=== PATIENT | female | born 1935 | race African-American/Black ===

== ENCOUNTER 2017-12-12 10:12 | Inpatient (IN) | payer OTHER ==
--- OUTSIDE RECORDS SUMMARY | 2017-12-12 10:14 | XMS REPORT | Clinical Summary ---
:1935 Author Organization [facility] Address [address] [place] [address] Care Team Providers Name Role Phone Ester Gama MD Primary Care Provider Allergies No Known Allergies Current Medications Prescription Sig. Disp. Refills Start Date End Date Status carvedilol (COREG) Take 12.5 mg by Active 12.5 MG tablet mouth 2 (two) times a day with meals. clopidogrel Take 75 mg by Active (PLAVIX) 75 mg mouth daily. tablet digOXIN (LANOXIN) Take 125 mcg by Active 125 mcg tablet mouth daily. furosemide (LASIX) Take 40 mg by Active 40 mg tablet mouth 2 (two) times a day. megestrol (MEGACE) Take 800 mg by Active 400 mg/10 mL (10 mouth daily. mL) suspension metFORMIN Take 500 mg by Active (GLUCOPHAGE) 500 mg mouth 2 (two) tablet times a day with meals. NIFEdipine CC Take 90 mg by Active (ADALAT CC) 90 MG mouth daily. 24 hr tablet collagenase Apply 1 Active (SANTYL) ointment application topically daily. valsartan (DIOVAN) Take 160 mg by Active 160 MG tablet mouth daily. aspirin (ECOTRIN) Take 81 mg by Active 81 MG enteric mouth daily. coated tablet loperamide Take 2 mg by Active (IMODIUM) 2 mg mouth as needed capsule for diarrhea. pantoprazole 4 Infuse 10 mL (40 1 each 11/13/2017 Active mg/mL in sodium mg total) into a chloride injection venous catheter daily before breakfast. lisinopril Take 5 mg by 11/03/2017 Discontinued (PRINIVIL,ZESTRIL) mouth daily. 5 mg tablet cefepime IVPB 1 Infuse 1 g into a 11/12/2017 11/26/2017 gram Mini-Bag Plus venous catheter every 12 (twelve) hours for 14 days. Active Problems Problem Noted Date Toxic metabolic encephalopathy 11/03/2017 Upper GI bleed 11/02/2017 Overview: Added automatically from request for surgery [id number] Encounters Date Type Specialty Care Team Description 11/12/2017 Anesthesia Event Gastroenterology Marija Can MD 11/12/2017 Procedure Pass Gastroenterology 11/12/2017 Surgery Gastroenterology Rosa, EGD WITH PEG Denny Khan MD INSERTION 11/07/2017 Anesthesia Event Intensive Care Junie Hodgson CRNA 11/07/2017 Procedure Pass Gastroenterology 11/07/2017 Surgery Gastroenterology Rosa EGD WITH control of Denny Khan MD bleeding 11/07/2017 Procedure Pass General Surgery 11/03/2017 [facility] Internal Ester Gama Upper GI bleed (Primary Dx ); - Encounter Medicine MD Mickey Toxic metabolic encephalopathy 11/13/2017 after 12/11/2016 Social History Tobacco Use Types Packs/Day Years Used Date Never Smoker Smokeless Tobacco: Never Used Alcohol Use Drinks/Week oz/Week Comments No Sex Assigned at Date Recorded Not on file Last Filed Vital Signs Vital Sign Reading Time Taken Blood Pressure 117/59 11/13/2017 11:30 AM CDT Pulse 84 11/13/2017 12:00 PM CDT Temperature 36.1 C (96.9 F) 11/13/2017 11:30 AM CDT Respiratory Rate 18 11/13/2017 12:00 PM CDT Oxygen Saturation 99% 11/13/2017 12:00 PM CDT Inhaled Oxygen Concentration - - Weight 56.7 kg (125 lb) 11/13/2017 3:00 AM CDT Height 170.2 cm (5' 7") 11/03/2017 2:14 AM CDT Body Mass Index 19.58 11/13/2017 3:00 AM CDT Plan of Treatment Health Maintenance Due Date Last Done Comments SHINGRIX VACCINE (#1) 1987 ZOSTER VACCINE 1997 PNEUMOCOCCAL POLYSACCHARIDE VACCINE AGE 65 AND OVER 2002 PNEUMOCOCCAL-13 2002 INFLUENZA VACCINE 03/05/2018 Procedures Procedure Name Priority Date/Time Associated Diagnosis Comments EGD WITH PEG 11/12/2017 8:45 AM Toxic metabolic INSERTION CDT encephalopathy EGD WITH control of 11/07/2017 2:00 PM Upper GI bleed bleeding CDT CONSULT TO OSTOMY Routine 11/03/2017 4:20 AM CARE NURSE CDT after 12/11/2016 Results POC glucose (11/13/2017 11:32 AM)Only the most recent of53 resultswithin the time period is included. Component Value Ref Range POC glucose 164 (H) 65 - 99 mg/dL Comment: RN Notified Meter ID: [id number] Phosphoric Acid Supervisor: Charlenevijaytwin Tyler Specimen Performing Laboratory [facility] DEPARTMENT OF PATHOLOGY AND GENOMIC MEDICINE [address] [place] [phone] Estimated GFR (11/13/2017 4:45 AM)Only the most recent of13 resultswithin the time period is included. Component Value Ref Range GFR Non Af Amer 19 (A) mL/min/1.73 m2 GFR Af Amer 24 (A) mL/min/1.73 m2 Comment: Chronic kidney disease: <60 mL/min/1.73m2 Kidney failure: <15 mL/min/1.73m2 The estimated GFR is calculated from the IDMS-traceable Modification of Diet in Renal Disease Equation. The accuracy of the calculation is poor when the creatinine is normal. Calculated values >90 mL/min/1.73m2 are not reported. This equation has not been validated in children (<18 years), women, the elderly (>70 years), or ethnic groups other than Caucasians and Americans. Specimen Performing Laboratory Plasma specimen [facility] DEPARTMENT OF PATHOLOGY AND GENOMIC MEDICINE [address] [place] [phone] CBC with platelet and differential (11/13/2017 4:45 AM)Only the most recent of12 resultswithin the time period is included. Component Value Ref Range WBC 9.3 4.5 - 11.0 k/uL RBC 3.05 (L) 4.20 - 5.50 m/uL HGB 8.8 (L) 12.0 - 16.0 g/dL HCT 25.4 (L) 37.0 - 47.0 % MCV 83.3 82.0 - 100.0 fL MCH 28.9 27.0 - 34.0 pg MCHC 34.6 31.0 - 37.0 g/dL RDW - SD 49.3 37.0 - 55.0 fL MPV 11.4 (H) 6.9 - 11.0 fL Platelet count 62 (L) 150 - 400 K/uL Nucleated RBC 0.50 /100 WBC Neutrophils 76.3 (H) 39.0 - 69.0 % Lymphocytes 13.7 (L) 25.0 - 45.0 % Monocytes 7.3 0.0 - 10.0 % Eosinophils 1.5 0.0 - 5.0 % Basophils 0.1 0.0 - 1.0 % Immature granulocytes 1.1 (H) 0.0 - 1.0 % Specimen Performing Laboratory Blood [facility] DEPARTMENT OF PATHOLOGY AND [facility] MEDICINE [address] [place] [phone] Comprehensive metabolic panel (11/13/2017 4:45 AM)Only the most recent of8 resultswithin the time period is included. Component Value Ref Range Sodium 135 135 - 148 mEq/L Potassium 3.9 3.5 - 5.0 mEq/L Chloride 105 98 - 112 mEq/L CO2 17 (L) 24 - 31 mEq/L Anion gap 13 7 - 15 mEq/L Comment: Starting from November , anion gap calculation no longer incorporates potassium. Please note the change. BUN 51 (H) 8 - 23 mg/dL Creatinine 2.4 (H) 0.5 - 0.9 mg/dL Glucose 152 (H) 65 - 99 mg/dL Calcium 8.6 (L) 8.8 - 10.2 mg/dL Protein 5.1 (L) 6.3 - 8.3 g/dL Albumin 2.1 (L) 3.5 - 5.0 g/dL A/G ratio 0.7 0.7 - 3.8 Alkaline phosphatase 83 35 - 104 U/L AST 9 (L) 10 - 35 U/L ALT 6 5 - 50 U/L Total bilirubin 0.3 0.2 - 1.2 mg/dL Specimen Performing Laboratory Plasma specimen [facility] OF PATHOLOGY AND [address] [address] Prothrombin time with INR (11/12/2017 6:20 AM)Only the most recent of5 resultswithin the time period is included. Component Value Ref Range Prothrombin time 19.0 (H) 12.0 - 15.0 sec INR 1.6 Comment: The International Normalized Ratio (INR) is a therapeutic monitoring tool for patients who are stable on oral anticoagulant therapy. An INR of 2.0-3.0 is suggested for deep vein thrombosis/pulmonary embolism. Specimen Performing Laboratory Blood [facility] PATHOLOGY [address] [address] Phosphorus level (11/11/2017 4:10 AM)Only the most recent of3 resultswithin the time period is included. Component Value Ref Range Phosphorus 3.0 2.4 - 4.5 mg/dL Specimen Performing Laboratory Plasma specimen [facility] [place] [address] Magnesium level (11/11/2017 4:10 AM)Only the most recent of9 resultswithin the time period is included. Component Value Ref Range Magnesium 1.9 1.6 - 2.4 mg/dL Specimen Performing Laboratory [place] [address] Basic metabolic panel (11/11/2017 4:10 AM)Only the most recent of5 resultswithin the time period is included. Component Value Ref Range Sodium 140 135 - 148 mEq/L Potassium 4.4 3.5 - 5.0 mEq/L Chloride 110 98 - 112 mEq/L CO2 16 (L) 24 - 31 mEq/L Anion gap 14 7 - 15 mEq/L Comment: Starting from November , anion gap calculation no longer incorporates potassium. Please note the change. BUN 53 (H) 8 - 23 mg/dL Creatinine 2.3 (H) 0.5 - 0.9 mg/dL Glucose 227 (H) 65 - 99 mg/dL Calcium 8.4 (L) 8.8 - 10.2 mg/dL Specimen Performing Laboratory Plasma specimen [facility] PATHOLOGY [place] [address] Hemoglobin & hematocrit (11/08/2017 10:05 AM)Only the most recent of4 resultswithin the time period is included. Component Value Ref Range HGB 9.8 (L) 12.0 - 16.0 g/dL HCT 27.8 (L) 37.0 - 47.0 % Specimen Performing Laboratory Blood [facility] PATHOLOGY [place] [address] Transfuse RBC (11/08/2017 5:49 AM)Only the most recent of5 resultswithin the time period is included.Transfuse fresh frozen plasma (11/08/2017 3:32 AM)Only the most recent of5 resultswithin the time period is included.Partial thromboplastin time, activated (11/08/2017 2:45 AM)Only the most recent of3 resultswithin the time period is included. Component Value Ref Range PTT 37.7 (H) 23.0 - 36.0 sec Comment: PTT therapeutic range for unfractionated heparin is 61.0-112.0 seconds which corresponds to Anti-Xa 0.3-0.7 U/ml. Specimen Performing Laboratory Blood [facility] [place] [address] Fibrinogen (11/08/2017 2:45 AM) Component Value Ref Range Fibrinogen 210 200 - 450 mg/dL Specimen Performing Laboratory Blood [facility] [place] [address] Lactic acid level (11/08/2017 2:45 AM)Only the most recent of3 resultswithin the time period is included. Component Value Ref Range Lactic acid 1.6 0.5 - 2.2 mmol/L Specimen Performing Laboratory Plasma specimen [facility] PATHOLOGY [place] [address] Ionized calcium (11/08/2017 2:45 AM) Component Value Ref Range pH 7.42 Ionized calcium 1.18 1.11 - 1.32 mmol/L Specimen Performing Laboratory [place] [address] Transfuse platelets (11/07/2017 10:07 PM)Only the most recent of2 resultswithin the time period is included.Hemoglobin A1c (11/07/2017 5:10 PM) Component Value Ref Range Hemoglobin A1C 5.9 4.0 - 6.0 % Comment: Less than 6% - Goal of therapy for Type II Diabetes Less than 7%-Goal of therapy for Type I Diabetes Less than 8%-Acceptable control for Type I or Type II Diabetes Greater than 8%-Unacceptable control; action indicated. (ADA94) Specimen Performing Laboratory Blood [facility] PATHOLOGY AND [place] [address] ECG 12 lead (11/07/2017 9:33 AM) Component Value Ref Range Ventricular rate 85 Atrial rate 85 OH interval 112 QRSD interval 72 QT interval 358 QTC interval 426 P axis 1 0 QRS axis 1 127 T wave axis -39 EKG impression Electronic ventricular pacemaker-No previous ECGs available- Specimen Performing Laboratory [facility] [address] [place] [address] Arterial blood gas (11/07/2017 8:22 AM) Component Value Ref Range pH, arterial 7.38 7.35 - 7.45 pCO2, arterial 16 (LL)Comment: Result called with read 35 - 45 mmHg back to Margy Machado RN/5E 08:39 11/07/2017 slel pO2, arterial 132 (H) 80 - 90 mmHg Bicarbonate, arterial 8.9 (L) 21.0 - 28.0 mmol/L Base excess, arterial -16 (L) -2 - 2 mEq/L O2 saturation, arterial 98 95 - 100 % Specimen Performing Laboratory Blood [facility] DEPARTMENT OF PATHOLOGY AND GENOMIC MEDICINE [address] [place] [address] Prepare RBC, 4 Units (11/07/2017 7:45 AM)Only the most recent of3 resultswithin the time period is included. Component Value Ref Range Product name Red Blood Cells -1, Leukored Unit number [id number] Product code [id number] Dispense status Transfused Blood expiration date Blood type code 8400 Blood type AB POSITIVE Product name Red Blood Cells -1, Leukored Unit number [id number] Product code [id number] Dispense status Transfused Blood expiration date [id number] Blood type code 8400 Blood type AB POSITIVE Specimen Performing Laboratory [facility] DEPARTMENT OF PATHOLOGY AND GENOMIC MEDICINE [address] [place] [address] Type and screen (11/07/2017 7:45 AM)Only the most recent of2 resultswithin the time period is included. Component Value Ref Range ABO grouping AB Rh type POS Antibody screen (gel) NEG Specimen Performing Laboratory [facility] DEPARTMENT OF PATHOLOGY AND GENOMIC MEDICINE [address] [place] [address] Occult blood, stool (11/06/2017 4:00 PM) Component Value Ref Range Occult blood, stool Positive for Occult blood (A) Comment: Specimen Information Specimen Source: Stool Specimen Site: Nonpreserved Specimen Performing Laboratory Stool - Nonpreserved [facility] DEPARTMENT OF PATHOLOGY AND GENOMIC MEDICINE [address] [place] [address] IR PICC Placement (11/06/2017 2:06 PM) Specimen Performing Laboratory [facility] [address] [place] [address] Narrative Procedure: PICC insertion. Clinical indication: Need for long-term intravenous medication. Consent: Written informed consent was obtained prior to the procedure. Technique: All elements of maximal sterile barrier technique were followed. The right upper extremity was sterilely prepared and draped in the routine manner. Lidocaine 1% was used for local anesthetic. Using real-time ultrasound guidance, a 21-gauge micropuncture needle was used to access the right basilic vein. A 0.018 inch guidewire was advanced centrally to the right atrium under fluoroscopy. The needle was removed and a 5.5-Swiss peel-away sheath was then placed. Under ultrasound guidance, documentation of vessel patency, needle access with permanent recording, and reporting are performed followed by placement of a sheath in the right basilic vein. A 38 cm long 5-Swiss dual-lumen Power PICC was then deployed over the guidewire and through the peel-away sheath. The catheter tip was placed at the right atrium/superior vena cava junction under fluoroscopic guidance. All ports were tested and demonstrate adequate flow. The catheter was secured to then skin using 2-0 silk suture. The patient tolerated the procedure well. Fluoroscopy time: 1.4 minutes. Estimated blood loss: Less than 5 cc. Complications: No immediate. Impression: Technically successful PICC insertion. Procedure Note Interface, Radiology Results Incoming - 11/06/2017 2:19 PM CDT Procedure: PICC insertion. Clinical indication: Need for long-term intravenous medication. Consent: Written informed consent was obtained prior to the procedure. Technique: All elements of maximal sterile barrier technique were followed. The right upper extremity was sterilely prepared and draped in the routine manner. Lidocaine 1% was used for local anesthetic. Using real-time ultrasound guidance, a 21-gauge micropuncture needle was used to access the right basilic vein. A 0.018 inch guidewire was advanced centrally to the right atrium under fluoroscopy. The needle was removed and a 5.5-Swiss peel-away sheath was then placed. Under ultrasound guidance, documentation of vessel patency, needle access with permanent recording, and reporting are performed followed by placement of a sheath in the right basilic vein. A 38 cm long 5-Swiss dual-lumen Power PICC was then deployed over the guidewire and through the peel-away sheath. The catheter tip was placed at the right atrium/superior vena cava junction under fluoroscopic guidance. All ports were tested and demonstrate adequate flow. The catheter was secured to then skin using 2-0 silk suture. The patient tolerated the procedure well. Fluoroscopy time: 1.4 minutes. Estimated blood loss: Less than 5 cc. Complications: No immediate. Impression: Technically successful PICC insertion. US Guided Vascular Access (11/06/2017 2:06 PM) Specimen Performing Laboratory [address] [place] [address] Narrative Procedure: PICC insertion. Clinical indication: Need for long-term intravenous medication. Consent: Written informed consent was obtained prior to the procedure. Technique: All elements of maximal sterile barrier technique were followed. The right upper extremity was sterilely prepared and draped in the routine manner. Lidocaine 1% was used for local anesthetic. Using real-time ultrasound guidance, a 21-gauge micropuncture needle was used to access the right basilic vein. A 0.018 inch guidewire was advanced centrally to the right atrium under fluoroscopy. The needle was removed and a 5.5-Swiss peel-away sheath was then placed. Under ultrasound guidance, documentation of vessel patency, needle access with permanent recording, and reporting are performed followed by placement of a sheath in the right basilic vein. A 38 cm long 5-Swiss dual-lumen Power PICC was then deployed over the guidewire and through the peel-away sheath. The catheter tip was placed at the right atrium/superior vena cava junction under fluoroscopic guidance. All ports were tested and demonstrate adequate flow. The catheter was secured to then skin using 2-0 silk suture. The patient tolerated the procedure well. Fluoroscopy time: 1.4 minutes. Estimated blood loss: Less than 5 cc. Complications: No immediate. Impression: Technically successful PICC insertion. Procedure Note Interface, Radiology Results Incoming - 11/06/2017 2:19 PM CDT Procedure: PICC insertion. Clinical indication: Need for long-term intravenous medication. Consent: Written informed consent was obtained prior to the procedure. Technique: All elements of maximal sterile barrier technique were followed. The right upper extremity was sterilely prepared and draped in the routine manner. Lidocaine 1% was used for local anesthetic. Using real-time ultrasound guidance, a 21-gauge micropuncture needle was used to access the right basilic vein. A 0.018 inch guidewire was advanced centrally to the right atrium under fluoroscopy. The needle was removed and a 5.5-Swiss peel-away sheath was then placed. Under ultrasound guidance, documentation of vessel patency, needle access with permanent recording, and reporting are performed followed by placement of a sheath in the right basilic vein. A 38 cm long 5-Swiss dual-lumen Power PICC was then deployed over the guidewire and through the peel-away sheath. The catheter tip was placed at the right atrium/superior vena cava junction under fluoroscopic guidance. All ports were tested and demonstrate adequate flow. The catheter was secured to then skin using 2-0 silk suture. The patient tolerated the procedure well. Fluoroscopy time: 1.4 minutes. Estimated blood loss: Less than 5 cc. Complications: No immediate. Impression: Technically successful PICC insertion. Pv duplex arterial lower extremity (11/05/2017 10:49 AM) Specimen Performing Laboratory [address] [address] Narrative EXAM: US DUPLEX ARTERIAL LOWER EXTREMITY BILATERAL HISTORY: peripheral arterial occlusive disease TECHNIQUE: Real-time as well as pulsed and color Doppler evaluation of bilateral common femoral, femoral, popliteal, posterior tibial, anterior tibial, and dorsalis pedis arteries are evaluated. The examination includes a full duplex Doppler scan of the blood vessels (real-time P mode grayscale, Doppler spectral analysis, and Doppler color flow imaging). Systolic pressures were obtained in the upper and lower extremities for determination of ankle-brachial indices. COMPARISON: There are no prior comparable exams at this institution. IMPRESSION: 1.No evidence of local flow-limiting stenosis within the right or left lower extremity arterial vasculature. 2.Waveform changes and diminished distal peak systolic velocities bilaterally suggests sequela of multifocal disease. 3. Right lower extremity ABIs correlate to moderate PAD. Left lower extremity ABIs could not be calculated, as the vessels were noncompressible. FINDINGS:No velocity gradients within the left or right lower extremity to suggest focal flow-limiting stenosis. NELSON in the right lower extremity compatible with moderate PAD. Left lower survey ABIs could not be obtained as the vessels are noncompressible. RIGHT LEG: PEAK SYSTOLIC VELOCITIES ARE FOLLOWS: COMMON FEMORAL:86 cm/s. FEMORAL: Proximal: -71.72 cm/s Mid:- 90.40 cm/s Distal:-56.05 cm/s POPLITEAL: Proximal:83.09 cm/s Mid:- 86.01 cm/s Distal: - 112.89 cm/s POSTERIOR TIBIAL: Proximal: 72.32 cm/s Mid: 40.04 cm/s Distal:-18.58 cm/s ANTERIOR TIBIAL: Proximal: 37.21 cm/s Mid:- 38.30 cm/s Distal:36.55 cm /s DORSALIS PEDIS: -23.10 cm/s DOPPLER WAVEFORMS: COMMON FEMORAL: Triphasic FEMORAL Proximal: Biphasic Mid: Biphasic Distal: Biphasic POPLITEAL Proximal: Biphasic Mid: Biphasic Distal: Biphasic POSTERIOR TIBIAL Proximal: Biphasic Mid: Biphasic Distal: Biphasic ANTERIOR TIBIAL Proximal: Monophasic Mid: Monophasic Distal: Monophasic DORSALIS PEDIS: Monophasic ANKLE BRACHIAL INDEX: Posterior tibial: 0.57 Dorsalis pedis: Noncompressible. LEFT LEG: PEAK SYSTOLIC VELOCITIES ARE FOLLOWS: COMMON FEMORAL:66.21 cm/s FEMORAL: Proximal: -49.64 cm/s Mid:- 64.47 cm/s Distal:-51.38 cm/s POPLITEAL: Proximal: 66.21 cm/s Mid:- 62.72 cm/s Distal: -54.87 cm/s POSTERIOR TIBIAL: Proximal: 80.13 cm/s Mid: 39.95 cm/s Distal:25.70 cm /s ANTERIOR TIBIAL: Proximal:49.64 cm/s Mid:- 19.18 cm/s Distal: 133.84 cm/s DORSALIS PEDIS:-16.69 cm/s DOPPLER WAVEFORMS: COMMON FEMORAL: Triphasic FEMORAL Proximal: Biphasic Mid: Biphasic Distal: Biphasic POPLITEAL Proximal: Biphasic Mid: Biphasic Distal: Biphasic POSTERIOR TIBIAL Proximal: Biphasic Mid: Monophasic Distal: Monophasic ANTERIOR TIBIAL Proximal: Biphasic Mid: Monophasic Distal: Monophasic DORSALIS PEDIS: Monophasic ANKLE BRACHIAL INDEX: Posterior tibial: Noncompressible. Dorsalis pedis: Noncompressible. [id number] NELSON Guidelines: >1.4: Calcified Vessel 0.9-1.4: Normal 0.7-0.89: Mild PAD 0.51-0.69: Moderate PAD <0.5: Severe PAD Procedure Note Hm Interface, Radiology Results Incoming - 11/05/2017 11:04 AM CDT EXAM: US DUPLEX ARTERIAL LOWER EXTREMITY BILATERAL HISTORY: peripheral arterial occlusive disease TECHNIQUE: Real-time as well as pulsed and color Doppler evaluation of bilateral common femoral, femoral, popliteal, posterior tibial, anterior tibial , and dorsalis pedis arteries are evaluated. The examination includes a full duplex Doppler scan of the blood vessels (real-time P mode grayscale, Doppler spectral analysis, and Doppler color flow imaging). Systolic pressures were obtained in the upper and lower extremities for determination of ankle-brachial indices. COMPARISON: There are no prior comparable exams at this institution. IMPRESSION: 1. No evidence of local flow-limiting stenosis within the right or left lower extremity arterial vasculature. 2. Waveform changes and diminished distal peak systolic velocities bilaterally suggests sequela of multifocal disease. 3. Right lower extremity ABIs correlate to moderate PAD. Left lower extremity ABIs could not be calculated, as the vessels were noncompressible. FINDINGS: No velocity gradients within the left or right lower extremity to suggest focal flow-limiting stenosis. NELSON in the right lower extremity compatible with moderate PAD. Left lower survey ABIs could not be obtained as the vessels are noncompressible. RIGHT LEG: PEAK SYSTOLIC VELOCITIES ARE FOLLOWS: COMMON FEMORAL: 86 cm/s. FEMORAL: Proximal: -71.72 cm/s Mid: -90.40 cm/s Distal: -56.05 cm/s POPLITEAL: Proximal: 83.09 cm/s Mid: -86.01 cm/s Distal: -112.89 cm/s POSTERIOR TIBIAL: Proximal: 72.32 cm/s Mid: 40.04 cm/s Distal: -18.58 cm/s ANTERIOR TIBIAL: Proximal: 37.21 cm/s Mid: -38.30 cm/s Distal: 36.55 cm/s DORSALIS PEDIS: -23.10 cm/s DOPPLER WAVEFORMS: COMMON FEMORAL: Triphasic FEMORAL Proximal: Biphasic Mid: Biphasic Distal: Biphasic POPLITEAL Proximal: Biphasic Mid: Biphasic Distal: Biphasic POSTERIOR TIBIAL Proximal: Biphasic Mid: Biphasic Distal: Biphasic ANTERIOR TIBIAL Proximal: Monophasic Mid: Monophasic Distal: Monophasic DORSALIS PEDIS: Monophasic ANKLE BRACHIAL INDEX: Posterior tibial: 0.57 Dorsalis pedis: Noncompressible. LEFT LEG: PEAK SYSTOLIC VELOCITIES ARE FOLLOWS: COMMON FEMORAL: 66.21 cm/s FEMORAL: Proximal: -49.64 cm/s Mid: -64.47 cm/s Distal: -51.38 cm/s POPLITEAL: Proximal: 66.21 cm/s Mid: -62.72 cm/s Distal: -54.87 cm/s POSTERIOR TIBIAL: Proximal: 80.13 cm/s Mid: 39.95 cm/s Distal: 25.70 cm/s ANTERIOR TIBIAL: Proximal: 49.64 cm/s Mid: -19.18 cm/s Distal: 133.84 cm/s DORSALIS PEDIS: -16.69 cm/s DOPPLER WAVEFORMS: COMMON FEMORAL: Triphasic FEMORAL Proximal: Biphasic Mid: Biphasic Distal: Biphasic POPLITEAL Proximal: Biphasic Mid: Biphasic Distal: Biphasic POSTERIOR TIBIAL Proximal: Biphasic Mid: Monophasic Distal: Monophasic ANTERIOR TIBIAL Proximal: Biphasic Mid: Monophasic Distal: Monophasic DORSALIS PEDIS: Monophasic ANKLE BRACHIAL INDEX: Posterior tibial: Noncompressible. Dorsalis pedis: Noncompressible. [facility]-[id number] NELSON Guidelines: >1.4: Calcified Vessel 0.9-1.4: Normal 0.7-0.89: Mild PAD 0.51-0.69: Moderate PAD <0.5: Severe PAD XR Chest 1 Vw Portable (11/05/2017 5:40 AM)Only the most recent of2 resultswithin the time period is included. Specimen Performing Laboratory [facility] [address] [place] [address] Narrative EXAMINATION:XR CHEST 1 VW PORTABLE CLINICAL HISTORY:Pneumonia COMPARISON:Most Recent IMPRESSION: Heart and mediastinum are stable. Left-sided AICD again noted. Perihilar interstitial and patchy opacities without new infiltrates. Bones are osteopenic. [facility]-[id number] Procedure Note Interface, Radiology Results Incoming - 11/05/2017 7:31 AM CDT EXAMINATION: XR CHEST 1 VW PORTABLE CLINICAL HISTORY: Pneumonia COMPARISON: Most Recent IMPRESSION: Heart and mediastinum are stable. Left-sided AICD again noted. Perihilar interstitial and patchy opacities without new infiltrates. Bones are osteopenic. [facility]-[id number] Total iron binding capacity (11/05/2017 4:35 AM) Component Value Ref Range Iron level 106 37 - 145 ug/dL Iron binding capacity 137 (L) 260 - 460 ug/dL % Saturation 77.4 (H) 15.0 - 38.0 % Specimen Performing Laboratory Plasma specimen [facility] DEPARTMENT OF PATHOLOGY AND [facility] [address] [place] [address] Folate level (11/05/2017 4:35 AM) Component Value Ref Range Folate 2.9 (L) 4.8 - 24.2 ng/mL Specimen Performing Laboratory Serum [facility] DEPARTMENT OF PATHOLOGY AND GENOMIC MEDICINE [address] [place] [id number] Ferritin level (11/05/2017 4:35 AM) Component Value Ref Range Ferritin level 439 (H) 13 - 150 ng/mL Specimen Performing Laboratory Plasma specimen [facility] DEPARTMENT OF PATHOLOGY AND GENOMIC MEDICINE [address] [place] [id number] Prepare platelet pheresis, 1 Units (11/04/2017 9:10 AM) Component Value Ref Range Product name Apheresis PLT, Leukored IRR #2 Unit number [id number] Product code [id number] Dispense status Transfused Blood expiration date Blood type code 6200 Blood type A POSITIVE Specimen Performing Laboratory [facility] DEPARTMENT OF PATHOLOGY AND GENOMIC MEDICINE [address] [place], [place] [address] Prepare fresh frozen plasma, 4 Units (11/04/2017 9:10 AM) Component Value Ref Range Product name Thawed Plasma Unit number [id number] Product code [id number] Dispense status Transfused Blood expiration date Blood type code 8400 Blood type AB POSITIVE Product name Thawed Plasma Unit number [id number] Product code [id number] Dispense status Transfused Blood expiration date Blood type code 8400 Blood type AB POSITIVE Product name Thawed Plasma Unit number [id number] Product code [id number] Dispense status Transfused Blood expiration date Blood type code 8400 Blood type AB POSITIVE Product name Thawed Plasma Unit number [id number] Product code [id number] Dispense status Transfused Blood expiration date Blood type code 8400 Blood type AB POSITIVE Specimen Performing Laboratory Blood [facility] DEPARTMENT OF PATHOLOGY AND GENOMIC MEDICINE [address] [place] [address] Thyroid stimulating hormone (11/04/2017 4:40 AM) Component Value Ref Range TSH 2.28 0.27 - 4.20 uIU/mL Specimen Performing Laboratory Plasma specimen [facility] DEPARTMENT OF PATHOLOGY AND GENOMIC MEDICINE [address] [place] [phone] Digoxin level (11/04/2017 4:40 AM) Component Value Ref Range Digoxin 3.2 (HH) 0.8 - 2.0 ng/mL Comment: For valid Digoxin results, at least 6 hours should elapse between time of last dose and collection of blood. Otherwise, result may be false high. Therapeutic Range: 0.8 - 2.0 ng/mL Final results called to and read back by JOAN MATTHEWS 11/04/2017 05:58 AR Specimen Performing Laboratory Plasma specimen [facility] DEPARTMENT OF PATHOLOGY AND GENOMIC MEDICINE [address] [place] [id number] Urinalysis screen and microscopy, with reflex to culture (11/03/2017 2:45 PM) Component Value Ref Range Specimen site [place] Color, UA Yellow Appearance, UA Turbid Specific gravity, UA 1.009 1.001 - 1.030 pH, UA 5.0 5.0 - 9.0 Protein, UA 1+ (A) Negative Glucose, UA Negative Negative Ketones, UA Trace (A) Negative Bilirubin, UA Negative Negative Blood, UA Moderate (A) Negative Nitrite, UA Negative Negative Urobilinogen, UA <2.0 <2.0 E.U./dL Leukocyte esterase, UA Large (A) Negative Epithelial cells, UA 7 /HPF WBC, UA >200 (H) 0 - 4 /HPF RBC, UA 84 (H) 0 - 2 /HPF Bacteria, UA Few None seen WBC clumps, UA Many (A) Yeast, UA Few (A) Yeast with pseudohyphae, UA None seen Hyaline casts, UA >20 (A) /LPF Specimen Performing Laboratory Urine [facility] DEPARTMENT OF PATHOLOGY AND GENOMIC MEDICINE [address] [place] [id number] Gram stain (11/03/2017 2:45 PM) Component Value Ref Range Gram stain result Many WBC's Many Yeast Comment: Specimen Information Specimen Source: Urine Specimen Site: [place] Specimen Performing Laboratory Urine - [place] [facility] DEPARTMENT OF PATHOLOGY AND GENOMIC MEDICINE [address] [place] [address] Urine culture (11/03/2017 2:45 PM) Component Value Ref Range Urine culture isolate Rosy glabrata >10-5 cfu/ml The performance characteristics of this assay on this isolate were validated by the Microbiology Laboratory at [facility].This source has not been approved by the U.S. Food and Drug Administration.The results are not intended to be used as the sole means for clinical diagnosis or patient management.The Microbiology Laboratory is authorized under the clinical Laboratory Improvement Amendments of 1988 (CLIA-88) to perform high complexity testing. (A) Comment: Specimen Information Specimen Source: Urine Specimen Site: [place] Specimen Performing Laboratory Urine - [place] [facility] DEPARTMENT OF PATHOLOGY AND GENOMIC MEDICINE [address] [place] [address] Organism Antibiotic Method Susceptibility Rosy glabrata Micafungin BP 0.016 mcg/mL: Susceptible Rosy glabrata Amphotericin B BP 2 mcg/mL Rosy glabrata Posiconazole BP >8 mcg/mL Rosy glabrata Itraconazole BP >16 mcg/mL Rosy glabrata Fluconazole BP >256 mcg/mL: Resistant Blood culture, aerobic & anaerobic (11/03/2017 1:12 AM)Only the most recent of2 resultswithin the time period is included. Component Value Ref Range Blood culture isolate No growth after 5 days of incubation. Comment: Specimen Information Specimen Source: Blood Specimen Site: Hand Left Specimen Performing Laboratory Blood - Antecubital, right [facility] DEPARTMENT OF PATHOLOGY AND GENOMIC MEDICINE [address] [place] [address] after 12/11/2016 Insurance Payer Benefit Plan / Group Subscriber ID Type Phone Address MEDICAID MEDICAID xxxxxxxxx Medicaid MEDICARE MEDICARE PART A AND B xxxxxxxxxx Medicare [place], [place] [phone] [place], [place] [phone]
--- OUTSIDE RECORDS SUMMARY | 2017-12-12 10:15 | XMS REPORT ---
:1935 [facility] [address] [place] [address] [address]. Flores [address] [place] [address] Care Team Providers Name Role Phone HARDIK COOK Primary Care Provider Unavailable HARDIK COOK Unavailable Unavailable DR BYRON LIZARRAGA Unavailable Unavailable Problems This patient has no known problems. Allergies, Adverse Reactions, Alerts This patient has no known allergies or adverse reactions. Medications This patient has no known medications. Encounters Start End Encounter Admission Attending Care Care Encounter Date/Time Date/Time Type Type Clinicians Facility Department ID 2017-09-10 2017-09-10 Outpatient Telma COOK [facility] [id number] 18:56:00 18:56:00 HARDIK 2017-07-01 2017-07-04 Inpatient DAWOOD CARVALHO TELE [id number] 22:15:00 15:46:00 BYRON Results Test Description Test Time Test Comments Text Results Atomic Results Result Comments Sed Rate ESR ([place]) 2017-09-10 22:33:00 Test Item Value Reference Range Comments ESR (test code=HESR) 44 mm/Hr 0-20 CBC with [id number] 20:59:00 Test Item Value Reference Range Comments WBC (test code=WBC) 7.6 K/cumm 4.4-10.5 RBC (test code=RBC) 3.37 M/cumm 3.75-5.20 Hemoglobin (test code=HGB) 9.2 gm/dL 12.2-14.8 Hematocrit (test code=HCT) 30.9 % 36.5-44.4 MCV (test code=MCV) 91.6 fL 80-100 MCH (test code=MCH) 27.2 pg 27.0-32.5 MCHC (test code=MCHC) 29.7 g/dL 32.0-37.5 RDW (test code=RDW) 13.8 % 11.5-14.5 Platelet Count (test code=PLTCT) 250 K/cumm 140-440 MPV (test code=MPV) 9.3 fL Diff Method (test code=DIFFM) Auto Neutrophil (test code=NEUT) 70.5 % 36-70 Lymphocyte (test code=LYMPH) 21.3 % 12-44 Monocyte (test code=MONO) 6.5 % 0-11 Eosinophil (test code=EOS) 1.3 % 0-7 Basophil (test code=BASO) 0.4 % 0-2 Neutro Abs (test code=ANEUT) 5.3 K/cumm 1.6-7.4 Lymph Abs (test code=ALYMPH) 1.6 K/cumm 0.5-4.6 [place] Abs (test code=AMONO) 0.5 K/cumm 0.0-1.2 Eos Abs (test code=AEOS) 0.10 K/cumm 0.00-0.74 Baso Abs (test code=ABASO) 0.0 K/cumm 0.00-0.21 Hypochromic (test code=HYPO) Slight Lipid [id number] 20:09:00 Test Item Value Reference Range Comments Cholesterol (test 208 mg/dL 0-200 code=CHOL) Triglycerides (test 178 mg/dL 9-200 code=TRIG) HDL (test code=HDL) 45 mg/dL 50-60 Chol/HDL (test 4.6 Ratio 0.0-4.4 code=CHOLPHDL) LDL, Calculated (test 127 mg/dL 0-130 (NOTE)RISK OF HEART code=LDLC) DISEASEPublished by [place] Heart AssociationAnalyte Optimal Boderline Increased RiskCHOL <200 200-239 >240TRIG <150 150-199 >200HDL Male: >60 <40HDL Female: >60 <50LDL <100 130-159 >160LDL NEAR OPTIMAL IS 100-129 VLDL (test code=VLDL) 36 mg/dL 5-40 LDL/HDL (test code=LDLPHDL) 3 [id number] 20:09:00 Test Item Value Reference Range Comments Lipase (test code=LIP) 31 U/L 13-60 [id number] 20:09:00 Test Item Value Reference Range Comments Amylase (test code=SHAKIR) 92 U/L 28-100 [id number] 20:09:00 Test Item Value Reference Range Comments NT ProBnp (test code=PBNP) 83662 pg/mL 0-449 Comprehensive Metabolic [id number] 20:09:00 Test Item Value Reference Range Comments Sodium (test code=NA) 135 mmol/L 135-145 Potassium (test code=K) 4.3 mmol/L 3.5-5.1 Chloride (test code=CL) 98 mmol/L 98-105 Carbon Dioxide (test 23 mmol/L 22-29 code=CO2) Glucose (test code=GLU) 113 mg/dL 70-115 Blood Urea Nitrogen (test 47 mg/dL 8-23 code=BUN) Creatinine (test 2.1 mg/dL 0.5-0.9 code=CREAT) Calcium (test code=CA) 9.5 mg/dL 8.3-10.5 Prot Total (test code=TP) 7.1 g/dL 6.4-8.3 Albumin (test code=ALB) 3.1 g/dL 3.5-5.2 A/G Ratio (test 0.8 Ratio code=AGRATIO) Globulin (test code=GLOB) 4.0 2.9-3.1 Bili Total (test 0.2 mg/dL 0.1-0.9 code=TBIL) Alk Phos (test 100 U/L 35-104 code=APHOS) AST (test code=AST) 14 U/L 1-32 ALT (test code=ALT) 7 U/L 1-33 BUN/Creatinine Ratio 22.4 (test code=BCRATIO) Anion Gap (test 14 mmol/L 7-16 code=AGAP) Estimated GFR (test 24 mL/min/1.73m2 eGFR (estimated Glomerular code=GFR) Filtration Rate) is an estimated value,calculated from the patient's serum creatinine using the MDRD equation.It is NOT the patient's actual GFR. The eGFR provides a more clinicallyuseful measure of kidney disease than serum creatinine alone.This calculation takes sex and race into account, if the informationis provided. If the race is not provided, and the patient isAfrican-Berm[place]ian, multiply by 1.212. If sex is not provided, and thepatient is female, multiply by 0.742. Results for patients <18 years ofage have not been validated by the MDRD study and should be interpretedwith caution.eGFR Result Interpretation:eGFR > or=60 is in the Normal RangeeGFR < 60 may mean kidney diseaseeGFR < 15 may mean kidney failureRanges recommended by the National Kidney Foundation,http://nkdep.nih .gov BLOOD [id number] 23:30:00 Test Item Value Reference Range Comments Culture Observations (test code=COB1) NO GROWTH AFTER 5 DAYS BLOOD [id number] 23:30:00 Test Item Value Reference Range Comments Culture Observations (test code=COB1) NO GROWTH AFTER 5 DAYS WOUND/SKIN/ABS.&GRAMSTAIN [id number] 08:20:00 Test Item Value Reference Range Comments Direct Exam (test code=DE1) few wbc Direct Exam (test code=DE2) Few epithelial cells Direct Exam (test code=DE3) Few gram negative rods Direct Exam (test code=DE4) rare gram positive cocci Isolate 1 (test code=ISO1) Pseudomonas aeruginosa piperacillin/tazobactam (test ug/mL code=tzp) ceftazidime (test code=santos) ug/mL cefepime (test code=fep) ug/mL meropenem (test code=mem) ug/mL gentamicin (test code=gm) ug/mL tobramycin (test code=tob) ug/mL levofloxacin (test code=lev) ug/mL GLUCOMETER GLUCOSE- LAB USE [id number] 11:39:00 Test Item Value Reference Range Comments GLUCOMETER (test code=GMG) 113 mg/dL 70-100 DAILY MAINTENANCEMeter ID: [id number]: [id number] JAYY NAVARRO URINE [id number] 11:21:00 Test Item Value Reference Range Comments Isolate 1 (test code=ISO1) Pseudomonas aeruginosa piperacillin/tazobactam (test ug/mL code=tzp) ceftazidime (test code=santos) ug/mL cefepime (test code=fep) ug/mL meropenem (test code=mem) ug/mL gentamicin (test code=gm) ug/mL tobramycin (test code=tob) ug/mL levofloxacin (test code=lev) ug/mL WOUND/SKIN/ABS.&GRAMSTAIN [id number] 10:08:00 Test Item Value Reference Range Comments Direct Exam (test code=DE1) many wbc Direct Exam (test code=DE2) Few Epithelial cells Direct Exam (test code=DE3) Few gram negative rods Direct Exam (test code=DE4) Few Gram positive cocci Isolate 1 (test code=ISO1) Pseudomonas aeruginosa piperacillin/tazobactam (test ug/mL code=tzp) ceftazidime (test code=santos) ug/mL cefepime (test code=fep) ug/mL meropenem (test code=mem) ug/mL gentamicin (test code=gm) ug/mL tobramycin (test code=tob) ug/mL levofloxacin (test code=lev) ug/mL GLUCOMETER GLUCOSE- LAB USE [id number] 05:13:00 Test Item Value Reference Range Comments GLUCOMETER (test code=GMG) 81 mg/dL 70-100 CLEANED METERMeter ID: [id number]: [id number] LETECIA GOLDMAN PRO TIME AND [id number] 04:39:00 Test Item Value Reference Range Comments PT (test code=TT) 11.2 s 9.8-13.6 INR (test code=INR) 1.0 INRH (test code=INRH) SUGGESTED THERAPEUTIC RANGE FOR INR: 2.5 - 3.5 For Patients with Prosthetic Valves or Patients with recurrent Thromboembolic Events 2.0 - 3.0 For Most Other Applications PTT (test code=PTT) 28.3 s 20.2-38.0 PTTH (test code=PTTH) To monitor the effectiveness of heparin, we offer the Anti-Xa (Heparin Assay). It can be used for either unfractionated or LMW Heparin. Order Code is ANTI-XA COMPREHENSIVE METABOLIC [id number] 04:32:00 Test Item Value Reference Range Comments GLUCOSE (test code=06D) 64 mg/dL 75-100 SODIUM (test code=01A) 141 mmol/L 136-145 POTASSIUM (test code=01B) 3.8 mmol/L 3.6-5.1 CHLORIDE (test code=04A) 110 mmol/L 98-107 CO2 (test code=02A) 22 mmol/L 22-32 ANION GAP (test code=ANG) 12.8 mmol/L BUN (test code=05D) 59 mg/dL 7-18 CREATININE (test code=03E) 2.6 mg/dL 0.4-1.1 BUN/CREA (test code=BCR) 23 12-20 CALCIUM (test code=09D) 8.8 mg/dL 8.3-9.5 BILI TOTAL (test code=11A) 0.5 mg/dL 0.2-1.0 PROTEIN (test code=07D) 6.9 g/dL 6.4-8.2 ALBUMIN (test code=08D) 2.4 g/dL 3.5-4.8 GLOBULIN (test code=GLB) 4.5 g/dL 1.5-3.8 ALB/GLOB (test code=AGRR) 0.5 1.0-2.6 ALK PHOS (test code=35A) 75 IU/L 42-121 AST (test code=30A) 19 IU/L <=42 ALT (test code=31A) 8 IU/L <=78 CBC (INCLUDES AUTOMATED DIFFERENTIAL)2017-07-04 04:19:00 Test Item Value Reference Range Comments WBC (test code=WBC) 7.4 10\S\3/uL 4.5-11.0 RBC (test code=RBC) 3.19 10\S\6/uL 3.80-5.80 HGB (test code=HBG) 9.0 g/dL 12.0-15.5 HCT (test code=HCT) 27.6 % 35.0-44.0 MCV (test code=MCV) 86.5 fL 81.0-99.0 MCH (test code=MCH) 28.2 pg 27.0-31.0 MCHC (test code=MCHC) 32.6 g/dL 32.0-36.0 RDW (test code=RDW) 12.8 % 11.5-14.5 PLT (test code=PLT) 218 10\S\3/uL 130-400 MPV (test code=MPV) 10.7 fL 9.4-12.4 NEUTROP # (test code=NE#) 4.4 10\S\3/uL 1.6-8.0 LYMPH # (test code=LY#) 2.0 10\S\3/uL 1.1-3.5 MONOCYTE # (test code=MO#) 0.7 10\S\3/uL 0.0-1.1 EOSINOPH # (test code=EO#) 0.2 10\S\3/uL 0.0-0.7 BASOPHIL # (test code=BA#) 0.0 10\S\3/uL 0.0-0.3 IG # (test code=IG#) 0.01 10\S\3/uL 0.00-0.06 NRBC # (test code=NRBC#) 0.00 10\S\3/uL 0.00-0.01 NEUTROPH % (test code=NE%) 60.2 % 35.0-73.0 LYMPH % (test code=LY%) 27.5 % 20.0-55.0 MONO % (test code=MO%) 9.5 % 2.5-10.0 EOSINOPH % (test code=EO%) 2.4 % 0.0-5.0 BASOPHIL % (test code=BA%) 0.3 % 0.0-2.0 IG % (test code=IG%) 0.1 % 0.0-0.8 NRBC% (test code=NRBC%) 0.0 % 0.0-0.2 MANDIFF (test code=MDIFF) NO NO RBC MORPH (test code=RBCMOR) NORMAL GLUCOMETER GLUCOSE- LAB USE [id number] 21:05:00 Test Item Value Reference Range Comments GLUCOMETER (test code=GMG) 116 mg/dL 70-100 Meter ID: [id number]: [id number] ROBERT GOLDMAN GLUCOMETER GLUCOSE- LAB USE [id number] 16:42:00 Test Item Value Reference Range Comments GLUCOMETER (test code=GMG) 247 mg/dL 70-100 DAILY MAINTENANCEMeter ID: [id number]: [id number] PicatchaEZ GLUCOMETER GLUCOSE- LAB USE [id number] 13:21:00 Test Item Value Reference Range Comments GLUCOMETER (test code=GMG) 206 mg/dL 70-100 DAILY MAINTENANCEMeter ID: [id number]: 9086 JAYY NAVARRO U/S KIDNEY (RENAL)2017-07-03 12:24:18RENAL ULTRASOUNDLocation Code: J6XIXANSON HISTORY: arfCOMPARISON: None.COMMENT: Real-time sonographic images of the kidneys and bladder was performed.The kidneys are slightly increased echogenicity with mild cortical thinning at1.3 cm on the right and 1.1 cm on the left.The right kidney measures 8.5 x4.6 x 5.1cm. The left kidney measures 8.9 x 4.6x 4.7cm. Cortical thickness is normal on each side.The bladder is decompressed by catheter.IMPRESSION: Mildly atrophic kidneys with increased echogenicity consistent withrenal failure. No acute abnormality.U/S ART FLW DOPPLER STELLA LOW [id number] 11:52:11BILATERAL LOWER EXTREMITY ARTERIAL DOPPLER :Location code: [id number] HISTORY: Bilateral leg pain with peripheral vascular diseaseTECHNIQUE: Douglas scale, color, and duplex spectral waveform analysis sonographyof the arteries of the bilateral lower extremities was performed. No priorstudy is available for comparison.FINDINGS: The exam is limited secondary to noncompliant patient. Unable tovisualizethe popliteal arteries as the patient would not allow. There aretriphasic waveforms in the common superficial femoral arteries except formonophasic waveform in the distal right superficial femoral artery. Dampenedmonophasic waveforms are also seen in the right posterior tibial and anteriortibial artery. Very little flow could be obtained in the left posterior andanterior tibial arteries.The dorsalis pedis arteries could not be imaged secondary to bandages.Impression:1. Extremely limited examination with findings suggestive of trifurcation andsmall vessel disease bilaterally.CBC (INCLUDES AUTOMATED DIFFERENTIAL)2017-07-03 06:40:00 Test Item Value Reference Range Comments WBC (test code=WBC) 6.6 10\S\3/uL 4.5-11.0 RBC (test code=RBC) 3.23 10\S\6/uL 3.80-5.80 HGB (test code=HBG) 9.1 g/dL 12.0-15.5 HCT (test code=HCT) 28.1 % 35.0-44.0 MCV (test code=MCV) 87.0 fL 81.0-99.0 MCH (test code=MCH) 28.2 pg 27.0-31.0 MCHC (test code=MCHC) 32.4 g/dL 32.0-36.0 RDW (test code=RDW) 12.5 % 11.5-14.5 PLT (test code=PLT) 222 10\S\3/uL 130-400 MPV (test code=MPV) 10.5 fL 9.4-12.4 NEUTROP # (test code=NE#) 3.9 10\S\3/uL 1.6-8.0 LYMPH # (test code=LY#) 2.0 10\S\3/uL 1.1-3.5 MONOCYTE # (test code=MO#) 0.5 10\S\3/uL 0.0-1.1 EOSINOPH # (test code=EO#) 0.1 10\S\3/uL 0.0-0.7 BASOPHIL # (test code=BA#) 0.0 10\S\3/uL 0.0-0.3 IG # (test code=IG#) 0.02 10\S\3/uL 0.00-0.06 NRBC # (test code=NRBC#) 0.00 10\S\3/uL 0.00-0.01 NEUTROPH % (test code=NE%) 58.5 % 35.0-73.0 LYMPH % (test code=LY%) 31.0 % 20.0-55.0 MONO % (test code=MO%) 8.0 % 2.5-10.0 EOSINOPH % (test code=EO%) 1.7 % 0.0-5.0 BASOPHIL % (test code=BA%) 0.5 % 0.0-2.0 IG % (test code=IG%) 0.3 % 0.0-0.8 NRBC% (test code=NRBC%) 0.0 % 0.0-0.2 MANDIFF (test code=MDIFF) NO NO RBC MORPH (test code=RBCMOR) NORMAL COMPREHENSIVE METABOLIC [id number] 06:16:00 Test Item Value Reference Range Comments GLUCOSE (test code=06D) 115 mg/dL 75-100 SODIUM (test code=01A) 140 mmol/L 136-145 POTASSIUM (test code=01B) 3.5 mmol/L 3.6-5.1 CHLORIDE (test code=04A) 109 mmol/L 98-107 CO2 (test code=02A) 22 mmol/L 22-32 ANION GAP (test code=ANG) 12.5 mmol/L BUN (test code=05D) 65 mg/dL 7-18 CREATININE (test code=03E) 3.0 mg/dL 0.4-1.1 BUN/CREA (test code=BCR) 21 12-20 CALCIUM (test code=09D) 8.7 mg/dL 8.3-9.5 BILI TOTAL (test code=11A) 0.5 mg/dL 0.2-1.0 PROTEIN (test code=07D) 6.9 g/dL 6.4-8.2 ALBUMIN (test code=08D) 2.6 g/dL 3.5-4.8 GLOBULIN (test code=GLB) 4.3 g/dL 1.5-3.8 ALB/GLOB (test code=AGRR) 0.6 1.0-2.6 ALK PHOS (test code=35A) 77 IU/L 42-121 AST (test code=30A) 16 IU/L <=42 ALT (test code=31A) 8 IU/L <=78 GLUCOMETER GLUCOSE- LAB USE [id number] 05:30:00 Test Item Value Reference Range Comments GLUCOMETER (test code=GMG) 118 mg/dL 70-100 CLEANED METERMeter ID: [id number]: [id number] MARGE [address]SU GLUCOMETER GLUCOSE- LAB USE [id number] 22:27:00 Test Item Value Reference Range Comments GLUCOMETER (test code=GMG) 158 mg/dL 70-100 Meter ID: [id number]: 2907 MAR[address] GLUCOMETER GLUCOSE- LAB USE [id number] 21:35:00 Test Item Value Reference Range Comments GLUCOMETER (test code=GMG) 63 mg/dL 70-100 Meter ID: [id number]: 2907 [address] EOSINOPHIL SMEAR [id number] 19:44:00 Test Item Value Reference Range Comments EO URINE (test code=EOU) MODERATE /OIF NONE SEEN CREATININE RANDOM [id number] 19:30:00 Test Item Value Reference Range Comments CREErik DOE (test code=CREAR) 47.8 mg/dL NRR (test code=NRR) * NO REFRENCE RANGE AVAILABLE FOR RANDOM SPECIMEN* PROTEIN URINE [id number] 19:18:00 Test Item Value Reference Range Comments PROT NADER (test code=SC) 76 mg/dL NRR (test code=NRR) * NO REFRENCE RANGE AVAILABLE FOR RANDOM SPECIMEN* GLUCOMETER GLUCOSE- LAB USE [id number] 15:24:00 Test Item Value Reference Range Comments GLUCOMETER (test code=GMG) 148 mg/dL 70-100 CLEANED METERMeter ID: [id number]: 4787 ISAAC YU GLUCOMETER GLUCOSE- LAB USE [id number] 12:43:00 Test Item Value Reference Range Comments GLUCOMETER (test code=GMG) 184 mg/dL 70-100 Meter ID: [id number]: [id number] NICOL HERNADEZ CARDIAC [id number] 12:26:00 Test Item Value Reference Range Comments TROPONIN I (test code=A84) 0.098 ng/mL 0.000-0.045 CKMB (test code=A49) 5.0 ng/mL <=3.6 CPK (test code=32A) 58 IU/L 26-192 [id number] 12:23:00 Test Item Value Reference Range Comments Hb A1C % (test code=HBA) 8.8 % 4.2-6.3 URINALYSIS WITH [id number] 12:15:00 Test Item Value Reference Range Comments COLOR (test code=COLU) YELLOW YELLOW CLARITY (test code=CLA) SLT HAZY CLEAR GLUCOSE UR (test code=UA GLUCOSE) NEGATIVE NEGATIVE BILI UR (test code=BILE) NEGATIVE NEGATIVE KETONES UR (test code=GURDEEP) NEGATIVE NEGATIVE SP GRAVITY (test code=SPGR) 1.014 1.005-1.030 PH UR (test code=PH) 6.0 4.5-8.0 PROTEIN UR (test code=PU) TRACE NEGATIVE UROBIL UR (test code=UROQ) 0.2 EU/dL 0.2-1.0 NITRITE UR (test code=NITRITE) NEGATIVE NEGATIVE BLOOD UR (test code=UA BLOOD) TRACE NEGATIVE LEUK ES UR (test code=LEUK) 2+ NEGATIVE WBC UR (test code=UWBC) 20 /HPF 0-5 RBC UR (test code=URBC) 4 /HPF 0-2 EPITH UR (test code=UEPC) FEW /LPF FEW BACTERIA UR (test code=UBACT) MANY /HPF NONE CAST UR (test code=CAST) /LPF NONE CRYSTAL UR (test code=CRYU) / LPF NONE MUCUS UR (test code=MUC) / HPF NONE AMORPH UR (test code=ADRYAN) / HPF NONE TRICH UR (test code=UTRICH) /HPF NONE YEAST UR (test code=UY) FEW /HPF NONE SPERM UR (test code=USPERM) /HPF NONE CBC (INCLUDES AUTOMATED DIFFERENTIAL)2017-07-02 11:58:00 Test Item Value Reference Range Comments WBC (test code=WBC) 9.3 10\S\3/uL 4.5-11.0 RBC (test code=RBC) 3.76 10\S\6/uL 3.80-5.80 HGB (test code=HBG) 10.7 g/dL 12.0-15.5 HCT (test code=HCT) 32.3 % 35.0-44.0 MCV (test code=MCV) 85.9 fL 81.0-99.0 MCH (test code=MCH) 28.5 pg 27.0-31.0 MCHC (test code=MCHC) 33.1 g/dL 32.0-36.0 RDW (test code=RDW) 12.5 % 11.5-14.5 PLT (test code=PLT) 250 10\S\3/uL 130-400 MPV (test code=MPV) 10.4 fL 9.4-12.4 NEUTROP # (test code=NE#) 6.6 10\S\3/uL 1.6-8.0 LYMPH # (test code=LY#) 1.9 10\S\3/uL 1.1-3.5 MONOCYTE # (test code=MO#) 0.6 10\S\3/uL 0.0-1.1 EOSINOPH # (test code=EO#) 0.1 10\S\3/uL 0.0-0.7 BASOPHIL # (test code=BA#) 0.0 10\S\3/uL 0.0-0.3 IG # (test code=IG#) 0.04 10\S\3/uL 0.00-0.06 NRBC # (test code=NRBC#) 0.00 10\S\3/uL 0.00-0.01 NEUTROPH % (test code=NE%) 70.5 % 35.0-73.0 LYMPH % (test code=LY%) 20.8 % 20.0-55.0 MONO % (test code=MO%) 6.7 % 2.5-10.0 EOSINOPH % (test code=EO%) 1.2 % 0.0-5.0 BASOPHIL % (test code=BA%) 0.4 % 0.0-2.0 IG % (test code=IG%) 0.4 % 0.0-0.8 NRBC% (test code=NRBC%) 0.0 % 0.0-0.2 MANDIFF (test code=MDIFF) NO NO RBC MORPH (test code=RBCMOR) NORMAL CARDIAC [id number] 05:42:00 Test Item Value Reference Range Comments TROPONIN I (test code=A84) 0.105 ng/mL 0.000-0.045 CKMB (test code=A49) 4.2 ng/mL <=3.6 CPK (test code=32A) 47 IU/L 26-192 CBC with [id number] 05:10:00 Test Item Value Reference Range Comments WBC (test code=WBC) 7.7 K/cumm 4.4-10.5 RBC (test code=RBC) 3.12 M/cumm 3.75-5.20 Hemoglobin (test code=HGB) 9.0 gm/dL 12.2-14.8 Hematocrit (test code=HCT) 31.1 % 36.5-44.4 MCV (test code=MCV) 99.6 fL 80-100 MCH (test code=MCH) 28.8 pg 27.0-32.5 MCHC (test code=MCHC) 28.9 g/dL 32.0-37.5 RDW (test code=RDW) 13.7 % 11.5-14.5 Platelet Count (test code=PLTCT) 265 K/cumm 140-440 MPV (test code=MPV) 9.5 fL Diff Method (test code=DIFFM) Manual Neutrophil (test code=NEUT) 78.0 % 36-70 Lymphocyte (test code=LYMPH) 16.0 % 12-44 Monocyte (test code=MONO) 4.6 % 0-11 Eosinophil (test code=EOS) 0.9 % 0-7 Basophil (test code=BASO) 0.4 % 0-2 Neutro Abs (test code=ANEUT) 6.0 K/cumm 1.6-7.4 Lymph Abs (test code=ALYMPH) 1.2 K/cumm 0.5-4.6 [place] Abs (test code=AMONO) 0.4 K/cumm 0.0-1.2 Eos Abs (test code=AEOS) 0.07 K/cumm 0.00-0.74 Baso Abs (test code=ABASO) 0.0 K/cumm 0.00-0.21 RBC Morphology (test Slight Hypochromia code=RBCMRPH) Platelet Est (test code=PLTEST) Adequate Platelets on Smear Glycosylated [id number] 03:33:00 Test Item Value Reference Range Comments HBA1c (test code=HBA1C) 9.5 % 4.8-5.9 Comprehensive Metabolic [id number] 00:02:00 Test Item Value Reference Range Comments Sodium (test code=NA) 128 mmol/L 135-145 Potassium (test code=K) 4.9 mmol/L 3.5-5.1 Chloride (test code=CL) 92 mmol/L 98-105 Carbon Dioxide (test 21 mmol/L 22-29 code=CO2) Glucose (test code=GLU) 413 mg/dL 70-115 READ BACK LAB VALUESVERIFIED BY REPEAT TESTINGKimberlyn @1202am 05/14/2017 kms Blood Urea Nitrogen 66 mg/dL 8-23 (test code=BUN) Creatinine (test 2.9 mg/dL 0.5-0.9 code=CREAT) Calcium (test code=CA) 9.6 mg/dL 8.3-10.5 Prot Total (test 7.5 g/dL 6.4-8.3 code=TP) Albumin (test code=ALB) 3.4 g/dL 3.5-5.2 A/G Ratio (test 0.8 Ratio code=AGRATIO) Globulin (test 4.1 2.9-3.1 code=GLOB) Bili Total (test 0.2 mg/dL 0.1-0.9 code=TBIL) Alk Phos (test 69 U/L 35-104 code=APHOS) AST (test code=AST) 9 U/L 1-32 ALT (test code=ALT) <5 U/L 1-33 BUN/Creatinine Ratio 22.8 (test code=BCRATIO) Anion Gap (test 15 mmol/L 7-16 code=AGAP) Estimated GFR (test 17 mL/min/1.73m2 eGFR (estimated Glomerular code=GFR) Filtration Rate) is an estimated value,calculated from the patient's serum creatinine using the MDRD equation.It is NOT the patient's actual GFR. The eGFR provides a more clinicallyuseful measure of kidney disease than serum creatinine alone.This calculation takes sex and race into account, if the informationis provided. If the race is not provided, and the patient isAfrican-B[place], multiply by 1.212. If sex is not provided, and thepatient is female, multiply by 0.742. Results for patients <18 years ofage have not been validated by the MDRD study and should be interpretedwith caution.eGFR Result Interpretation:eGFR > or=60 is in the Normal RangeeGFR < 60 may mean kidney diseaseeGFR < 15 may mean kidney failureRanges recommended by the National Kidney Foundation,http://nkdep.nih. gov Lipid [id number] 00:02:00 Test Item Value Reference Range Comments Cholesterol (test 251 mg/dL 0-200 code=CHOL) Triglycerides (test 201 mg/dL 9-200 code=TRIG) HDL (test code=HDL) 44 mg/dL 50-60 Chol/HDL (test 5.7 Ratio 0.0-4.4 code=CHOLPHDL) LDL, Calculated (test 167 0-130 (NOTE)RISK OF HEART code=LDLC) DISEASEPublished by [place] Heart AssociationAnalyte Optimal Boderline Increased RiskCHOL <200 200-239 >240TRIG <150 150-199 >200HDL Male: >60 <40HDL Female: >60 <50LDL <100 130-159 >160LDL NEAR OPTIMAL IS 100-129 VLDL (test code=VLDL) 40 mg/dL 5-40 LDL/HDL (test code=LDLPHDL) 4
[2017-12-12] MEDS ORDERED: FAMOTIDINE 20 MG/2 ML VIAL IV ONE (11:14)
[2017-12-12] MEDS ORDERED: NA CHLORIDE 0.9% 1,000 ML ONE (11:14)
--- NOTE | 2017-12-12 11:19 | RAD REPORT ---
EXAM DESCRIPTION: RAD - Chest Single View - 12/12/2017 11:08 am CLINICAL HISTORY: Diabetes, abdominal pain COMPARISON: 08/26/2017 FINDINGS: Portable technique limits examination quality. Bilateral pulmonary opacities are noted likely representing pulmonary edema. The heart is mildly mode rately enlarged. Multi lead pacer/defibrillator device is present. No displaced fractures.Sternotomy wires present. IMPRESSION: Mild to moderate CHF/ volume overload pattern.
--- NOTE | 2017-12-12 11:32 | RAD REPORT ---
EXAM DESCRIPTION: CT - Abdomen Pelvis Wo Contrast - 12/12/2017 11:10 am CLINICAL HISTORY: Abdominal pain. Diarrhea COMPARISON: None TECHNIQUE: CT imaging of the abdomen and pelvis was performed without contrast. Solid organ, bowel a nd vascular assessment is limited due to lack of IV and oral contrast. All CT scans are performed using dose optimization technique as appropriate and may include automated exposure control or mA/KV adjustment according to patient size. FINDINGS: Small bilateral pleural effusions are present. Mild linear atelectasis is noted in both marquis ng bases. The liver demonstrates no focal mass or biliary dilatation mild free fluid along the right liver edge is seen. A demonstrates mild free fluid along the inferior margin.The pancreas, adrenal glands and k idneys are within normal limits. The bulb of the gastrostomy tube is along the tract between the stom ach in the skin. It is not within the stomach lumen. No bowel obstruction, free air, or abscess. Mild free fluid is seen in the pelvis. Aortoiliac atheros clerosis. The appendix is normal. Prominent degenerative changes present in both hips.Generalized anasarca pattern is seen. IMPRESSION: Small bilateral pleural effusions are present with mild free fluid in the abdomen and ge neralized anasarca pattern. Bulb of the feeding tube as detailed above is not within the stomach but rather in subcutaneous tissu es. Findings were discussed with Dr. Luna in emergency room 11:30 a.m. 12/12/2017 by telephone. A limited non-contrast examination was performed as detailed.
[2017-12-12] MEDS ORDERED: FUROSEMIDE 40 MG/4 ML VIAL ONE (11:56)
[2017-12-12] MEDS ORDERED: SILVER SULFADIAZINE 1% 25 GM TOP ONE (12:00)
[2017-12-12 12:03] LABS: Absolute Lymphocytes (CBC) 1.3 K/uL (0.7-4.9); Absolute Monocytes 1.5 K/uL (0.1-1.3); Absolute Neutrophil 12.2 K/uL (1.8-8.0); Basophils % 0.4 % (0-1.3); Eosinophils % 1.8 % (0-4.4); Hematocrit 23.1 % (36.0-45.0); Lymphocytes % 8.4 % (15.3-44.8); MCH 30.1 pg (27.0-35.0); MCV 89.6 fL (80-100); Monocytes % 9.6 % (3.3-12.3); RBC Red Blood Cell Count 2.58 M/uL (3.86-4.86)
[2017-12-12 12:21] LABS: Protime INR 0.98
[2017-12-12 12:24] LABS: Glucose Level 108 mg/dL (65-120); Lipase 55 U/L (22-51)
[2017-12-12 12:26] LABS: ALT/SGPT 12 IU/L (10-60); AST/SGOT 20 IU/L (10-42); Bilirubin Total 0.5 mg/dL (0.3-1.2); CKMB Creatine Kinase MB 3.9 ng/ml (0.3-4.0); Creatine Phosphokinase 24 IU/L (22-269); Protein, Total 6.2 g/dL (6.0-8.3)
[2017-12-12 12:29] LABS: Bicarbonate 17 mEq/L (21-31); Magnesium 1.3 mg/dL (1.8-2.5); Sodium Level 146 mEq/L (135-145)
[2017-12-12 12:30] LABS: Alkaline Phosphatase 125 IU/L (42-121); Bilirubin Direct 0.1 mg/dL (0-0.2)
[2017-12-12 12:44] LABS: BUN Blood Urea Nitrogen 102 mg/dL (6-20); Digoxin Level < 0.2 ng/ml (1.0-2.0)
[2017-12-12] MEDS ORDERED: ONDANSETRON 4 MG/2 ML VIAL IV PRN (12:44)
[2017-12-12] MEDS ORDERED: ACETAMINOPHEN 650MG/RECT SUPP PR PRN (12:44)
[2017-12-12 12:45] LABS: Potassium 2.4 mEq/L (3.6-5.0)
--- NOTE | 2017-12-12 13:08 | P.HP ---
Certification for Inpatient Patient admitted to: Inpatient With expected LOS: >2 Midnights Patient will require the following post-hospital care: Other Practitioner: I am a practitioner with admitting privileges, knowledge of patient current condition, hospital course, and medical plan of care. Services: Services provided to patient in accordance with Admission requirements found in Title 42 Section 412.3 of the Code of Federal Regulations Patient History Date of Service: 12/12/17 Primary Care Provider: Jaime SONI; Nephrology-Dr. Paiz Reason for admission: Abnormal lab History of Present Illness: 82-year-old Afro-[place] female presented emergency room after she was sent from the longterm due to abnormal lab. Apparently she had lab that showed a low potassium and elevated white count. There was also some concern for malnutrition. At bedside her daughter who has medical [id number] was present. The patient denies any significant chest pain, shortness of breath, fever or chills. The daughter reports that the patient has had some mild diarrhea. She also has a right foot ulcer that is been present for some time. Some seepage is noted. The daughter further reports that the patient was originally in the [facility] ER. At that time she is found to be in acute renal failure. She was then transferred to [facility]. From [facility] she went to [facility] a long-term acute care facility thereafter she went to [facility] and eventually to the longterm. During that time the daughter reports that the patient has had malnutrition. The patient now has a feeding tube. The patient has also developed some ulcers to the sacral region and to the right foot. Her major medical problems include CAD, hypertension, atrial fibrillation, diabetes, hyperlipidemia, anemia chronic disease, chronic renal disease, congestive heart failure, and chronic diarrhea. In the ER the patient was evaluated. Initial lab work shows a low potassium. Creatinine 2.37 with a GFR 24. BNP elevated at 3136. Lipase 55. Albumin low at 2.0. White count 15.3, hemoglobin 7.8. CT chest and abdomen showed bilateral pleural effusions. Edematous changes noted to the abdomen from anasarca. The bowl bowl of the feeding tube does not appear in the stomach. During this time the tube was pushed in by the ER physician. A recheck x-ray with Gastrografin showed that he was in place. Chest x-ray showed mild pulmonary edema. Due to the multiple changes on lab and presentation the patient was admitted for evaluation and treatment. I was asked to admit the patient. When I saw the patient the ER, she did not appear in any significant distress. Patient appears cachectic and malnourished. Allergies No Known Allergies Allergy (Verified 08/27/17 00:20) Home medications list reviewed: Yes Home Medications: Carvedilol [Coreg] 12.5 mg PO BID 10/22/16 Clopidogrel Bisulfate [Plavix*] 75 mg PO DAILY 10/22/16 Digoxin [Lanoxin] 0.125 mg PO DAILY 10/22/16 Furosemide [Lasix*] 40 mg PO BID 10/22/16 Nifedipine [Procardia Xl] 90 mg PO DAILY 10/22/16 Aspirin 1 tab PO DAILY 08/27/17 Metformin HCl [Glucophage*] 500 mg PO BID 08/27/17 Azithromycin Tab [Zithromax*] 250 mg PO DAILY #4 tab 08/28/17 Cefuroxime Axetil [Cefuroxime] 500 mg PO BID #10 tab 08/28/17 Collagenase [Santyl Ointment*] 1 appl TOP DAILY #1 tube 08/28/17 Valsartan 160 mg PO DAILY #30 tablet 08/28/17 - Past Medical/Surgical History Diabetic: Yes -: Atrial fibrillation, NO chronic anticoagulation -: CAD -: HTN -: DM Type 2 -: Anemia of Chronic disease -: Chronic Renal Disease -: PVD -: DM Foot ulcer -: Malnutrition -: Feeding tube -: Hx of Pacemaker/Defibrillator -: CHF -: AICD placement Psychosocial/ Personal History: jail placement - Family History Father -: Diabetes Mother -: Diabetes - Social History Smoking Status: Never smoker Alcohol use: No CD- Drugs: No Caffeine use: Yes Place of Residence: Assisted Review of Systems General: As per HPI Eyes: Unremarkable ENT: Unremarkable Respiratory: Unremarkable Cardiovascular: Unremarkable Gastrointestinal: Diarrhea, As per HPI Genitourinary: Unremarkable Musculoskeletal: Pedal edema, As per HPI Integumentary: As per HPI Neurological: Weakness, As per HPI Lymphatics: Unremarkable Physical Examination - Physical Exam General: Alert, In no apparent distress, Oriented x2, Cooperative, Cachectic, Other (Patient appears malnourished. Muscle atrophy noted to upper extremities and face.) HEENT: Atraumatic, Normocephalic, Other (Dry mucous membranes) Neck: Supple, No Thyromegaly Respiratory: Other (Clear anteriorly. Decreased breast sounds to the bases bilateral posteriorly.) Cardiovascular: Normal pulses, Regular rate/rhythm Gastrointestinal: Normal bowel sounds, Soft and benign, Non-distended, No tenderness, No masses, No rebound, No guarding, Other (Feeding tube in place), Ascites (Mild ascites noted large pannus noted.) Musculoskeletal: No tenderness, No warmth Integumentary: Diabetic ulcer (Ulcers noted to the right lateral foot and between the 4th and 5th digit. Mild exudate noted. Black eschar noted.) Neurological: Normal speech, Normal strength at 5/5 x4 extr, Normal tone, Other (Patient appears weak. Patient able to follow commands. Lower extremity edema noted to the lower extremities bilateral) - Studies Laboratory Data (last 24 hrs) 12/12/17 11:42: PT 11.6, INR 0.98, APTT 25.9 12/12/17 11:42: WBC 15.3 H D, Hgb 7.8 L*, Hct 23.1 L, Plt Count 317 12/12/17 11:42: B-Natriuretic Peptide 3136 H 12/12/17 11:42: Sodium 146 H, Potassium 2.4 L*, BUN 102 H, Creatinine 2.37 H, Glucose 108, Magnesium 1.3 L*, Total Bilirubin 0.5, AST 20, ALT 12, Alkaline Phosphatase 125 H, Lipase 55 H Assessment and Plan - Problems (Diagnosis) (1) Diabetes mellitus Current Visit: Yes Status: Chronic Plan: Will continue with Accu-Cheks and sliding scale. Will check A1c. Qualifiers: Diabetes mellitus type: type 2 Diabetes mellitus ferry terminal supervisor insulin use: without ferry terminal supervisor use Diabetes mellitus complication status: with other specified complication Qualified Code(s): E11.69 - Type 2 diabetes mellitus with other specified complication (2) History of automatic internal cardiac defibrillator (AICD) Current Visit: Yes Status: Chronic Plan: Overall stable. Will continue monitor closely. Will monitor cardiac enzymes. Cardiology consulted to further assess. (3) CHF (congestive heart failure) Current Visit: Yes Status: Acute Plan: Suspect acute on chronic systolic CHF. Chest x-ray shows pulmonary edema. CT scan shows by a lower pole effusions. Will continue with IV Lasix. Cardiology consulted. Await further recommendations. Will check echocardiogram. Will try to obtain records from [facility]. Qualifiers: Heart failure type: systolic Heart failure chronicity: acute on chronic Qualified Code(s): I50.23 - Acute on chronic systolic (congestive) heart failure (4) Atrial fibrillation Current Visit: Yes Status: Chronic Plan: Stable at this time. Will continue with rate control medication. Patient not on chronic anti coagulation therapy. Will continue with DVT prophylaxis. Qualifiers: Atrial fibrillation type: chronic Qualified Code(s): I48.2 - Chronic atrial fibrillation (5) Hypokalemia Current Visit: Yes Status: Acute Plan: Will replace potassium. Replacement protocol in place. (6) Anemia Current Visit: Yes Status: Acute Plan: Patient with anemia likely of chronic disease. Will monitor hemoglobin. If hemoglobin is below 7 then the patient will need transfusion. Qualifiers: Anemia type: due to chronic kidney disease Chronic kidney disease stage: stage 4 (severe) Qualified Code(s): N18.4 - Chronic kidney disease, stage 4 ( severe); D63.1 - Anemia in chronic kidney disease (7) DM foot ulcer Current Visit: Yes Status: Acute Plan: Diabetic foot ulcer noted to the right foot. Black eschar noted. Suspect osteomyelitis. Will try to order MRI of foot if pacemaker defibrillator is compatible. Otherwise will check x-ray. Will have surgery evaluate patient. Will continue with wound care. Patient has been started on vancomycin and Zosyn. Qualifiers: Diabetic foot ulcer location: other Diabetes mellitus type: type 2 Laterality: right (8) Osteomyelitis Current Visit: Yes Status: Suspected Plan: Continue as above. Await surgery evaluation. Will obtain blood cultures. Qualifiers: Osteomyelitis type: unspecified type Osteomyelitis location: foot Laterality: right Qualified Code(s): M86.9 - Osteomyelitis, unspecified (9) Feeding tube dysfunction Current Visit: Yes Status: Acute Plan: Feeding tube was not in place. This was adjusted. Repeat x-ray with Gastrografin shows this is in place. Qualifiers: Encounter type: initial encounter Qualified Code(s): T85.598A - Other mechanical complication of other gastrointestinal prosthetic devices, implants and grafts, initial encounter (10) Acute kidney injury superimposed on CKD Onset Date: 08/27/17 Current Visit: No Status: Acute Plan: Patient with acute on chronic renal disease. Will consult Nephrology. (11) CAD (coronary artery disease) Onset Date: 08/27/17 Current Visit: No Status: Chronic Plan: Will monitor cardiac enzymes. Will check echocardiogram. Cardiology consulted. Qualifiers: (12) Dementia Onset Date: 08/27/17 Current Visit: No Status: Suspected Plan: Patient may have underlying dementia. Will need to investigate this. Will obtain records from [facility]. Qualifiers: (13) Hypertension Onset Date: 08/27/17 Current Visit: No Status: Chronic Plan: Will continue with blood pressure medication. Will hold blood pressure medication if less than 120 systolic. Qualifiers: Hypertension type: essential hypertension Qualified Code(s): I10 - Essential (primary) hypertension (14) Hypomagnesemia Current Visit: Yes Status: Acute Plan: Will monitor and replace appropriately. Replacement protocol in place. (15) Chronic kidney disease (CKD) Current Visit: No Status: Acute Plan: Nephrology consulted. Will monitor closely. Await further recommendation. Qualifiers: Chronic kidney disease stage: stage 4 (severe) Qualified Code(s): N18.4 - Chronic kidney disease, stage 4 (severe) (16) Malnutrition Current Visit: Yes Status: Chronic Plan: Will have dietary assess her malnutrition. Will check to see if the patient can swallow. If so will start diet. Will also check to see what the patient is getting at the longterm through the PEG tube. Qualifiers: Malnutrition type: protein-calorie malnutrition Protein-calorie malnutrition severity: severe Qualified Code(s): E43 - Unspecified severe protein-calorie malnutrition (17) Pleural effusion Current Visit: Yes Status: Acute Plan: Likely from CHF. Will continue with Lasix. (18) Anasarca Current Visit: Yes Status: Chronic Plan: Will continue with diuretics. (19) UTI (urinary tract infection) Current Visit: Yes Status: Suspected Plan: UTI also suspected. Urine and blood cultures obtained. Patient on IV antibiotic therapy. Qualifiers: Urinary tract infection type: site unspecified (20) Hypernatremia Current Visit: Yes Status: Acute Plan: Likely from malnutrition and dehydration. Will discuss with nephrology. Patient may require D5W. Discharge Plan: Assisted Plan to discharge in: Greater than 2 days - Advance Directives Does patient have a Living Will: No Does patient have a Durable POA for Healthcare: No - Code Status/Comfort Care Code Status Assessed: Yes (addressed with MPOA) Time Spent Managing Pts Care (In Minutes): 55
--- NOTE | 2017-12-12 13:10 | RAD REPORT ---
EXAM DESCRIPTION: RAD - ENTEROSTOMY TUBE CHECK W/CONTR - 12/12/2017 12:54 pm CLINICAL HISTORY: Peg tube verification. COMPARISON: None. FINDINGS: Contrast was infused into the PEG tube. The contrast is seen in the stomach and duodenum. No extravasation of contrast into the peritoneal cavity seen.
--- NOTE | 2017-12-12 13:13 | EDPHYS ---
Physician Documentation [facility] Name: Karissa Frias Age: 82 yrs Sex: Female : 1935 Arrival Date: 12/12/2017 Time: 10:11 Bed 7 Private MD: ED Physician Skinny Luna HPI: 12/12 10:47 This 82 yrs old Black Female presents to ER via EMS with complaints of Abdominal Pain, katerina Abnormal Lab Results. 10:47 The patient presents with abdominal pain abdominal distention in the upper abdomen, in katerina the lower abdomen. Onset: The symptoms/episode began/occurred 2 day(s) ago. from [place] , abnormal labs. Onset: The symptoms/episode began/occurred 2 day(s) ago. The symptoms radiate to. Associated signs and symptoms: none. Modifying factors: The symptoms are alleviated by nothing, the symptoms are aggravated by nothing. Severity of pain: At its worst the pain was mild moderate in the emergency department the pain is unchanged. Severity of symptoms: At their worst the symptoms were mild moderate in the emergency department the symptoms are unchanged. Historical: - Allergies: 10:17 No Known Allergies; hb - Home Meds: 10:17 aspirin 81 mg Oral TbEC 1 tab once daily [Active]; carvedilol 12.5 mg Oral tab 1 tab 2 hb times per day [Active]; digoxin 125 mcg Oral tab 1 tab once daily [Active]; furosemide 40 mg Oral tab 1 tab 2 times per day [Active]; lisinopril 5 mg Oral tab 1 tab once daily [Active]; metformin 500 mg Oral tab 1 tab 2 times per day [Active]; nifedipine 90 mg Oral TbER 1 tab once daily [Active]; Plavix 75 mg Oral tab 1 tab once daily [Active]; - PMHx: 10:17 Anemia; Diabetes - NIDDM; High Cholesterol; Atrial Fib; Hypertension; CAD; hb - PSHx: 10:17 pacer/defib; hb - Immunization history:: Adult Immunizations up to date. - Social history:: Smoking status: Patient/guardian denies using tobacco. - Family history:: not pertinent. ROS: 10:47 Constitutional: Negative for fever, chills, and weight loss, Eyes: Negative for injury, katerina pain, redness, and discharge, ENT: Negative for injury, pain, and discharge, Neck: Negative for injury, pain, and swelling, Cardiovascular: Negative for chest pain, palpitations, and edema, Respiratory: Negative for shortness of breath, cough, wheezing, and pleuritic chest pain, Back: Negative for injury and pain, : Negative for injury, bleeding, discharge, and swelling, Skin: Negative for injury, rash, and discoloration, Psych: Negative for depression, anxiety, suicide ideation, homicidal ideation, and hallucinations, Allergy/Immunology: Negative for hives, rash, and allergies, Endocrine: Negative for neck swelling, polydipsia, polyuria, polyphagia, and marked weight changes, Hematologic/Lymphatic: Negative for swollen nodes, abnormal bleeding, and unusual bruising. 10:47 Abdomen/GI: Positive for abdominal pain, of the right upper quadrant, left upper quadrant, right lower quadrant and left lower quadrant. 10:47 MS/extremity: Positive for pain, swelling, tenderness, of the right foot and left foot. 10:47 Neuro: Positive for weakness. Exam: 10:47 Constitutional: This is a well developed, well nourished patient who is awake, alert, katerina and in no acute distress. Head/Face: Normocephalic, atraumatic. Eyes: Pupils equal round and reactive to light, extra-ocular motions intact. Lids and lashes normal. Conjunctiva and sclera are non-icteric and not injected. Cornea within normal limits. Periorbital areas with no swelling, redness, or edema. ENT: Nares patent. No nasal discharge, no septal abnormalities noted. Tympanic membranes are normal and external auditory canals are clear. Oropharynx with no redness, swelling, or masses, exudates, or evidence of obstruction, uvula midline. Mucous membranes moist. Neck: Trachea midline, no thyromegaly or masses palpated, and no cervical lymphadenopathy. Supple, full range of motion without nuchal rigidity, or vertebral point tenderness. No Meningismus. Chest/axilla: Normal chest wall appearance and motion. Nontender with no deformity. No lesions are appreciated. Cardiovascular: Regular rate and rhythm with a normal S1 and S2. No gallops, murmurs, or rubs. Normal PMI, no JVD. No pulse deficits. Respiratory: Lungs have equal breath sounds bilaterally, clear to auscultation and percussion. No rales, rhonchi or wheezes noted. No increased work of breathing, no retractions or nasal flaring. Back: No spinal tenderness. No costovertebral tenderness. Full range of motion. Female : Normal external genitalia. Neuro: Awake and alert, GCS 15, oriented to person, place, time, and situation. Cranial nerves II-XII grossly intact. Motor strength 5/5 in all extremities. Sensory grossly intact. Cerebellar exam normal. Normal gait. Psych: Awake, alert, with orientation to person, place and time. Behavior, mood, and affect are within normal limits. 10:47 Abdomen/GI: Inspection: abdomen appears normal, Bowel sounds: hyperactive, Palpation: mild abdominal tenderness, in the right upper quadrant, left upper quadrant, right lower quadrant and left lower quadrant, Liver: no appreciated palpable abnormalities, Hernia: not appreciated. Vital Signs: 10:11 BP 141 / 64; Pulse 93; Resp 18; Temp 98; Pulse Ox 98% on R/A; Pain 7/10; hb 11:20 BP 136 / 66; Pulse 86; Resp 17; Pulse Ox 100% on R/A; hb 16:00 BP 132 / 60; Pulse 85 MON; Resp 18 S; Temp 98.0; Pulse Ox 98% on R/A; Pain 0/10; sg MDM: 10:12 Patient medically screened. [facility] 10:49 Data reviewed: vital signs, nurses notes, lab test result(s), EKG, radiologic studies, [facility] CT scan, plain films. 12/12 10:46 Order name: Basic Metabolic Panel; Complete Time: 13:03 [facility] 12/12 10:46 Order name: BNP; Complete Time: 12:27 [facility] 12/12 10:46 Order name: CBC with Diff; Complete Time: 12:26 [facility] 12/12 10:46 Order name: Ckmb; Complete Time: 13:03 [facility] 12/12 10:46 Order name: CPK; Complete Time: 13:03 [facility] 12/12 10:46 Order name: LFT's; Complete Time: 13:03 [facility] 12/12 10:46 Order name: Magnesium; Complete Time: 13:03 [facility] 12/12 10:46 Order name: PT-INR; Complete Time: 12:26 [facility] 12/12 10:46 Order name: Ptt, Activated; Complete Time: 12:26 [facility] 12/12 10:46 Order name: Troponin (emerg Dept Use Only); Complete Time: 14:11 [facility] 12/12 10:46 Order name: Lipase; Complete Time: 13:03 [facility] 12/12 10:46 Order name: Urine Culture [facility] 12/12 10:46 Order name: Digoxin; Complete Time: 13:03 [facility] 12/12 12:42 Order name: Blood Culture Adult (2) [facility] 12/12 10:46 Order name: XRAY Chest (1 view); Complete Time: 11:48 [facility] 12/12 10:46 Order name: CT Abd/Pelvis - Without Cont: no iv and no oral; Complete Time: 11:48 [facility] 12/12 12:44 Order name: LAB Add On 12/12 12:49 Order name: Procalcitonin; Complete Time: 14:11 [facility] 12/12 12:49 Order name: Iron Level [facility] 12/12 12:49 Order name: Retic Count [facility] 12/12 12:49 Order name: B12 [facility] 12/12 12:49 Order name: Folic Acid,Serum (folate) [facility] 12/12 12:49 Order name: TIBC [facility] 12/12 13:02 Order name: Hematocrit [facility] 12/12 13:02 Order name: Hemoglobin [facility] 12/12 13:02 Order name: Blood Culture [facility] 12/12 13:13 Order name: Urine Dipstick--Ancillary (enter results) 12/12 14:11 Order name: ABG [facility] 12/12 14:50 Order name: ABG Arterial Blood Gas; Complete Time: 15:07 [facility] 12/12 10:46 Order name: EKG; Complete Time: 10:47 [facility] 12/12 10:46 Order name: Cardiac monitoring; Complete Time: 10:51 [facility] 12/12 10:46 Order name: EKG - Nurse/Tech; Complete Time: 12:05 [facility] 12/12 10:46 Order name: IV Saline Lock; Complete Time: 10:51 [facility] 12/12 10:46 Order name: Labs collected and sent; Complete Time: 10:51 [facility] 12/12 10:46 Order name: O2 Per Protocol; Complete Time: 10:51 [facility] 12/12 10:46 Order name: O2 Sat Monitoring; Complete Time: 10:51 [facility] 12/12 10:46 Order name: Urine Dipstick-Ancillary (obtain specimen); Complete Time: 13:23 [facility] 12/12 10:46 Order name: Zarco; Complete Time: 12:06 katerina 12/12 12:04 Order name: ENTEROSTOMY TUBE CHECK W/CONTR; Complete Time: 14:11 [facility] 12/12 13:02 Order name: CONS Pharmacy Consult [facility] 12/12 13:02 Order name: CONS [facility] Cons [facility] 12/12 13:02 Order name: CONS Physician Consult [facility] 12/12 13:02 Order name: CONS Physician Consult [facility] 12/12 13:02 Order name: NPO [facility] 12/12 13:02 Order name: Foot Right Wo Cont [facility] 12/12 13:03 Order name: Dietitian Consult [facility] 12/12 13:03 Order name: Echo with Doppler ED[facility] Administered Medications: 11:52 Not Given (Duplicate Order): NS 0.9% 1000 ml IV at 125 ml/hr continuous katerina 12:05 Drug: Pepcid 20 mg Route: IVP; Site: right antecubital; sg 13:00 Follow up: Response: No adverse reaction sg 12:05 Drug: Lasix 40 mg Route: IVP; Site: right antecubital; sg 13:00 Follow up: Urine output 300 ml; Response: No adverse reaction 12:06 Drug: NS 0.9% 1000 ml Route: IV; Rate: 75 ml/hr; Site: right antecubital; sg 12:09 Drug: Silvadene Cream 1 % 1 application Route: Topical; Site: affected area; sg 12/13 13:00 Follow up: Response: No adverse reaction 12/12 13:20 Drug: Zosyn 3.375 grams Route: IVPB; Infused Over: 60 mins; Site: right antecubital; sg 14:00 Follow up: Response: No adverse reaction; IV Status: Completed infusion sg 14:21 Drug: vancoMYCIN 1 grams Route: IVPB; Infused Over: 2 hrs; Site: right antecubital; sg 16:00 Follow up: IV Status: Infusion continued upon admission sg 15:00 Drug: Magnesium Sulfate 1 grams Route: IVPB; Infused Over: 1 hrs; Site: right sg antecubital; 16:00 Follow up: Response: No adverse reaction; IV Status: Completed infusion sg 16:00 Drug: Potassium Chloride 20 mEq Route: IV; Rate: per protocol; Site: right upper arm; sg 16:15 Follow up: Response: No adverse reaction; IV Status: Infusion continued upon admission sg Disposition: 12/12/17 13:12 Hospitalization ordered by Christos Mccall for Inpatient Admission. Preliminary diagnosis are Type 2 diabetes mellitus, Unspecified combined systolic (congestive) and diastolic (congestive) heart failure, Hypomagnesemia, Hypokalemia, Acute kidney failure, Cystitis, Gastrostomy complications - malpositioned,adjusted, Anemia, unspecified, Elevated white blood cell count. - Bed requested for Telemetry/MedSurg (Inpatient). - Status is Inpatient Admission. sg - Condition is Guarded. - Problem is new. - Symptoms are unchanged. UTI on Admission? Yes Signatures: Dispatcher [facility] Rupinder Doran RN RN dw Gay, Steven, RN RN sg Anderson, Corey, MD MD cha Baxter, Heather RN RN Corrections: (The following items were deleted from the chart) 12:04 11:52 Abdomen 1 View (KUB)+RAD.RAD.BRZ ordered. [facility] 12:50 12:50 FERRITIN+C.LAB.BRZ ordered. [facility] 15:17 13:12 Hospitalization Ordered by Christos Mccall DO for Inpatient Admission. Preliminary dw diagnosis is Type 2 diabetes mellitus; Unspecified combined systolic (congestive) and diastolic (congestive) heart failure; Hypomagnesemia; Hypokalemia; Acute kidney failure; Cystitis; Gastrostomy complications - malpositioned,adjusted; Anemia, unspecified; Elevated white blood cell count. Bed requested for Telemetry/MedSurg (Inpatient). Status is Inpatient Admission. Condition is Guarded. Problem is new. Symptoms are unchanged. UTI on Admission? Yes. [facility] 16:24 15:17 12/12/2017 13:12 Hospitalization Ordered by Christos Mccall DO for Inpatient sg Admission. Preliminary diagnosis is Type 2 diabetes mellitus; Unspecified combined systolic (congestive) and diastolic (congestive) heart failure; Hypomagnesemia; Hypokalemia; Acute kidney failure; Cystitis; Gastrostomy complications - malpositioned,adjusted; Anemia, unspecified; Elevated white blood cell count. Bed requested for Telemetry/MedSurg (Inpatient). Status is Inpatient Admission. Condition is Guarded. Problem is new. Symptoms are unchanged. UTI on Admission? Yes. dw
--- NOTE | 2017-12-12 13:13 | ER ---
Nurse's Notes [facility] Name: Karissa Frias Age: 82 yrs Sex: Female : 1935 Arrival Date: 12/12/2017 Time: 10:11 Bed 7 Private MD: Diagnosis: Type 2 diabetes mellitus;Unspecified combined systolic (congestive) and diastolic (congestive) heart failure;Hypomagnesemia;Hypokalemia;Acute kidney failure;Cystitis;Gastrostomy complications-malpositioned,adjusted;Anemia, unspecified;Elevated white blood cell count Presentation: 12/12 10:12 Presenting complaint: EMS states: Diarrhea x 4 days, abdominal pain x 1 day. Lab hb reported K 2.5, WBC 13k, albumin 1.8. AOx1 at baseline, BGL 164, BP 120/72. Hx renal failure, anemia, CHF, DM. Transition of care: patient was not received from another setting of care. Onset of symptoms is unknown. Initial Sepsis Screen: Does the patient meet any 2 criteria? No. Patient's initial sepsis screen is negative. Does the patient have a suspected source of infection? No. Patient's initial sepsis screen is negative. 10:12 Method Of Arrival: EMS: [facility] hb 10:12 Acuity: LAURO 2 hb 10:20 Care prior to arrival: None. sg Triage Assessment: 10:20 General: Appears in no apparent distress. uncomfortable, ill, slender, well groomed, sg well developed, well nourished, Behavior is agitated, anxious, fussy. Historical: - Allergies: 10:17 No Known Allergies; hb - Home Meds: 10:17 aspirin 81 mg Oral TbEC 1 tab once daily [Active]; carvedilol 12.5 mg Oral tab 1 tab 2 hb times per day [Active]; digoxin 125 mcg Oral tab 1 tab once daily [Active]; furosemide 40 mg Oral tab 1 tab 2 times per day [Active]; lisinopril 5 mg Oral tab 1 tab once daily [Active]; metformin 500 mg Oral tab 1 tab 2 times per day [Active]; nifedipine 90 mg Oral TbER 1 tab once daily [Active]; Plavix 75 mg Oral tab 1 tab once daily [Active]; - PMHx: 10:17 Anemia; Diabetes - NIDDM; High Cholesterol; Atrial Fib; Hypertension; CAD; hb - PSHx: 10:17 pacer/defib; hb - Immunization history:: Adult Immunizations up to date. - Social history:: Smoking status: Patient/guardian denies using tobacco. - Family history:: not pertinent. Screenin:35 Abuse screen: Denies threats or abuse. Denies injuries from another. Nutritional hb screening: No deficits noted. Tuberculosis screening: No symptoms or risk factors identified. Fall Risk Total Turner Fall Scale indicates High Risk Score (45 or more points). Fall prevention measures have been instituted. Side Rails Up X 2 Frequent Obs/Assessments Occuring Family Present and informed to notify staff if the need to leave the bedside As available patient and family educated on Fall Prevention Program and Strategies. Assessment: 10:20 Reassessment: Patient appears in no apparent distress at this time. Patient and/or sg family updated on plan of care and expected duration. Pain level reassessed. Patient is alert, oriented x 3, equal unlabored respirations, skin warm/dry/pink. General: Behavior is agitated, anxious, fussy. Pain: Complains of pain in buttocks, left lower quadrant, right foot and left foot. Neuro: Level of Consciousness is awake, confused, Oriented to person, place, pt verbalized that she is " not at home." but not able to identify where she is at this time. Moves all extremities. Speech is normal, Facial symmetry appears normal. Cardiovascular: Heart tones S1 S2 present Capillary refill is brisk in bilateral fingers Patient's skin is warm and dry. Chest pain is denied. Respiratory: Airway is patent Respiratory effort is even, unlabored, Respiratory pattern is regular, symmetrical, Breath sounds are clear. GI: Abdomen is round non-distended, Bowel sounds present X 4 quads. Abd is soft X 4 quads Abdomen is tender to palpation in right lower quadrant and left lower quadrant. : Reports incontinence. EENT: No deficits noted. Derm: Skin is fragile, is thin, Skin is dry, Skin is normal, Skin temperature is warm Decubitus located on right sacrum thigh, Bilateral Heels approximately 2.6 cm to 7.5 cm is stage II has erythematous edges has macerated edges. Musculoskeletal: No deficits noted. 10:32 Reassessment: pt daughter at bedside. sg 11:58 Reassessment: at bedside for replacement of the pt G-Tube at this time. sg 12:30 Reassessment: Xray at bedside at this time. sg 13:40 Reassessment: Patient appears in no apparent distress at this time. Wound care team at bedside for dressings at this time. Reassessment: Wound care contaceted per , spoke with jeff Hairston that photographs of the wounds were taken, notified. 14:40 Reassessment: attempting to find additional IV access. sg 14:48 Reassessment: ECHO at bedside at this time. sg 14:55 Reassessment: at bedside at this time, evaluating pt. sg 15:06 Reassessment: aviation technician aircraft at bedside to take pt to MRI, informed tech pt has a pacemaker sg Defib, MRI stated understanding, pt not to MRI at this time. 15:22 Reassessment: Patient appears in no apparent distress at this time. attempt to find sg additional IV access at this time prior to admission to 2nd floor, pt stated understanding. Vital Signs: 10:11 BP 141 / 64; Pulse 93; Resp 18; Temp 98; Pulse Ox 98% on R/A; Pain 7/10; hb 11:20 BP 136 / 66; Pulse 86; Resp 17; Pulse Ox 100% on R/A; hb 16:00 BP 132 / 60; Pulse 85 MON; Resp 18 S; Temp 98.0; Pulse Ox 98% on R/A; Pain 0/10; sg ED Course: 10:11 Patient arrived in ED. hb 10:12 Skinny Luna MD is Attending Physician. katerina 10:15 Triage completed. hb 10:20 Patient has correct armband on for positive identification. Bed in low position. Call sg light in reach. Side rails up X2. monitoring and evaluation advisor on. Pulse ox on. NIBP on. Warm blanket given. Head of bed elevated. 10:30 Jaspal Interiano, RN is Primary Nurse. sg 10:30 Initial lab(s) drawn, by me, sent to lab. T\\T\\S collected, blood band applied to patient. sg Inserted saline lock: 20 gauge in right antecubital area, using aseptic technique. Blood collected. 10:32 Arm band placed on. sg 11:06 X-ray completed. Portable x-ray completed in exam room. Patient tolerated procedure sw well. 11:08 XRAY Chest (1 view) In Process Unspecified. EDMS 11:09 CT completed. Patient tolerated procedure well. Patient moved to CT via stretcher. vr Patient moved back from CT. 11:10 CT Abd/Pelvis - Without Cont: no iv and no oral In Process Unspecified. EDMS 11:18 EKG done, by technical support specialist. reviewed by Skinny Luna MD. dt2 12:50 X-ray completed. Portable x-ray completed in exam room. Patient tolerated procedure sw well. 12:50 Zarco cath inserted, using sterile technique, 16 Fr., by wa, balloon inflated, to hb gravity drainage, urine specimen collected. 12:55 ENTEROSTOMY TUBE CHECK W/CONTR In Process Unspecified. EDMS 13:10 Christos Mccall DO is Hospitalizing Provider. katerina 15:23 No provider procedures requiring assistance completed. sg 15:25 Echocardiogram with doppler, completed by Resource Specialist Teacher. dt2 16:00 Patient admitted, IV remains in place. hb Administered Medications: 11:52 Not Given (Duplicate Order): NS 0.9% 1000 ml IV at 125 ml/hr continuous katerina 12:05 Drug: Pepcid 20 mg Route: IVP; Site: right antecubital; sg 13:00 Follow up: Response: No adverse reaction sg 12:05 Drug: Lasix 40 mg Route: IVP; Site: right antecubital; sg 13:00 Follow up: Urine output 300 ml; Response: No adverse reaction sg 12:06 Drug: NS 0.9% 1000 ml Route: IV; Rate: 75 ml/hr; Site: right antecubital; sg 12:09 Drug: Silvadene Cream 1 % 1 application Route: Topical; Site: affected area; sg 12/13 13:00 Follow up: Response: No adverse reaction sg 12/12 13:20 Drug: Zosyn 3.375 grams Route: IVPB; Infused Over: 60 mins; Site: right antecubital; sg 14:00 Follow up: Response: No adverse reaction; IV Status: Completed infusion sg 14:21 Drug: vancoMYCIN 1 grams Route: IVPB; Infused Over: 2 hrs; Site: right antecubital; sg 16:00 Follow up: IV Status: Infusion continued upon admission sg 15:00 Drug: Magnesium Sulfate 1 grams Route: IVPB; Infused Over: 1 hrs; Site: right sg antecubital; 16:00 Follow up: Response: No adverse reaction; IV Status: Completed infusion sg 16:00 Drug: Potassium Chloride 20 mEq Route: IV; Rate: per protocol; Site: right upper arm; sg 16:15 Follow up: Response: No adverse reaction; IV Status: Infusion continued upon admission sg Output: 13:00 Urine: 300ml; Total: 300ml. sg Outcome: 13:12 Decision to Hospitalize by Provider. katerina 16:20 Admitted to Med/surg accompanied by tech, via stretcher, with oxygen, with chart. hb 16:20 Condition: stable 16:20 Instructed on the need for admit, Demonstrated understanding of instructions. 16:24 Patient left the ED. Signatures: Dispatcher [employer] EDJaspal Burkett, RN RN Skinny Schultz MD MD cha Davis, Victoria vr Warren, Shannon sw Baxter, Heather, RN RN Laurita Batista dt2
[2017-12-12] MEDS ORDERED: VANCOMYCIN/NS 1 gm 1 GM/250 ML BAG ONE (13:35)
[2017-12-12] MEDS ORDERED: MAGNESIUM SULFATE 1 gm IVPB 1 GM/100 ML BAG IV ONE (13:35)
[2017-12-12] MEDS ORDERED: KCL 20 MEQ/100 mL IVPB 20 MEQ/100 ML BAG IV ONE (13:35)
[2017-12-12] MEDS ORDERED: PIPER/TAZO/NS 3.375gm 3.375 GM/100 ML BAG ONE (13:35)
[2017-12-12] MEDS ORDERED: GLUCAGON 1 MG/VIAL IM PRN ×2 (13:44→17:37)
[2017-12-12] MEDS ORDERED: D50W 25 GM/50 ML SYRINGE IV PRN ×2 (13:44→17:37)
[2017-12-12 14:35] LABS: Arterial Blood Carboxyhemoglob 1.5 % (0-1.5); Blood Gas Oxyhemoglobin 93.3 % (94-97); Blood O2 Saturation 95.7 % (92-98.5)
[2017-12-12] MEDS: INSULIN -REGULAR HUMAN 50 UNIT/0.5 ML ML SQ SCH ×2 (16:30→21:00)
[2017-12-12] MEDS ORDERED: FUROSEMIDE 20 MG/ 2ML VIAL IV SCH (17:00)
[2017-12-12] MEDS ORDERED: ENOXAPARIN 40 MG/0.4 ML SQ SCH (17:00)
[2017-12-12] MEDS ORDERED: TRAMADOL HCL 50 MG TAB PO PRN (17:06)
[2017-12-12 17:14] LABS: Hematocrit 26.5 % (36.0-45.0)
[2017-12-12] MEDS: HYDROCODONE/APAP 7.5/325 MG TAB PO PRN (17:24)
--- NOTE | 2017-12-12 17:28 | P.CNS ---
Date of Consult: 12/12/17 Reason for Consult: CARMEN/ CKD Requesting Physician: Christos Mccall Primary Care Provider: Jaime SONI; Nephrology-Dr. Paiz Chief Complaint: Abnormal lab History of Present Illness: 82-year-old Afro-[place] female presented emergency room after she was [facility] the [facility] due to abnormal lab. Apparently she had lab that showed a low potassium and elevated white count. There was also some concern for malnutrition. At bedside her daughter who has medical [id number] was present. The patient denies any significant chest pain, shortness of breath, fever or chills. The daughter reports that the patient has had some mild diarrhea. She also has a right foot ulcer that is been present for some time. Some seepage is noted. The daughter further reports that the patient was originally in the [facility] ER. At that time she is found to be in acute renal failure. She was then transferred to [facility]. From [facility] she went to [facility] long-term acute care facility thereafter she went to [facility] and eventually to the [facility]. During that time the daughter reports that the patient has had malnutrition. The patient now has a feeding tube. The patient has also developed some ulcers to the sacral region and to the right foot. Her major medical problems include CAD, hypertension, atrial fibrillation, diabetes, hyperlipidemia, anemia chronic disease, chronic renal disease, congestive heart failure, and chronic diarrhea. 10:47 This 82 yrs old Black Female presents to ER via EMS with complaints of Abdominal Pain, katerina Abnormal Lab Results. 10:47 The patient presents with abdominal pain abdominal distention in the upper abdomen, in katerina the lower abdomen. Onset: The symptoms/episode began/occurred 2 day(s) ago. from in , abnormal labs. Onset: The symptoms/episode began/occurred 2 day(s) ago. The symptoms radiate to. Associated signs and symptoms: none. Modifying factors: The symptoms are alleviated by nothing, the symptoms are aggravated by nothing. Severity of pain: At its worst the pain was mild moderate in the emergency department the pain is unchanged. Severity of symptoms: At their worst the symptoms were mild moderate in the emergency department the symptoms are unchanged. Limited IH/ ROS due to dementia. Allergies No Known Allergies Allergy (Verified 08/27/17 00:20) Home medications list reviewed: Yes Home Medications: Carvedilol [Coreg] 12.5 mg PO BID 10/22/16 Clopidogrel Bisulfate [Plavix*] 75 mg PO DAILY 10/22/16 Digoxin [Lanoxin] 0.125 mg PO DAILY 10/22/16 Furosemide [Lasix*] 40 mg PO BID 10/22/16 Nifedipine [Procardia Xl] 90 mg PO DAILY 10/22/16 Aspirin 1 tab PO DAILY 08/27/17 Metformin HCl [Glucophage*] 500 mg PO BID 08/27/17 Collagenase [Santyl Ointment*] 1 appl TOP DAILY #1 tube 08/28/17 Nepro Shake [Nepro] 0 ml FT SEECOM 12/13/17 - Past Medical/Surgical History Diabetic: Yes -: Atrial fibrillation, NO chronic anticoagulation -: CAD -: HTN -: DM Type 2 -: Anemia of Chronic disease -: Chronic Renal Disease -: PVD -: DM Foot ulcer -: Malnutrition -: Feeding tube -: Hx of Pacemaker/Defibrillator -: CHF -: AICD placement Psychosocial/ Personal History: assisted placement - Family History Father Medical History: Diabetes Mother Medical History: Diabetes - Social History Smoking Status: Unknown if ever smoked Alcohol use: No CD- Drugs: No Caffeine use: Yes Place of Residence: Shelter Review of Systems 10-point ROS is otherwise unremarkable General: Weakness, Malaise Gastrointestinal: Diarrhea Neurological: Weakness Physical Examination Temp Pulse Resp BP Pulse Ox 98.0 F 85 18 132/60 12/12/17 16:00 12/12/17 16:00 12/12/17 16:00 12/12/17 16:00 General: Alert, Cooperative, Cachectic HEENT: Atraumatic Neck: Supple Respiratory: Clear to auscultation bilaterally, Normal air movement Cardiovascular: No edema, Regular rate/rhythm Gastrointestinal: Hypoactive, Soft and benign Musculoskeletal: No clubbing, No warmth Integumentary: No rashes, No cyanosis Neurological: Normal speech Laboratory Data (last 24 hrs) 12/12/17 11:42: PT 11.6, INR 0.98, APTT 25.9 12/12/17 11:42: WBC 15.3 H D, Hgb 7.8 L*, Hct 23.1 L, Plt Count 317 12/12/17 11:42: B-Natriuretic Peptide 3136 H 05/10/18 11:42: Sodium 146 H, Potassium 2.4 L*, BUN 102 H, Creatinine 2.37 H, Glucose 108, Magnesium 1.3 L*, Total Bilirubin 0.5, AST 20, ALT 12, Alkaline Phosphatase 125 H, Lipase 55 H Imagings Data: EXAM DESCRIPTION: CT - Abdomen Pelvis Wo Contrast - 12/12/2017 11:10 am CLINICAL HISTORY: Abdominal pain. Diarrhea COMPARISON: None TECHNIQUE: CT imaging of the abdomen and pelvis was performed without contrast. Solid organ, bowel and vascular assessment is limited due to lack of IV and oral contrast. All CT scans are performed using dose optimization technique as appropriate and may include automated exposure control or mA/KV adjustment according to patient size. FINDINGS: Small bilateral pleural effusions are present. Mild linear atelectasis is noted in both lung bases. The liver demonstrates no focal mass or biliary dilatation mild free fluid along the right liver edge is seen. A demonstrates mild free fluid along the inferior margin.The pancreas, adrenal glands and kidneys are within normal limits. The bulb of the gastrostomy tube is along the tract between the stomach in the skin. It is not within the stomach lumen. No bowel obstruction, free air, or abscess. Mild free fluid is seen in the pelvis. Aortoiliac atherosclerosis. The appendix is normal. Prominent degenerative changes present in both hips.Generalized anasarca pattern is seen. IMPRESSION: Small bilateral pleural effusions are present with mild free fluid in the abdomen and generalized anasarca pattern. Bulb of the feeding tube as detailed above is not within the stomach but rather in subcutaneous tissues. Conclusions/Impression: A/ CARMEN likely due to hypovolemia. CKD IV. Acidosis. Hypernatremia/ Dehydration. Hypokalemia. 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 Systolic CHF, chronic. Anemia in chronic illness. Hypomagnesemia. Moderate protein malnutrition/ Cachexia. P/ Continue current POC and Medications. Change IVF to D5W with potassium. Give potassium. IV magnesium as needed. Transfuse PRBC as needed. No NSAIDs. AM labs. Daily weight. Thank you kindly for the consultation.
[2017-12-12] MEDS: PIPER/TAZO/NS 2.25gm 2.25 GM/50 ML BAG IVPB SCH (18:11)
--- NOTE | 2017-12-12 21:04 | CON ---
Date of Consultation: 12/12/2017 Reason: Wound, right foot, rule out osteo. History Of Present Illness: The patient is an 82-year-old female, who was brought to the emergency r oom from the alf after an abnormal lab showing hypokalemia and leukocytosis, and there was s ome concern for malnutrition. No chest pain. No shortness of breath. No fever or chills, per the d aughter, some diarrhea. She has had multiple ulcers on both heels and [facility] by Dr. Arteaga. She had recently been diagnosed with acute renal failure, was transf erred to [facility]. She went to [place], and after long term care administrator acute care was done, the patie nt was transferred to the local alf. The patient has developed some ulcers on the sacral re gion and both lower extremities. She has multiple medical problems. Review of Systems: Otherwise, unremarkable. Past Medical History: Significant for atrial fibrillation, the patient is not on any chronic anticoa gulation. Coronary artery disease, hypertension, type 2 diabetes, anemia, chronic renal disease, per ipheral vascular disease, foot ulcers, malnutrition. Past Surgical History: Pacemaker, defibrillator, feeding tube, AICD placement. Allergies: NO ALLERGIES. Social History: She does not smoke. Does not drink alcohol. Family History: Significant for diabetes. Physical Examination: Vital Signs: Reviewed. They are stable. The patient is afebrile. General: She is awake, but confused. Unable to respond to answer appropriate questions. Head and Neck: No masses. Chest: Clear. Heart: S1, S2. Abdomen: Soft. Mild tenderness. No rebound, rigidity, or guarding. Feeding tube in place. Extremities: Diminished dorsalis pedis and posterior tibial pulses. Diagnostic Data: I reviewed the pictures taken by our Wound Healing staff, and patient has bilateral heel decubitus, on the left appears to be healed, on the right may be partial thickness. Then she h as some ischemic changes on the lateral left foot and right foot, some eschar, black in nature, and i n between the fourth and fifth toe there might be bone exposed, has moderate amount of fibrin, the de tails of these are in the medical records, partial thickness, sacral decubitus. There is no surround ing, erythema, warmth, edema, or no purulent discharge. Laboratory Data: White count is 15.3, H and H is 7.8 and 23.1 with a left shift. INR is 0.98. Chem istry shows a potassium of 2.4 magnesium 1.3. Her albumin is 2. Troponin 1 is 0.1. Procalcitonin 0 .62. Assessment: An 82-year-old female with multiple medical problems with chronic renal disease with acu te exacerbation with hypokalemia, hypomagnesemia, sepsis. Etiology unclear at this time. Workup is still being done. Her CT of the abdomen does not show anything acute. Her feeding tube was not in t he stomach. It was repositioned and there is contrast there within the stomach and duodenum. There is some extravasation there. There are no peritoneal signs in the abdomen. I was consulted to see i f the patient's possible osteo could account for the sepsis. She has multiple wounds, but they do no t appear to be acutely infected. We will await the MRI results of the foot to see if the bone is inv olved. Continue her on IV antibiotics. Her electrolytes need to be replaced. She needs to be medic ally stabilized. There is no need for acute surgical intervention and wound care orders will be give n by the wound care staff as soon as I have had a chance to discuss it with them, and we will follow this patient while in the hospital. She may benefit from arterial Doppler of bilateral lower extremity to evaluate her vascular status. ROBERT/JOSHUA Voice ID: [id number] Report ID: [id number]
[2017-12-12 21:08] LABS: Urine Appearance TURBID; Urine Bilirubin NEGATIVE (NEG); Urine Blood 2+ (NEG); Urine Color YELLOW; Urine Glucose NEGATIVE (NEG); Urine Protein 1+ (NEG); Urine Urobilinogen 0.2 mg/dL (0.2-1.0); Urine pH 5.5 (5.0-7.0)
[2017-12-12] MEDS: CARVEDILOL 6.25 MG TAB PO SCH (21:11)
[2017-12-12 22:14] LABS: Urine Bacteria 20-50 /HPF (<20); Urine Culture Reflex Order REFLEXED; Urine Mucus 2+ /HPF (NONE SEEN)
[2017-12-12] MEDS ORDERED: D5W 1,000 ML with POTASSIUM CL 20 MEQ IV SCH ×2 (23:00)
[2017-12-12] MEDS: D5W 1,000 ML with POTASSIUM CL 20 MEQ IV SCH ×2 (23:00)
[2017-12-13] MEDS ORDERED: D5W 1,000 ML IV ONE (00:42)
[2017-12-13] MEDS ORDERED: KCL 20 MEQ/100 mL IVPB 20 MEQ/100 ML BAG IV ONE (00:42)
[2017-12-13] MEDS: PIPER/TAZO/NS 2.25gm 2.25 GM/50 ML BAG IVPB SCH ×3 (01:34→16:46)
[2017-12-13] MEDS ORDERED: INSULIN -REGULAR HUMAN 50 UNIT/0.5 ML ML SQ SCH (06:00)
[2017-12-13] MEDS: INSULIN -REGULAR HUMAN 50 UNIT/0.5 ML ML SQ SCH ×4 (07:30→22:22)
--- NOTE | 2017-12-13 08:41 | RAD REPORT ---
EXAM DESCRIPTION: RAD - Chest Single View - 12/13/2017 6:35 am CLINICAL HISTORY: CHF COMPARISON: 12/12/2017 FINDINGS: Portable technique limits examination quality. Mild interstitial pulmonary edema suspected. The heart is mildly enlarged in size with a multilead pa cer/defibrillator device present. No displaced fractures.Sternotomy wires present. IMPRESSION: Stable mild CHF/ volume overload pattern.
--- NOTE | 2017-12-13 08:57 | P.PN ---
Subjective Date of Service: 12/13/17 Primary Care Provider: Jaime SONI; Nephrology-Dr. Paiz Chief Complaint: Abnormal lab Subjective: Other (Patient without any significant pain. Patient stable at this time.) Physical Examination - Vital Signs Temperature: 97.9 F Blood Pressure: 142/72 Pulse: 79 Respirations: 18 Pulse Ox (%): 100 - Physical Exam General: Alert, Cooperative HEENT: Atraumatic Neck: Supple Respiratory: Clear to auscultation bilaterally, Normal air movement Cardiovascular: Normal pulses, Regular rate/rhythm Gastrointestinal: Normal bowel sounds, Soft and benign, Non-distended, No masses , No rebound, No guarding, Other (Feeding tube in place) Musculoskeletal: Other (Bandages to the right lower extremity) Neurological: Normal speech, Normal strength at 5/5 x4 extr, Normal tone - Studies Laboratory Data (last 24 hrs) 12/12/17 11:42: PT 11.6, INR 0.98, APTT 25.9 12/12/17 11:42: WBC 15.3 H D, Hgb 7.8 L*, Hct 23.1 L, Plt Count 317 12/12/17 11:42: B-Natriuretic Peptide 3136 H 12/12/17 11:42: Sodium 146 H, Potassium 2.4 L*, BUN 102 H, Creatinine 2.37 H, Glucose 108, Magnesium 1.3 L*, Total Bilirubin 0.5, AST 20, ALT 12, Alkaline Phosphatase 125 H, Lipase 55 H Medications List Reviewed: Yes Assessment & Plan - Problems (Diagnosis) (1) Diabetes mellitus Current Visit: Yes Status: Chronic Plan: Will continue with Accu-Cheks and sliding scale. Will check A1c. Qualifiers: Diabetes mellitus type: type 2 Diabetes mellitus extermination supervisor insulin use: without extermination supervisor use Diabetes mellitus complication status: with other specified complication Qualified Code(s): E11.69 - Type 2 diabetes mellitus with other specified complication (2) History of automatic internal cardiac defibrillator (AICD) Current Visit: Yes Status: Chronic Plan: Overall stable. Will continue monitor closely. Will monitor cardiac enzymes. Cardiology consulted to further assess. (3) CHF (congestive heart failure) Current Visit: Yes Status: Acute Plan: Suspect acute on chronic systolic CHF. Chest x-ray shows pulmonary edema. CT scan shows bilateral pleural effusions. Will continue with IV Lasix. Cardiology consulted. Await further recommendations. Will check echocardiogram. Will try to obtain records from [facility]. Qualifiers: Heart failure type: systolic Heart failure chronicity: acute on chronic Qualified Code(s): I50.23 - Acute on chronic systolic (congestive) heart failure (4) Atrial fibrillation Current Visit: Yes Status: Chronic Plan: Stable at this time. Will continue with rate control medication. Patient not on chronic anti coagulation therapy. Will continue with DVT prophylaxis. Qualifiers: Atrial fibrillation type: chronic Qualified Code(s): I48.2 - Chronic atrial fibrillation (5) Hypokalemia Current Visit: Yes Status: Acute Plan: Will replace potassium. Replacement protocol in place. (6) Anemia Current Visit: Yes Status: Acute Plan: Patient with anemia likely of chronic disease. Will monitor hemoglobin. If hemoglobin is below 7 then the patient will need transfusion. Qualifiers: Anemia type: due to chronic kidney disease Chronic kidney disease stage: stage 4 (severe) Qualified Code(s): N18.4 - Chronic kidney disease, stage 4 ( severe); D63.1 - Anemia in chronic kidney disease (7) DM foot ulcer Current Visit: Yes Status: Acute Plan: Diabetic foot ulcer noted to the right foot. Black eschar noted. Suspect osteomyelitis. Case discussed with surgery. Likely not osteomyelitis. Will check bone scan to evaluate. Patient not able to have MRI due to pacemaker. Will continue with vancomycin and Zosyn. Qualifiers: Diabetic foot ulcer location: other Diabetes mellitus type: type 2 Laterality: right (8) Osteomyelitis Current Visit: Yes Status: Suspected Plan: Continue as above. Await bone scan. Qualifiers: Osteomyelitis type: unspecified type Osteomyelitis location: foot Laterality: right Qualified Code(s): M86.9 - Osteomyelitis, unspecified (9) Feeding tube dysfunction Current Visit: Yes Status: Acute Plan: Feeding tube was not in place. This was adjusted. Repeat x-ray with Gastrografin shows this is in place. Qualifiers: Encounter type: initial encounter Qualified Code(s): T85.598A - Other mechanical complication of other gastrointestinal prosthetic devices, implants and grafts, initial encounter (10) Acute kidney injury superimposed on CKD Onset Date: 08/27/17 Current Visit: No Status: Acute Plan: Patient with acute on chronic renal disease. Await recommendations from nephrology (11) CAD (coronary artery disease) Onset Date: 08/27/17 Current Visit: No Status: Chronic Plan: Will monitor cardiac enzymes. Will check echocardiogram. Cardiology consulted. Qualifiers: (12) Dementia Onset Date: 08/27/17 Current Visit: No Status: Suspected Plan: Patient may have underlying dementia. Will need to investigate this. Will obtain records from [facility]. Qualifiers: (13) Hypertension Onset Date: 08/27/17 Current Visit: No Status: Chronic Plan: Will continue with blood pressure medication. Will hold blood pressure medication if less than 120 systolic. Qualifiers: Hypertension type: essential hypertension Qualified Code(s): I10 - Essential (primary) hypertension (14) Hypomagnesemia Current Visit: Yes Status: Acute Plan: Will monitor and replace appropriately. Replacement protocol in place. (15) Chronic kidney disease (CKD) Current Visit: No Status: Acute Plan: Nephrology consulted. Will monitor closely. Await further recommendation. Qualifiers: Chronic kidney disease stage: stage 4 (severe) Qualified Code(s): N18.4 - Chronic kidney disease, stage 4 (severe) (16) Malnutrition Current Visit: Yes Status: Chronic Plan: Will have dietary assess her malnutrition. Will check to see if the patient can swallow. If so will start diet. Will also check to see what the patient is getting at the care home through the PEG tube. Qualifiers: Malnutrition type: protein-calorie malnutrition Protein-calorie malnutrition severity: severe Qualified Code(s): E43 - Unspecified severe protein-calorie malnutrition (17) Pleural effusion Current Visit: Yes Status: Acute Plan: Likely from CHF. Will continue with Lasix. (18) Anasarca Current Visit: Yes Status: Chronic Plan: Will continue with diuretics. (19) UTI (urinary tract infection) Current Visit: Yes Status: Suspected Plan: Patient on antibiotic therapy. Will continue to monitor closely. Blood and urine cultures obtained. Qualifiers: Urinary tract infection type: site unspecified (20) Hypernatremia Current Visit: Yes Status: Acute Plan: Likely from malnutrition and dehydration. Will discuss with nephrology. Patient may require D5W. Discharge Plan: Long Term Plan to discharge in: Greater than 2 days Time Spent Managing Pts Care (In Minutes): 55
[2017-12-13] MEDS: D5W 1,000 ML with POTASSIUM CL 20 MEQ IV SCH ×4 (09:29→19:38)
[2017-12-13] MEDS: ASPIRIN EC 81 MG TAB PO SCH (09:30)
[2017-12-13] MEDS: CARVEDILOL 6.25 MG TAB PO SCH ×2 (09:30→22:21)
[2017-12-13] MEDS: NIFEDIPINE XL 90 MG TABLET PO SCH (09:30)
[2017-12-13] MEDS: DIGOXIN 0.125 MG TABLET PO SCH (09:30)
[2017-12-13] MEDS: CLOPIDOGREL 75 MG TABLET PO SCH (09:31)
--- NOTE | 2017-12-13 09:38 | ECHO ---
HEIGHT: 5 ft 2 in WEIGHT: 149 lb 6.4 oz DATE OF STUDY: 12/12/[address]: Christos Mccall DO 2-DIMENSIONAL: YES M.MODE: YES DOPPLER: YES COLOR FLOW: YES TDS: NO PORTABLE: NO DEFINITY: NO BUBBLE STUDY: NO DIAGNOSIS: SHORTNESS OF BREATH, CONGESTIVE HEART FAILURE CARDIAC HISTORY: CATHERIZATION: NO SURGERY: YES PROSTHETIC VALVE: NO PACEMAKER: YES MEASUREMENTS (cm) DIASTOLIC (NORMALS) SYSTOLIC (NORMALS) IVSd 1.1 (0.6-1.2) LA Diam 3.9 (1.9-4.0) LVEF 20% LVIDd 4.8 (3.5-5.7) LVIDs 4.4 (2.0-3.5) %FS 9% LVPWd 1.2 (0.6-1.2) Ao Diam 2.8 (2.0-3.7) 2 DIMENSIONAL ASSESSMENT: RIGHT ATRIUM: NORMAL LEFT ATRIUM: NORMAL RIGHT VENTRICLE: NORMAL SIZE LEFT VENTRICLE: NORMAL SIZE TRICUSPID VALVE: NORMAL MITRAL VALVE: MITRAL ANNULAR CALCIFICATION PULMONIC VALVE: NORMAL AORTIC VALVE: SCLEROSIS PERICARDIAL EFFUSION: NONE AORTIC ROOT: NORMAL LEFT VENTRICULAR WALL MOTION: SEVERE GLOBAL HYPOKINESIS. DOPPLER/COLOR FLOW: MODERATE MITRAL, AORTIC, TRICUSPID AND PULMONARY REGURGITATION. SEVERE PULMONARY HYPERTENSION. COMMENTS: SEVERE PULMONARY HYPERTENSION. AORTIC SCLEROSIS. MITRAL ANNULAR CALCIFICATION. SEVERE GLOBAL HYPOKINESIS. TECHNOLOGIST: Antolin MOORE
--- NOTE | 2017-12-13 10:30 | EKG ---
Test Date: 2017-12-12 Test Time: 16:42:12 Laundry Helper: FRANCE MEASUREMENT RESULTS: Intervals: Rate: 87 HI: QRSD: 128 QT: 432 QTc: 519 [place]: P: HI: QRS: 139 T: -41 INTERPRETIVE STATEMENTS: Electronic ventricular pacemaker Compared to ECG 12/12/2017 10:58:26 No significant changes Electronically Signed On 12-13-17 10:27:20 CDT by Arik Roa
--- NOTE | 2017-12-13 10:32 | EKG ---
Test Date: 2017-12-12 Test Time: 10:58:26 Outside Upholsterer: FRANCE MEASUREMENT RESULTS: Intervals: Rate: 82 TN: QRSD: 138 QT: 466 QTc: 544 [place]: P: TN: QRS: 124 T: 250 INTERPRETIVE STATEMENTS: Electronic ventricular pacemaker Compared to ECG 08/27/2017 16:20:53 AV dual-paced complex(es) or rhythm no longer present Electronically Signed On 12-13-17 10:27:35 CDT by Arik Roa
[2017-12-13 10:38] LABS: Absolute Lymphocytes (CBC) 1.3 K/uL (0.7-4.9); Absolute Neutrophil 11.1 K/uL (1.8-8.0); Basophils % 0.7 % (0-1.3); Eosinophils % 2.5 % (0-4.4); Hematocrit 21.5 % (36.0-45.0); Lymphocytes % 9.4 % (15.3-44.8); MCH 30.4 pg (27.0-35.0); MCV 90.3 fL (80-100); MPV 10.3 fL (7.6-11.3); RBC Red Blood Cell Count 2.38 M/uL (3.86-4.86)
[2017-12-13 10:40] LABS: RBC Red Blood Cell Count 2.68 M/uL (3.86-4.86)
[2017-12-13 11:37] LABS: Ferritin 964.7 ng/ml (11.0-306.8)
[2017-12-13 11:50] LABS: Thyroid Stimulating Hormone 1.61 uIU/mL (0.34-5.60)
[2017-12-13 11:57] LABS: Magnesium 1.5 mg/dL (1.8-2.5)
[2017-12-13 12:35] LABS: Transferrin < 70 mg/dL (192-382)
[2017-12-13] MEDS ORDERED: NEPRO 1,000 ML BOT FT SCH (13:00)
[2017-12-13 13:29] LABS: A1c Component 0.34 mg/dL
--- NOTE | 2017-12-13 13:39 | PN ---
Date of Progress Note: 12/13/2017 Subjective: The patient is more awake and alert today. Feels better. Objective: Vital Signs: Stable. She is afebrile. Extremities: Her dressings are clean dry and intact Laboratory Data: Urinalysis is reviewed. She has 2+ blood, 3+ esterase. White cells are loaded, rb c's 10-20, bacteria is 20-50. Her laboratory data is Pending. Assessment: An 82-year-old female with multiple medical problems with likely urosepsis and multiple wounds. Recommendations: Discussed the case with Dr. Mccall. We will go ahead and get a bone scan of the ri t foot to rule out the osteo as I do not think this is the source of her illness and once that is d one and if it negative, I can follow her up as an outpatient in the [facility]. ROBERT/JOSHUA Voice ID: [id number] Report ID: [id number]
[2017-12-13] MEDS ORDERED: VANCOMYCIN 1 GM in NA CHLORIDE 0.9% 500 ML IVPB SCH (14:00)
[2017-12-13] MEDS: ENOXAPARIN 30 MG/0.3 ML SQ SCH (16:46)
[2017-12-13] MEDS: SODIUM BICARB 325 MG TAB PO SCH ×2 (17:45→22:20)
--- NOTE | 2017-12-13 17:52 | P.PN ---
Date of Service: 12/13/17 Vital Signs Temp Pulse Resp BP Pulse Ox 97.8 F 76 18 132/57 L 96 12/13/17 16:00 12/13/17 16:00 12/13/17 16:00 12/13/17 16:00 12/13/17 16:00 Medications Acetaminophen (Tylenol -Extra Strength) 500 mg PO Q4HP PRN PRN Reason: [id number] Stop: 01/11/18 12:45 Acetaminophen (Tylenol Suppository) 650 mg NJ Q6HP PRN PRN Reason: [id number] Stop: 01/11/18 12:45 Hydrocodone Bitart/Acetaminophen (Ipava 7.5/325 Mg) 1 tab PO TID PRN PRN Reason: PAIN MODERATE TO SEVERE Stop: 01/11/18 21:01 Last Admin: 12/12/17 17:24 Dose: 1 tab Aspirin (Aspirin Ec) 81 mg PO DAILY RASHAWN Stop: 01/12/18 09:01 Last Admin: 12/13/17 09:30 Dose: 81 mg Carvedilol (Coreg) 6.25 mg PO BID RASHAWN Stop: 01/11/18 21:01 Last Admin: 12/13/17 09:30 Dose: 6.25 mg Clopidogrel Bisulfate (Plavix) 75 mg PO DAILY RASHAWN Stop: 01/12/18 09:01 Last Admin: 12/13/17 09:31 Dose: 75 mg Dextrose (Dextrose 50% Syringe) 12.5 gm IV PRN PRN PRN Reason: HYPOGLYCEMIA PROTOCOL Stop: 01/11/18 17:38 Digoxin (Lanoxin) 0.125 mg PO DAILY RASHAWN Stop: 01/12/18 09:01 Last Admin: 12/13/17 09:30 Dose: 0.125 mg Enoxaparin Sodium (Lovenox 30 Mg Inj) 30 mg SQ DAILY 5 PM RASHAWN Stop: 01/12/18 17:01 Last Admin: 12/13/17 16:46 Dose: 30 mg Enteral Nutritional Formula (Nepro) 60 ml FT SEECOM RASHAWN Stop: 01/12/18 13:01 Glucagon (Glucagen) 1 mg IM 1X PRN PRN Reason: HYPOGLYCEMIA Stop: 01/11/18 17:38 Piperacillin/Tazobactam/Sod Chloride (Zosyn 2.25 Gm/50 Ml Ivpb) 2.25 gm in 50 mls @ 100 mls/hr IVPB Q8HR [facility] Stop: 01/11/18 17:01 Last Admin: 12/13/17 16:46 Dose: 50 mls Potassium Chloride 20 meq/ (Dextrose/Water) 1,010 mls @ 100 mls/hr IV .Q10H6M [facility] Stop: 01/11/18 23:01 Last Admin: 12/13/17 09:29 Dose: 1,010 mls Vancomycin HCl (Vancomycin 1 Gm/250 Ml Ns Ivpb) 1 gm in 250 mls @ 166.667 mls/ hr IV Q48H [facility]; Protocol Stop: 01/13/18 13:01 Insulin Human Regular (Novolin -R) 0 unit SQ ACHS [facility]; Protocol Stop: 01/12/18 07:31 Last Admin: 12/13/17 16:45 Dose: 2 unit Nifedipine (Procardia Xl) 90 mg PO DAILY [facility] Stop: 01/12/18 09:01 Last Admin: 12/13/17 09:30 Dose: 90 mg Ondansetron HCl (Zofran) 4 mg IV Q6HP PRN PRN Reason: NAUSEA / VOMITING Stop: 01/11/18 12:45 Potassium Bicarbonate (K-Lyte) 25 meq PO Q6H [facility] Stop: 12/14/17 00:01 Sodium Bicarbonate (Sodium Bicarb 325 Mg) 650 mg PO QID [facility] Stop: 01/12/18 17:46 Sodium Chloride (Normal Saline Flush) 10 ml IV BID [facility] Stop: 01/11/18 21:01 Last Admin: 12/13/17 09:31 Dose: 10 ml Tramadol HCl (Ultram) 50 mg PO TID PRN PRN Reason: PAIN MILD TO MODERATE Stop: 01/11/18 17:07 Lab Results (last 24 hrs) 12/12/17 09:50: RBC 2.68 L, Absolute Retic 0.07, Percent Retic 2.58 H 12/12/17 09:50: Iron 23.0 L, TIBC 88 L, Transferrin < 70 L, Transferrin % Sat 26.1, Ferritin 964.7 H, Vitamin B12 734, Serum Folate 10.0 Microbiology Results 12/12/17 10:20 Blood - Blood Aerobic Blood Culture - Preliminary No growth in 24 hours. 12/12/17 10:20 Blood - Blood Anaerobic Blood Culture - Preliminary No growth in 24 hours. Assessment/ Plan: Nephrology. No acute events overnight. CPS stable without CP or SOB. Limited IH/ ROS due to dementia. Vitals, medications, blood work and imaging reviewed in the chart. General: Alert, Cooperative, Cachectic HEENT: Atraumatic Neck: Supple Respiratory: Clear to auscultation bilaterally, Normal air movement Cardiovascular: No edema, Regular rate/rhythm Gastrointestinal: Hypoactive, Soft and benign Musculoskeletal: No clubbing, No warmth Integumentary: No rashes, No cyanosis Neurological: Normal speech Laboratory Data (last 24 hrs) 12/12/17 11:42: PT 11.6, INR 0.98, APTT 25.9 12/12/17 11:42: WBC 15.3 H D, Hgb 7.8 L*, Hct 23.1 L, Plt Count 317 12/12/17 11:42: B-Natriuretic Peptide 3136 H 12/12/17 11:42: Sodium 146 H, Potassium 2.4 L*, BUN 102 H, Creatinine 2.37 H, Glucose 108, Magnesium 1.3 L*, Total Bilirubin 0.5, AST 20, ALT 12, Alkaline Phosphatase 125 H, Lipase 55 H Imagings Data: EXAM DESCRIPTION: CT - Abdomen Pelvis Wo Contrast - 12/12/2017 11:10 am CLINICAL HISTORY: Abdominal pain. Diarrhea COMPARISON: None TECHNIQUE: CT imaging of the abdomen and pelvis was performed without contrast. Solid organ, bowel and vascular assessment is limited due to lack of IV and oral contrast. All CT scans are performed using dose optimization technique as appropriate and may include automated exposure control or mA/KV adjustment according to patient size. FINDINGS: Small bilateral pleural effusions are present. Mild linear atelectasis is noted in both lung bases. The liver demonstrates no focal mass or biliary dilatation mild free fluid along the right liver edge is seen. A demonstrates mild free fluid along the inferior margin.The pancreas, adrenal glands and kidneys are within normal limits. The bulb of the gastrostomy tube is along the tract between the stomach in the skin. It is not within the stomach lumen. No bowel obstruction, free air, or abscess. Mild free fluid is seen in the pelvis. Aortoiliac atherosclerosis. The appendix is normal. Prominent degenerative changes present in both hips.Generalized anasarca pattern is seen. IMPRESSION: Small bilateral pleural effusions are present with mild free fluid in the abdomen and generalized anasarca pattern. Bulb of the feeding tube as detailed above is not within the stomach but rather in subcutaneous tissues. Conclusions/Impression: A/ CARMEN likely due to hypovolemia. CKD IV. Acidosis. Hypernatremia/ Dehydration. Hypokalemia. 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 Systolic CHF, chronic. Anemia in chronic illness. Hypomagnesemia. Moderate protein malnutrition/ Cachexia. P/ Continue current POC and Medications. Continue IVF. Start bicarb through PEG. Give potassium. IV magnesium as needed. Transfuse PRBC as needed. No NSAIDs. AM labs. Daily weight.
[2017-12-13] MEDS: POTASSIUM 25 MEQ EFFERV TAB PO SCH (18:00)
[2017-12-13 22:26] LABS: Hematocrit 22.9 % (36.0-45.0)
[2017-12-13] MEDS ORDERED: Magnesium Sulfate 2gm IVPB 2 G/50 ML BAG IV ONE (23:31)
[2017-12-14] MEDS: POTASSIUM 25 MEQ EFFERV TAB PO SCH (00:18)
[2017-12-14] MEDS: PIPER/TAZO/NS 2.25gm 2.25 GM/50 ML BAG IVPB SCH ×3 (01:00→16:16)
[2017-12-14] MEDS ORDERED: PIPER/TAZO/NS 2.25gm 2.25 GM/50 ML BAG ONE (01:18)
[2017-12-14 06:32] LABS: Absolute Lymphocytes (CBC) 1.2 K/uL (0.7-4.9); Absolute Neutrophil 11.8 K/uL (1.8-8.0); Basophils % 0.4 % (0-1.3); Eosinophils % 3.5 % (0-4.4); Lymphocytes % 8.5 % (15.3-44.8); MCH 30.5 pg (27.0-35.0); MCV 91.6 fL (80-100); MPV 9.9 fL (7.6-11.3); Monocytes % 6.9 % (3.3-12.3)
[2017-12-14 06:56] LABS: Magnesium 1.7 mg/dL (1.8-2.5); Potassium 3.5 mEq/L (3.6-5.0)
[2017-12-14] MEDS: INSULIN -REGULAR HUMAN 50 UNIT/0.5 ML ML SQ SCH ×4 (07:30→21:00)
[2017-12-14] MEDS: D5W 1,000 ML with POTASSIUM CL 20 MEQ IV SCH ×4 (08:44→16:13)
[2017-12-14] MEDS: DIGOXIN 0.125 MG TABLET PO SCH (08:46)
[2017-12-14] MEDS: ASPIRIN EC 81 MG TAB PO SCH (08:46)
[2017-12-14] MEDS: NIFEDIPINE XL 90 MG TABLET PO SCH (08:46)
[2017-12-14] MEDS: CARVEDILOL 6.25 MG TAB PO SCH ×2 (08:46→22:00)
[2017-12-14] MEDS: CLOPIDOGREL 75 MG TABLET PO SCH (08:46)
[2017-12-14] MEDS: SODIUM BICARB 325 MG TAB PO SCH ×4 (08:47→21:59)
[2017-12-14] MEDS ORDERED: GLUCAGON 1 MG/VIAL IM PRN (11:03)
[2017-12-14] MEDS ORDERED: D50W 25 GM/50 ML SYRINGE IV PRN (11:03)
[2017-12-14] MEDS ORDERED: EPOETIN ALFA 4,000 UNIT/ML VIAL SQ SCH (12:00)
--- NOTE | 2017-12-14 12:03 | P.PN ---
Subjective Date of Service: 12/14/17 Primary Care Provider: Jaime SONI; Nephrology-Dr. Paiz Chief Complaint: Abnormal lab Subjective: No new changes (patient alert. comfortable. hb lower. hospitalist to review when transfusion needed. vitals stable. give a dose of 4,000 units procrit today subcutaneous. check guiac stool.) patient seen/examined. looks comfortable. alert. vs stable. lungs: decreased bs b/l cvs: regular abd: soft/nt/bs + ext: trace edema a/p: low hb/chronic renal disease/? keith/dementia: fall precautions. may need transfusion. procrit dose today. guiac stools to monitor. plan discussed with Rn and supervisor in charge Physical Examination - Vital Signs Temperature: 99.6 F Blood Pressure: 140/61 Pulse: 86 Respirations: 16 Pulse Ox (%): 98 - Studies Medications List Reviewed: Yes
[2017-12-14] MEDS ORDERED: VANCOMYCIN/NS 1 gm 1 GM/250 ML BAG IV SCH (13:00)
--- NOTE | 2017-12-14 13:04 | CON ---
Date of Consultation: 12/13/2017 The patient admitted on 12/12/[address] Mccall service. I saw the patient on 12/13/2017. Reason For Consultation: Congestive heart failure, renal failure, and atrial fibrillation. History Of Present Illness: Mrs. Frias is an 82-year-old woman, who is a do not resuscitate. Has a very complex past medical history including anemia, diabetes, dyslipidemia, atrial fibrillation, hy pertension, coronary artery disease, and congestive heart failure. She is status post defibrillator pacemaker and she has a PEG tube. She came in with shortness of breath, worsening renal function, po ssible sepsis. MRI is pending for osteomyelitis. Known ejection fraction of 20% by echocardiography . BNP of 3136, troponin 0.1, creatinine of 2.37, elevated white count of 15, potassium 3.4, magnesiu m of 1.3, anemia with hemoglobin of 8.5. . Past Medical History: As stated above. Allergies: NONE. Review of Systems: Negative. Social History: Negative. Family History: Noncontributory. Medications: At home include aspirin, Plavix, Coreg, digoxin, Lasix, metformin, and Procardia. Physical Examination: Vital Signs: Stable. She was in atrial fibrillation at a rate of 80. Afebrile. HEENT: Negative. Neck: Supple without any bruit, lymphadenopathy, JVD, or thyromegaly. Chest: Reveals some rales at both bases. Cardiac: Revealed atrial fibrillation. No gallops or rubs. Abdomen: Benign. Extremities: Revealed no clubbing or cyanosis. She had 1+ edema. Impression And Plan: 1.Acute exacerbation of chronic systolic congestive heart failure. 2.Gpyzu-ml-wklvjqy exacerbation of renal failure. 3.Possible sepsis secondary to possible osteomyelitis. 4.Elevated white count. 5.Possible peripheral arterial disease, arterial Doppler is pending. 6.Elevated BNP and troponin secondary to congestive heart failure. 7.Chronic anemia. 8.Hypomagnesemia. 9.Hypokalemia. 10.Chronic atrial fibrillation. 11.History of AICD and pacemaker. 12.History of coronary artery disease. 13.History of hypertension, well controlled. 14.History of anemia. 15.DNR status. 16.Status post PEG tube. I think Mrs. Frias needs to have her Lasix increased. She needs to have her Coreg increased. She n eeds to have Procardia completely discontinued, this is contraindicated really with ejection fraction of 20%. She needs potassium and magnesium supplementation. We will see what her arterial Doppler s hows. We will see what her MRI shows for osteomyelitis. She needs to be on antibiotics for possible sepsis. I do not have any plan to do any intervention on Mrs. Frias at this point. I will contin ue to follow her. YARELIS/JOSHUA Voice ID: [id number] Report ID: [id number]
[2017-12-14 13:27] LABS: Ferritin 1005.5 ng/ml (11.0-306.8)
[2017-12-14 13:38] LABS: Transferrin < 70 mg/dL (192-382)
--- NOTE | 2017-12-14 14:04 | PN ---
Date of Progress Note: 12/13/2017 Ms. Frias was admitted on 12/12/2017. I saw her on 12/13/2017 for congestive heart failure, renal failure, atrial fibrillation, ejection fraction of 20%. She had low potassium and low magnesium. I suggested discontinuing Procardia, increasing Coreg and Lasix. Magnesium and potassium have been sup plemented. She is improving slowly. No shortness of breath today. I will continue to follow her wi th you. YARELIS/JOSHUA Voice ID: [id number] Report ID: [id number]
[2017-12-14] MEDS: ENOXAPARIN 30 MG/0.3 ML SQ SCH (16:18)
[2017-12-14] MEDS ORDERED: INSULIN DETEMIR 100 UNIT/1 ML INSULIN SQ SCH (17:00)
[2017-12-14 21:16] LABS: Magnesium 1.7 mg/dL (1.8-2.5)
[2017-12-14 21:23] LABS: Potassium 4.1 mEq/L (3.6-5.0)
[2017-12-14] MEDS ORDERED: MAGNESIUM SULFATE 1 gm IVPB 1 GM/100 ML BAG IV ONE (23:00)
[2017-12-15] MEDS: PIPER/TAZO/NS 2.25gm 2.25 GM/50 ML BAG IVPB SCH ×3 (00:14→17:38)
[2017-12-15] MEDS: D5W 1,000 ML with POTASSIUM CL 20 MEQ IV SCH ×6 (00:30→17:40)
--- NOTE | 2017-12-15 06:02 | PN ---
Subjective: The patient is currently lying in bed. She looks comfortable. She refused to go to bon e scan this morning. No chest pain. No abdominal pain. No fever, no chills overnight. Temperature max 99.6. Objective: Vital signs: Blood pressure 140/61, respiratory rate 16, pulse 86, temperature 99.6. General: She is alert, does not look in any distress. HEENT: Atraumatic, normocephalic. PERRLA. Oral mucosa is moist. Neck: Supple. No JVD. No carotid bruits. Chest: Clear to auscultation. Good air entry. Heart: Regular rate and rhythm. S1, S2 normal. No gallop or murmur. Abdomen: Soft, nontender. No masses. No hepatosplenomegaly. Positive bowel sounds. She does have a PEG tube in place. Extremities: No clubbing, no cyanosis. She does have a large bandage on her right lower extremity. Laboratory Data: Today showed CBC with white blood cells of 14.6, hemoglobin 7.3, platelets 292. So dium 142, potassium 3.5, creatinine 2.6, glucose 210, magnesium 1.7. Assessment And Plan: 1.Diabetic foot ulcer with ?osteomyelitis. The patient has a large foot ulcer on the right side wit h black eschar. The patient was seen by General Surgery. Bone scan ordered, but patient refused to do it this morning. We will try to send her back again this afternoon. She is currently on Zosyn an d vancomycin. No positive culture. 2.Acute on chronic renal insufficiency. Creatinine around 2.5. Nephrology consult appreciated. Co ntinue IV fluid and bicarb through a PEG tube. Replace potassium and magnesium. 3.Anemia, severe; mostly anemia of chronic disease. I will check her iron profile today and will ch kurt stool occult blood. 4.Hypokalemia, resolved. 5.History of congestive heart failure with atrial fibrillation status post AICD. Chest x-ray showed pulmonary edema. CAT scan showed bilateral pleural effusion. The patient is on IV Lasix. Cardiolo gy consult pending. Echocardiogram done and showed severe pulmonary hypertension, aortic sclerosis, mitral annular calcification with severe global hypokinesis. Continue aspirin, Coreg, Plavix. 6.Deep vein thrombosis prophylaxis. She is on Lovenox lower dose due to renal insufficiency. 7.Urinary tract infection. Urine culture less than 100,000. She is on Zosyn and vanco. 8.Anasarca. She is on tube feeds. 9.Pleural effusion secondary to congestive heart failure. Continue Lasix. Repeat chest x-ray in th e morning. 10.Hypernatremia, resolved. 11.Hyperglycemia. We will check hemoglobin A1c. The patient is already on an insulin sliding scale . Metformin on hold due to renal insufficiency, but she may need baseline insulin like Lantus while inpatient to control blood sugar. 12.Wound care consult needed. DAVID/MODL Voice ID: [id number] Report ID: [id number]
[2017-12-15 06:32] LABS: Absolute Lymphocytes (CBC) 1.4 K/uL (0.7-4.9); Absolute Monocytes 0.8 K/uL (0.1-1.3); Absolute Neutrophil 10.6 K/uL (1.8-8.0); Basophils % 0.2 % (0-1.3); Eosinophils % 3.2 % (0-4.4); Hematocrit 22.6 % (36.0-45.0); Lymphocytes % 10.6 % (15.3-44.8); MCH 30.1 pg (27.0-35.0); MCV 91.1 fL (80-100); MPV 9.2 fL (7.6-11.3); Monocytes % 6.1 % (3.3-12.3); RBC Red Blood Cell Count 2.48 M/uL (3.86-4.86)
[2017-12-15 06:51] LABS: Potassium 3.7 mEq/L (3.6-5.0)
[2017-12-15 07:52] LABS: Anisocytosis 1+; Blood Morphology Comment NOTED (NOT SEEN); Platelet Estimate ADEQ; Urine White Blood Cell Casts OK
[2017-12-15] MEDS ORDERED: KCL 20 MEQ/100 mL IVPB 20 MEQ/100 ML BAG IV SCH (09:00)
[2017-12-15] MEDS: CLOPIDOGREL 75 MG TABLET PO SCH (09:49)
[2017-12-15] MEDS: CARVEDILOL 6.25 MG TAB PO SCH ×3 (09:49→21:15)
[2017-12-15] MEDS: DIGOXIN 0.125 MG TABLET PO SCH (09:50)
[2017-12-15] MEDS: SODIUM BICARB 325 MG TAB PO SCH ×5 (09:50→21:16)
[2017-12-15] MEDS: ASPIRIN EC 81 MG TAB PO SCH (09:50)
[2017-12-15] MEDS ORDERED: GLUCAGON 1 MG/VIAL IM PRN (10:04)
[2017-12-15] MEDS ORDERED: D50W 25 GM/50 ML SYRINGE IV PRN (10:04)
[2017-12-15] MEDS: INSULIN -REGULAR HUMAN 50 UNIT/0.5 ML ML SQ SCH ×4 (11:30→21:15)
--- NOTE | 2017-12-15 14:55 | PN ---
Subjective: Currently patient lying in bed. She looks comfortable. She is confused but apparently that is her baseline. No chest pain. No abdominal pain. A bone scan was not done yesterday because in the morning she refused to go downstairs to Radiology. Physical Examination: Vital Signs: Today blood pressure is at 134/67, respiratory rate 20, pulse 62, temperature 97.3. General: She is alert, but not oriented. Does not look in any distress. HEENT: Atraumatic, normocephalic. PERRLA. Oral mucosa is dry. Neck: Supple. No JVD. No bruits. Chest: Clear to auscultation. Poor effort. Heart: Regular rate and rhythm. S1, S2 normal. No gallop. Abdomen: Soft, nontender. No masses. No hepatosplenomegaly. Positive bowel sounds. Positive PEG tube. Extremities: No clubbing, no cyanosis. Large bandage on her right lower extremity where she has a f oot ulcer. Laboratory Data: Today showed CBC with white blood cells 13.2, hemoglobin 7.5, platelet 285. Chemis try showed BUN of 86, creatinine of 2.49. Glucose was down to 28. Assessment And Plan: Diabetic foot also with? Osteomyelitis. The patient with a large foot ulcer on the right side with black eschar. General surgery evaluated the patient. Bone scan ordered, the pauline wynn denied it yesterday. We will try to do it today if possible but according to the charge nurse. Bone scan is done on week days unless it is emergency, so she may not have it until Saturday morning. The patient is currently on Zosyn and vancomycin and cultures still negative. 1.Acute on chronic renal insufficiency. Creatinine again around 2.5, today. I appreciate Dr. Paiz input. 2.Hyperglycemia, resolved, check also hemoglobin A1c and that was at 6. The patient could not darnell ate low dose of insulin as her PEG tube was malfunctioning so we have to stop that tube feed and her glucose dropped today to 28, so I discontinued the low dose insulin glargine that I started last h . We will keep the patient on insulin sliding scale only. 3.PEG tube malfunctioning. Tube feeds on hold. We will consult GI in the morning. There is no GI on-call today. 4.History of congestive heart failure with atrial fibrillation status post AICD placement. Dr. Khanh goodwin evaluated the patient and advised to stop Procardia, increase Lasix and Coreg. She is currently on Coreg 6.25 twice a day. Digoxin 0.125. We will continue Lasix 40 mg once a day IV. 5.Anemia, severe with hemoglobin around 7.5. Stool occult blood was checked and it was negative. I sunil profile consistent with anemia of chronic disease. The patient on Procrit. Nephrology will cons ider transfusion if hemoglobin drops below 7. 6.Pleural effusion on the CT and x-ray secondary to congestive heart failure. We will repeat chest x-ray in the morning. Continue Lasix. 7.DVT prophylaxis. Lovenox 30 due to renal insufficiency. 8.Diabetes mellitus history. Hemoglobin A1c was 6. The patient's metformin was stopped due to her renal insufficiency. She did not tolerate a low dose of insulin overnight due to tube issues with tu be feed. We have to stop the enteral feeding due to tube feed malfunctioning. I will discontinue in sulin and keep her on insuline sliding scale low dose. 9.Discharge plan after bone scan done and decided the patient has osteomyelitis or not to decide kaylie g-term antibiotic need. DAVID/JOHNL Voice ID: [id number] Report ID: [id number]
--- NOTE | 2017-12-15 15:45 | RAD REPORT ---
EXAM DESCRIPTION: RAD - Chest Single View - 12/15/2017 2:42 pm CLINICAL HISTORY: CHF COMPARISON: 12/13/2017, 12/12/2017 FINDINGS: Portable technique limits examination quality. Mild improvement in CHF pattern is seen. Linear opacity in the right base probably represents atelect asis, aspiration not excluded. Heart is mildly moderately enlarged with multilead pacer/defibrillator device present. No displaced fractures.Sternotomy wires present. IMPRESSION: Mild improvement CHF noted.
[2017-12-15] MEDS: ENOXAPARIN 30 MG/0.3 ML SQ SCH (16:46)
[2017-12-16] MEDS: PIPER/TAZO/NS 2.25gm 2.25 GM/50 ML BAG IVPB SCH ×3 (00:28→16:54)
[2017-12-16 05:14] LABS: Absolute Lymphocytes (CBC) 1.4 K/uL (0.7-4.9); Absolute Monocytes 0.9 K/uL (0.1-1.3); Absolute Neutrophil 9.3 K/uL (1.8-8.0); Basophils % 0.3 % (0-1.3); Eosinophils % 4.7 % (0-4.4); Hematocrit 23.9 % (36.0-45.0); Lymphocytes % 11.7 % (15.3-44.8); MCV 92.3 fL (80-100); MPV 9.7 fL (7.6-11.3); RBC Red Blood Cell Count 2.59 M/uL (3.86-4.86)
[2017-12-16 05:22] LABS: Potassium 4.4 mEq/L (3.6-5.0)
[2017-12-16] MEDS: D5W 1,000 ML with POTASSIUM CL 20 MEQ IV SCH ×4 (06:27→16:53)
[2017-12-16] MEDS: INSULIN -REGULAR HUMAN 50 UNIT/0.5 ML ML SQ SCH ×4 (07:30→21:00)
[2017-12-16] MEDS: CLOPIDOGREL 75 MG TABLET PO SCH (09:00)
[2017-12-16] MEDS: CARVEDILOL 6.25 MG TAB PO SCH ×2 (09:00→21:20)
[2017-12-16] MEDS: ASPIRIN EC 81 MG TAB PO SCH (09:00)
[2017-12-16] MEDS: SODIUM BICARB 325 MG TAB PO SCH ×4 (09:00→21:21)
[2017-12-16] MEDS: DIGOXIN 0.125 MG TABLET PO SCH (09:00)
[2017-12-16] MEDS: FUROSEMIDE 40 MG/4 ML VIAL IV SCH (09:03)
[2017-12-16] MEDS: VANCOMYCIN/NS 1 gm 1 GM/250 ML BAG IV SCH (13:00)
--- NOTE | 2017-12-16 15:01 | P.PN ---
Subjective Date of Service: 12/16/17 Primary Care Provider: Jaime SONI; Nephrology-Dr. Paiz Chief Complaint: Abnormal lab Subjective: Demented Physical Examination - Vital Signs Temperature: 98.3 F Blood Pressure: 156/74 Pulse: 60 Respirations: 18 Pulse Ox (%): 99 - Physical Exam General: Alert, Demented HEENT: Atraumatic Neck: Supple Respiratory: Crackles/rales (To the bases) Cardiovascular: Normal pulses, Regular rate/rhythm Gastrointestinal: Normal bowel sounds, Soft and benign, Non-distended, No tenderness, No masses, No rebound, No guarding, Other (PEG tube in place) Musculoskeletal: No tenderness, No warmth Integumentary: Other (Right lower extremity bandaged) Neurological: Normal speech, Normal strength at 5/5 x4 extr, Normal tone, Dementia - Studies Medications List Reviewed: Yes Assessment & Plan - Problems (Diagnosis) (1) Diabetes mellitus Onset Date: 12/13/17 Current Visit: Yes Status: Chronic Plan: Will continue with Accu-Cheks and sliding scale. A1c 6.0. Qualifiers: Diabetes mellitus type: type 2 Diabetes mellitus termite technician insulin use: without termite technician use Diabetes mellitus complication status: with other specified complication Qualified Code(s): E11.69 - Type 2 diabetes mellitus with other specified complication (2) History of automatic internal cardiac defibrillator (AICD) Current Visit: Yes Status: Chronic Plan: Overall stable. Will continue monitor closely. Will monitor cardiac enzymes. Cardiology recommends no further intervention. Medications adjusted. (3) CHF (congestive heart failure) Onset Date: 12/13/17 Current Visit: Yes Status: Acute Plan: This has improved. Will continue with IV Lasix. Cardiology has adjusted medications. Procardia discontinued. Carvedilol increased. Lasix also increased. Will monitor closely. Chest x-ray shows improvement. Anticipate discharge to correction soon. Qualifiers: Heart failure type: systolic Heart failure chronicity: acute on chronic Qualified Code(s): I50.23 - Acute on chronic systolic (congestive) heart failure (4) Atrial fibrillation Onset Date: 12/13/17 Current Visit: Yes Status: Chronic Plan: Stable at this time. Rate controlled. Patient not on chronic anti coagulation therapy due to risk for fall and bleeding. Qualifiers: Atrial fibrillation type: chronic Qualified Code(s): I48.2 - Chronic atrial fibrillation (5) Hypokalemia Onset Date: 12/13/17 Current Visit: Yes Status: Acute Plan: Will replace potassium. Replacement protocol in place. (6) Anemia Onset Date: 12/13/17 Current Visit: Yes Status: Acute Plan: Patient with anemia likely of chronic disease. Patient continues to get Procrit. Will monitor hemoglobin. If below 7.0, patient may require transfusion. So far stool guaiacs negative Qualifiers: Anemia type: due to chronic kidney disease Chronic kidney disease stage: stage 4 (severe) Qualified Code(s): N18.4 - Chronic kidney disease, stage 4 ( severe); D63.1 - Anemia in chronic kidney disease (7) DM foot ulcer Onset Date: 12/13/17 Current Visit: Yes Status: Acute Plan: Diabetic foot ulcer noted to the right foot. Black eschar noted. Patient not able to have MRI due to pacemaker/defibrillator. Patient not willing to cooperate to have bone scan. Surgery plans for no intervention. Will contact in consult infectious disease for recommendation. Patient may be able to be treated with oral antibiotic therapy and wound care. Qualifiers: Diabetic foot ulcer location: other Diabetes mellitus type: type 2 Laterality: right (8) Osteomyelitis Onset Date: 12/13/17 Current Visit: Yes Status: Suspected Plan: Continue as above. Patient refusing have bone scan done. Surgery recommends no intervention. Will consult infectious disease for recommendation on antibiotic. Qualifiers: Osteomyelitis type: unspecified type Osteomyelitis location: foot Laterality: right Qualified Code(s): M86.9 - Osteomyelitis, unspecified (9) Feeding tube dysfunction Onset Date: 12/13/17 Current Visit: Yes Status: Acute Plan: Feeding tube was not in place. This was adjusted. Repeat x-ray with Gastrografin shows this is in place. Qualifiers: Encounter type: initial encounter Qualified Code(s): T85.598A - Other mechanical complication of other gastrointestinal prosthetic devices, implants and grafts, initial encounter (10) Acute kidney injury superimposed on CKD Onset Date: 08/27/17 Current Visit: No Status: Acute Plan: Patient with acute on chronic renal disease. Continue with Nephrology recommendations (11) CAD (coronary artery disease) Onset Date: 08/27/17 Current Visit: No Status: Chronic Plan: Continue with above plan of care. Qualifiers: (12) Dementia Onset Date: 08/27/17 Current Visit: No Status: Suspected Plan: Patient may have underlying dementia. It is been difficult to get bone scan done due to her dementia. Will not force bone scan on patient. Qualifiers: (13) Hypertension Onset Date: 08/27/17 Current Visit: No Status: Chronic Plan: Medications adjusted. Patient on carvedilol. Procardia has been discontinued. Qualifiers: Hypertension type: essential hypertension Qualified Code(s): I10 - Essential (primary) hypertension (14) Hypomagnesemia Onset Date: 12/13/17 Current Visit: Yes Status: Acute Plan: Will monitor and replace appropriately. Replacement protocol in place. (15) Chronic kidney disease (CKD) Current Visit: No Status: Acute Plan: Nephrology consulted. Renal function stable this time. Will discuss with nephrology. Qualifiers: Chronic kidney disease stage: stage 4 (severe) Qualified Code(s): N18.4 - Chronic kidney disease, stage 4 (severe) (16) Malnutrition Onset Date: 12/13/17 Current Visit: Yes Status: Chronic Plan: Will have dietary assess her malnutrition. Qualifiers: Malnutrition type: protein-calorie malnutrition Protein-calorie malnutrition severity: severe Qualified Code(s): E43 - Unspecified severe protein-calorie malnutrition (17) Pleural effusion Onset Date: 12/13/17 Current Visit: Yes Status: Acute Plan: Chest x-ray shows improvement. Will continue with Lasix. (18) Anasarca Onset Date: 12/13/17 Current Visit: Yes Status: Chronic Plan: Will continue with diuretics. (19) UTI (urinary tract infection) Onset Date: 12/13/17 Current Visit: Yes Status: Suspected Plan: So far urine culture negative. Await final results. Will consult infectious disease for recommendation. Qualifiers: Urinary tract infection type: site unspecified (20) Hypernatremia Onset Date: 12/13/17 Current Visit: Yes Status: Acute Plan: Likely from malnutrition and dehydration. This has resolved. Discharge Plan: Assisted Plan to discharge in: 24 Hours Time Spent Managing Pts Care (In Minutes): 55
[2017-12-16] MEDS: ENOXAPARIN 30 MG/0.3 ML SQ SCH (16:54)
[2017-12-16] MEDS: NEPRO 1,000 ML BOT FT SCH (21:23)
--- NOTE | 2017-12-16 22:19 | P.PN ---
Date of Service: 12/16/17 Vital Signs Temp Pulse Resp BP Pulse Ox 98.3 F 85 18 117/71 96 12/16/17 20:00 12/16/17 21:20 12/16/17 20:00 12/16/17 21:20 12/16/17 20:00 Medications Acetaminophen (Tylenol -Extra Strength) 500 mg PO Q4HP PRN PRN Reason: [id number] Stop: 01/11/18 12:45 Acetaminophen (Tylenol Suppository) 650 mg WA Q6HP PRN PRN Reason: [id number] Stop: 01/11/18 12:45 Hydrocodone Bitart/Acetaminophen (Pitts 7.5/325 Mg) 1 tab PO TID PRN PRN Reason: PAIN MODERATE TO SEVERE Stop: 01/11/18 21:01 Last Admin: 12/12/17 17:24 Dose: 1 tab Aspirin (Aspirin Ec) 81 mg PO DAILY RASHAWN Stop: 01/12/18 09:01 Last Admin: 12/16/17 09:00 Dose: Not Given Carvedilol (Coreg) 6.25 mg PO BID RASHAWN Stop: 01/11/18 21:01 Last Admin: 12/16/17 21:20 Dose: 6.25 mg Clopidogrel Bisulfate (Plavix) 75 mg PO DAILY RASHAWN Stop: 01/12/18 09:01 Last Admin: 12/16/17 09:00 Dose: Not Given Dextrose (Dextrose 50% Syringe) 12.5 gm IV PRN PRN PRN Reason: HYPOGLYCEMIA PROTOCOL Stop: 01/11/18 17:38 Last Admin: 12/15/17 07:12 Dose: 12.5 gm Digoxin (Lanoxin) 0.125 mg PO DAILY RASHAWN Stop: 01/12/18 09:01 Last Admin: 12/16/17 09:00 Dose: Not Given Enoxaparin Sodium (Lovenox 30 Mg Inj) 30 mg SQ DAILY 5 PM RASHAWN Stop: 01/12/18 17:01 Last Admin: 12/16/17 16:54 Dose: 30 mg Enteral Nutritional Formula (Nepro) 237 ml FT TID RASHAWN Stop: 01/15/18 21:01 Last Admin: 12/16/17 21:23 Dose: 237 ml Furosemide (Lasix) 40 mg IV DAILY RASHAWN Stop: 01/15/18 09:01 Last Admin: 12/16/17 09:03 Dose: 40 mg Glucagon (Glucagen) 1 mg IM 1X PRN PRN Reason: HYPOGLYCEMIA Stop: 01/11/18 17:38 Piperacillin/Tazobactam/Sod Chloride (Zosyn 2.25 Gm/50 Ml Ivpb) 2.25 gm in 50 mls @ 100 mls/hr IVPB Q8HR [facility] Stop: 01/11/18 17:01 Last Admin: 12/16/17 16:54 Dose: 50 mls Potassium Chloride 20 meq/ (Dextrose/Water) 1,010 mls @ 100 mls/hr IV .Q10H6M [facility] Stop: 01/11/18 23:01 Last Admin: 12/16/17 16:53 Dose: 1,010 mls Vancomycin HCl (Vancomycin 1 Gm/250 Ml Ns Ivpb) 1 gm in 250 mls @ 166.667 mls/ hr IV Q48H [facility]; Protocol Stop: 01/15/18 13:01 Last Admin: 12/16/17 13:00 Dose: 250 mls Insulin Human Regular (Novolin -R) 0 unit SQ ACHS [facility]; Protocol Stop: 01/14/18 11:31 Last Admin: 12/16/17 16:07 Dose: Not Given Ondansetron HCl (Zofran) 4 mg IV Q6HP PRN PRN Reason: NAUSEA / VOMITING Stop: 01/11/18 12:45 Sodium Bicarbonate (Sodium Bicarb 325 Mg) 650 mg PO QID [facility] Stop: 01/12/18 17:46 Last Admin: 12/16/17 21:21 Dose: 650 mg Sodium Chloride (Normal Saline Flush) 10 ml IV BID [facility] Stop: 01/11/18 21:01 Last Admin: 12/16/17 21:22 Dose: 10 ml Tramadol HCl (Ultram) 50 mg PO TID PRN PRN Reason: PAIN MILD TO MODERATE Stop: 01/11/18 17:07 Microbiology Results 12/12/17 10:20 Blood - Blood Aerobic Blood Culture - Preliminary No growth in 24 hours. 12/12/17 10:20 Blood - Blood Anaerobic Blood Culture - Preliminary No growth in 24 hours. Assessment/ Plan: Nephrology. No acute events overnight. CPS stable without CP or SOB. Limited IH/ ROS due to dementia. Vitals, medications, blood work and imaging reviewed in the chart. General: Alert, Cooperative, Cachectic HEENT: Atraumatic Neck: Supple Respiratory: Clear to auscultation bilaterally, Normal air movement Cardiovascular: No edema, Regular rate/rhythm Gastrointestinal: Hypoactive, Soft and benign Musculoskeletal: No clubbing, No warmth Integumentary: No rashes, No cyanosis Neurological: Normal speech Laboratory Data (last 24 hrs) 12/12/17 11:42: PT 11.6, INR 0.98, APTT 25.9 12/12/17 11:42: WBC 15.3 H D, Hgb 7.8 L*, Hct 23.1 L, Plt Count 317 12/12/17 11:42: B-Natriuretic Peptide 3136 H 12/12/17 11:42: Sodium 146 H, Potassium 2.4 L*, BUN 102 H, Creatinine 2.37 H, Glucose 108, Magnesium 1.3 L*, Total Bilirubin 0.5, AST 20, ALT 12, Alkaline Phosphatase 125 H, Lipase 55 H Imagings Data: EXAM DESCRIPTION: CT - Abdomen Pelvis Wo Contrast - 12/12/2017 11:10 am CLINICAL HISTORY: Abdominal pain. Diarrhea COMPARISON: None TECHNIQUE: CT imaging of the abdomen and pelvis was performed without contrast. Solid organ, bowel and vascular assessment is limited due to lack of IV and oral contrast. All CT scans are performed using dose optimization technique as appropriate and may include automated exposure control or mA/KV adjustment according to patient size. FINDINGS: Small bilateral pleural effusions are present. Mild linear atelectasis is noted in both lung bases. The liver demonstrates no focal mass or biliary dilatation mild free fluid along the right liver edge is seen. A demonstrates mild free fluid along the inferior margin.The pancreas, adrenal glands and kidneys are within normal limits. The bulb of the gastrostomy tube is along the tract between the stomach in the skin. It is not within the stomach lumen. No bowel obstruction, free air, or abscess. Mild free fluid is seen in the pelvis. Aortoiliac atherosclerosis. The appendix is normal. Prominent degenerative changes present in both hips.Generalized anasarca pattern is seen. IMPRESSION: Small bilateral pleural effusions are present with mild free fluid in the abdomen and generalized anasarca pattern. Bulb of the feeding tube as detailed above is not within the stomach but rather in subcutaneous tissues. Conclusions/Impression: A/ CARMEN likely due to hypovolemia. CKD IV. Acidosis. Hypernatremia/ Dehydration. Hypokalemia. 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 Systolic CHF, chronic. Anemia in chronic illness. Hypomagnesemia. Moderate protein malnutrition/ Cachexia. P/ Continue current POC and Medications. Continue IVF. IV magnesium as needed. Transfuse PRBC as needed. No NSAIDs. AM labs. Daily weight.
[2017-12-17] MEDS: PIPER/TAZO/NS 2.25gm 2.25 GM/50 ML BAG IVPB SCH ×3 (01:24→17:42)
[2017-12-17 05:17] LABS: Absolute Lymphocytes (CBC) 1.6 K/uL (0.7-4.9); Absolute Monocytes 0.8 K/uL (0.1-1.3); Absolute Neutrophil 7.8 K/uL (1.8-8.0); Basophils % 0.5 % (0-1.3); Hematocrit 22.7 % (36.0-45.0); Lymphocytes % 14.7 % (15.3-44.8); MCH 30.5 pg (27.0-35.0); MCV 91.4 fL (80-100); MPV 9.8 fL (7.6-11.3); Monocytes % 7.6 % (3.3-12.3); RBC Red Blood Cell Count 2.48 M/uL (3.86-4.86)
[2017-12-17 05:32] LABS: Magnesium 1.8 mg/dL (1.8-2.5); Potassium 4.9 mEq/L (3.6-5.0)
[2017-12-17] MEDS ORDERED: MAGNESIUM SULFATE 1 gm IVPB 1 GM/100 ML BAG IV ONE (06:40)
[2017-12-17] MEDS: D5W 1,000 ML with POTASSIUM CL 20 MEQ IV SCH ×2 (07:21)
[2017-12-17] MEDS: NEPRO 1,000 ML BOT FT SCH ×3 (09:00→20:57)
[2017-12-17] MEDS: FUROSEMIDE 40 MG/4 ML VIAL IV SCH (09:50)
[2017-12-17] MEDS: CARVEDILOL 6.25 MG TAB PO SCH ×2 (09:51→20:56)
[2017-12-17] MEDS: INSULIN -REGULAR HUMAN 50 UNIT/0.5 ML ML SQ SCH ×4 (09:51→21:00)
[2017-12-17] MEDS: SODIUM BICARB 325 MG TAB PO SCH ×4 (09:51→20:57)
[2017-12-17] MEDS: DIGOXIN 0.125 MG TABLET PO SCH (09:52)
[2017-12-17] MEDS: ASPIRIN EC 81 MG TAB PO SCH (09:52)
[2017-12-17] MEDS: CLOPIDOGREL 75 MG TABLET PO SCH (09:52)
[2017-12-17] MEDS: ENOXAPARIN 30 MG/0.3 ML SQ SCH (17:42)
--- NOTE | 2017-12-17 17:43 | CON ---
History Of Present Illness: This is an 82-year-old female. The patient is consulted for bilateral h eel ulcers. The patient came in initially for management of her diabetes, congestive heart failure, atrial fibrillation. The patient also has a history of osteomyelitis to the right foot region. Marvin es any headache, nausea, vomiting, chest pain, abdominal pain, constipation, or diarrhea. Does not l sharlene the food and not able to eat well. Past Medical History: Atrial fibrillation, coronary artery disease, hypertension, type 2 diabetes me llitus, chronic renal disease, peripheral vascular disease, and diabetic foot ulcer, pressure ulcer t o the heels, AICD placement, congestive heart failure. Family History: Diabetes. Social History: Nonsmoker, nondrinker. Medications: Include Zosyn and vancomycin. Review of Systems: A 10-point review was performed. Physical Examination: General: This is an 82-year-old female, lying in bed, not in any acute cardiopulmonary distress. Vital Signs: Temperature 99.3, pulse 60, respirations 18, blood pressure 168/77. HEENT: Unremarkable. Neck: Supple. Lungs: Basal crackles. Heart: S1, S2. Regular. Abdomen: Soft, nontender. Bowel sounds positive. Extremities: Trace edema, right heel and left heel ulceration noted with excessive discharge on the dressing also noted. Recommendation: We will recommend to apply silver alginate to the heel wound, stage III heel wounds on both sides. Continue IV antibiotic for osteomyelitis of her right heel, stage III heel ulcer, oleg ramana alginate offloading and continue antibiotic for 6 weeks total duration. Consider long-term acute care. We will follow the patient as needed. Thank you Dr. Mccall for consult. JAS/OJSHUA Voice ID: [id number] Report ID: [id number]
--- NOTE | 2017-12-17 18:04 | PN ---
Date of Progress Note: 12/17/2017 Subjective: The patient seen and examined, chart reviewed, and case discussed with RN. The patient is demented, and unable to provide much history. No new acute events reported by nurses overnight. Review of Systems: Limited due to the patient's medical conditions. Medications: Reviewed. Objective: Vital Signs: Temperature 99.3, heart rate 60, blood pressure 158/77, respirations 18, an d O2 99% on 2 L via nasal cannula. General: Awake, alert, oriented x2, in some mild distress. Elderly female. CV: S1, S2. Regular rate and rhythm. Peripheral pulses present. Respiratory: Moving air well bilaterally. No wheezing. No stridor or use of accessory muscles Mily rointestinal: Abdomen is soft, nontender, nondistended. Positive bowel sounds. No guarding or rigi dity. Extremities: No clubbing, cyanosis, or edema. Skin: Right lower extremity abrasion, left heel wound bandaged. Neurologic: Nonfocal. Laboratory Data: Sodium 134, potassium 4.9, chloride 110, CO2 16, BUN 75, creatinine 2.45, glucose 1 82, calcium 8.8, and magnesium 1.8. WBC 10.7, H and H 7.6, 22.7, and platelets 256. Blood cultures negative. Stool culture and sensitivity pending. Assessment: An 82-year-old female with; 1.Acute on chronic systolic heart failure. We will continue diuresis. Continue IV Lasix. Procardi a is discontinued and Coreg increased. Adjust Lasix dose. Repeat chest x-ray showing improvement. 2.Atrial fibrillation, chronic, not on anticoagulation due to risk of fall and bleeding. 3.Hypokalemia, replace. We will monitor. 4.Anemia, normocytic normochromic. Anemia is secondary to anemia of chronic disease. Continue to m onitor. Transfuse if less than 7. Guaiac-negative stool. 5.Diabetic foot ulcer on the right, black eschar noted. Cannot have MRI due to pacemaker defibrilla tor. The patient noncooperative to have bone scan. Dr. Santiago does not plan any intervention at this time. We will follow up with the Infectious Disease recommendation. May be able to be treated with antibiotics and wound care as outpatient. 6.Osteomyelitis. Again, MRI cannot be done. Bone scan has been refused by the patient. Awaiting I D recommendations for antibiotic therapy duration. 7.PEG tube dysfunction, adjusted. Repeat x-ray shows Gastrografin flow and has PEG tube in place. 8.Acute versus acute on chronic kidney injury. Creatinine around baseline, improved. Appreciate Ne phrology recommendations. 9.Coronary artery disease, [place] artery and council heart without angina, stable. 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 11.Essential hypertension, stable. Medications adjusted. 12.Hypomagnesemia, replace and monitor. 13.Chronic kidney disease stage 4. 14.Malnutrition. Dietary consultation. 15.Pleural effusion, improving on chest x-ray. 16.Anasarca. Continue diuretics. 17.Urinary tract infection. Culture negative. 18.Hypernatremia, resolved. 19.Diabetes mellitus type 2 with long-term use of insulin. Hemoglobin A1c is 6%. We will continue sliding scale insulin. 20.Status post AICD. Plan: Follow up on Infectious Disease recommendations for antibiotics. Discharge planning back to [facility] home soon. GWEN Voice ID: [id number] Report ID: [id number]
[2017-12-17] MEDS: HYDROCODONE/APAP 7.5/325 MG TAB PO PRN (22:23)
[2017-12-18] MEDS: PIPER/TAZO/NS 2.25gm 2.25 GM/50 ML BAG IVPB SCH ×3 (00:54→17:36)
[2017-12-18 05:08] LABS: Absolute Lymphocytes (CBC) 1.5 K/uL (0.7-4.9); Absolute Monocytes 0.9 K/uL (0.1-1.3); Albumin 1.9 g/dL (3.2-5.5); Basophils % 0.4 % (0-1.3); Bilirubin Total 0.5 mg/dL (0.3-1.2); Eosinophils % 4.7 % (0-4.4); Hematocrit 24.8 % (36.0-45.0); Lymphocytes % 12.6 % (15.3-44.8); MCH 29.4 pg (27.0-35.0); MCV 91.9 fL (80-100); MPV 9.6 fL (7.6-11.3); Monocytes % 7.4 % (3.3-12.3); Potassium 4.6 mEq/L (3.6-5.0); Protein, Total 6.1 g/dL (6.0-8.3); RBC Red Blood Cell Count 2.69 M/uL (3.86-4.86)
[2017-12-18] MEDS: INSULIN -REGULAR HUMAN 50 UNIT/0.5 ML ML SQ SCH ×4 (07:30→20:10)
[2017-12-18] MEDS: NEPRO 1,000 ML BOT FT SCH (09:00)
[2017-12-18] MEDS: SODIUM BICARB 325 MG TAB PO SCH ×4 (09:00→20:11)
[2017-12-18] MEDS: CARVEDILOL 6.25 MG TAB PO SCH ×2 (09:44→20:20)
[2017-12-18] MEDS: FUROSEMIDE 40 MG/4 ML VIAL IV SCH (09:44)
[2017-12-18] MEDS: DIGOXIN 0.125 MG TABLET PO SCH (09:44)
[2017-12-18] MEDS: ASPIRIN EC 81 MG TAB PO SCH (09:44)
[2017-12-18] MEDS: CLOPIDOGREL 75 MG TABLET PO SCH (09:45)
--- NOTE | 2017-12-18 12:32 | RAD REPORT ---
EXAM DESCRIPTION: RAD - ENTEROSTOMY TUBE CHECK W/CONTR - 12/18/2017 12:23 pm FINDINGS: Single image of the abdomen was obtained following retrograde injection of contrast via th e enterostomy tube. Exam is degraded by motion. All of the injected contrast appears to be contained within the lumen of the stomach and duodenal bulb. The contrast material in the left mid abdomen is probably remnant cont rast from the PEG tube check of December 12.
[2017-12-18] MEDS: VANCOMYCIN/NS 1 gm 1 GM/250 ML BAG IV SCH (12:59)
--- NOTE | 2017-12-18 16:28 | PN ---
Date of Progress Note: 12/18/2017 Subjective: The patient is seen and examined. Chart reviewed and case discussed with RN and GI, Dr. Mcdowell. The patient had no acute events overnight. Review of Systems: Limited due to the patient's medical condition. Medications: Reviewed. Physical Examination: Vital Signs: Temperature 98.7, heart rate 81, blood pressure 177/86, respirations 18, O2 100% on 2 L via nasal cannula. General: Awake, alert, oriented x2. No acute distress. Elderly female, somewhat ill-appearing. CV: S1, S2. No murmurs. Pulses weak bilaterally. Respiratory: Moving air well bilaterally. No wheezing. Gastrointestinal: Abdomen is soft, nontender, nondistended. PEG tube in place. Extremities: No clubbing, cyanosis, edema. Neurologic: Nonfocal. Laboratory Data: Sodium 137, potassium 4.6, chloride 111, CO2 17, BUN 74, creatinine 2.61, glucose 1 29, calcium 9.1, magnesium 2, albumin 1.9. WBC 12, H and H 7.9 and 24.8, platelets 263, neutrophils 74.9%. Blood cultures, no growth. Final stool cultures, 2+ yeast. No Salmonella, Shigella, or [place] ylobacter. Reduced normal fecal jc. Assessment And Plan: An 82-year-old female with: 1.Acute on chronic systolic heart failure. Continue current diuresis. Repeat chest x-ray did show improvement. 2.Atrial fibrillation, chronic, not on anticoagulation due to risk of fall and bleed. 3.Hypokalemia, replace and monitor. 4.Normocytic normochromic anemia, likely anemia of chronic disease. Monitor H and H, transfuse if l ess than 7. Stool culture negative. 5.Diabetic foot ulcer. MRI unable to be done due to pacemaker defibrillator and noncooperative with bone scan. No intervention planned by Dr. Santiago. ID recommends 6 weeks of IV antibiotics and wound care. 6.Osteomyelitis. MRI and bone scan unable to be done due to reasons as stated above. The patient w ill need long-term IV antibiotics. 7.PEG tube dysfunction, nonfunctioning. At this time, we will hold PEG tube feeds and consult GI. Spoke with Dr. Mcdowell, who will evaluate the patient. We will repeat Gastrografin flow. 8.Acute versus acute on chronic kidney injury. Creatinine around baseline. Nephrology on board. 9.Coronary artery disease, [place] artery and [place] heart without angina, stable. 10.Dementia, Alzheimer type, late onset, without behavioral disturbance. 11.Essential hypertension, stable. 12.Hypomagnesemia, replace and monitor. 13.Chronic kidney disease, stage 4. 14.Malnutrition. 15.Pleural effusion, improved. 16.Anasarca. Continue diuretics. Improving. 17.Urinary tract infection. Cultures negative. 18.Hypernatremia, resolved. 19.Diabetes mellitus type 2 with long-term use of insulin. Hemoglobin A1c 6%. Continue sliding sca le. 20.Status post AICD. Plan: Set up long-term IV antibiotics. Discharge planning. /JOSHUA Voice ID: [id number] Report ID: [id number]
[2017-12-18] MEDS: ENOXAPARIN 30 MG/0.3 ML SQ SCH (17:36)
--- NOTE | 2017-12-18 19:53 | P.PN ---
Date of Service: 12/17/17 Vital Signs Temp Pulse Resp BP Pulse Ox 98.9 F 80 18 168/72 H 96 12/18/17 16:00 12/18/17 16:00 12/18/17 16:00 12/18/17 16:00 12/18/17 16:00 Medications Acetaminophen (Tylenol -Extra Strength) 500 mg PO Q4HP PRN PRN Reason: [id number] Stop: 01/11/18 12:45 Acetaminophen (Tylenol Suppository) [address] Q6HP PRN PRN Reason: [id number] Stop: 01/11/18 12:45 Aspirin (Aspirin Ec) 81 mg PO DAILY RASHAWN Stop: 01/12/18 09:01 Last Admin: 12/18/17 09:44 Dose: 81 mg Carvedilol (Coreg) 6.25 mg PO BID RASHAWN Stop: 01/11/18 21:01 Last Admin: 12/18/17 09:44 Dose: 6.25 mg Clopidogrel Bisulfate (Plavix) 75 mg PO DAILY RASHAWN Stop: 01/12/18 09:01 Last Admin: 12/18/17 09:45 Dose: 75 mg Dextrose (Dextrose 50% Syringe) 12.5 gm IV PRN PRN PRN Reason: HYPOGLYCEMIA PROTOCOL Stop: 01/11/18 17:38 Last Admin: 12/15/17 07:12 Dose: 12.5 gm Digoxin (Lanoxin) 0.125 mg PO DAILY RASHAWN Stop: 01/12/18 09:01 Last Admin: 12/18/17 09:44 Dose: 0.125 mg Enoxaparin Sodium (Lovenox 30 Mg Inj) 30 mg SQ DAILY 5 PM RASHAWN Stop: 01/12/18 17:01 Last Admin: 12/18/17 17:36 Dose: 30 mg Furosemide (Lasix) 40 mg IV DAILY RASHAWN Stop: 01/15/18 09:01 Last Admin: 12/18/17 09:44 Dose: 40 mg Glucagon (Glucagen) 1 mg IM 1X PRN PRN Reason: HYPOGLYCEMIA Stop: 01/11/18 17:38 Piperacillin/Tazobactam/Sod Chloride (Zosyn 2.25 Gm/50 Ml Ivpb) 2.25 gm in 50 mls @ 100 mls/hr IVPB Q8HR RASHAWN Stop: 01/11/18 17:01 Last Admin: 12/18/17 17:36 Dose: 50 mls Vancomycin HCl (Vancomycin 1 Gm/250 Ml Ns Ivpb) 1 gm in 250 mls @ 166.667 mls/ hr IV Q48H [facility]; Protocol Stop: 01/18/18 13:01 Insulin Human Regular (Novolin -R) 0 unit SQ ACHS [facility]; Protocol Stop: 01/14/18 11:31 Last Admin: 12/18/17 16:20 Dose: Not Given Ondansetron HCl (Zofran) 4 mg IV Q6HP PRN PRN Reason: NAUSEA / VOMITING Stop: 01/11/18 12:45 Sodium Bicarbonate (Sodium Bicarb 325 Mg) 1,300 mg PO QID [facility] Stop: 01/16/18 09:01 Last Admin: 12/18/17 16:36 Dose: Not Given Sodium Chloride (Normal Saline Flush) 10 ml IV BID [facility] Stop: 01/11/18 21:01 Last Admin: 12/18/17 09:45 Dose: 10 ml Microbiology Results 12/12/17 10:20 Blood - Blood Aerobic Blood Culture - Final No growth in 5 days. 12/12/17 10:20 Blood - Blood Anaerobic Blood Culture - Final No growth in 5 days. Assessment/ Plan: Nephrology. No acute events overnight. CPS stable without CP or SOB. Limited IH/ ROS due to dementia. Vitals, medications, blood work and imaging reviewed in the chart. General: Alert, Cooperative, Cachectic HEENT: Atraumatic Neck: Supple Respiratory: Clear to auscultation bilaterally, Normal air movement Cardiovascular: No edema, Regular rate/rhythm Gastrointestinal: Hypoactive, Soft and benign Musculoskeletal: No clubbing, No warmth Integumentary: No rashes, No cyanosis Neurological: Normal speech Laboratory Data (last 24 hrs) 12/12/17 11:42: PT 11.6, INR 0.98, APTT 25.9 12/12/17 11:42: WBC 15.3 H D, Hgb 7.8 L*, Hct 23.1 L, Plt Count 317 12/12/17 11:42: B-Natriuretic Peptide 3136 H 12/12/17 11:42: Sodium 146 H, Potassium 2.4 L*, BUN 102 H, Creatinine 2.37 H, Glucose 108, Magnesium 1.3 L*, Total Bilirubin 0.5, AST 20, ALT 12, Alkaline Phosphatase 125 H, Lipase 55 H Imagings Data: EXAM DESCRIPTION: CT - Abdomen Pelvis Wo Contrast - 12/12/2017 11:10 am CLINICAL HISTORY: Abdominal pain. Diarrhea COMPARISON: None TECHNIQUE: CT imaging of the abdomen and pelvis was performed without contrast. Solid organ, bowel and vascular assessment is limited due to lack of IV and oral contrast. All CT scans are performed using dose optimization technique as appropriate and may include automated exposure control or mA/KV adjustment according to patient size. FINDINGS: Small bilateral pleural effusions are present. Mild linear atelectasis is noted in both lung bases. The liver demonstrates no focal mass or biliary dilatation mild free fluid along the right liver edge is seen. A demonstrates mild free fluid along the inferior margin.The pancreas, adrenal glands and kidneys are within normal limits. The bulb of the gastrostomy tube is along the tract between the stomach in the skin. It is not within the stomach lumen. No bowel obstruction, free air, or abscess. Mild free fluid is seen in the pelvis. Aortoiliac atherosclerosis. The appendix is normal. Prominent degenerative changes present in both hips.Generalized anasarca pattern is seen. IMPRESSION: Small bilateral pleural effusions are present with mild free fluid in the abdomen and generalized anasarca pattern. Bulb of the feeding tube as detailed above is not within the stomach but rather in subcutaneous tissues. Conclusions/Impression: A/ CARMEN likely due to hypovolemia. CKD IV. Acidosis. Hypernatremia/ Dehydration. Hypokalemia. 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 Systolic CHF, chronic. Anemia in chronic illness. Hypomagnesemia. Moderate protein malnutrition/ Cachexia. P/ Continue current POC and Medications. DC IVF. Increase NaBicarb. Follow up tube feed placement. IV magnesium as needed. Transfuse PRBC as needed. No NSAIDs. AM labs. Daily weight.
--- NOTE | 2017-12-18 19:58 | P.PN ---
Date of Service: 12/18/17 Vital Signs Temp Pulse Resp BP Pulse Ox 98.9 F 80 18 168/72 H 96 12/18/17 16:00 12/18/17 16:00 12/18/17 16:00 12/18/17 16:00 12/18/17 16:00 Medications Acetaminophen (Tylenol -Extra Strength) 500 mg PO Q4HP PRN PRN Reason: [id number] Stop: 01/11/18 12:45 Acetaminophen (Tylenol Suppository) 650 mg ME Q6HP PRN PRN Reason: [id number] Stop: 01/11/18 12:45 Aspirin (Aspirin Ec) 81 mg PO DAILY RASHAWN Stop: 01/12/18 09:01 Last Admin: 12/18/17 09:44 Dose: 81 mg Carvedilol (Coreg) 6.25 mg PO BID RASHAWN Stop: 01/11/18 21:01 Last Admin: 12/18/17 09:44 Dose: 6.25 mg Clopidogrel Bisulfate (Plavix) 75 mg PO DAILY RASHAWN Stop: 01/12/18 09:01 Last Admin: 12/18/17 09:45 Dose: 75 mg Dextrose (Dextrose 50% Syringe) 12.5 gm IV PRN PRN PRN Reason: HYPOGLYCEMIA PROTOCOL Stop: 01/11/18 17:38 Last Admin: 12/15/17 07:12 Dose: 12.5 gm Digoxin (Lanoxin) 0.125 mg PO DAILY RASHAWN Stop: 01/12/18 09:01 Last Admin: 12/18/17 09:44 Dose: 0.125 mg Enoxaparin Sodium (Lovenox 30 Mg Inj) 30 mg SQ DAILY 5 PM RASHAWN Stop: 01/12/18 17:01 Last Admin: 12/18/17 17:36 Dose: 30 mg Furosemide (Lasix) 40 mg IV DAILY RASHAWN Stop: 01/15/18 09:01 Last Admin: 12/18/17 09:44 Dose: 40 mg Glucagon (Glucagen) 1 mg IM 1X PRN PRN Reason: HYPOGLYCEMIA Stop: 01/11/18 17:38 Piperacillin/Tazobactam/Sod Chloride (Zosyn 2.25 Gm/50 Ml Ivpb) 2.25 gm in 50 mls @ 100 mls/hr IVPB Q8HR RASHAWN Stop: 01/11/18 17:01 Last Admin: 12/18/17 17:36 Dose: 50 mls Vancomycin HCl (Vancomycin 1 Gm/250 Ml Ns Ivpb) 1 gm in 250 mls @ 166.667 mls/ hr IV Q48H [facility]; Protocol Stop: 01/18/18 13:01 Insulin Human Regular (Novolin -R) 0 unit SQ ACHS [facility]; Protocol Stop: 01/14/18 11:31 Last Admin: 12/18/17 16:20 Dose: Not Given Ondansetron HCl (Zofran) 4 mg IV Q6HP PRN PRN Reason: NAUSEA / VOMITING Stop: 01/11/18 12:45 Sodium Bicarbonate (Sodium Bicarb 325 Mg) 1,300 mg PO QID [facility] Stop: 01/16/18 09:01 Last Admin: 12/18/17 16:36 Dose: Not Given Sodium Chloride (Normal Saline Flush) 10 ml IV BID [facility] Stop: 01/11/18 21:01 Last Admin: 12/18/17 09:45 Dose: 10 ml Microbiology Results 12/12/17 10:20 Blood - Blood Aerobic Blood Culture - Final No growth in 5 days. 12/12/17 10:20 Blood - Blood Anaerobic Blood Culture - Final No growth in 5 days. Assessment/ Plan: Nephrology. No acute events overnight. CPS stable without CP or SOB. Limited IH/ ROS due to dementia. Vitals, medications, blood work and imaging reviewed in the chart. General: Alert, Cooperative, Cachectic HEENT: Atraumatic Neck: Supple Respiratory: Clear to auscultation bilaterally, Normal air movement Cardiovascular: No edema, Regular rate/rhythm Gastrointestinal: Hypoactive, Soft and benign Musculoskeletal: No clubbing, No warmth Integumentary: No rashes, No cyanosis Neurological: Normal speech Laboratory Data (last 24 hrs) 12/12/17 11:42: PT 11.6, INR 0.98, APTT 25.9 12/12/17 11:42: WBC 15.3 H D, Hgb 7.8 L*, Hct 23.1 L, Plt Count 317 12/12/17 11:42: B-Natriuretic Peptide 3136 H 12/12/17 11:42: Sodium 146 H, Potassium 2.4 L*, BUN 102 H, Creatinine 2.37 H, Glucose 108, Magnesium 1.3 L*, Total Bilirubin 0.5, AST 20, ALT 12, Alkaline Phosphatase 125 H, Lipase 55 H Imagings Data: EXAM DESCRIPTION: CT - Abdomen Pelvis Wo Contrast - 12/12/2017 11:10 am CLINICAL HISTORY: Abdominal pain. Diarrhea COMPARISON: None TECHNIQUE: CT imaging of the abdomen and pelvis was performed without contrast. Solid organ, bowel and vascular assessment is limited due to lack of IV and oral contrast. All CT scans are performed using dose optimization technique as appropriate and may include automated exposure control or mA/KV adjustment according to patient size. FINDINGS: Small bilateral pleural effusions are present. Mild linear atelectasis is noted in both lung bases. The liver demonstrates no focal mass or biliary dilatation mild free fluid along the right liver edge is seen. A demonstrates mild free fluid along the inferior margin.The pancreas, adrenal glands and kidneys are within normal limits. The bulb of the gastrostomy tube is along the tract between the stomach in the skin. It is not within the stomach lumen. No bowel obstruction, free air, or abscess. Mild free fluid is seen in the pelvis. Aortoiliac atherosclerosis. The appendix is normal. Prominent degenerative changes present in both hips.Generalized anasarca pattern is seen. IMPRESSION: Small bilateral pleural effusions are present with mild free fluid in the abdomen and generalized anasarca pattern. Bulb of the feeding tube as detailed above is not within the stomach but rather in subcutaneous tissues. Conclusions/Impression: A/ CARMEN likely due to hypovolemia. CKD IV. Acidosis. Hypernatremia/ Dehydration. Hypokalemia. 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 Systolic CHF, chronic. Anemia in chronic illness. Hypomagnesemia. Moderate protein malnutrition/ Cachexia. P/ Continue current POC and Medications. Will restart IVF as needed. Advance tube feeds once PEG is available. Agree with abx for osteomyelitis. IV magnesium as needed. Transfuse PRBC as needed. No NSAIDs. AM labs. Daily weight.
--- NOTE | 2017-12-18 21:56 | CON ---
Reason For Consultation: PEG tube related problem. History Of Present Illness: Ms. Frias is an 82-year-old female, who got admitted with multiple med ical problems including chronic renal failure, cardiac failure, past history of dementia, feeding dif ficulty. Apparently her tube is not functioning probably as a result, I have been consulted. The patient could not verbalize any history. Physical Examination: General: No acute distress noted. Hemodynamic respiratory profile within normal range. Abdomen: Soft, nontender, nondistended. PEG tube appears to be in reasonable shape. Neurologic: She is awake, alertness and orientation cannot be judged. Assessment, Plan, And Recommendation: Gastrografin study seems to be fine, therefore PEG tube could be used. I do not see any outside problem with that other than somewhat leak. You do usual care and can resume feeding. We will sign off the patient. MUSA/JOSHUA Voice ID: [id number] Report ID: [id number]
[2017-12-19] MEDS: PIPER/TAZO/NS 2.25gm 2.25 GM/50 ML BAG IVPB SCH ×3 (00:38→17:00)
[2017-12-19 06:59] LABS: Albumin 1.8 g/dL (3.2-5.5); Bilirubin Total 0.7 mg/dL (0.3-1.2); Phosphorus 4.3 mg/dL (2.5-4.3); Protein, Total 5.8 g/dL (6.0-8.3); Uric Acid 11.8 mg/dL (2.6-8.0)
[2017-12-19 07:02] LABS: Absolute Lymphocytes (CBC) 1.3 K/uL (0.7-4.9); Absolute Monocytes 0.8 K/uL (0.1-1.3); Absolute Neutrophil 9.3 K/uL (1.8-8.0); Basophils % 0.4 % (0-1.3); Eosinophils % 2.6 % (0-4.4); Lymphocytes % 11.4 % (15.3-44.8); MCH 30.7 pg (27.0-35.0); MCV 93.4 fL (80-100); MPV 9.6 fL (7.6-11.3); Monocytes % 6.6 % (3.3-12.3); RBC Red Blood Cell Count 2.68 M/uL (3.86-4.86)
[2017-12-19 07:06] LABS: Potassium 4.9 mEq/L (3.6-5.0)
[2017-12-19] MEDS: INSULIN -REGULAR HUMAN 50 UNIT/0.5 ML ML SQ SCH ×4 (07:30→21:00)
[2017-12-19] MEDS ORDERED: SODIUM BICARB 50 MEQ/50ML VIAL IV ONE (07:52)
[2017-12-19] MEDS: NEPRO 1,000 ML BOT FT SCH ×4 (09:00→20:24)
[2017-12-19 09:42] LABS: Arterial Blood Carboxyhemoglob 1.9 % (0-1.5); Blood Gas Oxyhemoglobin 96.2 % (94-97); Blood O2 Saturation 98.5 % (92-98.5)
[2017-12-19] MEDS: DIGOXIN 0.125 MG TABLET PO SCH (10:26)
[2017-12-19] MEDS: CARVEDILOL 6.25 MG TAB PO SCH ×2 (10:26→20:04)
[2017-12-19] MEDS: FUROSEMIDE 40 MG/4 ML VIAL IV SCH (10:26)
[2017-12-19] MEDS: ASPIRIN EC 81 MG TAB PO SCH (10:26)
[2017-12-19] MEDS: SODIUM BICARB 325 MG TAB PO SCH ×4 (10:27→20:03)
[2017-12-19] MEDS: CLOPIDOGREL 75 MG TABLET PO SCH (10:27)
[2017-12-19] MEDS ORDERED: FLUCONAZOLE 100 MG TAB PO ONE (12:43)
--- NOTE | 2017-12-19 12:51 | P.PN ---
Date of Service: 12/19/17 Vital Signs Temp Pulse Resp BP Pulse Ox 97.6 F 86 18 154/85 H 90 L 12/19/17 08:00 12/19/17 08:00 12/19/17 08:00 12/19/17 08:00 12/19/17 08:00 Medications Acetaminophen (Tylenol -Extra Strength) 500 mg PO Q4HP PRN PRN Reason: [id number] Stop: 01/11/18 12:45 Acetaminophen (Tylenol Suppository) 650 mg AR Q6HP PRN PRN Reason: [id number] Stop: 01/11/18 12:45 Aspirin (Aspirin Ec) 81 mg PO DAILY RASHAWN Stop: 01/12/18 09:01 Last Admin: 12/19/17 10:26 Dose: 81 mg Carvedilol (Coreg) 6.25 mg PO BID RASHAWN Stop: 01/11/18 21:01 Last Admin: 12/19/17 10:26 Dose: 6.25 mg Clopidogrel Bisulfate (Plavix) 75 mg PO DAILY RASHAWN Stop: 01/12/18 09:01 Last Admin: 12/19/17 10:27 Dose: 75 mg Dextrose (Dextrose 50% Syringe) 12.5 gm IV PRN PRN PRN Reason: HYPOGLYCEMIA PROTOCOL Stop: 01/11/18 17:38 Last Admin: 12/15/17 07:12 Dose: 12.5 gm Digoxin (Lanoxin) 0.125 mg PO DAILY RASHAWN Stop: 01/12/18 09:01 Last Admin: 12/19/17 10:26 Dose: 0.125 mg Enoxaparin Sodium (Lovenox 30 Mg Inj) 30 mg SQ DAILY 5 PM RASHAWN Stop: 01/12/18 17:01 Last Admin: 12/18/17 17:36 Dose: 30 mg Enteral Nutritional Formula (Nepro) 237 ml FT TID RASHAWN Stop: 01/18/18 09:01 Last Admin: 12/19/17 09:00 Dose: 237 ml Furosemide (Lasix) 40 mg IV DAILY RASHAWN Stop: 01/15/18 09:01 Last Admin: 12/19/17 10:26 Dose: 40 mg Glucagon (Glucagen) 1 mg IM 1X PRN PRN Reason: HYPOGLYCEMIA Stop: 01/11/18 17:38 Piperacillin/Tazobactam/Sod Chloride (Zosyn 2.25 Gm/50 Ml Ivpb) 2.25 gm in 50 mls @ 100 mls/hr IVPB Q8HR [facility] Stop: 01/11/18 17:01 Last Admin: 12/19/17 10:27 Dose: 50 mls Vancomycin HCl (Vancomycin 1 Gm/250 Ml Ns Ivpb) 1 gm in 250 mls @ 166.667 mls/ hr IV Q48H [facility]; Protocol Stop: 01/18/18 13:01 Insulin Human Regular (Novolin -R) 0 unit SQ ACHS [facility]; Protocol Stop: 01/14/18 11:31 Last Admin: 12/19/17 11:30 Dose: Not Given Ondansetron HCl (Zofran) 4 mg IV Q6HP PRN PRN Reason: NAUSEA / VOMITING Stop: 01/11/18 12:45 Sodium Bicarbonate (Sodium Bicarb 325 Mg) 1,300 mg PO QID [facility] Stop: 01/16/18 09:01 Last Admin: 12/19/17 10:27 Dose: 1,300 mg Sodium Chloride (Normal Saline Flush) 10 ml IV BID [facility] Stop: 01/11/18 21:01 Last Admin: 12/19/17 10:27 Dose: 10 ml Microbiology Results 12/12/17 10:20 Blood - Blood Aerobic Blood Culture - Final No growth in 5 days. 12/12/17 10:20 Blood - Blood Anaerobic Blood Culture - Final No growth in 5 days. Assessment/ Plan: Nephrology. No acute events overnight. CPS stable without CP or SOB. Limited IH/ ROS due to dementia. Vitals, medications, blood work and imaging reviewed in the chart. General: Alert, Cooperative, Cachectic HEENT: Atraumatic Neck: Supple Respiratory: Clear to auscultation bilaterally, Normal air movement Cardiovascular: No edema, Regular rate/rhythm Gastrointestinal: Hypoactive, Soft and benign Musculoskeletal: No clubbing, No warmth Integumentary: No rashes, No cyanosis Neurological: Normal speech Laboratory Data (last 24 hrs) 12/12/17 11:42: PT 11.6, INR 0.98, APTT 25.9 12/12/17 11:42: WBC 15.3 H D, Hgb 7.8 L*, Hct 23.1 L, Plt Count 317 12/12/17 11:42: B-Natriuretic Peptide 3136 H 12/12/17 11:42: Sodium 146 H, Potassium 2.4 L*, BUN 102 H, Creatinine 2.37 H, Glucose 108, Magnesium 1.3 L*, Total Bilirubin 0.5, AST 20, ALT 12, Alkaline Phosphatase 125 H, Lipase 55 H Imagings Data: EXAM DESCRIPTION: CT - Abdomen Pelvis Wo Contrast - 12/12/2017 11:10 am CLINICAL HISTORY: Abdominal pain. Diarrhea COMPARISON: None TECHNIQUE: CT imaging of the abdomen and pelvis was performed without contrast. Solid organ, bowel and vascular assessment is limited due to lack of IV and oral contrast. All CT scans are performed using dose optimization technique as appropriate and may include automated exposure control or mA/KV adjustment according to patient size. FINDINGS: Small bilateral pleural effusions are present. Mild linear atelectasis is noted in both lung bases. The liver demonstrates no focal mass or biliary dilatation mild free fluid along the right liver edge is seen. A demonstrates mild free fluid along the inferior margin.The pancreas, adrenal glands and kidneys are within normal limits. The bulb of the gastrostomy tube is along the tract between the stomach in the skin. It is not within the stomach lumen. No bowel obstruction, free air, or abscess. Mild free fluid is seen in the pelvis. Aortoiliac atherosclerosis. The appendix is normal. Prominent degenerative changes present in both hips.Generalized anasarca pattern is seen. IMPRESSION: Small bilateral pleural effusions are present with mild free fluid in the abdomen and generalized anasarca pattern. Bulb of the feeding tube as detailed above is not within the stomach but rather in subcutaneous tissues. Conclusions/Impression: A/ CARMEN likely due to hypovolemia. CKD IV. Acidosis. Hypernatremia/ Dehydration. Hypokalemia. 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 Systolic CHF, chronic. Anemia in chronic illness. Hypomagnesemia. Moderate protein malnutrition/ Cachexia. P/ Continue current POC and Medications. Start Bicarb gtt X1 liter. Plan to start using PEG today. Agree with abx for osteomyelitis. IV magnesium as needed. Transfuse PRBC as needed. No NSAIDs. AM labs. Daily weight.
[2017-12-19] MEDS ORDERED: VANCOMYCIN/NS 1 gm 1 GM/250 ML BAG IV SCH (13:00)
[2017-12-19] MEDS ORDERED: D5W 1,000 ML with NA BICARB 8.4% 75 MEQ IV SCH ×2 (13:00)
--- NOTE | 2017-12-19 13:41 | PN ---
Date of Progress Note: 12/19/2017 Subjective: The patient is seen and examined. Chart reviewed and case discussed with RN and ID, Dr. Suarez. Daughter at the bedside. Treatment plan explained. All questions answered. The patient s tates she is having some pain, cannot tell me where. Review of Systems: Negative except as above. Medications: Reviewed. Physical Examination: Vital Signs: Temperature 97.6, heart rate 86, blood pressure 154/85, respirations 18, O2 90% on 2 L via nasal cannula. General: Awake, alert, oriented x2, in some mild distress. Elderly female, frail, somewhat ill appe aring. CV: S1, S2. Peripheral pulses present. Respiratory: Clear to auscultation bilaterally. No wheezing. Gastrointestinal: Abdomen is soft, nontender, nondistended. Positive bowel sounds. Extremities: No clubbing, cyanosis, edema. Neuro: Nonfocal. Skin: The patient has chronic wounds to the feet and heel. PEG tube site in place. Laboratory Data: Sodium 139, potassium 4.9, chloride 112, CO2 14, BUN 74, creatinine 2.68, glucose 1 05, uric acid 11.8, calcium 9.1, phosphorus 4.3, albumin 1.8. ABG; pH 7.37, pCO2 24, pO2 105, bicarb 13. WBC 11.8, H and H 8.2 and 25, platelets 294, neutrophils 79%. Blood cultures, no growth to sierra e. Stool culture and sensitivity showed 2+ yeast. Gastrografin study for PEG tube placement shows e xam degraded by motion. All the injected contrast appears to be contained within the lumen of the st omach and duodenal bulb. Contrast material in the left mid abdomen is probably remnant contrast thro ugh the PEG tube check of December 12. Assessment And Plan: An 82-year-old female with: 1.Acute on chronic systolic heart failure. We will continue with diuresis. The patient is on beta- mic. No GURDEEP inhibitor due to elevated creatinine. 2.Atrial fibrillation, chronic, not on anticoagulation due to risk of fall and bleed. 3.Hypokalemia, replace and monitor. 4.Normocytic normochromic anemia, likely anemia of chronic disease. We will monitor H and H, transf use if needed. 5.Diabetic foot ulcer. MRI unable to be done due to pacemaker and the patient uncooperative with priyanka ne scan. No intervention planned for surgery. ID recommending long-term IV antibiotics; however, no positive cultures at this time and imaging studies not able to be done. We will talk with case pedro luis quezada and social work regarding placement and IV antibiotics. 6.Osteomyelitis. Long-term IV antibiotics as needed. 7.PEG tube dysfunction. Gastrografin study shows PEG tube contrast going into the stomach lumen. G I sees no problems with it and recommends resuming feeds. 8.Acute versus acute on chronic kidney injury. Nephrology on board. Appreciate their input. We wi ll monitor creatinine. 9.Coronary artery disease, marshall artery and marshall heart without angina, stable. 10.Dementia, Alzheimer's type, late onset, without behavioral disturbance. 11.Essential hypertension, stable. 12.Hypomagnesemia, replace and monitor. 13.Malnutrition. 14.Pleural effusion, improving. 15.Anasarca, improved. Continue diuretics. 16.Urinary tract infection. Cultures negative. 17.Hypernatremia, resolved. 18.Diabetes mellitus type 2 with long-term use of insulin. We will continue sliding scale. 19.Status post AICD. 20.Gastrointestinal and deep venous thrombosis prophylaxis with PPI and Lovenox renally dosed. Plan: Discharge to [facility] with IV antibiotics. /MODL Voice ID: [id number] Report ID: [id number]
[2017-12-19] MEDS: ENOXAPARIN 30 MG/0.3 ML SQ SCH (16:27)
[2017-12-19] MEDS: ACETAMINOPHEN 500 MG TAB PO PRN (16:27)
[2017-12-20] MEDS: PIPER/TAZO/NS 2.25gm 2.25 GM/50 ML BAG IVPB SCH ×3 (00:35→16:08)
[2017-12-20] MEDS ORDERED: LORAZEPAM 0.5 MG TABLET PO ONE (04:48)
[2017-12-20] MEDS: INSULIN -REGULAR HUMAN 50 UNIT/0.5 ML ML SQ SCH ×4 (07:30→22:01)
[2017-12-20 08:30] LABS: Albumin 1.7 g/dL (3.2-5.5); Bilirubin Total 0.4 mg/dL (0.3-1.2); Protein, Total 5.3 g/dL (6.0-8.3)
[2017-12-20 08:38] LABS: Potassium 5.6 mEq/L (3.6-5.0)
[2017-12-20 08:40] LABS: Magnesium 1.9 mg/dL (1.8-2.5)
[2017-12-20] MEDS: NEPRO 1,000 ML BOT FT SCH ×3 (09:00→22:02)
[2017-12-20 09:36] LABS: Absolute Lymphocytes (CBC) 2.2 K/uL (0.7-4.9); Absolute Monocytes 1.4 K/uL (0.1-1.3); Absolute Neutrophil 9.3 K/uL (1.8-8.0); Basophils % 0.4 % (0-1.3); Eosinophils % 2.6 % (0-4.4); Hematocrit 22.1 % (36.0-45.0); Lymphocytes % 16.6 % (15.3-44.8); MCH 29.4 pg (27.0-35.0); MCV 91.2 fL (80-100); MPV 9.5 fL (7.6-11.3); Monocytes % 10.4 % (3.3-12.3); RBC Red Blood Cell Count 2.42 M/uL (3.86-4.86)
[2017-12-20] MEDS: FUROSEMIDE 40 MG/4 ML VIAL IV SCH (09:53)
[2017-12-20] MEDS: ASPIRIN EC 81 MG TAB PO SCH (09:53)
[2017-12-20] MEDS: SODIUM BICARB 325 MG TAB PO SCH ×4 (09:54→22:01)
[2017-12-20] MEDS: CARVEDILOL 6.25 MG TAB PO SCH ×2 (09:54→22:01)
[2017-12-20] MEDS: CLOPIDOGREL 75 MG TABLET PO SCH (09:54)
[2017-12-20] MEDS: DIGOXIN 0.125 MG TABLET PO SCH (09:54)
[2017-12-20] MEDS ORDERED: SOD POLYSTYREN SUL 15 GM/60 ML UCUP PO ONE (11:49)
[2017-12-20] MEDS ORDERED: LIDOCAINE 1% 20 ML MDV ONE (12:25)
[2017-12-20] MEDS ORDERED: NA CHLORIDE 0.9% 250 ML ONE (12:41)
[2017-12-20] MEDS ORDERED: VANCOMYCIN 500 MG in NA CHLORIDE 0.9% 100 ML IVPB SCH (14:00)
--- NOTE | 2017-12-20 14:03 | RAD REPORT ---
EXAM DESCRIPTION: NM - Bone Imaging Three Phase - 12/20/2017 11:23 am CLINICAL HISTORY: Left foot pain and swelling. TECHNIQUE: 25.5 millicuries Tc MDP was administered intravenously. A 3 phase bone scan of the left f oot was obtained. COMPARISON: January 2017 bone scan. FINDINGS: Increased radiotracer activity is visualized within the region of the fifth metatarsal/ph alanx on all 3 phases IMPRESSION: Increased radiotracer activity involving the fifth metatarsal/fifth phalanx compatible w ith osteomyelitis.
--- NOTE | 2017-12-20 14:37 | PN ---
Date of Progress Note: 12/20/2017 Subjective: The patient seen and examined, chart reviewed, and case discussed with the RN and case dylan churchill. Daughter and son at the bedside. Treatment plan explained. All questions answered. Family is not interested in hospice at this time. The daughter is the medical power of staff attorney. The delia ent has been refusing labs, not wanting to get out of bed, refusing physical examination, refused bon e scan multiple times. According to the daughter. The patient will agree if she tells her and she s tates that she will help the patient to be compliant. Review of Systems: Negative except as above. Medications: Reviewed. Physical Examination: Vital Signs: Temperature 98.1, heart rate 97, blood pressure 163/67, respirations 18, and O2 90% on 2 L via nasal cannula. General: Awake, alert, and oriented x2. No acute distress. Elderly female, lethargic. CV: S1, S2. No murmurs. Peripheral pulses are weak bilaterally. Respiratory: Moving air well bilaterally. No wheezing. No stridor. No use of accessory muscles. Gastrointestinal: Abdomen is soft, nontender, nondistended. Positive bowel sounds. PEG tube in chal[place] ce. Extremities: No clubbing, cyanosis, edema. Skin: Bilateral heel ulcers bandaged. Neurologic: Nonfocal. Laboratory Data: Sodium 137, potassium 5.6, chloride 111, CO2 15, BUN 75, creatinine 2.61, glucose 1 64, calcium 8.5, and magnesium 1.9. Albumin 1.7. WBC 13.3, H and H 7.1, 22.1, and platelets 275, an d neutrophils 70%. Blood cultures negative. Stool cultures grow yeast. Bone scan pending. Assessment: An 82-year-old female with; 1.Acute on chronic systolic heart failure. We will continue diuresis. The patient is on beta block er. No GURDEEP inhibitor due to elevated creatinine. Monitor I's and O's. Fluid restriction. 2.Atrial fibrillation, chronic. Not on anticoagulation due to risk of fall and bleed. 3.Hyperkalemia. We will give Kayexalate and monitor. 4.Normocytic normochromic anemia, likely anemia of chronic disease. H and H again dropped today to 7.1. We will transfuse 1 unit PRBCs and monitor, 20 of Lasix IV after the unit. 5.Diabetic foot ulcer. MRI unable to be done due to pacemaker. The patient again noncooperative wi th bone scan yesterday, however, now is willing to go. NO intervention planned by General surgery. The patient does need long-term IV antibiotics with vancomycin q.48 hours and Rocephin daily. We gil l adjust treatment course depending on bone scan. No cultures at this time that are positive. 6.Osteomyelitis. We will set up for long-term IV antibiotics. 7.PEG tube dysfunction, resolved. GI recommends continuing feeds. Gastrografin study showing contr ast going into the stomach lumen. 8.Acute versus acute on chronic kidney injury. Creatinine around baseline. Nephrology on board. W e will continue to monitor. 9.Metabolic acidosis. Continue with bicarb drip. 10.Coronary artery disease, [place] artery, [place] heart without angina, stable. 11.Dementia, Alzheimer's type, late onset, without behavioral disturbance. 12.Essential hypertension, stable. 13.Hypomagnesemia. We will replace and monitor. 14.Malnutrition. Continue protein supplementation. 15.Pleural effusion, improved. 16.Anasarca, resolved. 17.Urinary tract infection and acute cystitis. Cultures negative. 18.Hypernatremia, resolved. 19.Diabetes mellitus type 2 with long-term use of insulin with hyperglycemia. Continue sliding scal e. 20.Status post AICD. 21.Gastrointestinal and deep venous thrombosis prophylaxis with PPI and Lovenox renally dosed. Plan: Set up IV antibiotics. Follow up with bone scan and cultures. /JOSHUA Voice ID: [id number] Report ID: [id number]
[2017-12-20] MEDS: ENOXAPARIN 30 MG/0.3 ML SQ SCH (16:27)
[2017-12-20] MEDS ORDERED: NA CHLORIDE 0.9% 1,000 ML ONE (16:55)
--- NOTE | 2017-12-20 19:47 | P.PN ---
Date of Service: 12/20/17 Vital Signs Temp Pulse Resp BP Pulse Ox 97.8 F 94 H 18 126/58 L 90 L 12/20/17 16:00 12/20/17 16:00 12/20/17 16:00 12/20/17 16:00 12/20/17 16:00 Medications Acetaminophen (Tylenol -Extra Strength) 500 mg PO Q4HP PRN PRN Reason: [id number] Stop: 01/11/18 12:45 Last Admin: 12/19/17 16:27 Dose: 500 mg Acetaminophen (Tylenol Suppository) 650 mg IN Q6HP PRN PRN Reason: [id number] Stop: 01/11/18 12:45 Aspirin (Aspirin Ec) 81 mg PO DAILY RASHAWN Stop: 01/12/18 09:01 Last Admin: 12/20/17 09:53 Dose: 81 mg Carvedilol (Coreg) 6.25 mg PO BID RASHAWN Stop: 01/11/18 21:01 Last Admin: 12/20/17 09:54 Dose: 6.25 mg Clopidogrel Bisulfate (Plavix) 75 mg PO DAILY RASHAWN Stop: 01/12/18 09:01 Last Admin: 12/20/17 09:54 Dose: 75 mg Dextrose (Dextrose 50% Syringe) 12.5 gm IV PRN PRN PRN Reason: HYPOGLYCEMIA PROTOCOL Stop: 01/11/18 17:38 Last Admin: 12/15/17 07:12 Dose: 12.5 gm Digoxin (Lanoxin) 0.125 mg PO DAILY RASHAWN Stop: 01/12/18 09:01 Last Admin: 12/20/17 09:54 Dose: 0.125 mg Enoxaparin Sodium (Lovenox 30 Mg Inj) 30 mg SQ DAILY 5 PM RASHAWN Stop: 01/12/18 17:01 Last Admin: 12/20/17 16:27 Dose: 30 mg Enteral Nutritional Formula (Nepro) 237 ml FT TID RASHAWN Stop: 01/18/18 09:01 Last Admin: 12/20/17 14:00 Dose: 237 ml Furosemide (Lasix) 40 mg IV DAILY RASHAWN Stop: 01/15/18 09:01 Last Admin: 12/20/17 09:53 Dose: 40 mg Glucagon (Glucagen) 1 mg IM 1X PRN PRN Reason: HYPOGLYCEMIA Stop: 06/09/18 17:38 Piperacillin/Tazobactam/Sod Chloride (Zosyn 2.25 Gm/50 Ml Ivpb) 2.25 gm in 50 mls @ 100 mls/hr IVPB Q8HR [facility] Stop: 01/11/18 17:01 Last Admin: 12/20/17 16:08 Dose: Not Given Vancomycin HCl 500 mg/ Sodium (Chloride) 100 mls @ 100 mls/hr IVPB Q48H [facility] Stop: 01/19/18 14:01 Last Admin: 12/20/17 14:00 Dose: Not Given Insulin Human Regular (Novolin -R) 0 unit SQ ACHS [facility]; Protocol Stop: 01/14/18 11:31 Last Admin: 12/20/17 16:07 Dose: Not Given Ondansetron HCl (Zofran) 4 mg IV Q6HP PRN PRN Reason: NAUSEA / VOMITING Stop: 01/11/18 12:45 Sodium Bicarbonate (Sodium Bicarb 325 Mg) 1,300 mg PO QID [facility] Stop: 01/16/18 09:01 Last Admin: 12/20/17 16:27 Dose: 1,300 mg Sodium Chloride (Normal Saline Flush) 10 ml IV BID [facility] Stop: 01/11/18 21:01 Last Admin: 12/20/17 09:54 Dose: 10 ml Microbiology Results 12/12/17 10:20 Blood - Blood Aerobic Blood Culture - Final No growth in 5 days. 12/12/17 10:20 Blood - Blood Anaerobic Blood Culture - Final No growth in 5 days. Assessment/ Plan: Nephrology. No acute events overnight. CPS stable without CP or SOB. Limited IH/ ROS due to dementia. Case discussed with daughter and son at the bedside. Vitals, medications, blood work and imaging reviewed in the chart. General: Alert, Cooperative, Cachectic HEENT: Atraumatic Neck: Supple Respiratory: Clear to auscultation bilaterally, Normal air movement Cardiovascular: No edema, Regular rate/rhythm Gastrointestinal: Hypoactive, Soft and benign Musculoskeletal: No clubbing, No warmth Integumentary: No rashes, No cyanosis Neurological: Normal speech Laboratory Data (last 24 hrs) 12/12/17 11:42: PT 11.6, INR 0.98, APTT 25.9 12/12/17 11:42: WBC 15.3 H D, Hgb 7.8 L*, Hct 23.1 L, Plt Count 317 12/12/17 11:42: B-Natriuretic Peptide 3136 H 12/12/17 11:42: Sodium 146 H, Potassium 2.4 L*, BUN 102 H, Creatinine 2.37 H, Glucose 108, Magnesium 1.3 L*, Total Bilirubin 0.5, AST 20, ALT 12, Alkaline Phosphatase 125 H, Lipase 55 H Imagings Data: EXAM DESCRIPTION: CT - Abdomen Pelvis Wo Contrast - 12/12/2017 11:10 am CLINICAL HISTORY: Abdominal pain. Diarrhea COMPARISON: None TECHNIQUE: CT imaging of the abdomen and pelvis was performed without contrast. Solid organ, bowel and vascular assessment is limited due to lack of IV and oral contrast. All CT scans are performed using dose optimization technique as appropriate and may include automated exposure control or mA/KV adjustment according to patient size. FINDINGS: Small bilateral pleural effusions are present. Mild linear atelectasis is noted in both lung bases. The liver demonstrates no focal mass or biliary dilatation mild free fluid along the right liver edge is seen. A demonstrates mild free fluid along the inferior margin.The pancreas, adrenal glands and kidneys are within normal limits. The bulb of the gastrostomy tube is along the tract between the stomach in the skin. It is not within the stomach lumen. No bowel obstruction, free air, or abscess. Mild free fluid is seen in the pelvis. Aortoiliac atherosclerosis. The appendix is normal. Prominent degenerative changes present in both hips.Generalized anasarca pattern is seen. IMPRESSION: Small bilateral pleural effusions are present with mild free fluid in the abdomen and generalized anasarca pattern. Bulb of the feeding tube as detailed above is not within the stomach but rather in subcutaneous tissues. Conclusions/Impression: A/ CARMEN likely due to hypovolemia. CKD IV. Acidosis. Hypernatremia/ Dehydration. Hypokalemia/ Hyperkalemia. 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 Systolic CHF, chronic. Anemia in chronic illness. Hypomagnesemia. Moderate protein malnutrition/ Cachexia. P/ Continue current POC and Medications. Start Bicarb gtt X2 liter. Kayexalate given. Maintain nutrition. Agree with abx for osteomyelitis. IV magnesium as needed. Transfuse PRBC as needed. No NSAIDs. AM labs. Daily weight.
[2017-12-20] MEDS: D5W 1,000 ML with NA BICARB 8.4% 75 MEQ IV SCH ×2 (20:00)
--- NOTE | 2017-12-20 20:31 | PN ---
Subjective: The patient is lying in bed, somnolent, not in any acute distress. Objective: Vital Signs: Temperature 98, pulse 97, respirations 18, and blood pressure 163/67. Lungs: Basal crackles. Heart: S1 and S2, regular. Abdomen: Soft and nontender. Bowel sounds positive. Extremities: Heel ulcers noted. Right foot la teral aspect unstageable wound also noted. Laboratory Data: Shows WBC 30613, hemoglobin 7.1, and platelets 275. Chemistry shows sodium 137, pot assium 5.6, chloride 111, bicarb 15, BUN 75, creatinine 2.6, and glucose is 164. Medication: Include Zosyn and vancomycin. Assessment And Plan: Bilateral heel ulcer and right foot unstageable ulcer. Continue antibiotic and wound care. Renal insufficiency, leukocytosis. Prognosis is guarded. We will follow the patient as needed. NF/MODL Voice ID: [id number] Report ID: [id number]
[2017-12-21] MEDS: PIPER/TAZO/NS 2.25gm 2.25 GM/50 ML BAG IVPB SCH ×3 (00:18→17:00)
[2017-12-21 05:53] LABS: Absolute Lymphocytes (CBC) 2.8 K/uL (0.7-4.9); Absolute Monocytes 1.5 K/uL (0.1-1.3); Absolute Neutrophil 8.3 K/uL (1.8-8.0); Hematocrit 22.4 % (36.0-45.0); Lymphocytes % 21.5 % (15.3-44.8); MCH 29.7 pg (27.0-35.0); MCV 92.8 fL (80-100); MPV 9.9 fL (7.6-11.3); Monocytes % 11.3 % (3.3-12.3); RBC Red Blood Cell Count 2.42 M/uL (3.86-4.86)
[2017-12-21] MEDS: D5W 1,000 ML with NA BICARB 8.4% 75 MEQ IV SCH ×6 (06:02→22:59)
[2017-12-21] MEDS: INSULIN -REGULAR HUMAN 50 UNIT/0.5 ML ML SQ SCH ×4 (07:30→21:51)
[2017-12-21 07:35] LABS: Albumin 1.7 g/dL (3.2-5.5); Bilirubin Total 0.4 mg/dL (0.3-1.2); Potassium 3.7 mEq/L (3.6-5.0); Protein, Total 5.2 g/dL (6.0-8.3)
[2017-12-21] MEDS ORDERED: NA CHLORIDE 0.9% 1,000 ML ONE (08:25)
[2017-12-21] MEDS ORDERED: NS 0.9% VIAL 20 ML ONE (08:38)
[2017-12-21] MEDS ORDERED: KETAMINE HCL 500 MG/5 ML VIAL ONE (08:38)
[2017-12-21] MEDS ORDERED: HEPARIN 5000 UNIT/ML 1 ML VIAL ONE (08:39)
[2017-12-21] MEDS ORDERED: LIDOCAINE 1% 20 ML MDV ONE (08:39)
[2017-12-21] MEDS ORDERED: MIDAZOLAM HCL 2 MG/2 ML INJ ONE (08:39)
[2017-12-21] MEDS ORDERED: CEFAZOLIN/SWI 1gm 1 GM/10 ML SYR ONE (08:46)
[2017-12-21] MEDS: DIGOXIN 0.125 MG TABLET PO SCH (08:47)
[2017-12-21] MEDS: CARVEDILOL 6.25 MG TAB PO SCH ×2 (08:47→21:51)
[2017-12-21] MEDS: ASPIRIN EC 81 MG TAB PO SCH (08:47)
[2017-12-21] MEDS: NEPRO 1,000 ML BOT FT SCH ×3 (08:47→21:52)
[2017-12-21] MEDS: SODIUM BICARB 325 MG TAB PO SCH ×4 (08:48→21:54)
[2017-12-21] MEDS: CLOPIDOGREL 75 MG TABLET PO SCH (08:48)
--- NOTE | 2017-12-21 08:50 | P.CNS ---
Date of Consult: 12/21/17 PC: I was asked to evaluate an established long-term IV access for this 82-year -old female. HPC: Patient apparently was admitted and has been worked up for anemia, and also osteomyelitis. She is going to be sent to a long-term nursing facility that require at least 6 weeks of IV antibiotics. She has lack of vascular access. A PICC line has been attempted but was unsuccessful. PMH: Patient has many medical problems including coronary artery disease, hypertension, borderline renal failure, malnutrition SOC: No known allergy SYS REVIEW: Unobtainable from the patient at this time O/E awake alert state HEENT: Within normal limits Chest: Air entry equal bilaterally, pacemaker on the left upper chest ABD: Soft LOCO: Intact, no evidence of any fracture clavicles in the past IMPRESSION: Lack of vascular access PLAN: I will attempt to place a right subclavian Moore catheter. This allowed the patient to have long-term IV access the risks of been explained.
[2017-12-21] MEDS ORDERED: SODIUM CHLORIDE 0.9% 10ML INJ IV ONE (09:30)
--- NOTE | 2017-12-21 09:40 | P.OP ---
Preoperative diagnosis: Lack of vascular access Postoperative diagnosis: The same Primary procedure: Insertion of a Moore catheter Anesthesia: Conscious sedation and local Estimated blood loss: Less than 10 cc Operative Technique: The patient brought to the operating room and placed supine on the table. After the induction of adequate sedation by anesthesia, the patient was positioned on the OR with a role with her shoulders. There are the right chest was then prepped with a Betadine solution, and she was draped in usual aseptic manner. After injecting the subclavicular area with 0.25% Marcaine and allowing it to setup, a finer needle was used to cannulate the right subclavian vein. The patient was in marked Trendelenburg during this portion of the procedure. Could blood flash having been obtained on the 1st pass of the needle, the guidewire was passed down through the needle. We were able to visualize it on the fluoroscopy. We could see that until a good position in the superior cannula. At this point the catheter was tunnel on the anterior chest wall and brought out at the insertion site. The dilators were now passed over the guidewire. We were careful to visualize the catheter making the band at the junction of the subclavian with the superior came in. The catheter was now inserted down through the tear away catheter. Using a modified Seldinger technique, the catheter was position. We pulled it back slightly to ensure good position. The catheter was then sutured in place, flushed with saline, and a sterile dressing applied. At the end of the procedure the patient was in a stable condition when sent to the recovery room. Needle sponge instrument count were correct. A chest x-ray is pending in the recovery room. Complications: None Drain(s): Nasogastric (Lack of vascular access) Transferred to: Recovery Room Condition: Good
--- NOTE | 2017-12-21 10:01 | RAD REPORT ---
EXAM DESCRIPTION: RAD - Fluoroscopy <1 Hour - 12/21/2017 9:48 am FINDINGS: Right chest fluoroscopy performed. Multiple portable C-arm views were obtained during fluoroscopic assisted placement of a right-sided v enous access catheter. No suspicious or unexpected findings.
--- NOTE | 2017-12-21 10:13 | RAD REPORT ---
EXAM DESCRIPTION: RAD - Chest Single View - 12/21/2017 10:07 am CLINICAL HISTORY: Venous access catheter placement COMPARISON: December 15 TECHNIQUE: AP portable chest image was obtained 0956 hours . FINDINGS: Right subclavian venous access catheter has been placed. Catheter is in good position in t he mid SVC. There is no pneumothorax. Patient has underlying interstitial lung disease. Cardiomegaly, vascular engorgement and prominent marquis ng markings noted. Mild failure/ volume overload is evident. Pacemaker/defibrillator remains in place . Heart size is prominent. No large pleural effusion. Costophrenic angle blunting is still present. N o gross bony abnormality seen. No acute aortic findings suspected. IMPRESSION: Right subclavian central line in place. Catheter is well positioned. There is no pneumot horax. Mild CHF/ volume overload pattern still present.
--- NOTE | 2017-12-21 13:31 | PN ---
Date of Progress Note: 12/21/2017 Subjective: The patient is seen and examined. Chart reviewed and case discussed with RN and Dr. Saldana. The patient went for port placement today as she was unable to receive a PICC line successfully, not a good candidate for central line. Review of Systems: Negative except as above. Medications: Reviewed. Physical Examination: Vital Signs: Temperature 98.7, heart rate 69, blood pressure 122/50, respirations 18, and O2 94% on room air. General: Asleep, difficult to arouse, likely due to anesthesia side effects, no acute distress. Elderly female, slightly ill appearing. CV: S1, S2. Peripheral pulses weak bilaterally. Respiratory: Moving air well bilaterally. No wheezing. Gastrointestinal: Abdomen is soft, nontender, nondistended. Bowel sounds positive. PEG tube in place. Extremities: No clubbing, cyanosis, or edema. Neurologic: Nonfocal. Laboratory Data: Sodium 137, potassium 3.7, chloride 108, CO2 of 20, BUN 68, creatinine 2.61, glucose 233, calcium 8.4. WBC 12.9, H and H 7.2 and 22.4, platelets 262. Blood cultures, no growth to date. Assessment And Plan: An 82-year-old female with: 1. Yrvre-qs-xntrmmi systolic heart failure. Continue diuresis. Continue beta -mic. No GURDEEP inhibitor due to elevated creatinine. Monitor I's and O's. Daily weights. 2. Atrial fibrillation chronic and also on anticoagulation due to risk of bleed. 3. Normocytic normochromic anemia, likely anemia of chronic disease. H and H low around 7.2. The patient was transfused yesterday. 5. Diabetic foot ulcer. MRI unable to be done due to pacemaker. Bone scan after multiple attempts, the patient was finally cooperative, did show osteomyelitis of the fifth metatarsal. At this point, the patient is not agreeable to surgery. It was discussed further with daughter. However, given her comorbid conditions, her baseline attitude towards healthcare when she has been refusing lab draws, refusing bone scans and does not wish to participate in her health. Does not seem to be a good candidate for surgery. However, we will discuss with daughter who is a medical power of litigation attorney. The patient herself does not willing. We will give trial of IV antibiotics to cure osteo. If fails, we will then have a stronger case for amputation. 6. Osteomyelitis fifth metatarsal. 7. Chronic kidney disease stage 4. We will continue to monitor creatinine. 8. Metabolic acidosis. Continue with sodium bicarbonate. 9. Coronary artery disease [place] artery and [place] heart without angina, stable. 10. Dementia, Alzheimer's type, late onset, without behavioral disturbance. 11. Essential hypertension, stable. 12. Hypomagnesemia, we will replace and monitor. 13. Malnutrition. Continue protein supplementation. The patient has PEG tube. 14. Urinary tract infection with acute cystitis. Cultures negative. 15. Diabetes mellitus type 2 with long-term use of insulin with hyperglycemia. We will continue sliding scale. 16. Status post AICD. 17. Gastrointestinal and deep venous thrombosis prophylaxis on PPI and Lovenox renally dosed. Plan: Set up IV antibiotics for long-term discharge planning. Overall prognosis is poor. I did discuss hospice care with medical power of litigation attorney, who is the daughter and with the son also present. They are adamantly against hospice at this time. They state that the patient is still cognitively intact and did not wish to pursue hospice. They believe the patient is a strong- willed woman and has much longer to live. This is contrary to the patient's attitude where she has refused lab draws, refused diagnostic tests, does not participate in physical therapy or at times even her physical examination. We will continue DNR, Continue active care. GWEN Voice ID: [id number] Report ID: [id number] MORAIMA
[2017-12-21] MEDS: VANCOMYCIN 500 MG in NA CHLORIDE 0.9% 100 ML IVPB SCH (17:00)
[2017-12-21] MEDS: ENOXAPARIN 30 MG/0.3 ML SQ SCH (17:39)
[2017-12-22] MEDS: PIPER/TAZO/NS 2.25gm 2.25 GM/50 ML BAG IVPB SCH ×3 (01:56→16:58)
[2017-12-22 04:35] LABS: Absolute Lymphocytes (CBC) 1.4 K/uL (0.7-4.9); Absolute Monocytes 0.8 K/uL (0.1-1.3); Absolute Neutrophil 4.7 K/uL (1.8-8.0); Basophils % 0.4 % (0-1.3); Eosinophils % 2.8 % (0-4.4); Hematocrit 29.3 % (36.0-45.0); Lymphocytes % 19.6 % (15.3-44.8); MCV 92.6 fL (80-100); Monocytes % 11.3 % (3.3-12.3); RBC Red Blood Cell Count 3.17 M/uL (3.86-4.86)
[2017-12-22 04:53] LABS: Albumin 1.5 g/dL (3.2-5.5); Bilirubin Total 0.4 mg/dL (0.3-1.2); Magnesium 1.9 mg/dL (1.8-2.5); Potassium 3.2 mEq/L (3.6-5.0); Protein, Total 4.9 g/dL (6.0-8.3)
[2017-12-22 04:54] LABS: Urine White Blood Cell Casts OK
[2017-12-22 04:55] LABS: Basophilic Stippling 1+; Blood Morphology Comment NOTED (NOT SEEN); Platelet Estimate ADEQ; Polychromasia SLIGHT
[2017-12-22] MEDS: KCL 20 MEQ/100 mL IVPB 20 MEQ/100 ML BAG IV SCH ×2 (05:07→08:38)
[2017-12-22] MEDS: INSULIN -REGULAR HUMAN 50 UNIT/0.5 ML ML SQ SCH ×4 (07:30→21:00)
[2017-12-22] MEDS: NEPRO 1,000 ML BOT FT SCH ×3 (08:42→21:34)
[2017-12-22] MEDS: DIGOXIN 0.125 MG TABLET PO SCH ×2 (08:42→22:23)
[2017-12-22] MEDS: ASPIRIN EC 81 MG TAB PO SCH (08:42)
[2017-12-22] MEDS: CARVEDILOL 6.25 MG TAB PO SCH ×2 (08:42→21:32)
[2017-12-22] MEDS: CLOPIDOGREL 75 MG TABLET PO SCH (08:42)
[2017-12-22] MEDS: SODIUM BICARB 325 MG TAB PO SCH ×4 (08:43→21:32)
--- NOTE | 2017-12-22 09:24 | RAD REPORT ---
EXAM DESCRIPTION: RAD - ENTEROSTOMY TUBE CHECK W/CONTR - 12/22/2017 7:44 am CLINICAL HISTORY: Abdominal pain/check position of gastrostomy tube FINDINGS: 30 cc Gastrografin was administered into percutaneous tube. The tip of the tube lies withi n the distal gastric body. Contrast flows into the duodenum. No extravasation of contrast is seen
[2017-12-22] MEDS: MEGESTROL 400 MG/10 ML UCUP PO SCH ×2 (15:30→21:32)
--- NOTE | 2017-12-22 15:51 | PN ---
Date of Progress Note: 12/22/2017 Subjective: The patient seen and examined. Chart reviewed and case discussed with RN. The patient pulled out her PEG tube yesterday. Zarco catheter placed for temporary measure. We will need to re- evaluate GI to replace tube and recheck a Gastrografin study. The patient noncooperative with the ex am today. Review of Systems: Negative except as above. Medications: Reviewed. Physical Examination: Vital Signs: Temperature 99, heart rate 73, blood pressure 135/59, respirations 18, O2 96% on room a ir. General: Awake, alert, oriented x2, some mild distress, ill-appearing elderly female. CV: S1, S2. Peripheral pulses weak bilaterally. Respiratory: Moving air well bilaterally. No wheezing. Gastrointestinal: Abdomen is soft, nontender, nondistended. Positive bowel sounds. Zarco catheter in place. Extremities: No clubbing, cyanosis, edema. Skin: Bilateral heel ulcers bandaged. Neurologic: Nonfocal. Laboratory Data: Sodium 136, potassium 3.2, chloride 107, CO2 22, BUN 65, creatinine 2.52, glucose 1 37, calcium 8.2, albumin 1.5. WBC 7.1, H and H 9.5 and 29.3, platelets 207. Blood cultures, no grow th to date. Radiology Report: 30 cc of Gastrografin administered into percutaneous tube, tip of tube lies within the distal gastric body. Contrast flows into the duodenum. No extravasation of contrast is seen. Assessment And Plan: An 82-year-old female with: 1.Bfwhw-fi-uuykbre systolic heart failure. We will continue with diuresis, continue beta-blockers. No GURDEEP inhibitor due to elevated creatinine. Daily weights. Strict I's and O's, improving. 2.Atrial fibrillation, chronic. No anticoagulation due to risk of falls and bleed. 3.Normocytic normochromic anemia, anemia of chronic disease. The patient is transfused. H and H st able. We will continue to monitor. 4.Diabetic foot ulcer. Bone scan showing fifth metatarsal osteomyelitis. We will have trial of IV antibiotics before attempting any sort of amputation as patient is not a good candidate. 5.Osteomyelitis, fifth metatarsal. 6.Chronic kidney disease, stage 4. 7.Coronary artery disease, [place] artery and [place] heart without angina, stable. 8.Dementia, Alzheimer's type, late onset with behavioral disturbance. 9.Essential hypertension, stable. 10.Severe protein-calorie malnutrition. Albumin 1.5. Continue with supplementation. 11.Urinary tract infection with acute cystitis, resolved. Cultures negative. 12.Diabetes mellitus type 2 with jail use of insulin with hyperglycemia. We will continue slid ing scale insulin. 13.Status post AICD. 14.Gastrointestinal and deep venous thrombosis prophylaxis with PPI and Lovenox. Plan: 1.Discharge planning. Awaiting IV antibiotics set up for long-term, minimum 4 weeks. 2.Noncompliance. The patient continues to refuse physical examination. At time has also refused bl ood draws and had refused the bone scan multiple times before being finally agreeing with the sole r's request. Overall prognosis is poor. Would recommend hospice; however, medical power of privacy attorney is adamantly against hospice care at this time. GWEN Voice ID: [id number] Report ID: [id number]
[2017-12-22] MEDS: ENOXAPARIN 30 MG/0.3 ML SQ SCH ×2 (16:59→22:22)
[2017-12-22] MEDS ORDERED: KCL 20 MEQ/100 mL IVPB 20 MEQ/100 ML BAG IV SCH (18:00)
[2017-12-22] MEDS ORDERED: FUROSEMIDE 20 MG/ 2ML VIAL IV ONE (22:28)
[2017-12-22] MEDS ORDERED: NITROGLYCERIN 1 GM PKT TD ONE ×2 (22:30→22:31)
[2017-12-22] MEDS ORDERED: FUROSEMIDE 40 MG/4 ML VIAL ONE (22:30)
[2017-12-22] MEDS ORDERED: Morphine 2 MG/2 ML SYR IV ONE (23:12)
[2017-12-22 23:47] LABS: Urine Appearance TURBID; Urine Bilirubin NEGATIVE (NEG); Urine Blood 3+ (NEG); Urine Color YELLOW; Urine Glucose NEGATIVE (NEG); Urine Microscopic Reflex ORDER UMIC; Urine Protein 2+ (NEG); Urine Urobilinogen 0.2 mg/dL (0.2-1.0); Urine pH 5.5 (5.0-7.0)
[2017-12-22 23:58] LABS: Urine Amorphous Sediment 2+ /HPF (NONE SEEN); Urine Bacteria <20 /HPF (<20); Urine Culture Reflex Order REFLEXED; Urine RBC <5 /HPF (NONE SEEN); Urine Yeast PRESENT (NONE SEEN)
[2017-12-23] MEDS ORDERED: NA CHLORIDE 0.9% 250 ML ONE ×2 (00:01→10:14)
[2017-12-23] MEDS: PIPER/TAZO/NS 2.25gm 2.25 GM/50 ML BAG IVPB SCH ×3 (00:28→17:24)
[2017-12-23 06:10] LABS: Absolute Lymphocytes (CBC) 1.6 K/uL (0.7-4.9); Absolute Monocytes 0.8 K/uL (0.1-1.3); Absolute Neutrophil 8.5 K/uL (1.8-8.0); Basophils % 0.5 % (0-1.3); Eosinophils % 0.5 % (0-4.4); Hematocrit 21.9 % (36.0-45.0); Lymphocytes % 14.5 % (15.3-44.8); MCH 30.1 pg (27.0-35.0); MCV 92.9 fL (80-100); MPV 9.1 fL (7.6-11.3); Monocytes % 6.9 % (3.3-12.3); RBC Red Blood Cell Count 2.36 M/uL (3.86-4.86)
[2017-12-23 06:29] LABS: Albumin 1.6 g/dL (3.2-5.5); Bilirubin Total 0.4 mg/dL (0.3-1.2); Potassium 4.2 mEq/L (3.6-5.0)
[2017-12-23] MEDS: FLUCONAZOLE 200mg IVPB 200 MG/100 ML BAG IV SCH (06:46)
[2017-12-23] MEDS ORDERED: FUROSEMIDE 40 MG/4 ML VIAL IV ONE (06:56)
[2017-12-23] MEDS: INSULIN -REGULAR HUMAN 50 UNIT/0.5 ML ML SQ SCH ×4 (07:30→21:00)
[2017-12-23] MEDS: NEPRO 1,000 ML BOT FT SCH ×3 (09:00→22:37)
--- NOTE | 2017-12-23 09:13 | RAD REPORT ---
EXAM DESCRIPTION: Nellyt Single View12/22/2017 10:48 pm CLINICAL HISTORY: sob COMPARISON: December 21, 2017 FINDINGS: Overall there has been no significant change in the bilateral pulmonary opacities probabl y representing pulmonary edema. Small pleural effusions are present. The heart remains enlarged. Pacemaker leads are in place. A central venous catheter has its tip in superior vena cava. Postsurgic al changes involve the chest
[2017-12-23] MEDS: CLOPIDOGREL 75 MG TABLET PO SCH (09:34)
[2017-12-23] MEDS: DIGOXIN 0.125 MG TABLET PO SCH (09:35)
[2017-12-23] MEDS: SODIUM BICARB 325 MG TAB PO SCH ×4 (09:36→22:35)
[2017-12-23] MEDS: MEGESTROL 400 MG/10 ML UCUP PO SCH ×2 (09:37→22:35)
[2017-12-23] MEDS: CARVEDILOL 6.25 MG TAB PO SCH ×2 (09:37→22:36)
[2017-12-23] MEDS: ASPIRIN EC 81 MG TAB PO SCH (09:37)
[2017-12-23] MEDS: COLLAGENASE 30 GM OINTMENT TOP SCH (09:52)
--- NOTE | 2017-12-23 17:06 | P.PN ---
Subjective Date of Service: 12/23/17 Primary Care Provider: Jaime SONI; Nephrology-Dr. Paiz Chief Complaint: Abnormal lab Subjective: Demented Physical Examination - Vital Signs Temperature: 97.5 F Blood Pressure: 121/72 Pulse: 69 Respirations: 18 Pulse Ox (%): 100 - Physical Exam General: Demented HEENT: Atraumatic Neck: Supple Respiratory: Clear to auscultation bilaterally, Normal air movement Cardiovascular: Normal pulses, Regular rate/rhythm Gastrointestinal: Normal bowel sounds, Soft and benign Neurological: Dementia - Studies Medications List Reviewed: Yes Assessment & Plan - Problems (Diagnosis) (1) Diabetes mellitus Onset Date: 12/13/17 Current Visit: Yes Status: Chronic Plan: Will continue with Accu-Cheks and sliding scale. A1c 6.0. Qualifiers: Diabetes mellitus type: type 2 Diabetes mellitus termite inspector insulin use: without halfway use Diabetes mellitus complication status: with other specified complication Qualified Code(s): E11.69 - Type 2 diabetes mellitus with other specified complication (2) History of automatic internal cardiac defibrillator (AICD) Current Visit: Yes Status: Chronic Plan: Overall stable. Will continue monitor closely. Will monitor cardiac enzymes. Cardiology recommends no further intervention. Medications adjusted. (3) CHF (congestive heart failure) Onset Date: 12/13/17 Current Visit: Yes Status: Acute Plan: Overall stable. Patient will likely need to continue with Lasix 20 mg daily. Qualifiers: Heart failure type: systolic Heart failure chronicity: acute on chronic Qualified Code(s): I50.23 - Acute on chronic systolic (congestive) heart failure (4) Atrial fibrillation Onset Date: 12/13/17 Current Visit: Yes Status: Chronic Plan: Stable at this time. Rate controlled. Patient not on chronic anti coagulation therapy due to risk for fall and bleeding. Qualifiers: Atrial fibrillation type: chronic Qualified Code(s): I48.2 - Chronic atrial fibrillation (5) Hypokalemia Onset Date: 12/13/17 Current Visit: Yes Status: Acute Plan: Will replace potassium. Replacement protocol in place. (6) Anemia Onset Date: 12/13/17 Current Visit: Yes Status: Acute Plan: Patient with anemia likely of chronic disease. Patient continues to get Procrit. Will monitor hemoglobin. Patient received 1 unit of blood. Monitor closely. Qualifiers: Anemia type: due to chronic kidney disease Chronic kidney disease stage: stage 4 (severe) Qualified Code(s): N18.4 - Chronic kidney disease, stage 4 ( severe); D63.1 - Anemia in chronic kidney disease (7) DM foot ulcer Onset Date: 12/13/17 Current Visit: Yes Status: Acute Plan: Patient has osteomyelitis of the right foot. Recommendation is to continue with IV antibiotic therapy for 4 weeks. Port a cath in place. Awaiting skilled placement approval. Qualifiers: Diabetic foot ulcer location: other Diabetes mellitus type: type 2 Laterality: right (8) Osteomyelitis Onset Date: 12/13/17 Current Visit: Yes Status: Acute Plan: Continue with IV antibiotic therapy. Will continue with wound care as well. Patient awaiting transfer to skilled facility once approved. Qualifiers: Osteomyelitis type: unspecified type Osteomyelitis location: foot Laterality: right Qualified Code(s): M86.9 - Osteomyelitis, unspecified (9) Feeding tube dysfunction Onset Date: 12/13/17 Current Visit: Yes Status: Acute Plan: Patient had pulled out feeding tube. Zarco catheter placed. Will have GI replace feeding tube. Qualifiers: Encounter type: initial encounter Qualified Code(s): T85.598A - Other mechanical complication of other gastrointestinal prosthetic devices, implants and grafts, initial encounter (10) Acute kidney injury superimposed on CKD Onset Date: 08/27/17 Current Visit: No Status: Acute Plan: Patient with acute on chronic renal disease. Continue with Nephrology recommendations (11) CAD (coronary artery disease) Onset Date: 08/27/17 Current Visit: No Status: Chronic Plan: Continue with above plan of care. Qualifiers: (12) Dementia Onset Date: 08/27/17 Current Visit: No Status: Suspected Plan: Patient may have underlying dementia. It is been difficult to get bone scan done due to her dementia. Will not force bone scan on patient. Qualifiers: (13) Hypertension Onset Date: 08/27/17 Current Visit: No Status: Chronic Plan: Medications adjusted. Patient on carvedilol. Procardia has been discontinued. Qualifiers: Hypertension type: essential hypertension Qualified Code(s): I10 - Essential (primary) hypertension (14) Hypomagnesemia Onset Date: 12/13/17 Current Visit: Yes Status: Acute Plan: Will monitor and replace appropriately. Replacement protocol in place. (15) Chronic kidney disease (CKD) Current Visit: No Status: Acute Plan: Nephrology consulted. Renal function stable this time. Will discuss with nephrology. Qualifiers: Chronic kidney disease stage: stage 4 (severe) Qualified Code(s): N18.4 - Chronic kidney disease, stage 4 (severe) (16) Malnutrition Onset Date: 12/13/17 Current Visit: Yes Status: Chronic Plan: Will have dietary assess her malnutrition. Qualifiers: Malnutrition type: protein-calorie malnutrition Protein-calorie malnutrition severity: severe Qualified Code(s): E43 - Unspecified severe protein-calorie malnutrition (17) Pleural effusion Onset Date: 12/13/17 Current Visit: Yes Status: Acute Plan: Chest x-ray shows improvement. Will continue with Lasix (18) Anasarca Onset Date: 12/13/17 Current Visit: Yes Status: Chronic Plan: Will continue with diuretics. (19) Hypernatremia Onset Date: 12/13/17 Current Visit: Yes Status: Acute Plan: Likely from malnutrition and dehydration. This has resolved. Discharge Plan: Correction Plan to discharge in: 24 Hours Time Spent Managing Pts Care (In Minutes): 55
[2017-12-23] MEDS: ENOXAPARIN 30 MG/0.3 ML SQ SCH (17:23)
[2017-12-23] MEDS: VANCOMYCIN 500 MG in NA CHLORIDE 0.9% 100 ML IVPB SCH (18:00)
[2017-12-23 18:31] LABS: Hematocrit 23.7 % (36.0-45.0)
--- NOTE | 2017-12-23 19:45 | P.PN ---
Date of Service: 12/23/17 Vital Signs Temp Pulse Resp BP Pulse Ox 97.5 F 69 18 121/72 100 12/23/17 17:06 12/23/17 17:06 12/23/17 17:06 12/23/17 17:06 12/23/17 17:06 Medications Acetaminophen (Tylenol -Extra Strength) 500 mg PO Q4HP PRN PRN Reason: [id number] Stop: 01/11/18 12:45 Last Admin: 12/19/17 16:27 Dose: 500 mg Acetaminophen (Tylenol Suppository) 650 mg VA Q6HP PRN PRN Reason: [id number] Stop: 01/11/18 12:45 Aspirin (Aspirin Ec) 81 mg PO DAILY RASHAWN Stop: 01/12/18 09:01 Last Admin: 12/23/17 09:37 Dose: 81 mg Carvedilol (Coreg) 6.25 mg PO BID [facility] Stop: 01/11/18 21:01 Last Admin: 12/23/17 09:37 Dose: 6.25 mg Clopidogrel Bisulfate (Plavix) 75 mg PO DAILY RAS[facility] Stop: 01/12/18 09:01 Last Admin: 12/23/17 09:34 Dose: 75 mg Collagenase (Santyl Ointment) 1 appl TOP DAILY RASHAWN Stop: 01/22/18 09:01 Last Admin: 12/23/17 09:52 Dose: 1 appl Dextrose (Dextrose 50% Syringe) 12.5 gm IV PRN PRN PRN Reason: HYPOGLYCEMIA PROTOCOL Stop: 01/11/18 17:38 Last Admin: 12/15/17 07:12 Dose: 12.5 gm Digoxin (Lanoxin) 0.125 mg PO DAILY RASHAWN Stop: 01/12/18 09:01 Last Admin: 12/23/17 09:35 Dose: 0.125 mg Enoxaparin Sodium (Lovenox 30 Mg Inj) 30 mg SQ DAILY 5 PM RASHAWN Stop: 01/12/18 17:01 Last Admin: 12/23/17 17:23 Dose: 30 mg Enteral Nutritional Formula (Nepro) 237 ml FT TID RASHAWN Stop: 01/18/18 09:01 Last Admin: 12/23/17 13:31 Dose: 237 ml Glucagon (Glucagen) 1 mg IM 1X PRN PRN Reason: HYPOGLYCEMIA Stop: 06/09/18 17:38 Piperacillin/Tazobactam/Sod Chloride (Zosyn 2.25 Gm/50 Ml Ivpb) 2.25 gm in 50 mls @ 100 mls/hr IVPB Q8HR [facility] Stop: 01/11/18 17:01 Last Admin: 12/23/17 17:24 Dose: 50 mls Vancomycin HCl 500 mg/ Sodium (Chloride) 100 mls @ 100 mls/hr IVPB Q48H [facility] Stop: 01/20/18 17:01 Last Admin: 12/23/17 18:00 Dose: 100 mls Fluconazole (Diflucan 200 Mg/100 Ml Ivpb (Premix)) 200 mg in 100 mls @ 100 mls/ hr IV Q24H [facility] Stop: 01/22/18 06:01 Last Admin: 12/23/17 06:46 Dose: 100 mls Insulin Human Regular (Novolin -R) 0 unit SQ ACHS [facility]; Protocol Stop: 01/14/18 11:31 Last Admin: 12/23/17 17:23 Dose: 2 unit Megestrol Acetate (Megace) 400 mg PO BID [facility] Stop: 01/21/18 15:31 Last Admin: 12/23/17 09:37 Dose: 400 mg Ondansetron HCl (Zofran) 4 mg IV Q6HP PRN PRN Reason: NAUSEA / VOMITING Stop: 01/11/18 12:45 Sodium Bicarbonate (Sodium Bicarb 325 Mg) 1,300 mg PO QID [facility] Stop: 01/16/18 09:01 Last Admin: 12/23/17 17:24 Dose: 1,300 mg Sodium Chloride (Normal Saline Flush) 10 ml IV BID [facility] Stop: 01/11/18 21:01 Last Admin: 12/23/17 09:38 Dose: 10 ml Microbiology Results 12/12/17 10:20 Blood - Blood Aerobic Blood Culture - Final No growth in 5 days. 12/12/17 10:20 Blood - Blood Anaerobic Blood Culture - Final No growth in 5 days. Assessment/ Plan: Nephrology. No acute events overnight. CPS stable without CP. Dyspnea overnight requiring Bipap. Limited IH/ ROS due to dementia. Case discussed with granddaughter at the bedside. Vitals, medications, blood work and imaging reviewed in the chart. General: Alert, Cooperative, Cachectic HEENT: Atraumatic Neck: Supple Respiratory: Clear to auscultation bilaterally, Normal air movement Cardiovascular: Hip edema 1+, Regular rate/rhythm Gastrointestinal: Hypoactive, Soft and benign Musculoskeletal: No clubbing, No warmth Integumentary: No rashes, No cyanosis Neurological: Normal speech Laboratory Data (last 24 hrs) 12/12/17 11:42: PT 11.6, INR 0.98, APTT 25.9 12/12/17 11:42: WBC 15.3 H D, Hgb 7.8 L*, Hct 23.1 L, Plt Count 317 12/12/17 11:42: B-Natriuretic Peptide 3136 H 12/12/17 11:42: Sodium 146 H, Potassium 2.4 L*, BUN 102 H, Creatinine 2.37 H, Glucose 108, Magnesium 1.3 L*, Total Bilirubin 0.5, AST 20, ALT 12, Alkaline Phosphatase 125 H, Lipase 55 H Imagings Data: EXAM DESCRIPTION: CT - Abdomen Pelvis Wo Contrast - 12/12/2017 11:10 am CLINICAL HISTORY: Abdominal pain. Diarrhea COMPARISON: None TECHNIQUE: CT imaging of the abdomen and pelvis was performed without contrast. Solid organ, bowel and vascular assessment is limited due to lack of IV and oral contrast. All CT scans are performed using dose optimization technique as appropriate and may include automated exposure control or mA/KV adjustment according to patient size. FINDINGS: Small bilateral pleural effusions are present. Mild linear atelectasis is noted in both lung bases. The liver demonstrates no focal mass or biliary dilatation mild free fluid along the right liver edge is seen. A demonstrates mild free fluid along the inferior margin.The pancreas, adrenal glands and kidneys are within normal limits. The bulb of the gastrostomy tube is along the tract between the stomach in the skin. It is not within the stomach lumen. No bowel obstruction, free air, or abscess. Mild free fluid is seen in the pelvis. Aortoiliac atherosclerosis. The appendix is normal. Prominent degenerative changes present in both hips.Generalized anasarca pattern is seen. IMPRESSION: Small bilateral pleural effusions are present with mild free fluid in the abdomen and generalized anasarca pattern. Bulb of the feeding tube as detailed above is not within the stomach but rather in subcutaneous tissues. Conclusions/Impression: A/ CARMEN likely due to hypovolemia. CKD IV. Acidosis. Hypernatremia/ Dehydration. Hypokalemia/ Hyperkalemia. 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 Systolic CHF, A/C. Anemia in chronic illness. Hypomagnesemia. Moderate protein malnutrition/ Cachexia. Anasarca. Osteomyelitis of the foot. P/ Continue current POC and Medications. Agree with stopping IVF and giving Lasix as needed for A/C CHF. Maintain nutrition. Agree with abx for osteomyelitis. IV magnesium as needed. PRBCs given today. No NSAIDs. AM labs. Daily weight.
[2017-12-24] MEDS: PIPER/TAZO/NS 2.25gm 2.25 GM/50 ML BAG IVPB SCH ×2 (01:00→09:33)
[2017-12-24 04:56] LABS: Absolute Lymphocytes (CBC) 1.7 K/uL (0.7-4.9); Absolute Neutrophil 7.1 K/uL (1.8-8.0); Basophils % 0.3 % (0-1.3); Eosinophils % 3.7 % (0-4.4); Lymphocytes % 16.4 % (15.3-44.8); MCH 30.6 pg (27.0-35.0); MCV 91.1 fL (80-100); MPV 8.5 fL (7.6-11.3); Monocytes % 9.3 % (3.3-12.3); RBC Red Blood Cell Count 2.63 M/uL (3.86-4.86)
[2017-12-24 05:04] LABS: Potassium 3.6 mEq/L (3.6-5.0)
[2017-12-24 05:05] LABS: Magnesium 1.6 mg/dL (1.8-2.5)
[2017-12-24] MEDS: FLUCONAZOLE 200mg IVPB 200 MG/100 ML BAG IV SCH (06:05)
[2017-12-24] MEDS: INSULIN -REGULAR HUMAN 50 UNIT/0.5 ML ML SQ SCH ×4 (07:30→21:00)
[2017-12-24] MEDS ORDERED: MAGNESIUM SULFATE 1 gm IVPB 1 GM/100 ML BAG IV ONE (08:00)
[2017-12-24] MEDS ORDERED: POTASSIUM CL SA 10 MEQ TAB PO ONE (09:00)
[2017-12-24] MEDS: NEPRO 1,000 ML BOT FT SCH ×3 (09:00→22:08)
[2017-12-24] MEDS: SODIUM BICARB 325 MG TAB PO SCH ×4 (09:30→22:07)
[2017-12-24] MEDS: CARVEDILOL 6.25 MG TAB PO SCH ×2 (09:31→22:07)
[2017-12-24] MEDS: CLOPIDOGREL 75 MG TABLET PO SCH (09:31)
[2017-12-24] MEDS: MEGESTROL 400 MG/10 ML UCUP PO SCH ×2 (09:31→22:07)
[2017-12-24] MEDS: ASPIRIN EC 81 MG TAB PO SCH (09:32)
[2017-12-24] MEDS: COLLAGENASE 30 GM OINTMENT TOP SCH (09:32)
[2017-12-24] MEDS: DIGOXIN 0.125 MG TABLET PO SCH (09:32)
--- NOTE | 2017-12-24 13:10 | P.PN ---
Subjective Date of Service: 12/24/17 Primary Care Provider: Jaime SONI; Nephrology-Dr. Paiz Chief Complaint: Abnormal lab Subjective: Doing well Physical Examination - Vital Signs Temperature: 99.2 F Blood Pressure: 141/86 Pulse: 82 Respirations: 18 Pulse Ox (%): 96 - Physical Exam General: Alert, Cooperative, Demented HEENT: Atraumatic Neck: Supple Respiratory: Clear to auscultation bilaterally, Normal air movement Cardiovascular: Normal pulses, Regular rate/rhythm Gastrointestinal: Normal bowel sounds, Soft and benign, Non-distended, No masses , No rebound, No guarding Musculoskeletal: No tenderness, No warmth Neurological: Dementia - Studies Medications List Reviewed: Yes Assessment & Plan - Problems (Diagnosis) (1) Diabetes mellitus Onset Date: 12/13/17 Current Visit: Yes Status: Chronic Plan: Will continue with Accu-Cheks and sliding scale. A1c 6.0. Qualifiers: Diabetes mellitus type: type 2 Diabetes mellitus intermediate teacher insulin use: without intermediate teacher use Diabetes mellitus complication status: with other specified complication Qualified Code(s): E11.69 - Type 2 diabetes mellitus with other specified complication (2) History of automatic internal cardiac defibrillator (AICD) Current Visit: Yes Status: Chronic Plan: Overall stable. Will continue monitor closely. Will monitor cardiac enzymes. Cardiology recommends no further intervention. Medications adjusted. (3) CHF (congestive heart failure) Onset Date: 12/13/17 Current Visit: Yes Status: Acute Plan: Overall stable. Will continue with medication. Qualifiers: Heart failure type: systolic Heart failure chronicity: acute on chronic Qualified Code(s): I50.23 - Acute on chronic systolic (congestive) heart failure (4) Atrial fibrillation Onset Date: 12/13/17 Current Visit: Yes Status: Chronic Plan: Stable at this time. Rate controlled. Patient not on chronic anti coagulation therapy due to risk for fall and bleeding. Qualifiers: Atrial fibrillation type: chronic Qualified Code(s): I48.2 - Chronic atrial fibrillation (5) Hypokalemia Onset Date: 12/13/17 Current Visit: Yes Status: Acute Plan: Will replace potassium. Replacement protocol in place. (6) Anemia Onset Date: 12/13/17 Current Visit: Yes Status: Acute Plan: Patient with anemia likely of chronic disease. Patient continues to get Procrit. Will monitor hemoglobin. Patient received 1 unit of blood. Monitor closely. Qualifiers: Anemia type: due to chronic kidney disease Chronic kidney disease stage: stage 4 (severe) Qualified Code(s): N18.4 - Chronic kidney disease, stage 4 ( severe); D63.1 - Anemia in chronic kidney disease (7) DM foot ulcer Onset Date: 12/13/17 Current Visit: Yes Status: Acute Plan: Patient has osteomyelitis of the right foot. Will discuss with infectious disease about the possibility of adjusting IV antibiotics as the patient will need care at skilled facility. Options are limited at this time Qualifiers: Diabetic foot ulcer location: other Diabetes mellitus type: type 2 Laterality: right (8) Osteomyelitis Onset Date: 12/13/17 Current Visit: Yes Status: Acute Plan: Continue with IV antibiotic therapy. Will discuss with infectious disease. Qualifiers: Osteomyelitis type: unspecified type Osteomyelitis location: foot Laterality: right Qualified Code(s): M86.9 - Osteomyelitis, unspecified (9) Feeding tube dysfunction Onset Date: 12/13/17 Current Visit: Yes Status: Acute Plan: Patient had pulled out feeding tube. Zarco catheter placed. Will have GI replace feeding tube. Qualifiers: Encounter type: initial encounter Qualified Code(s): T85.598A - Other mechanical complication of other gastrointestinal prosthetic devices, implants and grafts, initial encounter (10) Acute kidney injury superimposed on CKD Onset Date: 08/27/17 Current Visit: No Status: Acute Plan: Patient with acute on chronic renal disease. Continue with Nephrology recommendations (11) CAD (coronary artery disease) Onset Date: 08/27/17 Current Visit: No Status: Chronic Plan: Continue with above plan of care. Qualifiers: (12) Dementia Onset Date: 08/27/17 Current Visit: No Status: Suspected Plan: Patient may have underlying dementia. It is been difficult to get bone scan done due to her dementia. Will not force bone scan on patient. Qualifiers: (13) Hypertension Onset Date: 08/27/17 Current Visit: No Status: Chronic Plan: Medications adjusted. Patient on carvedilol. Procardia has been discontinued. Qualifiers: Hypertension type: essential hypertension Qualified Code(s): I10 - Essential (primary) hypertension (14) Hypomagnesemia Onset Date: 12/13/17 Current Visit: Yes Status: Acute Plan: Will monitor and replace appropriately. Replacement protocol in place. (15) Chronic kidney disease (CKD) Current Visit: No Status: Acute Plan: Nephrology consulted. Renal function stable this time. Will discuss with nephrology. Qualifiers: Chronic kidney disease stage: stage 4 (severe) Qualified Code(s): N18.4 - Chronic kidney disease, stage 4 (severe) (16) Malnutrition Onset Date: 12/13/17 Current Visit: Yes Status: Chronic Plan: Will have dietary assess her malnutrition. Will provide oral intake. Qualifiers: Malnutrition type: protein-calorie malnutrition Protein-calorie malnutrition severity: severe Qualified Code(s): E43 - Unspecified severe protein-calorie malnutrition (17) Pleural effusion Onset Date: 12/13/17 Current Visit: Yes Status: Acute Plan: Chest x-ray shows improvement. Will continue with Lasix (18) Anasarca Onset Date: 12/13/17 Current Visit: Yes Status: Chronic Plan: Will continue with diuretics. (19) Hypernatremia Onset Date: 12/13/17 Current Visit: Yes Status: Acute Plan: Likely from malnutrition and dehydration. This has resolved. Discharge Plan: Other (Skilled placement) Plan to discharge in: 24 Hours Time Spent Managing Pts Care (In Minutes): 55
--- NOTE | 2017-12-24 13:31 | PN ---
Subjective: The patient lying in bed. No new complaints. No fever. No diarrhea. Objective: Vital Signs: Reviewed. Lungs: Basal crackles. Heart: S1, S2. Regular. Abdomen: Soft, nontender. Bowel sounds positive. Extremities: Examination of foot shows improving heel ulcers. Diagnostic Data: Bone scan showed the patient has fifth metatarsal and fifth phalanx compatible with osteomyelitis of the left foot. Assessment And Plan: Osteomyelitis of the foot and decubitus ulcer to the heel. Continue to improve . We will switch the patient from Zosyn to Rocephin. We will follow total course 6 weeks. Continue vancomycin and blood levels. We will follow the patient as needed. CBC, BMP, and Vanco levels to b e done Mondays and . If any question, please give me a call. JAS/JOSHUA Voice ID: [id number] Report ID: [id number]
[2017-12-24] MEDS: ENOXAPARIN 30 MG/0.3 ML SQ SCH (17:04)
[2017-12-24] MEDS: ACETAMINOPHEN 500 MG TAB PO PRN (22:10)
--- NOTE | 2017-12-24 23:13 | P.PN ---
Date of Service: 12/24/17 Vital Signs Temp Pulse Resp BP Pulse Ox 99.4 F 78 18 171/76 H 95 12/24/17 16:00 12/24/17 22:07 12/24/17 16:00 12/24/17 22:07 12/24/17 16:00 Medications Acetaminophen (Tylenol -Extra Strength) 500 mg PO Q4HP PRN PRN Reason: [id number] Stop: 01/11/18 12:45 Last Admin: 12/24/17 22:10 Dose: 500 mg Acetaminophen (Tylenol Suppository) 650 mg ME Q6HP PRN PRN Reason: [id number] Stop: 01/11/18 12:45 Aspirin (Aspirin Ec) 81 mg PO DAILY RASHAWN Stop: 01/12/18 09:01 Last Admin: 12/24/17 09:32 Dose: 81 mg Carvedilol (Coreg) 6.25 mg PO BID [facility] Stop: 01/11/18 21:01 Last Admin: 12/24/17 22:07 Dose: 6.25 mg Clopidogrel Bisulfate (Plavix) 75 mg PO DAILY [facility] Stop: 01/12/18 09:01 Last Admin: 12/24/17 09:31 Dose: 75 mg Collagenase (Santyl Ointment) 1 appl TOP DAILY [facility]HAWN Stop: 01/22/18 09:01 Last Admin: 12/24/17 09:32 Dose: 1 appl Dextrose (Dextrose 50% Syringe) 12.5 gm IV PRN PRN PRN Reason: HYPOGLYCEMIA PROTOCOL Stop: 01/11/18 17:38 Last Admin: 12/15/17 07:12 Dose: 12.5 gm Digoxin (Lanoxin) 0.125 mg PO DAILY RASHAWN Stop: 01/12/18 09:01 Last Admin: 12/24/17 09:32 Dose: 0.125 mg Enoxaparin Sodium (Lovenox 30 Mg Inj) 30 mg SQ DAILY 5 PM [facility] Stop: 01/12/18 17:01 Last Admin: 12/24/17 17:04 Dose: 30 mg Enteral Nutritional Formula (Nepro) 237 ml FT TID [facility] Stop: 01/18/18 09:01 Last Admin: 12/24/17 22:08 Dose: 237 ml Fluconazole (Diflucan Tab) 100 mg PO DAILY [facility]WN Stop: 01/24/18 09:01 Glucagon (Glucagen) 1 mg IM 1X PRN PRN Reason: HYPOGLYCEMIA Stop: 01/11/18 17:38 Ceftriaxone Sodium/Sodium Chloride (Rocephin 1 Gm/10 Ml Swi Ivp) 1 gm in 10 mls @ 10 mls/hr IV DAILY [facility] Stop: 01/24/18 09:01 Insulin Human Regular (Novolin -R) 0 unit SQ ACHS [facility]; Protocol Stop: 01/14/18 11:31 Last Admin: 12/24/17 21:00 Dose: Not Given Megestrol Acetate (Megace) 400 mg PO BID [facility] Stop: 01/21/18 15:31 Last Admin: 12/24/17 22:07 Dose: 400 mg Ondansetron HCl (Zofran) 4 mg IV Q6HP PRN PRN Reason: NAUSEA / VOMITING Stop: 01/11/18 12:45 Sodium Bicarbonate (Sodium Bicarb 325 Mg) 1,300 mg PO QID [facility] Stop: 01/16/18 09:01 Last Admin: 12/24/17 22:07 Dose: 1,300 mg Sodium Chloride (Normal Saline Flush) 10 ml IV BID [facility] Stop: 01/11/18 21:01 Last Admin: 12/24/17 22:08 Dose: 10 ml Microbiology Results 12/12/17 10:20 Blood - Blood Aerobic Blood Culture - Final No growth in 5 days. 12/12/17 10:20 Blood - Blood Anaerobic Blood Culture - Final No growth in 5 days. Assessment/ Plan: Nephrology. No acute events overnight. CPS stable without CP. Limited IH/ ROS due to dementia. Vitals, medications, blood work and imaging reviewed in the chart. General: Alert, Cooperative, Cachectic HEENT: Atraumatic Neck: Supple Respiratory: Clear to auscultation bilaterally, Normal air movement Cardiovascular: Hip edema 1+, Regular rate/rhythm Gastrointestinal: Hypoactive, Soft and benign Musculoskeletal: No clubbing, No warmth Integumentary: No rashes, No cyanosis Neurological: Normal speech Laboratory Data (last 24 hrs) 12/12/17 11:42: PT 11.6, INR 0.98, APTT 25.9 12/12/17 11:42: WBC 15.3 H D, Hgb 7.8 L*, Hct 23.1 L, Plt Count 317 12/12/17 11:42: B-Natriuretic Peptide 3136 H 12/12/17 11:42: Sodium 146 H, Potassium 2.4 L*, BUN 102 H, Creatinine 2.37 H, Glucose 108, Magnesium 1.3 L*, Total Bilirubin 0.5, AST 20, ALT 12, Alkaline Phosphatase 125 H, Lipase 55 H Imagings Data: EXAM DESCRIPTION: CT - Abdomen Pelvis Wo Contrast - 12/12/2017 11:10 am CLINICAL HISTORY: Abdominal pain. Diarrhea COMPARISON: None TECHNIQUE: CT imaging of the abdomen and pelvis was performed without contrast. Solid organ, bowel and vascular assessment is limited due to lack of IV and oral contrast. All CT scans are performed using dose optimization technique as appropriate and may include automated exposure control or mA/KV adjustment according to patient size. FINDINGS: Small bilateral pleural effusions are present. Mild linear atelectasis is noted in both lung bases. The liver demonstrates no focal mass or biliary dilatation mild free fluid along the right liver edge is seen. A demonstrates mild free fluid along the inferior margin.The pancreas, adrenal glands and kidneys are within normal limits. The bulb of the gastrostomy tube is along the tract between the stomach in the skin. It is not within the stomach lumen. No bowel obstruction, free air, or abscess. Mild free fluid is seen in the pelvis. Aortoiliac atherosclerosis. The appendix is normal. Prominent degenerative changes present in both hips.Generalized anasarca pattern is seen. IMPRESSION: Small bilateral pleural effusions are present with mild free fluid in the abdomen and generalized anasarca pattern. Bulb of the feeding tube as detailed above is not within the stomach but rather in subcutaneous tissues. Conclusions/Impression: A/ ACRMEN likely due to hypovolemia. CKD IV. Acidosis. Hypernatremia/ Dehydration. Hypokalemia/ Hyperkalemia. 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 Systolic CHF, A/C. Anemia in chronic illness. Hypomagnesemia. Moderate protein malnutrition/ Cachexia. Anasarca. Osteomyelitis of the foot. P/ Continue current POC and Medications. Maintain nutrition. Agree with abx for osteomyelitis. Appreciate ID input. IV magnesium as needed. PRBCs as needed. No NSAIDs. AM labs. Daily weight.
[2017-12-25 04:59] LABS: Absolute Lymphocytes (CBC) 2.1 K/uL (0.7-4.9); Absolute Monocytes 0.9 K/uL (0.1-1.3); Absolute Neutrophil 7.2 K/uL (1.8-8.0); Basophils % 0.4 % (0-1.3); Eosinophils % 2.3 % (0-4.4); Lymphocytes % 20.3 % (15.3-44.8); MCH 30.3 pg (27.0-35.0); MCV 91.7 fL (80-100); MPV 8.6 fL (7.6-11.3); Monocytes % 8.6 % (3.3-12.3); RBC Red Blood Cell Count 2.73 M/uL (3.86-4.86)
[2017-12-25 05:10] LABS: Potassium 3.6 mEq/L (3.6-5.0)
[2017-12-25 05:14] LABS: Magnesium 1.9 mg/dL (1.8-2.5)
[2017-12-25] MEDS: INSULIN -REGULAR HUMAN 50 UNIT/0.5 ML ML SQ SCH ×4 (07:30→22:29)
[2017-12-25] MEDS ORDERED: POTASSIUM 25 MEQ EFFERV TAB PO ONE (09:00)
[2017-12-25] MEDS: NEPRO 1,000 ML BOT FT SCH ×3 (09:00→22:30)
[2017-12-25] MEDS: SODIUM BICARB 325 MG TAB PO SCH ×4 (10:27→22:33)
[2017-12-25] MEDS: COLLAGENASE 30 GM OINTMENT TOP SCH (10:27)
[2017-12-25] MEDS: DIGOXIN 0.125 MG TABLET PO SCH (10:27)
[2017-12-25] MEDS: MEGESTROL 400 MG/10 ML UCUP PO SCH ×2 (10:27→22:30)
[2017-12-25] MEDS: FLUCONAZOLE 100 MG TAB PO SCH (10:28)
[2017-12-25] MEDS: CLOPIDOGREL 75 MG TABLET PO SCH (10:28)
[2017-12-25] MEDS: ASPIRIN EC 81 MG TAB PO SCH (10:28)
[2017-12-25] MEDS: CARVEDILOL 6.25 MG TAB PO SCH ×2 (10:28→22:28)
[2017-12-25] MEDS: CEFTRIAXONE/SWI 1gm 1 GM/10 ML SYR IV SCH (10:30)
--- NOTE | 2017-12-25 11:42 | P.PN ---
Subjective Date of Service: 12/25/17 Primary Care Provider: Jaime SONI; Nephrology-Dr. Paiz Chief Complaint: Abnormal lab Subjective: Improving, Doing well Physical Examination - Vital Signs Temperature: 99.4 F Blood Pressure: 172/80 Pulse: 73 Respirations: 18 Pulse Ox (%): 98 - Physical Exam General: Alert, In no apparent distress, Demented HEENT: Atraumatic Neck: Supple Respiratory: Clear to auscultation bilaterally Cardiovascular: Normal pulses, Regular rate/rhythm Gastrointestinal: Normal bowel sounds, Soft and benign, Non-distended, No tenderness, No masses, No rebound, No guarding Musculoskeletal: No erythema, No tenderness, No warmth Integumentary: No erythema, No warmth, No cyanosis Neurological: Normal speech, Normal strength at 5/5 x4 extr, Normal tone, Dementia - Studies Medications List Reviewed: Yes Assessment & Plan - Problems (Diagnosis) (1) Diabetes mellitus Onset Date: 12/13/17 Current Visit: Yes Status: Chronic Plan: Will continue with Accu-Cheks and sliding scale. A1c 6.0. Patient awaiting placement to skilled facility. Qualifiers: Diabetes mellitus type: type 2 Diabetes mellitus nursing home insulin use: without nursing home use Diabetes mellitus complication status: with other specified complication Qualified Code(s): E11.69 - Type 2 diabetes mellitus with other specified complication (2) History of automatic internal cardiac defibrillator (AICD) Current Visit: Yes Status: Chronic Plan: Overall stable. Will continue monitor closely. Will monitor cardiac enzymes. Cardiology recommends no further intervention. Medications adjusted. (3) CHF (congestive heart failure) Onset Date: 12/13/17 Current Visit: Yes Status: Acute Plan: Overall stable. Will continue with medication. Qualifiers: Heart failure type: systolic Heart failure chronicity: acute on chronic Qualified Code(s): I50.23 - Acute on chronic systolic (congestive) heart failure (4) Atrial fibrillation Onset Date: 12/13/17 Current Visit: Yes Status: Chronic Plan: Stable at this time. Rate controlled. Patient not on chronic anti coagulation therapy due to risk for fall and bleeding. Qualifiers: Atrial fibrillation type: chronic Qualified Code(s): I48.2 - Chronic atrial fibrillation (5) Hypokalemia Onset Date: 12/13/17 Current Visit: Yes Status: Acute Plan: Will replace potassium. Replacement protocol in place. (6) Anemia Onset Date: 12/13/17 Current Visit: Yes Status: Acute Plan: Patient with anemia likely of chronic disease. Patient continues to get Procrit. Will monitor hemoglobin. Patient received 1 unit of blood. Monitor closely. Qualifiers: Anemia type: due to chronic kidney disease Chronic kidney disease stage: stage 4 (severe) Qualified Code(s): N18.4 - Chronic kidney disease, stage 4 ( severe); D63.1 - Anemia in chronic kidney disease (7) DM foot ulcer Onset Date: 12/13/17 Current Visit: Yes Status: Acute Plan: Patient has osteomyelitis of the right foot. Case discussed with infectious disease. IV antibiotic therapy has been adjusted. Patient will need Rocephin 1 g IV daily for 6 weeks. Patient continue with wound care. Patient will need to follow up with infectious disease at the [facility]. Awaiting placement to half-way. Qualifiers: Diabetic foot ulcer location: other Diabetes mellitus type: type 2 Laterality: right (8) Osteomyelitis Onset Date: 12/13/17 Current Visit: Yes Status: Acute Plan: Continue with IV antibiotic therapy. As above Qualifiers: Osteomyelitis type: unspecified type Osteomyelitis location: foot Laterality: right Qualified Code(s): M86.9 - Osteomyelitis, unspecified (9) Feeding tube dysfunction Onset Date: 12/13/17 Current Visit: Yes Status: Acute Plan: Patient had pulled out feeding tube. Zarco catheter placed. Case discussed with family. Since the patient is taking oral intake well they request that the feeding tube be discontinued. Will discuss with GI. Qualifiers: Encounter type: initial encounter Qualified Code(s): T85.598A - Other mechanical complication of other gastrointestinal prosthetic devices, implants and grafts, initial encounter (10) Acute kidney injury superimposed on CKD Onset Date: 08/27/17 Current Visit: No Status: Acute Plan: Patient with acute on chronic renal disease. Continue with Nephrology recommendations (11) CAD (coronary artery disease) Onset Date: 08/27/17 Current Visit: No Status: Chronic Plan: Continue with above plan of care. Qualifiers: (12) Dementia Onset Date: 08/27/17 Current Visit: No Status: Suspected Plan: Patient may have underlying dementia. It is been difficult to get bone scan done due to her dementia. Will not force bone scan on patient. Qualifiers: (13) Hypertension Onset Date: 08/27/17 Current Visit: No Status: Chronic Plan: Medications adjusted. Patient on carvedilol. Procardia has been discontinued. Qualifiers: Hypertension type: essential hypertension Qualified Code(s): I10 - Essential (primary) hypertension (14) Hypomagnesemia Onset Date: 12/13/17 Current Visit: Yes Status: Acute Plan: Will monitor and replace appropriately. Replacement protocol in place. (15) Chronic kidney disease (CKD) Current Visit: No Status: Acute Plan: Nephrology consulted. Renal function stable this time. Will discuss with nephrology. Qualifiers: Chronic kidney disease stage: stage 4 (severe) Qualified Code(s): N18.4 - Chronic kidney disease, stage 4 (severe) (16) Malnutrition Onset Date: 12/13/17 Current Visit: Yes Status: Chronic Plan: Patient taking oral intake well. Qualifiers: Malnutrition type: protein-calorie malnutrition Protein-calorie malnutrition severity: severe Qualified Code(s): E43 - Unspecified severe protein-calorie malnutrition (17) Pleural effusion Onset Date: 12/13/17 Current Visit: Yes Status: Acute Plan: Chest x-ray shows improvement. Will continue with Lasix (18) Anasarca Onset Date: 12/13/17 Current Visit: Yes Status: Chronic Plan: Will continue with diuretics. (19) Hypernatremia Onset Date: 12/13/17 Current Visit: Yes Status: Acute Plan: Likely from malnutrition and dehydration. This has resolved. Discharge Plan: [facility] Plan to discharge in: 24 Hours Time Spent Managing Pts Care (In Minutes): 55
--- NOTE | 2017-12-25 17:06 | PN ---
Subjective: The patient lying in bed. No new complaint. Chart reviewed. Objective: Vital Signs: Temperature 99, pulse 71, respiration 18, blood pressure 179/74. Lungs: Basal crackles. Heart: S1, S2. Regular. Abdomen: Soft, nontender. Bowel sounds positive. Extremities: Heel wounds noted. Laboratory Data: Shows WBC 13165, hemoglobin 8.2, platelets 266. Assessment And Plan: Bilateral heel wounds, healing well. Continue antibiotic and wound care. We w ill follow the patient as needed. NF/MODL Voice ID: [id number] Report ID: [id number]
--- NOTE | 2017-12-25 17:57 | PN ---
Date of Progress Note: 12/24/2017 Subjective: The patient offers no complaints. She is nonverbal at baseline. Physical Examination: Vital Signs: Have been reviewed. Blood pressure is slightly high at 172/80, but overall stable. General: She appears weak and cachectic. HEENT: Atraumatic head. The patient has a Zarco catheter instead of the PEG tube at this point. Extremities: No evidence of edema. The patient has a decubitus ulcer on her heel on the right foot. Laboratory Data: Showing a stable creatinine of 2.51, BUN of 59, and other electrolytes are stable. CBC showing stable hemoglobin of 8.2, hematocrit of 25. Current Medications: Have all been reviewed. Impression: 1.Acute on chronic renal insufficiency secondary to acute tubular necrosis, currently with stable re nal function. 2.Osteomyelitis of the heel, currently remains on Rocephin as recommended by Infectious Disease. 3.Malnutrition, currently on PEG tube feedings. Currently, the patient is being evaluated for repla cement of her PEG tube. She is on bolus feeds with Nepro. 4.Hypertension, currently stable. We will not adjust any medications at this time. 5.Hyperglycemia. Continue insulin per protocol. 6.Acute on chronic congestive heart failure, currently with stable volume status. Plan: The patient is overall stable. However, her overall prognosis is guarded. Renal function is stable at this time. I agree with replacing the PEG tube and resuming her tube feeds at this time al hammad with free water and monitor her labs closely. Continue Procrit for her anemia to maintain her he moglobin levels and prevent further transfusions. Antibiotics as determined by ID and have been adju sted for her renal function. Continue all other medications and plan of care. VV/MODL Voice ID: [id number] Report ID: [id number]
[2017-12-25] MEDS: ENOXAPARIN 30 MG/0.3 ML SQ SCH (18:24)
[2017-12-26] MEDS: COLLAGENASE 30 GM OINTMENT TOP SCH ×2 (03:40→09:00)
[2017-12-26 05:52] LABS: Potassium 4.3 mEq/L (3.6-5.0)
[2017-12-26 05:53] LABS: Absolute Neutrophil 9.1 K/uL (1.8-8.0); Basophils % 0.3 % (0-1.3); Eosinophils % 1.8 % (0-4.4); Hematocrit 26.2 % (36.0-45.0); Lymphocytes % 16.3 % (15.3-44.8); MCH 31.2 pg (27.0-35.0); MCV 92.4 fL (80-100); MPV 8.3 fL (7.6-11.3); Magnesium 1.8 mg/dL (1.8-2.5); Monocytes % 8.2 % (3.3-12.3); RBC Red Blood Cell Count 2.83 M/uL (3.86-4.86)
[2017-12-26] MEDS ORDERED: MAGNESIUM SULFATE 1 gm IVPB 1 GM/100 ML BAG IV ONE (06:03)
[2017-12-26] MEDS: MEGESTROL 400 MG/10 ML UCUP PO SCH (08:28)
[2017-12-26] MEDS: ACETAMINOPHEN 500 MG TAB PO PRN (08:29)
[2017-12-26] MEDS: SODIUM BICARB 325 MG TAB PO SCH ×4 (08:29→17:00)
[2017-12-26] MEDS: CLOPIDOGREL 75 MG TABLET PO SCH (08:29)
[2017-12-26] MEDS: INSULIN -REGULAR HUMAN 50 UNIT/0.5 ML ML SQ SCH ×3 (08:29→16:27)
[2017-12-26] MEDS: ASPIRIN EC 81 MG TAB PO SCH (08:29)
[2017-12-26] MEDS: FLUCONAZOLE 100 MG TAB PO SCH (08:29)
[2017-12-26] MEDS: DIGOXIN 0.125 MG TABLET PO SCH (08:30)
[2017-12-26] MEDS: NEPRO 1,000 ML BOT FT SCH ×2 (08:30→14:00)
[2017-12-26] MEDS: CARVEDILOL 6.25 MG TAB PO SCH (08:30)
[2017-12-26] MEDS: CEFTRIAXONE/SWI 1gm 1 GM/10 ML SYR IV SCH (08:30)
--- NOTE | 2017-12-26 08:37 | P.PN ---
Date of Service: 12/26/17 Vital Signs Temp Pulse Resp BP Pulse Ox 99 F 104 H 18 191/91 H 92 12/26/17 04:00 12/26/17 08:30 12/26/17 04:00 12/26/17 08:30 12/26/17 04:00 Medications Acetaminophen (Tylenol -Extra Strength) 500 mg PO Q4HP PRN PRN Reason: [id number] Stop: 01/11/18 12:45 Last Admin: 12/26/17 08:29 Dose: 500 mg Acetaminophen (Tylenol Suppository) 650 mg FL Q6HP PRN PRN Reason: [id number] Stop: 01/11/18 12:45 Aspirin (Aspirin Ec) 81 mg PO DAILY RASHAWN Stop: 01/12/18 09:01 Last Admin: 12/26/17 08:29 Dose: 81 mg Carvedilol (Coreg) 6.25 mg PO BID RASHAWN Stop: 01/11/18 21:01 Last Admin: 12/26/17 08:30 Dose: 6.25 mg Clopidogrel Bisulfate (Plavix) 75 mg PO DAILY RASHAWN Stop: 01/12/18 09:01 Last Admin: 12/26/17 08:29 Dose: 75 mg Collagenase (Santyl Ointment) 1 appl TOP DAILY RASHAWN Stop: 01/22/18 09:01 Last Admin: 12/26/17 03:40 Dose: 1 appl Dextrose (Dextrose 50% Syringe) 12.5 gm IV PRN PRN PRN Reason: HYPOGLYCEMIA PROTOCOL Stop: 01/11/18 17:38 Last Admin: 12/15/17 07:12 Dose: 12.5 gm Digoxin (Lanoxin) 0.125 mg PO DAILY RASHAWN Stop: 01/12/18 09:01 Last Admin: 12/26/17 08:30 Dose: 0.125 mg Enoxaparin Sodium (Lovenox 30 Mg Inj) 30 mg SQ DAILY 5 PM RASHAWN Stop: 01/12/18 17:01 Last Admin: 12/25/17 18:24 Dose: 30 mg Enteral Nutritional Formula (Nepro) 237 ml FT TID RASHAWN Stop: 01/18/18 09:01 Last Admin: 12/26/17 08:30 Dose: 237 ml Fluconazole (Diflucan Tab) 100 mg PO DAILY RASHAWN Stop: 01/24/18 09:01 Last Admin: 12/26/17 08:29 Dose: 100 mg Glucagon (Glucagen) 1 mg IM 1X PRN PRN Reason: HYPOGLYCEMIA Stop: 01/11/18 17:38 Ceftriaxone Sodium/Sodium Chloride (Rocephin 1 Gm/10 Ml Swi Ivp) 1 gm in 10 mls @ 10 mls/hr IV DAILY [facility] Stop: 01/24/18 09:01 Last Admin: 12/26/17 08:30 Dose: 10 mls Insulin Human Regular (Novolin -R) 0 unit SQ ACHS [facility]; Protocol Stop: 01/14/18 11:31 Last Admin: 12/26/17 08:29 Dose: 2 unit Megestrol Acetate (Megace) 400 mg PO BID [facility] Stop: 01/21/18 15:31 Last Admin: 12/26/17 08:28 Dose: 400 mg Ondansetron HCl (Zofran) 4 mg IV Q6HP PRN PRN Reason: NAUSEA / VOMITING Stop: 01/11/18 12:45 Sodium Bicarbonate (Sodium Bicarb 325 Mg) 1,300 mg PO QID [facility] Stop: 01/16/18 09:01 Last Admin: 12/26/17 08:29 Dose: 1,300 mg Sodium Chloride (Normal Saline Flush) 10 ml IV BID [facility] Stop: 01/11/18 21:01 Last Admin: 12/26/17 08:31 Dose: 10 ml Microbiology Results 12/12/17 10:20 Blood - Blood Aerobic Blood Culture - Final No growth in 5 days. 12/12/17 10:20 Blood - Blood Anaerobic Blood Culture - Final No growth in 5 days. Assessment/ Plan: Nephrology. No acute events overnight. CPS stable without CP. Limited IH/ ROS due to dementia. Case discussed with granddaughter at bedside; feels her mental status has improved. Vitals, medications, blood work and imaging reviewed in the chart. General: Alert, Cooperative, Cachectic HEENT: Atraumatic Neck: Supple Respiratory: Clear to auscultation bilaterally, Normal air movement Cardiovascular: Hip edema 1+, Regular rate/rhythm Gastrointestinal: Hypoactive, Soft and benign Musculoskeletal: No clubbing, No warmth Integumentary: No rashes, No cyanosis Neurological: Normal speech Laboratory Data (last 24 hrs) 12/12/17 11:42: PT 11.6, INR 0.98, APTT 25.9 12/12/17 11:42: WBC 15.3 H D, Hgb 7.8 L*, Hct 23.1 L, Plt Count 317 12/12/17 11:42: B-Natriuretic Peptide 3136 H 12/12/17 11:42: Sodium 146 H, Potassium 2.4 L*, BUN 102 H, Creatinine 2.37 H, Glucose 108, Magnesium 1.3 L*, Total Bilirubin 0.5, AST 20, ALT 12, Alkaline Phosphatase 125 H, Lipase 55 H Imagings Data: EXAM DESCRIPTION: CT - Abdomen Pelvis Wo Contrast - 12/12/2017 11:10 am CLINICAL HISTORY: Abdominal pain. Diarrhea COMPARISON: None TECHNIQUE: CT imaging of the abdomen and pelvis was performed without contrast. Solid organ, bowel and vascular assessment is limited due to lack of IV and oral contrast. All CT scans are performed using dose optimization technique as appropriate and may include automated exposure control or mA/KV adjustment according to patient size. FINDINGS: Small bilateral pleural effusions are present. Mild linear atelectasis is noted in both lung bases. The liver demonstrates no focal mass or biliary dilatation mild free fluid along the right liver edge is seen. A demonstrates mild free fluid along the inferior margin.The pancreas, adrenal glands and kidneys are within normal limits. The bulb of the gastrostomy tube is along the tract between the stomach in the skin. It is not within the stomach lumen. No bowel obstruction, free air, or abscess. Mild free fluid is seen in the pelvis. Aortoiliac atherosclerosis. The appendix is normal. Prominent degenerative changes present in both hips.Generalized anasarca pattern is seen. IMPRESSION: Small bilateral pleural effusions are present with mild free fluid in the abdomen and generalized anasarca pattern. Bulb of the feeding tube as detailed above is not within the stomach but rather in subcutaneous tissues. Conclusions/Impression: A/ CARMEN likely due to hypovolemia. CKD IV. Acidosis. Hypernatremia/ Dehydration. Hypokalemia/ Hyperkalemia. 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 Systolic CHF, A/C. Anemia in chronic illness. Hypomagnesemia. Moderate protein malnutrition/ Cachexia. Anasarca. Osteomyelitis of the foot. P/ Continue current POC and Medications. Reduce oral bicarb. Increase Coreg 12.5mg BID and titrate as needed. Maintain nutrition. Agree with abx for osteomyelitis. PRBCs as needed. No NSAIDs. AM labs. Daily weight.
[2017-12-26] MEDS ORDERED: CARVEDILOL 12.5 MG TAB PO SCH (09:00)
--- NOTE | 2017-12-26 10:17 | P.PN ---
Subjective Date of Service: 12/26/17 Primary Care Provider: Jaime SONI; Nephrology-Dr. Paiz Chief Complaint: Abnormal lab Subjective: Doing well Physical Examination - Vital Signs Temperature: 100.0 F Blood Pressure: 191/91 Pulse: 104 Respirations: 18 Pulse Ox (%): 98 - Physical Exam General: Alert, In no apparent distress, Cooperative, Demented HEENT: Atraumatic Neck: Supple Respiratory: Clear to auscultation bilaterally, Normal air movement Cardiovascular: Normal pulses, Regular rate/rhythm Gastrointestinal: Normal bowel sounds, Soft and benign, Non-distended, No masses , No rebound, No guarding, Other (PEG tube in place) Musculoskeletal: No tenderness, No warmth Neurological: Normal speech, Normal strength at 5/5 x4 extr, Normal tone, Dementia - Studies Medications List Reviewed: Yes Assessment & Plan - Problems (Diagnosis) (1) Diabetes mellitus Onset Date: 12/13/17 Current Visit: Yes Status: Chronic Plan: Will continue with Accu-Cheks and sliding scale. A1c 6.0. Patient has decided to send patient to a long-term acute care facility for long-term IV antibiotic therapy and rehabilitation. Benefits addressed with family. They are agreeable to this. Await transfer acceptance. Qualifiers: Diabetes mellitus type: type 2 Diabetes mellitus halfway insulin use: without intermediate manager use Diabetes mellitus complication status: with other specified complication Qualified Code(s): E11.69 - Type 2 diabetes mellitus with other specified complication (2) History of automatic internal cardiac defibrillator (AICD) Current Visit: Yes Status: Chronic Plan: Overall stable. Will continue monitor closely. Will monitor cardiac enzymes. Cardiology recommends no further intervention. Medications adjusted. (3) CHF (congestive heart failure) Onset Date: 12/13/17 Current Visit: Yes Status: Acute Plan: Overall stable. Will continue with medication. Qualifiers: Heart failure type: systolic Heart failure chronicity: acute on chronic Qualified Code(s): I50.23 - Acute on chronic systolic (congestive) heart failure (4) Atrial fibrillation Onset Date: 12/13/17 Current Visit: Yes Status: Chronic Plan: Stable at this time. Rate controlled. Patient not on chronic anti coagulation therapy due to risk for fall and bleeding. Qualifiers: Atrial fibrillation type: chronic Qualified Code(s): I48.2 - Chronic atrial fibrillation (5) Hypokalemia Onset Date: 12/13/17 Current Visit: Yes Status: Acute Plan: Will replace potassium. Replacement protocol in place. (6) Anemia Onset Date: 12/13/17 Current Visit: Yes Status: Acute Plan: Patient with anemia likely of chronic disease. Patient continues to get Procrit. Will monitor hemoglobin. Patient received 1 unit of blood. Monitor closely. Overall stable. Qualifiers: Anemia type: due to chronic kidney disease Chronic kidney disease stage: stage 4 (severe) Qualified Code(s): N18.4 - Chronic kidney disease, stage 4 ( severe); D63.1 - Anemia in chronic kidney disease (7) DM foot ulcer Onset Date: 12/13/17 Current Visit: Yes Status: Acute Plan: Patient has osteomyelitis of the right foot. Case discussed with infectious disease. IV antibiotic therapy has been adjusted. Patient will need Rocephin 1 g IV daily for 6 weeks. Awaiting transfer to long-term [facility] care facility. Qualifiers: Diabetic foot ulcer location: other Diabetes mellitus type: type 2 Laterality: right (8) Osteomyelitis Onset Date: 12/13/17 Current Visit: Yes Status: Acute Plan: Continue with IV antibiotic therapy. As above Qualifiers: Osteomyelitis type: unspecified type Osteomyelitis location: foot Laterality: right Qualified Code(s): M86.9 - Osteomyelitis, unspecified (9) Feeding tube dysfunction Onset Date: 12/13/17 Current Visit: Yes Status: Acute Plan: Patient now has feeding tube in place. Qualifiers: Encounter type: initial encounter Qualified Code(s): T85.598A - Other mechanical complication of other gastrointestinal prosthetic devices, implants and grafts, initial encounter (10) Acute kidney injury superimposed on CKD Onset Date: 08/27/17 Current Visit: No Status: Acute Plan: Patient with acute on chronic renal disease. Continue with Nephrology recommendations. Overall stable. No nonsteroidal anti-inflammatory use in the future. Future medications will need to be renally dosed. (11) CAD (coronary artery disease) Onset Date: 08/27/17 Current Visit: No Status: Chronic Plan: Continue with above plan of care. Qualifiers: (12) Dementia Onset Date: 08/27/17 Current Visit: No Status: Suspected Plan: Patient may have underlying dementia. It is been difficult to get bone scan done due to her dementia. Will not force bone scan on patient. Qualifiers: (13) Hypertension Onset Date: 08/27/17 Current Visit: No Status: Chronic Plan: Medications adjusted. Carvedilol increased by Nephrology. Will continue to adjust and monitor. Qualifiers: Hypertension type: essential hypertension Qualified Code(s): I10 - Essential (primary) hypertension (14) Hypomagnesemia Onset Date: 12/13/17 Current Visit: Yes Status: Acute Plan: Will monitor and replace appropriately. Replacement protocol in place. (15) Chronic kidney disease (CKD) Current Visit: No Status: Acute Plan: Nephrology consulted. Renal function stable this time. Will discuss with nephrology. Qualifiers: Chronic kidney disease stage: stage 4 (severe) Qualified Code(s): N18.4 - Chronic kidney disease, stage 4 (severe) (16) Malnutrition Onset Date: 12/13/17 Current Visit: Yes Status: Chronic Plan: Patient taking oral intake well. Feeding tube was replaced in the event that she needs this. Qualifiers: Malnutrition type: protein-calorie malnutrition Protein-calorie malnutrition severity: severe Qualified Code(s): E43 - Unspecified severe protein-calorie malnutrition (17) Pleural effusion Onset Date: 12/13/17 Current Visit: Yes Status: Acute Plan: Chest x-ray shows improvement. Will continue with Lasix (18) Anasarca Onset Date: 12/13/17 Current Visit: Yes Status: Resolved Plan: Will continue with diuretics. This has resolved (19) Hypernatremia Onset Date: 12/13/17 Current Visit: Yes Status: Resolved Plan: Likely from malnutrition and dehydration. This has resolved. Discharge Plan: LTAC Plan to discharge in: 24 Hours Time Spent Managing Pts Care (In Minutes): 55
--- NOTE | 2017-12-26 15:13 | RAD REPORT ---
EXAM DESCRIPTION: RAD - Barium Swallow Modified - 12/26/2017 2:52 pm CLINICAL HISTORY: Suspected aspiration COMPARISON: None. TECHNIQUE: The patient was given liquid, semi-solid and solid forms of barium. Lateral view fluorosc opic imaging was performed in conjunction with speech pathology service. FINDINGS: Exam was limited. Patient was unable to fully cooperate with the examination. Laryngeal penetration was seen with poor clearing. There was contrast pooling in the valleculae and p iriform sinuses. Patient demonstrated a delayed swallow reflex. No aspiration confirmed during this e xamination. IMPRESSION: Modified barium swallow as detailed above and on speech pathology report.
--- NOTE | 2017-12-26 15:50 | P.DS ---
Admission Date: 12/12/17 Discharge Date: 12/26/17 Primary Care Provider: Jaime SONI; Nephrology-Dr. Paiz Disposition: [facility] Discharge Condition: GOOD Reason for Admission: Abnormal lab Consultations: Infectious disease-Dr. Suarez Surgery-Dr. Saldana/Dr. Santiago Nephrology-Dr. Lewis Cardiology-Dr. Crispin MOBLEY-Dr. Mcdowell - Problems (1) Diabetes mellitus Onset Date: 12/13/17 Current Visit: Yes Status: Chronic Qualifiers: Diabetes mellitus type: type 2 Diabetes mellitus rat exterminator insulin use: without rat exterminator use Diabetes mellitus complication status: with other specified complication Qualified Code(s): E11.69 - Type 2 diabetes mellitus with other specified complication (2) History of automatic internal cardiac defibrillator (AICD) Current Visit: Yes Status: Chronic (3) CHF (congestive heart failure) Onset Date: 12/13/17 Current Visit: Yes Status: Acute Qualifiers: Heart failure type: systolic Heart failure chronicity: acute on chronic Qualified Code(s): I50.23 - Acute on chronic systolic (congestive) heart failure (4) Atrial fibrillation Onset Date: 12/13/17 Current Visit: Yes Status: Chronic Qualifiers: Atrial fibrillation type: chronic Qualified Code(s): I48.2 - Chronic atrial fibrillation (5) Hypokalemia Onset Date: 12/13/17 Current Visit: Yes Status: Acute (6) Anemia Onset Date: 12/13/17 Current Visit: Yes Status: Acute Qualifiers: Anemia type: due to chronic kidney disease Chronic kidney disease stage: stage 4 (severe) Qualified Code(s): N18.4 - Chronic kidney disease, stage 4 ( severe); D63.1 - Anemia in chronic kidney disease (7) DM foot ulcer Onset Date: 12/13/17 Current Visit: Yes Status: Acute Qualifiers: Diabetic foot ulcer location: other Diabetes mellitus type: type 2 Laterality: right (8) Osteomyelitis Onset Date: 12/13/17 Current Visit: Yes Status: Acute Qualifiers: Osteomyelitis type: unspecified type Osteomyelitis location: foot Laterality: right Qualified Code(s): M86.9 - Osteomyelitis, unspecified (9) Feeding tube dysfunction Onset Date: 12/13/17 Current Visit: Yes Status: Acute Qualifiers: Encounter type: initial encounter Qualified Code(s): T85.598A - Other mechanical complication of other gastrointestinal prosthetic devices, implants and grafts, initial encounter (10) Acute kidney injury superimposed on CKD Onset Date: 08/27/17 Current Visit: No Status: Acute (11) CAD (coronary artery disease) Onset Date: 08/27/17 Current Visit: No Status: Chronic Qualifiers: (12) Dementia Onset Date: 08/27/17 Current Visit: No Status: Suspected Qualifiers: (13) Hypertension Onset Date: 08/27/17 Current Visit: No Status: Chronic Qualifiers: Hypertension type: essential hypertension Qualified Code(s): I10 - Essential (primary) hypertension (14) Hypomagnesemia Onset Date: 12/13/17 Current Visit: Yes Status: Acute (15) Chronic kidney disease (CKD) Current Visit: No Status: Acute Qualifiers: Chronic kidney disease stage: stage 4 (severe) Qualified Code(s): N18.4 - Chronic kidney disease, stage 4 (severe) (16) Malnutrition Onset Date: 12/13/17 Current Visit: Yes Status: Chronic Qualifiers: Malnutrition type: protein-calorie malnutrition Protein-calorie malnutrition severity: severe Qualified Code(s): E43 - Unspecified severe protein-calorie malnutrition (17) Pleural effusion Onset Date: 12/13/17 Current Visit: Yes Status: Acute (18) Anasarca Onset Date: 12/13/17 Current Visit: Yes Status: Resolved (19) Hypernatremia Onset Date: 12/13/17 Current Visit: Yes Status: Resolved Brief History of Present Illness: 82-year-old Afro-[place]ene[place] female presented emergency room after she was sent from the assisted due to abnormal lab. Apparently she had lab that showed a low potassium and elevated white count. There was also some concern for malnutrition. At bedside her daughter who has medical irlla-sc-wnlxwzjf was present. The patient denies any significant chest pain, shortness of breath, fever or chills. The daughter reports that the patient has had some mild diarrhea. She also has a right foot ulcer that is been present for some time. Some seepage is noted. The daughter further reports that the patient was originally in the [facility] ER. At that time she is found to be in acute renal failure. She was then transferred to [facility]. From [facility] she went to [facility] long-term acute care facility thereafter she went to [facility] and eventually to the assisted. During that time the daughter reports that the patient has had malnutrition. The patient now has a feeding tube. The patient has also developed some ulcers to the sacral region and to the right foot. Her major medical problems include CAD, hypertension, atrial fibrillation, diabetes, hyperlipidemia, anemia chronic disease, chronic renal disease, congestive heart failure, and chronic diarrhea. In the ER the patient was evaluated. Initial lab work shows a low potassium. Creatinine 2.37 with a GFR 24. BNP elevated at 3136. Lipase 55. Albumin low at 2.0. White count 15.3, hemoglobin 7.8. CT chest and abdomen showed bilateral pleural effusions. Edematous changes noted to the abdomen from anasarca. The bowl bowl of the feeding tube does not appear in the stomach. During this time the tube was pushed in by the ER physician. A recheck x-ray with Gastrografin showed that he was in place. Chest x-ray showed mild pulmonary edema. Due to the multiple changes on lab and presentation the patient was admitted for evaluation and treatment. I was asked to admit the patient. When I saw the patient the ER, she did not appear in any significant distress. Patient appears cachectic and malnourished. Hospital Course: During the course her stay the patient had the diabetic foot ulcer evaluated. Patient was not able to get an MRI since she has a pacemaker/defibrillator. Bone scan was recommended. Initially the patient did not want to have it done. She eventually had this done. Osteomyelitis was identified. Surgery and infectious disease evaluated the patient. Infectious disease recommended IV antibiotic therapy for 6 weeks. During this time, Infectious Disease has made adjustments to IV antibiotic therapy to vancomycin and Zosyn. Patient continue with current wound care. Patient has been accepted to long-term acute care facility to continue her care. Patient be transferred. Patient has diabetes. Patient will continue with sliding scale. Blood sugars have remained stable. Patient has hypertension. Patient will continue with carvedilol 12.5 mg 1 pill twice daily. This can be further monitored and adjusted. Patient presented with acute on chronic renal disease. Nephrology was consulted. It adjustments in medication was done. Patient currently on bicarb 4 times a day. Renal function will be monitored closely. Patient has underlying acute on chronic CHF with systolic dysfunction. Cardiology was consulted. This remained stable during her stay. Patient initially required BiPAP. This has been weaned off. Patient stable this time. Patient continue with a 1500 cc per day fluid restriction. Patient has atrial fibrillation. Patient continue with digoxin 0.125 daily. Patient currently on DVT prophylaxis Lovenox. Recommendation is no chronic anti coagulation therapy due to risk of fall and bleeding. Patient has CAD. She will continue with Plavix daily. Patient has malnutrition. Patient has PEG tube in place. This was replaced during her stay by GI. Patient now eating at this time. Patient did have a modified barium swallow to evaluate for possible dysphagia. This was unremarkable. Patient currently taking oral intake at this time. Patient may benefit with supplementation if needed through the PEG tube. Patient has patient has anemia of chronic disease. This can be monitored closely. Patient has dementia. This has remained stable. Patient is currently do not resuscitate. Vital Signs/Physical Exam: Temp Pulse Resp BP Pulse Ox 100.1 F 72 18 161/71 H 100 12/26/17 12:00 12/26/17 12:00 12/26/17 12:00 12/26/17 12:00 12/26/17 12:00 General: Alert, Cooperative, Demented HEENT: Atraumatic Neck: Supple Respiratory: Clear to auscultation bilaterally, Normal air movement Cardiovascular: Regular rate/rhythm Gastrointestinal: Normal bowel sounds, Soft and benign, Non-distended, No tenderness, No masses, No rebound, No guarding Musculoskeletal: No erythema, No tenderness, No warmth Integumentary: Other (Right foot bandaged) Neurological: Normal speech, Normal strength at 5/5 x4 extr, Dementia Laboratory Data at Discharge: WBC 12.4 K/uL (4.3-10.9) H D 12/26/17 05:25 Hgb 8.8 g/dL (12.0-15.0) L 12/26/17 05:25 Hct 26.2 % (36.0-45.0) L 12/26/17 05:25 Plt Count 255 K/uL (152-406) 12/26/17 05:25 PT 11.6 SECONDS (9.5-12.5) 12/12/17 11:42 INR 0.98 12/12/17 11:42 APTT 25.9 SECONDS (24.3-36.9) 12/12/17 11:42 Sodium 137 mEq/L (135-145) 12/26/17 05:25 Potassium 4.3 mEq/L (3.6-5.0) 12/26/17 05:25 BUN 57 mg/dL (6-20) H 12/26/17 05:25 Creatinine 2.24 mg/dL (0.44-1.00) H 12/26/17 05:25 Glucose 202 mg/dL (65-120) H 12/26/17 05:25 Uric Acid 11.8 mg/dL (2.6-8.0) H 12/19/17 05:46 Phosphorus 3.0 mg/dL (2.5-4.3) 12/22/17 04:05 Magnesium 1.8 mg/dL (1.8-2.5) 12/26/17 05:25 Total Bilirubin 0.4 mg/dL (0.3-1.2) 12/23/17 05:40 AST 15 IU/L (10-42) 12/23/17 05:40 ALT 8 IU/L (10-60) L 12/23/17 05:40 Alkaline Phosphatase 106 IU/L (42-121) 12/23/17 05:40 B-Natriuretic Peptide 3136 pg/ml (<=100) H 12/12/17 11:42 Triglycerides 100 mg/dL (35-160) 12/13/17 09:50 Cholesterol 96 mg/dL (<200) 12/13/17 09:50 HDL Cholesterol 36 mg/dL (29-89) 12/13/17 09:50 Cholesterol/HDL Ratio 2.67 12/13/17 09:50 Lipase 55 U/L (22-51) H 12/12/17 11:42 Home Medications: Carvedilol [Coreg] 12.5 mg PO BID 10/22/16 Clopidogrel Bisulfate [Plavix*] 75 mg PO DAILY 10/22/16 Digoxin [Lanoxin] 0.125 mg PO DAILY 10/22/16 Furosemide [Lasix*] 40 mg PO BID 10/22/16 Aspirin 1 tab PO DAILY 08/27/17 Metformin HCl [Glucophage*] 500 mg PO BID 08/27/17 Collagenase [Santyl Ointment*] 1 appl TOP DAILY #1 tube 08/28/17 Nepro Shake [Nepro] 0 ml FT SEECOM 12/13/17 Patient Discharge Instructions: Patient be transferred to long-term acute facility. Continue with current medications. Patient has osteomyelitis of the right foot likely from diabetes. Patient currently on vancomycin and Zosyn. Patient will continue with IV antibiotic therapy for 6 weeks. Patient will continue with wound care. Patient has other medical problems include diabetes, hypertension, CHF-systolic dysfunction, CAD, history of defibrillator, acute on chronic renal disease, anemia of chronic disease, atrial fibrillation not on chronic anti coagulation, dementia. Patient will continue with current medications as described in summary. Diet: Renal Activity: Fall precautions Time spent managing pt's care (in minutes): 55
--- NOTE | 2017-12-26 16:22 | PN ---
Subjective: The patient lying in bed. No new acute events. Chart reviewed. Objective: Vital Signs: Temperature 100.1, pulse 72, respirations 18, blood pressure 161/71. Lungs: Basal crackles. Heart: S1, S2. Regular. Abdomen: Soft, nontender. Bowel sounds positive. Extremities: Trace edema. Laboratory Data: WBC 12.4, hemoglobin 8.8, platelets are 255. Chemistry shows sodium 137, potassium 4.3, chloride 107, bicarb 24, BUN 57, creatinine 2.24, glucose is 202. Current Medications: Include Rocephin. Assessment And Plan: At this time, we will recommend to switch patient back to vancomycin and Zosyn as her leukocytosis is worsening and she is developing fever also. We will follow the patient star kurtz NF/MODL Voice ID: [id number] Report ID: [id number]
[2017-12-26] MEDS ORDERED: VANCOMYCIN 750 MG in NA CHLORIDE 0.9% 150 ML IVPB SCH (17:00)
[2017-12-26] MEDS: ENOXAPARIN 30 MG/0.3 ML SQ SCH (17:00)
[2017-12-26] MEDS ORDERED: PIPER/TAZO/NS 2.25gm 2.25 GM/50 ML BAG IVPB SCH (17:00)
[2017-12-27] MEDS ORDERED: VANCOMYCIN 0.75 GM in NA CHLORIDE 0.9% 500 ML IVPB SCH (09:00)
[2017-12-27 13:50] LABS: Urine Blood 2+ (NEG); Urine Glucose NEGATIVE (NEG); Urine Protein 1+ (NEG); Urine Specific Gravity 1.015 (1.005-1.030); Urine pH 5.5 (5.0-7.0)
== END 2017-12-26 17:57 | DRG 637 ==
LOC: ER 10:12 → ERHOLD 12:44 → 2ND 15:59
PROVIDERS: ADMIT Internal Medicine; ATTEND Family Medicine
PROC: 0T9B70Z Drainage of Bladder with Drainage Device, Via Natural or Artificial Opening (ICD-10-PCS; 2017-12-12)
PROC: 02HV33Z Insertion of Infusion Device into Superior Vena Cava, Percutaneous Approach (ICD-10-PCS; 2017-12-21)
PROC: 0JH60XZ Insertion of Tunneled Vascular Access Device into Chest Subcutaneous Tissue and Fascia, Open Approach (ICD-10-PCS; principal; 2017-12-21 09:00)
PROC: 5A09357 Assistance with Respiratory Ventilation, Less than 24 Consecutive Hours, Continuous Positive Airway Pressure (ICD-10-PCS; 2017-12-22)
DX: E11.69 Type 2 diabetes mellitus with other specified complication (principal); I50.23 Acute on chronic systolic (congestive) heart failure; E44.0 Moderate protein-calorie malnutrition; I13.0 Hypertensive heart and chronic kidney disease with heart failure and stage 1 through stage 4 chronic kidney disease, or unspecified chronic kidney disease; K94.23 Gastrostomy malfunction; N39.0 Urinary tract infection, site not specified; E87.0 Hyperosmolality and hypernatremia; E87.2 Acidosis; R64 Cachexia; M86.172 Other acute osteomyelitis, left ankle and foot; N30.00 Acute cystitis without hematuria; N17.0 Acute kidney failure with tubular necrosis; N18.4 Chronic kidney disease, stage 4 (severe); I25.10 Atherosclerotic heart disease of native coronary artery without angina pectoris; E78.5 Hyperlipidemia, unspecified; I48.91 Unspecified atrial fibrillation; E11.22 Type 2 diabetes mellitus with diabetic chronic kidney disease; I48.2 Chronic atrial fibrillation; E87.6 Hypokalemia; D63.1 Anemia in chronic kidney disease; E11.621 Type 2 diabetes mellitus with foot ulcer; E83.42 Hypomagnesemia; E86.0 Dehydration; Z66 Do not resuscitate; E11.65 Type 2 diabetes mellitus with hyperglycemia; G30.9 Alzheimer's disease, unspecified; F02.80 Dementia in other diseases classified elsewhere, unspecified severity, without behavioral disturbance, psychotic disturbance, mood disturbance, and anxiety; Y83.3 Surgical operation with formation of external stoma as the cause of abnormal reaction of the patient, or of later complication, without mention of misadventure at the time of the procedure; Z99.2 Dependence on renal dialysis; Z95.810 Presence of automatic (implantable) cardiac defibrillator; Z68.27 Body mass index [BMI] 27.0-27.9, adult
CPT/HCPCS: 36415; 49465; 51702; 71045; 74176; 74230; 76000; 78315; 80048; 80053; 80061; 80076; 80162; 80202; 81001; 81003; 81015; 82274; 82550; 82553; 82607; 82728; 82746; 82805; 82962; 83036; 83540; 83690; 83735; 83880; 84100; 84132; 84145; 84439; 84443; 84466; 84484; 84550; 85014; 85018; 85025; 85044; 85610; 85730; 86850; 86900; 86901; 87040; 87045; 87046; 87086; 87088; 87493; 93005; 93306; 94660; 99285; A9503; J0690; J0696; J0885; J1450; J1644; J1650; J1940; J2250; J2270; J2543; J3370; J3475; J3590; J7030; P9016

== ENCOUNTER 2018-02-12 09:35 | Inpatient (IN) | payer OTHER ==
--- OUTSIDE RECORDS SUMMARY | 2018-02-12 09:46 | XMS REPORT ---
:1935 [facility] Address [address] [place] [address] Dr. R[address] [place] [address] Care Team Providers Name Role Phone HARDIK [...] Department ID 2017-09-10 2017-09-10 Outpatient Telma COOK [facility] [id number] 18:56:00 18:56:00 HARDIK 2017-07-01 2017-07-04 Inpatient Kylie DAWOOD LIZARRAGA TELE [id number] 22:15:00 15:46:00 BYRON Results Test Description Test Time Test Comments Text Results Atomic Results Result Comments Sed Rate ESR ([place]) 2017-09-10 22:33:00 Test Item Value Reference Range Comments ESR (test code=HESR) 44 mm/Hr 0-20 CBC with [id number] 20:59:00 Test Item Value Reference Range Comments [...] Lymph Abs (test code=ALYMPH) 1.6 K/cumm 0.5-4.6 [place] Abs (test code=AMONO) 0.5 K/cumm 0.0-1.2 Eos Abs (test code=AEOS) 0.10 K/cumm 0.00-0.74 Baso Abs (test code=ABASO) 0.0 K/cumm 0.00-0.21 Hypochromic (test code=HYPO) Slight Lipid [id number] 20:09:00 Test Item Value Reference Range Comments Cholesterol (test 208 mg/dL 0-200 code=CHOL) Triglycerides (test 178 mg/dL 9-200 code=TRIG) HDL (test code=HDL) 45 mg/dL 50-60 Chol/HDL (test 4.6 Ratio 0.0-4.4 code=CHOLPHDL) LDL, Calculated (test 127 mg/dL 0-130 (NOTE)RISK OF HEART code=LDLC) DISEASEPublished by [place] Heart AssociationAnalyte Optimal Boderline Increased RiskCHOL <200 200-239 >240TRIG <150 150-199 >200HDL Male: >60 <40HDL Female: >60 <50LDL <100 130-159 >160LDL NEAR OPTIMAL IS 100-129 VLDL (test code=VLDL) 36 mg/dL 5-40 LDL/HDL (test code=LDLPHDL) 3 [id number] 20:09:00 Test Item Value Reference Range Comments Lipase (test code=LIP) 31 U/L 13-60 [id number] 20:09:00 Test Item Value Reference Range Comments Amylase (test code=SHAKIR) 92 U/L 28-100 [id number] 20:09:00 Test Item Value Reference Range Comments NT ProBnp (test code=PBNP) 36129 pg/mL 0-449 Comprehensive Metabolic [id number] 20:09:00 Test Item Value Reference Range Comments [...] race is not provided, and the patient isAfrican-Guamanian, multiply by 1.212. If sex is not provided, and thepatient is female, multiply by 0.742. Results for patients <18 years ofage have not been validated by the MDRD study and should be interpretedwith caution.eGFR Result Interpretation:eGFR > or=60 is in the Normal RangeeGFR < 60 may mean kidney diseaseeGFR < 15 may mean kidney failureRanges recommended by the National Kidney Foundation,http://nkdep.nih .gov BLOOD [id number] 23:30:00 Test Item Value Reference Range Comments Culture Observations (test code=COB1) NO GROWTH AFTER 5 DAYS BLOOD [id number] 23:30:00 Test Item Value Reference Range Comments Culture Observations (test code=COB1) NO GROWTH AFTER 5 DAYS WOUND/SKIN/ABS.&GRAMSTAIN [id number] 08:20:00 Test Item Value Reference Range Comments [...] (test code=lev) ug/mL GLUCOMETER GLUCOSE- LAB USE [id number] 11:39:00 Test Item Value Reference Range Comments GLUCOMETER (test code=GMG) 113 mg/dL 70-100 DAILY MAINTENANCEMeter ID: [id number]: [id number] JAYY NAVARRO URINE [id number] 11:21:00 Test Item Value Reference Range Comments Isolate 1 (test code=ISO1) Pseudomonas aeruginosa piperacillin/tazobactam (test ug/mL code=tzp) ceftazidime (test code=santos) ug/mL cefepime (test code=fep) ug/mL meropenem (test code=mem) ug/mL gentamicin (test code=gm) ug/mL tobramycin (test code=tob) ug/mL levofloxacin (test code=lev) ug/mL WOUND/SKIN/ABS.&GRAMSTAIN [id number] 10:08:00 Test Item Value Reference Range Comments [...] (test code=lev) ug/mL GLUCOMETER GLUCOSE- LAB USE [id number] 05:13:00 Test Item Value Reference Range Comments GLUCOMETER (test code=GMG) 81 mg/dL 70-100 CLEANED METERMeter ID: [id number]: [id number] LETDWAYNE GOLDMAN PRO TIME AND [id number] 04:39:00 Test Item Value Reference Range Comments [...] Heparin. Order Code is ANTI-XA COMPREHENSIVE METABOLIC [id number] 04:32:00 Test Item Value Reference Range Comments [...] (test code=RBCMOR) NORMAL GLUCOMETER GLUCOSE- LAB USE [id number] 21:05:00 Test Item Value Reference Range Comments GLUCOMETER (test code=GMG) 116 mg/dL 70-100 Meter ID: [id number]: [id number] ROBERT GOLDMAN GLUCOMETER GLUCOSE- LAB USE [id number] 16:42:00 Test Item Value Reference Range Comments GLUCOMETER (test code=GMG) 247 mg/dL 70-100 DAILY MAINTENANCEMeter ID: [id number]: [id number] JAYY NAVARRO GLUCOMETER GLUCOSE- LAB USE [id number] 13:21:00 Test Item Value Reference Range Comments GLUCOMETER (test code=GMG) 206 mg/dL 70-100 DAILY MAINTENANCEMeter ID: [id number]: 9086 JAYY NAVARRO U/S KIDNEY (RENAL)2017-07-03 12:24:18RENAL ULTRASOUNDLocation Code: [id number] HISTORY: arfCOMPARISON: None.COMMENT: Real-time sonographic images of [...] acute abnormality.U/S ART FLW DOPPLER STELLA LOW [id number] 11:52:11BILATERAL LOWER EXTREMITY ARTERIAL DOPPLER :Location code: [id number] HISTORY: Bilateral leg pain with peripheral vascular [...] RBC MORPH (test code=RBCMOR) NORMAL COMPREHENSIVE METABOLIC [id number] 06:16:00 Test Item Value Reference Range Comments [...] 8 IU/L <=78 GLUCOMETER GLUCOSE- LAB USE [id number] 05:30:00 Test Item Value Reference Range Comments GLUCOMETER (test code=GMG) 118 mg/dL 70-100 CLEANED METERMeter ID: [id number]: [id number] MARGE IQR ConsultingSU GLUCOMETER GLUCOSE- LAB USE [id number] 22:27:00 Test Item Value Reference Range Comments GLUCOMETER (test code=GMG) 158 mg/dL 70-100 Meter ID: [id number]: [id number] MARGE OWSU GLUCOMETER GLUCOSE- LAB USE [id number] 21:35:00 Test Item Value Reference Range Comments GLUCOMETER (test code=GMG) 63 mg/dL 70-100 Meter ID: [id number]: 2907 MARGE OWSU EOSINOPHIL SMEAR [id number] 19:44:00 Test Item Value Reference Range Comments EO URINE (test code=EOU) MODERATE /OIF NONE SEEN CREATININE RANDOM [id number] 19:30:00 Test Item Value Reference Range Comments CREA RAND (test code=CREAR) 47.8 mg/dL NRR (test code=NRR) * NO REFRENCE RANGE AVAILABLE FOR RANDOM SPECIMEN* PROTEIN URINE [id number] 19:18:00 Test Item Value Reference Range Comments HOWARD DOE (test code=WY) 76 mg/dL NRR (test code=NRR) * NO REFRENCE RANGE AVAILABLE FOR RANDOM SPECIMEN* GLUCOMETER GLUCOSE- LAB USE [id number] 15:24:00 Test Item Value Reference Range Comments GLUCOMETER (test code=GMG) 148 mg/dL 70-100 CLEANED METERMeter ID: [id number]: [id number] ISAAC YU GLUCOMETER GLUCOSE- LAB USE [id number] 12:43:00 Test Item Value Reference Range Comments GLUCOMETER (test code=GMG) 184 mg/dL 70-100 Meter ID: [id number]: [id number] NICOL SATYA CARDIAC [id number] 12:26:00 Test Item Value Reference Range Comments TROPONIN I (test code=A84) 0.098 ng/mL 0.000-0.045 CKMB (test code=A49) 5.0 ng/mL <=3.6 CPK (test code=32A) 58 IU/L 26-192 [id number] 12:23:00 Test Item Value Reference Range Comments Hb A1C % (test code=HBA) 8.8 % 4.2-6.3 URINALYSIS WITH [id number] 12:15:00 Test Item Value Reference Range Comments [...] NO RBC MORPH (test code=RBCMOR) NORMAL CARDIAC [id number] 05:42:00 Test Item Value Reference Range Comments TROPONIN I (test code=A84) 0.105 ng/mL 0.000-0.045 CKMB (test code=A49) 4.2 ng/mL <=3.6 CPK (test code=32A) 47 IU/L 26-192 CBC with [id number] 05:10:00 Test Item Value Reference Range Comments [...] Lymph Abs (test code=ALYMPH) 1.2 K/cumm 0.5-4.6 [place] Abs (test code=AMONO) 0.4 K/cumm 0.0-1.2 Eos Abs (test code=AEOS) 0.07 K/cumm 0.00-0.74 Baso Abs (test code=ABASO) 0.0 K/cumm 0.00-0.21 RBC Morphology (test Slight Hypochromia code=RBCMRPH) Platelet Est (test code=PLTEST) Adequate Platelets on Smear Glycosylated [id number] 03:33:00 Test Item Value Reference Range Comments HBA1c (test code=HBA1C) 9.5 % 4.8-5.9 Comprehensive Metabolic [id number] 00:02:00 Test Item Value Reference Range Comments [...] race is not provided, and the patient isAfrican-Guamanian, multiply by 1.212. If sex is not provided, and thepatient is female, multiply by 0.742. Results for patients <18 years ofage have not been validated by the MDRD study and should be interpretedwith caution.eGFR Result Interpretation:eGFR > or=60 is in the Normal RangeeGFR < 60 may mean kidney diseaseeGFR < 15 may mean kidney failureRanges recommended by the National Kidney Foundation,http://nkdep.nih. gov Lipid [id number] 00:02:00 Test Item Value Reference Range Comments Cholesterol (test 251 mg/dL 0-200 code=CHOL) Triglycerides (test 201 mg/dL 9-200 code=TRIG) HDL (test code=HDL) 44 mg/dL 50-60 Chol/HDL (test 5.7 Ratio 0.0-4.4 code=CHOLPHDL) LDL, Calculated (test 167 0-130 (NOTE)RISK OF HEART code=LDLC) DISEASEPublished by [place] Heart AssociationAnalyte Optimal Boderline Increased RiskCHOL <200 200-239 >240TRIG <150 150-199 >200HDL Male: >60 <40HDL Female: >60 <50LDL <100 130-159 >160LDL NEAR OPTIMAL IS 100-129 VLDL (test code=VLDL) 40 mg/dL 5-40 LDL/HDL (test code=LDLPHDL) 4
--- OUTSIDE RECORDS SUMMARY | 2018-02-12 09:46 | XMS REPORT | Clinical Summary ---
:1935 Author Organization [facility] Address [address] [place] [address] Care Team Providers Name Role Phone Ester [...] Overview: Added automatically from request for surgery [id number] Encounters Date Type Specialty Care Team Description 11/12/2017 Anesthesia Event Gastroenterology Marija Can MD 11/12/2017 Procedure Pass Gastroenterology 11/12/2017 Surgery Gastroenterology Rosa, EGD WITH PEG Denny Khan MD INSERTION 11/07/2017 Anesthesia Event Intensive Care Junie Hodgson CRNA 11/07/2017 Procedure Pass Gastroenterology 11/07/2017 Surgery Gastroenterology Rosa EGD WITH control of Denny Khan MD bleeding 11/07/2017 Procedure Pass General Surgery 11/03/[address] 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 POC GLUCOSE Routine 11/13/2017 7:31 Results for this AM CDT procedure are in the results section. ESTIMATED GFR Routine 11/13/2017 4:45 Results for this AM CDT procedure are in the results section. COMPREHENSIVE Routine 11/13/2017 4:45 Results for this METABOLIC PANEL AM CDT procedure are in the results section. HC COMPLETE BLD COUNT Routine 11/13/2017 4:45 Results for this W/AUTO DIFF AM CDT procedure are in the results section. POC GLUCOSE Routine 11/13/2017 4:30 Results for this AM CDT procedure are in the results section. POC GLUCOSE Routine 11/12/2017 8:41 Results for this PM CDT procedure are in the results section. POC GLUCOSE Routine 11/12/2017 4:03 Results for this PM CDT procedure are in the results section. POC GLUCOSE Routine 11/12/2017 11:23 Results for this AM CDT procedure are in the results section. POC GLUCOSE Routine 11/12/2017 10:45 Results for this AM CDT procedure are in the results section. POC GLUCOSE Routine 11/12/2017 10:43 Results for this AM CDT procedure are in the results section. POC GLUCOSE Routine 11/12/2017 10:41 Results for this AM CDT procedure are in the results section. EGD WITH PEG INSERTION 11/12/2017 8:45 Toxic metabolic AM CDT encephalopathy POC GLUCOSE Routine 11/12/2017 7:27 Results for this AM CDT procedure are in the results section. PROTHROMBIN TIME WITH Routine 11/12/2017 6:20 Results for this INR AM CDT procedure are in the results section. ESTIMATED GFR Routine 11/12/2017 6:20 Results for this AM CDT procedure are in the results section. COMPREHENSIVE Routine 11/12/2017 6:20 Results for this METABOLIC PANEL AM CDT procedure are in the results section. HC COMPLETE BLD COUNT Routine 11/12/2017 6:20 Results for this W/AUTO DIFF AM CDT procedure are in the results section. POC GLUCOSE Routine 11/12/2017 6:04 Results for this AM CDT procedure are in the results section. POC GLUCOSE Routine 11/12/2017 2:34 Results for this AM CDT procedure are in the results section. POC GLUCOSE Routine 11/11/2017 9:15 Results for this PM CDT procedure are in the results section. POC GLUCOSE Routine 11/11/2017 5:11 Results for this PM CDT procedure are in the results section. POC GLUCOSE Routine 11/11/2017 12:29 Results for this PM CDT procedure are in the results section. POC GLUCOSE Routine 11/11/2017 7:20 Results for this AM CDT procedure are in the results section. ESTIMATED GFR Routine 11/11/2017 4:10 Results for this AM CDT procedure are in the results section. PHOSPHORUS LEVEL Routine 11/11/2017 4:10 Results for this AM CDT procedure are in the results section. MAGNESIUM LEVEL Routine 11/11/2017 4:10 Results for this AM CDT procedure are in the results section. HC COMPLETE BLD COUNT Routine 11/11/2017 4:10 Results for this W/AUTO DIFF AM CDT procedure are in the results section. BASIC METABOLIC PANEL Routine 11/11/2017 4:10 Results for this AM CDT procedure are in the results section. POC GLUCOSE Routine 11/11/2017 3:45 Results for this AM CDT procedure are in the results section. POC GLUCOSE Routine 11/10/2017 8:26 Results for this PM CDT procedure are in the results section. POC GLUCOSE Routine 11/10/2017 5:19 Results for this PM CDT procedure are in the results section. POC GLUCOSE Routine 11/10/2017 11:39 Results for this AM CDT procedure are in the results section. POC GLUCOSE Routine 11/10/2017 7:17 Results for this AM CDT procedure are in the results section. ESTIMATED GFR Routine 11/10/2017 4:30 Results for this AM CDT procedure are in the results section. PHOSPHORUS LEVEL Routine 11/10/2017 4:30 Results for this AM CDT procedure are in the results section. MAGNESIUM LEVEL Routine 11/10/2017 4:30 Results for this AM CDT procedure are in the results section. HC COMPLETE BLD COUNT Routine 11/10/2017 4:30 Results for this W/AUTO DIFF AM CDT procedure are in the results section. BASIC METABOLIC PANEL Routine 11/10/2017 4:30 Results for this AM CDT procedure are in the results section. POC GLUCOSE Routine 11/10/2017 2:19 Results for this AM CDT procedure are in the results section. POC GLUCOSE Routine 11/09/2017 8:36 Results for this PM CDT procedure are in the results section. POC GLUCOSE Routine 11/09/2017 5:54 Results for this PM CDT procedure are in the results section. POC GLUCOSE Routine 11/09/2017 1:18 Results for this PM CDT procedure are in the results section. POC GLUCOSE Routine 11/09/2017 9:18 Results for this AM CDT procedure are in the results section. POC GLUCOSE Routine 11/09/2017 5:43 Results for this AM CDT procedure are in the results section. ESTIMATED GFR Routine 11/09/2017 4:05 Results for this AM CDT procedure are in the results section. PROTHROMBIN TIME WITH Routine 11/09/2017 4:05 Results for this INR AM CDT procedure are in the results section. MAGNESIUM LEVEL Routine 11/09/2017 4:05 Results for this AM CDT procedure are in the results section. HC COMPLETE BLD COUNT Routine 11/09/2017 4:05 Results for this W/AUTO DIFF AM CDT procedure are in the results section. BASIC METABOLIC PANEL Routine 11/09/2017 4:05 Results for this AM CDT procedure are in the results section. POC GLUCOSE Routine 11/09/2017 1:33 Results for this AM CDT procedure are in the results section. POC GLUCOSE Routine 11/09/2017 1:00 Results for this AM CDT procedure are in the results section. POC GLUCOSE Routine 11/08/2017 9:28 Results for this PM CDT procedure are in the results section. POC GLUCOSE Routine 11/08/2017 4:55 Results for this PM CDT procedure are in the results section. POC GLUCOSE Routine 11/08/2017 12:17 Results for this PM CDT procedure are in the results section. HEMOGLOBIN & Timed 11/08/2017 10:05 Results for this HEMATOCRIT AM CDT procedure are in the results section. POC GLUCOSE Routine 11/08/2017 8:39 Results for this AM CDT procedure are in the results section. HEMOGLOBIN & Timed 11/08/2017 6:00 Results for this HEMATOCRIT AM CDT procedure are in the results section. TRANSFUSE RED BLOOD Routine 11/08/2017 5:49 CELLS AM CDT TRANSFUSE RED BLOOD Routine 11/08/2017 4:53 CELLS AM CDT POC GLUCOSE Routine 11/08/2017 4:43 Results for this AM CDT procedure are in the results section. TRANSFUSE FRESH FROZEN Routine 11/08/2017 3:32 PLASMA AM CDT FIBRINOGEN Routine 11/08/2017 2:45 Results for this AM CDT procedure are in the results section. COMPREHENSIVE Routine 11/08/2017 2:45 Results for this METABOLIC PANEL AM CDT procedure are in the results section. PARTIAL THROMBOPLASTIN Routine 11/08/2017 2:45 Results for this TIME (PTT) AM CDT procedure are in the results section. LACTIC ACID LEVEL Routine 11/08/2017 2:45 Results for this AM CDT procedure are in the results section. ESTIMATED GFR Routine 11/08/2017 2:45 Results for this AM CDT procedure are in the results section. PROTHROMBIN TIME WITH Routine 11/08/2017 2:45 Results for this INR AM CDT procedure are in the results section. IONIZED CALCIUM Routine 11/08/2017 2:45 Results for this AM CDT procedure are in the results section. HC COMPLETE BLD COUNT Routine 11/08/2017 2:45 Results for this W/AUTO DIFF AM CDT procedure are in the results section. PHOSPHORUS LEVEL Routine 11/08/2017 2:45 Results for this AM CDT procedure are in the results section. MAGNESIUM LEVEL Routine 11/08/2017 2:45 Results for this AM CDT procedure are in the results section. TRANSFUSE FRESH FROZEN Routine 11/08/2017 2:24 PLASMA AM CDT TRANSFUSE FRESH FROZEN Routine 11/08/2017 1:36 PLASMA AM CDT POC GLUCOSE Routine 11/08/2017 12:58 Results for this AM CDT procedure are in the results section. TRANSFUSE FRESH FROZEN Routine 11/08/2017 12:31 PLASMA AM CDT HEMOGLOBIN & Timed 11/07/2017 11:30 Results for this HEMATOCRIT PM CDT procedure are in the results section. TRANSFUSE PLATELETS Routine 11/07/2017 10:07 PM CDT POC GLUCOSE Routine 11/07/2017 9:11 Results for this PM CDT procedure are in the results section. POC GLUCOSE Routine 11/07/2017 5:24 Results for this PM CDT procedure are in the results section. HEMOGLOBIN A1C Routine 11/07/2017 5:10 Results for this PM CDT procedure are in the results section. ESTIMATED GFR Routine 11/07/2017 5:10 Results for this PM CDT procedure are in the results section. LACTIC ACID LEVEL Routine 11/07/2017 5:10 Results for this PM CDT procedure are in the results section. HC COMPLETE BLD COUNT Routine 11/07/2017 5:10 Results for this W/AUTO DIFF PM CDT procedure are in the results section. BASIC METABOLIC PANEL Routine 11/07/2017 5:10 Results for this PM CDT procedure are in the results section. EGD WITH BIOPSY 11/07/2017 2:00 Upper GI bleed PM CDT POC GLUCOSE Routine 11/07/2017 1:34 Results for this PM CDT procedure are in the results section. LACTIC ACID LEVEL Routine 11/07/2017 10:10 Results for this AM CDT procedure are in the results section. ECG 12-LEAD STAT 11/07/2017 9:33 Results for this AM CDT procedure are in the results section. ARTERIAL BLOOD GAS Routine 11/07/2017 8:22 Results for this AM CDT procedure are in the results section. POC GLUCOSE Routine 11/07/2017 7:53 Results for this AM CDT procedure are in the results section. PREPARE FRESH FROZEN Timed 11/07/2017 7:45 PLASMA AM CDT PREPARE PLATELET Timed 11/07/2017 7:45 PHERESIS AM CDT PREPARE RBC Timed 11/07/2017 7:45 Results for this AM CDT procedure are in the results section. TYPE AND SCREEN Routine 11/07/2017 7:45 Results for this AM CDT procedure are in the results section. PROTHROMBIN TIME WITH Routine 11/07/2017 6:20 Results for this INR AM CDT procedure are in the results section. PARTIAL THROMBOPLASTIN Routine 11/07/2017 6:20 Results for this TIME (PTT) AM CDT procedure are in the results section. ESTIMATED GFR Routine 11/07/2017 6:20 Results for this AM CDT procedure are in the results section. MAGNESIUM LEVEL Routine 11/07/2017 6:20 Results for this AM CDT procedure are in the results section. COMPREHENSIVE Routine 11/07/2017 6:20 Results for this METABOLIC PANEL AM CDT procedure are in the results section. HC COMPLETE BLD COUNT Routine 11/07/2017 6:20 Results for this W/AUTO DIFF AM CDT procedure are in the results section. POC GLUCOSE Routine 11/06/2017 9:13 Results for this PM CDT procedure are in the results section. POC GLUCOSE Routine 11/06/2017 4:39 Results for this PM CDT procedure are in the results section. OCCULT BLOOD, STOOL Routine 11/06/2017 4:00 Results for this PM CDT procedure are in the results section. US GUIDED VASCULAR Routine 11/06/2017 2:06 Results for this ACCESS PM CDT procedure are in the results section. IR PICC PLACEMENT Routine 11/06/2017 2:06 Results for this PM CDT procedure are in the results section. POC GLUCOSE Routine 11/06/2017 12:01 Results for this PM CDT procedure are in the results section. POC GLUCOSE Routine 11/06/2017 7:49 Results for this AM CDT procedure are in the results section. HC COMPLETE BLD COUNT Routine 11/06/2017 7:35 Results for this W/AUTO DIFF AM CDT procedure are in the results section. COMPREHENSIVE Routine 11/06/2017 6:25 Results for this METABOLIC PANEL AM CDT procedure are in the results section. ESTIMATED GFR Routine 11/06/2017 6:25 Results for this AM CDT procedure are in the results section. MAGNESIUM LEVEL Routine 11/06/2017 6:25 Results for this AM CDT procedure are in the results section. PARTIAL THROMBOPLASTIN Routine 11/06/2017 6:25 Results for this TIME (PTT) AM CDT procedure are in the results section. PROTHROMBIN TIME WITH Routine 11/06/2017 6:25 Results for this INR AM CDT procedure are in the results section. POC GLUCOSE Routine 11/05/2017 9:50 Results for this PM CDT procedure are in the results section. POC GLUCOSE Routine 11/05/2017 4:23 Results for this PM CDT procedure are in the results section. POC GLUCOSE Routine 11/05/2017 11:42 Results for this AM CDT procedure are in the results section. US DUPLEX ARTERIAL Routine 11/05/2017 10:49 Results for this LOWER EXTREMITY AM CDT procedure are in BILATERAL the results section. POC GLUCOSE Routine 11/05/2017 7:20 Results for this AM CDT procedure are in the results section. XR CHEST 1 VW PORTABLE Routine 11/05/2017 5:40 Results for this AM CDT procedure are in the results section. ESTIMATED GFR Routine 11/05/2017 4:35 Results for this AM CDT procedure are in the results section. MAGNESIUM LEVEL Routine 11/05/2017 4:35 Results for this AM CDT procedure are in the results section. COMPREHENSIVE Routine 11/05/2017 4:35 Results for this METABOLIC PANEL AM CDT procedure are in the results section. HC COMPLETE BLD COUNT Routine 11/05/2017 4:35 Results for this W/AUTO DIFF AM CDT procedure are in the results section. FERRITIN LEVEL Routine 11/05/2017 4:35 Results for this AM CDT procedure are in the results section. FOLATE LEVEL Routine 11/05/2017 4:35 Results for this AM CDT procedure are in the results section. TOTAL IRON BINDING Routine 11/05/2017 4:35 Results for this CAPACITY AM CDT procedure are in the results section. POC GLUCOSE Routine 11/04/2017 9:51 Results for this PM CDT procedure are in the results section. TRANSFUSE RED BLOOD Routine 11/04/2017 9:44 CELLS PM CDT POC GLUCOSE Routine 11/04/2017 4:25 Results for this PM CDT procedure are in the results section. POC GLUCOSE Routine 11/04/2017 11:39 Results for this AM CDT procedure are in the results section. PREPARE PLATELET Timed 11/04/2017 9:10 Results for this PHERESIS AM CDT procedure are in the results section. PREPARE FRESH FROZEN Timed 11/04/2017 9:10 Results for this PLASMA AM CDT procedure are in the results section. PREPARE FRESH FROZEN Timed 11/04/2017 9:10 PLASMA AM CDT PREPARE RBC Timed 11/04/2017 9:10 Results for this AM CDT procedure are in the results section. PREPARE RBC Timed 11/04/2017 9:10 Results for this AM CDT procedure are in the results section. TYPE AND SCREEN Timed 11/04/2017 9:10 Results for this AM CDT procedure are in the results section. HEMOGLOBIN & STAT 11/04/2017 9:10 Results for this HEMATOCRIT AM CDT procedure are in the results section. POC GLUCOSE Routine 11/04/2017 8:34 Results for this AM CDT procedure are in the results section. ESTIMATED GFR Routine 11/04/2017 4:40 Results for this AM CDT procedure are in the results section. MAGNESIUM LEVEL Routine 11/04/2017 4:40 Results for this AM CDT procedure are in the results section. COMPREHENSIVE Routine 11/04/2017 4:40 Results for this METABOLIC PANEL AM CDT procedure are in the results section. HC COMPLETE BLD COUNT Routine 11/04/2017 4:40 Results for this W/AUTO DIFF AM CDT procedure are in the results section. ESTIMATED GFR Routine 11/04/2017 4:40 Results for this AM CDT procedure are in the results section. DIGOXIN LEVEL Routine 11/04/2017 4:40 Results for this AM CDT procedure are in the results section. THYROID STIMULATING Routine 11/04/2017 4:40 Results for this HORMONE AM CDT procedure are in the results section. BASIC METABOLIC PANEL Routine 11/04/2017 4:40 Results for this AM CDT procedure are in the results section. POC GLUCOSE Routine 11/03/2017 8:47 Results for this PM CDT procedure are in the results section. POC GLUCOSE Routine 11/03/2017 5:05 Results for this PM CDT procedure are in the results section. URINALYSIS SCREEN AND Routine 11/03/2017 2:45 Results for this MICROSCOPY, WITH PM CDT procedure are in REFLEX TO CULTURE the results section. URINE CULTURE Routine 11/03/2017 2:45 Results for this PM CDT procedure are in the results section. GRAM STAIN Routine 11/03/2017 2:45 Results for this PM CDT procedure are in the results section. XR CHEST 1 VW PORTABLE Routine 11/03/2017 7:04 Results for this AM CDT procedure are in the results section. CONSULT TO OSTOMY CARE Routine 11/03/2017 4:20 NURSE AM CDT BLOOD CULTURE, AEROBIC Routine 11/03/2017 1:12 Results for this & ANAEROBIC AM CDT procedure are in the results section. ESTIMATED GFR Routine 11/03/2017 12:55 Results for this AM CDT procedure are in the results section. MAGNESIUM LEVEL Routine 11/03/2017 12:55 Results for this AM CDT procedure are in the results section. COMPREHENSIVE Routine 11/03/2017 12:55 Results for this METABOLIC PANEL AM CDT procedure are in the results section. HC COMPLETE BLD COUNT Routine 11/03/2017 12:55 Results for this W/AUTO DIFF AM CDT procedure are in the results section. BLOOD CULTURE, AEROBIC Routine 11/03/2017 12:55 Results for this & ANAEROBIC AM CDT procedure are in the results section. after 02/11/2017 Results POC glucose (11/13/2017 11:32 AM)Only the most recent of53 resultswithin the time period is included. POC glucose 164 (H) 65 - 99 mg/dL [facility] DEPARTMENT OF PATHOLOGY AND Comment: GENOMIC MEDICINE RN Notified Meter ID: [id number] [employer] Servicer: Gennaro Tyler Performing Organization Address City/State/Zipcode Phone Number [facility] DEPARTMENT OF PATHOLOGY [address] [facility] [place] [address] AND GENOMIC MEDICINE Estimated GFR (11/13/2017 4:45 AM)Only the most recent of13 resultswithin the time period is included. GFR Non Af Amer 19 (A) mL/min/1.73 m2 [facility] DEPARTMENT OF PATHOLOGY AND GENOMIC MEDICINE GFR Af Amer 24 (A) mL/min/1.73 m2 [facility] DEPARTMENT OF Comment: PATHOLOGY AND GENOMIC Chronic kidney disease: <60 mL/min/1.73m2 MEDICINE Kidney failure: <15 mL/min/1.73m2 The estimated GFR is calculated from the IDMS-traceable Modification of Diet in Renal Disease Equation. The accuracy of the calculation is poor when the creatinine is normal. Calculated values >90 mL/min/1.73m2 are not reported. This equation has not been validated in children (<18 years), women, the elderly (>70 years), or ethnic groups other than Caucasians and Americans. Specimen Plasma specimen Performing Organization Address City/State/Zipcode Phone Number [facility] DEPARTMENT OF PATHOLOGY [address] [place] [address] AND [facility] CBC with platelet and differential (11/13/2017 4:45 AM)Only the most recent of12 resultswithin the time period is included. WBC 9.3 4.5 - 11.0 k/uL [facility] DEPARTMENT OF PATHOLOGY AND GENOMIC MEDICINE RBC 3.05 (L) 4.20 - 5.50 m/uL [facility] DEPARTMENT OF PATHOLOGY AND GENOMIC MEDICINE HGB 8.8 (L) 12.0 - 16.0 g/dL [facility] DEPARTMENT OF PATHOLOGY AND GENOMIC MEDICINE HCT 25.4 (L) 37.0 - 47.0 % [facility] DEPARTMENT OF PATHOLOGY AND GENOMIC MEDICINE MCV 83.3 82.0 - 100.0 fL [facility] DEPARTMENT OF PATHOLOGY AND GENOMIC MEDICINE MCH 28.9 27.0 - 34.0 pg [facility] DEPARTMENT OF PATHOLOGY AND GENOMIC MEDICINE MCHC 34.6 31.0 - 37.0 g/dL [facility] DEPARTMENT OF PATHOLOGY AND GENOMIC MEDICINE RDW - SD 49.3 37.0 - 55.0 fL [facility] DEPARTMENT OF PATHOLOGY AND GENOMIC MEDICINE MPV 11.4 (H) 6.9 - 11.0 fL [facility] DEPARTMENT OF PATHOLOGY AND GENOMIC MEDICINE Platelet count 62 (L) 150 - 400 K/uL [facility] DEPARTMENT OF PATHOLOGY AND GENOMIC MEDICINE Nucleated RBC 0.50 /100 WBC [facility] DEPARTMENT OF PATHOLOGY AND GENOMIC MEDICINE Neutrophils 76.3 (H) 39.0 - 69.0 % [facility] DEPARTMENT OF PATHOLOGY AND GENOMIC MEDICINE Lymphocytes 13.7 (L) 25.0 - 45.0 % [facility] DEPARTMENT OF PATHOLOGY AND GENOMIC MEDICINE Monocytes 7.3 0.0 - 10.0 % [facility] DEPARTMENT OF PATHOLOGY AND GENOMIC MEDICINE Eosinophils 1.5 0.0 - 5.0 % [facility] DEPARTMENT OF PATHOLOGY AND GENOMIC MEDICINE Basophils 0.1 0.0 - 1.0 % [facility] DEPARTMENT OF PATHOLOGY AND GENOMIC MEDICINE Immature granulocytes 1.1 (H) 0.0 - 1.0 % [facility] DEPARTMENT OF PATHOLOGY AND GENOMIC MEDICINE Specimen Blood Performing Organization Address City/State/Zipcode Phone Number [facility] DEPARTMENT OF PATHOLOGY [address] [place] [address] AND [facility] Comprehensive metabolic panel (11/13/2017 4:45 AM)Only the most recent of8 resultswithin the time period is included. Sodium 135 135 - 148 mEq/L [facility] DEPARTMENT OF PATHOLOGY AND GENOMIC MEDICINE Potassium 3.9 3.5 - 5.0 mEq/L [facility] DEPARTMENT OF PATHOLOGY AND GENOMIC MEDICINE Chloride 105 98 - 112 mEq/L [facility] DEPARTMENT OF PATHOLOGY AND GENOMIC MEDICINE CO2 17 (L) 24 - 31 mEq/L [facility] DEPARTMENT OF PATHOLOGY AND GENOMIC MEDICINE Anion gap 13 7 - 15 mEq/L [facility] DEPARTMENT OF Comment: PATHOLOGY AND GENOMIC Starting from November , anion gap calculation MEDICINE no longer incorporates potassium. Please note the change. BUN 51 (H) 8 - 23 mg/dL [facility] DEPARTMENT OF PATHOLOGY AND GENOMIC MEDICINE Creatinine 2.4 (H) 0.5 - 0.9 mg/dL [facility] DEPARTMENT OF PATHOLOGY AND GENOMIC MEDICINE Glucose 152 (H) 65 - 99 mg/dL [facility] DEPARTMENT OF PATHOLOGY AND GENOMIC MEDICINE Calcium 8.6 (L) 8.8 - 10.2 mg/dL [facility] DEPARTMENT OF PATHOLOGY AND GENOMIC MEDICINE Protein 5.1 (L) 6.3 - 8.3 g/dL [facility] DEPARTMENT OF PATHOLOGY AND GENOMIC MEDICINE Albumin 2.1 (L) 3.5 - 5.0 g/dL [facility] DEPARTMENT OF PATHOLOGY AND GENOMIC MEDICINE A/G ratio 0.7 0.7 - 3.8 [facility] DEPARTMENT OF PATHOLOGY AND GENOMIC MEDICINE Alkaline phosphatase 83 35 - 104 U/L [facility] DEPARTMENT OF PATHOLOGY AND GENOMIC MEDICINE AST 9 (L) 10 - 35 U/L [facility] DEPARTMENT OF PATHOLOGY AND GENOMIC MEDICINE ALT 6 5 - 50 U/L [facility] DEPARTMENT OF PATHOLOGY AND GENOMIC MEDICINE Total bilirubin 0.3 0.2 - 1.2 mg/dL [facility] DEPARTMENT OF PATHOLOGY AND GENOMIC MEDICINE Specimen Plasma specimen Performing Organization Address City/[facility]/Zipcode Phone Number [facility] DEPARTMENT OF PATHOLOGY [address] [place] [address] AND [facility] Prothrombin time with INR (11/12/2017 6:20 AM)Only the most recent of5 resultswithin the time period is included. Prothrombin time 19.0 (H) 12.0 - 15.0 sec [facility] DEPARTMENT OF PATHOLOGY AND GENOMIC MEDICINE INR 1.6 [facility] DEPARTMENT OF Comment: PATHOLOGY AND GENOMIC The International Normalized Ratio (INR) is a therapeutic MEDICINE monitoring tool for patients who are stable on oral anticoagulant therapy. An INR of 2.0-3.0 is suggested for deep vein thrombosis/pulmonary embolism. Specimen Blood Performing Organization Address [facility] Phone Number [facility] DEPARTMENT OF PATHOLOGY [address] [place] [address] AND [facility] Phosphorus level (11/11/2017 4:10 AM)Only the most recent of3 resultswithin the time period is included. Phosphorus 3.0 2.4 - 4.5 mg/dL [facility] DEPARTMENT OF PATHOLOGY AND GENOMIC MEDICINE Specimen Plasma specimen Performing Organization Address City/[facility] Phone Number [facility] DEPARTMENT OF PATHOLOGY [address] [place] [address] AND [facility] Magnesium level (11/11/2017 4:10 AM)Only the most recent of9 resultswithin the time period is included. Magnesium 1.9 1.6 - 2.4 mg/dL [facility] DEPARTMENT OF PATHOLOGY AND GENOMIC MEDICINE Specimen Plasma specimen Performing Organization Address City/[facility]/Zipcode Phone Number [facility] DEPARTMENT OF PATHOLOGY [address] [place] [address] AND [facility] Basic metabolic panel (11/11/2017 4:10 AM)Only the most recent of5 resultswithin the time period is included. Sodium 140 135 - 148 mEq/L [facility] DEPARTMENT OF PATHOLOGY AND GENOMIC MEDICINE Potassium 4.4 3.5 - 5.0 mEq/L [facility] DEPARTMENT OF PATHOLOGY AND GENOMIC MEDICINE Chloride 110 98 - 112 mEq/L [facility] DEPARTMENT OF PATHOLOGY AND GENOMIC MEDICINE CO2 16 (L) 24 - 31 mEq/L [facility] DEPARTMENT OF PATHOLOGY AND [facility] MEDICINE Anion gap 14 7 - 15 mEq/L [facility] DEPARTMENT OF Comment: PATHOLOGY AND GENOMIC Starting from November , anion gap calculation MEDICINE no longer incorporates potassium. Please note the change. BUN 53 (H) 8 - 23 mg/dL [facility] DEPARTMENT OF PATHOLOGY AND GENOMIC MEDICINE Creatinine 2.3 (H) 0.5 - 0.9 mg/dL [facility] DEPARTMENT OF PATHOLOGY AND GENOMIC MEDICINE Glucose 227 (H) 65 - 99 mg/dL [facility] DEPARTMENT OF PATHOLOGY AND GENOMIC MEDICINE Calcium 8.4 (L) 8.8 - 10.2 mg/dL [facility] DEPARTMENT OF PATHOLOGY AND [facility] Specimen Plasma specimen Performing Organization Address City/[facility] Phone Number [facility] DEPARTMENT PATHOLOGY [address] [place] [address] AND [facility] Hemoglobin & hematocrit (11/08/2017 10:05 AM)Only the most recent of4 resultswithin the time period is included. HGB 9.8 (L) 12.0 - 16.0 g/dL [facility] DEPARTMENT OF PATHOLOGY AND [facility] HCT 27.8 (L) 37.0 - 47.0 % [facility] DEPARTMENT OF PATHOLOGY AND [facility] Specimen Blood Performing Organization Address [facility] [place] [place] Phone Number [facility] [address] [place] [address] AND [facility] Transfuse RBC (11/08/2017 5:49 AM)Only the most recent of5 resultswithin the time period is included.Transfuse fresh frozen plasma (11/08/2017 3:32 AM)Only the most recent of5 resultswithin the time period is included.Partial thromboplastin time, activated (11/08/2017 2:45 AM)Only the most recent of3 resultswithin the time period is included. PTT 37.7 (H) 23.0 - 36.0 sec [facility] DEPARTMENT OF Comment: PATHOLOGY AND [facility] PTT therapeutic range for unfractionated heparin is MEDICINE 61.0-112.0 seconds which corresponds to Anti-Xa 0.3-0.7 U/ml. Specimen Blood Performing Organization Address [facility] Phone Number [facility] DEPARTMENT OF PATHOLOGY [address] [place] [address]. [place] [address] AND [facility] MEDICINE Fibrinogen (11/08/2017 2:45 AM) Fibrinogen 210 200 - 450 mg/dL [facility] DEPARTMENT OF PATHOLOGY AND GENOMIC MEDICINE Specimen Blood Performing Organization Address City/[facility] Phone Number [facility] DEPARTMENT OF PATHOLOGY [address] [place] [address]. [place] [address] AND [facility] MEDICINE Lactic acid level (11/08/2017 2:45 AM)Only the most recent of3 resultswithin the time period is included. Lactic acid 1.6 0.5 - 2.2 mmol/L [facility] DEPARTMENT OF PATHOLOGY AND [facility] MEDICINE Specimen Plasma specimen Performing Organization Address [facility] Phone Number [facility] DEPARTMENT OF PATHOLOGY [address] [place] [address]. [place] [address] AND [facility] MEDICINE Ionized calcium (11/08/2017 2:45 AM) pH 7.42 [facility] DEPARTMENT OF PATHOLOGY AND GENOMIC MEDICINE Ionized calcium 1.18 1.11 - 1.32 mmol/L [facility] DEPARTMENT OF PATHOLOGY AND [facility] MEDICINE Specimen Plasma specimen Performing Organization Address [facility] Phone Number [facility] DEPARTMENT OF PATHOLOGY [address] [place] [address]. [place] [address] AND [facility] Transfuse platelets (11/07/2017 10:07 PM)Only the most recent of2 resultswithin the time period is included.Hemoglobin A1c (11/07/2017 5:10 PM) Hemoglobin A1C 5.9 4.0 - 6.0 % [facility] DEPARTMENT OF PATHOLOGY Comment: AND GENOMIC MEDICINE Less than 6% - Goal of therapy for Type II Diabetes Less than 7%-Goal of therapy for Type I Diabetes Less than 8%-Acceptable control for Type I or Type II Diabetes Greater than 8%-Unacceptable control; action indicated. ([id number]) Specimen Blood Performing Organization Address City/[facility] Phone Number [facility] DEPARTMENT OF PATHOLOGY [address] [place] [address]. [place] [id number] AND [facility] MEDICINE ECG 12 lead (11/07/2017 9:33 AM) Ventricular rate 85 [facility] Atrial rate 85 [facility] AK interval 112 [facility] QRSD interval 72 [facility] QT interval 358 [facility] QTC interval 426 [facility] P axis 1 0 [facility] QRS axis 1 127 [facility] T wave axis -39 [facility] EKG impression Electronic ventricular pacemaker-No previous [facility] MUSE ECGs available- Performing Organization Address City/State/Zipcode Phone Number [facility] MUSE [address] [place] [address] Arterial blood gas (11/07/2017 8:22 AM) pH, arterial 7.38 7.35 - 7.45 [facility] DEPARTMENT OF PATHOLOGY AND GENOMIC MEDICINE pCO2, arterial 16 (LL)Comment: 35 - 45 mmHg [facility] DEPARTMENT OF Result called with PATHOLOGY AND GENOMIC read back to Margy Machado RN/5E 08:39 11/07/2017 slel pO2, arterial 132 (H) 80 - 90 mmHg [facility] DEPARTMENT OF PATHOLOGY AND GENOMIC MEDICINE Bicarbonate, arterial 8.9 (L) 21.0 - 28.0 mmol/L [facility] DEPARTMENT OF PATHOLOGY AND GENOMIC MEDICINE Base excess, arterial -16 (L) -2 - 2 mEq/L [facility] DEPARTMENT OF PATHOLOGY AND GENOMIC MEDICINE O2 saturation, arterial 98 95 - 100 % [facility] DEPARTMENT OF PATHOLOGY AND GENOMIC MEDICINE Specimen Blood Performing Organization Address City/[facility]/Zipcode Phone Number [facility] DEPARTMENT OF PATHOLOGY [address] [place] [address] AND [facility] MEDICINE Prepare RBC, 4 Units (11/07/2017 7:45 AM)Only the most recent of3 resultswithin the time period is included. Product name Red Blood Cells -1, [facility] DEPARTMENT OF Leukored PATHOLOGY AND GENOMIC MEDICINE Unit number [id number] [facility] DEPARTMENT OF PATHOLOGY AND GENOMIC MEDICINE Product code [id number] [facility] DEPARTMENT OF PATHOLOGY AND GENOMIC MEDICINE Dispense status Transfused [facility] DEPARTMENT OF PATHOLOGY AND GENOMIC MEDICINE Blood expiration date [facility] DEPARTMENT OF PATHOLOGY AND GENOMIC MEDICINE Blood type code 8400 [facility] DEPARTMENT OF PATHOLOGY AND GENOMIC MEDICINE Blood type AB POSITIVE [facility] DEPARTMENT OF PATHOLOGY AND GENOMIC MEDICINE Product name Red Blood Cells -1, [facility] DEPARTMENT OF Leukored PATHOLOGY AND GENOMIC MEDICINE Unit number [id number] [facility] DEPARTMENT OF PATHOLOGY AND GENOMIC MEDICINE Product code [id number] [facility] DEPARTMENT OF PATHOLOGY AND GENOMIC MEDICINE Dispense status Transfused [facility] DEPARTMENT OF PATHOLOGY AND GENOMIC MEDICINE Blood expiration date [id number] [facility] DEPARTMENT OF PATHOLOGY AND GENOMIC MEDICINE Blood type code 8400 [facility] DEPARTMENT OF PATHOLOGY AND GENOMIC MEDICINE Blood type AB POSITIVE [facility] DEPARTMENT OF PATHOLOGY AND GENOMIC MEDICINE Performing Organization Address City/State/Zipcode Phone Number [facility] DEPARTMENT OF PATHOLOGY [address] [place] [address]. [place] [address] AND [facility] MEDICINE Type and screen (11/07/2017 7:45 AM)Only the most recent of2 resultswithin the time period is included. ABO grouping AB [facility] DEPARTMENT OF PATHOLOGY AND GENOMIC MEDICINE Rh type POS [facility] DEPARTMENT OF PATHOLOGY AND GENOMIC MEDICINE Antibody screen (gel) NEG [facility] DEPARTMENT OF PATHOLOGY AND GENOMIC MEDICINE Performing Organization Address City/[facility]/Zipcode Phone Number [facility] DEPARTMENT OF PATHOLOGY [address] [place] [address]. [place] [address] AND [facility] Occult blood, stool (11/06/2017 4:00 PM) Occult blood, stool Positive for Occult blood (A) [facility] DEPARTMENT OF Comment: PATHOLOGY AND GENOMIC Specimen Information MEDICINE Specimen Source: Stool Specimen Site: Nonpreserved Specimen Stool - Nonpreserved Performing Organization Address City/State/Zipcode Phone Number [facility] DEPARTMENT OF PATHOLOGY [address] [place] [address]. [place] [address] AND [facility] IR PICC Placement (11/06/2017 2:06 PM) Narrative Performed At Procedure: PICC insertion. [facility] Clinical indication: Need for long-term intravenous medication. [...] fluoroscopy. The needle was removed and a 5.5-[place] peel-away sheath was then placed. Under ultrasound guidance, documentation of vessel patency, needle access with permanent recording, and reporting are performed followed by placement of a sheath in the right basilic vein. A 38 cm long 5-[place] dual-lumen Power PICC was then deployed over [...] fluoroscopy. The needle was removed and a 5.5-[place] peel-away sheath was then placed. Under ultrasound guidance, documentation of vessel patency, needle access with permanent recording, and reporting are performed followed by placement of a sheath in the right basilic vein. A 38 cm long 5-[place] dual-lumen Power PICC was then deployed over [...] No immediate. Impression: Technically successful PICC insertion. Performing Organization Address City/State/Zipcode Phone Number [facility] [address] [place] [address] [place] Guided Vascular Access (11/06/2017 2:06 PM) Narrative Performed At Procedure: PICC insertion. ISABELLA Clinical indication: Need for long-term intravenous medication. [...] fluoroscopy. The needle was removed and a 5.5-[place] peel-away sheath was then placed. Under ultrasound guidance, documentation of vessel patency, needle access with permanent recording, and reporting are performed followed by placement of a sheath in the right basilic vein. A 38 cm long 5-[place] dual-lumen Power PICC was then deployed over [...] Impression: Technically successful PICC insertion. Procedure Note Hm Interface, Radiology Results Incoming - 11/06/2017 2:19 [...] fluoroscopy. The needle was removed and a 5.5-[place] peel-away sheath was then placed. Under ultrasound guidance, documentation of vessel patency, needle access with permanent recording, and reporting are performed followed by placement of a sheath in the right basilic vein. A 38 cm long 5-[place] dual-lumen Power PICC was then deployed over [...] No immediate. Impression: Technically successful PICC insertion. Performing Organization Address City/State/Zipcode Phone Number [facility] [address] [place] [address] duplex arterial lower extremity (11/05/2017 10:49 AM) Narrative Performed At EXAM: US DUPLEX ARTERIAL LOWER EXTREMITY BILATERAL [facility] HISTORY: peripheral arterial occlusive disease TECHNIQUE: Real-time [...] COMMON FEMORAL:86 cm/s. FEMORAL: Proximal: -71.72 cm/s Mid: -90.40 cm/s Distal:- 56.05 cm/s POPLITEAL: Proximal:83.09 cm/s Mid: -86.01 cm/s Distal: -112.89 cm/s POSTERIOR TIBIAL: Proximal: 72.32 cm/s Mid: 40.04 cm/s Distal:- 18.58 cm/s ANTERIOR TIBIAL: Proximal: 37.21 cm/s Mid: -38.30 cm/s Distal:3 6.55 cm/s DORSALIS PEDIS: -23.10 cm/s DOPPLER WAVEFORMS: [...] COMMON FEMORAL:66.21 cm/s FEMORAL: Proximal: -49.64 cm/s Mid: -64.47 cm/s Distal:- 51.38 cm/s POPLITEAL: Proximal: 66.21 cm/s Mid: -62.72 cm/s Distal: -54.87 cm/s POSTERIOR TIBIAL: Proximal: 80.13 cm/s Mid: 39.95 cm/s Distal:2 5.70 cm/s ANTERIOR TIBIAL: Proximal:49.64 cm/s Mid: -19.18 cm/s Distal: 133.84 cm/s DORSALIS PEDIS:-16.69 cm/s DOPPLER WAVEFORMS: COMMON FEMORAL: Triphasic FEMORAL Proximal: Biphasic Mid: Biphasic Distal: Biphasic POPLITEAL Proximal: Biphasic Mid: Biphasic Distal: Biphasic POSTERIOR TIBIAL Proximal: Biphasic Mid: Monophasic Distal: Monophasic ANTERIOR TIBIAL Proximal: Biphasic Mid: Monophasic Distal: Monophasic DORSALIS PEDIS: Monophasic ANKLE BRACHIAL INDEX: Posterior tibial: Noncompressible. Dorsalis pedis: Noncompressible. [facility]-[id number] NELSON Guidelines: >1.4: Calcified Vessel 0.9-1.4: Normal [...] INDEX: Posterior tibial: Noncompressible. Dorsalis pedis: Noncompressible. [facility]-[id number] NELSON Guidelines: >1.4: Calcified Vessel 0.9-1.4: Normal 0.7-0.89: Mild PAD 0.51-0.69: Moderate PAD <0.5: Severe PAD Performing Organization Address City/[facility]/Zipcode Phone Number [facility] [address] [place] [address] XR Chest 1 Vw Portable (11/05/2017 5:40 AM)Only the most recent of2 resultswithin the time period is included. Narrative Performed At EXAMINATION:XR CHEST 1 VW PORTABLE [facility] CLINICAL HISTORY:Pneumonia COMPARISON:Most Recent IMPRESSION: Heart and mediastinum are stable. Left-sided AICD again noted. Perihilar interstitial and patchy opacities without new infiltrates. Bones are osteopenic. [facility]-[id number] Procedure Note Hm Interface, Radiology Results Incoming - 11/05/2017 7:31 AM CDT EXAMINATION: XR CHEST 1 VW PORTABLE CLINICAL HISTORY: Pneumonia COMPARISON: Most Recent IMPRESSION: Heart and mediastinum are stable. Left-sided AICD again noted. Perihilar interstitial and patchy opacities without new infiltrates. Bones are osteopenic. [facility]-[id number] Performing Organization Address [facility] Phone Number [facility] [address] [place] [address] Total iron binding capacity (11/05/2017 4:35 AM) Iron level 106 37 - 145 ug/dL [facility] DEPARTMENT OF PATHOLOGY AND GENOMIC MEDICINE Iron binding capacity 137 (L) 260 - 460 ug/dL [facility] DEPARTMENT OF PATHOLOGY AND GENOMIC MEDICINE % Saturation 77.4 (H) 15.0 - 38.0 % [facility] DEPARTMENT OF PATHOLOGY AND GENOMIC MEDICINE Specimen Plasma specimen Performing Organization Address City/[facility]/Zipcode Phone Number [facility] DEPARTMENT OF PATHOLOGY [address] [place] [address] AND GENOMIC [facility] Folate level (11/05/2017 4:35 AM) Folate 2.9 (L) 4.8 - 24.2 ng/mL [facility] DEPARTMENT OF PATHOLOGY AND GENOMIC MEDICINE Specimen Serum Performing Organization Address City/[facility]/Zipcode Phone Number [facility] DEPARTMENT OF PATHOLOGY AND [address] [place] [address] GENOMIC MEDICINE Ferritin level (11/05/2017 4:35 AM) Ferritin level 439 (H) 13 - 150 ng/mL [facility] DEPARTMENT OF PATHOLOGY AND GENOMIC MEDICINE Specimen Plasma specimen Performing Organization Address City/State/Zipcode Phone Number [facility] DEPARTMENT OF PATHOLOGY AND [address] [place] [address] GENOMIC MEDICINE Prepare platelet pheresis, 1 Units (11/04/2017 9:10 AM) Product name Apheresis PLT, Leukored IRR [facility] DEPARTMENT OF #2 PATHOLOGY AND GENOMIC MEDICINE Unit number [id number] [facility] DEPARTMENT OF PATHOLOGY AND GENOMIC MEDICINE Product code [id number] [facility] DEPARTMENT OF PATHOLOGY AND GENOMIC MEDICINE Dispense status Transfused [facility] DEPARTMENT OF PATHOLOGY AND GENOMIC MEDICINE Blood expiration date [facility] DEPARTMENT OF PATHOLOGY AND GENOMIC MEDICINE Blood type code 6200 [facility] DEPARTMENT OF PATHOLOGY AND GENOMIC MEDICINE Blood type A POSITIVE [facility] DEPARTMENT OF PATHOLOGY AND GENOMIC MEDICINE Performing Organization Address City/State/Zipcode Phone Number [facility] DEPARTMENT OF PATHOLOGY [id number] [place] [address] AND [facility] MEDICINE Prepare fresh frozen plasma, 4 Units (11/04/2017 9:10 AM) Product name Thawed Plasma [facility] DEPARTMENT OF PATHOLOGY AND GENOMIC MEDICINE Unit number [id number] [facility] DEPARTMENT OF PATHOLOGY AND GENOMIC MEDICINE Product code [id number] [facility] DEPARTMENT OF PATHOLOGY AND GENOMIC MEDICINE Dispense status Transfused [facility] DEPARTMENT OF PATHOLOGY AND GENOMIC MEDICINE Blood expiration date [facility] DEPARTMENT OF PATHOLOGY AND GENOMIC MEDICINE Blood type code 8400 [facility] DEPARTMENT OF PATHOLOGY AND GENOMIC MEDICINE Blood type AB POSITIVE [facility] DEPARTMENT OF PATHOLOGY AND GENOMIC MEDICINE Product name Thawed Plasma [facility] DEPARTMENT OF PATHOLOGY AND GENOMIC MEDICINE Unit number [id number] [facility] DEPARTMENT OF PATHOLOGY AND GENOMIC MEDICINE Product code [id number] [facility] DEPARTMENT OF PATHOLOGY AND GENOMIC MEDICINE Dispense status Transfused [facility] DEPARTMENT OF PATHOLOGY AND GENOMIC MEDICINE Blood expiration date [facility] DEPARTMENT OF PATHOLOGY AND GENOMIC MEDICINE Blood type code 8400 [facility] DEPARTMENT OF PATHOLOGY AND GENOMIC MEDICINE Blood type AB POSITIVE [facility] DEPARTMENT OF PATHOLOGY AND GENOMIC MEDICINE Product name Thawed Plasma [facility] DEPARTMENT OF PATHOLOGY AND GENOMIC MEDICINE Unit number [id number] [facility] DEPARTMENT OF PATHOLOGY AND GENOMIC MEDICINE Product code [id number] [facility] DEPARTMENT OF PATHOLOGY AND GENOMIC MEDICINE Dispense status Transfused [facility] DEPARTMENT OF PATHOLOGY AND GENOMIC MEDICINE Blood expiration date [facility] DEPARTMENT OF PATHOLOGY AND GENOMIC MEDICINE Blood type code 8400 [facility] DEPARTMENT OF PATHOLOGY AND GENOMIC MEDICINE Blood type AB POSITIVE [facility] DEPARTMENT OF PATHOLOGY AND GENOMIC MEDICINE Product name Thawed Plasma [facility] DEPARTMENT OF PATHOLOGY AND GENOMIC MEDICINE Unit number [id number] [facility] DEPARTMENT OF PATHOLOGY AND GENOMIC MEDICINE Product code [id number] [facility] DEPARTMENT OF PATHOLOGY AND GENOMIC MEDICINE Dispense status Transfused [facility] DEPARTMENT OF PATHOLOGY AND GENOMIC MEDICINE Blood expiration date [facility] DEPARTMENT OF PATHOLOGY AND GENOMIC MEDICINE Blood type code 8400 [facility] DEPARTMENT OF PATHOLOGY AND GENOMIC MEDICINE Blood type AB POSITIVE [facility] DEPARTMENT OF PATHOLOGY AND GENOMIC MEDICINE Specimen Blood Performing Organization Address City/[facility] Phone Number [facility] DEPARTMENT OF PATHOLOGY [address] [place] [address] AND [facility] Thyroid stimulating hormone (11/04/2017 4:40 AM) TSH 2.28 0.27 - 4.20 uIU/mL [facility] DEPARTMENT OF PATHOLOGY AND GENOMIC MEDICINE Specimen Plasma specimen Performing Organization Address [facility] Phone Number [facility] DEPARTMENT OF PATHOLOGY [address] [place] [address] AND [facility] Digoxin level (11/04/2017 4:40 AM) Digoxin 3.2 (HH) 0.8 - 2.0 ng/mL [facility] DEPARTMENT OF PATHOLOGY Comment: AND [facility] For valid Digoxin results, at least 6 hours should elapse between time of last dose and collection of blood. Otherwise, result may be false high. Therapeutic Range: 0.8 - 2.0 ng/mL Final results called to and read back by JOAN MATTHEWS 11/04/2017 05:58 [place] Specimen Plasma specimen Performing Organization Address [facility] Phone Number [facility] DEPARTMENT OF PATHOLOGY [address] [place] [address] AND [facility] Urinalysis screen and microscopy, with reflex to culture (11/03/2017 2:45 PM) Specimen site [place] [facility] DEPARTMENT OF PATHOLOGY AND GENOMIC MEDICINE Color, UA Yellow [facility] DEPARTMENT OF PATHOLOGY AND GENOMIC MEDICINE Appearance, UA Turbid [facility] DEPARTMENT OF PATHOLOGY AND GENOMIC MEDICINE Specific gravity, UA 1.009 1.001 - 1.030 [facility] DEPARTMENT OF PATHOLOGY AND GENOMIC MEDICINE pH, UA 5.0 5.0 - 9.0 [facility] DEPARTMENT OF PATHOLOGY AND GENOMIC MEDICINE Protein, UA 1+ (A) Negative [facility] DEPARTMENT OF PATHOLOGY AND GENOMIC MEDICINE Glucose, UA Negative Negative [facility] DEPARTMENT OF PATHOLOGY AND GENOMIC MEDICINE Ketones, UA Trace (A) Negative [facility] DEPARTMENT OF PATHOLOGY AND GENOMIC MEDICINE Bilirubin, UA Negative Negative [facility] DEPARTMENT OF PATHOLOGY AND GENOMIC MEDICINE Blood, UA Moderate (A) Negative [facility] DEPARTMENT OF PATHOLOGY AND GENOMIC MEDICINE Nitrite, UA Negative Negative [facility] DEPARTMENT OF PATHOLOGY AND GENOMIC MEDICINE Urobilinogen, UA <2.0 <2.0 E.U./dL [facility] DEPARTMENT OF PATHOLOGY AND GENOMIC MEDICINE Leukocyte esterase, UA Large (A) Negative [facility] DEPARTMENT OF PATHOLOGY AND GENOMIC MEDICINE Epithelial cells, UA 7 /HPF [facility] DEPARTMENT OF PATHOLOGY AND GENOMIC MEDICINE WBC, UA >200 (H) 0 - 4 /HPF [facility] DEPARTMENT OF PATHOLOGY AND GENOMIC MEDICINE RBC, UA 84 (H) 0 - 2 /HPF [facility] DEPARTMENT OF PATHOLOGY AND GENOMIC MEDICINE Bacteria, UA Few None seen [facility] DEPARTMENT OF PATHOLOGY AND GENOMIC MEDICINE WBC clumps, UA Many (A) [facility] DEPARTMENT OF PATHOLOGY AND GENOMIC MEDICINE Yeast, UA Few (A) [facility] DEPARTMENT OF PATHOLOGY AND GENOMIC MEDICINE Yeast with pseudohyphae, UA None seen [facility] DEPARTMENT OF PATHOLOGY AND GENOMIC MEDICINE Hyaline casts, UA >20 (A) /LPF [facility] DEPARTMENT OF PATHOLOGY AND GENOMIC MEDICINE Specimen Urine Performing Organization Address City/State/Zipcode Phone Number [facility] DEPARTMENT OF PATHOLOGY [address] [place] [address] AND [facility] Gram stain (11/03/2017 2:45 PM) Gram stain result Many WBC's [facility] [facility] DEPARTMENT OF PATHOLOGY AND [place] [facility] Comment: Specimen Information Specimen Source: Urine Specimen Site: [place] Specimen Urine - [place] Performing Organization Address City/State/Zipcode Phone Number [facility] DEPARTMENT OF PATHOLOGY AND [address] [place] [address] [facility] Urine culture (11/03/2017 2:45 PM) Urine culture isolate Rosy glabrata [facility] DEPARTMENT OF >10-5 cfu/ml PATHOLOGY AND GENOMIC The performance characteristics of this assay on this isolate MEDICINE were validated by the Microbiology Laboratory at [facility].This source has not been approved by the U.S. Food and Drug Administration.The results are not intended to be used as the sole means for clinical diagnosis or patient management.The Microbiology Laboratory is authorized under the clinical Laboratory Improvement Amendments of 1988 (CLIA-88) to perform high complexity testing. (A) Comment: Specimen Information Specimen Source: Urine Specimen Site: [place] Specimen Urine - [place] Organism Antibiotic Method Susceptibility Rosy glabrata Micafungin BP 0.016 mcg/mL: Susceptible Rosy glabrata Amphotericin B BP 2 mcg/mL Rosy glabrata Posiconazole BP >8 mcg/mL Rosy glabrata Itraconazole BP >16 mcg/mL Rosy glabrata Fluconazole BP >256 mcg/mL: Resistant Performing Organization Address [facility] [place] [place] Phone Number [facility] DEPARTMENT OF PATHOLOGY AND [address] [place] [id number] GENOMIC MEDICINE Blood culture, aerobic & anaerobic (11/03/2017 1:12 AM)Only the most recent of2 resultswithin the time period is included. Blood culture isolate No growth after 5 days of incubation. [facility] DEPARTMENT OF Comment: PATHOLOGY AND GENOMIC Specimen Information MEDICINE Specimen Source: Blood Specimen Site: Hand Left Specimen Blood - Antecubital, right Performing Organization Address [facility] [place] [place] Phone Number [facility] DEPARTMENT OF PATHOLOGY AND [address] [place] [id number] GENOMIC MEDICINE after 02/11/2017 Insurance Payer Benefit Plan / Group Subscriber ID Type Phone Address MEDICAID MEDICAID xxxxxxxxx Medicaid MEDICARE MEDICARE PART A AND B xxxxxxxxxx Medicare [place], [place] [phone] [place], [place] [phone]
--- NOTE | 2018-02-12 10:54 | RAD REPORT ---
EXAM DESCRIPTION: [place] Single View02/12/2018 10:28 am CLINICAL HISTORY: Shortness of breath COMPARISON: December 2017 FINDINGS: Cudw-yy-buzreins bilateral pulmonary opacities are present. The heart is mildly enlarged. Postsurgical changes involve the chest. Pacemaker leads are in place IMPRESSION: Ahur-sl-lraledyo bilateral pulmonary opacities probably indicate CHF
--- NOTE | 2018-02-12 12:07 | EKG ---
Test Date: 2018-02-12 Test Time: 09:56:21 Table Runner: NURIS MEASUREMENT RESULTS: Intervals: Rate: 60 ME: 226 QRSD: 120 QT: 406 QTc: 406 Braxton: P: 57 ME: 226 QRS: 266 T: 92 INTERPRETIVE STATEMENTS: AV dual-paced rhythm with prolonged AV conduction Biventricular pacemaker detected Abnormal ECG Compared to ECG 12/12/2017 16:42:12 No significant changes Electronically Signed On 02-12-18 12:06:53 CDT by Ramon James
[2018-02-12 12:08] LABS: Absolute Lymphocytes (CBC) 1.8 K/uL (0.7-4.9); Absolute Monocytes 0.6 K/uL (0.1-1.3); Basophils % 0.4 % (0-1.3); Eosinophils % 1.1 % (0-4.4); Hematocrit 38.5 % (36.0-45.0); Lymphocytes % 14.1 % (15.3-44.8); MCH 31.4 pg (27.0-35.0); MCV 94.6 fL (80-100); Monocytes % 4.9 % (3.3-12.3); RBC Red Blood Cell Count 4.07 M/uL (3.86-4.86)
[2018-02-12 12:21] LABS: Magnesium 2.5 mg/dL (1.8-2.4)
[2018-02-12 12:23] LABS: Potassium 6.6 mmol/L (3.5-5.1)
--- NOTE | 2018-02-12 13:12 | EDPHYS ---
Physician Documentation [facility] Name: Karissa Frias Age: 82 yrs Sex: Female : 1935 Arrival Date: 02/12/2018 Time: 09:47 Bed 8 Private MD: ED Physician Jose Valverde HPI: 02/12 11:05 This 82 yrs old Black Female presents to ER via EMS with complaints of high potassium. rn 11:05 Reports sent from group home for high potassium, family unaware of details, patient rn not really communicative, has had kidney problems in past. . Onset: The symptoms/episode began/occurred at an unknown time. Severity of symptoms: At their worst the symptoms were moderate in the emergency department the symptoms are unchanged. The patient has experienced similar episodes in the past. The patient has been recently seen by a physician:. Historical: - Allergies: 10:12 No Known Allergies; ph - Home Meds: 10:12 amlodipine 2.5 mg tab 1 tab once daily [Active]; ascorbic acid (vitamin C) 500 mg tab ph [Active]; aspirin 81 mg Oral TbEC 1 tab once daily [Active]; carvedilol 12.5 mg Oral tab 1 tab 2 times per day [Active]; Plavix 75 mg Oral tab 1 tab once daily [Active]; digoxin 125 mcg Oral tab 1 tab once daily [Active]; Epogen 4,000 unit/mL injection soln 1 x per week on Saturday [Active]; furosemide 40 mg Oral tab 1 tab once daily [Active]; hydrochlorothiazide 25 mg Oral tab 1 tab once daily [Active]; melatonin 3 mg Oral tab nightly [Active]; Nephro-Josh 0.8 mg oral tab [Active]; Novolog 100 unit/mL Sub-Q soln per sliding scale [Active]; Questran 4 gram Oral pwpk 1 packet 2 times per day [Active]; acetaminophen 325 mg Oral tab 2 tabs every 4 hours for Pain [Active]; zinc sulfate 220 mg Oral tab daily [Active]; - PMHx: 10:12 Anemia; Atrial Fib; CAD; Diabetes - NIDDM; High Cholesterol; Hypertension; ph osteomyelitis; CHF; Renal Disease; dysphagia; - PSHx: 10:12 pacer/defib; PEG tube; ph - Immunization history:: Adult Immunizations unknown. - Social history:: Smoking status: Patient/guardian denies using tobacco. - Ebola Screening: : No symptoms or risks identified at this time. - Family history:: not pertinent. - Hospitalizations: : No recent hospitalization is reported. ROS: 11:05 Constitutional: Negative for fever, chills, and weight loss, Eyes: Negative for injury, rn pain, redness, and discharge, Neck: Negative for injury, pain, and swelling, Cardiovascular: Negative for chest pain, palpitations, and edema, Respiratory: Negative for shortness of breath, cough, wheezing, and pleuritic chest pain, Abdomen/GI: Negative for abdominal pain, nausea, vomiting, diarrhea, and constipation, MS/Extremity: Negative for injury and deformity, Neuro: + generalized weakness Exam: 11:05 Constitutional: This is a well developed, well nourished patient who is awake, alert, rn and in no acute distress. Head/Face: Normocephalic, atraumatic. Eyes: Pupils equal round and reactive to light, extra-ocular motions intact. Lids and lashes normal. Conjunctiva and sclera are non-icteric and not injected. Cornea within normal limits. Periorbital areas with no swelling, redness, or edema. Cardiovascular: Irregular, normal rate, no murmur Respiratory: Lungs have equal breath sounds bilaterally, clear to auscultation and percussion. No rales, rhonchi or wheezes noted. No increased work of breathing, no retractions or nasal flaring. Abdomen/GI: Soft, non-tender, with normal bowel sounds. No distension or tympany. No guarding or rebound. No evidence of tenderness throughout. MS/ Extremity: Pulses equal, no cyanosis. Neurovascular intact. Full, normal range of motion. Equal circumference. Neuro: Awake, alert, slow to respond, bilateral lower ext in pressure boots, moves upper extremities without problem Vital Signs: 09:58 BP 173 / 98; Pulse 60; Resp 16; Temp 97.7; Pulse Ox 95% on R/A; ph 11:38 BP 174 / 84; Pulse 65; Resp 16; Pulse Ox 96% on R/A; ph 12:11 BP 117 / 84; Pulse 67; Resp 17; Pulse Ox 97% on R/A; jb1 14:30 BP 184 / 87; Pulse 68; Resp 18; Temp 97.8; Pulse Ox 96% on R/A; ph 15:31 BP 166 / 92; Pulse 79; Resp 16; Pulse Ox 97% on R/A; ph MDM: 09:50 Patient medically screened. rn 13:09 Differential Diagnosis hyperkalemia, congestive heart failure, acute renal injury. Data rn reviewed: vital signs, nurses notes, lab test result(s), EKG, radiologic studies, and as a result, I will admit patient. Counseling: I had a detailed discussion with the patient and/or guardian regarding: the historical points, exam findings, and any diagnostic results supporting the discharge/admit diagnosis, lab results, radiology results, the need for further work-up and treatment in the hospital. Admission orders: after a detailed discussion of the patient's condition and case, the admit orders are written by me. 02/12 10:03 Order name: CBC with Diff rn 02/12 10:03 Order name: Basic Metabolic Panel rn 02/12 10:03 Order name: N-Terminal Pro-brain Natriuretic Peptide rn 02/12 10:03 Order name: Magnesium; Complete Time: 12:46 rn 02/12 10:04 Order name: CBC with Automated Diff; Complete Time: 12:46 EDMS 02/12 10:04 Order name: Basic Metabolic Panel; Complete Time: 12:46 EDMS 02/12 10:03 Order name: EKG; Complete Time: 10:04 rn 02/12 10:03 Order name: XRAY Chest (1 view); Complete Time: 10:57 rn 02/12 10:04 Order name: NT PRO-BNP; Complete Time: 12:46 EDMS 02/12 10:03 Order name: IV Start; Complete Time: 11:29 rn 02/12 10:03 Order name: EKG - Nurse/Tech; Complete Time: 10:25 rn Administered Medications: 13:30 Drug: Insulin Regular Human 5 units {Co-Signature: ph (Britney North RN).} Route: IVP; ss Site: right antecubital; 15:00 Follow up: Response: No adverse reaction ph 13:30 Drug: D50W 50 ml Route: IVP; Site: right antecubital; ss 15:00 Follow up: Response: No adverse reaction ph 13:30 Drug: Kayexalate 15 grams Route: PO; ss 15:00 Follow up: Response: No adverse reaction ph 13:30 Drug: Lasix 20 mg Route: IVP; Site: right antecubital; ss 15:00 Follow up: Response: No adverse reaction ph 13:45 Drug: [place] 5 mg-325 mg 1 tabs Route: PO; ss 15:50 Follow up: Response: No adverse reaction ph Disposition: 02/12/18 13:11 Hospitalization ordered by Christos Mccall for Inpatient Admission. Preliminary diagnosis are Hyperkalemia, Acute kidney failure, unspecified, Unspecified combined systolic (congestive) and diastolic (congestive) heart failure. - Bed requested for Telemetry/MedSurg (Inpatient). - Status is Inpatient Admission. ph - Condition is Stable. - Problem is new. - Symptoms have improved. UTI on Admission? No Signatures: Dispatcher [employer] EDMS Jose Valverde MD MD rn [facility] Center[facility] merino RN RN Nica Alcala Patricia, RN RN ph Britney North RN ph Corrections: (The following items were deleted from the chart) 15:05 13:11 Hospitalization Ordered by Christos Mccall DO for Inpatient Admission. Preliminary ag diagnosis is Hyperkalemia; Acute kidney failure, unspecified; Unspecified combined systolic (congestive) and diastolic (congestive) heart failure. Bed requested for Telemetry/MedSurg (Inpatient). Status is Inpatient Admission. Condition is Stable. Problem is new. Symptoms have improved. UTI on Admission? No. rn 16:30 15:05 02/12/2018 13:11 Hospitalization Ordered by Christos Mccall DO for Inpatient ph Admission. Preliminary diagnosis is Hyperkalemia; Acute kidney failure, unspecified; Unspecified combined systolic (congestive) and diastolic (congestive) heart failure. Bed requested for Telemetry/MedSurg (Inpatient). Status is Inpatient Admission. Condition is Stable. Problem is new. Symptoms have improved. UTI on Admission? No. ag
--- NOTE | 2018-02-12 13:12 | ER ---
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 Transition of care: patient was not received from another setting of care. Onset of symptoms was February 12, 2018. Risk Assessment: Do you want to hurt yourself or someone else? Patient reports no desire to harm self or others. Initial Sepsis Screen: Does the patient meet any 2 criteria? No. Patient's initial sepsis screen is negative. Does the patient have a suspected source of infection? No. Patient's initial sepsis screen is negative. Care prior to arrival: None. 09:55 Method Of Arrival: EMS: [facility] ph 09:55 Acuity: LAURO 2 ph Historical: - Allergies: 10:12 No Known Allergies; ph - Home Meds: 10:12 amlodipine 2.5 mg tab 1 tab once daily [Active]; ascorbic acid (vitamin C) 500 mg tab ph [Active]; aspirin 81 mg Oral TbEC 1 tab once daily [Active]; carvedilol 12.5 mg Oral tab 1 tab 2 times per day [Active]; Plavix 75 mg Oral tab 1 tab once daily [Active]; digoxin 125 mcg Oral tab 1 tab once daily [Active]; Epogen 4,000 unit/mL injection soln 1 x per week on Saturday [Active]; furosemide 40 mg Oral tab 1 tab once daily [Active]; hydrochlorothiazide 25 mg Oral tab 1 tab once daily [Active]; melatonin 3 mg Oral tab nightly [Active]; Nephro-Josh 0.8 mg oral tab [Active]; Novolog 100 unit/mL Sub-Q soln per sliding scale [Active]; Questran 4 gram Oral pwpk 1 packet 2 times per day [Active]; acetaminophen 325 mg Oral tab 2 tabs every 4 hours for Pain [Active]; zinc sulfate 220 mg Oral tab daily [Active]; - PMHx: 10:12 Anemia; Atrial Fib; CAD; Diabetes - NIDDM; High Cholesterol; Hypertension; ph osteomyelitis; CHF; Renal Disease; dysphagia; - PSHx: 10:12 pacer/defib; PEG tube; ph - Immunization history:: Adult Immunizations unknown. - Social history:: Smoking status: Patient/guardian denies using tobacco. - Ebola Screening: : No symptoms or risks identified at this time. - Family history:: not pertinent. - Hospitalizations: : No recent hospitalization is reported. Screenin:13 Abuse screen: Denies threats or abuse. Denies injuries from another. Nutritional ph screening: No deficits noted. Tuberculosis screening: No symptoms or risk factors identified. Fall Risk Total Turner Fall Scale indicates High Risk Score (45 or more points). Fall prevention measures have been instituted. Side Rails Up X 2 Placed Close to Nursing Station Frequent Obs/Assessments Occuring Family Present and informed to notify staff if the need to leave the bedside As available patient and family educated on Fall Prevention Program and Strategies. Assessment: 10:00 General: Appears in no apparent distress. comfortable, slender, Behavior is ph cooperative, anxious, quiet. Pain: Denies pain. Neuro: Level of Consciousness is awake, alert, obeys commands, Oriented to person, place. Cardiovascular: Denies chest pain, nausea, Capillary refill < 3 seconds in bilateral fingers Patient's skin is warm and dry. Rhythm is A-V sequential pacer. Respiratory: Airway is patent Respiratory effort is even, unlabored, Respiratory pattern is regular, symmetrical. GI: Abdomen is round non-distended, PEG tube in place, Site clean. Patient currently denies abdominal pain, diarrhea, nausea, vomiting. Derm: Skin is fragile, is thin, Skin is dry, Skin is normal, Skin temperature is warm Decubitus located on sacrum heel(s). Musculoskeletal: Circulation, motion, and sensation intact. Range of motion: intact in all extremities, jeff heel booties in place. 10:00 : [place] in place to gravity drainage. ph 11:31 Reassessment: Granddaughter's contact info: [phone]. Reassessment: Patient appears ph in no apparent distress at this time. Patient and/or family updated on plan of care and expected duration. Pain level reassessed. Pt lying in bed, attempting to take off leads and BP cuff, granddaughter states, " She said that her stomach is hurting." Pt nodded yes when questioned about lower abdominal pain, denies upper abdominal pain or nausea, family at bedside. 12:35 General: Dr. Valverde notified of critical lab value. Potassium 6.6. ss 13:45 Reassessment: Patient appears in no apparent distress at this time. No changes from ph previously documented assessment. Patient and/or family updated on plan of care and expected duration. Pain level reassessed. Pt cleaned of BM, large amount of loose stool noted. 15:00 Reassessment: Patient appears in no apparent distress at this time. Patient and/or ph family updated on plan of care and expected duration. Pain level reassessed. Pt resting quietly, family at bedside. 15:51 Reassessment: Patient appears in no apparent distress at this time. Patient and/or ph family updated on plan of care and expected duration. Pain level reassessed. Report called to 4th floor, pt waiting to be taken upstairs. Vital Signs: 09:58 BP 173 / 98; Pulse 60; Resp 16; Temp 97.7; Pulse Ox 95% on R/A; ph 11:38 BP 174 / 84; Pulse 65; Resp 16; Pulse Ox 96% on R/A; ph 12:11 BP 117 / 84; Pulse 67; Resp 17; Pulse Ox 97% on R/A; jb1 14:30 BP 184 / 87; Pulse 68; Resp 18; Temp 97.8; Pulse Ox 96% on R/A; ph 15:31 BP 166 / 92; Pulse 79; Resp 16; Pulse Ox 97% on R/A; ph ED Course: 09:47 Patient arrived in ED. pt 09:50 Jose Valverde MD is Attending Physician. rn 09:55 Britney North, JOAN is Primary Nurse. ph 09:58 Triage completed. ph 10:09 EKG done, by vehicle monitor technician. reviewed by Jose Valverde MD. tc 10:13 Arm band placed on. EKG completed in triage. Results shown to MD. ph 10:13 Patient has correct armband on for positive identification. Placed in gown. Bed in low ph position. Call light in reach. Side rails up X2. conduit cleaner on. Pulse ox on. NIBP on. Warm blanket given. 10:23 X-ray completed. Portable x-ray completed in exam room. Patient tolerated procedure sw well. 10:24 XRAY Chest (1 view) In Process Unspecified. EDMS 11:15 Missed attempt(s): 24 gauge in right forearm. Bleeding controlled, band aid applied, ph catheter tip intact. 11:30 Inserted saline lock: 22 gauge in right antecubital area, using aseptic technique. Blood collected. 13:10 Christos Mccall DO is Hospitalizing Provider. rn 15:41 No provider procedures requiring assistance completed. Patient admitted, IV remains in ph place. Administered Medications: 13:30 Drug: Insulin Regular Human 5 units {Co-Signature: ph (Britney North RN).} Route: IVP; ss Site: right antecubital; 15:00 Follow up: Response: No adverse reaction ph 13:30 Drug: D50W 50 ml Route: IVP; Site: right antecubital; ss 15:00 Follow up: Response: No adverse reaction ph 13:30 Drug: Kayexalate 15 grams Route: PO; ss 15:00 Follow up: Response: No adverse reaction ph 13:30 Drug: Lasix 20 mg Route: IVP; Site: right antecubital; ss 15:00 Follow up: Response: No adverse reaction ph 13:45 Drug: [place] 5 mg-325 mg 1 tabs Route: PO; ss 15:50 Follow up: Response: No adverse reaction ph Outcome: 13:11 Decision to Hospitalize by Provider. rn 15:51 Admitted to Tele accompanied by chip family with patient, via stretcher, room 402, ph with chart, Report called to JOAN Rosales 15:51 Condition: stable 16:30 Patient left the ED. ph Signatures: Dispatcher [employer] EDID Anthony Dahl1 Zina Matthews RN RN pt Jose Valverde MD MD rn Smirch, Shelby, RN RN ss Jaclyn English, engineering designer EKG [facility] Britney North RN RN Salma Kahn Britney North RN ph Corrections: (The following items were deleted from the chart) 14:53 13:45 D50W 50 ml IVP in left antecubital ss 14:54 13:45 Insulin Regular Human 5 units IVP in right antecubital ss 14:55 13:45 D50W 50 ml IVP in right antecubital ss 14:55 13:45 Kayexalate 15 grams PO ss ss 14:55 13:45 Lasix 20 mg IVP in right antecubital ss 15:36 11:31 Reassessment: Patient appears in no apparent distress at this time. Patient ph and/or family updated on plan of care and expected duration. Pain level reassessed. Patient is alert, oriented x 3, equal unlabored respirations, skin warm/dry/pink. Pt lying in bed, attempting to take off leads and BP cuff, granddaughter states, " She said that her stomach is hurting." Pt nodded yes when questioned about lower abdominal pain, denies upper abdominal pain or nausea, family at bedside ph 17:37 17:37 Response: No adverse reaction ph ph
[2018-02-12] MEDS ORDERED: SOD POLYSTYREN SUL 15 GM/60 ML UCUP ONE (13:21)
[2018-02-12] MEDS ORDERED: FUROSEMIDE 20 MG/ 2ML VIAL ONE (13:21)
[2018-02-12] MEDS ORDERED: D50W 25 GM/50 ML SYRINGE IV ONE (13:21)
[2018-02-12] MEDS ORDERED: INSULIN -REGULAR HUMAN 50 UNIT/0.5 ML ML ONE (13:23)
[2018-02-12] MEDS ORDERED: HYDROCODONE/APAP 5/325 MG TAB ONE (13:48)
[2018-02-12] MEDS ORDERED: D50W 25 GM/50 ML SYRINGE IV PRN ×2 (14:18→19:56)
[2018-02-12] MEDS ORDERED: ONDANSETRON 4 MG/2 ML VIAL IV PRN (14:18)
[2018-02-12] MEDS ORDERED: ACETAMINOPHEN 650MG/RECT SUPP PR PRN (14:18)
[2018-02-12] MEDS ORDERED: GLUCAGON 1 MG/VIAL IM PRN ×2 (14:18→19:56)
[2018-02-12] MEDS ORDERED: ACETAMINOPHEN 500 MG TAB PO PRN (14:18)
--- NOTE | 2018-02-12 15:02 | P.HP ---
Certification for Inpatient Patient admitted to: Observation With expected LOS: <2 Midnights Patient will require the following post-hospital care: Other (correction) Practitioner: I am a practitioner with admitting privileges, knowledge of patient current condition, hospital course, and medical plan of care. Services: Services provided to patient in accordance with Admission requirements found in Title 42 Section 412.3 of the Code of Federal Regulations Patient History Date of Service: 02/12/18 Primary Care Provider: Dr. Grier(correction), Nephrology-Dr. Paiz; Cardiology-Dr. Sofia Reason for admission: Abnormal lab History of Present Illness: 82-year-old female presented emergency room after she was sent from the shelter due to abnormal lab. Patient found to have hyperkalemia. Potassium was noted at 7.2. Patient did not have any significant shortness of breath, fever, chills. Patient with multiple medical problems including hypertension, diabetes, atrial fibrillation, history of PEG tube placement, CHF , chronic renal disease. The patient was evaluated in the emergency room. Repeat lab shows potassium is 6.6. BUN of 100, creatinine 2.1 with a GFR 27. Glucose 136. White count 12.6, hemoglobin 12.8. Calcium 10.4. Magnesium 2.4, BNP 49560. Chest x-ray showed mild volume overload. Patient stable in the ER. I was asked to admit the patient. Patient did receive Kayexalate in the emergency room. Patient did have a bowel movement with noted diarrhea. When I saw the patient she did not appear in any distress. Family at bedside. Allergies No Known Allergies Allergy (Verified 08/27/17 00:20) Home medications list reviewed: Yes Home Medications: Carvedilol [Coreg] 12.5 mg PO BID 10/22/16 Clopidogrel Bisulfate [Plavix*] 75 mg PO DAILY 10/22/16 Digoxin [Lanoxin] 0.125 mg PO DAILY 10/22/16 Furosemide [Lasix*] 40 mg PO BID 10/22/16 Aspirin 1 tab PO DAILY 08/27/17 Metformin HCl [Glucophage*] 500 mg PO BID 08/27/17 Collagenase [Santyl Ointment*] 1 appl TOP DAILY #1 tube 08/28/17 Nepro Shake [Nepro] 0 ml FT SEECOM 12/13/17 - Past Medical/Surgical History Diabetic: Yes -: Atrial fibrillation, NO chronic anticoagulation -: CAD -: HTN -: DM Type 2 -: Anemia of Chronic disease -: Chronic Renal Disease -: PVD -: DM Foot ulcer -: Diabetic neuropathy -: Malnutrition -: Hx of Pacemaker/Defibrillator -: PEG tube -: AICD placement -: PEG tube placement Psychosocial/ Personal History: correction placement - Family History Father -: Diabetes Mother -: Diabetes - Social History Smoking Status: Never smoker Alcohol use: No CD- Drugs: No Caffeine use: Yes Place of Residence: Custodial Review of Systems is unable to be obtained Physical Examination - Physical Exam General: Alert, In no apparent distress, Demented HEENT: Atraumatic, Mucous membr. moist/pink Neck: Supple Respiratory: Crackles/rales (Mild crackles to the bases bilateral) Cardiovascular: Normal pulses, Regular rate/rhythm Gastrointestinal: Normal bowel sounds, Soft and benign, Non-distended, No tenderness, No masses, No rebound, No guarding, Other (PEG tube in place) Musculoskeletal: No erythema, No tenderness, No warmth Integumentary: Other (Multiple ulcers noted.) Neurological: Abnormal strength (Muscle wasting to the upper and lower extremities. Patient bed-bound. Ulcers to the heels bilateral. Patient has sacral decubitus ulcer.), Dementia - Studies Laboratory Data (last 24 hrs) 02/12/18 11:30: WBC 12.6 H D, Hgb 12.8, Hct 38.5, Plt Count 410 H 02/12/18 11:30: Sodium 136, Potassium 6.6 H*, BUN 100 H, Creatinine 2.10 H, Glucose 136 H, Magnesium 2.5 H Assessment and Plan - Problems (Diagnosis) (1) Hyperkalemia Current Visit: Yes Status: Acute Plan: Patient giving Kayexalate in the emergency room. Patient will also get Lasix IV. Nephrology consulted due to history of chronic renal disease. Will verify shelter medication (2) Anemia Onset Date: 12/13/17 Current Visit: No Status: Chronic Plan: Patient with chronic anemia. Will monitor closely. Qualifiers: Anemia type: due to chronic kidney disease Chronic kidney disease stage: stage 3 (moderate) Qualified Code(s): N18.3 - Chronic kidney disease, stage 3 (moderate); D63.1 - Anemia in chronic kidney disease (3) CHF (congestive heart failure) Onset Date: 12/13/17 Current Visit: No Status: Acute Plan: Mild acute on chronic CHF. Will continue fluid restriction. Will continue IV Lasix. Will recheck chest x-ray. Patient without any respiratory distress. Qualifiers: Heart failure type: systolic Heart failure chronicity: acute on chronic Qualified Code(s): I50.23 - Acute on chronic systolic (congestive) heart failure (4) Chronic kidney disease (CKD) Current Visit: No Status: Acute Plan: Acute on chronic renal disease noted. Nephrology consulted. Will adjust medication. Qualifiers: (5) Atrial fibrillation Onset Date: 12/13/17 Current Visit: No Status: Chronic Plan: Patient with chronic atrial fibrillation. Will continue digoxin and rate control medication. Patient not on chronic anti coagulation therapy. Will provide DVT prophylaxis. Qualifiers: Atrial fibrillation type: chronic (6) CAD (coronary artery disease) Onset Date: 08/27/17 Current Visit: No Status: Chronic Plan: Continue medication. Qualifiers: (7) Diabetes mellitus Onset Date: 12/13/17 Current Visit: No Status: Chronic Plan: Will provide sliding scale. Qualifiers: Diabetes mellitus type: type 2 Diabetes mellitus remote computer terminal operator insulin use: unspecified care home insulin use status Diabetes mellitus complication status : with other specified complication Qualified Code(s): E11.69 - Type 2 diabetes mellitus with other specified complication (8) History of automatic internal cardiac defibrillator (AICD) Current Visit: No Status: Chronic Plan: Stable. Will monitor closely. (9) Hypertension Onset Date: 08/27/17 Current Visit: No Status: Chronic Plan: Will continue with her medication. Will monitor and adjust appropriately. Qualifiers: Hypertension type: essential hypertension (10) Dementia Onset Date: 08/27/17 Current Visit: No Status: Suspected Plan: Overall stable. Will monitor closely. Qualifiers: (11) Status post insertion of percutaneous endoscopic gastrostomy (PEG) tube Current Visit: Yes Status: Chronic Plan: Patient with PEG tube in place. Will continue to monitor. Will continue feeds. (12) DM foot ulcer Onset Date: 12/13/17 Current Visit: No Status: Chronic Plan: Multiple ulcers noted. Patient with osteomyelitis. Will check to see if the patient is still taking medication IV. Will consult wound care to further address and treat. Qualifiers: Diabetic foot ulcer location: other Diabetes mellitus type: type 2 Laterality: right (13) Diarrhea Current Visit: Yes Status: Acute Plan: Patient had an episode of diarrhea. Will check for C diff. Discharge Plan: Custodial Plan to discharge in: 24 Hours - Advance Directives Does patient have a Living Will: No Does patient have a Durable POA for Healthcare: No - Code Status/Comfort Care Code Status Assessed: Yes (Patient full code. This was addressed by medical power of disability attorney) Time Spent Managing Pts Care (In Minutes): 55
[2018-02-12] MEDS ORDERED: INSULIN -REGULAR HUMAN 50 UNIT/0.5 ML ML SQ SCH (16:30)
[2018-02-12] MEDS: CARVEDILOL 12.5 MG TAB PO SCH (16:45)
[2018-02-12] MEDS: ENOXAPARIN 30 MG/0.3 ML SQ SCH (16:46)
[2018-02-12] MEDS ORDERED: FUROSEMIDE 20 MG/ 2ML VIAL IV SCH (17:00)
[2018-02-12] MEDS ORDERED: CARVEDILOL 12.5 MG TAB FT SCH (21:00)
[2018-02-12] MEDS: MELATONIN 3 MG TABLET PO SCH (21:35)
[2018-02-12] MEDS: GLUCERNA 1.5 CAL 1,000 ML BOT FT SCH (21:36)
[2018-02-13 03:31] LABS: Absolute Lymphocytes (CBC) 1.8 K/uL (0.7-4.9); Absolute Monocytes 0.8 K/uL (0.1-1.3); Absolute Neutrophil 8.3 K/uL (1.8-8.0); Basophils % 0.7 % (0-1.3); Eosinophils % 2.2 % (0-4.4); Hematocrit 35.4 % (36.0-45.0); Lymphocytes % 15.8 % (15.3-44.8); MCH 30.6 pg (27.0-35.0); MCV 93.9 fL (80-100); MPV 8.8 fL (7.6-11.3); Monocytes % 7.4 % (3.3-12.3); RBC Red Blood Cell Count 3.77 M/uL (3.86-4.86)
[2018-02-13 03:40] LABS: Urine Appearance CLOUDY; Urine Bilirubin NEGATIVE (NEG); Urine Blood 2+ (NEG); Urine Color YELLOW; Urine Glucose NEGATIVE (NEG); Urine Protein NEGATIVE (NEG); Urine Urobilinogen 0.2 mg/dL (0.2-1.0)
[2018-02-13 03:42] LABS: Urine Microscopic Reflex ORDER UMIC
[2018-02-13 03:51] LABS: Urine Bacteria >50 /HPF (<20); Urine Culture Reflex Order REFLEXED; Urine RBC <5 /HPF (NONE SEEN)
[2018-02-13 03:54] LABS: CKMB Creatine Kinase MB 2.4 ng/mL (0.3-3.6); Magnesium 2.4 mg/dL (1.8-2.4); Potassium 5.5 mmol/L (3.5-5.1); Thyroid Stimulating Hormone 1.92 uIU/mL (0.36-3.74)
[2018-02-13] MEDS: CARVEDILOL 12.5 MG TAB PO SCH ×2 (05:44→18:26)
[2018-02-13] MEDS: INSULIN -REGULAR HUMAN 50 UNIT/0.5 ML ML SQ SCH ×4 (06:00→18:00)
[2018-02-13 08:10] LABS: CKMB Creatine Kinase MB 2.4 ng/mL (0.3-3.6)
[2018-02-13] MEDS ORDERED: SOD POLYSTYREN SUL 15 GM/60 ML UCUP PO ONE (08:14)
--- NOTE | 2018-02-13 08:15 | RAD REPORT ---
EXAM DESCRIPTION: [facility] Single View02/13/2018 6:29 am CLINICAL HISTORY: Shortness of breath COMPARISON: February 12, 2018 FINDINGS: Mild worsening in bilateral pulmonary opacities has occurred. The heart remains enlarged. Postsurgical changes involve the chest. Pacemaker leads are in place IMPRESSION: Worsening in moderate CHF
--- NOTE | 2018-02-13 08:21 | P.PN ---
Subjective Date of Service: 02/13/18 Primary Care Provider: Dr. Grier([facility]), Nephrology-Dr. Paiz; Cardiology-Dr. Sofia Chief Complaint: Abnormal lab Subjective: Demented (Patient stable. Patient with dementia. No complaints noted.) Physical Examination - Vital Signs Temperature: 97.0 F Blood Pressure: 171/79 Pulse: 59 Respirations: 18 Pulse Ox (%): 97 - Physical Exam General: Alert, Demented HEENT: Atraumatic Neck: Supple Respiratory: Crackles/rales (Slight crackles to the bases bilateral) Cardiovascular: Normal pulses, Regular rate/rhythm Gastrointestinal: Normal bowel sounds, Soft and benign, Non-distended, No tenderness, No masses, No rebound, No guarding, Other (PEG tube in place) Integumentary: No warmth, No cyanosis, Other (Patient with multiple ulcers to the heels bilateral and to the back.) Neurological: Abnormal strength (Muscle wasting to the upper and lower extremities. Patient bed-bound.) Urinary: Zarco catheter - Studies Laboratory Data (last 24 hrs) 02/12/18 11:30: WBC 12.6 H D, Hgb 12.8, Hct 38.5, Plt Count 410 H 02/12/18 11:30: Sodium 136, Potassium 6.6 H*, BUN 100 H, Creatinine 2.10 H, Glucose 136 H, Magnesium 2.5 H 02/12/18 07:19: Troponin I 0.15 H Medications List Reviewed: Yes Assessment & Plan - Problems (Diagnosis) (1) Hyperkalemia Onset Date: 02/13/18 Current Visit: Yes Status: Acute Plan: Recheck potassium improved but still elevated. Will give another round of Kayexalate. Will increase Lasix to 40 mg IV twice daily. Chest x-ray still shows CHF pattern. Will recheck chest x-ray again tomorrow. Will monitor potassium. Anticipate discharge as early as tomorrow back to the assisted. Nephrology consulted await further recommendations. I will turn the service over to Dr. Foy tomorrow. I will go over the plan of care with her. (2) Anemia Onset Date: 12/13/17 Current Visit: No Status: Chronic Plan: Patient with chronic anemia. Will monitor closely. Qualifiers: Anemia type: due to chronic kidney disease Chronic kidney disease stage: stage 3 (moderate) Qualified Code(s): N18.3 - Chronic kidney disease, stage 3 (moderate); D63.1 - Anemia in chronic kidney disease (3) CHF (congestive heart failure) Onset Date: 12/13/17 Current Visit: No Status: Acute Plan: X-ray shows CHF. Will increase Lasix 40 mg IV twice daily. Will continue 1500 cc per day fluid restriction. Will monitor closely. Will recheck chest x-ray again tomorrow. Patient respiratory status stable. Likely back to the assisted tomorrow if much improved. Qualifiers: Heart failure type: systolic Heart failure chronicity: acute on chronic Qualified Code(s): I50.23 - Acute on chronic systolic (congestive) heart failure (4) Chronic kidney disease (CKD) Current Visit: No Status: Acute Plan: Acute on chronic renal disease noted. Nephrology consulted. Await further recommendation. Medications adjusted. Qualifiers: Chronic kidney disease stage: stage 3 (moderate) Qualified Code(s): N18.3 - Chronic kidney disease, stage 3 (moderate) (5) Atrial fibrillation Onset Date: 12/13/17 Current Visit: No Status: Chronic Plan: Patient with chronic atrial fibrillation. Will continue digoxin and rate control medication. Patient not on chronic anti coagulation therapy due to risk of bleeding. Will provide DVT prophylaxis. Qualifiers: Atrial fibrillation type: chronic (6) CAD (coronary artery disease) Onset Date: 08/27/17 Current Visit: No Status: Chronic Plan: Continue medication. Qualifiers: Coronary Disease-Associated Artery/Lesion type: unspecified vessel or lesion type (7) Diabetes mellitus Onset Date: 12/13/17 Current Visit: No Status: Chronic Plan: Will provide sliding scale. Qualifiers: Diabetes mellitus type: type 2 Diabetes mellitus oil heaterman insulin use: unspecified retirement insulin use status Diabetes mellitus complication status : with other specified complication Qualified Code(s): E11.69 - Type 2 diabetes mellitus with other specified complication (8) History of automatic internal cardiac defibrillator (AICD) Current Visit: No Status: Chronic Plan: Stable. Will monitor closely. (9) Hypertension Onset Date: 08/27/17 Current Visit: No Status: Chronic Plan: Will continue with her medication. Will monitor and adjust appropriately. Qualifiers: Hypertension type: essential hypertension (10) Dementia Onset Date: 08/27/17 Current Visit: No Status: Suspected Plan: Overall stable. Will monitor closely. Qualifiers: (11) Status post insertion of percutaneous endoscopic gastrostomy (PEG) tube Onset Date: 02/13/18 Current Visit: Yes Status: Chronic Plan: Patient with PEG tube in place. Will continue to monitor. Will continue feeds. (12) DM foot ulcer Onset Date: 12/13/17 Current Visit: No Status: Chronic Plan: Multiple ulcers noted. Patient with history of osteomyelitis. Patient was treated in the past with IV antibiotic therapy. Will continue with wound care. Will verify with residential to see when antibiotics were completed. Qualifiers: Diabetic foot ulcer location: other Diabetes mellitus type: type 2 Laterality: right (13) Diarrhea Onset Date: 02/13/18 Current Visit: Yes Status: Acute Plan: Patient had an episode of diarrhea. Will check for C diff. Discharge Plan: [facility] Plan to discharge in: 24 Hours Time Spent Managing Pts Care (In Minutes): 55
[2018-02-13] MEDS: GLUCERNA 1.5 CAL 1,000 ML BOT FT SCH ×5 (08:55→21:00)
[2018-02-13] MEDS: FUROSEMIDE 40 MG/4 ML VIAL IV SCH ×2 (08:56→18:26)
[2018-02-13] MEDS: DIGOXIN 0.125 MG TABLET PO SCH (08:56)
[2018-02-13] MEDS: CLOPIDOGREL 75 MG TABLET PO SCH (08:57)
[2018-02-13] MEDS: ASPIRIN EC 81 MG TAB PO SCH (08:57)
[2018-02-13] MEDS ORDERED: CLOPIDOGREL 75 MG TABLET FT SCH (09:00)
[2018-02-13] MEDS ORDERED: AMLODIPINE 2.5 MG TAB PO SCH (09:00)
[2018-02-13] MEDS: HYDRALAZINE HCL 25 MG TABLET PO SCH (14:18)
[2018-02-13] MEDS: ENOXAPARIN 30 MG/0.3 ML SQ SCH (18:26)
[2018-02-13] MEDS: MELATONIN 3 MG TABLET PO SCH (21:00)
[2018-02-13] MEDS: ZINC OXIDE 20% OINTMENT 60gm TOP SCH (21:00)
[2018-02-14] MEDS: HYDRALAZINE HCL 25 MG TABLET PO SCH ×3 (01:18→14:13)
[2018-02-14] MEDS: MELATONIN 3 MG TABLET PO SCH (01:22)
[2018-02-14 05:31] LABS: Absolute Lymphocytes (CBC) 2.2 K/uL (0.7-4.9); Absolute Monocytes 0.8 K/uL (0.1-1.3); Absolute Neutrophil 7.4 K/uL (1.8-8.0); Basophils % 0.6 % (0-1.3); Eosinophils % 3.3 % (0-4.4); Hematocrit 34.4 % (36.0-45.0); Lymphocytes % 20.4 % (15.3-44.8); MCH 31.5 pg (27.0-35.0); MCV 93.8 fL (80-100); MPV 8.7 fL (7.6-11.3); Monocytes % 7.7 % (3.3-12.3); RBC Red Blood Cell Count 3.67 M/uL (3.86-4.86)
[2018-02-14 05:50] LABS: Magnesium 2.5 mg/dL (1.8-2.4)
[2018-02-14] MEDS: INSULIN -REGULAR HUMAN 50 UNIT/0.5 ML ML SQ SCH ×3 (06:00→12:00)
[2018-02-14] MEDS: CARVEDILOL 12.5 MG TAB PO SCH (07:49)
[2018-02-14] MEDS: GLUCERNA 1.5 CAL 1,000 ML BOT FT SCH ×3 (07:50→14:15)
--- NOTE | 2018-02-14 08:14 | CON ---
Date of Consultation: 02/13/[address] Mccall' service on 02/12/2018. The patient was seen by me on 02/13/2018. Reason For Consultation: Congestive heart failure and hyperkalemia. History Of Present Illness: Mrs. Frias is an 82-year-old woman with extensive past medical history . 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 This was on echo done on December of 2017. She has recurrent admission to the hospital because of that. She has a history of pacemaker. She has a history of renal insufficiency. She has stage IV decubitus ulcers. She has hypertension, history of coronary artery disease, atrial fibrill ation, pulmonary hypertension, diabetes, dyslipidemia, and chronic anemia, came in with congestive he art failure, was found to be hyperkalemic. Chest x-ray shows CHF. Her troponin is 0.15. Her BNP is 89,283. She has a paced rhythm on the EKG. Potassium is 6.6. Her creatinine is 2.1. Her glucose is 144. Allergies: NONE. Review of Systems: Negative. Social History: Negative. Review of Systems: Negative. 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 Medications: Include Lasix, insulin, Norvasc, aspirin, Coreg, Plavix, digoxin. Physical Examination: Vital Signs: Stable. She was in a paced rhythm. HEENT Exam: Negative. Neck: Supple. No bruit, lymphadenopathy, JVD, or thyromegaly. Chest: Clear to auscultation and percussion. Cardiac: Revealed regular rhythm and rate with tricuspid regurgitation, murmur, and S3 gallops. Abdomen: Benign. Extremities: Revealed 1+ edema. Diagnostic Data: As stated earlier. Impression And Plan: Acute exacerbation of chronic systolic congestive heart failure. Has an ejecti on fraction of 20%. Has a defibrillator and pacemaker. Has severe pulmonary hypertension. Needs to be diuresed with IV Lasix. I will change the Norvasc to hydralazine considering her christiano estive heart failure. Continue her other present regimen. renal consultation, seen her f or her hyperkalemia and renal insufficiency. I would not repeat any further cardiac workup at this p oint. She just had her echo a month or 2 ago. Other problems include history of pacemaker placement , hypertension, diabetes, dyslipidemia, chronic anemia, paroxysmal atrial fibrillation, coronary jose ry disease, and severe pulmonary hypertension. All of these seem to be stable at this point. The ca se was discussed in detail with Dr. Mccall. We will follow her along. SAUMYA Voice ID: [id number] Report ID: [id number]
[2018-02-14] MEDS: DIGOXIN 0.125 MG TABLET PO SCH (09:00)
[2018-02-14] MEDS ORDERED: COLLAGENASE 30 GM OINTMENT TOP SCH (09:00)
[2018-02-14] MEDS: ZINC OXIDE 20% OINTMENT 60gm TOP SCH (09:00)
[2018-02-14] MEDS: ASPIRIN EC 81 MG TAB PO SCH ×2 (09:00→09:08)
[2018-02-14] MEDS: CLOPIDOGREL 75 MG TABLET PO SCH (09:08)
[2018-02-14] MEDS: FUROSEMIDE 40 MG/4 ML VIAL IV SCH (09:08)
[2018-02-14] MEDS ORDERED: ASPIRIN 81 MG CHEWABLE TABLET PO SCH (09:45)
--- NOTE | 2018-02-14 15:03 | P.DS ---
Admission Date: 02/12/18 Discharge Date: 02/14/18 Primary Care Provider: Dr. Grier([facility]), Nephrology-Dr. Paiz; Cardiology-Dr. Sofia Disposition: HOSPICE-HOME Discharge Condition: FAIR Reason for Admission: Abnormal lab Consultations: Cardiology Nephrology Procedures: None - Problems (1) Hyperkalemia Onset Date: 02/13/18 Current Visit: Yes Status: Acute (2) Acute kidney injury superimposed on CKD Onset Date: 08/27/17 Current Visit: No Status: Acute (3) CHF (congestive heart failure) Onset Date: 12/13/17 Current Visit: No Status: Acute Qualifiers: Heart failure type: systolic Heart failure chronicity: acute on chronic Qualified Code(s): I50.23 - Acute on chronic systolic (congestive) heart failure (4) Diabetes Onset Date: 08/27/17 Current Visit: No Status: Acute Qualifiers: Diabetes mellitus type: type 2 Diabetes mellitus buttermaker continuous churn insulin use: without buttermaker continuous churn use Diabetes mellitus complication status: with unspecified complications Qualified Code(s): E11.8 - Type 2 diabetes mellitus with unspecified complications (5) Atrial fibrillation Onset Date: 12/13/17 Current Visit: No Status: Chronic Qualifiers: Atrial fibrillation type: chronic (6) CAD (coronary artery disease) Onset Date: 08/27/17 Current Visit: No Status: Chronic Qualifiers: Coronary Disease-Associated Artery/Lesion type: unspecified vessel or lesion type (7) History of automatic internal cardiac defibrillator (AICD) Current Visit: No Status: Chronic (8) Hypertension Onset Date: 08/27/17 Current Visit: No Status: Chronic Qualifiers: Hypertension type: essential hypertension (9) Malnutrition Onset Date: 12/13/17 Current Visit: No Status: Chronic Qualifiers: Malnutrition type: protein-calorie malnutrition Protein-calorie malnutrition severity: severe Qualified Code(s): E43 - Unspecified severe protein-calorie malnutrition (10) Dementia Onset Date: 08/27/17 Current Visit: No Status: Suspected Qualifiers: (11) Status post insertion of percutaneous endoscopic gastrostomy (PEG) tube Onset Date: 02/13/18 Current Visit: Yes Status: Chronic (12) Pressure ulcer of coccygeal region, stage 3 Current Visit: No Status: Acute (13) 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 Current Visit: No Status: Acute (14) Stage III pressure ulcer of right heel Current Visit: No Status: Acute Brief History of Present Illness: See HPI Hospital Course: Overall during the hospital stay patient remained stable Patient was initially admitted to the hospital for hyperkalemia most likely secondary to volume overload secondary to CHF versus acute kidney injury. Patient had cardiology and nephrology consulted here in the hospital. Patient was initially kept on IV Lasix and was switched over to oral Lasix once her swelling had subsided. Patient was also switch from Norvasc to hydralazine. Patient had an echocardiogram done recently and this was not repeated here during this hospital visit. Per cardiology's recommendations patient needs to be continued on hydralazine and Lasix for her diastolic dysfunction. The patient was also found to have hyperkalemia while here in the hospital was given Kayexalate in the ER and her hyperkalemia resolved. While here in the hospital patient was also found to have a UA with 3+ gram-negative rods. He was started on Levaquin and switched over to p.o. Levaquin on discharge. On day 3 of hospitalization the patient's family member at bedside mentioned that patient had already started any shading hospice care at the [facility] and was going to be involved in [facility]. At that time [facility] was consulted and recommended the patient will be transitioned over to their care once discharged from the hospital. Once patient had resolution of her symptoms patient was discharged home with hospice. Vital Signs/Physical Exam: Temp Pulse Resp BP Pulse Ox 99.3 F 57 16 163/78 H 98 02/14/18 12:00 02/14/18 12:00 02/14/18 12:00 02/14/18 12:00 02/14/18 12:00 General: Alert, In no apparent distress HEENT: Atraumatic, PERRLA, EOMI Neck: Supple, JVD not distended Respiratory: Clear to auscultation bilaterally, Normal air movement Cardiovascular: Regular rate/rhythm, Normal S1 S2 Gastrointestinal: Normal bowel sounds, No tenderness Musculoskeletal: No tenderness Integumentary: No rashes Neurological: Normal speech, Normal tone, Normal affect Lymphatics: No axilla or inguinal lymphadenopathy Laboratory Data at Discharge: WBC 10.8 K/uL (4.3-10.9) 02/14/18 05:18 Hgb 11.6 g/dL (12.0-15.0) L 02/14/18 05:18 Hct 34.4 % (36.0-45.0) L 02/14/18 05:18 Plt Count 353 K/uL (152-406) 02/14/18 05:18 Sodium 140 mmol/L (136-145) 02/14/18 05:18 Potassium 5.0 mmol/L (3.5-5.1) 02/14/18 05:18 BUN 98 mg/dL (7-18) H 02/14/18 05:18 Creatinine 2.10 mg/dL (0.55-1.3) H 02/14/18 05:18 Glucose 126 mg/dL (74-106) H 02/14/18 05:18 Magnesium 2.5 mg/dL (1.8-2.4) H 02/14/18 05:18 Troponin I 0.16 ng/mL (0.0-0.045) H 02/13/18 03:08 Triglycerides 52 mg/dL (<150) 02/13/18 03:08 Cholesterol 123 mg/dL (<200) 02/13/18 03:08 HDL Cholesterol 54 mg/dL (40-60) 02/13/18 03:08 Cholesterol/HDL Ratio 2.28 02/13/18 03:08 Home Medications: Carvedilol [Coreg] 12.5 mg FT BID 10/22/16 Clopidogrel Bisulfate [Plavix*] 75 mg FT DAILY 10/22/16 Digoxin [Lanoxin] 0.125 mg FT DAILY 10/22/16 Furosemide [Lasix*] 40 mg FT DAILY 10/22/16 Aspirin 1 tab FT DAILY 08/27/17 Acetaminophen [Tylenol] 2 tab FT Q4HP PRN 02/12/18 Ascorbic Acid [C-1000] 500 mg FT DAILY 02/12/18 Cholestyramine (with Sugar) [Questran Packet] 4 gm FT BID 02/12/18 Epoetin Luigi [Epogen] 4,000 unit SQ SEECOM 02/12/18 Folic Acid/Vitamin B Comp W-C [Nephro-Josh Tablet] 0.8 mg FT DAILY 02/12/18 Hydrochlorothiazide 25 mg FT DAILY 02/12/18 Insulin Aspart [Novolog] See Protocol SQ 02/12/18 Melatonin 3 mg FT BEDTIME 02/12/18 Zinc Sulfate [Zinc Sulfate*] 220 mg FT DAILY 02/12/18 Hydralazine [Apresoline*] 25 mg PO TID #90 tab 02/14/18 Levofloxacin [Levaquin] 500 mg PO DAILY #10 tablet 02/14/18 New Medications: Hydralazine [Apresoline*] 25 mg PO TID #90 tab Levofloxacin [Levaquin] 500 mg PO DAILY #10 tablet Patient Discharge Instructions: [facility]. -You will resume all your home medication except norvasc which has been changed to Hydrazaline. New medication. Levaquin. Hydrazaline Diet: Regular Activity: Ad brayan Followup: [facility] -
--- NOTE | 2018-02-14 21:28 | P.CNS ---
Date of Consult: 02/13/18 Reason for Consult: Hyperkalemia Requesting Physician: Christos Mccall Primary Care Provider: Dr. Grier([facility]), Nephrology-Dr. Paiz; Cardiology-Dr. Sofia Chief Complaint: Abnormal lab History of Present Illness: 82 yo BF CKD, HTN presented to the ER from SNF with hyperkalemia. Limited IH/ ROS due to dementia. Allergies No Known Allergies Allergy (Verified 08/27/17 00:20) Home medications list reviewed: Yes Home Medications: Carvedilol [Coreg] 12.5 mg FT BID 10/22/16 Clopidogrel Bisulfate [Plavix*] 75 mg FT DAILY 10/22/16 Digoxin [Lanoxin] 0.125 mg FT DAILY 10/22/16 Furosemide [Lasix*] 40 mg FT DAILY 10/22/16 Aspirin 1 tab FT DAILY 08/27/17 Acetaminophen [Tylenol] 2 tab FT Q4HP PRN 02/12/18 Ascorbic Acid [C-1000] 500 mg FT DAILY 02/12/18 Cholestyramine (with Sugar) [Questran Packet] 4 gm FT BID 02/12/18 Epoetin Luigi [Epogen] 4,000 unit SQ SEEC[facility] 02/12/18 Folic Acid/Vitamin B Comp W-C [Nephro-Josh Tablet] 0.8 mg FT DAILY 02/12/18 Hydrochlorothiazide 25 mg FT DAILY 02/12/18 Insulin Aspart [Novolog] See Protocol SQ 02/12/18 Melatonin 3 mg FT BEDTIME 02/12/18 Zinc Sulfate [Zinc Sulfate*] 220 mg FT DAILY 02/12/18 Hydralazine [Apresoline*] 25 mg PO TID #90 tab 02/14/18 Levofloxacin [Levaquin] 500 mg PO DAILY #10 tablet 02/14/18 - Past Medical/Surgical History Diabetic: Yes -: Atrial fibrillation, NO chronic anticoagulation -: CAD -: HTN -: DM Type 2 -: Anemia of Chronic disease -: Chronic Renal Disease -: PVD -: DM Foot ulcer -: Diabetic neuropathy -: Malnutrition -: Hx of Pacemaker/Defibrillator -: PEG tube -: AICD placement -: PEG tube placement Psychosocial/ Personal History: [facility] placement - Family History Father Medical History: Diabetes Mother Medical History: Diabetes - Social History Smoking Status: Unknown if ever smoked Alcohol use: No CD- Drugs: No Caffeine use: Yes Place of Residence: [place] Review of Systems 10-point ROS is otherwise unremarkable General: Weakness, Malaise Physical Examination Temp Pulse Resp BP Pulse Ox 99.3 F 57 16 163/78 H 98 02/14/18 12:00 02/14/18 12:00 02/14/18 12:00 02/14/18 12:00 02/14/18 12:00 General: In no apparent distress, Cachectic HEENT: Atraumatic Neck: Supple Respiratory: Clear to auscultation bilaterally, Normal air movement Cardiovascular: No edema, Regular rate/rhythm Gastrointestinal: Soft and benign, Non-distended Musculoskeletal: No clubbing, Contractures Integumentary: No rashes, No cyanosis Neurological: Abnormal strength Initial potassium 6.6. Blood work reviewed in the chart. Imagings Data: CXR: CHF Conclusions/Impression: A/ CKD IV. Hyperkalemia. HTN with CKD. DM II with CKD. Diastolic CHF, chronic. Anemia in CKD. Hypercalcemia. Hypermagnesemia. P/ Continue current POC and Medications. Agree with kayexalate. No NSAIDs. AM labs. Daily weight. Thank you kindly for the consultation.
== END 2018-02-14 15:49 | disposition hospice, home (50) | DRG 682 ==
LOC: ER 09:35 → ERHOLD 13:36 → 4TH 15:49
PROVIDERS: ADMIT Family Medicine; ATTEND Family Medicine
DX: N17.9 Acute kidney failure, unspecified (principal); L89.153 Pressure ulcer of sacral region, stage 3; L89.623 Pressure ulcer of left heel, stage 3; L89.613 Pressure ulcer of right heel, stage 3; I50.23 Acute on chronic systolic (congestive) heart failure; E43 Unspecified severe protein-calorie malnutrition; I13.0 Hypertensive heart and chronic kidney disease with heart failure and stage 1 through stage 4 chronic kidney disease, or unspecified chronic kidney disease; N39.0 Urinary tract infection, site not specified; N18.4 Chronic kidney disease, stage 4 (severe); E87.5 Hyperkalemia; F03.90 Unspecified dementia, unspecified severity, without behavioral disturbance, psychotic disturbance, mood disturbance, and anxiety; I25.10 Atherosclerotic heart disease of native coronary artery without angina pectoris; I73.9 Peripheral vascular disease, unspecified; E11.22 Type 2 diabetes mellitus with diabetic chronic kidney disease; E11.621 Type 2 diabetes mellitus with foot ulcer; E11.40 Type 2 diabetes mellitus with diabetic neuropathy, unspecified; D63.1 Anemia in chronic kidney disease; E83.52 Hypercalcemia; I27.20 Pulmonary hypertension, unspecified; R19.7 Diarrhea, unspecified; L97.519 Non-pressure chronic ulcer of other part of right foot with unspecified severity; E83.41 Hypermagnesemia; I48.2 Chronic atrial fibrillation; Z95.810 Presence of automatic (implantable) cardiac defibrillator; Z93.1 Gastrostomy status; Z79.02 Long term (current) use of antithrombotics/antiplatelets; Z79.82 Long term (current) use of aspirin; Z79.4 Long term (current) use of insulin
CPT/HCPCS: 36415; 71045; 80048; 80061; 81003; 81015; 82550; 82553; 82962; 83735; 83880; 84132; 84439; 84443; 84484; 85025; 87045; 87046; 87077; 87086; 87088; 87186; 87493; 93005; 96374; 96375; 99285; J1650; J1940; J3590

== ENCOUNTER 2018-04-08 08:38 | Inpatient (IN) | payer OTHER ==
--- OUTSIDE RECORDS SUMMARY | 2018-04-08 08:41 | XMS REPORT | Clinical Summary ---
:1935 Author Organization [facility] Address [address] [place] [address] Care Team Providers Name Role Phone Ester [...] Overview: Added automatically from request for surgery [id number] Encounters Date Type Specialty Care Team Description 11/12/2017 Anesthesia Event Gastroenterology Marija Can MD 11/12/2017 Procedure Pass Gastroenterology 11/12/2017 Surgery Gastroenterology Rosa, EGD WITH PEG Denny Khan MD INSERTION 11/07/2017 Anesthesia Event Intensive Care Junie Hodgson CRNA 11/07/2017 Procedure Pass Gastroenterology 11/07/2017 Surgery Gastroenterology Rosa EGD WITH control of Denny Khan MD bleeding 11/07/2017 Procedure Pass General Surgery 11/03/2017 [facility] Internal Shawn Gamaoktaha Upper GI bleed (Primary Dx ); - Encounter Medicine MD Mickey Toxic metabolic encephalopathy 11/13/2017 after 04/07/2017 Social History Tobacco Use Types Packs/Day Years [...] procedure are in the results section. after 04/07/2017 Results POC glucose (11/13/2017 11:32 AM)Only the most recent of53 resultswithin the time period is included. POC glucose 164 (H) 65 - 99 mg/dL [facility] DEPARTMENT OF PATHOLOGY AND Comment: GENOMIC MEDICINE RN Notified Meter ID: [id number] Auto Body Man: Gennaro Tyler Performing Organization Address City/State/Zipcode Phone Number [facility] DEPARTMENT OF PATHOLOGY [address] [facility] [place] [address] AND GENOMIC MEDICINE Estimated GFR (11/13/2017 4:45 AM)Only the most recent of13 resultswithin the time period is included. GFR Non Af Amer 19 (A) mL/min/1.73 m2 [facility] DEPARTMENT OF PATHOLOGY AND GENOMIC MEDICINE GFR Af Amer 24 (A) mL/min/1.73 m2 [facility] DEPARTMENT OF Comment: PATHOLOGY AND GENOMIC [...] specimen Performing Organization Address City/State/Zipcode Phone Number [facility] DEPARTMENT OF PATHOLOGY [address] [place] [address] AND [employer] [facility] CBC with platelet and differential (11/13/2017 4:45 AM)Only the most recent of12 resultswithin the time period is included. WBC 9.3 4.5 - 11.0 k/uL [facility] DEPARTMENT OF PATHOLOGY AND GENOMIC MEDICINE RBC 3.05 (L) 4.20 - 5.50 m/uL [facility] DEPARTMENT OF PATHOLOGY AND GENOMIC MEDICINE HGB 8.8 (L) 12.0 - 16.0 g/dL [facility] DEPARTMENT OF PATHOLOGY AND GENOMIC MEDICINE HCT 25.4 (L) 37.0 - 47.0 % [facility] DEPARTMENT OF PATHOLOGY AND GENOMIC MEDICINE MCV 83.3 82.0 - 100.0 fL [facility] DEPARTMENT OF PATHOLOGY AND GENOMIC MEDICINE MCH 28.9 27.0 - 34.0 pg [facility] DEPARTMENT OF PATHOLOGY AND GENOMIC MEDICINE MCHC 34.6 31.0 - 37.0 g/dL [facility] DEPARTMENT OF PATHOLOGY AND GENOMIC MEDICINE RDW - SD 49.3 37.0 - 55.0 fL [facility] DEPARTMENT OF PATHOLOGY AND GENOMIC MEDICINE MPV 11.4 (H) 6.9 - 11.0 fL [facility] DEPARTMENT OF PATHOLOGY AND GENOMIC MEDICINE Platelet count 62 (L) 150 - 400 K/uL [facility] DEPARTMENT OF PATHOLOGY AND GENOMIC MEDICINE Nucleated RBC 0.50 /100 WBC [facility] DEPARTMENT OF PATHOLOGY AND GENOMIC MEDICINE Neutrophils 76.3 (H) 39.0 - 69.0 % [facility] DEPARTMENT OF PATHOLOGY AND GENOMIC MEDICINE Lymphocytes 13.7 (L) 25.0 - 45.0 % [facility] DEPARTMENT OF PATHOLOGY AND GENOMIC MEDICINE Monocytes 7.3 0.0 - 10.0 % [facility] DEPARTMENT OF PATHOLOGY AND GENOMIC MEDICINE Eosinophils 1.5 0.0 - 5.0 % [facility] DEPARTMENT OF PATHOLOGY AND GENOMIC MEDICINE Basophils 0.1 0.0 - 1.0 % [facility] DEPARTMENT OF PATHOLOGY AND GENOMIC MEDICINE Immature granulocytes 1.1 (H) 0.0 - 1.0 % [facility] DEPARTMENT OF PATHOLOGY AND GENOMIC MEDICINE Specimen Blood Performing Organization Address City/State/Zipcode Phone Number [facility] DEPARTMENT OF PATHOLOGY [address] [place] [address] AND [employer] [facility] Comprehensive metabolic panel (11/13/2017 4:45 AM)Only the most recent of8 resultswithin the time period is included. Sodium 135 135 - 148 mEq/L [facility] DEPARTMENT OF PATHOLOGY AND GENOMIC MEDICINE Potassium 3.9 3.5 - 5.0 mEq/L [facility] DEPARTMENT OF PATHOLOGY AND GENOMIC MEDICINE Chloride 105 98 - 112 mEq/L [facility] DEPARTMENT OF PATHOLOGY AND GENOMIC MEDICINE CO2 17 (L) 24 - 31 mEq/L [facility] DEPARTMENT OF PATHOLOGY AND GENOMIC MEDICINE Anion gap 13 7 - 15 mEq/L [facility] DEPARTMENT OF Comment: PATHOLOGY AND GENOMIC Starting from November , anion gap calculation MEDICINE no longer incorporates potassium. Please note the change. BUN 51 (H) 8 - 23 mg/dL [facility] DEPARTMENT OF PATHOLOGY AND GENOMIC MEDICINE Creatinine 2.4 (H) 0.5 - 0.9 mg/dL [facility] DEPARTMENT OF PATHOLOGY AND GENOMIC MEDICINE Glucose 152 (H) 65 - 99 mg/dL [facility] DEPARTMENT OF PATHOLOGY AND GENOMIC MEDICINE Calcium 8.6 (L) 8.8 - 10.2 mg/dL [facility] DEPARTMENT OF PATHOLOGY AND GENOMIC MEDICINE Protein 5.1 (L) 6.3 - 8.3 g/dL [facility] DEPARTMENT OF PATHOLOGY AND GENOMIC MEDICINE Albumin 2.1 (L) 3.5 - 5.0 g/dL [facility] DEPARTMENT OF PATHOLOGY AND GENOMIC MEDICINE A/G ratio 0.7 0.7 - 3.8 [facility] DEPARTMENT OF PATHOLOGY AND GENOMIC MEDICINE Alkaline phosphatase 83 35 - 104 U/L [facility] DEPARTMENT OF PATHOLOGY AND GENOMIC MEDICINE AST 9 (L) 10 - 35 U/L [facility] DEPARTMENT OF PATHOLOGY AND GENOMIC MEDICINE ALT 6 5 - 50 U/L [facility] DEPARTMENT OF PATHOLOGY AND GENOMIC MEDICINE Total bilirubin 0.3 0.2 - 1.2 mg/dL [facility] DEPARTMENT OF PATHOLOGY AND GENOMIC MEDICINE Specimen Plasma specimen Performing Organization Address City/[facility]/Zipcode Phone Number [facility] DEPARTMENT OF PATHOLOGY [address] [place] [address] AND [facility] Prothrombin time with INR (11/12/2017 6:20 AM)Only the most recent of5 resultswithin the time period is included. Prothrombin time 19.0 (H) 12.0 - 15.0 sec [facility] DEPARTMENT OF PATHOLOGY AND GENOMIC MEDICINE INR 1.6 [facility] DEPARTMENT OF Comment: PATHOLOGY AND GENOMIC The International Normalized Ratio (INR) is a therapeutic MEDICINE monitoring tool for patients who are stable on oral anticoagulant therapy. An INR of 2.0-3.0 is suggested for deep vein thrombosis/pulmonary embolism. Specimen Blood Performing Organization Address [facility] Phone Number [facility] DEPARTMENT OF PATHOLOGY [address] [place] [address] AND [facility] Phosphorus level (11/11/2017 4:10 AM)Only the most recent of3 resultswithin the time period is included. Phosphorus 3.0 2.4 - 4.5 mg/dL [facility] DEPARTMENT OF PATHOLOGY AND GENOMIC MEDICINE Specimen Plasma specimen Performing Organization Address City/[facility] Phone Number [facility] DEPARTMENT OF PATHOLOGY [address] [place] [address] AND [facility] Magnesium level (11/11/2017 4:10 AM)Only the most recent of9 resultswithin the time period is included. Magnesium 1.9 1.6 - 2.4 mg/dL [facility] DEPARTMENT OF PATHOLOGY AND GENOMIC MEDICINE Specimen Plasma specimen Performing Organization Address City/[facility]/Zipcode Phone Number [facility] DEPARTMENT OF PATHOLOGY [address] [place] [address] AND [facility] Basic metabolic panel (11/11/2017 4:10 AM)Only the most recent of5 resultswithin the time period is included. Sodium 140 135 - 148 mEq/L [facility] DEPARTMENT OF PATHOLOGY AND GENOMIC MEDICINE Potassium 4.4 3.5 - 5.0 mEq/L [facility] DEPARTMENT OF PATHOLOGY AND GENOMIC MEDICINE Chloride 110 98 - 112 mEq/L [facility] DEPARTMENT OF PATHOLOGY AND GENOMIC MEDICINE CO2 16 (L) 24 - 31 mEq/L [facility] DEPARTMENT OF PATHOLOGY AND [facility]ICINE Anion gap 14 7 - 15 mEq/L [facility] DEPARTMENT OF Comment: PATHOLOGY AND GENOMIC Starting from November , anion gap calculation MEDICINE no longer incorporates potassium. Please note the change. BUN 53 (H) 8 - 23 mg/dL [facility] DEPARTMENT OF PATHOLOGY AND GENOMIC MEDICINE Creatinine 2.3 (H) 0.5 - 0.9 mg/dL [facility] DEPARTMENT OF PATHOLOGY AND GENOMIC MEDICINE Glucose 227 (H) 65 - 99 mg/dL [facility] DEPARTMENT OF PATHOLOGY AND GENOMIC MEDICINE Calcium 8.4 (L) 8.8 - 10.2 mg/dL [facility] DEPARTMENT OF PATHOLOGY AND [facility] Specimen Plasma specimen Performing Organization Address City/[facility] Phone Number [facility] DEPARTMENT PATHOLOGY [address] [place] [address] AND [facility] Hemoglobin & hematocrit (11/08/2017 10:05 AM)Only the most recent of4 resultswithin the time period is included. HGB 9.8 (L) 12.0 - 16.0 g/dL [facility] DEPARTMENT OF PATHOLOGY AND [facility] HCT 27.8 (L) 37.0 - 47.0 % [facility] DEPARTMENT OF PATHOLOGY AND [facility] Specimen Blood Performing Organization Address [facility] Phone Number [facility] [address] [place] [address] AND [facility] [employer] RBC (11/08/2017 5:49 AM)Only the most recent of5 resultswithin the time period is included.[employer] fresh frozen plasma (11/08/2017 3:32 AM)Only the most recent of5 resultswithin the time period is included.Partial thromboplastin time, activated (11/08/2017 2:45 AM)Only the most recent of3 resultswithin the time period is included. PTT 37.7 (H) 23.0 - 36.0 sec [facility] DEPARTMENT OF Comment: PATHOLOGY AND [facility] PTT therapeutic range for unfractionated heparin is MEDICINE 61.0-112.0 seconds which corresponds to Anti-Xa 0.3-0.7 U/ml. Specimen Blood Performing Organization Address [facility] Phone Number [facility] DEPARTMENT OF PATHOLOGY [address] [place] [address]. [place] [address] AND [employer] MEDICINE Fibrinogen (11/08/2017 2:45 AM) Fibrinogen 210 200 - 450 mg/dL [facility] DEPARTMENT OF PATHOLOGY AND GENOMIC MEDICINE Specimen Blood Performing Organization Address City/[facility] Phone Number [facility] DEPARTMENT OF PATHOLOGY [address] [place] [address]. [place] [address] AND [employer] MEDICINE Lactic acid level (11/08/2017 2:45 AM)Only the most recent of3 resultswithin the time period is included. Lactic acid 1.6 0.5 - 2.2 mmol/L [facility] DEPARTMENT OF PATHOLOGY AND [employer] MEDICINE Specimen Plasma specimen Performing Organization Address [facility] Phone Number [facility] DEPARTMENT OF PATHOLOGY [address] [place] [address]. [place] [address] AND [employer] MEDICINE Ionized calcium (11/08/2017 2:45 AM) pH 7.42 [facility] DEPARTMENT OF PATHOLOGY AND GENOMIC MEDICINE Ionized calcium 1.18 1.11 - 1.32 mmol/L [facility] DEPARTMENT OF PATHOLOGY AND [employer] MEDICINE Specimen Plasma specimen Performing Organization Address [facility] Phone Number [facility] DEPARTMENT OF PATHOLOGY [address] [place] [address]. [place] [address] AND [employer] platelets (11/07/2017 10:07 PM)Only the most recent of2 resultswithin the time period is included.Hemoglobin A1c (11/07/2017 5:10 PM) Hemoglobin A1C 5.9 4.0 - 6.0 % [facility] DEPARTMENT OF PATHOLOGY Comment: AND GENOMIC MEDICINE Less than 6% - Goal of therapy for Type II Diabetes Less than 7%-Goal of therapy for Type I Diabetes Less than 8%-Acceptable control for Type I or Type II Diabetes Greater than 8%-Unacceptable control; action indicated. ([id number]) Specimen Blood Performing Organization Address City/[facility] Phone Number [facility] DEPARTMENT OF PATHOLOGY [address] [place] [address]. [place] [id number] AND [employer] MEDICINE ECG 12 lead (11/07/2017 9:33 AM) Ventricular rate 85 [facility]USE Atrial rate 85 [facility] FL interval 112 [facility] QRSD interval 72 [facility] QT interval 358 [facility] QTC interval 426 [facility] P axis 1 0 [facility] QRS axis 1 127 [facility] M[facility] T wave axis -39 [facility] MUSE EKG impression Electronic ventricular pacemaker-No previous [facility] MUSE ECGs available- Performing Organization Address City/State/Zipcode Phone Number [facility] MUSE [address] [place] [address] Arterial blood gas (11/07/2017 8:22 AM) pH, arterial 7.38 7.35 - 7.45 [facility] DEPARTMENT OF PATHOLOGY AND GENOMIC MEDICINE pCO2, arterial 16 (LL)Comment: 35 - 45 mmHg [facility] DEPARTMENT OF Result called with PATHOLOGY AND GENOMIC read back to Margy Machado RN/5E 08:39 11/07/2017 slel pO2, arterial 132 (H) 80 - 90 mmHg [facility] DEPARTMENT OF PATHOLOGY AND GENOMIC MEDICINE Bicarbonate, arterial 8.9 (L) 21.0 - 28.0 mmol/L [facility] DEPARTMENT OF PATHOLOGY AND GENOMIC MEDICINE Base excess, arterial -16 (L) -2 - 2 mEq/L [facility] DEPARTMENT OF PATHOLOGY AND GENOMIC MEDICINE O2 saturation, arterial 98 95 - 100 % [facility] DEPARTMENT OF PATHOLOGY AND GENOMIC MEDICINE Specimen Blood Performing Organization Address City/[facility]/Zipcode Phone Number [facility] DEPARTMENT OF PATHOLOGY [address] [place] [address] AND [employer] MEDICINE Prepare RBC, 4 Units (11/07/2017 7:45 AM)Only the most recent of3 resultswithin the time period is included. Product name Red Blood Cells -1, [facility] DEPARTMENT OF Leukored PATHOLOGY AND GENOMIC MEDICINE Unit number [id number] [facility] DEPARTMENT OF PATHOLOGY AND GENOMIC MEDICINE Product code [id number] [facility] DEPARTMENT OF PATHOLOGY AND GENOMIC MEDICINE Dispense status Transfused [facility] DEPARTMENT OF PATHOLOGY AND GENOMIC MEDICINE Blood expiration date [facility] DEPARTMENT OF PATHOLOGY AND GENOMIC MEDICINE Blood type code 8400 [facility] DEPARTMENT OF PATHOLOGY AND GENOMIC MEDICINE Blood type AB POSITIVE [facility] DEPARTMENT OF PATHOLOGY AND GENOMIC MEDICINE Product name Red Blood Cells -1, [facility] DEPARTMENT OF Leukored PATHOLOGY AND GENOMIC MEDICINE Unit number [id number] [facility] DEPARTMENT OF PATHOLOGY AND GENOMIC MEDICINE Product code [id number] [facility] DEPARTMENT OF PATHOLOGY AND GENOMIC MEDICINE Dispense status Transfused [facility] DEPARTMENT OF PATHOLOGY AND GENOMIC MEDICINE Blood expiration date [id number] [facility] DEPARTMENT OF PATHOLOGY AND GENOMIC MEDICINE Blood type code 8400 [facility] DEPARTMENT OF PATHOLOGY AND GENOMIC MEDICINE Blood type AB POSITIVE [facility] DEPARTMENT OF PATHOLOGY AND GENOMIC MEDICINE Performing Organization Address City/State/Zipcode Phone Number [facility] DEPARTMENT OF PATHOLOGY [address] [place] [address]. [place] [address] AND [employer] MEDICINE Type and screen (11/07/2017 7:45 AM)Only the most recent of2 resultswithin the time period is included. ABO grouping AB [facility] DEPARTMENT OF PATHOLOGY AND GENOMIC MEDICINE Rh type POS [facility] DEPARTMENT OF PATHOLOGY AND GENOMIC MEDICINE Antibody screen (gel) NEG [facility] DEPARTMENT OF PATHOLOGY AND GENOMIC MEDICINE Performing Organization Address City/[facility]/Zipcode Phone Number [facility] DEPARTMENT OF PATHOLOGY [address] [place] [address]. [place] [address] AND [facility] Occult blood, stool (11/06/2017 4:00 PM) Occult blood, stool Positive for Occult blood (A) [facility] DEPARTMENT OF Comment: PATHOLOGY AND GENOMIC Specimen Information MEDICINE Specimen Source: Stool Specimen Site: Nonpreserved Specimen Stool - Nonpreserved Performing Organization Address City/State/Zipcode Phone Number [facility] DEPARTMENT OF PATHOLOGY [address] [place] [address]. [place] [address] AND [employer] [facility] IR PICC Placement (11/06/2017 2:06 PM) [...] insertion. Performing Organization Address City/State/Zipcode Phone Number [facility] [address] [place] [address] [place] Guided Vascular Access (11/06/2017 2:06 PM) [...] Address City/State/Zipcode Phone Number [facility] [address] [place] [address] duplex arterial lower extremity (11/05/2017 10:49 AM) [...] INDEX: Posterior tibial: Noncompressible. Dorsalis pedis: Noncompressible. [facility]-[id number] [place]ELSON Guidelines: >1.4: Calcified Vessel 0.9-1.4: Normal [...] INDEX: Posterior tibial: Noncompressible. Dorsalis pedis: Noncompressible. [facility]-[id number] [place]ELSON Guidelines: >1.4: Calcified Vessel 0.9-1.4: Normal 0.7-0.89: Mild PAD 0.51-0.69: Moderate PAD <0.5: Severe PAD Performing Organization Address City/[facility]/Zipcode Phone Number [facility] [address] [place] [address] XR Chest 1 Vw Portable (11/05/2017 5:40 AM)Only the most recent of2 resultswithin the time period is included. Narrative Performed At EXAMINATION:XR CHEST 1 VW PORTABLE [facility] CLINICAL HISTORY:Pneumonia COMPARISON:Most Recent IMPRESSION: Heart and mediastinum are stable. Left-sided AICD again noted. Perihilar interstitial and patchy opacities without new infiltrates. Bones are osteopenic. [facility]-[id number] Procedure Note Hm Interface, Radiology Results Incoming - 11/05/2017 7:31 AM CDT EXAMINATION: XR CHEST 1 VW PORTABLE CLINICAL HISTORY: Pneumonia COMPARISON: Most Recent IMPRESSION: Heart and mediastinum are stable. Left-sided AICD again noted. Perihilar interstitial and patchy opacities without new infiltrates. Bones are osteopenic. [facility]-[id number] Performing Organization Address [facility] Phone Number [facility] [address] [place] [address] Total iron binding capacity (11/05/2017 4:35 AM) Iron level 106 37 - 145 ug/dL [facility] DEPARTMENT OF PATHOLOGY AND GENOMIC MEDICINE Iron binding capacity 137 (L) 260 - 460 ug/dL [facility] DEPARTMENT OF PATHOLOGY AND GENOMIC MEDICINE % Saturation 77.4 (H) 15.0 - 38.0 % [facility] DEPARTMENT OF PATHOLOGY AND GENOMIC MEDICINE Specimen Plasma specimen Performing Organization Address City/[facility]/Zipcode Phone Number [facility] DEPARTMENT OF PATHOLOGY [address] [place] [address] AND GENOMIC [facility] Folate level (11/05/2017 4:35 AM) Folate 2.9 (L) 4.8 - 24.2 ng/mL [facility] DEPARTMENT OF PATHOLOGY AND GENOMIC MEDICINE Specimen Serum Performing Organization Address City/[facility]/Zipcode Phone Number [facility] DEPARTMENT OF PATHOLOGY AND [address] [place] [address] GENOMIC MEDICINE Ferritin level (11/05/2017 4:35 AM) Ferritin level 439 (H) 13 - 150 ng/mL [facility] DEPARTMENT OF PATHOLOGY AND GENOMIC MEDICINE Specimen Plasma specimen Performing Organization Address City/State/Zipcode Phone Number [facility] DEPARTMENT OF PATHOLOGY AND [address] [place] [address] GENOMIC MEDICINE Prepare platelet pheresis, 1 Units (11/04/2017 9:10 AM) Product name Apheresis PLT, Leukored IRR [facility] DEPARTMENT OF #2 PATHOLOGY AND GENOMIC MEDICINE Unit number [id number] [facility] DEPARTMENT OF PATHOLOGY AND GENOMIC MEDICINE Product code [id number] [facility] DEPARTMENT OF PATHOLOGY AND GENOMIC MEDICINE Dispense status Transfused [facility] DEPARTMENT OF PATHOLOGY AND GENOMIC MEDICINE Blood expiration date [facility] [facility] DEPARTMENT OF PATHOLOGY AND GENOMIC MEDICINE Blood type code 6200 [facility] DEPARTMENT OF PATHOLOGY AND GENOMIC MEDICINE Blood type A POSITIVE [facility] DEPARTMENT OF PATHOLOGY AND GENOMIC MEDICINE Performing Organization Address City/State/Zipcode Phone Number [facility] DEPARTMENT OF PATHOLOGY [id number] [place] [phone] AND [employer] MEDICINE Prepare fresh frozen plasma, 4 Units (11/04/2017 9:10 AM) Product name Thawed Plasma [facility] DEPARTMENT OF PATHOLOGY AND GENOMIC MEDICINE Unit number [id number] [facility] DEPARTMENT OF PATHOLOGY AND GENOMIC MEDICINE Product code [id number] [facility] DEPARTMENT OF PATHOLOGY AND GENOMIC MEDICINE Dispense status Transfused [facility] DEPARTMENT OF PATHOLOGY AND GENOMIC MEDICINE Blood expiration date [facility] DEPARTMENT OF PATHOLOGY AND GENOMIC MEDICINE Blood type code 8400 [facility] DEPARTMENT OF PATHOLOGY AND GENOMIC MEDICINE Blood type AB POSITIVE [facility] DEPARTMENT OF PATHOLOGY AND GENOMIC MEDICINE Product name Thawed Plasma [facility] DEPARTMENT OF PATHOLOGY AND GENOMIC MEDICINE Unit number [id number] [facility] DEPARTMENT OF PATHOLOGY AND GENOMIC MEDICINE Product code [id number] [facility] DEPARTMENT OF PATHOLOGY AND GENOMIC MEDICINE Dispense status Transfused [facility] DEPARTMENT OF PATHOLOGY AND GENOMIC MEDICINE Blood expiration date [facility] DEPARTMENT OF PATHOLOGY AND GENOMIC MEDICINE Blood type code 8400 [facility] DEPARTMENT OF PATHOLOGY AND GENOMIC MEDICINE Blood type AB POSITIVE [facility] DEPARTMENT OF PATHOLOGY AND GENOMIC MEDICINE Product name Thawed Plasma [facility] DEPARTMENT OF PATHOLOGY AND GENOMIC MEDICINE Unit number [id number] [facility] DEPARTMENT OF PATHOLOGY AND GENOMIC MEDICINE Product code [id number] [facility] DEPARTMENT OF PATHOLOGY AND GENOMIC MEDICINE Dispense status Transfused [facility] DEPARTMENT OF PATHOLOGY AND GENOMIC MEDICINE Blood expiration date [facility] DEPARTMENT OF PATHOLOGY AND GENOMIC MEDICINE Blood type code 8400 [facility] DEPARTMENT OF PATHOLOGY AND GENOMIC MEDICINE Blood type AB POSITIVE [facility] DEPARTMENT OF PATHOLOGY AND GENOMIC MEDICINE Product name Thawed Plasma [facility] DEPARTMENT OF PATHOLOGY AND GENOMIC MEDICINE Unit number [id number] [facility] DEPARTMENT OF PATHOLOGY AND GENOMIC MEDICINE Product code [id number] [facility] DEPARTMENT OF PATHOLOGY AND GENOMIC MEDICINE Dispense status Transfused [facility] DEPARTMENT OF PATHOLOGY AND GENOMIC MEDICINE Blood expiration date [facility] DEPARTMENT OF PATHOLOGY AND GENOMIC MEDICINE Blood type code 8400 [facility] DEPARTMENT OF PATHOLOGY AND GENOMIC MEDICINE Blood type AB POSITIVE [facility] DEPARTMENT OF PATHOLOGY AND GENOMIC MEDICINE Specimen Blood Performing Organization Address City/[facility] Phone Number [facility] DEPARTMENT OF PATHOLOGY [address] [place] [address] AND [facility] Thyroid stimulating hormone (11/04/2017 4:40 AM) TSH 2.28 0.27 - 4.20 uIU/mL [facility] DEPARTMENT OF PATHOLOGY AND GENOMIC MEDICINE Specimen Plasma specimen Performing Organization Address [facility] Phone Number [facility] DEPARTMENT OF PATHOLOGY [address] [place] [address] AND [facility] Digoxin level (11/04/2017 4:40 AM) Digoxin 3.2 (HH) 0.8 - 2.0 ng/mL [facility] DEPARTMENT OF PATHOLOGY Comment: AND [employer] [facility] For valid Digoxin results, at least 6 hours should elapse between time of last dose and collection of blood. Otherwise, result may be false high. Therapeutic Range: 0.8 - 2.0 ng/mL Final results called to and read back by JOAN MATTHEWS 11/04/2017 05:58 [place] Specimen Plasma specimen Performing Organization Address [facility] Phone Number [facility] DEPARTMENT OF PATHOLOGY [address] [place] [address] AND [employer] [facility] Urinalysis screen and microscopy, with reflex to culture (11/03/2017 2:45 PM) Specimen site [place] [facility] DEPARTMENT OF PATHOLOGY AND GENOMIC MEDICINE Color, UA Yellow [facility] DEPARTMENT OF PATHOLOGY AND GENOMIC MEDICINE Appearance, UA Turbid [facility] DEPARTMENT OF PATHOLOGY AND GENOMIC MEDICINE Specific gravity, UA 1.009 1.001 - 1.030 [facility] DEPARTMENT OF PATHOLOGY AND GENOMIC MEDICINE pH, UA 5.0 5.0 - 9.0 [facility] DEPARTMENT OF PATHOLOGY AND GENOMIC MEDICINE Protein, UA 1+ (A) Negative [facility] DEPARTMENT OF PATHOLOGY AND GENOMIC MEDICINE Glucose, UA Negative Negative [facility] DEPARTMENT OF PATHOLOGY AND GENOMIC MEDICINE Ketones, UA Trace (A) Negative [facility] DEPARTMENT OF PATHOLOGY AND GENOMIC MEDICINE Bilirubin, UA Negative Negative [facility] DEPARTMENT OF PATHOLOGY AND GENOMIC MEDICINE Blood, UA Moderate (A) Negative [facility] DEPARTMENT OF PATHOLOGY AND GENOMIC MEDICINE Nitrite, UA Negative Negative [facility] DEPARTMENT OF PATHOLOGY AND GENOMIC MEDICINE Urobilinogen, UA <2.0 <2.0 E.U./dL [facility] DEPARTMENT OF PATHOLOGY AND GENOMIC MEDICINE Leukocyte esterase, UA Large (A) Negative [facility] DEPARTMENT OF PATHOLOGY AND GENOMIC MEDICINE Epithelial cells, UA 7 /HPF [facility] DEPARTMENT OF PATHOLOGY AND GENOMIC MEDICINE WBC, UA >200 (H) 0 - 4 /HPF [facility] DEPARTMENT OF PATHOLOGY AND GENOMIC MEDICINE RBC, UA 84 (H) 0 - 2 /HPF [facility] DEPARTMENT OF PATHOLOGY AND GENOMIC MEDICINE Bacteria, UA Few None seen [facility] DEPARTMENT OF PATHOLOGY AND GENOMIC MEDICINE WBC clumps, UA Many (A) [facility] DEPARTMENT OF PATHOLOGY AND GENOMIC MEDICINE Yeast, UA Few (A) [facility] DEPARTMENT OF PATHOLOGY AND GENOMIC MEDICINE Yeast with pseudohyphae, UA None seen [facility] DEPARTMENT OF PATHOLOGY AND GENOMIC MEDICINE Hyaline casts, UA >20 (A) /LPF [facility] DEPARTMENT OF PATHOLOGY AND GENOMIC MEDICINE Specimen Urine Performing Organization Address City/State/Zipcode Phone Number [facility] DEPARTMENT OF PATHOLOGY [address] [place] [address] AND [facility] Gram stain (11/03/2017 2:45 PM) Gram stain result Many WBC's [facility] DEPARTMENT OF PATHOLOGY AND [place] Yeast [facility] Comment: Specimen Information Specimen Source: Urine Specimen Site: [place] Specimen Urine - [place] Performing Organization Address City/State/Zipcode Phone Number [facility] DEPARTMENT OF PATHOLOGY AND [address] [place] [address] [facility] Urine culture (11/03/2017 2:45 PM) Urine culture isolate Rosy glabrata [facility] DEPARTMENT OF >10-5 cfu/ml PATHOLOGY AND GENOMIC The performance characteristics of this assay on this isolate MEDICINE were validated by the Microbiology Laboratory at [facility].This source has not been approved by [...] BP >256 mcg/mL: Resistant Performing Organization Address [facility] Phone Number [facility] DEPARTMENT OF PATHOLOGY AND [address] [place] [phone] GENOMIC MEDICINE Blood culture, aerobic & anaerobic (11/03/2017 1:12 AM)Only the most recent of2 resultswithin the time period is included. Blood culture isolate No growth after 5 days of incubation. [facility] DEPARTMENT OF Comment: PATHOLOGY AND GENOMIC Specimen Information MEDICINE Specimen Source: Blood Specimen Site: Hand Left Specimen Blood - Antecubital, right Performing Organization Address [facility] Phone Number [facility] DEPARTMENT OF PATHOLOGY AND [address] [place] [address] GENOMIC MEDICINE after 04/07/2017 Insurance Payer Benefit Plan / Group Subscriber ID Type Phone Address MEDICAID MEDICAID xxxxxxxxx Medicaid MEDICARE MEDICARE PART A AND B xxxxxxxxxx Medicare [place], [place] [phone] [place], [place] [phone]
--- OUTSIDE RECORDS SUMMARY | 2018-04-08 08:42 | XMS REPORT ---
:1935 Author Organization [facility] Address [address] [place] [address] Dr. [address] [place] [address] Care Team Providers Name Role Phone HARDIK [...] Department ID 2017-09-10 2017-09-10 Outpatient Telma COOK [facility] [id number] 18:56:00 18:56:00 HARDIK 2017-07-01 2017-07-04 Inpatient DAWOOD CARVALHO TELE [id number] 22:15:00 15:46:00 [place] Results Test Description Test Time Test Comments Text Results Atomic Results Result Comments Sed Rate ESR ([place]) 2017-09-10 22:33:00 Test Item Value Reference Range Comments ESR (test code=HESR) 44 mm/Hr 0-20 CBC with [id number] 20:59:00 Test Item Value Reference Range Comments [...] Lymph Abs (test code=ALYMPH) 1.6 K/cumm 0.5-4.6 [place] Abs (test code=AMONO) 0.5 K/cumm 0.0-1.2 Eos Abs (test code=AEOS) 0.10 K/cumm 0.00-0.74 Baso Abs (test code=ABASO) 0.0 K/cumm 0.00-0.21 Hypochromic (test code=HYPO) Slight Lipid [id number] 20:09:00 Test Item Value Reference Range Comments Cholesterol (test 208 mg/dL 0-200 code=CHOL) Triglycerides (test 178 mg/dL 9-200 code=TRIG) HDL (test code=HDL) 45 mg/dL 50-60 Chol/HDL (test 4.6 Ratio 0.0-4.4 code=CHOLPHDL) LDL, Calculated (test 127 mg/dL 0-130 (NOTE)RISK OF HEART code=LDLC) DISEASEPublished by Chinese Heart AssociationAnalyte Optimal Boderline Increased RiskCHOL <200 200-239 >240TRIG <150 150-199 >200HDL Male: >60 <40HDL Female: >60 <50LDL <100 130-159 >160LDL NEAR OPTIMAL IS 100-129 VLDL (test code=VLDL) 36 mg/dL 5-40 LDL/HDL (test code=LDLPHDL) 3 [id number] 20:09:00 Test Item Value Reference Range Comments Lipase (test code=LIP) 31 U/L 13-60 [id number] 20:09:00 Test Item Value Reference Range Comments Amylase (test code=SHAKIR) 92 U/L 28-100 [id number] 20:09:00 Test Item Value Reference Range Comments NT ProBnp (test code=PBNP) 04536 pg/mL 0-449 Comprehensive Metabolic [id number] 20:09:00 Test Item Value Reference Range Comments [...] race is not provided, and the patient isAfrican-Chinese, multiply by 1.212. If sex is not provided, and thepatient is female, multiply by 0.742. Results for patients <18 years ofage have not been validated by the MDRD study and should be interpretedwith caution.eGFR Result Interpretation:eGFR > or=60 is in the Normal RangeeGFR < 60 may mean kidney diseaseeGFR < 15 may mean kidney failureRanges recommended by the National Kidney Foundation,http://nkdep.nih .gov BLOOD [id number] 23:30:00 Test Item Value Reference Range Comments Culture Observations (test code=COB1) NO GROWTH AFTER 5 DAYS BLOOD [id number] 23:30:00 Test Item Value Reference Range Comments Culture Observations (test code=COB1) NO GROWTH AFTER 5 DAYS WOUND/SKIN/ABS.&GRAMSTAIN [id number] 08:20:00 Test Item Value Reference Range Comments [...] (test code=lev) ug/mL GLUCOMETER GLUCOSE- LAB USE [id number] 11:39:00 Test Item Value Reference Range Comments GLUCOMETER (test code=GMG) 113 mg/dL 70-100 DAILY MAINTENANCEMeter ID: [id number]: 9086 JAYY NAVARRO URINE [id number] 11:21:00 Test Item Value Reference Range Comments Isolate 1 (test code=ISO1) Pseudomonas aeruginosa piperacillin/tazobactam (test ug/mL code=tzp) ceftazidime (test code=santos) ug/mL cefepime (test code=fep) ug/mL meropenem (test code=mem) ug/mL gentamicin (test code=gm) ug/mL tobramycin (test code=tob) ug/mL levofloxacin (test code=lev) ug/mL WOUND/SKIN/ABS.&GRAMSTAIN [id number] 10:08:00 Test Item Value Reference Range Comments [...] (test code=lev) ug/mL GLUCOMETER GLUCOSE- LAB USE [id number] 05:13:00 Test Item Value Reference Range Comments GLUCOMETER (test code=GMG) 81 mg/dL 70-100 CLEANED METERMeter ID: [id number]: 5187 LETDWAYNE GOLDMAN PRO TIME AND [id number] 04:39:00 Test Item Value Reference Range Comments [...] Heparin. Order Code is ANTI-XA COMPREHENSIVE METABOLIC [id number] 04:32:00 Test Item Value Reference Range Comments [...] (test code=RBCMOR) NORMAL GLUCOMETER GLUCOSE- LAB USE [id number] 21:05:00 Test Item Value Reference Range Comments GLUCOMETER (test code=GMG) 116 mg/dL 70-100 Meter ID: [id number]: 5187 ROBERT GOLDMAN GLUCOMETER GLUCOSE- LAB USE [id number] 16:42:00 Test Item Value Reference Range Comments GLUCOMETER (test code=GMG) 247 mg/dL 70-100 DAILY MAINTENANCEMeter ID: [id number]: 9086 JAYY NAVARRO GLUCOMETER GLUCOSE- LAB USE [id number] 13:21:00 Test Item Value Reference Range Comments GLUCOMETER (test code=GMG) 206 mg/dL 70-100 DAILY MAINTENANCEMeter ID: [id number]: 9086 JAYY NAVARRO U/S KIDNEY (RENAL)2017-07-03 12:24:18RENAL ULTRASOUNDLocation Code: [id number] HISTORY: arfCOMPARISON: None.COMMENT: Real-time sonographic images of [...] acute abnormality.U/S ART FLW DOPPLER STELLA LOW [id number] 11:52:11BILATERAL LOWER EXTREMITY ARTERIAL DOPPLER :Location code: [id number] HISTORY: Bilateral leg pain with peripheral vascular [...] RBC MORPH (test code=RBCMOR) NORMAL COMPREHENSIVE METABOLIC [id number] 06:16:00 Test Item Value Reference Range Comments [...] 8 IU/L <=78 GLUCOMETER GLUCOSE- LAB USE [id number] 05:30:00 Test Item Value Reference Range Comments GLUCOMETER (test code=GMG) 118 mg/dL 70-100 CLEANED METERMeter ID: [id number]: 2907 MARGE MixxSU GLUCOMETER GLUCOSE- LAB USE [id number] 22:27:00 Test Item Value Reference Range Comments GLUCOMETER (test code=GMG) 158 mg/dL 70-100 Meter ID: [id number]: 2907 MARGE OWSU GLUCOMETER GLUCOSE- LAB USE [id number] 21:35:00 Test Item Value Reference Range Comments GLUCOMETER (test code=GMG) 63 mg/dL 70-100 Meter ID: [id number]: 2907 MARGE OWSU EOSINOPHIL SMEAR [id number] 19:44:00 Test Item Value Reference Range Comments EO URINE (test code=EOU) MODERATE /OIF NONE SEEN CREATININE RANDOM [id number] 19:30:00 Test Item Value Reference Range Comments CREA RAND (test code=CREAR) 47.8 mg/dL NRR (test code=NRR) * NO REFRENCE RANGE AVAILABLE FOR RANDOM SPECIMEN* PROTEIN URINE [id number] 19:18:00 Test Item Value Reference Range Comments HOWARD DOE (test code=MO) 76 mg/dL NRR (test code=NRR) * NO REFRENCE RANGE AVAILABLE FOR RANDOM SPECIMEN* GLUCOMETER GLUCOSE- LAB USE [id number] 15:24:00 Test Item Value Reference Range Comments GLUCOMETER (test code=GMG) 148 mg/dL 70-100 CLEANED METERMeter ID: [id number]: 4787 ISAAC YU GLUCOMETER GLUCOSE- LAB USE [id number] 12:43:00 Test Item Value Reference Range Comments GLUCOMETER (test code=GMG) 184 mg/dL 70-100 Meter ID: [id number]: 5683 NICOL SATYA CARDIAC [id number] 12:26:00 Test Item Value Reference Range Comments TROPONIN I (test code=A84) 0.098 ng/mL 0.000-0.045 CKMB (test code=A49) 5.0 ng/mL <=3.6 CPK (test code=32A) 58 IU/L 26-192 [id number] 12:23:00 Test Item Value Reference Range Comments Hb A1C % (test code=HBA) 8.8 % 4.2-6.3 URINALYSIS WITH [id number] 12:15:00 Test Item Value Reference Range Comments [...] NO RBC MORPH (test code=RBCMOR) NORMAL CARDIAC [id number] 05:42:00 Test Item Value Reference Range Comments TROPONIN I (test code=A84) 0.105 ng/mL 0.000-0.045 CKMB (test code=A49) 4.2 ng/mL <=3.6 CPK (test code=32A) 47 IU/L 26-192 CBC with [id number] 05:10:00 Test Item Value Reference Range Comments [...] Lymph Abs (test code=ALYMPH) 1.2 K/cumm 0.5-4.6 [place] Abs (test code=AMONO) 0.4 K/cumm 0.0-1.2 Eos Abs (test code=AEOS) 0.07 K/cumm 0.00-0.74 Baso Abs (test code=ABASO) 0.0 K/cumm 0.00-0.21 RBC Morphology (test Slight Hypochromia code=RBCMRPH) Platelet Est (test code=PLTEST) Adequate Platelets on Smear Glycosylated [id number] 03:33:00 Test Item Value Reference Range Comments HBA1c (test code=HBA1C) 9.5 % 4.8-5.9 Comprehensive Metabolic [id number] 00:02:00 Test Item Value Reference Range Comments [...] race is not provided, and the patient isAfrican-Chinese, multiply by 1.212. If sex is not provided, and thepatient is female, multiply by 0.742. Results for patients <18 years ofage have not been validated by the MDRD study and should be interpretedwith caution.eGFR Result Interpretation:eGFR > or=60 is in the Normal RangeeGFR < 60 may mean kidney diseaseeGFR < 15 may mean kidney failureRanges recommended by the National Kidney Foundation,http://nkdep.nih. gov Lipid [id number] 00:02:00 Test Item Value Reference Range Comments Cholesterol (test 251 mg/dL 0-200 code=CHOL) Triglycerides (test 201 mg/dL 9-200 code=TRIG) HDL (test code=HDL) 44 mg/dL 50-60 Chol/HDL (test 5.7 Ratio 0.0-4.4 code=CHOLPHDL) LDL, Calculated (test 167 0-130 (NOTE)RISK OF HEART code=LDLC) DISEASEPublished by Chinese Heart AssociationAnalyte Optimal Boderline Increased RiskCHOL <200 200-239 >240TRIG <150 150-199 >200HDL Male: >60 <40HDL Female: >60 <50LDL <100 130-159 >160LDL NEAR OPTIMAL IS 100-129 VLDL (test code=VLDL) 40 mg/dL 5-40 LDL/HDL (test code=LDLPHDL) 4
[2018-04-08] MEDS ORDERED: NA CHLORIDE 0.9% 1,000 ML ONE (09:08)
[2018-04-08 09:17] LABS: Absolute Lymphocytes (CBC) 1.6 K/uL (0.7-4.9); Absolute Monocytes 0.5 K/uL (0.1-1.3); Absolute Neutrophil 5.1 K/uL (1.8-8.0); Basophils % 0.9 % (0-1.3); Eosinophils % 2.2 % (0-4.4); Hematocrit 37.6 % (36.0-45.0); Lymphocytes % 21.9 % (15.3-44.8); MCH 29.4 pg (27.0-35.0); MCV 88.4 fL (80-100); MPV 7.9 fL (7.6-11.3); Monocytes % 6.2 % (3.3-12.3); RBC Red Blood Cell Count 4.25 M/uL (3.86-4.86)
--- NOTE | 2018-04-08 09:23 | RAD REPORT ---
EXAM DESCRIPTION: RAD - Chest Single View - 04/08/2018 9:11 am CLINICAL HISTORY: COUGH Chest pain. COMPARISON: Chest Single View dated 02/13/2018; Chest Single View dated 02/12/2018; Chest Single View dated 12/22/2017; Chest Single View dated 12/21/2017 FINDINGS: Portable technique limits examination quality. The lungs are emphysematous without acute infiltrate seen. Hilar fullness is again seen likely relate d to enlarged pulmonary arterial tree. The heart is upper limit normal in size with sternotomy wires present. Multi lead pacer/defibrillator device present.
[2018-04-08 09:34] LABS: Blood Morphology Comment NOT SEEN (NOT SEEN); Platelet Estimate ADEQ
[2018-04-08] MEDS ORDERED: MUPIROCIN 2% OINT 22GM TUBE TOP ONE (09:51)
[2018-04-08 10:22] LABS: Protime INR 0.97
--- NOTE | 2018-04-08 10:22 | EDPHYS ---
Physician Documentation [facility] Name: Karissa Frias Age: 83 yrs Sex: Female : 1935 Arrival Date: 04/08/2018 Time: 08:49 Bed 5 Private MD: ED Physician Skinny Luna HPI: 04/08 08:56 This 83 yrs old Black Female presents to ER via EMS with complaints of Low Blood Sugar, katerina Unresponsive. 08:56 The patient or guardian reports hypoglycemia, that was potentially precipitated by no katerina particular event, with the patient's symptoms witnessed by family. Onset: The symptoms/episode began/occurred just prior to arrival, this morning. Associated signs and symptoms: Pertinent positives: anorexia. Current symptoms: In the emergency department the patient's symptoms have improved, moderately, is more alert. The patient has experienced similar episodes in the past, several times. Historical: - Allergies: 08:59 No Known Allergies; sv - Home Meds: 08:59 furosemide 40 mg Oral tab 1 tab 2 times per day [Active]; digoxin 125 mcg Oral tab 1 sv tab once daily [Active]; Plavix 75 mg Oral tab 1 tab once daily [Active]; nifedipine 90 mg Oral TbER 1 tab once daily [Active]; metformin 500 mg Oral tab 1 tab 2 times per day [Active]; hydralazine 25 mg Oral tab [Active]; mupirocin 2 % topical oint twice a day [Active]; 10:42 carvedilol 12.5 mg Oral tab 1 tab 2 times per day [Active]; aspirin 81 mg Oral TbEC 1 sv tab once daily [Active]; melatonin 3 mg Oral tab nightly [Active]; Nephro-Josh 0.8 mg Oral tab [Active]; - PMHx: 08:59 Anemia; Atrial Fib; CAD; Diabetes - NIDDM; CHF; DYSPHAGIA; High Cholesterol; sv Hypertension; osteomyelitis; Renal Disease; - PSHx: 08:59 pacer/defib; PEG tube; triple bypass; sv - Immunization history:: Adult Immunizations up to date. - Social history:: Smoking status: Patient/guardian denies using tobacco. - Family history:: not pertinent. - Ebola Screening: : No symptoms or risks identified at this time. ROS: 08:56 Constitutional: Negative for fever, chills, and weight loss, Eyes: Negative for injury, katerina pain, redness, and discharge, ENT: Negative for injury, pain, and discharge, Neck: Negative for injury, pain, and swelling, Cardiovascular: Negative for chest pain, palpitations, and edema, Respiratory: Negative for shortness of breath, cough, wheezing, and pleuritic chest pain, Abdomen/GI: Negative for abdominal pain, nausea, vomiting, diarrhea, and constipation, Back: Negative for injury and pain, : Negative for injury, bleeding, discharge, and swelling, MS/Extremity: Negative for injury and deformity, Skin: Negative for injury, rash, and discoloration, Psych: Negative for depression, anxiety, suicide ideation, homicidal ideation, and hallucinations, Allergy/Immunology: Negative for hives, rash, and allergies, Endocrine: Negative for neck swelling, polydipsia, polyuria, polyphagia, and marked weight changes, Hematologic/Lymphatic: Negative for swollen nodes, abnormal bleeding, and unusual bruising. 08:56 Neuro: Positive for altered mental status, weakness. Exam: 08:56 Constitutional: This is a well developed, well nourished patient who is awake, alert, katerina and in no acute distress. Head/Face: Normocephalic, atraumatic. Eyes: Pupils equal round and reactive to light, extra-ocular motions intact. Lids and lashes normal. Conjunctiva and sclera are non-icteric and not injected. Cornea within normal limits. Periorbital areas with no swelling, redness, or edema. ENT: Nares patent. No nasal discharge, no septal abnormalities noted. Tympanic membranes are normal and external auditory canals are clear. Oropharynx with no redness, swelling, or masses, exudates, or evidence of obstruction, uvula midline. Mucous membranes moist. Neck: Trachea midline, no thyromegaly or masses palpated, and no cervical lymphadenopathy. Supple, full range of motion without nuchal rigidity, or vertebral point tenderness. No Meningismus. Chest/axilla: Normal chest wall appearance and motion. Nontender with no deformity. No lesions are appreciated. Cardiovascular: Regular rate and rhythm with a normal S1 and S2. No gallops, murmurs, or rubs. Normal PMI, no JVD. No pulse deficits. Respiratory: Lungs have equal breath sounds bilaterally, clear to auscultation and percussion. No rales, rhonchi or wheezes noted. No increased work of breathing, no retractions or nasal flaring. Abdomen/GI: Soft, non-tender, with normal bowel sounds. No distension or tympany. No guarding or rebound. No evidence of tenderness throughout. Back: No spinal tenderness. No costovertebral tenderness. Full range of motion. Female : Normal external genitalia. Skin: Warm, dry with normal turgor. Normal color with no rashes, no lesions, and no evidence of cellulitis. MS/ Extremity: Pulses equal, no cyanosis. Neurovascular intact. Full, normal range of motion. Psych: Awake, alert, with orientation to person, place and time. Behavior, mood, and affect are within normal limits. 08:56 Neuro: Orientation: is normal, appropriate for stated age, no acute changes, Mentation: is normal, appropriate for stated age, Memory: appropriate for stated age, no acute changes, Cranial nerves: grossly normal, is grossly normal based on the patient's age, no acute changes, Cerebellar function: unable to test, Motor: moves all fours, Sensation: no obvious gross deficits, no acute changes, Gait: not tested. Deep tendon reflexes are 1 (trace) + in the bilateral brachioradialis, bicep, tricep and patellar and Achilles tendons, seizure activity, is not displayed by the patient. Vital Signs: 08:50 BP 164 / 78; Pulse 79; Resp 18; Temp 97.5(TE); Pulse Ox 97% on R/A; Pain 0/10; hb 09:53 BP 160 / 81; Pulse 83; Resp 17; Pulse Ox 96% ; sv 11:00 BP 166 / 79; Pulse 70; Resp 15; Pulse Ox 96% ; sv 11:45 BP 167 / 83; Pulse 70; Resp 14; Pulse Ox 96% ; sv 12:52 BP 161 / 79; Pulse 70; Resp 15; Pulse Ox 96% ; sv MDM: 08:50 Patient medically screened. [facility] 08:59 Data reviewed: vital signs, nurses notes, EMS record, lab test result(s), EKG, [facility] radiologic studies, plain films. 04/08 08:54 Order name: Glucose, Ancillary Testing; Complete Time: 08:55 EDMS 04/08 08:55 Order name: Basic Metabolic Panel; Complete Time: 12:50 katerina 04/08 08:55 Order name: CBC with Diff; Complete Time: 10:18 [facility] 04/08 08:55 Order name: Ckmb; Complete Time: 12:50 [facility] 04/08 08:55 Order name: CPK; Complete Time: 12:50 [facility] 04/08 08:55 Order name: LFT's; Complete Time: 12:50 [facility] 04/08 08:55 Order name: Magnesium; Complete Time: 12:50 [facility] 04/08 08:55 Order name: NT PRO-BNP; Complete Time: 12:50 [facility] 04/08 08:55 Order name: PT-INR; Complete Time: 10:55 [facility] 04/08 08:55 Order name: Ptt, Activated; Complete Time: 10:55 [facility] 04/08 08:55 Order name: Troponin (emerg Dept Use Only); Complete Time: 12:50 [facility] 04/08 08:55 Order name: Urine Culture [facility] 04/08 08:55 Order name: Digoxin; Complete Time: 12:50 [facility] 04/08 09:35 Order name: Manual Differential; Complete Time: 10:18 EDKS 04/08 08:55 Order name: XRAY Chest (1 view); Complete Time: 10:18 [facility] 04/08 08:55 Order name: EKG; Complete Time: 08:56 [facility] 04/08 08:55 Order name: Cardiac monitoring; Complete Time: 09:48 [facility] 04/08 08:55 Order name: EKG - Nurse/Tech; Complete Time: 09:07 [facility] 04/08 08:55 Order name: IV Saline Lock; Complete Time: 09:01 [facility] 04/08 08:55 Order name: Labs collected and sent; Complete Time: 09:21 [facility] 04/08 08:55 Order name: O2 Per Protocol; Complete Time: 09:02 [facility] 04/08 08:55 Order name: O2 Sat Monitoring; Complete Time: 09:02 [facility] 04/08 09:58 Order name: Glucose, Ancillary Testing; Complete Time: 10:18 EDMS 04/08 10:26 Order name: CONS Physician Consult; Complete Time: 10:32 EDMS 04/08 13:26 Order name: Urine Dipstick--Ancillary (enter results) eb 04/08 09:00 Order name: Wound dressing; Complete Time: 09:47 [facility] 04/08 09:34 Order name: Labs - recollect needed; Complete Time: 10:04 eb Administered Medications: 08:55 CANCELLED (Duplicate Order): D5-1/2 NS 1000 ml IV at 75 ml/hr continuous katerina 09:21 Drug: NS 0.9% 500 ml Route: IV; Rate: bolus; Site: left forearm; sv 09:47 Follow up: Response: No adverse reaction; IV Status: Completed infusion; IV Intake: sv 500ml 10:04 Drug: NS 0.9% 1000 ml Route: IV; Rate: 75 ml/hr; Site: left forearm; sv 13:00 Follow up: Response: No adverse reaction; IV Status: Infusion continued upon admission sv 13:11 CANCELLED (Duplicate Order): Kayexalate 30 grams PO once sv 13:14 Drug: Kayexalate 15 grams Route: PO; sv 13:14 Follow up: Response: No adverse reaction sv Point of Care Testing: Blood Glucose: 08:45 Blood Glucose: 228 mg/dL; sv 10:00 Blood Glucose: 143 mg/dL; sv Ranges: Critical Glucose Levels:Adult <50 mg/dl or >400 mg/dl <40 mg/dl or >180 mg/dl Disposition: 04/08/18 10:21 Hospitalization ordered by Cathy oFy for Observation. Preliminary diagnosis are Altered mental status, unspecified, Weakness, Osteomyelitis - bilateral feet, Type 2 diabetes mellitus, Hyperkalemia. - Bed requested for Telemetry/MedSurg (observation). - Status is Observation. sv - Condition is Fair. - Problem is new. - Symptoms have improved. UTI on Admission? No Signatures: Dispatcher [employer] EDShala Edward RN RN sv Anderson, Corey, MD MD cha Botello, Elizabeth eb Corrections: (The following items were deleted from the chart) 08:55 08:55 D5-1/2 NS 1000 ml IV at 75 ml/hr continuous ordered. katerina [facility] 12:31 10:21 Hospitalization Ordered by Cathy Foy MD for Observation. Preliminary eb diagnosis is Altered mental status, unspecified; Weakness; Osteomyelitis - bilateral feet; Type 2 diabetes mellitus. Bed requested for Telemetry/MedSurg (observation). Status is Observation. Condition is Fair. Problem is new. Symptoms have improved. UTI on Admission? No. katerina 12:51 12:31 04/08/2018 10:21 Hospitalization Ordered by Cathy Foy MD for Observation. katerina Preliminary diagnosis is Altered mental status, unspecified; Weakness; Osteomyelitis - bilateral feet; Type 2 diabetes mellitus. Bed requested for Telemetry/MedSurg (observation). Status is Observation. Condition is Fair. Problem is new. Symptoms have improved. UTI on Admission? No. eb 13:11 12:51 Kayexalate 30 grams PO once ordered. katerina sv 13:27 12:51 04/08/2018 10:21 Hospitalization Ordered by Cathy Foy MD for Observation. sv Preliminary diagnosis is Altered mental status, unspecified; Weakness; Osteomyelitis - bilateral feet; Type 2 diabetes mellitus; Hyperkalemia. Bed requested for Telemetry/MedSurg (observation). Status is Observation. Condition is Fair. Problem is new. Symptoms have improved. UTI on Admission? No. katerina
--- NOTE | 2018-04-08 10:22 | ER ---
Nurse's Notes [facility] Name: Karissa Frias Age: 83 yrs Sex: Female : 1935 Arrival Date: 04/08/2018 Time: 08:49 Bed 5 Private MD: Diagnosis: Altered mental status, unspecified;Weakness;Osteomyelitis-bilateral feet;Type 2 diabetes mellitus;Hyperkalemia Presentation: 04/08 08:40 Presenting complaint: EMS states: pt was unresponsive per daughter. Daughter stated sv that her BS was 20 and placed sugar under her tongue. On EMS arrival BS-40, GCS-11, 20G L FA Dextrose 30 g given in D10 300 mls. BS-210. Pt is now A\T\O x4, GCS-15. Transition of care: patient was not received from another setting of care. Onset of symptoms was April 08, 2018. Risk Assessment: Do you want to hurt yourself or someone else? Patient reports no desire to harm self or others. Initial Sepsis Screen: Does the patient meet any 2 criteria? No. Patient's initial sepsis screen is negative. Does the patient have a suspected source of infection? No. Patient's initial sepsis screen is negative. Care prior to arrival: IV initiated. 20 GA, in the left forearm, Glucose check: 210. 08:40 Method Of Arrival: EMS: [facility] sv 08:40 Acuity: LAURO 3 sv Triage Assessment: 08:40 General: Appears in no apparent distress. comfortable, slender, malnourished, Behavior sv is calm, cooperative, appropriate for age. Pain: Denies pain. EENT: No signs and/or symptoms were reported regarding the EENT system. Neuro: Level of Consciousness is awake, alert, obeys commands, Oriented to person, place, situation, Moves all extremities. Speech is normal. Cardiovascular: Patient's skin is warm and dry. Respiratory: Respiratory effort is even, unlabored, Respiratory pattern is regular, symmetrical. GI: No signs and/or symptoms were reported involving the gastrointestinal system. : Gamble in place to gravity drainage Urine is cloudy. Derm: Skin is normal. Musculoskeletal: No signs and/or symptoms reported regarding the musculoskeletal system. Historical: - Allergies: 08:59 No Known Allergies; sv - Home Meds: 08:59 furosemide 40 mg Oral tab 1 tab 2 times per day [Active]; digoxin 125 mcg Oral tab 1 sv tab once daily [Active]; Plavix 75 mg Oral tab 1 tab once daily [Active]; nifedipine 90 mg Oral TbER 1 tab once daily [Active]; metformin 500 mg Oral tab 1 tab 2 times per day [Active]; hydralazine 25 mg Oral tab [Active]; mupirocin 2 % topical oint twice a day [Active]; 10:42 carvedilol 12.5 mg Oral tab 1 tab 2 times per day [Active]; aspirin 81 mg Oral TbEC 1 sv tab once daily [Active]; melatonin 3 mg Oral tab nightly [Active]; Nephro-Josh 0.8 mg Oral tab [Active]; - PMHx: 08:59 Anemia; Atrial Fib; CAD; Diabetes - NIDDM; CHF; DYSPHAGIA; High Cholesterol; sv Hypertension; osteomyelitis; Renal Disease; - PSHx: 08:59 pacer/defib; PEG tube; triple bypass; sv - Immunization history:: Adult Immunizations up to date. - Social history:: Smoking status: Patient/guardian denies using tobacco. - Family history:: not pertinent. - Ebola Screening: : No symptoms or risks identified at this time. Screenin:51 Abuse screen: Denies threats or abuse. Denies injuries from another. Nutritional hb screening: No deficits noted. Tuberculosis screening: No symptoms or risk factors identified. Fall Risk Total Turner Fall Scale indicates High Risk Score (45 or more points). Fall prevention measures have been instituted. Side Rails Up X 2 Frequent Obs/Assessments Occuring Family Present and informed to notify staff if the need to leave the bedside As available patient and family educated on Fall Prevention Program and Strategies. Assessment: 09:30 Reassessment: Patient appears in no apparent distress at this time. No changes from sv previously documented assessment. Patient and/or family updated on plan of care and expected duration. Pain level reassessed. 09:48 Reassessment: Pt's old gamble removed and replaced with a a new one. Daughter stated it sv was due to be changed this week. 13:10 Reassessment: Patient appears in no apparent distress at this time. No changes from sv previously documented assessment. Patient and/or family updated on plan of care and expected duration. Pain level reassessed. Vital Signs: 08:50 BP 164 / 78; Pulse 79; Resp 18; Temp 97.5(TE); Pulse Ox 97% on R/A; Pain 0/10; hb 09:53 BP 160 / 81; Pulse 83; Resp 17; Pulse Ox 96% ; sv 11:00 BP 166 / 79; Pulse 70; Resp 15; Pulse Ox 96% ; sv 11:45 BP 167 / 83; Pulse 70; Resp 14; Pulse Ox 96% ; sv 12:52 BP 161 / 79; Pulse 70; Resp 15; Pulse Ox 96% ; sv ED Course: 08:40 Maintain EMS IV. Dressing intact. Site clean \T\ dry. Gauge \T\ site: 20G L FA. sv 08:45 Pulse ox on. NIBP on. sv 08:49 Patient arrived in ED. sv 08:49 Shala Johnston RN is Primary Nurse. sv 08:50 Skinny Luna MD is Attending Physician. katerina 08:51 Arm band placed on right wrist. hb 08:54 Triage completed. sv 09:00 Patient has correct armband on for positive identification. Bed in low position. Call sv light in reach. Side rails up X2. Adult w/ patient. 09:01 Door closed. Warm blanket given. Head of bed elevated. sv 09:08 X-ray completed. Portable x-ray completed in exam room. Patient tolerated procedure jb2 well. 09:09 XRAY Chest (1 view) In Process Unspecified. EDMS 09:10 EKG done, by information technology advisor. reviewed by Skinny Luna MD. at1 09:48 Gamble cath inserted, using sterile technique, 16 Fr., by ne, balloon inflated, to sv gravity drainage, returned cloudy urine. Patient tolerated poorly. 10:20 Cathy Foy MD is Hospitalizing Provider. katerina 10:43 Awaiting bed assignment. sv 13:27 No provider procedures requiring assistance completed. Patient admitted, IV remains in sv place. intact. Administered Medications: 08:55 CANCELLED (Duplicate Order): D5-1/2 NS 1000 ml IV at 75 ml/hr continuous katerina 09:21 Drug: NS 0.9% 500 ml Route: IV; Rate: bolus; Site: left forearm; sv 09:47 Follow up: Response: No adverse reaction; IV Status: Completed infusion; IV Intake: sv 500ml 10:04 Drug: NS 0.9% 1000 ml Route: IV; Rate: 75 ml/hr; Site: left forearm; sv 13:00 Follow up: Response: No adverse reaction; IV Status: Infusion continued upon admission sv 13:11 CANCELLED (Duplicate Order): Kayexalate 30 grams PO once sv 13:14 Drug: Kayexalate 15 grams Route: PO; sv 13:14 Follow up: Response: No adverse reaction sv Point of Care Testing: Blood Glucose: 08:45 Blood Glucose: 228 mg/dL; sv 10:00 Blood Glucose: 143 mg/dL; sv Ranges: Intake: 09:47 IV: 500ml; Total: 500ml. sv Outcome: 10:21 Decision to Hospitalize by Provider. katerina 13:10 Admitted to Tele accompanied by tech, family with patient, via stretcher, room 205, sv with chart, Report called to Efra FRANCO 13:10 Condition: stable 13:10 Instructed on the need for admit. 13:27 Patient left the ED. sv Signatures: Dispatcher [employer] Shala Velazquez, RN RN Skinny Luna MD MD cha Buechter, Jesse jb2 Marika Adams, geothermal production manager EKG Tat1 Naina Hendrix, RN RN hb
[2018-04-08 11:51] LABS: AST/SGOT 19 U/L (15-37); Albumin 2.3 g/dL (3.4-5.0); Alkaline Phosphatase 85 U/L (45-117); BUN Blood Urea Nitrogen 61 mg/dL (7-18); Bicarbonate 18 mmol/L (21-32); Bilirubin Direct < 0.1 mg/dL (0-0.2); Bilirubin Total 0.2 mg/dL (0.2-1.0); CKMB Creatine Kinase MB 3.9 ng/mL (0.3-3.6); Creatine Phosphokinase 36 U/L (26-192); Glucose Level 108 mg/dL (74-106); Magnesium 1.9 mg/dL (1.8-2.4); NT PRO-BNP 38919 pg/mL (<450); Potassium 5.3 mmol/L (3.5-5.1); Sodium Level 130 mmol/L (136-145); Troponin (Emerg Dept Use Only) 0.15 ng/mL (0.0-0.045)
[2018-04-08 11:52] LABS: ALT/SGPT < 6 U/L (12-78)
--- NOTE | 2018-04-08 12:00 | P.HP ---
Certification for Inpatient Patient admitted to: Observation With expected LOS: <2 Midnights Patient will require the following post-hospital care: None Practitioner: I am a practitioner with admitting privileges, knowledge of patient current condition, hospital course, and medical plan of care. Services: Services provided to patient in accordance with Admission requirements found in Title 42 Section 412.3 of the Code of Federal Regulations Patient History Date of Service: 04/08/18 Primary Care Provider: Dr Owen Reason for admission: Hypoglcemia History of Present Illness: This is a 83-year-old female with significant past medical history who presented to the ED after having some hypoglycemia at the house. Patient's daughter at bedside states that her mom had blood sugar of 20 this morning and was having decreased consciousness she decided to open her mouth and give her some sugar under her tongue and her blood sugar luis carlos to 40. However patient was still altered and thus daughter called the EMS and they brought over to the ER here. On the way to the ER EMS did give patient a 50 and patient's blood sugar did go up to 200 post infusion. Patient in the ER became more alert and oriented however did appear to be weak and lethargic. Patient has been having some decreasing appetite lately which might be the cause of her hyperglycemia. No new changes at this time. Patient's daughter at bedside denies having any fever chills nausea vomiting diarrhea chest pain shortness of breath or any other associated symptoms. The patient was initially referred for hospice however patient is currently not on hospice and hospice has been revoked since past month month. Allergies No Known Allergies Allergy (Verified 08/27/17 00:20) Home Medications: Carvedilol [Coreg] 12.5 mg FT BID 10/22/16 Clopidogrel Bisulfate [Plavix*] 75 mg FT DAILY 10/22/16 Digoxin [Lanoxin] 0.125 mg FT DAILY 10/22/16 Furosemide [Lasix*] 40 mg FT DAILY 10/22/16 Aspirin 1 tab FT DAILY 08/27/17 Acetaminophen [Tylenol] 2 tab FT Q4HP PRN 02/12/18 Ascorbic Acid [C-1000] 500 mg FT DAILY 02/12/18 Cholestyramine (with Sugar) [Questran Packet] 4 gm FT BID 02/12/18 Epoetin Luigi [Epogen] 4,000 unit SQ SEECOM 02/12/18 Folic Acid/Vitamin B Comp W-C [Nephro-Josh Tablet] 0.8 mg FT DAILY 02/12/18 Hydrochlorothiazide 25 mg FT DAILY 02/12/18 Insulin Aspart [Novolog] See Protocol SQ 02/12/18 Melatonin 3 mg FT BEDTIME 02/12/18 Zinc Sulfate [Zinc Sulfate*] 220 mg FT DAILY 02/12/18 Hydralazine [Apresoline*] 25 mg PO TID #90 tab 02/14/18 Levofloxacin [Levaquin] 500 mg PO DAILY #10 tablet 02/14/18 - Past Medical/Surgical History Diabetic: Yes -: Atrial fibrillation, NO chronic anticoagulation -: CAD -: HTN -: DM Type 2 -: Anemia of Chronic disease -: Chronic Renal Disease -: PVD -: DM Foot ulcer -: Diabetic neuropathy -: Malnutrition -: Hx of Pacemaker/Defibrillator -: PEG tube -: AICD placement -: PEG tube placement Psychosocial/ Personal History: [facility] placement - Family History Father -: Diabetes Mother -: Diabetes - Social History Alcohol use: No CD- Drugs: No Caffeine use: Yes Review of Systems 10-point ROS is otherwise unremarkable Physical Examination - Physical Exam General: Alert, Oriented x2, Demented HEENT: Atraumatic, PERRLA, EOMI Neck: Supple, 2+ carotid pulse no bruit, No LAD, Without JVD or thyroid abnormality Respiratory: Clear to auscultation bilaterally, Normal air movement Cardiovascular: Regular rate/rhythm, Normal S1 S2 Gastrointestinal: Normal bowel sounds, No tenderness Musculoskeletal: No tenderness Integumentary: Tenderness/swelling, Erythema, Warmth Neurological: Normal speech, Normal tone, Sensation intact, Abnormal strength Lymphatics: No axilla or inguinal lymphadenopathy - Studies Laboratory Data (last 24 hrs) 04/08/18 09:56: PT 11.4, INR 0.97, APTT 31.1 04/08/18 09:03: WBC 7.4, Hgb 12.5, Hct 37.6, Plt Count 206 04/08/18 09:03: Sodium 130 L, Potassium 5.3 H, BUN 61 H, Creatinine 4.20 H, Glucose 108 H, Magnesium 1.9 D, Total Bilirubin 0.2, AST 19, ALT < 6 L, Alkaline Phosphatase 85 Assessment and Plan - Problems (Diagnosis) (1) Hypoglycemia Current Visit: Yes Status: Acute Plan: Hypoglycemia now resolved. Pt however still mildly lethargic -Patient with Blood Sugar of 20 at the house today. -Had not had anything to eat or drink since past couple of days. PEG tube has been in place and feeding has been okay however concern for decreased appetite. -Patient's daughter at bedside who stated that she gave her mom some sugar under the tongue and her blood sugar got upto 40 however she was altered thus EMS decided to bring her in. -While here in the ER patient's blood sugar has been over 200 patient is more alert and oriented however does seem to be lethargic. -The patient thus need to be monitored overnight for 24-48 hr and discharged in the morning. (2) CHF (congestive heart failure) Onset Date: 12/13/17 Current Visit: No Status: Chronic Qualifiers: Heart failure type: systolic Heart failure chronicity: acute on chronic Qualified Code(s): I50.23 - Acute on chronic systolic (congestive) heart failure (3) Chronic kidney disease (CKD) Current Visit: No Status: Chronic Qualifiers: Chronic kidney disease stage: stage 3 (moderate) Qualified Code(s): N18.3 - Chronic kidney disease, stage 3 (moderate) (4) Diabetes Onset Date: 08/27/17 Current Visit: No Status: Chronic Qualifiers: Diabetes mellitus type: type 2 Diabetes mellitus prison insulin use: without gmat instructor use Diabetes mellitus complication status: with unspecified complications Qualified Code(s): E11.8 - Type 2 diabetes mellitus with unspecified complications (5) Osteomyelitis Onset Date: 12/13/17 Current Visit: No Status: Chronic Qualifiers: Osteomyelitis type: unspecified type Osteomyelitis location: foot Laterality: right Qualified Code(s): M86.9 - Osteomyelitis, unspecified (6) Pressure ulcer of coccygeal region, stage 3 Current Visit: No Status: Chronic (7) 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 Current Visit: No Status: Chronic (8) Stage III pressure ulcer of right heel Current Visit: No Status: Chronic (9) Atrial fibrillation Onset Date: 12/13/17 Current Visit: No Status: Chronic Qualifiers: Atrial fibrillation type: chronic (10) CAD (coronary artery disease) Onset Date: 08/27/17 Current Visit: No Status: Chronic Qualifiers: Coronary Disease-Associated Artery/Lesion type: unspecified vessel or lesion type (11) History of automatic internal cardiac defibrillator (AICD) Current Visit: No Status: Chronic (12) Hypertension Onset Date: 08/27/17 Current Visit: No Status: Chronic Qualifiers: Hypertension type: essential hypertension (13) Malnutrition Onset Date: 12/13/17 Current Visit: No Status: Chronic Qualifiers: Malnutrition type: protein-calorie malnutrition Protein-calorie malnutrition severity: severe Qualified Code(s): E43 - Unspecified severe protein-calorie malnutrition (14) Status post insertion of percutaneous endoscopic gastrostomy (PEG) tube Onset Date: 02/13/18 Current Visit: No Status: Chronic (15) Dementia Onset Date: 08/27/17 Current Visit: No Status: Chronic Qualifiers: Discharge Plan: Home Plan to discharge in: 48 Hours - Advance Directives Does patient have a Living Will: Yes Does patient have a Durable POA for Healthcare: Yes - Code Status/Comfort Care Code Status Assessed: Yes Critical Care: No
--- NOTE | 2018-04-08 12:19 | EKG ---
Test Date: 2018-04-08 Test Time: 09:10:25 Clinical Admissions Manager: KAYE MEASUREMENT RESULTS: Intervals: Rate: 85 MT: 216 QRSD: 148 QT: 398 QTc: 473 [place]: P: MT: 216 QRS: -74 T: 105 INTERPRETIVE STATEMENTS: Demand pacemaker, interpretation is based on intrinsic rhythm Sinus rhythm with 1st degree AV block with fusion complexes Left axis deviation Right bundle branch block Left ventricular hypertrophy with repolarization abnormality Cannot rule out Septal infarct, age undetermined Abnormal ECG Compared to ECG 02/12/2018 09:56:21 Fusion complex(es) now present First degree AV block now present Electronically Signed On 04-08-18 12:18:15 CDT by Arik Roa
[2018-04-08] MEDS ORDERED: SOD POLYSTYREN SUL 15 GM/60 ML UCUP ONE (12:59)
[2018-04-08] MEDS ORDERED: ACETAMINOPHEN 500 MG TAB PO PRN (13:36)
[2018-04-08] MEDS: INSULIN -REGULAR HUMAN 50 UNIT/0.5 ML ML SQ SCH ×3 (13:36→21:00)
[2018-04-08] MEDS ORDERED: ONDANSETRON 4 MG/2 ML VIAL IV PRN (13:36)
[2018-04-08] MEDS: ENOXAPARIN 30 MG/0.3 ML SQ SCH (17:00)
[2018-04-09] MEDS ORDERED: HYDRALAZINE HCL 20 MG/ML VIAL IV PRN (00:27)
[2018-04-09 05:13] LABS: Absolute Lymphocytes (CBC) 1.5 K/uL (0.7-4.9); Absolute Monocytes 0.6 K/uL (0.1-1.3); Absolute Neutrophil 5.9 K/uL (1.8-8.0); Basophils % 0.7 % (0-1.3); Eosinophils % 3.5 % (0-4.4); Hematocrit 41.9 % (36.0-45.0); Lymphocytes % 17.6 % (15.3-44.8); MCH 29.2 pg (27.0-35.0); MCV 89.1 fL (80-100); MPV 8.1 fL (7.6-11.3); Monocytes % 6.8 % (3.3-12.3)
[2018-04-09 05:40] LABS: Albumin 2.4 g/dL (3.4-5.0); Bilirubin Total 0.2 mg/dL (0.2-1.0); Potassium 5.2 mmol/L (3.5-5.1); Protein, Total 7.3 g/dL (6.4-8.2)
[2018-04-09] MEDS ORDERED: GLUCAGON 1 MG/VIAL IM PRN (05:46)
[2018-04-09] MEDS ORDERED: D50W 25 GM/50 ML SYRINGE IV PRN (05:47)
[2018-04-09 06:50] LABS: Urine Appearance CLOUDY; Urine Bilirubin NEGATIVE (NEG); Urine Blood NEGATIVE (NEG); Urine Color YELLOW; Urine Glucose NEGATIVE (NEG); Urine Protein TRACE (NEG); Urine Specific Gravity 1.015 (1.005-1.030); Urine Urobilinogen 0.2 mg/dL (0.2-1.0)
[2018-04-09 06:51] LABS: Urine Microscopic Reflex ORDER UMIC
[2018-04-09 07:05] LABS: Urine Bacteria >50 /HPF (<20); Urine Culture Reflex Order REFLEXED; Urine RBC <5 /HPF (NONE SEEN)
[2018-04-09] MEDS: INSULIN -REGULAR HUMAN 50 UNIT/0.5 ML ML SQ SCH ×4 (07:28→23:52)
[2018-04-09] MEDS ORDERED: COLLAGENASE 30 GM OINTMENT TOP SCH (09:00)
[2018-04-09] MEDS ORDERED: MUPIROCIN 2% OINT 22GM TUBE TOP SCH (09:00)
[2018-04-09] MEDS: D5 0.9 NS 1,000 ML IV SCH ×3 (09:00→23:50)
[2018-04-09] MEDS ORDERED: Levofloxacin500mg IV 500 MG/100 ML BAG IV ONE (11:00)
--- NOTE | 2018-04-09 12:25 | P.PN ---
Subjective Date of Service: 04/09/18 Primary Care Provider: Dr Owen Chief Complaint: Hypoglcemia Patient seen and examined at bedside with RN today that chart reviewed. Case discussed with general surgery. -overnight no complaints to offer. Patient remained alert and oriented x3. This morning patient has complaints to offer is well. Review of Systems 10-point ROS is otherwise unremarkable Physical Examination - Vital Signs Temperature: 99.1 F Blood Pressure: 114/63 Pulse: 94 Respirations: 18 Pulse Ox (%): 97 - Physical Exam General: Alert, In no apparent distress HEENT: Atraumatic, PERRLA, EOMI Neck: Supple, JVD not distended Respiratory: Clear to auscultation bilaterally, Normal air movement Cardiovascular: Regular rate/rhythm, Normal S1 S2 Gastrointestinal: Normal bowel sounds, No tenderness Musculoskeletal: Erythema, Warmth Integumentary: No rashes Neurological: Normal speech, Normal tone, Normal affect Lymphatics: No axilla or inguinal lymphadenopathy - Studies Medications List Reviewed: Yes Assessment And Plan - Current Problems (Diagnosis) (1) UTI (urinary tract infection) Current Visit: Yes Status: Acute Plan: UA concerning for UTI. -urine culture positive for 4+ gram-negative rods. -started on IV levaquin at this time. Qualifiers: Urinary tract infection type: acute cystitis (2) Hypoglycemia Onset Date: 04/09/18 Current Visit: Yes Status: Acute Plan: Now resolved. Will continue with tube feedings here in the hospital. Will get dietary consult for appropriate feeding recommendations at this time. (3) CHF (congestive heart failure) Onset Date: 12/13/17 Current Visit: No Status: Chronic Qualifiers: Heart failure type: systolic Heart failure chronicity: acute on chronic Qualified Code(s): I50.23 - Acute on chronic systolic (congestive) heart failure (4) Chronic kidney disease (CKD) Current Visit: No Status: Chronic Qualifiers: Chronic kidney disease stage: stage 3 (moderate) Qualified Code(s): N18.3 - Chronic kidney disease, stage 3 (moderate) (5) Diabetes Onset Date: 08/27/17 Current Visit: No Status: Chronic Qualifiers: Diabetes mellitus type: type 2 Diabetes mellitus residential insulin use: without termite control service representative use Diabetes mellitus complication status: with unspecified complications Qualified Code(s): E11.8 - Type 2 diabetes mellitus with unspecified complications (6) Osteomyelitis Onset Date: 12/13/17 Current Visit: No Status: Chronic Qualifiers: Osteomyelitis type: unspecified type Osteomyelitis location: foot Laterality: right Qualified Code(s): M86.9 - Osteomyelitis, unspecified (7) Pressure ulcer of coccygeal region, stage 3 Onset Date: 04/09/18 Current Visit: Yes Status: Chronic (8) 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 Onset Date: 04/09/18 Current Visit: Yes Status: Chronic (9) Stage III pressure ulcer of right heel Onset Date: 04/09/18 Current Visit: Yes Status: Chronic (10) Atrial fibrillation Onset Date: 12/13/17 Current Visit: No Status: Chronic Qualifiers: Atrial fibrillation type: chronic (11) CAD (coronary artery disease) Onset Date: 08/27/17 Current Visit: No Status: Chronic Qualifiers: Coronary Disease-Associated Artery/Lesion type: unspecified vessel or lesion type (12) History of automatic internal cardiac defibrillator (AICD) Current Visit: No Status: Chronic (13) Hypertension Onset Date: 08/27/17 Current Visit: No Status: Chronic Qualifiers: Hypertension type: essential hypertension (14) Malnutrition Onset Date: 12/13/17 Current Visit: No Status: Chronic Qualifiers: Malnutrition type: protein-calorie malnutrition Protein-calorie malnutrition severity: severe Qualified Code(s): E43 - Unspecified severe protein-calorie malnutrition (15) Status post insertion of percutaneous endoscopic gastrostomy (PEG) tube Onset Date: 02/13/18 Current Visit: No Status: Chronic (16) Dementia Onset Date: 08/27/17 Current Visit: No Status: Chronic Qualifiers:
--- NOTE | 2018-04-09 12:41 | CON ---
Date of Consultation: 04/09/2018 Brief History Of Present Illness: The patient is an 83-year-old female with significant past medical history, who presented to the ER after having some hypoglycemia at the house. She was admitted for this problem and she has had a chronic infection of bilateral lower feet due to immobility and diabet ic foot wounds. 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 She wou ld be prohibitively high risk for any surgical intervention and as such, they do not submit to any mercado rgical intervention at this time. They simply want a recommendation with respect to wound care. The refore, I was consulted for this reason. She has a longstanding history of bilateral foot wounds on the right foot, it is on the lateral aspect by their description and on the left heel. These have be en chronically infected with osteomyelitis for a long period of time, and they have been treating wit h antibiotics as well as local wound care. Past Medical History: Atrial fibrillation, coronary disease, hypertension, diabetes, anemia of chron ic disease, chronic renal insufficiency, peripheral vascular disease, diabetic foot ulcer, diabetic n europathy, malnutrition. Past Surgical History: Includes pacemaker defibrillator, PEG placement, AICD. Allergies: NO KNOWN DRUG ALLERGIES. Medications: Include Coreg, Plavix, Lanoxin, Lasix, aspirin, Tylenol, ascorbic acid, Questran, Epoge n, folic acid, B12, Nephro-Josh, hydrochlorothiazide, NovoLog, melatonin, zinc, Apresoline, Levaquin. Social History: Reviewed. Noncontributory. Family History: Reviewed, noncontributory. Review of Systems: A 10-point review of systems other than HPI, denies. Physical Examination: General: She is awake and oriented x2. She has dementia. HEENT: She is atraumatic. PERRLA. EOMI. Neck: Supple. No bruit. Respiratory: Clear to auscultation bilaterally. Cardiovascular: Regular rate and rhythm currently. GI: Soft, nontender. Focused examination of the lower extremity shows on the lateral aspect of the right foot extending from the metatarsal all the way to approximately 6 cm long area on the lateral a spect of the foot with necrotic tissue evident. There is no pus emanating from this, but there is ob vious necrotic tissue evident here. It is approximately 6 cm x 2 cm area. On the contralateral foot , there is a small, well-demarcated, quarter-sized healed, dry ulcer and eschar. Laboratory Data: Reveals a white blood count 8.3, hemoglobin 13.7, hematocrit 41.9, platelet count 2 77. Her PT 11.4, INR 0.97, PTT 31.3. Sodium 133, potassium 5.2, chloride 105, carbon dioxide 20, BU N 57, creatinine 4.1, glucose is 66, calcium 9.2, ALT is 7, AST is 21. She had imaging performed on a prior admission, which shows acute on chronic osteomyelitis of the foot, specifically from 03/20/20 18, which showed a lateral foot soft tissue wound with the adjacent 5th metatarsal showing bone loss of the distal shaft and head. There was bone loss involving the base of the 5th proximal phalanx. T he provided history indicates no prior foot surgery. The combined support a mixed acute and chronic osteomyelitis. Assessment And Plan: This is an 83-year-old female with multiple medical problems, who comes in with osteomyelitis, apparently chronic, and multiple wounds of the bilateral feet as described above. 1.Antibiotic coverage. 2.Monitor renal function with antibiotics. 3.Local wound care will be initiated with Santyl damp-to-dry dressing changes and local debridement going forward in a chronic fashion. I have explained the risks, benefits, and alternatives of above stated plan to the patient's medical power of real estate associate attorney. She agrees to proceed as indicated. ISABELA Voice ID: [id number] Report ID: [id number]
[2018-04-09] MEDS: NEPRO 1,000 ML BOT FT SCH ×2 (17:00→23:52)
--- NOTE | 2018-04-09 17:11 | CON ---
History Of Present Illness: This is an 83-year-old female, known to me from previous admission for o steomyelitis and decubitus ulcer. The patient is currently coming in with low sugar of 20s, not able to give much information. Most of the information was obtained through medical records and staff. The patient has wounds to her right foot and left heel. Past Medical History: Includes atrial fibrillation, coronary artery disease, hypertension, diabetes mellitus, anemia of chronic disease, peripheral vascular disease, diabetic foot ulcer, diabetic neuro alaina, malnutrition, PEG tube placement. Social History: Nonsmoker, nondrinker. Lives at home. Family History: Noncontributory. Medications: Collagenase, Lovenox, glucagon, Apresoline, Novolin, Levaquin, Zofran. Review of Systems: Unable to obtain. Physical Examination: General: This is an 83-year-old female, lying in bed. Vital Signs: Temperature T-max 99.4, pulse is 94, respirations 18, blood pressure 114/63. HEENT: Unremarkable. Neck: Supple. Lungs: Basal crackles. Heart: S1, S2. Regular. Abdomen: Soft, nontender. Bowel sounds positive. Extremities: Right foot lateral aspect 8 x 5 cm with necrotic tissue present and foul smell. Betwee n right 4th and 5th toes, another area of ulceration noted with foul smell. Left heel wound 4 x 4 cm with eschar tissue present covering half of the wound. No foul smell. Borders are well demarcated. Laboratory Data: Lab data shows WBC 8.3, hemoglobin 13.7, platelets are 277. Chemistry shows sodium 133, potassium 5.2, chloride 105, bicarb 20, BUN 57, creatinine 4.1, glucose is 66. Repeat sugars w ere 85. BUN is 0.2. Albumin is 2.4. Assessment And Plan: An 83-year-old female with multiple medical problems with diabetic foot ulcer a nd pressure ulcer to the right lateral aspect of the foot. Recommend to clean it with Dakin solution and then apply Medihoney with alginate. Right foot ulcer between 4th and 5th toes, apply Medihoney after cleaning with Dakin's. Left foot heel ulcer, unstageable wound. Offloading and apply Medihone y with foam. Continue Levaquin. Get cultures from the right lateral foot. We will follow the patie nt closely. Thank you Dr. Cathy Foy for consult. JAS/JOSHUA Voice ID: [id number] Report ID: [id number]
[2018-04-09] MEDS: ENOXAPARIN 30 MG/0.3 ML SQ SCH (18:07)
[2018-04-09] MEDS ORDERED: MUPIROCIN TOP SCH (21:00)
[2018-04-09] MEDS ORDERED: FUROSEMIDE 40 MG TABLET PO SCH (21:00)
[2018-04-09] MEDS: CARVEDILOL 12.5 MG TAB PO SCH (21:00)
[2018-04-09] MEDS: HYDRALAZINE HCL 25 MG TABLET PO SCH (21:00)
[2018-04-09] MEDS: COLLAGENASE 30 GM OINTMENT TOP SCH (21:00)
--- NOTE | 2018-04-09 22:04 | P.CNS ---
Date of Consult: 04/09/18 Primary Care Provider: Dr Owen Chief Complaint: Hypoglcemia History of Present Illness: 83 yo BF malnutrition, CKD presented to the ER after an episode of severe hypoglycemia with associated AMS on the morning of admission. She responded to Dextrose therapy. She has known CKD IV. Limited IH/ ROS from the patient due to dementia. Case discussed with her daughter. This is a 83-year-old female with significant past medical history who presented to the ED after having some hypoglycemia at the house. Patient's daughter at bedside states that her mom had blood sugar of 20 this morning and was having decreased consciousness she decided to open her mouth and give her some sugar under her tongue and her blood sugar luis carlos to 40. However patient was still altered and thus daughter called the EMS and they brought over to the ER here. On the way to the ER EMS did give patient a 50 and patient's blood sugar did go up to 200 post infusion. Patient in the ER became more alert and oriented however did appear to be weak and lethargic. Patient has been having some decreasing appetite lately which might be the cause of her hyperglycemia. No new changes at this time. Patient's daughter at bedside denies having any fever chills nausea vomiting diarrhea chest pain shortness of breath or any other associated symptoms. 08:56 This 83 yrs old Black Female presents to ER via EMS with complaints of Low Blood Sugar, katerina Unresponsive. 08:56 The patient or guardian reports hypoglycemia, that was potentially precipitated by no katerina particular event, with the patient's symptoms witnessed by family. Onset: The symptoms/episode began/occurred just prior to arrival, this morning. Associated signs and symptoms: Pertinent positives: anorexia. Current symptoms: In the emergency department the patient's symptoms have improved, moderately, is more alert. The patient has experienced similar episodes in the past, several times. Allergies No Known Allergies Allergy (Verified 08/27/17 00:20) Home medications list reviewed: Yes Home Medications: Aspirin Chewable [Aspirin Chewable*] 81 mg PO DAILY 04/08/18 Carvedilol [Coreg] 12.5 mg PO BID 04/08/18 Clopidogrel Bisulfate [Plavix*] 75 mg PO DAILY 04/08/18 Collagenase [Santyl Ointment*] 1 fern TOP TID 04/08/18 Digoxin [Lanoxin*] 125 mcg PO DAILY 04/08/18 Folic Acid/Vitamin B Comp W-C [Nephro-Josh Tablet] 0.8 mg PO DAILY 04/08/18 Furosemide [Lasix] 40 mg PO BID 04/08/18 Hydralazine [Apresoline] 25 mg PO TID 04/08/18 Lisinopril [Prinivil*] 5 mg PO DAILY 04/08/18 Melatonin [Melatonin*] 3 mg PO BEDTIME 04/08/18 Metformin ER [Glucophage ER*] 500 mg PO BID 04/08/18 Mupirocin Cream [Bactroban 2% Cream*] 1 fern TOP BID 04/08/18 Nifedipine Xl [Procardia Xl*] 90 mg PO DAILY 04/08/18 - Past Medical/Surgical History Diabetic: Yes -: Atrial fibrillation, NO chronic anticoagulation -: CAD -: HTN -: DM Type 2 -: Anemia of Chronic disease -: Chronic Renal Disease -: PVD -: DM Foot ulcer -: Diabetic neuropathy -: Malnutrition -: Hx of Pacemaker/Defibrillator -: PEG tube -: AICD placement -: PEG tube placement Psychosocial/ Personal History: retirement placement - Family History Father Medical History: Diabetes Mother Medical History: Diabetes - Social History Smoking Status: Unknown if ever smoked Alcohol use: No CD- Drugs: No Caffeine use: No Place of Residence: Home Review of Systems 10-point ROS is otherwise unremarkable General: Weakness, Malaise Integumentary: Lesions (Odor) Physical Examination Temp Pulse Resp BP Pulse Ox 97.4 F 69 16 105/55 L 97 04/09/18 20:00 04/09/18 20:00 04/09/18 20:00 04/09/18 20:00 04/09/18 20:00 General: In no apparent distress, Cooperative, Cachectic HEENT: Normocephalic, Mucous membr. moist/pink Neck: Supple Cardiovascular: No edema, Regular rate/rhythm, No rubs Gastrointestinal: Soft and benign (PEG), No ascites Musculoskeletal: No clubbing, No contractures Integumentary: Skin breakdown, Diabetic ulcer, Pressure ulcer Neurological: Normal speech, Abnormal strength, Dementia Blood work reviewed in the chart. Na 133; K 5.2; BUN 57; Cr 4.1 Imagings Data: EXAM DESCRIPTION: RAD - Chest Single View - 04/08/2018 9:11 am CLINICAL HISTORY: COUGH Chest pain. COMPARISON: Chest Single View dated 02/13/2018; Chest Single View dated 2017; Chest Single View dated 12/22/2017; Chest Single View dated 12/21/2017 FINDINGS: Portable technique limits examination quality. The lungs are emphysematous without acute infiltrate seen. Hilar fullness is again seen likely related to enlarged pulmonary arterial tree. The heart is upper limit normal in size with sternotomy wires present. Multi lead pacer/ defibrillator device present. Conclusions/Impression: A/ CARMEN. CKD IV with proteinuria. Hyponatremia. Hyperkalemia. Acidosis. 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 Systolic CHF, chronic. DM/ PAD / Pressure ulcer. Osteomyelitis. Moderate malnutrition. Anemia in chronic illness. P/ Continue current POC and Medications. Start IVF. Initiate tube feeds lucila. Will restart Lasix as needed. Consider bicarb therapy. Would care as ordered. Agree with abx. Follow up with ID. No NSAIDs. AM labs. Daily weight. Thank you kindly for the consultation.
[2018-04-09] MEDS: MELATONIN 3 MG TABLET PO SCH (23:50)
[2018-04-09] MEDS: MUPIROCIN 2% OINT 22GM TUBE TOP SCH (23:57)
[2018-04-09] MEDS: SODIUM HYPOCHLORITE 0.5% 473 ML TOP SCH (23:58)
[2018-04-10] MEDS: COLLAGENASE 30 GM OINTMENT TOP SCH ×4 (01:37→21:00)
[2018-04-10 03:24] LABS: UR MICROALBUMIN 5.6 mg/dL (< 1.9); Urine Appearance CLOUDY; Urine Bilirubin NEGATIVE (NEG); Urine Blood NEGATIVE (NEG); Urine Color YELLOW; Urine Glucose NEGATIVE (NEG); Urine Protein TRACE (NEG); Urine Specific Gravity 1.015 (1.005-1.030); Urine Urobilinogen 0.2 mg/dL (0.2-1.0)
[2018-04-10 04:54] LABS: Urine Bacteria LOADED /HPF (<20); Urine RBC NONE SEEN /HPF (NONE SEEN)
[2018-04-10 04:55] LABS: Urine Culture Reflex Order NOT NEEDED
[2018-04-10 05:23] LABS: Absolute Monocytes 0.9 K/uL (0.1-1.3); Absolute Neutrophil 4.9 K/uL (1.8-8.0); Basophils % 0.4 % (0-1.3); Eosinophils % 2.9 % (0-4.4); Hematocrit 34.8 % (36.0-45.0); Lymphocytes % 24.8 % (15.3-44.8); MCH 29.7 pg (27.0-35.0); MCV 90.7 fL (80-100); MPV 7.9 fL (7.6-11.3); Monocytes % 11.3 % (3.3-12.3); RBC Red Blood Cell Count 3.84 M/uL (3.86-4.86)
[2018-04-10 05:53] LABS: Potassium 4.2 mmol/L (3.5-5.1)
[2018-04-10 05:54] LABS: Phosphorus 2.6 mg/dL (2.5-4.9); Uric Acid 7.6 mg/dL (2.6-6.0)
[2018-04-10] MEDS: INSULIN -REGULAR HUMAN 50 UNIT/0.5 ML ML SQ SCH ×4 (07:30→23:05)
[2018-04-10] MEDS ORDERED: HOME MED 1 EA UNK (Folic Acid/Vitamin B Comp W-C [Nephro-Vite Tablet] 0.8 MG) PO SCH (09:00)
[2018-04-10] MEDS: SODIUM BICARB 325 MG TAB PO SCH ×3 (10:00→22:21)
[2018-04-10] MEDS: MULTIVITAMINS,THERAPEUT 1 TAB PO SCH (10:28)
[2018-04-10] MEDS: CLOPIDOGREL 75 MG TABLET PO SCH (10:28)
[2018-04-10] MEDS: CARVEDILOL 12.5 MG TAB PO SCH ×2 (10:29→22:21)
[2018-04-10] MEDS: ASPIRIN 81 MG CHEWABLE TABLET PO SCH (10:30)
[2018-04-10] MEDS: LISINOPRIL 5 MG TAB PO SCH (10:30)
[2018-04-10] MEDS: HYDRALAZINE HCL 25 MG TABLET PO SCH ×3 (10:31→22:22)
[2018-04-10] MEDS: NIFEDIPINE XL 90 MG TABLET PO SCH (10:31)
[2018-04-10] MEDS: DIGOXIN 0.125 MG TABLET PO SCH (10:32)
[2018-04-10] MEDS: VITAMIN D 5,000 UNIT CAP PO SCH (10:33)
[2018-04-10] MEDS: NEPRO 1,000 ML BOT FT SCH ×4 (10:38→21:00)
[2018-04-10] MEDS: MUPIROCIN 2% OINT 22GM TUBE TOP SCH ×2 (10:45→21:00)
[2018-04-10] MEDS: MEDIHONEY 44 ML TOPICAL TUBE TOP SCH (10:45)
[2018-04-10] MEDS: SODIUM HYPOCHLORITE 0.5% 473 ML TOP SCH ×2 (10:46→21:00)
[2018-04-10] MEDS: D5 0.9 NS 1,000 ML IV SCH (10:47)
--- NOTE | 2018-04-10 11:53 | P.PN ---
Subjective Date of Service: 04/10/18 Primary Care Provider: Dr Owen Chief Complaint: Hypoglcemia Patient seen and examined at bedside with RN today that chart reviewed. Case discussed with general surgery. -overnight no complaints to offer. Patient remained alert and oriented x3. This morning patient has no complaints to offer is well. Review of Systems 10-point ROS is otherwise unremarkable Physical Examination - Vital Signs Temperature: 97.9 F Blood Pressure: 142/97 Pulse: 70 Respirations: 16 Pulse Ox (%): 97 - Physical Exam General: Alert, In no apparent distress HEENT: Atraumatic, PERRLA, EOMI Neck: Supple, JVD not distended Respiratory: Clear to auscultation bilaterally, Normal air movement Cardiovascular: Regular rate/rhythm, Normal S1 S2 Gastrointestinal: Normal bowel sounds, No tenderness Musculoskeletal: Erythema, Tenderness, Warmth Integumentary: No rashes Neurological: Normal speech, Normal tone, Normal affect Lymphatics: No axilla or inguinal lymphadenopathy - Studies Laboratory Data (last 24 hrs) 04/10/18 04:26: Sodium 137, Potassium 4.2, BUN 53 H, Creatinine 3.90 H, Glucose 139 H, Uric Acid 7.6 H, Phosphorus 2.6 04/10/18 04:26: WBC 8.1, Hgb 11.4 L, Hct 34.8 L D, Plt Count 229 Microbiology Data (last 24 hrs): 04/08/18 13:20 Clean Catch Urine [place] Count - Final >100,000 CFU/ML. 04/08/18 13:20 Clean Catch Urine - Final Klebsiella Pneumoniae Medications List Reviewed: Yes Assessment And Plan - Current Problems (Diagnosis) (1) UTI (urinary tract infection) Current Visit: Yes Status: Acute Plan: UA concerning for UTI. -urine culture positive for ESBL -IV meropenum started -Picc line placed - consulted for IV meropenum for 14 days BID 1g Qualifiers: Urinary tract infection type: acute cystitis (2) Hypoglycemia Onset Date: 04/09/18 Current Visit: Yes Status: Resolved Plan: Now resolved. Will continue with tube feedings here in the hospital. Will get dietary consult for appropriate feeding recommendations at this time. (3) CHF (congestive heart failure) Onset Date: 12/13/17 Current Visit: No Status: Chronic Qualifiers: Heart failure type: systolic Heart failure chronicity: acute on chronic Qualified Code(s): I50.23 - Acute on chronic systolic (congestive) heart failure (4) Chronic kidney disease (CKD) Current Visit: No Status: Chronic Qualifiers: Chronic kidney disease stage: stage 3 (moderate) Qualified Code(s): N18.3 - Chronic kidney disease, stage 3 (moderate) (5) Diabetes Onset Date: 08/27/17 Current Visit: No Status: Chronic Qualifiers: Diabetes mellitus type: type 2 Diabetes mellitus long term care pharmacist insulin use: without long term care pharmacist use Diabetes mellitus complication status: with unspecified complications Qualified Code(s): E11.8 - Type 2 diabetes mellitus with unspecified complications (6) Osteomyelitis Onset Date: 12/13/17 Current Visit: No Status: Chronic Qualifiers: Osteomyelitis type: unspecified type Osteomyelitis location: foot Laterality: right Qualified Code(s): M86.9 - Osteomyelitis, unspecified (7) Pressure ulcer of coccygeal region, stage 3 Onset Date: 04/09/18 Current Visit: Yes Status: Chronic (8) 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 Onset Date: 04/09/18 Current Visit: Yes Status: Chronic (9) Stage III pressure ulcer of right heel Onset Date: 04/09/18 Current Visit: Yes Status: Chronic (10) Atrial fibrillation Onset Date: 12/13/17 Current Visit: No Status: Chronic Qualifiers: Atrial fibrillation type: chronic (11) CAD (coronary artery disease) Onset Date: 08/27/17 Current Visit: No Status: Chronic Qualifiers: Coronary Disease-Associated Artery/Lesion type: unspecified vessel or lesion type (12) History of automatic internal cardiac defibrillator (AICD) Current Visit: No Status: Chronic (13) Hypertension Onset Date: 08/27/17 Current Visit: No Status: Chronic Qualifiers: Hypertension type: essential hypertension (14) Malnutrition Onset Date: 12/13/17 Current Visit: No Status: Chronic Qualifiers: Malnutrition type: protein-calorie malnutrition Protein-calorie malnutrition severity: severe Qualified Code(s): E43 - Unspecified severe protein-calorie malnutrition (15) Status post insertion of percutaneous endoscopic gastrostomy (PEG) tube Onset Date: 02/13/18 Current Visit: No Status: Chronic (16) Dementia Onset Date: 08/27/17 Current Visit: No Status: Chronic Qualifiers: Discharge Plan: Home Plan to discharge in: 48 Hours - Code Status/Comfort Care Code Status Assessed: Yes Critical Care: No
[2018-04-10] MEDS: Meropenem 500 MG in NA CHLORIDE 0.9% 100 ML IV SCH ×2 (12:38→22:22)
[2018-04-10] MEDS: ENOXAPARIN 30 MG/0.3 ML SQ SCH (16:53)
[2018-04-10 18:49] LABS: Urine Blood TRACE (NEG); Urine Glucose NEGATIVE (NEG); Urine Protein 1+ (NEG); Urine pH 5.5 (5.0-7.0)
[2018-04-10] MEDS ORDERED: Meropenem 1000 MG/VIAL IV SCH (21:00)
[2018-04-10] MEDS: MELATONIN 3 MG TABLET PO SCH (22:21)
--- NOTE | 2018-04-10 22:55 | P.PN ---
Date of Service: 04/10/18 Vital Signs Temp Pulse Resp BP Pulse Ox 98.1 F 70 17 120/57 L 99 04/10/18 16:00 04/10/18 22:21 04/10/18 16:00 04/10/18 22:21 04/10/18 16:00 Medications Acetaminophen (Tylenol -Extra Strength) 500 mg PO Q4HP PRN PRN Reason: [id number] Stop: 05/08/18 13:37 Aspirin (Aspirin Chewable) 81 mg PO DAILY RASHAWN Stop: 05/10/18 09:01 Last Admin: 04/10/18 10:30 Dose: 81 mg Carvedilol (Coreg) 12.5 mg PO BID RASHAWN Stop: 05/09/18 21:01 Last Admin: 04/10/18 22:21 Dose: 12.5 mg Cholecalciferol (Vitamin D 5,000 Iu Cap) 5,000 unit PO DAILY RASHAWN Stop: 05/10/18 09:01 Last Admin: 04/10/18 10:33 Dose: 5,000 unit Clopidogrel Bisulfate (Plavix) 75 mg PO DAILY RASHAWN Stop: 05/10/18 09:01 Last Admin: 04/10/18 10:28 Dose: 75 mg Collagenase (Santyl Ointment) 1 appl TOP TID [facility]WN Stop: 05/09/18 21:01 Last Admin: 04/10/18 21:00 Dose: 1 appl Dextrose (Dextrose 50% Syringe) 12.5 gm IV PRN PRN; Protocol PRN Reason: HYPOGLYCEMIA Stop: 05/09/18 05:48 Last Admin: 04/09/18 06:24 Dose: 12.5 gm Digoxin (Lanoxin) 0.125 mg PO DAILY RASHAWN Stop: 05/10/18 09:01 Last Admin: 04/10/18 10:32 Dose: 0.125 mg Emollient Gel (Medihoney Woundcare Gel) 1 appl TOP DAILY RASHAWN Stop: 05/10/18 09:01 Last Admin: 04/10/18 10:45 Dose: 1 applic Enoxaparin Sodium (Lovenox 30 Mg Inj) 30 mg SQ DAILY 5 PM RASHAWN Stop: 05/08/18 17:01 Last Admin: 04/10/18 16:53 Dose: 30 mg Enteral Nutritional Formula (Nepro) 237 ml FT QID RASHAWN Stop: 05/09/18 17:01 Last Admin: 04/10/18 21:00 Dose: 237 ml Glucagon (Glucagen) 1 mg IM 1X PRN; Protocol PRN Reason: HYPOGLYCEMIA Stop: 05/09/18 05:47 Hydralazine HCl (Apresoline) 10 mg IV Q6HP PRN PRN Reason: HIGH BP Stop: 05/09/18 00:28 Last Admin: 04/09/18 00:56 Dose: 10 mg Hydralazine HCl (Apresoline) 25 mg PO TID [facility] Stop: 05/09/18 21:01 Last Admin: 04/10/18 22:22 Dose: 25 mg Dextrose/Sodium Chloride (D5w Ns 1-Liter Bag) 1,000 mls @ 75 mls/hr IV .[id number] [facility] Stop: 05/09/18 23:01 Last Admin: 04/10/18 10:47 Dose: 1,000 mls Meropenem 500 mg/ Sodium (Chloride) 100 mls @ 100 mls/hr IV Q12HR [facility] Stop: 05/10/18 12:01 Last Admin: 04/10/18 22:22 Dose: 100 mls Insulin Human Regular (Novolin -R) 0 unit SQ ACHS [facility]; Protocol Stop: 05/08/18 13:37 Last Admin: 04/10/18 17:30 Dose: 100 unit Lisinopril (Prinivil) 5 mg PO DAILY [facility] Stop: 05/10/18 09:01 Last Admin: 04/10/18 10:30 Dose: 5 mg Melatonin (Melatonin) 3 mg PO BEDTIME [facility] Stop: 05/09/18 21:01 Last Admin: 04/10/18 22:21 Dose: 3 mg Mupirocin (Bactroban 2% Ointment) 1 appl TOP BID [facility] Stop: 05/09/18 21:01 Last Admin: 04/10/18 21:00 Dose: 1 appl Nifedipine (Procardia Xl) 90 mg PO DAILY [facility] Stop: 05/10/18 09:01 Last Admin: 04/10/18 10:31 Dose: 90 mg Ondansetron HCl (Zofran) 4 mg IV Q6HP PRN PRN Reason: NAUSEA / VOMITING Stop: 05/08/18 13:37 Sodium Bicarbonate (Sodium Bicarb 325 Mg) 650 mg PO TID [facility] Stop: 10/06/18 09:01 Last Admin: 04/10/18 22:21 Dose: 650 mg Sodium Chloride (Normal Saline Flush) 10 ml IV BID [facility] Stop: 05/08/18 21:01 Last Admin: 04/10/18 21:00 Dose: Not Given Sodium Hypochlorite (Dakin's 0.5% Full Strength) 1 appl TOP BID [facility] Stop: 05/09/18 21:01 Last Admin: 04/10/18 21:00 Dose: 1 appl Vitamin B Complex/Vit C/Folic Acid (Nephro-Josh) 1 tab PO DAILY [facility] Stop: 05/10/18 09:01 Last Admin: 04/10/18 10:28 Dose: 1 tab Lab Results (last 24 hrs) 04/10/18 10:56: POC Glucose 200 H 04/10/18 07:34: POC Glucose 163 H 04/10/18 04:26: Sodium 137, Potassium 4.2, Chloride 108 H, Carbon Dioxide 19 L, BUN 53 H, Creatinine 3.90 H, Estimated GFR 13 L, Glucose 139 H, Uric Acid 7.6 H , Calcium 8.3 L, Phosphorus 2.6 04/10/18 04:26: WBC 8.1, RBC 3.84 L, Hgb 11.4 L, Hct 34.8 L D, MCV 90.7, MCH 29.7, MCHC 32.7, RDW 13.7, Plt Count 229, MPV 7.9, Neutrophils % 60.6, Lymphocytes % 24.8, Monocytes % 11.3, Eosinophils % 2.9, Basophils % 0.4, Absolute Neutrophils 4.9, Absolute Lymphocytes 2.0, Absolute Monocytes 0.9, Absolute Eosinophils 0.2, Absolute Basophils 0.0 04/10/18 01:00: Urine Color Yellow, Urine Appearance Cloudy, Urine pH 5.0, Ur Specific [place] 1.015, Urine Ketones Negative, Urine Blood Negative, Urine Nitrite Negative, Urine Bilirubin Negative, Urine Urobilinogen 0.2, Ur Leukocyte Esterase 3+ H, Urine RBC None seen, Urine WBC >50 H, Ur Squamous Epith Cells <5, Urine Bacteria Loaded H, Urine Culture Reflexed Not needed, Urine Glucose Negative, Urine Total Protein Trace 04/10/18 01:00: Ur Random Microalbumin 5.6 H, Urine Creatinine 98.0, Microalb/ Creat Ratio 57.1 H 04/08/18 13:26: Urine pH 5.5, Ur Specific [place] 1.010, Urine Ketones Negative , Urine Blood Trace H, Urine Nitrite Negative, Ur Leukocyte Esterase 3+ H, Urine Glucose Negative, Urine Total Protein 1+ H Microbiology Results 04/08/18 13:20 Clean Catch Urine [place] Count - Final >100,000 CFU/ML. 04/08/18 13:20 Clean Catch Urine - Final Klebsiella Pneumoniae 04/10/18 00:15 Wound - Right Foot Gram Stain - Final Assessment/ Plan: Nephrology. Limited IH/ ROS due to dementia. CPS stable with CP or SOB. No acute events overnight. Vitals, medications, blood work and imaging reviewed in the chart. General: In no apparent distress, Cooperative, Cachectic HEENT: Normocephalic, Mucous membr. moist/pink Neck: Supple Cardiovascular: No edema, Regular rate/rhythm, No rubs Gastrointestinal: Soft and benign (PEG), No ascites Musculoskeletal: No clubbing, No contractures Integumentary: Skin breakdown, Diabetic ulcer, Pressure ulcer Neurological: Normal speech, Abnormal strength, Dementia Blood work reviewed in the chart. Na 133; K 5.2; BUN 57; Cr 4.1 Imagings Data: EXAM DESCRIPTION: RAD - Chest Single View - 04/08/2018 9:11 am CLINICAL HISTORY: COUGH Chest pain. COMPARISON: Chest Single View dated 02/13/2018; Chest Single View dated 2017; Chest Single View dated 12/22/2017; Chest Single View dated 12/21/2017 FINDINGS: Portable technique limits examination quality. The lungs are emphysematous without acute infiltrate seen. Hilar fullness is again seen likely related to enlarged pulmonary arterial tree. The heart is upper limit normal in size with sternotomy wires present. Multi lead pacer/ defibrillator device present. Conclusions/Impression: A/ CARMEN. CKD IV with proteinuria. Hyponatremia. Hyperkalemia. Acidosis. 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 Systolic CHF, chronic. DM/ PAD / Pressure ulcer. Osteomyelitis. Moderate malnutrition. Anemia in chronic illness. P/ Continue current POC and Medications. Continue IVF and tube feeds. Will restart Lasix as needed. Start bicarb and vitamin d. Wound care as ordered. Agree with abx. Follow up with ID. No NSAIDs. AM labs. Daily weight.
[2018-04-11] MEDS: D5 0.9 NS 1,000 ML IV SCH ×2 (02:36→15:45)
--- NOTE | 2018-04-11 05:49 | RAD REPORT ---
EXAM DESCRIPTION: RAD - Chest Single View - 04/11/2018 2:36 am CLINICAL HISTORY: Device placement PICC line placement COMPARISON: none FINDINGS: A PICC line has been inserted with its tip in the superior vena cava. The lungs appear clear of acute infiltrate. The heart is mildly enlarged. Pacemaker leads are in plac e. Postsurgical changes involve the chest IMPRESSION: PICC line with its tip in the superior vena cava
[2018-04-11] MEDS: INSULIN -REGULAR HUMAN 50 UNIT/0.5 ML ML SQ SCH ×4 (07:30→20:51)
[2018-04-11] MEDS: MUPIROCIN 2% OINT 22GM TUBE TOP SCH ×3 (09:00→20:50)
[2018-04-11] MEDS: COLLAGENASE 30 GM OINTMENT TOP SCH ×3 (09:00→20:52)
[2018-04-11] MEDS: CARVEDILOL 12.5 MG TAB PO SCH ×2 (09:00→20:50)
[2018-04-11] MEDS ORDERED: Levofloxacin 250mg IV 250 MG/50 ML BAG IV SCH (09:00)
[2018-04-11] MEDS: Meropenem 500 MG in NA CHLORIDE 0.9% 100 ML IV SCH ×2 (10:26→20:49)
[2018-04-11] MEDS: HYDRALAZINE HCL 25 MG TABLET PO SCH ×3 (10:28→20:50)
[2018-04-11] MEDS: ASPIRIN 81 MG CHEWABLE TABLET PO SCH (10:28)
[2018-04-11] MEDS: VITAMIN D 5,000 UNIT CAP PO SCH (10:29)
[2018-04-11] MEDS: CLOPIDOGREL 75 MG TABLET PO SCH (10:30)
[2018-04-11] MEDS: SODIUM BICARB 325 MG TAB PO SCH ×3 (10:30→20:49)
[2018-04-11] MEDS: MULTIVITAMINS,THERAPEUT 1 TAB PO SCH (10:31)
[2018-04-11] MEDS: MEDIHONEY 44 ML TOPICAL TUBE TOP SCH (10:33)
[2018-04-11] MEDS: SODIUM HYPOCHLORITE 0.5% 473 ML TOP SCH ×2 (10:35→20:51)
[2018-04-11] MEDS: NIFEDIPINE XL 90 MG TABLET PO SCH (10:36)
[2018-04-11] MEDS: DIGOXIN 0.125 MG TABLET PO SCH (10:36)
[2018-04-11] MEDS: LISINOPRIL 5 MG TAB PO SCH (10:39)
[2018-04-11] MEDS: NEPRO 1,000 ML BOT FT SCH ×4 (10:40→20:51)
--- NOTE | 2018-04-11 16:51 | P.PN ---
Subjective Date of Service: 04/11/18 Primary Care Provider: Dr Owen Chief Complaint: Hypoglcemia Patient seen and examined at bedside with RN today that chart reviewed. Case discussed with general surgery. -overnight no complaints to offer. Patient remained alert and oriented x3. This morning patient has no complaints to offer is well. Review of Systems 10-point ROS is otherwise unremarkable Physical Examination - Vital Signs Temperature: 97.4 F Blood Pressure: 137/78 Pulse: 70 Respirations: 18 Pulse Ox (%): 97 - Physical Exam General: Alert, In no apparent distress HEENT: Atraumatic, PERRLA, EOMI Neck: Supple, JVD not distended Respiratory: Clear to auscultation bilaterally, Normal air movement Cardiovascular: Regular rate/rhythm, Normal S1 S2 Gastrointestinal: Normal bowel sounds, No tenderness Musculoskeletal: No tenderness Integumentary: No rashes Neurological: Normal speech, Normal tone, Normal affect Lymphatics: No axilla or inguinal lymphadenopathy - Studies Microbiology Data (last 24 hrs): 04/10/18 00:15 Wound - Right Foot Gram Stain - Final 04/08/18 13:20 Clean Catch Urine [place] Count - Final >100,000 CFU/ML. 04/08/18 13:20 Clean Catch Urine - Final Klebsiella Pneumoniae Medications List Reviewed: Yes Assessment And Plan - Current Problems (Diagnosis) (1) UTI (urinary tract infection) Onset Date: 04/11/18 Current Visit: Yes Status: Acute Plan: UA concerning for UTI. -urine culture positive for ESBL -IV meropenum started -Picc line placed - consulted for IV meropenum for 14 days BID 1g Qualifiers: Urinary tract infection type: acute cystitis (2) Hypoglycemia Onset Date: 04/09/18 Current Visit: Yes Status: Resolved Plan: Now resolved. Will continue with tube feedings here in the hospital. Will get dietary consult for appropriate feeding recommendations at this time. (3) CHF (congestive heart failure) Onset Date: 12/13/17 Current Visit: No Status: Chronic Qualifiers: Heart failure type: systolic Heart failure chronicity: acute on chronic Qualified Code(s): I50.23 - Acute on chronic systolic (congestive) heart failure (4) Chronic kidney disease (CKD) Current Visit: No Status: Chronic Qualifiers: Chronic kidney disease stage: stage 3 (moderate) Qualified Code(s): N18.3 - Chronic kidney disease, stage 3 (moderate) (5) Diabetes Onset Date: 08/27/17 Current Visit: No Status: Chronic Qualifiers: Diabetes mellitus type: type 2 Diabetes mellitus hammer heater insulin use: without hammer heater use Diabetes mellitus complication status: with unspecified complications Qualified Code(s): E11.8 - Type 2 diabetes mellitus with unspecified complications (6) Osteomyelitis Onset Date: 12/13/17 Current Visit: No Status: Chronic Qualifiers: Osteomyelitis type: unspecified type Osteomyelitis location: foot Laterality: right Qualified Code(s): M86.9 - Osteomyelitis, unspecified (7) Pressure ulcer of coccygeal region, stage 3 Onset Date: 04/09/18 Current Visit: Yes Status: Chronic (8) 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 Onset Date: 04/09/18 Current Visit: Yes Status: Chronic (9) Stage III pressure ulcer of right heel Onset Date: 04/09/18 Current Visit: Yes Status: Chronic (10) Atrial fibrillation Onset Date: 12/13/17 Current Visit: No Status: Chronic Qualifiers: Atrial fibrillation type: chronic (11) CAD (coronary artery disease) Onset Date: 08/27/17 Current Visit: No Status: Chronic Qualifiers: Coronary Disease-Associated Artery/Lesion type: unspecified vessel or lesion type (12) History of automatic internal cardiac defibrillator (AICD) Current Visit: No Status: Chronic (13) Hypertension Onset Date: 08/27/17 Current Visit: No Status: Chronic Qualifiers: Hypertension type: essential hypertension (14) Malnutrition Onset Date: 12/13/17 Current Visit: No Status: Chronic Qualifiers: Malnutrition type: protein-calorie malnutrition Protein-calorie malnutrition severity: severe Qualified Code(s): E43 - Unspecified severe protein-calorie malnutrition (15) Status post insertion of percutaneous endoscopic gastrostomy (PEG) tube Onset Date: 02/13/18 Current Visit: No Status: Chronic (16) Dementia Onset Date: 08/27/17 Current Visit: No Status: Chronic Qualifiers: Discharge Plan: Home Plan to discharge in: 48 Hours - Code Status/Comfort Care Code Status Assessed: Yes Critical Care: No
[2018-04-11] MEDS: ENOXAPARIN 30 MG/0.3 ML SQ SCH (18:16)
--- NOTE | 2018-04-11 20:33 | P.PN ---
Date of Service: 04/11/18 Vital Signs Temp Pulse Resp BP Pulse Ox 97.3 F 70 18 123/58 L 98 04/11/18 20:00 04/11/18 20:00 04/11/18 20:00 04/11/18 20:00 04/11/18 20:00 Medications Acetaminophen (Tylenol -Extra Strength) 500 mg PO Q4HP PRN PRN Reason: [id number] Stop: 05/08/18 13:37 Aspirin (Aspirin Chewable) 81 mg PO DAILY RASHAWN Stop: 05/10/18 09:01 Last Admin: 04/11/18 10:28 Dose: 81 mg Carvedilol (Coreg) 12.5 mg PO BID RAS[facility]WN Stop: 05/09/18 21:01 Last Admin: 04/11/18 09:00 Dose: Not Given Cholecalciferol (Vitamin D 5,000 Iu Cap) 5,000 unit PO DAILY RAS[facility]WN Stop: 05/10/18 09:01 Last Admin: 04/11/18 10:29 Dose: 5,000 unit Clopidogrel Bisulfate (Plavix) 75 mg PO DAILY [facility] Stop: 05/10/18 09:01 Last Admin: 04/11/18 10:30 Dose: 75 mg Collagenase (Santyl Ointment) 1 appl TOP TID [facility]HAWN Stop: 05/09/18 21:01 Last Admin: 04/11/18 14:00 Dose: Not Given Dextrose (Dextrose 50% Syringe) 12.5 gm IV PRN PRN; Protocol PRN Reason: HYPOGLYCEMIA Stop: 05/09/18 05:48 Last Admin: 04/09/18 06:24 Dose: 12.5 gm Digoxin (Lanoxin) 0.125 mg PO DAILY RASHAWN Stop: 05/10/18 09:01 Last Admin: 04/11/18 10:36 Dose: 0.125 mg Emollient Gel (Medihoney Woundcare Gel) 1 appl TOP DAILY [facility] Stop: 05/10/18 09:01 Last Admin: 04/11/18 10:33 Dose: 1 applic Enoxaparin Sodium (Lovenox 30 Mg Inj) 30 mg SQ DAILY 5 PM RASHAWN Stop: 05/08/18 17:01 Last Admin: 04/11/18 18:16 Dose: 30 mg Enteral Nutritional Formula (Nepro) 237 ml FT QID [facility]WN Stop: 05/09/18 17:01 Last Admin: 04/11/18 18:16 Dose: 237 ml Glucagon (Glucagen) 1 mg IM 1X PRN; Protocol PRN Reason: HYPOGLYCEMIA Stop: 05/09/18 05:47 Hydralazine HCl (Apresoline) 10 mg IV Q6HP PRN PRN Reason: HIGH BP Stop: 05/09/18 00:28 Last Admin: 04/09/18 00:56 Dose: 10 mg Hydralazine HCl (Apresoline) 25 mg PO TID [facility] Stop: 05/09/18 21:01 Last Admin: 04/11/18 15:48 Dose: 25 mg Dextrose/Sodium Chloride (D5w Ns 1-Liter Bag) 1,000 mls @ 75 mls/hr IV .[id number] [facility] Stop: 05/09/18 23:01 Last Admin: 04/11/18 15:45 Dose: 1,000 mls Meropenem 500 mg/ Sodium (Chloride) 100 mls @ 100 mls/hr IV Q12HR [facility] Stop: 05/10/18 12:01 Last Admin: 04/11/18 10:26 Dose: 100 mls Insulin Human Regular (Novolin -R) 0 unit SQ ACHS [facility]; Protocol Stop: 05/08/18 13:37 Last Admin: 04/11/18 16:05 Dose: Not Given Lisinopril (Prinivil) 5 mg PO DAILY [facility] Stop: 05/10/18 09:01 Last Admin: 04/11/18 10:39 Dose: 5 mg Melatonin (Melatonin) 3 mg PO BEDTIME [facility] Stop: 05/09/18 21:01 Last Admin: 04/10/18 22:21 Dose: 3 mg Mupirocin (Bactroban 2% Ointment) 1 appl TOP BID [facility] Stop: 05/09/18 21:01 Last Admin: 04/11/18 09:00 Dose: Not Given Nifedipine (Procardia Xl) 90 mg PO DAILY [facility] Stop: 05/10/18 09:01 Last Admin: 04/11/18 10:36 Dose: 90 mg Ondansetron HCl (Zofran) 4 mg IV Q6HP PRN PRN Reason: NAUSEA / VOMITING Stop: 05/08/18 13:37 Sodium Bicarbonate (Sodium Bicarb 325 Mg) 650 mg PO TID [facility] Stop: 05/10/18 09:01 Last Admin: 04/11/18 15:48 Dose: 650 mg Sodium Chloride (Normal Saline Flush) 10 ml IV BID [facility] Stop: 05/08/18 21:01 Last Admin: 04/11/18 10:39 Dose: 10 ml Sodium Hypochlorite (Dakin's 0.5% Full Strength) 1 appl TOP BID [facility] Stop: 05/09/18 21:01 Last Admin: 04/11/18 10:35 Dose: 1 appl Vitamin B Complex/Vit C/Folic Acid (Nephro-Josh) 1 tab PO DAILY [facility] Stop: 05/10/18 09:01 Last Admin: 04/11/18 10:31 Dose: 1 tab Lab Results (last 24 hrs) 04/09/18 11:36: POC Glucose 99 Microbiology Results 04/10/18 00:15 Wound - Right Foot Gram Stain - Final 04/10/18 00:15 Wound - Right Foot Culture & Sensitivity - Preliminary 04/08/18 13:20 Clean Catch Urine [place] Count - Final >100,000 CFU/ML. 04/08/18 13:20 Clean Catch Urine - Final Klebsiella Pneumoniae Assessment/ Plan: Nephrology. Limited IH/ ROS due to dementia. CPS stable with CP or SOB. No acute events overnight. Vitals, medications, blood work and imaging reviewed in the chart. General: In no apparent distress, Cooperative, Cachectic HEENT: Normocephalic, Mucous membr. moist/pink Neck: Supple Cardiovascular: No edema, Regular rate/rhythm, No rubs Gastrointestinal: Soft and benign (PEG), No ascites Musculoskeletal: No clubbing, No contractures Integumentary: Skin breakdown, Diabetic ulcer, Pressure ulcer Neurological: Normal speech, Abnormal strength, Dementia Blood work reviewed in the chart. Na 133; K 5.2; BUN 57; Cr 4.1 Imagings Data: EXAM DESCRIPTION: RAD - Chest Single View - 04/08/2018 9:11 am CLINICAL HISTORY: COUGH Chest pain. COMPARISON: Chest Single View dated 02/13/2018; Chest Single View dated 2017; Chest Single View dated 12/22/2017; Chest Single View dated 12/21/2017 FINDINGS: Portable technique limits examination quality. The lungs are emphysematous without acute infiltrate seen. Hilar fullness is again seen likely related to enlarged pulmonary arterial tree. The heart is upper limit normal in size with sternotomy wires present. Multi lead pacer/ defibrillator device present. Conclusions/Impression: A/ CARMEN. CKD IV with proteinuria. Hyponatremia. Hyperkalemia. Acidosis. 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 Systolic CHF, chronic. DM/ PAD / Pressure ulcer. Osteomyelitis. Moderate malnutrition. Anemia in chronic illness. ESBL Klebsiella Cystitis. P/ Continue current POC and Medications. Continue IVF and tube feeds. Will restart Lasix as needed. Wound care as ordered. Agree with abx. Follow up with ID. No NSAIDs. AM labs. Daily weight.
[2018-04-11] MEDS: MELATONIN 3 MG TABLET PO SCH (20:50)
[2018-04-12] MEDS: D5 0.9 NS 1,000 ML IV SCH (04:50)
[2018-04-12 05:12] LABS: Absolute Lymphocytes (CBC) 1.4 K/uL (0.7-4.9); Absolute Monocytes 0.8 K/uL (0.1-1.3); Absolute Neutrophil 7.4 K/uL (1.8-8.0); Basophils % 0.4 % (0-1.3); Eosinophils % 4.4 % (0-4.4); Hematocrit 30.4 % (36.0-45.0); MCH 29.3 pg (27.0-35.0); MCV 88.6 fL (80-100); MPV 8.2 fL (7.6-11.3); Monocytes % 7.8 % (3.3-12.3); RBC Red Blood Cell Count 3.43 M/uL (3.86-4.86)
[2018-04-12 05:23] LABS: Albumin 1.7 g/dL (3.4-5.0); Bilirubin Total 0.1 mg/dL (0.2-1.0); Potassium 3.9 mmol/L (3.5-5.1); Protein, Total 5.5 g/dL (6.4-8.2); Uric Acid 5.7 mg/dL (2.6-6.0)
[2018-04-12] MEDS: INSULIN -REGULAR HUMAN 50 UNIT/0.5 ML ML SQ SCH ×2 (07:30→12:03)
[2018-04-12] MEDS: HYDRALAZINE HCL 25 MG TABLET PO SCH (09:00)
[2018-04-12] MEDS: COLLAGENASE 30 GM OINTMENT TOP SCH (09:00)
[2018-04-12] MEDS: NIFEDIPINE XL 90 MG TABLET PO SCH (09:00)
[2018-04-12] MEDS: MUPIROCIN 2% OINT 22GM TUBE TOP SCH (09:00)
[2018-04-12] MEDS: CARVEDILOL 12.5 MG TAB PO SCH (09:00)
[2018-04-12] MEDS: LISINOPRIL 5 MG TAB PO SCH (09:00)
[2018-04-12] MEDS: Meropenem 500 MG in NA CHLORIDE 0.9% 100 ML IV SCH (09:45)
[2018-04-12] MEDS: SODIUM BICARB 325 MG TAB PO SCH (09:46)
[2018-04-12] MEDS: DIGOXIN 0.125 MG TABLET PO SCH (09:47)
[2018-04-12] MEDS: ASPIRIN 81 MG CHEWABLE TABLET PO SCH (09:47)
[2018-04-12] MEDS: MULTIVITAMINS,THERAPEUT 1 TAB PO SCH (09:47)
[2018-04-12] MEDS: VITAMIN D 5,000 UNIT CAP PO SCH (09:47)
[2018-04-12] MEDS: CLOPIDOGREL 75 MG TABLET PO SCH (09:48)
[2018-04-12] MEDS: NEPRO 1,000 ML BOT FT SCH ×2 (09:51→13:00)
[2018-04-12] MEDS: MEDIHONEY 44 ML TOPICAL TUBE TOP SCH (12:04)
[2018-04-12] MEDS: SODIUM HYPOCHLORITE 0.5% 473 ML TOP SCH (12:04)
--- NOTE | 2018-04-12 13:13 | P.DS ---
Admission Date: 04/10/18 Discharge Date: 04/12/18 Primary Care Provider: Dr Owen Disposition: DC HOME/HOME HEALTH CARE Discharge Condition: FAIR Reason for Admission: Hypoglcemia - Problems (1) UTI (urinary tract infection) Onset Date: 04/11/18 Current Visit: Yes Status: Acute Qualifiers: Urinary tract infection type: acute cystitis Hematuria presence: without hematuria Qualified Code(s): N30.00 - Acute cystitis without hematuria (2) CAD (coronary artery disease) Onset Date: 08/27/17 Current Visit: No Status: Chronic Qualifiers: Coronary Disease-Associated Artery/Lesion type: unspecified vessel or lesion type (3) DM foot ulcer Onset Date: 12/13/17 Current Visit: No Status: Chronic Qualifiers: Diabetic foot ulcer location: other Diabetes mellitus type: type 2 Laterality: right (4) Diabetes mellitus Onset Date: 12/13/17 Current Visit: No Status: Chronic Qualifiers: Diabetes mellitus type: type 2 Diabetes mellitus [employer] insulin use: unspecified [employer] insulin use status Diabetes mellitus complication status : with other specified complication Qualified Code(s): E11.69 - Type 2 diabetes mellitus with other specified complication Brief History of Present Illness: This is a 83-year-old female with significant past medical history who presented to the ED after having some hypoglycemia at the house. Patient's daughter at bedside states that her mom had blood sugar of 20 this morning and was having decreased consciousness she decided to open her mouth and give her some sugar under her tongue and her blood sugar luis carlos to 40. However patient was still altered and thus daughter called the EMS and they brought over to the ER here. On the way to the ER EMS did give patient a 50 and patient's blood sugar did go up to 200 post infusion. Patient in the ER became more alert and oriented however did appear to be weak and lethargic. Patient has been having some decreasing appetite lately which might be the cause of her hyperglycemia. No new changes at this time. Patient's daughter at bedside denies having any fever chills nausea vomiting diarrhea chest pain shortness of breath or any other associated symptoms. Hospital Course: She was admitted for UTI. Ucx shows ESBL and she was started on Merepem IV. A PICC line was inserted and she is discharged on IV Merepem. She also has wound infection b/l feet. Wound cx shows growth sensitive to Merepem too. Vital Signs/Physical Exam: Temp Pulse Resp BP Pulse Ox 97.9 F 77 18 126/60 99 04/12/18 12:00 04/12/18 12:00 04/12/18 12:00 04/12/18 12:00 04/12/18 12:00 General: Alert HEENT: Atraumatic, PERRLA, EOMI Neck: Supple, JVD not distended Respiratory: Clear to auscultation bilaterally, Normal air movement Cardiovascular: Regular rate/rhythm, Normal S1 S2 Gastrointestinal: Normal bowel sounds, No tenderness Musculoskeletal: No tenderness Integumentary: Other Neurological: Normal tone, Normal affect Lymphatics: No axilla or inguinal lymphadenopathy Laboratory Data at Discharge: WBC 10.0 K/uL (4.3-10.9) D 04/12/18 05:00 Hgb 10.0 g/dL (12.0-15.0) L 04/12/18 05:00 Hct 30.4 % (36.0-45.0) L 04/12/18 05:00 Plt Count 220 K/uL (152-406) 04/12/18 05:00 PT 11.4 SECONDS (9.5-12.5) 04/08/18 09:56 INR 0.97 04/08/18 09:56 APTT 31.1 SECONDS (24.3-36.9) 04/08/18 09:56 Sodium 141 mmol/L (136-145) 04/12/18 05:00 Potassium 3.9 mmol/L (3.5-5.1) 04/12/18 05:00 BUN 53 mg/dL (7-18) H 04/12/18 05:00 Creatinine 3.10 mg/dL (0.55-1.3) H 04/12/18 05:00 Glucose 123 mg/dL (74-106) H 04/12/18 05:00 Uric Acid 5.7 mg/dL (2.6-6.0) 04/12/18 05:00 Phosphorus 2.6 mg/dL (2.5-4.9) 04/10/18 04:26 Magnesium 1.9 mg/dL (1.8-2.4) D 04/08/18 09:03 Total Bilirubin 0.1 mg/dL (0.2-1.0) L 04/12/18 05:00 AST 26 U/L (15-37) 04/12/18 05:00 ALT 15 U/L (12-78) 04/12/18 05:00 Alkaline Phosphatase 63 U/L (45-117) 04/12/18 05:00 Home Medications: Aspirin Chewable [Aspirin Chewable*] 81 mg PO DAILY 04/08/18 Carvedilol [Coreg] 12.5 mg PO BID 04/08/18 Clopidogrel Bisulfate [Plavix*] 75 mg PO DAILY 04/08/18 Collagenase [Santyl Ointment*] 1 fern TOP TID 04/08/18 Digoxin [Lanoxin*] 125 mcg PO DAILY 04/08/18 Folic Acid/Vitamin B Comp W-C [Nephro-Josh Tablet] 0.8 mg PO DAILY 04/08/18 Furosemide [Lasix] 40 mg PO BID 04/08/18 Hydralazine [Apresoline] 25 mg PO TID 04/08/18 Lisinopril [Prinivil*] 5 mg PO DAILY 04/08/18 Melatonin [Melatonin*] 3 mg PO BEDTIME 04/08/18 Metformin ER [Glucophage ER*] 500 mg PO BID 04/08/18 Mupirocin Cream [Bactroban 2% Cream*] 1 fern TOP BID 04/08/18 Nifedipine Xl [Procardia Xl*] 90 mg PO DAILY 04/08/18 Meropenem [Merrem 1 GM/100 ML NS IVPB] 1 gm IV BID #1 bag 04/12/18 New Medications: Meropenem [Merrem 1 GM/100 ML NS IVPB] 1 gm IV BID #1 bag Patient Discharge Instructions: Continue current meds, and Merepem 500mg IV q12H for 10 days Time spent managing pt's care (in minutes): 35
[2018-04-12] MEDS ORDERED: NACHLORIDE 0.45% 1,000 ML IV SCH (14:00)
== END 2018-04-12 15:33 | disposition home health service (06) | DRG 689 ==
LOC: ER 08:38 → ERHOLD 10:22 → 2ND 13:10 → OBSVTOIN 04-10 11:44
PROVIDERS: ADMIT Family Medicine; ATTEND Internal Medicine Hematology & Oncology
PROC: 02HV33Z Insertion of Infusion Device into Superior Vena Cava, Percutaneous Approach (ICD-10-PCS; principal; 2018-04-11)
DX: N30.00 Acute cystitis without hematuria (principal); L89.153 Pressure ulcer of sacral region, stage 3; L89.623 Pressure ulcer of left heel, stage 3; L89.613 Pressure ulcer of right heel, stage 3; I50.23 Acute on chronic systolic (congestive) heart failure; E43 Unspecified severe protein-calorie malnutrition; N17.9 Acute kidney failure, unspecified; I13.0 Hypertensive heart and chronic kidney disease with heart failure and stage 1 through stage 4 chronic kidney disease, or unspecified chronic kidney disease; N18.4 Chronic kidney disease, stage 4 (severe); E87.1 Hypo-osmolality and hyponatremia; E87.2 Acidosis; M86.671 Other chronic osteomyelitis, right ankle and foot; I25.10 Atherosclerotic heart disease of native coronary artery without angina pectoris; E11.621 Type 2 diabetes mellitus with foot ulcer; E11.649 Type 2 diabetes mellitus with hypoglycemia without coma; E11.22 Type 2 diabetes mellitus with diabetic chronic kidney disease; B96.1 Klebsiella pneumoniae [K. pneumoniae] as the cause of diseases classified elsewhere; E11.51 Type 2 diabetes mellitus with diabetic peripheral angiopathy without gangrene; D63.8 Anemia in other chronic diseases classified elsewhere; E11.69 Type 2 diabetes mellitus with other specified complication; E87.5 Hyperkalemia; F03.90 Unspecified dementia, unspecified severity, without behavioral disturbance, psychotic disturbance, mood disturbance, and anxiety; L97.519 Non-pressure chronic ulcer of other part of right foot with unspecified severity; I48.2 Chronic atrial fibrillation; R13.10 Dysphagia, unspecified; Z16.12 Extended spectrum beta lactamase (ESBL) resistance; Z79.02 Long term (current) use of antithrombotics/antiplatelets; Z79.82 Long term (current) use of aspirin; Z95.810 Presence of automatic (implantable) cardiac defibrillator; Z79.4 Long term (current) use of insulin; Z93.1 Gastrostomy status; Z95.1 Presence of aortocoronary bypass graft
CPT/HCPCS: 36415; 51702; 71045; 80048; 80053; 80076; 80162; 81001; 81003; 81015; 82043; 82550; 82553; 82570; 82962; 83735; 83880; 84100; 84484; 84550; 85025; 85610; 85730; 87070; 87077; 87086; 87088; 87186; 87205; 93005; 96360; 96361; 97163; 99285; G0378; J0360; J1650; J3590; J7030

== ENCOUNTER 2018-06-05 14:29 | Emergency (ER) | payer OTHER ==
--- OUTSIDE RECORDS SUMMARY | 2018-06-05 14:31 | XMS REPORT | Clinical Summary ---
:1935 Author Organization [facility] Address [address] [place] [address] Care Team Providers Name Role Phone Ester [...] Overview: Added automatically from request for surgery [id number] Encounters Date Type Specialty Care Team Description 11/12/2017 Anesthesia Event Gastroenterology Marija Can MD 11/12/2017 Procedure Pass Gastroenterology 11/12/2017 Surgery Gastroenterology Rosa, EGD WITH PEG Denny Khan MD INSERTION 11/07/2017 Anesthesia Event Intensive Care Junie Hodgson CRNA 11/07/2017 Procedure Pass Gastroenterology 11/07/2017 Surgery Gastroenterology Rosa EGD WITH control of Denny Khan MD bleeding 11/07/2017 Procedure Pass General Surgery 11/03/2017 [facility] Internal Ester Gama Upper GI bleed (Primary Dx ); - Encounter Medicine MD Mickey Toxic metabolic encephalopathy 11/13/2017 after 06/04/2017 Social History Tobacco Use Types Packs/Day Years [...] Procedure Name Priority Date/Time Associated Diagnosis Comments TRANSFUSE RED BLOOD Routine 04/09/2018 5:52 CELLS PM CDT TRANSFUSE RED BLOOD Routine 04/09/2018 5:52 CELLS PM CDT POC GLUCOSE Routine 11/13/2017 11:32 Results for this AM CDT procedure are in the results section. POC GLUCOSE Routine 11/13/2017 7:31 Results for this AM CDT procedure are in the results section. ZZESTIMATED GFR Routine 11/13/2017 4:45 Results for this [...] CDT procedure are in the results section. ZZESTIMATED GFR Routine 11/12/2017 6:20 Results for this [...] CDT procedure are in the results section. ZZESTIMATED GFR Routine 11/11/2017 4:10 Results for this [...] CDT procedure are in the results section. ZZESTIMATED GFR Routine 11/10/2017 4:30 Results for this [...] CDT procedure are in the results section. ZZESTIMATED GFR Routine 11/09/2017 4:05 Results for this [...] CDT procedure are in the results section. ZZESTIMATED GFR Routine 11/08/2017 2:45 Results for this [...] CDT procedure are in the results section. ZZESTIMATED GFR Routine 11/07/2017 5:10 Results for this [...] CDT procedure are in the results section. ZZESTIMATED GFR Routine 11/07/2017 6:20 Results for this [...] CDT procedure are in the results section. ZZESTIMATED GFR Routine 11/06/2017 6:25 Results for this [...] CDT procedure are in the results section. ZZESTIMATED GFR Routine 11/05/2017 4:35 Results for this [...] results section. TRANSFUSE RED BLOOD Routine 11/04/2017 4:04 CELLS PM CDT POC GLUCOSE Routine 11/04/2017 11:39 Results for [...] CDT procedure are in the results section. ZZESTIMATED GFR Routine 11/04/2017 4:40 Results for this [...] CDT procedure are in the results section. ZZESTIMATED GFR Routine 11/04/2017 4:40 Results for this [...] CDT procedure are in the results section. ZZESTIMATED GFR Routine 11/03/2017 12:55 Results for this [...] procedure are in the results section. after 06/04/2017 Results Transfuse RBC (04/09/2018 5:52 PM)Only the most recent of7 resultswithin the time period is included.POC glucose (11/13/2017 11:32 AM)Only the most recent of53 resultswithin the time period is included. POC glucose 164 (H) 65 - 99 mg/dL [facility] DEPARTMENT OF PATHOLOGY AND Comment: GENOMIC MEDICINE RN Notified Meter ID: [id number] Broiler Manager: Gennaro Tyler Performing Organization Address City/[facility] Phone Number [facility] DEPARTMENT OF PATHOLOGY [address] [place] [address] AND [employer] [facility] Estimated GFR (11/13/2017 4:45 AM)Only the most recent of13 resultswithin the time period is included. GFR Non Af Amer 19 (A) mL/min/1.73 m2 [facility] DEPARTMENT OF PATHOLOGY AND GENOMIC MEDICINE GFR Af Amer 24 (A) mL/min/1.73 m2 [facility] DEPARTMENT OF Comment: PATHOLOGY AND GENOMIC Chronic [...] Americans. Specimen Plasma specimen Performing Organization Address City/[facility] Phone Number [facility] DEPARTMENT OF PATHOLOGY [address] [place] [address]. [place] [address] AND [employer] [facility] CBC with platelet and differential (11/13/2017 4:45 AM)Only the most recent of12 resultswithin the time period is included. WBC 9.3 4.5 - 11.0 k/uL [facility] DEPARTMENT OF PATHOLOGY AND GENOMIC MEDICINE RBC 3.05 (L) 4.20 - 5.50 m/uL [facility] DEPARTMENT OF PATHOLOGY AND GENOMIC MEDICINE HGB 8.8 (L) 12.0 - 16.0 g/dL [facility] DEPARTMENT OF PATHOLOGY AND GENOMIC MEDICINE HCT 25.4 (L) 37.0 - 47.0 % [facility] DEPARTMENT OF PATHOLOGY AND GENOMIC MEDICINE MCV 83.3 82.0 - 100.0 fL [facility] DEPARTMENT OF PATHOLOGY AND GENOMIC MEDICINE MCH 28.9 27.0 - 34.0 pg [facility] DEPARTMENT OF PATHOLOGY AND GENOMIC MEDICINE MCHC 34.6 31.0 - 37.0 g/dL [facility] DEPARTMENT OF PATHOLOGY AND GENOMIC MEDICINE RDW - SD 49.3 37.0 - 55.0 fL [facility] DEPARTMENT OF PATHOLOGY AND GENOMIC MEDICINE MPV 11.4 (H) 6.9 - 11.0 fL [facility] DEPARTMENT OF PATHOLOGY AND GENOMIC MEDICINE Platelet count 62 (L) 150 - 400 K/uL [facility] DEPARTMENT OF PATHOLOGY AND GENOMIC MEDICINE Nucleated RBC 0.50 /100 WBC [facility] DEPARTMENT OF PATHOLOGY AND GENOMIC MEDICINE Neutrophils 76.3 (H) 39.0 - 69.0 % [facility] DEPARTMENT OF PATHOLOGY AND GENOMIC MEDICINE Lymphocytes 13.7 (L) 25.0 - 45.0 % [facility] DEPARTMENT OF PATHOLOGY AND GENOMIC MEDICINE Monocytes 7.3 0.0 - 10.0 % [facility] DEPARTMENT OF PATHOLOGY AND GENOMIC MEDICINE Eosinophils 1.5 0.0 - 5.0 % [facility] DEPARTMENT OF PATHOLOGY AND GENOMIC MEDICINE Basophils 0.1 0.0 - 1.0 % [facility] DEPARTMENT OF PATHOLOGY AND GENOMIC MEDICINE Immature granulocytes 1.1 (H) 0.0 - 1.0 % [facility] DEPARTMENT OF PATHOLOGY AND GENOMIC MEDICINE Specimen Blood Performing Organization Address City/State/Zipcode Phone Number [facility] DEPARTMENT OF PATHOLOGY [address] [place] [address] AND [employer] [facility] Comprehensive metabolic panel (11/13/2017 4:45 AM)Only the most recent of8 resultswithin the time period is included. Sodium 135 135 - 148 mEq/L [facility] DEPARTMENT OF PATHOLOGY AND GENOMIC MEDICINE Potassium 3.9 3.5 - 5.0 mEq/L [facility] DEPARTMENT OF PATHOLOGY AND GENOMIC MEDICINE Chloride 105 98 - 112 mEq/L [facility] DEPARTMENT OF PATHOLOGY AND GENOMIC MEDICINE CO2 17 (L) 24 - 31 mEq/L [facility] DEPARTMENT OF PATHOLOGY AND GENOMIC MEDICINE Anion gap 13 7 - 15 mEq/L [facility] DEPARTMENT OF Comment: PATHOLOGY AND GENOMIC Starting from November , anion gap calculation MEDICINE no longer incorporates potassium. Please note the change. BUN 51 (H) 8 - 23 mg/dL [facility] DEPARTMENT OF PATHOLOGY AND GENOMIC MEDICINE Creatinine 2.4 (H) 0.5 - 0.9 mg/dL [facility] DEPARTMENT OF PATHOLOGY AND GENOMIC MEDICINE Glucose 152 (H) 65 - 99 mg/dL [facility] DEPARTMENT OF PATHOLOGY AND GENOMIC MEDICINE Calcium 8.6 (L) 8.8 - 10.2 mg/dL [facility] DEPARTMENT OF PATHOLOGY AND GENOMIC MEDICINE Protein 5.1 (L) 6.3 - 8.3 g/dL [facility] DEPARTMENT OF PATHOLOGY AND GENOMIC MEDICINE Albumin 2.1 (L) 3.5 - 5.0 g/dL [facility] DEPARTMENT OF PATHOLOGY AND GENOMIC MEDICINE A/G ratio 0.7 0.7 - 3.8 [facility] DEPARTMENT OF PATHOLOGY AND GENOMIC MEDICINE Alkaline phosphatase 83 35 - 104 U/L [facility] DEPARTMENT OF PATHOLOGY AND GENOMIC MEDICINE AST 9 (L) 10 - 35 U/L [facility] DEPARTMENT OF PATHOLOGY AND GENOMIC MEDICINE ALT 6 5 - 50 U/L [facility] DEPARTMENT OF PATHOLOGY AND GENOMIC MEDICINE Total bilirubin 0.3 0.2 - 1.2 mg/dL [facility] DEPARTMENT OF PATHOLOGY AND GENOMIC MEDICINE Specimen Plasma specimen Performing Organization Address City/[facility] Phone Number [facility] DEPARTMENT OF PATHOLOGY [address] [place] [address] AND [facility] Prothrombin time with INR (11/12/2017 6:20 AM)Only the most recent of5 resultswithin the time period is included. Prothrombin time 19.0 (H) 12.0 - 15.0 sec [facility] DEPARTMENT OF PATHOLOGY AND GENOMIC MEDICINE INR 1.6 [facility] DEPARTMENT OF Comment: PATHOLOGY AND GENOMIC The International Normalized Ratio (INR) is a therapeutic MEDICINE monitoring tool for patients who are stable on oral anticoagulant therapy. An INR of 2.0-3.0 is suggested for deep vein thrombosis/pulmonary embolism. Specimen Blood Performing Organization Address [facility] Phone Number [facility] DEPARTMENT OF PATHOLOGY [address] [place] [address] AND [facility] Phosphorus level (11/11/2017 4:10 AM)Only the most recent of3 resultswithin the time period is included. Phosphorus 3.0 2.4 - 4.5 mg/dL [facility] DEPARTMENT OF PATHOLOGY AND GENOMIC [facility] Specimen Plasma specimen Performing Organization Address City/[facility] Phone Number [facility] DEPARTMENT OF PATHOLOGY [address] [place] [address] AND [facility] Magnesium level (11/11/2017 4:10 AM)Only the most recent of9 resultswithin the time period is included. Magnesium 1.9 1.6 - 2.4 mg/dL [facility] DEPARTMENT OF PATHOLOGY AND GENOMIC MEDICINE Specimen Plasma specimen Performing Organization Address City/[facility]/Zipcode Phone Number [facility] DEPARTMENT OF PATHOLOGY [address] [place] [address]. [place] [address] AND [facility] Basic metabolic panel (11/11/2017 4:10 AM)Only the most recent of5 resultswithin the time period is included. Sodium 140 135 - 148 mEq/L [facility] DEPARTMENT OF PATHOLOGY AND GENOMIC [facility] Potassium 4.4 3.5 - 5.0 mEq/L [facility] DEPARTMENT OF PATHOLOGY AND GENOMIC MEDICINE Chloride 110 98 - 112 mEq/L [facility] DEPARTMENT OF PATHOLOGY AND GENOMIC MEDICINE CO2 16 (L) 24 - 31 mEq/L [facility] DEPARTMENT OF PATHOLOGY AND GENOMIC [facility] Anion gap 14 7 - 15 mEq/L [facility] DEPARTMENT OF Comment: PATHOLOGY AND GENOMIC Starting from November , anion gap calculation MEDICINE no longer incorporates potassium. Please note the change. BUN 53 (H) 8 - 23 mg/dL [facility] DEPARTMENT OF PATHOLOGY AND GENOMIC [facility] Creatinine 2.3 (H) 0.5 - 0.9 mg/dL [facility] DEPARTMENT OF PATHOLOGY AND GENOMIC [facility] Glucose 227 (H) 65 - 99 mg/dL [facility] DEPARTMENT OF PATHOLOGY AND GENOMIC [facility] Calcium 8.4 (L) 8.8 - 10.2 mg/dL [facility] DEPARTMENT OF PATHOLOGY AND GENOMIC [facility] Specimen Plasma specimen Performing Organization Address [facility] Phone Number [facility] DEPARTMENT OF PATHOLOGY [address] [place] [address]. [place] [address] AND [facility] Hemoglobin & hematocrit (11/08/2017 10:05 AM)Only the most recent of4 resultswithin the time period is included. HGB 9.8 (L) 12.0 - 16.0 g/dL [facility] DEPARTMENT OF PATHOLOGY AND GENOMIC [facility] HCT 27.8 (L) 37.0 - 47.0 % [facility] DEPARTMENT OF PATHOLOGY AND [facility] Specimen Blood Performing Organization Address City/[facility]/Zipcode Phone Number [facility] PATHOLOGY [address] [place] [address] AND [facility] Transfuse fresh frozen plasma (11/08/2017 3:32 AM)Only the most recent of5 resultswithin the time period is included.Partial thromboplastin time, activated (11/08/2017 2:45 AM)Only the most recent of3 resultswithin the time period is included. PTT 37.7 (H) 23.0 - 36.0 sec [facility] DEPARTMENT OF Comment: PATHOLOGY AND [facility] PTT therapeutic range for unfractionated heparin is MEDICINE 61.0-112.0 seconds which corresponds to Anti-Xa 0.3-0.7 U/ml. Specimen Blood Performing Organization Address City/[facility] Phone Number [facility] DEPARTMENT OF PATHOLOGY [address] [place] [address]. [place] [address] AND [facility] Fibrinogen (11/08/2017 2:45 AM) Fibrinogen 210 200 - 450 mg/dL [facility] DEPARTMENT OF PATHOLOGY AND [facility] Specimen Blood Performing Organization Address City/[facility] Phone Number [facility] DEPARTMENT OF PATHOLOGY [address] [place] [address]. [place] [address] AND [facility] Lactic acid level (11/08/2017 2:45 AM)Only the most recent of3 resultswithin the time period is included. Lactic acid 1.6 0.5 - 2.2 mmol/L [facility] DEPARTMENT OF PATHOLOGY AND [facility] Specimen Plasma specimen Performing Organization Address City/[facility] Phone Number [facility] DEPARTMENT OF PATHOLOGY [address] [place] [address]. [place] [address] AND [facility] Ionized calcium (11/08/2017 2:45 AM) pH 7.42 [facility] DEPARTMENT OF PATHOLOGY AND [facility] Ionized calcium 1.18 1.11 - 1.32 mmol/L [facility] DEPARTMENT OF PATHOLOGY AND [facility] Specimen Plasma specimen Performing Organization Address [facility] Phone Number [facility] DEPARTMENT OF PATHOLOGY [address] [place] [address]. [place] [address] AND [facility] Transfuse platelets (11/07/2017 10:07 PM)Only the most recent of2 resultswithin the time period is included.Hemoglobin A1c (11/07/2017 5:10 PM) Hemoglobin A1C 5.9 4.0 - 6.0 % [facility] DEPARTMENT OF PATHOLOGY Comment: AND [facility] Less than 6% - Goal of therapy for Type II Diabetes Less than 7%-Goal of therapy for Type I Diabetes Less than 8%-Acceptable control for Type I or Type II Diabetes Greater than 8%-Unacceptable control; action indicated. ([id number]) Specimen Blood Performing Organization Address City/[facility]/Zipcode Phone Number [facility] DEPARTMENT OF PATHOLOGY [address] [place] [address] AND [employer] ECG 12 lead (11/07/2017 9:33 AM) Ventricular rate 85 [facility]USE Atrial rate 85 [facility] PA interval 112 [facility] QRSD interval 72 [facility] QT interval 358 [facility] QTC interval 426 [facility] P axis 1 0 [facility] QRS axis 1 127 [facility]USE T wave axis -39 [facility]USE EKG impression Electronic ventricular pacemaker-No previous [facility] MUSE ECGs available- Performing Organization Address [facility] Phone Number [facility] MUSE [address] [place] [address] Arterial blood gas (11/07/2017 8:22 AM) pH, arterial 7.38 7.35 - 7.45 [facility] DEPARTMENT OF PATHOLOGY AND GENOMIC MEDICINE pCO2, arterial 16 (LL)Comment: 35 - 45 mmHg [facility] DEPARTMENT OF Result called with PATHOLOGY AND GENOMIC read back to Margy Machado RN/5E 08:39 11/07/2017 slel pO2, arterial 132 (H) 80 - 90 mmHg [facility] DEPARTMENT OF PATHOLOGY AND GENOMIC MEDICINE Bicarbonate, arterial 8.9 (L) 21.0 - 28.0 mmol/L [facility] DEPARTMENT OF PATHOLOGY AND GENOMIC MEDICINE Base excess, arterial -16 (L) -2 - 2 mEq/L [facility] DEPARTMENT OF PATHOLOGY AND GENOMIC MEDICINE O2 saturation, arterial 98 95 - 100 % [facility] DEPARTMENT OF PATHOLOGY AND GENOMIC MEDICINE Specimen Blood Performing Organization Address City/[facility] Phone Number [facility] DEPARTMENT OF PATHOLOGY [address] [place] [address] AND [employer] Prepare RBC, 4 Units (11/07/2017 7:45 AM)Only the most recent of3 resultswithin the time period is included. Product name Red Blood Cells -1, [facility] DEPARTMENT OF Leukored PATHOLOGY AND GENOMIC MEDICINE Unit number [id number] [facility] DEPARTMENT OF PATHOLOGY AND GENOMIC MEDICINE Product code [id number] [facility] DEPARTMENT OF PATHOLOGY AND GENOMIC MEDICINE Dispense status Transfused [facility] DEPARTMENT OF PATHOLOGY AND GENOMIC MEDICINE Blood expiration date [facility] DEPARTMENT OF PATHOLOGY AND GENOMIC MEDICINE Blood type code 8400 [facility] DEPARTMENT OF PATHOLOGY AND GENOMIC MEDICINE Blood type AB POSITIVE [facility] DEPARTMENT OF PATHOLOGY AND GENOMIC MEDICINE Product name Red Blood Cells -1, [facility] DEPARTMENT OF Leukored PATHOLOGY AND GENOMIC MEDICINE Unit number [id number] [facility] DEPARTMENT OF PATHOLOGY AND GENOMIC MEDICINE Product code [id number] [facility] DEPARTMENT OF PATHOLOGY AND GENOMIC MEDICINE Dispense status Transfused [facility] DEPARTMENT OF PATHOLOGY AND GENOMIC MEDICINE Blood expiration date [facility] DEPARTMENT OF PATHOLOGY AND GENOMIC MEDICINE Blood type code 8400 [facility] DEPARTMENT OF PATHOLOGY AND GENOMIC MEDICINE Blood type AB POSITIVE [facility] DEPARTMENT OF PATHOLOGY AND GENOMIC MEDICINE Performing Organization Address City/[facility] Phone Number [facility] DEPARTMENT OF PATHOLOGY [address] [place] [address] AND [employer] MEDICINE Type and screen (11/07/2017 7:45 AM)Only the most recent of2 resultswithin the time period is included. ABO grouping AB [facility] DEPARTMENT OF PATHOLOGY AND GENOMIC MEDICINE Rh type POS [facility] DEPARTMENT OF PATHOLOGY AND GENOMIC MEDICINE Antibody screen (gel) NEG [facility] DEPARTMENT OF PATHOLOGY AND GENOMIC MEDICINE Performing Organization Address City/[facility] Phone Number [facility] DEPARTMENT OF PATHOLOGY [address] [place] [address] AND [employer] [facility] Occult blood, stool (11/06/2017 4:00 PM) Occult blood, stool Positive for Occult blood (A) [facility] DEPARTMENT OF Comment: PATHOLOGY AND GENOMIC Specimen Information MEDICINE Specimen Source: Stool Specimen Site: Nonpreserved Specimen Stool - Nonpreserved Performing Organization Address City/[facility] Phone Number [facility] DEPARTMENT OF PATHOLOGY [address] [place] [address] AND [employer] [facility] IR PICC Placement (11/06/2017 2:06 PM) [...] fluoroscopy. The needle was removed and a 5.5-Central African peel-away sheath was then placed. Under ultrasound guidance, documentation of vessel patency, needle access with permanent recording, and reporting are performed followed by placement of a sheath in the right basilic vein. A 38 cm long 5-Central African dual-lumen Power PICC was then deployed over [...] fluoroscopy. The needle was removed and a 5.5-Central [place] peel-away sheath was then placed. Under ultrasound guidance, documentation of vessel patency, needle access with permanent recording, and reporting are performed followed by placement of a sheath in the right basilic vein. A 38 cm long 5-Central African dual-lumen Power PICC was then deployed over [...] Technically successful PICC insertion. Performing Organization Address City/State/[facility] Phone Number ISABELLA [address] [place] [address] [place] Guided Vascular Access (11/06/2017 2:06 PM) Narrative Performed At Procedure: PICC insertion. [facility] Clinical indication: Need for long-term intravenous medication. [...] fluoroscopy. The needle was removed and a 5.5-Central African peel-away sheath was then placed. Under ultrasound guidance, documentation of vessel patency, needle access with permanent recording, and reporting are performed followed by placement of a sheath in the right basilic vein. A 38 cm long 5-Central African dual-lumen Power PICC was then deployed over [...] fluoroscopy. The needle was removed and a 5.5-Central African peel-away sheath was then placed. Under ultrasound guidance, documentation of vessel patency, needle access with permanent recording, and reporting are performed followed by placement of a sheath in the right basilic vein. A 38 cm long 5-Central African dual-lumen Power PICC was then deployed over [...] Organization Address City/State/Zipcode Phone Number MARIA INES MASON [address] [place] [address] duplex arterial lower extremity (11/05/2017 10:49 AM) Narrative Performed At EXAM: US DUPLEX ARTERIAL LOWER EXTREMITY BILATERAL ISABELLA HISTORY: peripheral arterial occlusive disease TECHNIQUE: Real-time [...] INDEX: Posterior tibial: Noncompressible. Dorsalis pedis: Noncompressible. [facility]-[id number] [facility] Guidelines: >1.4: Calcified Vessel 0.9-1.4: Normal [...] INDEX: Posterior tibial: Noncompressible. Dorsalis pedis: Noncompressible. [facility]-[id number] [facility] Guidelines: >1.4: Calcified Vessel 0.9-1.4: Normal 0.7-0.89: Mild PAD 0.51-0.69: Moderate PAD <0.5: Severe PAD Performing Organization Address [facility] Phone Number [facility] [address] [place] [address] XR Chest 1 Vw Portable (11/05/2017 5:40 AM)Only the most recent of2 resultswithin the time period is included. Narrative Performed At EXAMINATION:XR CHEST 1 [facility]:Pneum[facility] COMPARISON:Most Recent IMPRESSION: Heart and mediastinum are stable. Left-sided AICD again noted. Perihilar interstitial and patchy opacities without new infiltrates. Bones are osteopenic. [facility]-[id number] Procedure Note [facility], Radiology Results Incoming - 11/05/2017 7:31 AM CDT EXAMINATION: XR CHEST 1 VW PORTABLE CLINICAL HISTORY: Pneumonia COMPARISON: Most Recent IMPRESSION: Heart and mediastinum are stable. Left-sided AICD again noted. Perihilar interstitial and patchy opacities without new infiltrates. Bones are osteopenic. [facility]-[id number] Performing Organization Address [facility] Phone Number [employer] [address] [place] [address] Total iron binding capacity (11/05/2017 4:35 AM) Iron level 106 37 - 145 ug/dL [facility] DEPARTMENT OF PATHOLOGY AND GENOMIC MEDICINE Iron binding capacity 137 (L) 260 - 460 ug/dL [facility] DEPARTMENT OF PATHOLOGY AND GENOMIC MEDICINE % Saturation 77.4 (H) 15.0 - 38.0 % [facility] DEPARTMENT OF PATHOLOGY AND GENOMIC MEDICINE Specimen Plasma specimen Performing Organization Address [facility] Phone Number [facility] DEPARTMENT OF PATHOLOGY [address] [place] [address] AND [facility] Folate level (11/05/2017 4:35 AM) Folate 2.9 (L) 4.8 - 24.2 ng/mL [facility] DEPARTMENT OF PATHOLOGY AND GENOMIC MEDICINE Specimen Serum Performing Organization Address City/[facility] Phone Number [facility] DEPARTMENT OF PATHOLOGY AND [address] [place] [id number] [place] [address] Ferritin level (11/05/2017 4:35 AM) Ferritin level 439 (H) 13 - 150 ng/mL [facility] DEPARTMENT OF PATHOLOGY AND GENOMIC MEDICINE Specimen Plasma specimen Performing Organization Address City/[facility] Phone Number [facility] DEPARTMENT OF PATHOLOGY AND [address] [place] [address] Prepare platelet pheresis, 1 Units (11/04/2017 9:10 AM) Product name Apheresis PLT, Leukored IRR [facility] DEPARTMENT OF #2 PATHOLOGY AND GENOMIC MEDICINE Unit number [id number] [facility] DEPARTMENT OF PATHOLOGY AND GENOMIC MEDICINE Product code [id number] [facility] DEPARTMENT OF PATHOLOGY AND GENOMIC MEDICINE Dispense status Transfused [facility] DEPARTMENT OF PATHOLOGY AND GENOMIC MEDICINE Blood expiration date [facility] DEPARTMENT OF PATHOLOGY AND GENOMIC MEDICINE Blood type code 6200 [facility] DEPARTMENT OF PATHOLOGY AND GENOMIC MEDICINE Blood type A POSITIVE [facility] DEPARTMENT OF PATHOLOGY AND GENOMIC MEDICINE Performing Organization Address City/[facility] Phone Number [facility] DEPARTMENT OF PATHOLOGY [address] [place] [address] AND [employer] [facility] Prepare fresh frozen plasma, 4 Units (11/04/2017 9:10 AM) Product name Thawed Plasma [facility] DEPARTMENT OF PATHOLOGY AND GENOMIC MEDICINE Unit number [id number] [facility] DEPARTMENT OF PATHOLOGY AND GENOMIC MEDICINE Product code [id number] [facility] DEPARTMENT OF PATHOLOGY AND GENOMIC MEDICINE Dispense status Transfused [facility] DEPARTMENT OF PATHOLOGY AND GENOMIC MEDICINE Blood expiration date [facility] DEPARTMENT OF PATHOLOGY AND GENOMIC MEDICINE Blood type code 8400 [facility] DEPARTMENT OF PATHOLOGY AND GENOMIC MEDICINE Blood type AB POSITIVE [facility] DEPARTMENT OF PATHOLOGY AND GENOMIC MEDICINE Product name Thawed Plasma [facility] DEPARTMENT OF PATHOLOGY AND GENOMIC MEDICINE Unit number [id number] [facility] DEPARTMENT OF PATHOLOGY AND GENOMIC MEDICINE Product code [id number] [facility] DEPARTMENT OF PATHOLOGY AND GENOMIC MEDICINE Dispense status Transfused [facility] DEPARTMENT OF PATHOLOGY AND GENOMIC MEDICINE Blood expiration date [facility] DEPARTMENT OF PATHOLOGY AND GENOMIC MEDICINE Blood type code 8400 [facility] DEPARTMENT OF PATHOLOGY AND GENOMIC MEDICINE Blood type AB POSITIVE [facility] DEPARTMENT OF PATHOLOGY AND GENOMIC MEDICINE Product name Thawed Plasma [facility] DEPARTMENT OF PATHOLOGY AND GENOMIC MEDICINE Unit number [id number] [facility] DEPARTMENT OF PATHOLOGY AND GENOMIC MEDICINE Product code [id number] [facility] DEPARTMENT OF PATHOLOGY AND GENOMIC MEDICINE Dispense status Transfused [facility] DEPARTMENT OF PATHOLOGY AND GENOMIC MEDICINE Blood expiration date [facility] DEPARTMENT OF PATHOLOGY AND GENOMIC MEDICINE Blood type code 8400 [facility] DEPARTMENT OF PATHOLOGY AND GENOMIC MEDICINE Blood type AB POSITIVE [facility] DEPARTMENT OF PATHOLOGY AND GENOMIC MEDICINE Product name Thawed Plasma [facility] DEPARTMENT OF PATHOLOGY AND GENOMIC MEDICINE Unit number [id number] [facility] DEPARTMENT OF PATHOLOGY AND GENOMIC MEDICINE Product code [id number] [facility] DEPARTMENT OF PATHOLOGY AND GENOMIC MEDICINE Dispense status Transfused [facility] DEPARTMENT OF PATHOLOGY AND GENOMIC MEDICINE Blood expiration date [facility] DEPARTMENT OF PATHOLOGY AND GENOMIC MEDICINE Blood type code 8400 [facility] DEPARTMENT OF PATHOLOGY AND GENOMIC MEDICINE Blood type AB POSITIVE [facility] DEPARTMENT OF PATHOLOGY AND GENOMIC MEDICINE Specimen Blood Performing Organization Address City/[facility] Phone Number [facility] DEPARTMENT OF PATHOLOGY [address] [place] [address]. [place] [address] AND [facility] Thyroid stimulating hormone (11/04/2017 4:40 AM) TSH 2.28 0.27 - 4.20 uIU/mL [facility] DEPARTMENT OF PATHOLOGY AND GENOMIC MEDICINE Specimen Plasma specimen Performing Organization Address [facility] Phone Number [facility] DEPARTMENT OF PATHOLOGY [address] [place] [address]. [place] [address] AND [facility] Digoxin level (11/04/2017 4:40 AM) Digoxin 3.2 (HH) 0.8 - 2.0 ng/mL [facility] DEPARTMENT OF PATHOLOGY Comment: AND [employer] [facility] For valid Digoxin results, at least 6 hours should elapse between time of last dose and collection of blood. Otherwise, result may be false high. Therapeutic Range: 0.8 - 2.0 ng/mL Final results called to and read back by JOAN MATTHEWS 11/04/2017 05:58 [place] Specimen Plasma specimen Performing Organization Address [facility] Phone Number [facility] DEPARTMENT OF PATHOLOGY [address] [place] [address]. [place] [address] AND GENOMIC MEDICINE Urinalysis screen and microscopy, with reflex to culture (11/03/2017 2:45 PM) Specimen site [place] [facility] DEPARTMENT OF PATHOLOGY AND GENOMIC MEDICINE Color, UA Yellow [facility] DEPARTMENT OF PATHOLOGY AND GENOMIC MEDICINE Appearance, UA Turbid [facility] DEPARTMENT OF PATHOLOGY AND GENOMIC MEDICINE Specific gravity, UA 1.009 1.001 - 1.030 [facility] DEPARTMENT OF PATHOLOGY AND GENOMIC MEDICINE pH, UA 5.0 5.0 - 9.0 [facility] DEPARTMENT OF PATHOLOGY AND GENOMIC MEDICINE Protein, UA 1+ (A) Negative [facility] DEPARTMENT OF PATHOLOGY AND GENOMIC MEDICINE Glucose, UA Negative Negative [facility] DEPARTMENT OF PATHOLOGY AND GENOMIC MEDICINE Ketones, UA Trace (A) Negative [facility] DEPARTMENT OF PATHOLOGY AND GENOMIC MEDICINE Bilirubin, UA Negative Negative [facility] DEPARTMENT OF PATHOLOGY AND GENOMIC MEDICINE Blood, UA Moderate (A) Negative [facility] DEPARTMENT OF PATHOLOGY AND GENOMIC MEDICINE Nitrite, UA Negative Negative [facility] DEPARTMENT OF PATHOLOGY AND GENOMIC MEDICINE Urobilinogen, UA <2.0 <2.0 E.U./dL [facility] DEPARTMENT OF PATHOLOGY AND GENOMIC MEDICINE Leukocyte esterase, UA Large (A) Negative [facility] DEPARTMENT OF PATHOLOGY AND GENOMIC MEDICINE Epithelial cells, UA 7 /HPF [facility] DEPARTMENT OF PATHOLOGY AND GENOMIC MEDICINE WBC, UA >200 (H) 0 - 4 /HPF [facility] DEPARTMENT OF PATHOLOGY AND GENOMIC MEDICINE RBC, UA 84 (H) 0 - 2 /HPF [facility] DEPARTMENT OF PATHOLOGY AND GENOMIC MEDICINE Bacteria, UA Few None seen [facility] DEPARTMENT OF PATHOLOGY AND GENOMIC MEDICINE WBC clumps, UA Many (A) [facility] DEPARTMENT OF PATHOLOGY AND GENOMIC MEDICINE Yeast, UA Few (A) [facility] DEPARTMENT OF PATHOLOGY AND GENOMIC MEDICINE Yeast with pseudohyphae, UA None seen [facility] DEPARTMENT OF PATHOLOGY AND GENOMIC MEDICINE Hyaline casts, UA >20 (A) /LPF [facility] DEPARTMENT OF PATHOLOGY AND GENOMIC MEDICINE Specimen Urine Performing Organization Address City/State/Zipcode Phone Number [facility] DEPARTMENT OF PATHOLOGY [address] [place] [address] AND GENOMIC MEDICINE Gram stain (11/03/2017 2:45 PM) Gram stain result Many WBC's [facility] DEPARTMENT OF PATHOLOGY AND Many Yeast GENOMIC MEDICINE Comment: Specimen Information Specimen Source: Urine Specimen Site: [place] Specimen Urine - [place] Performing Organization Address City/State/Zipcode Phone Number [facility] DEPARTMENT OF PATHOLOGY AND [address] [place] [address] GENOMIC MEDICINE Urine culture (11/03/2017 2:45 PM) Urine culture isolate Rosy glabrata [facility] DEPARTMENT OF >10-5 cfu/ml PATHOLOGY AND GENOMIC The performance characteristics of this assay on this isolate MEDICINE were validated by the Microbiology Laboratory at [facility].This source has not been approved by the [...] BP >256 mcg/mL: Resistant Performing Organization Address [facility] Phone Number [facility] DEPARTMENT OF PATHOLOGY AND [address] [place] [address] GENOMIC MEDICINE Blood culture, aerobic & anaerobic (11/03/2017 1:12 AM)Only the most recent of2 resultswithin the time period is included. Blood culture isolate No growth after 5 days of incubation. [facility] DEPARTMENT OF Comment: PATHOLOGY AND GENOMIC Specimen Information MEDICINE Specimen Source: Blood Specimen Site: Hand Left Specimen Blood - Antecubital, right Performing Organization Address City/[facility] Phone Number [facility] DEPARTMENT OF PATHOLOGY AND [address] [place] [address] GENOMIC MEDICINE after 06/04/2017 Insurance Payer Benefit Plan / Group Subscriber ID Type Phone Address MEDICAID MEDICAID xxxxxxxxx Medicaid MEDICARE MEDICARE PART A AND B xxxxxxxxxx Medicare [place], [place] [phone] [place], [place] [phone]
--- OUTSIDE RECORDS SUMMARY | 2018-06-05 14:32 | XMS REPORT ---
:1935 [facility] Address [address] [place] [address] Dr. Rouse[address] [place] [address] Care Team Providers Name Role Phone HARDIK [...] Department ID 2017-09-10 2017-09-10 Outpatient Telma COOK [facility] [id number] 18:56:00 18:56:00 HARDIK 2017-07-01 2017-07-04 Inpatient DAWOOD CARVALHO TELE [id number] 22:15:00 15:46:00 [place] Results Test Description Test Time Test Comments Text Results Atomic Results Result Comments Sed Rate ESR ([place]) 2017-09-10 22:33:00 Test Item Value Reference Range Comments ESR (test code=HESR) 44 mm/Hr 0-20 CBC with [id number] 20:59:00 Test Item Value Reference Range Comments [...] Lymph Abs (test code=ALYMPH) 1.6 K/cumm 0.5-4.6 [place] Abs (test code=AMONO) 0.5 K/cumm 0.0-1.2 Eos Abs (test code=AEOS) 0.10 K/cumm 0.00-0.74 Baso Abs (test code=ABASO) 0.0 K/cumm 0.00-0.21 Hypochromic (test code=HYPO) Slight Lipid [id number] 20:09:00 Test Item Value Reference Range Comments Cholesterol (test 208 mg/dL 0-200 code=CHOL) Triglycerides (test 178 mg/dL 9-200 code=TRIG) HDL (test code=HDL) 45 mg/dL 50-60 Chol/HDL (test 4.6 Ratio 0.0-4.4 code=CHOLPHDL) LDL, Calculated (test 127 mg/dL 0-130 (NOTE)RISK OF HEART code=LDLC) DISEASEPublished by Filipino Heart AssociationAnalyte Optimal Boderline Increased RiskCHOL <200 200-239 >240TRIG <150 150-199 >200HDL Male: >60 <40HDL Female: >60 <50LDL <100 130-159 >160LDL NEAR OPTIMAL IS 100-129 VLDL (test code=VLDL) 36 mg/dL 5-40 LDL/HDL (test code=LDLPHDL) 3 [id number] 20:09:00 Test Item Value Reference Range Comments Lipase (test code=LIP) 31 U/L 13-60 [id number] 20:09:00 Test Item Value Reference Range Comments Amylase (test code=SHAKIR) 92 U/L 28-100 [id number] 20:09:00 Test Item Value Reference Range Comments NT ProBnp (test code=PBNP) 284[address] pg/mL 0-449 Comprehensive Metabolic [id number] 20:09:00 Test Item Value Reference Range Comments [...] race is not provided, and the patient isAfrican-Filipino, multiply by 1.212. If sex is not provided, and thepatient is female, multiply by 0.742. Results for patients <18 years ofage have not been validated by the MDRD study and should be interpretedwith caution.eGFR Result Interpretation:eGFR > or=60 is in the Normal RangeeGFR < 60 may mean kidney diseaseeGFR < 15 may mean kidney failureRanges recommended by the National Kidney Foundation,http://nkdep.nih .gov BLOOD [id number] 23:30:00 Test Item Value Reference Range Comments Culture Observations (test code=COB1) NO GROWTH AFTER 5 DAYS BLOOD [id number] 23:30:00 Test Item Value Reference Range Comments Culture Observations (test code=COB1) NO GROWTH AFTER 5 DAYS WOUND/SKIN/ABS.&GRAMSTAIN [id number] 08:20:00 Test Item Value Reference Range Comments [...] (test code=lev) ug/mL GLUCOMETER GLUCOSE- LAB USE [id number] 11:39:00 Test Item Value Reference Range Comments GLUCOMETER (test code=GMG) 113 mg/dL 70-100 DAILY MAINTENANCEMeter ID: [id number]: 9086 JAYY NAVARRO URINE [id number] 11:21:00 Test Item Value Reference Range Comments Isolate 1 (test code=ISO1) Pseudomonas aeruginosa piperacillin/tazobactam (test ug/mL code=tzp) ceftazidime (test code=santos) ug/mL cefepime (test code=fep) ug/mL meropenem (test code=mem) ug/mL gentamicin (test code=gm) ug/mL tobramycin (test code=tob) ug/mL levofloxacin (test code=lev) ug/mL WOUND/SKIN/ABS.&GRAMSTAIN [id number] 10:08:00 Test Item Value Reference Range Comments [...] (test code=lev) ug/mL GLUCOMETER GLUCOSE- LAB USE [id number] 05:13:00 Test Item Value Reference Range Comments GLUCOMETER (test code=GMG) 81 mg/dL 70-100 CLEANED METERMeter ID: [id number]: 5187 LETDWAYNE GOLDMAN PRO TIME AND [id number] 04:39:00 Test Item Value Reference Range Comments [...] Heparin. Order Code is ANTI-XA COMPREHENSIVE METABOLIC [id number] 04:32:00 Test Item Value Reference Range Comments [...] (test code=RBCMOR) NORMAL GLUCOMETER GLUCOSE- LAB USE [id number] 21:05:00 Test Item Value Reference Range Comments GLUCOMETER (test code=GMG) 116 mg/dL 70-100 Meter ID: [id number]: 5187 ROBERT GOLDMAN GLUCOMETER GLUCOSE- LAB USE [id number] 16:42:00 Test Item Value Reference Range Comments GLUCOMETER (test code=GMG) 247 mg/dL 70-100 DAILY MAINTENANCEMeter ID: [id number]: 9086 JAYY NAVARRO GLUCOMETER GLUCOSE- LAB USE [id number] 13:21:00 Test Item Value Reference Range Comments GLUCOMETER (test code=GMG) 206 mg/dL 70-100 DAILY MAINTENANCEMeter ID: [id number]: 9086 JAYY NAVARRO U/S KIDNEY (RENAL)2017-07-03 12:24:18RENAL ULTRASOUNDLocation Code: [id number] HISTORY: arfCOMPARISON: None.COMMENT: Real-time sonographic images of [...] acute abnormality.U/S ART FLW DOPPLER STELLA LOW [id number] 11:52:11BILATERAL LOWER EXTREMITY ARTERIAL DOPPLER :Location code: S5RZXEOBON HISTORY: Bilateral leg pain with peripheral vascular [...] RBC MORPH (test code=RBCMOR) NORMAL COMPREHENSIVE METABOLIC [id number] 06:16:00 Test Item Value Reference Range Comments [...] 8 IU/L <=78 GLUCOMETER GLUCOSE- LAB USE [id number] 05:30:00 Test Item Value Reference Range Comments GLUCOMETER (test code=GMG) 118 mg/dL 70-100 CLEANED METERMeter ID: [id number]: 2907 MARGE EverbridgeSU GLUCOMETER GLUCOSE- LAB USE [id number] 22:27:00 Test Item Value Reference Range Comments GLUCOMETER (test code=GMG) 158 mg/dL 70-100 Meter ID: [id number]: 2907 MARGE OWSU GLUCOMETER GLUCOSE- LAB USE [id number] 21:35:00 Test Item Value Reference Range Comments GLUCOMETER (test code=GMG) 63 mg/dL 70-100 Meter ID: [id number]: 2907 MARGE OWSU EOSINOPHIL SMEAR [id number] 19:44:00 Test Item Value Reference Range Comments EO URINE (test code=EOU) MODERATE /OIF NONE SEEN CREATININE RANDOM [id number] 19:30:00 Test Item Value Reference Range Comments CREA RAND (test code=CREAR) 47.8 mg/dL NRR (test code=NRR) * NO REFRENCE RANGE AVAILABLE FOR RANDOM SPECIMEN* PROTEIN URINE [id number] 19:18:00 Test Item Value Reference Range Comments HOWARD DOE (test code=ID) 76 mg/dL NRR (test code=NRR) * NO REFRENCE RANGE AVAILABLE FOR RANDOM SPECIMEN* GLUCOMETER GLUCOSE- LAB USE [id number] 15:24:00 Test Item Value Reference Range Comments GLUCOMETER (test code=GMG) 148 mg/dL 70-100 CLEANED METERMeter ID: [id number]: 4787 ISAAC YU GLUCOMETER GLUCOSE- LAB USE [id number] 12:43:00 Test Item Value Reference Range Comments GLUCOMETER (test code=GMG) 184 mg/dL 70-100 Meter ID: [id number]: 5683 NICOL SATYA CARDIAC [id number] 12:26:00 Test Item Value Reference Range Comments TROPONIN I (test code=A84) 0.098 ng/mL 0.000-0.045 CKMB (test code=A49) 5.0 ng/mL <=3.6 CPK (test code=32A) 58 IU/L 26-192 [id number] 12:23:00 Test Item Value Reference Range Comments Hb A1C % (test code=HBA) 8.8 % 4.2-6.3 URINALYSIS WITH [id number] 12:15:00 Test Item Value Reference Range Comments [...] NO RBC MORPH (test code=RBCMOR) NORMAL CARDIAC [id number] 05:42:00 Test Item Value Reference Range Comments TROPONIN I (test code=A84) 0.105 ng/mL 0.000-0.045 CKMB (test code=A49) 4.2 ng/mL <=3.6 CPK (test code=32A) 47 IU/L 26-192 CBC with [id number] 05:10:00 Test Item Value Reference Range Comments [...] Lymph Abs (test code=ALYMPH) 1.2 K/cumm 0.5-4.6 [place] Abs (test code=AMONO) 0.4 K/cumm 0.0-1.2 Eos Abs (test code=AEOS) 0.07 K/cumm 0.00-0.74 Baso Abs (test code=ABASO) 0.0 K/cumm 0.00-0.21 RBC Morphology (test Slight Hypochromia code=RBCMRPH) Platelet Est (test code=PLTEST) Adequate Platelets on Smear Glycosylated [id number] 03:33:00 Test Item Value Reference Range Comments HBA1c (test code=HBA1C) 9.5 % 4.8-5.9 Comprehensive Metabolic [id number] 00:02:00 Test Item Value Reference Range Comments [...] race is not provided, and the patient isAfrican-Filipino, multiply by 1.212. If sex is not provided, and thepatient is female, multiply by 0.742. Results for patients <18 years ofage have not been validated by the MDRD study and should be interpretedwith caution.eGFR Result Interpretation:eGFR > or=60 is in the Normal RangeeGFR < 60 may mean kidney diseaseeGFR < 15 may mean kidney failureRanges recommended by the National Kidney Foundation,http://nkdep.nih. gov Lipid [id number] 00:02:00 Test Item Value Reference Range Comments Cholesterol (test 251 mg/dL 0-200 code=CHOL) Triglycerides (test 201 mg/dL 9-200 code=TRIG) HDL (test code=HDL) 44 mg/dL 50-60 Chol/HDL (test 5.7 Ratio 0.0-4.4 code=CHOLPHDL) LDL, Calculated (test 167 0-130 (NOTE)RISK OF HEART code=LDLC) DISEASEPublished by Filipino Heart AssociationAnalyte Optimal Boderline Increased RiskCHOL <200 200-239 >240TRIG <150 150-199 >200HDL Male: >60 <40HDL Female: >60 <50LDL <100 130-159 >160LDL NEAR OPTIMAL IS 100-129 VLDL (test code=VLDL) 40 mg/dL 5-40 LDL/HDL (test code=LDLPHDL) 4
--- NOTE | 2018-06-05 15:10 | ER ---
Nurse's Notes [facility] Name: Karissa Frias Age: 83 yrs Sex: Female : 1935 Arrival Date: 06/05/2018 Time: 14:31 Bed 2 Private MD: Carlton Owen E Diagnosis: Urinary tract infection, site not specified;Escherichia coli [E. coli ] as the cause of diseases classified elsewhere;Klebsiella pneumoniae [K. pneumoniae] as the cause of diseases classified elsewhere;Proteus (mirabilis) (morganii) as the cause of diseases classified elsewhere Presentation: 06/05 14:35 Presenting complaint: gamble bag appears to be leaking and they are requesting a new dm5 bag. Transition of care: patient was not received from another setting of care. Onset of symptoms was June 05, 2018. 14:35 Method Of Arrival: Wheelchair dm5 14:35 Acuity: LAURO 4 dm5 Historical: - Allergies: 14:38 No Known Allergies; dm5 - PMHx: 14:38 Anemia; Atrial Fib; CAD; CHF; Diabetes - NIDDM; DYSPHAGIA; High Cholesterol; dm5 Hypertension; osteomyelitis; Renal Disease; - PSHx: 14:38 pacer/defib; PEG tube; triple bypass; dm5 - Immunization history:: Adult Immunizations up to date. - Social history:: Smoking status: Patient/guardian denies using tobacco. - Family history:: not pertinent. - Hospitalizations: : No recent hospitalization is reported. - History obtained from: daughter. Screenin:02 Abuse screen: Denies threats or abuse. Denies injuries from another. Nutritional dm5 screening: No deficits noted. Tuberculosis screening: No symptoms or risk factors identified. Fall Risk None identified. Assessment: 15:02 General: Appears in no apparent distress. Behavior is calm, cooperative. Pain: Denies dm5 pain. Neuro: Level of Consciousness is awake, alert, obeys commands. Respiratory: Airway is patent Respiratory effort is even, unlabored, relaxed, Respiratory pattern is regular, symmetrical. Derm: Skin is pink, warm \T\ dry. Vital Signs: 14:45 BP 157 / 74; Pulse 60; Resp 18; Temp 97.7; Pulse Ox 99% on R/A; Pain 0/10; dm5 ED Course: 14:31 Patient arrived in ED. mr 14:31 Carlton Owen MD is Private Physician. mr 14:36 Triage completed. dm5 14:39 Cindy Seo FNP [facility] kav 14:39 Jose Valverde MD is Attending Physician. kav 15:01 Nancie Stanley, RN is Primary Nurse. dm5 15:02 Patient has correct armband on for positive identification. Bed in low position. Adult dm5 w/ patient. 15:02 No provider procedures requiring assistance completed. Gamble cath removed intact, dm5 balloon deflated. 15:04 Gamble cath inserted, using sterile technique, 16 Fr., by ED staff, balloon inflated, to dm5 gravity drainage. Patient did not have IV access during this emergency room visit. 15:08 Carlton Owen MD is Referral Physician. kav Administered Medications: No medications were administered Outcome: 15:09 Discharge ordered by . kav 15:21 Patient left the ED. aa5 Signatures: Nancie Stanley, JOAN FRANCO dm Cindy Seo FNP [facility] magaly Marion Marin mr CamiloElaina RN RN aa5
--- NOTE | 2018-06-05 15:10 | EDPHYS ---
Physician Documentation [facility] Name: Karissa Frias Age: 83 yrs Sex: Female : 1935 Arrival Date: 06/05/2018 Time: 14:31 Bed 2 Private MD: Carlton Patel E ED Physician Jose Valverde HPI: 06/05 14:40 This 83 yrs old Black Female presents to ER via Wheelchair with complaints of Problem kav With Urinary Catheter. 14:59 The patient presents with leaking gamble catheter bag. Onset: The symptoms/episode kav began/occurred acutely, this morning. Modifying factors: The symptoms are alleviated by nothing, the symptoms are aggravated by urinating. Associated signs and symptoms: Pertinent positives: foul smelling urine. patient was seen in this ED on 05/30/18 for gamble catheter insertion per dr. patel. urine collected at that time but no prescription was written. . patient seen in this ED on 05/30/18 for gamble catheter insertion per verbal order dr. patel. urine sample was collected at this time but no prescription was written for uti. urine culture done on 05/30/18 with resuting 4 + gram negative rods: escherichia coli, proteus mirabilis, klebsiella pneumoniae. will write prescription for Augmentin 875 mg po bid x 7 days (# 14). Historical: - Allergies: 14:38 No Known Allergies; dm5 - PMHx: 14:38 Anemia; Atrial Fib; CAD; CHF; Diabetes - NIDDM; DYSPHAGIA; High Cholesterol; dm5 Hypertension; osteomyelitis; Renal Disease; - PSHx: 14:38 pacer/defib; PEG tube; triple bypass; dm5 - Immunization history:: Adult Immunizations up to date. - Social history:: Smoking status: Patient/guardian denies using tobacco. - Family history:: not pertinent. - Hospitalizations: : No recent hospitalization is reported. - History obtained from: daughter. ROS: 15:05 Constitutional: Negative for fever, chills, and weight loss, Eyes: Negative for injury, kav pain, redness, and discharge, ENT: Negative for injury, pain, and discharge, Neck: Negative for injury, pain, and swelling, Cardiovascular: Negative for chest pain, palpitations, and edema, Respiratory: Negative for shortness of breath, cough, wheezing, and pleuritic chest pain, Abdomen/GI: Negative for abdominal pain, nausea, vomiting, diarrhea, and constipation, Back: Negative for injury and pain, MS/Extremity: Negative for injury and deformity, Skin: Negative for injury, rash, and discoloration, Neuro: Negative for headache, weakness, numbness, tingling, and seizure, Psych: Negative for depression, anxiety, suicide ideation, homicidal ideation, and hallucinations, Allergy/Immunology: Negative for hives, rash, and allergies, Endocrine: Negative for neck swelling, polydipsia, polyuria, polyphagia, and marked weight changes, Hematologic/Lymphatic: Negative for swollen nodes, abnormal bleeding, and unusual bruising. 15:05 : Positive for foul smelling urine, leaking urinary catheter with foul smelling urine. Exam: 15:05 Constitutional: This is a well developed, well nourished patient who is awake, alert, kav and in no acute distress. Head/Face: Normocephalic, atraumatic. Eyes: Pupils equal round and reactive to light, extra-ocular motions intact. Lids and lashes normal. Conjunctiva and sclera are non-icteric and not injected. Cornea within normal limits. Periorbital areas with no swelling, redness, or edema. ENT: Nares patent. No nasal discharge, no septal abnormalities noted. Tympanic membranes are normal and external auditory canals are clear. Oropharynx with no redness, swelling, or masses, exudates, or evidence of obstruction, uvula midline. Mucous membranes moist. Neck: Trachea midline, no thyromegaly or masses palpated, and no cervical lymphadenopathy. Supple, full range of motion without nuchal rigidity, or vertebral point tenderness. No Meningismus. Chest/axilla: Normal chest wall appearance and motion. Nontender with no deformity. No lesions are appreciated. Cardiovascular: Regular rate and rhythm with a normal S1 and S2. No gallops, murmurs, or rubs. Normal PMI, no JVD. No pulse deficits. Respiratory: Lungs have equal breath sounds bilaterally, clear to auscultation and percussion. No rales, rhonchi or wheezes noted. No increased work of breathing, no retractions or nasal flaring. Abdomen/GI: Soft, non-tender, with normal bowel sounds. No distension or tympany. No guarding or rebound. No evidence of tenderness throughout. Back: No spinal tenderness. No costovertebral tenderness. Full range of motion. Skin: Warm, dry with normal turgor. Normal color with no rashes, no lesions, and no evidence of cellulitis. MS/ Extremity: Pulses equal, no cyanosis. Neurovascular intact. Full, normal range of motion. Neuro: Awake and alert, GCS 15, oriented to person, place, time, and situation. Cranial nerves II-XII grossly intact. Motor strength 5/5 in all extremities. Sensory grossly intact. Cerebellar exam normal. Normal gait. Psych: Awake, alert, with orientation to person, place and time. Behavior, mood, and affect are within normal limits. 15:05 : CVA tenderness, is absent, Bladder: is normal, a gamble is noted, to gravity drainage. Vital Signs: 14:45 BP 157 / 74; Pulse 60; Resp 18; Temp 97.7; Pulse Ox 99% on R/A; Pain 0/10; dm5 MDM: 14:40 Medical screening is not applicable. kav 15:05 Differential diagnosis: urinary tract infection. Data reviewed: vital signs, nurses kav notes. 15:05 Physician consultation: Carlton Patel MD was called at 15:07, regarding patient's kav condition, uti with gram negative rods: ecoli, proteus mirabillis, klebsiella pneumoniae. 06/05 15:02 Order name: Gamble; Complete Time: 15:09 dm5 Administered Medications: No medications were administered Disposition: 18:50 Co-signature as Attending Physician, Jose Valverde MD. rn Disposition: 06/05/18 15:09 Discharged to Home. Impression: Urinary tract infection, site not specified, Escherichia coli [E. coli ] as the cause of diseases classified elsewhere, Klebsiella pneumoniae [K. pneumoniae] as the cause of diseases classified elsewhere, Proteus (mirabilis) (morganii) as the cause of diseases classified elsewhere. - Condition is Stable. - Discharge Instructions: Urinary Tract Infection, Adult, [id number]. - Prescriptions for Augmentin 875- 125 mg Oral Tablet - take 1 tablet by ORAL route every 12 hours for 7 days; 14 tablet. - Medication Reconciliation Form, Thank You Letter, Antibiotic Education, Prescription Opioid Use form. - Follow up: Carlton Patel MD; When: 7 - 10 days; Reason: Recheck today's complaints, Continuance of care, Re-evaluation by your physician, repeat urine analysis. - Problem is new. - Symptoms have improved. Signatures: Nancie Stanley, RN RN dm5 Cindy Seo, PRESS OPERATOR HEAVY DUTY PRESS OPERATOR HEAVY DUTY Jose Munguia MD MD rn Calderon, Audri, RN RN aa5 Corrections: (The following items were deleted from the chart) 15:21 15:09 06/05/2018 15:09 Discharged to Home. Impression: Urinary tract infection, site aa5 not specified; Escherichia coli [E. coli ] as the cause of diseases classified elsewhere; Klebsiella pneumoniae [K. pneumoniae] as the cause of diseases classified elsewhere; Proteus (mirabilis) (morganii) as the cause of diseases classified elsewhere. Condition is Stable. Forms are Medication Reconciliation Form, Thank You Letter, Antibiotic Education, Prescription Opioid Use. Follow up: Carlton Patel; When: 7 - 10 days; Reason: Recheck today's complaints, Continuance of care, Re-evaluation by your physician, repeat urine analysis. Problem is new. Symptoms have improved. andra
== END 2018-06-05 15:21 | disposition home or self-care (01) ==
LOC: ER 14:29
DX: N39.0 Urinary tract infection, site not specified (principal); B96.20 Unspecified Escherichia coli [E. coli] as the cause of diseases classified elsewhere; B96.1 Klebsiella pneumoniae [K. pneumoniae] as the cause of diseases classified elsewhere; B96.4 Proteus (mirabilis) (morganii) as the cause of diseases classified elsewhere; I10 Essential (primary) hypertension
CPT/HCPCS: 51702; 99283

== ENCOUNTER 2018-07-14 09:41 | Emergency (ER) | payer OTHER ==
--- OUTSIDE RECORDS SUMMARY | 2018-07-14 09:44 | XMS REPORT | Clinical Summary ---
:1935 Author Organization [facility] Address [address] [place] [address] Care Team Providers Name Role Phone Ester Gama MD Primary Care Provider Allergies No Known Allergies Medications Medication Sig Dispensed Refills Start Date End Date Status carvedilol (COREG) Take 12.5 mg by 0 Active 12.5 MG tablet mouth 2 (two) times a day with meals. clopidogrel Take 75 mg by 0 Active (PLAVIX) 75 mg mouth daily. tablet digOXIN (LANOXIN) Take 125 mcg by 0 Active 125 mcg tablet mouth daily. furosemide (LASIX) Take 40 mg by 0 Active 40 mg tablet mouth 2 (two) times a day. megestrol (MEGACE) Take 800 mg by 0 Active 400 mg/10 mL (10 mouth daily. mL) suspension metFORMIN Take 500 mg by 0 Active (GLUCOPHAGE) 500 mouth 2 (two) mg tablet times a day with meals. NIFEdipine CC Take 90 mg by 0 Active (ADALAT CC) 90 MG mouth daily. 24 hr tablet collagenase Apply 1 0 Active (SANTYL) ointment application topically daily. valsartan (DIOVAN) Take 160 mg by 0 Active 160 MG tablet mouth daily. aspirin (ECOTRIN) Take 81 mg by 0 Active 81 MG enteric mouth daily. coated tablet loperamide Take 2 mg by 0 Active (IMODIUM) 2 mg mouth as needed capsule for diarrhea. pantoprazole 4 Infuse 10 mL (40 1 each 0 11/13/2017 Active mg/mL in sodium mg total) into a chloride injection venous catheter daily before breakfast. lisinopril Take 5 mg by 0 Discontinued (PRINIVIL,ZESTRIL) mouth daily. 8 5 mg tablet cefepime IVPB 1 Infuse 1 g into a 0 11/12/2017 04/24/201 gram Mini-Bag Plus venous catheter 8 every 12 (twelve) hours for 14 days. Active Problems Problem Noted Date Toxic metabolic encephalopathy 11/03/2017 Upper GI bleed 11/02/2017 Overview: Added automatically from request for surgery [id number] Encounters Date Type Specialty Care Team Description 11/12/2017 Anesthesia Event Gastroenterology Marija Can MD 11/12/2017 Surgery Gastroenterology Rosa, EGD WITH PEG Denny Khan MD INSERTION 11/07/2017 Anesthesia Event Intensive Care Junie Hodgson CRNA 11/07/2017 Surgery Gastroenterology [place] EGD WITH control of Denny Khan MD bleeding 11/03/[address] [facility] Internal NatanShawn arriazalehigh Upper GI bleed (Primary Dx ); - Encounter Medicine MD Mickey Toxic metabolic encephalopathy 11/13/2017 after 07/13/2017 Social History Tobacco Use Types Packs/Day Years Used Date Never Smoker Smokeless Tobacco: Never Used Alcohol Use Drinks/Week oz/Week Comments No Sex Assigned at Date Recorded Not on file Job Start Date Occupation Industry Not on file Not on file Not on file Travel History Travel Start Travel End No recent travel history available. Last Filed Vital Signs Vital Sign Reading [...] Due Date Last Done Comments SHINGRIX VACCINE (1 of 2) 1987 ZOSTER VACCINE 1997 PNEUMOCOCCAL POLYSACCHARIDE VACCINE [...] in the results section. PREPARE RBC Timed 11/07/2017 7:45 Results for [...] procedure are in the results section. after 07/13/2017 Results Transfuse RBC (04/09/2018 5:52 PM CDT)Only the most recent of7 resultswithin the time period is included.POC glucose (11/13/2017 11:32 AM CDT)Only the most recent of53 resultswithin the time period is included. POC glucose 164 (H) 65 - 99 mg/dL [facility] DEPARTMENT OF PATHOLOGY AND Comment: GENOMIC MEDICINE RN Notified Meter ID: [id number] Wellness Trainer: Gennaro Tyler Performing Organization Address City/State/Zipcode Phone Number [facility] DEPARTMENT OF PATHOLOGY [address] [place] [address] AND [employer] [facility] Estimated GFR (11/13/2017 4:45 AM CDT)Only the most recent of13 resultswithin the time period is included. GFR Non Af Amer 19 (A) mL/min/1.73 m2 [facility] DEPARTMENT OF PATHOLOGY AND GENOMIC MEDICINE GFR Af Amer 24 (A) mL/min/1.73 m2 [facility] DEPARTMENT OF Comment: PATHOLOGY AND GENOMIC Chronic [...] Americans. Specimen Plasma specimen Performing Organization Address City/[facility]/Zipcode Phone Number [facility] DEPARTMENT OF PATHOLOGY [address] [facility] [place] [address] AND [employer] CBC with platelet and differential (11/13/2017 4:45 AM CDT)Only the most recent of12 resultswithin the time period is included. WBC 9.3 4.5 - 11.0 k/uL [facility] DEPARTMENT OF PATHOLOGY AND GENOMIC MEDICINE RBC 3.05 (L) 4.20 - 5.50 m/uL [facility] DEPARTMENT OF PATHOLOGY AND GENOMIC MEDICINE HGB 8.8 (L) 12.0 - 16.0 g/dL [facility] DEPARTMENT OF PATHOLOGY AND GENOMIC MEDICINE HCT 25.4 (L) 37.0 - 47.0 % [facility] DEPARTMENT OF PATHOLOGY AND GENOMIC MEDICINE MCV 83.3 82.0 - 100.0 fL [facility] DEPARTMENT OF PATHOLOGY AND GENOMIC MEDICINE MCH 28.9 27.0 - 34.0 pg [facility] DEPARTMENT OF PATHOLOGY AND GENOMIC MEDICINE MCHC 34.6 31.0 - 37.0 g/dL [facility] DEPARTMENT OF PATHOLOGY AND GENOMIC MEDICINE RDW - SD 49.3 37.0 - 55.0 fL [facility] DEPARTMENT OF PATHOLOGY AND GENOMIC MEDICINE MPV 11.4 (H) 6.9 - 11.0 fL [facility] DEPARTMENT OF PATHOLOGY AND GENOMIC MEDICINE Platelet count 62 (L) 150 - 400 K/uL [facility] DEPARTMENT OF PATHOLOGY AND GENOMIC MEDICINE Nucleated RBC 0.50 /100 WBC [facility] DEPARTMENT OF PATHOLOGY AND GENOMIC MEDICINE Neutrophils 76.3 (H) 39.0 - 69.0 % [facility] DEPARTMENT OF PATHOLOGY AND GENOMIC MEDICINE Lymphocytes 13.7 (L) 25.0 - 45.0 % [facility] DEPARTMENT OF PATHOLOGY AND GENOMIC MEDICINE Monocytes 7.3 0.0 - 10.0 % [facility] DEPARTMENT OF PATHOLOGY AND GENOMIC MEDICINE Eosinophils 1.5 0.0 - 5.0 % [facility] DEPARTMENT OF PATHOLOGY AND GENOMIC MEDICINE Basophils 0.1 0.0 - 1.0 % [facility] DEPARTMENT OF PATHOLOGY AND GENOMIC MEDICINE Immature granulocytes 1.1 (H) 0.0 - 1.0 % [facility] DEPARTMENT OF PATHOLOGY AND GENOMIC MEDICINE Specimen Blood Performing Organization Address City/State/Zipcode Phone Number [facility] DEPARTMENT OF PATHOLOGY [address] [place] [address] AND [employer] [facility] Comprehensive metabolic panel (11/13/2017 4:45 AM CDT)Only the most recent of8 resultswithin the time period is included. Sodium 135 135 - 148 mEq/L [facility] DEPARTMENT OF PATHOLOGY AND GENOMIC MEDICINE Potassium 3.9 3.5 - 5.0 mEq/L [facility] DEPARTMENT OF PATHOLOGY AND GENOMIC MEDICINE Chloride 105 98 - 112 mEq/L [facility] DEPARTMENT OF PATHOLOGY AND GENOMIC MEDICINE CO2 17 (L) 24 - 31 mEq/L [facility] DEPARTMENT OF PATHOLOGY AND GENOMIC MEDICINE Anion gap 13 7 - 15 mEq/L [facility] DEPARTMENT OF Comment: PATHOLOGY AND GENOMIC Starting from November , anion gap calculation MEDICINE no longer incorporates potassium. Please note the change. BUN 51 (H) 8 - 23 mg/dL [facility] DEPARTMENT OF PATHOLOGY AND GENOMIC MEDICINE Creatinine 2.4 (H) 0.5 - 0.9 mg/dL [facility] DEPARTMENT OF PATHOLOGY AND GENOMIC MEDICINE Glucose 152 (H) 65 - 99 mg/dL [facility] DEPARTMENT OF PATHOLOGY AND GENOMIC MEDICINE Calcium 8.6 (L) 8.8 - 10.2 mg/dL [facility] DEPARTMENT OF PATHOLOGY AND GENOMIC MEDICINE Protein 5.1 (L) 6.3 - 8.3 g/dL [facility] DEPARTMENT OF PATHOLOGY AND GENOMIC MEDICINE Albumin 2.1 (L) 3.5 - 5.0 g/dL [facility] DEPARTMENT OF PATHOLOGY AND GENOMIC MEDICINE A/G ratio 0.7 0.7 - 3.8 [facility] DEPARTMENT OF PATHOLOGY AND GENOMIC MEDICINE Alkaline phosphatase 83 35 - 104 U/L [facility] DEPARTMENT OF PATHOLOGY AND GENOMIC MEDICINE AST 9 (L) 10 - 35 U/L [facility] DEPARTMENT OF PATHOLOGY AND GENOMIC MEDICINE ALT 6 5 - 50 U/L [facility] DEPARTMENT OF PATHOLOGY AND GENOMIC MEDICINE Total bilirubin 0.3 0.2 - 1.2 mg/dL [facility] DEPARTMENT OF PATHOLOGY AND GENOMIC MEDICINE Specimen Plasma specimen Performing Organization Address City/[facility] Phone Number [facility] DEPARTMENT OF PATHOLOGY [address] [place] [address] AND [facility] Prothrombin time with INR (11/12/2017 6:20 AM CDT)Only the most recent of5 resultswithin the time period is included. Prothrombin time 19.0 (H) 12.0 - 15.0 sec [facility] DEPARTMENT OF PATHOLOGY AND GENOMIC MEDICINE INR 1.6 [facility] DEPARTMENT OF Comment: PATHOLOGY AND GENOMIC The International Normalized Ratio (INR) is a therapeutic MEDICINE monitoring tool for patients who are stable on oral anticoagulant therapy. An INR of 2.0-3.0 is suggested for deep vein thrombosis/pulmonary embolism. Specimen Blood Performing Organization Address [facility] Hospitalcosd Phone Number [facility] DEPARTMENT OF PATHOLOGY [address] [place] [address] AND [facility] Phosphorus level (11/11/2017 4:10 AM CDT)Only the most recent of3 resultswithin the time period is included. Phosphorus 3.0 2.4 - 4.5 mg/dL [facility] DEPARTMENT OF PATHOLOGY AND GENOMIC MEDICINE Specimen Plasma specimen Performing Organization Address City/[facility] Hospitalcode Phone Number [facility] DEPARTMENT OF PATHOLOGY [address] [place] [address] AND [facility] Magnesium level (11/11/2017 4:10 AM CDT)Only the most recent of9 resultswithin the time period is included. Magnesium 1.9 1.6 - 2.4 mg/dL [facility] DEPARTMENT OF PATHOLOGY AND GENOMIC MEDICINE Specimen Plasma specimen Performing Organization Address City/[facility]/Zipcode Phone Number [facility] DEPARTMENT OF PATHOLOGY [address] [place] [address] AND [facility] Basic metabolic panel (11/11/2017 4:10 AM CDT)Only the most recent of5 resultswithin the time period is included. Sodium 140 135 - 148 mEq/L [facility] DEPARTMENT OF PATHOLOGY AND GENOMIC [facility] Potassium 4.4 3.5 - 5.0 mEq/L [facility] DEPARTMENT OF PATHOLOGY AND GENOMIC MEDICINE Chloride 110 98 - 112 mEq/L [facility] DEPARTMENT OF PATHOLOGY AND GENOMIC MEDICINE CO2 16 (L) 24 - 31 mEq/L [facility] DEPARTMENT OF PATHOLOGY AND GENOMIC [facility] Anion gap 14 7 - 15 mEq/L [facility] DEPARTMENT OF Comment: PATHOLOGY AND GENOMIC Starting from November , anion gap calculation MEDICINE no longer incorporates potassium. Please note the change. BUN 53 (H) 8 - 23 mg/dL [facility] DEPARTMENT OF PATHOLOGY AND GENOMIC MEDICINE Creatinine 2.3 (H) 0.5 - 0.9 mg/dL [facility] DEPARTMENT OF PATHOLOGY AND GENOMIC [facility] Glucose 227 (H) 65 - 99 mg/dL [facility] DEPARTMENT OF PATHOLOGY AND GENOMIC [facility] Calcium 8.4 (L) 8.8 - 10.2 mg/dL [facility] DEPARTMENT OF PATHOLOGY AND [employer] [facility] Specimen Plasma specimen Performing Organization Address [facility] Hospitalcode Phone Number [facility] DEPARTMENT OF PATHOLOGY [address] [place] [address] AND [facility] Hemoglobin & hematocrit (11/08/2017 10:05 AM CDT)Only the most recent of4 resultswithin the time period is included. HGB 9.8 (L) 12.0 - 16.0 g/dL [facility] DEPARTMENT OF PATHOLOGY AND [facility] HCT 27.8 (L) 37.0 - 47.0 % [facility] DEPARTMENT OF PATHOLOGY [facility] Specimen Blood Performing Organization Address City/[facility]/[place] [address] AND [facility] Transfuse fresh frozen plasma (11/08/2017 3:32 AM CDT)Only the most recent of5 resultswithin the time period is included.Partial thromboplastin time, activated (11/08/2017 2:45 AM CDT)Only the most recent of3 resultswithin the time period is included. PTT 37.7 (H) 23.0 - 36.0 sec [facility] DEPARTMENT OF Comment: PATHOLOGY AND [facility] PTT therapeutic range for unfractionated heparin is MEDICINE 61.0-112.0 seconds which corresponds to Anti-Xa 0.3-0.7 U/ml. Specimen Blood Performing Organization Address [facility] Hospitalcosd Phone Number [facility] DEPARTMENT OF PATHOLOGY [address] [place] [address]. [place] [address] AND [facility] Fibrinogen (11/08/2017 2:45 AM CDT) Fibrinogen 210 200 - 450 mg/dL [facility] DEPARTMENT OF PATHOLOGY AND [facility] Specimen Blood Performing Organization Address [facility] Hospitalcode Phone Number [facility] DEPARTMENT OF PATHOLOGY [address] [place] [address]. [place] [address] AND [facility] Lactic acid level (11/08/2017 2:45 AM CDT)Only the most recent of3 resultswithin the time period is included. Lactic acid 1.6 0.5 - 2.2 mmol/L [facility] DEPARTMENT OF PATHOLOGY AND [facility] Specimen Plasma specimen Performing Organization Address [facility] Phone Number [facility] DEPARTMENT OF PATHOLOGY [address] [place] [address]. [place] [address] AND [facility] Ionized calcium (11/08/2017 2:45 AM CDT) pH 7.42 [facility] DEPARTMENT OF PATHOLOGY AND [facility] MEDICINE Ionized calcium 1.18 1.11 - 1.32 mmol/L [facility] DEPARTMENT OF PATHOLOGY AND [facility] Specimen Plasma specimen Performing Organization Address [facility] Phone Number [facility] DEPARTMENT OF PATHOLOGY [address] [place] [address]. [place] [address] AND [facility] Transfuse platelets (11/07/2017 10:07 PM CDT)Only the most recent of2 resultswithin the time period is included.Hemoglobin A1c (11/07/2017 5:10 PM CDT) Hemoglobin A1C 5.9 4.0 - 6.0 % [facility] DEPARTMENT OF PATHOLOGY Comment: AND [employer] MEDICINE Less than 6% - Goal of therapy for Type II Diabetes Less than 7%-Goal of therapy for Type I Diabetes Less than 8%-Acceptable control for Type I or Type II Diabetes Greater than 8%-Unacceptable control; action indicated. ([id number]) Specimen Blood Performing Organization Address City/[facility] Hospitalcode Phone Number [facility] DEPARTMENT OF PATHOLOGY [address] [place] [address] AND [employer] ECG 12 lead (11/07/2017 9:33 AM CDT) Ventricular rate 85 [facility] Atrial rate 85 [facility] UT interval 112 [facility] QRSD interval 72 [facility] QT interval 358 [facility] QTC interval 426 [facility] P axis 1 0 [facility] QRS axis 1 127 [facility] T wave axis -39 [facility]USE EKG impression Electronic ventricular pacemaker-No previous [facility] MUSE ECGs available- Performing Organization Address [facility] Hospitalcosd Phone Number [facility] MUSE [address] [place] [address] Arterial blood gas (11/07/2017 8:22 AM CDT) pH, arterial 7.38 7.35 - 7.45 [facility] DEPARTMENT OF PATHOLOGY AND GENOMIC MEDICINE pCO2, arterial 16 (LL)Comment: 35 - 45 mmHg [facility] DEPARTMENT OF Result called with PATHOLOGY AND GENOMIC read back to Margy Machado RN/5E 08:39 11/07/2017 slel pO2, arterial 132 (H) 80 - 90 mmHg [facility] DEPARTMENT OF PATHOLOGY AND GENOMIC MEDICINE Bicarbonate, arterial 8.9 (L) 21.0 - 28.0 mmol/L [facility] DEPARTMENT OF PATHOLOGY AND GENOMIC MEDICINE Base excess, arterial -16 (L) -2 - 2 mEq/L [facility] DEPARTMENT OF PATHOLOGY AND GENOMIC MEDICINE O2 saturation, arterial 98 95 - 100 % [facility] DEPARTMENT OF PATHOLOGY AND GENOMIC MEDICINE Specimen Blood Performing Organization Address [facility] Hospitalcode Phone Number [facility] DEPARTMENT OF PATHOLOGY [address] [place] [address] AND [employer] Prepare RBC, 4 Units (11/07/2017 7:45 AM CDT)Only the most recent of3 resultswithin the time period is included. Product name Red Blood Cells -1, [facility] DEPARTMENT OF Leukored PATHOLOGY AND GENOMIC MEDICINE Unit number [id number] [facility] DEPARTMENT OF PATHOLOGY AND GENOMIC MEDICINE Product code [id number] [facility] DEPARTMENT OF PATHOLOGY AND GENOMIC MEDICINE Dispense status Transfused [facility] DEPARTMENT OF PATHOLOGY AND GENOMIC MEDICINE Blood expiration date [facility] DEPARTMENT OF PATHOLOGY AND GENOMIC MEDICINE Blood type code 8400 [facility] DEPARTMENT OF PATHOLOGY AND GENOMIC MEDICINE Blood type AB POSITIVE [facility] DEPARTMENT OF PATHOLOGY AND GENOMIC MEDICINE Product name Red Blood Cells -1, [facility] DEPARTMENT OF Leukored PATHOLOGY AND GENOMIC MEDICINE Unit number [id number] [facility] DEPARTMENT OF PATHOLOGY AND GENOMIC MEDICINE Product code [id number] [facility] DEPARTMENT OF PATHOLOGY AND GENOMIC MEDICINE Dispense status Transfused [facility] DEPARTMENT OF PATHOLOGY AND GENOMIC MEDICINE Blood expiration date [facility] DEPARTMENT OF PATHOLOGY AND GENOMIC MEDICINE Blood type code 8400 [facility] DEPARTMENT OF PATHOLOGY AND GENOMIC MEDICINE Blood type AB POSITIVE [facility] DEPARTMENT OF PATHOLOGY AND GENOMIC MEDICINE Performing Organization Address City/[facility] Hospitalcosd Phone Number [facility] DEPARTMENT OF PATHOLOGY [address] [place] [address] AND [employer] [facility] Type and screen (11/07/2017 7:45 AM CDT)Only the most recent of2 resultswithin the time period is included. ABO grouping AB [facility] DEPARTMENT OF PATHOLOGY AND GENOMIC MEDICINE Rh type POS [facility] DEPARTMENT OF PATHOLOGY AND GENOMIC MEDICINE Antibody screen (gel) NEG [facility] DEPARTMENT OF PATHOLOGY AND GENOMIC MEDICINE Performing Organization Address [facility] Hospital[facility] Phone Number [facility] DEPARTMENT OF PATHOLOGY [address] [place] [address] AND [facility] Occult blood, stool (11/06/2017 4:00 PM CDT) Occult blood, stool Positive for Occult blood (A) [facility] DEPARTMENT OF Comment: PATHOLOGY AND GENOMIC Specimen Information MEDICINE Specimen Source: Stool Specimen Site: Nonpreserved Specimen Stool - Nonpreserved Performing Organization Address City/[facility] Hospital[facility] Phone Number [facility] DEPARTMENT OF PATHOLOGY [address] [place] [address] AND [facility] IR PICC Placement (11/06/2017 2:06 PM CDT) Narrative Performed At Procedure: PICC insertion. [facility] [...] fluoroscopy. The needle was removed and a 5.5-Vietnamese peel-away sheath was then placed. Under ultrasound guidance, documentation of vessel patency, needle access with permanent recording, and reporting are performed followed by placement of a sheath in the right basilic vein. A 38 cm long 5-Vietnamese dual-lumen Power PICC was then deployed over [...] fluoroscopy. The needle was removed and a 5.5-Vietnamese peel-away sheath was then placed. Under ultrasound guidance, documentation of vessel patency, needle access with permanent recording, and reporting are performed followed by placement of a sheath in the right basilic vein. A 38 cm long 5-Vietnamese dual-lumen Power PICC was then deployed over [...] insertion. Performing Organization Address City/State/Zipcode Phone Number [facility] [address] [place] [address] [place] Guided Vascular Access (11/06/2017 2:06 PM CDT) Narrative Performed At Procedure: PICC insertion. [employer] Clinical indication: Need for long-term intravenous medication. [...] fluoroscopy. The needle was removed and a 5.5-Vietnamese peel-away sheath was then placed. Under ultrasound guidance, documentation of vessel patency, needle access with permanent recording, and reporting are performed followed by placement of a sheath in the right basilic vein. A 38 cm long 5-Vietnamese dual-lumen Power PICC was then deployed over [...] fluoroscopy. The needle was removed and a 5.5-Vietnamese peel-away sheath was then placed. Under ultrasound guidance, documentation of vessel patency, needle access with permanent recording, and reporting are performed followed by placement of a sheath in the right basilic vein. A 38 cm long 5-Vietnamese dual-lumen Power PICC was then deployed over [...] insertion. Performing Organization Address City/State/Zipcode Phone Number [facility] [address] [place] [address] duplex arterial lower extremity (11/05/2017 10:49 AM CDT) Narrative Performed At EXAM: US DUPLEX ARTERIAL LOWER EXTREMITY BILATERAL MARIA INES MASON HISTORY: peripheral arterial occlusive disease TECHNIQUE: Real-time [...] INDEX: Posterior tibial: Noncompressible. Dorsalis pedis: Noncompressible. [facility]-[id number] NELSON Guidelines: >1.4: Calcified Vessel 0.9-1.4: Normal [...] INDEX: Posterior tibial: Noncompressible. Dorsalis pedis: Noncompressible. [facility]-[id number] NELSON Guidelines: >1.4: Calcified Vessel 0.9-1.4: Normal 0.7-0.89: Mild PAD 0.51-0.69: Moderate PAD <0.5: Severe PAD Performing Organization Address [facility] Phone Number [facility] [address] [place] [address] XR Chest 1 Vw Portable (11/05/2017 5:40 AM CDT)Only the most recent of2 resultswithin the time period is included. Narrative Performed At EXAMINATION:XR CHEST 1 VW PORTABLE [facility] CLINICAL HISTORY:Pneumonia COMPARISON:Most Recent IMPRESSION: Heart and mediastinum are stable. Left-sided AICD again noted. Perihilar interstitial and patchy opacities without new infiltrates. Bones are osteopenic. [facility]-[id number] Procedure Note Interface, Radiology Results Incoming - 11/05/2017 7:31 AM CDT EXAMINATION: XR CHEST 1 VW PORTABLE CLINICAL HISTORY: Pneumonia COMPARISON: Most Recent IMPRESSION: Heart and mediastinum are stable. Left-sided AICD again noted. Perihilar interstitial and patchy opacities without new infiltrates. Bones are osteopenic. [facility]-[id number] Performing Organization Address [facility] Phone Number [facility] [address] [place] [address] Total iron binding capacity (11/05/2017 4:35 AM CDT) Iron level 106 37 - 145 ug/dL [facility] DEPARTMENT OF PATHOLOGY AND GENOMIC MEDICINE Iron binding capacity 137 (L) 260 - 460 ug/dL [facility] DEPARTMENT OF PATHOLOGY AND GENOMIC MEDICINE % Saturation 77.4 (H) 15.0 - 38.0 % [facility] DEPARTMENT OF PATHOLOGY AND GENOMIC MEDICINE Specimen Plasma specimen Performing Organization Address [facility]/State/Zipcode Phone Number [facility] DEPARTMENT OF PATHOLOGY [address] [place] [address] AND [employer] [facility] Folate level (11/05/2017 4:35 AM CDT) Folate 2.9 (L) 4.8 - 24.2 ng/mL [facility] DEPARTMENT OF PATHOLOGY AND GENOMIC MEDICINE Specimen Serum Performing Organization Address City/[facility]/Zipcode Phone Number [facility] DEPARTMENT OF PATHOLOGY AND [address] [place] [address] Ferritin level (11/05/2017 4:35 AM CDT) Ferritin level 439 (H) 13 - 150 ng/mL [facility] DEPARTMENT OF PATHOLOGY AND GENOMIC MEDICINE Specimen Plasma specimen Performing Organization Address City/[facility]/Zipcode Phone Number [facility] DEPARTMENT OF PATHOLOGY AND [address] [place] [address] Prepare platelet pheresis, 1 Units (11/04/2017 9:10 AM CDT) Product name Apheresis PLT, Leukored IRR [facility] DEPARTMENT OF 2 PATHOLOGY AND GENOMIC MEDICINE Unit number [id number] [facility] DEPARTMENT OF PATHOLOGY AND GENOMIC MEDICINE Product code [id number] [facility] DEPARTMENT OF PATHOLOGY AND GENOMIC MEDICINE Dispense status Transfused [facility] DEPARTMENT OF PATHOLOGY AND GENOMIC MEDICINE Blood expiration date [facility] DEPARTMENT OF PATHOLOGY AND GENOMIC MEDICINE Blood type code 6200 [facility] DEPARTMENT OF PATHOLOGY AND GENOMIC MEDICINE Blood type A POSITIVE [facility] DEPARTMENT OF PATHOLOGY AND GENOMIC MEDICINE Performing Organization Address [facility] Phone Number [facility] DEPARTMENT OF PATHOLOGY [address] [place] [address] AND [employer] [place] [facility] Prepare fresh frozen plasma, 4 Units (11/04/2017 9:10 AM CDT) Product name Thawed Plasma [facility] DEPARTMENT OF PATHOLOGY AND GENOMIC MEDICINE Unit number [id number] [facility] DEPARTMENT OF PATHOLOGY AND GENOMIC MEDICINE Product code [id number] [facility] DEPARTMENT OF PATHOLOGY AND GENOMIC MEDICINE Dispense status Transfused [facility] DEPARTMENT OF PATHOLOGY AND GENOMIC MEDICINE Blood expiration date [facility] DEPARTMENT OF PATHOLOGY AND GENOMIC MEDICINE Blood type code 8400 [facility] DEPARTMENT OF PATHOLOGY AND GENOMIC MEDICINE Blood type AB POSITIVE [facility] DEPARTMENT OF PATHOLOGY AND GENOMIC MEDICINE Product name Thawed Plasma [facility] DEPARTMENT OF PATHOLOGY AND GENOMIC MEDICINE Unit number [id number] [facility] DEPARTMENT OF PATHOLOGY AND GENOMIC MEDICINE Product code [id number] [facility] DEPARTMENT OF PATHOLOGY AND GENOMIC MEDICINE Dispense status Transfused [facility] DEPARTMENT OF PATHOLOGY AND GENOMIC MEDICINE Blood expiration date [facility] DEPARTMENT OF PATHOLOGY AND GENOMIC MEDICINE Blood type code 8400 [facility] DEPARTMENT OF PATHOLOGY AND GENOMIC MEDICINE Blood type AB POSITIVE [facility] DEPARTMENT OF PATHOLOGY AND GENOMIC MEDICINE Product name Thawed Plasma [facility] DEPARTMENT OF PATHOLOGY AND GENOMIC MEDICINE Unit number [id number] [facility] DEPARTMENT OF PATHOLOGY AND GENOMIC MEDICINE Product code [id number] [facility] DEPARTMENT OF PATHOLOGY AND GENOMIC MEDICINE Dispense status Transfused [facility] DEPARTMENT OF PATHOLOGY AND GENOMIC MEDICINE Blood expiration date [facility] DEPARTMENT OF PATHOLOGY AND GENOMIC MEDICINE Blood type code 8400 [facility] DEPARTMENT OF PATHOLOGY AND GENOMIC MEDICINE Blood type AB POSITIVE [facility] DEPARTMENT OF PATHOLOGY AND GENOMIC MEDICINE Product name Thawed Plasma [facility] DEPARTMENT OF PATHOLOGY AND GENOMIC MEDICINE Unit number [id number] [facility] DEPARTMENT OF PATHOLOGY AND GENOMIC MEDICINE Product code [id number] [facility] DEPARTMENT OF PATHOLOGY AND GENOMIC MEDICINE Dispense status Transfused [facility] DEPARTMENT OF PATHOLOGY AND GENOMIC MEDICINE Blood expiration date [facility] DEPARTMENT OF PATHOLOGY AND GENOMIC MEDICINE Blood type code 8400 [facility] DEPARTMENT OF PATHOLOGY AND GENOMIC MEDICINE Blood type AB POSITIVE [facility] DEPARTMENT OF PATHOLOGY AND GENOMIC MEDICINE Specimen Blood Performing Organization Address [facility] Phone Number [facility] DEPARTMENT OF PATHOLOGY [address] [place] [address] AND [facility] Thyroid stimulating hormone (11/04/2017 4:40 AM CDT) TSH 2.28 0.27 - 4.20 uIU/mL [facility] DEPARTMENT OF PATHOLOGY AND GENOMIC MEDICINE Specimen Plasma specimen Performing Organization Address [facility] Phone Number [facility] DEPARTMENT OF PATHOLOGY [address] [place] [address] AND [facility] Digoxin level (11/04/2017 4:40 AM CDT) Digoxin 3.2 (HH) 0.8 - 2.0 ng/mL [facility] DEPARTMENT OF PATHOLOGY Comment: AND [employer] MEDICINE For valid Digoxin results, at least 6 hours should elapse between time of last dose and collection of blood. Otherwise, result may be false high. Therapeutic Range: 0.8 - 2.0 ng/mL Final results called to and read back by JOAN MATTHEWS 11/04/2017 05:58 AR Specimen Plasma specimen Performing Organization Address [facility] Phone Number [facility] DEPARTMENT OF PATHOLOGY [address] [place] [address] AND [employer] [facility] Urinalysis screen and microscopy, with reflex to culture (11/03/2017 2:45 PM CDT) Specimen site [place] [facility] DEPARTMENT OF PATHOLOGY AND GENOMIC MEDICINE Color, UA Yellow [facility] DEPARTMENT OF PATHOLOGY AND GENOMIC MEDICINE Appearance, UA Turbid [facility] DEPARTMENT OF PATHOLOGY AND GENOMIC MEDICINE Specific gravity, UA 1.009 1.001 - 1.030 [facility] DEPARTMENT OF PATHOLOGY AND GENOMIC MEDICINE pH, UA 5.0 5.0 - 9.0 [facility] DEPARTMENT OF PATHOLOGY AND GENOMIC MEDICINE Protein, UA 1+ (A) Negative [facility] DEPARTMENT OF PATHOLOGY AND GENOMIC MEDICINE Glucose, UA Negative Negative [facility] DEPARTMENT OF PATHOLOGY AND GENOMIC MEDICINE Ketones, UA Trace (A) Negative [facility] DEPARTMENT OF PATHOLOGY AND GENOMIC MEDICINE Bilirubin, UA Negative Negative [facility] DEPARTMENT OF PATHOLOGY AND GENOMIC MEDICINE Blood, UA Moderate (A) Negative [facility] DEPARTMENT OF PATHOLOGY AND GENOMIC MEDICINE Nitrite, UA Negative Negative [facility] DEPARTMENT OF PATHOLOGY AND GENOMIC MEDICINE Urobilinogen, UA <2.0 <2.0 E.U./dL [facility] DEPARTMENT OF PATHOLOGY AND GENOMIC MEDICINE Leukocyte esterase, UA Large (A) Negative [facility] DEPARTMENT OF PATHOLOGY AND GENOMIC MEDICINE Epithelial cells, UA 7 /HPF [facility] DEPARTMENT OF PATHOLOGY AND GENOMIC MEDICINE WBC, UA >200 (H) 0 - 4 /HPF [facility] DEPARTMENT OF PATHOLOGY AND GENOMIC MEDICINE RBC, UA 84 (H) 0 - 2 /HPF [facility] DEPARTMENT OF PATHOLOGY AND GENOMIC MEDICINE Bacteria, UA Few None seen [facility] DEPARTMENT OF PATHOLOGY AND GENOMIC MEDICINE WBC clumps, UA Many (A) [facility] DEPARTMENT OF PATHOLOGY AND GENOMIC MEDICINE Yeast, UA Few (A) [facility] DEPARTMENT OF PATHOLOGY AND GENOMIC MEDICINE Yeast with pseudohyphae, UA None seen [facility] DEPARTMENT OF PATHOLOGY AND GENOMIC MEDICINE Hyaline casts, UA >20 (A) /LPF [facility] DEPARTMENT OF PATHOLOGY AND GENOMIC MEDICINE Specimen Urine Performing Organization Address City/State/Zipcode Phone Number [facility] DEPARTMENT OF PATHOLOGY [address] [place] [address] AND [employer] MEDICINE Gram stain (11/03/2017 2:45 PM CDT) Gram stain result Many WBC's [facility] DEPARTMENT OF PATHOLOGY AND Many Yeast GENOMIC MEDICINE Comment: Specimen Information Specimen Source: Urine Specimen Site: [place] Specimen Urine - Zacro Performing Organization Address [facility] Phone Number [facility] DEPARTMENT OF PATHOLOGY AND [address] [place] [phone] GENOMIC MEDICINE Urine culture (11/03/2017 2:45 PM CDT) Urine culture isolate Rosy glabrata [facility] DEPARTMENT OF >10-5 cfu/ml PATHOLOGY AND GENOMIC The performance characteristics of this assay on this isolate MEDICINE were validated by the Microbiology Laboratory at [facility].This source has not been approved by the [...] BP >256 mcg/mL: Resistant Performing Organization Address [facility] Phone Number [facility] DEPARTMENT OF PATHOLOGY AND [address] [place] [phone] [facility] Blood culture, aerobic & anaerobic (11/03/2017 1:12 AM CDT)Only the most recent of2 resultswithin the time period is included. Blood culture isolate No growth after 5 days of incubation. [facility] DEPARTMENT OF Comment: PATHOLOGY AND GENOMIC Specimen Information MEDICINE Specimen Source: Blood Specimen Site: Hand Left Specimen Blood - Antecubital, right Performing Organization Address [facility] Phone Number [facility] DEPARTMENT OF PATHOLOGY AND [address] [place] [address] [phone] [facility] after 07/13/2017 Insurance Payer Benefit Plan / Group Subscriber ID Type Phone Address MEDICAID MEDICAID xxxxxxxxx Medicaid MEDICARE MEDICARE PART A AND B xxxxxxxxxx Medicare [place], [place] Advance Directives Patient has advance care planning documents on file. For more information, please contact:Chris Garrido[address] [place] [address]
--- OUTSIDE RECORDS SUMMARY | 2018-07-14 09:45 | XMS REPORT ---
:1935 Author Organization [facility] Address [address] [place] [address] Dr. R[address] [place] [address] Care Team Providers Name Role Phone HARDIK [...] Department ID 2017-09-10 2017-09-10 Outpatient Telma [facility] [id number] 18:56:00 18:56:00 HARDIK 2017-07-01 2017-07-04 Inpatient DAWOOD CARVALHO TELE [id number] 22:15:00 15:46:00 BYRON Results Test Description Test Time Test Comments Text Results Atomic Results Result Comments Sed Rate ESR ([place]) 2017-09-10 22:33:00 Test Item Value Reference Range Comments ESR (test code=HESR) 44 mm/Hr 0-20 CBC with [id number] 20:59:00 Test Item Value Reference Range Comments [...] Lymph Abs (test code=ALYMPH) 1.6 K/cumm 0.5-4.6 [place] Abs (test code=AMONO) 0.5 K/cumm 0.0-1.2 Eos Abs (test code=AEOS) 0.10 K/cumm 0.00-0.74 Baso Abs (test code=ABASO) 0.0 K/cumm 0.00-0.21 Hypochromic (test code=HYPO) Slight Lipid [id number] 20:09:00 Test Item Value Reference Range Comments Cholesterol (test 208 mg/dL 0-200 code=CHOL) Triglycerides (test 178 mg/dL 9-200 code=TRIG) HDL (test code=HDL) 45 mg/dL 50-60 Chol/HDL (test 4.6 Ratio 0.0-4.4 code=CHOLPHDL) LDL, Calculated (test 127 mg/dL 0-130 (NOTE)RISK OF HEART code=LDLC) DISEASEPublished by Tristanian Heart AssociationAnalyte Optimal Boderline Increased RiskCHOL <200 200-239 >240TRIG <150 150-199 >200HDL Male: >60 <40HDL Female: >60 <50LDL <100 130-159 >160LDL NEAR OPTIMAL IS 100-129 VLDL (test code=VLDL) 36 mg/dL 5-40 LDL/HDL (test code=LDLPHDL) 3 [id number] 20:09:00 Test Item Value Reference Range Comments Lipase (test code=LIP) 31 U/L 13-60 [id number] 20:09:00 Test Item Value Reference Range Comments Amylase (test code=SHAKIR) 92 U/L 28-100 [id number]-[id number] 20:09:00 Test Item Value Reference Range Comments NT ProBnp (test code=PBNP) 13759 pg/mL 0-449 Comprehensive Metabolic [id number] 20:09:00 Test Item Value Reference Range Comments [...] race is not provided, and the patient isAfrican-Tristanian, multiply by 1.212. If sex is not provided, and thepatient is female, multiply by 0.742. Results for patients <18 years ofage have not been validated by the MDRD study and should be interpretedwith caution.eGFR Result Interpretation:eGFR > or=60 is in the Normal RangeeGFR < 60 may mean kidney diseaseeGFR < 15 may mean kidney failureRanges recommended by the National Kidney Foundation,http://nkdep.nih .gov BLOOD [id number] 23:30:00 Test Item Value Reference Range Comments Culture Observations (test code=COB1) NO GROWTH AFTER 5 DAYS BLOOD [id number] 23:30:00 Test Item Value Reference Range Comments Culture Observations (test code=COB1) NO GROWTH AFTER 5 DAYS WOUND/SKIN/ABS.&GRAMSTAIN [id number] 08:20:00 Test Item Value Reference Range Comments [...] (test code=lev) ug/mL GLUCOMETER GLUCOSE- LAB USE [id number] 11:39:00 Test Item Value Reference Range Comments GLUCOMETER (test code=GMG) 113 mg/dL 70-100 DAILY MAINTENANCEMeter ID: [id number]: [address] JAYY NAVARRO URINE [id number] 11:21:00 Test Item Value Reference Range Comments Isolate 1 (test code=ISO1) Pseudomonas aeruginosa piperacillin/tazobactam (test ug/mL code=tzp) ceftazidime (test code=santos) ug/mL cefepime (test code=fep) ug/mL meropenem (test code=mem) ug/mL gentamicin (test code=gm) ug/mL tobramycin (test code=tob) ug/mL levofloxacin (test code=lev) ug/mL WOUND/SKIN/ABS.&GRAMSTAIN [id number] 10:08:00 Test Item Value Reference Range Comments [...] (test code=lev) ug/mL GLUCOMETER GLUCOSE- LAB USE [id number] 05:13:00 Test Item Value Reference Range Comments GLUCOMETER (test code=GMG) 81 mg/dL 70-100 CLEANED METERMeter ID: [id number]: 5187 LETDWAYNE GOLDMAN PRO TIME AND [id number] 04:39:00 Test Item Value Reference Range Comments [...] Heparin. Order Code is ANTI-XA COMPREHENSIVE METABOLIC [id number] 04:32:00 Test Item Value Reference Range Comments [...] (test code=RBCMOR) NORMAL GLUCOMETER GLUCOSE- LAB USE [id number] 21:05:00 Test Item Value Reference Range Comments GLUCOMETER (test code=GMG) 116 mg/dL 70-100 Meter ID: [id number]: [id number] ROBERT GOLDMAN GLUCOMETER GLUCOSE- LAB USE [id number] 16:42:00 Test Item Value Reference Range Comments GLUCOMETER (test code=GMG) 247 mg/dL 70-100 DAILY MAINTENANCEMeter ID: [id number]: 9086 JAYY NAVARRO GLUCOMETER GLUCOSE- LAB USE [id number] 13:21:00 Test Item Value Reference Range Comments GLUCOMETER (test code=GMG) 206 mg/dL 70-100 DAILY MAINTENANCEMeter ID: [id number]: 9086 JAYY NAVARRO U/S KIDNEY (RENAL)2017-07-03 12:24:18RENAL ULTRASOUNDLocation Code: [id number] HISTORY: arfCOMPARISON: None.COMMENT: Real-time sonographic images of [...] acute abnormality.U/S ART FLW DOPPLER STELLA LOW [id number] 11:52:11BILATERAL LOWER EXTREMITY ARTERIAL DOPPLER :Location code: [id number] HISTORY: Bilateral leg pain with peripheral vascular [...] RBC MORPH (test code=RBCMOR) NORMAL COMPREHENSIVE METABOLIC [id number] 06:16:00 Test Item Value Reference Range Comments [...] 8 IU/L <=78 GLUCOMETER GLUCOSE- LAB USE [id number] 05:30:00 Test Item Value Reference Range Comments GLUCOMETER (test code=GMG) 118 mg/dL 70-100 CLEANED METERMeter ID: [id number]: 2907 MARGE [employer]SU GLUCOMETER GLUCOSE- LAB USE [id number] 22:27:00 Test Item Value Reference Range Comments GLUCOMETER (test code=GMG) 158 mg/dL 70-100 Meter ID: [id number]: 2907 MARGE OWSU GLUCOMETER GLUCOSE- LAB USE [id number] 21:35:00 Test Item Value Reference Range Comments GLUCOMETER (test code=GMG) 63 mg/dL 70-100 Meter ID: [id number]: 2907 MARGE OWSU EOSINOPHIL SMEAR [id number] 19:44:00 Test Item Value Reference Range Comments EO URINE (test code=EOU) MODERATE /OIF NONE SEEN CREATININE RANDOM [id number] 19:30:00 Test Item Value Reference Range Comments CREA RAND (test code=CREAR) 47.8 mg/dL NRR (test code=NRR) * NO REFRENCE RANGE AVAILABLE FOR RANDOM SPECIMEN* PROTEIN URINE [id number] 19:18:00 Test Item Value Reference Range Comments HOWARD DOE (test code=NJ) 76 mg/dL NRR (test code=NRR) * NO REFRENCE RANGE AVAILABLE FOR RANDOM SPECIMEN* GLUCOMETER GLUCOSE- LAB USE [id number] 15:24:00 Test Item Value Reference Range Comments GLUCOMETER (test code=GMG) 148 mg/dL 70-100 CLEANED METERMeter ID: [id number]: 4787 ISAAC YU GLUCOMETER GLUCOSE- LAB USE [id number] 12:43:00 Test Item Value Reference Range Comments GLUCOMETER (test code=GMG) 184 mg/dL 70-100 Meter ID: [id number]: 5683 NICOL SATYA CARDIAC [id number] 12:26:00 Test Item Value Reference Range Comments TROPONIN I (test code=A84) 0.098 ng/mL 0.000-0.045 CKMB (test code=A49) 5.0 ng/mL <=3.6 CPK (test code=32A) 58 IU/L 26-192 [id number] 12:23:00 Test Item Value Reference Range Comments Hb A1C % (test code=HBA) 8.8 % 4.2-6.3 URINALYSIS WITH [id number] 12:15:00 Test Item Value Reference Range Comments [...] NO RBC MORPH (test code=RBCMOR) NORMAL CARDIAC [id number] 05:42:00 Test Item Value Reference Range Comments TROPONIN I (test code=A84) 0.105 ng/mL 0.000-0.045 CKMB (test code=A49) 4.2 ng/mL <=3.6 CPK (test code=32A) 47 IU/L 26-192 CBC with [id number] 05:10:00 Test Item Value Reference Range Comments [...] Lymph Abs (test code=ALYMPH) 1.2 K/cumm 0.5-4.6 [place] Abs (test code=AMONO) 0.4 K/cumm 0.0-1.2 Eos Abs (test code=AEOS) 0.07 K/cumm 0.00-0.74 Baso Abs (test code=ABASO) 0.0 K/cumm 0.00-0.21 RBC Morphology (test Slight Hypochromia code=RBCMRPH) Platelet Est (test code=PLTEST) Adequate Platelets on Smear Glycosylated [id number] 03:33:00 Test Item Value Reference Range Comments HBA1c (test code=HBA1C) 9.5 % 4.8-5.9 Comprehensive Metabolic [id number] 00:02:00 Test Item Value Reference Range Comments [...] race is not provided, and the patient isAfrican-Tristanian, multiply by 1.212. If sex is not provided, and thepatient is female, multiply by 0.742. Results for patients <18 years ofage have not been validated by the MDRD study and should be interpretedwith caution.eGFR Result Interpretation:eGFR > or=60 is in the Normal RangeeGFR < 60 may mean kidney diseaseeGFR < 15 may mean kidney failureRanges recommended by the National Kidney Foundation,http://nkdep.nih. gov Lipid [id number] 00:02:00 Test Item Value Reference Range Comments Cholesterol (test 251 mg/dL 0-200 code=CHOL) Triglycerides (test 201 mg/dL 9-200 code=TRIG) HDL (test code=HDL) 44 mg/dL 50-60 Chol/HDL (test 5.7 Ratio 0.0-4.4 code=CHOLPHDL) LDL, Calculated (test 167 0-130 (NOTE)RISK OF HEART code=LDLC) DISEASEPublished by Tristanian Heart AssociationAnalyte Optimal Boderline Increased RiskCHOL <200 200-239 >240TRIG <150 150-199 >200HDL Male: >60 <40HDL Female: >60 <50LDL <100 130-159 >160LDL NEAR OPTIMAL IS 100-129 VLDL (test code=VLDL) 40 mg/dL 5-40 LDL/HDL (test code=LDLPHDL) 4
[2018-07-14 11:44] LABS: Urine Amorphous Sediment 2+ /HPF (NONE SEEN); Urine Bacteria 20-50 /HPF (<20); Urine Culture Reflex Order NOT NEEDED; Urine RBC NONE SEEN /HPF (NONE SEEN)
--- NOTE | 2018-07-14 11:49 | EDPHYS ---
Physician Documentation [facility] Name: Karissa Frias Age: 83 yrs Sex: Female : 1935 Arrival Date: 07/14/2018 Time: 09:47 Bed 24 Private MD: Carlton Owen E ED Physician Jose Valverde HPI: 07/14 10:28 This 83 yrs old Black Female presents to ER via Ambulatory with complaints of Problem kb With Urinary Catheter. 10:28 The patient presents with needs gamble catheter replaced. Associated signs and symptoms: kb The patient has no apparent associated signs or symptoms. The patient has not experienced similar symptoms in the past. The patient has not recently seen a physician. Daughter reports they were told to come here to have gamble changed out because it has been in for longer than 30 days. Awaiting home health establishment . Historical: - Allergies: :58 No Known Allergies; hj - PMHx: :58 Anemia; Atrial Fib; CAD; CHF; Diabetes - NIDDM; DYSPHAGIA; High Cholesterol; hj Hypertension; osteomyelitis; Renal Disease; - PSHx: :58 pacer/defib; PEG tube; triple bypass; hj - Immunization history:: Adult Immunizations up to date. - Social history:: Smoking status: Patient/guardian denies using tobacco, Patient/guardian denies using alcohol. - Ebola Screening: : Patient negative for fever greater than or equal to 101.5 degrees Fahrenheit, and additional compatible Ebola Virus Disease symptoms Patient denies exposure to infectious person Patient denies travel to an Ebola-affected area in the 21 days before illness onset. ROS: 10:27 Constitutional: Negative for fever, chills, and weight loss, Cardiovascular: Negative kb for chest pain, palpitations, and edema, Respiratory: Negative for shortness of breath, cough, wheezing, and pleuritic chest pain, Abdomen/GI: Negative for abdominal pain, nausea, vomiting, diarrhea, and constipation, MS/Extremity: Negative for injury and deformity, Skin: Negative for injury, rash, and discoloration, Neuro: Negative for headache, weakness, numbness, tingling, and seizure. 10:27 : Positive for gamble catheter in place. Exam: 10:27 Constitutional: This is a well developed, well nourished patient who is awake, alert, kb and in no acute distress. Head/Face: Normocephalic, atraumatic. Chest/axilla: Normal chest wall appearance and motion. Nontender with no deformity. No lesions are appreciated. Cardiovascular: Regular rate and rhythm with a normal S1 and S2. No gallops, murmurs, or rubs. Normal PMI, no JVD. No pulse deficits. Respiratory: Lungs have equal breath sounds bilaterally, clear to auscultation and percussion. No rales, rhonchi or wheezes noted. No increased work of breathing, no retractions or nasal flaring. Abdomen/GI: Soft, non-tender, with normal bowel sounds. No distension or tympany. No guarding or rebound. No evidence of tenderness throughout. Skin: Warm, dry with normal turgor. Normal color with no rashes, no lesions, and no evidence of cellulitis. MS/ Extremity: Pulses equal, no cyanosis. Neurovascular intact. Full, normal range of motion. Neuro: Awake and alert, GCS 15, oriented to person, place, time, and situation. Cranial nerves II-XII grossly intact. Motor strength 5/5 in all extremities. Sensory grossly intact. Cerebellar exam normal. Normal gait. Vital Signs: 10:00 BP 177 / 75; Pulse 60; Resp 18; Temp 97.2(TE); Pulse Ox 100% on R/A; Weight 77.11 kg; hj Height 5 ft. 7 in. (170.18 cm); Pain 0/10; 10:00 Body Mass Index 26.63 (77.11 kg, 170.18 cm) MDM: 10:07 Patient medically screened. kb 10:27 Data reviewed: vital signs, nurses notes. Data interpreted: Pulse oximetry: on room air kb is 100 %. Interpretation: normal. Counseling: I had a detailed discussion with the patient and/or guardian regarding: the historical points, exam findings, and any diagnostic results supporting the discharge/admit diagnosis, lab results, the need for outpatient follow up, a family practitioner, to return to the emergency department if symptoms worsen or persist or if there are any questions or concerns that arise at home. 07/14 10:53 Order name: Urine Microscopic Only; Complete Time: 11:48 aj1 07/14 11:03 Order name: Urine Dipstick--Ancillary (enter results) eb 07/14 10:12 Order name: Gamble: replace existing catheter; Complete Time: 10:32 kb 07/14 10:12 Order name: Urine Dipstick-Ancillary (obtain specimen); Complete Time: 10:53 kb 07/14 11:44 Order name: Urine Culture kb Administered Medications: No medications were administered Disposition: 16:59 Co-signature as Attending Physician, Jose Valverde MD. rn Disposition: 07/14/18 11:48 Discharged to Home. Impression: Encounter for fitting and adjustment of urinary device - Replace gamble catheter. - Condition is Stable. - Discharge Instructions: Gamble Catheter Care, Adult, [id number]. - Medication Reconciliation Form, Thank You Letter, Antibiotic Education, Prescription Opioid Use form. - Follow up: Emergency Department; When: As needed; Reason: Worsening of condition. Follow up: Carlton Owen; When: 2 - 3 days; Reason: Recheck today's complaints, Continuance of care, Re-evaluation by your physician. Signatures: Dispatcher [employer] ED[employer]J Yudy Slaughter, TYPING ELEMENT MACHINE OPERATOR-C TYPING ELEMENT MACHINE OPERATOR-Ckb Karen Abebe RN RN aj1 Jose Valverde MD MD rn Joaquin, Henry, RN RN Corrections: (The following items were deleted from the chart) 12:32 11:48 07/14/2018 11:48 Discharged to Home. Impression: Encounter for fitting and aj1 adjustment of urinary device - Replace gamble catheter. Condition is Stable. Discharge Instructions: Gamble Catheter Care, Adult, [id number]. Forms are Medication Reconciliation Form, Thank You Letter, Antibiotic Education, Prescription Opioid Use. Follow up: Emergency Department; When: As needed; Reason: Worsening of condition. Follow up: Carlton Owen; When: 2 - 3 days; Reason: Recheck today's complaints, Continuance of care, Re-evaluation by your physician. kb
--- NOTE | 2018-07-14 11:49 | ER ---
Nurse's Notes [facility] Name: Karissa Frias Age: 83 yrs Sex: Female : 1935 Arrival Date: 07/14/2018 Time: 09:47 Bed 24 Private MD: Carlton Owen E Diagnosis: Encounter for fitting and adjustment of urinary device-Replace gamble catheter Presentation: 07/14 09:56 Presenting complaint: Patient states: i have problem with my urinary cath, i guess its hj supposed to be taken out and place a new one; denies fever and chills; pt not a very good historian, daughter left before pt called in triage; daughter came back: per daughter, pt cath is due to be changed;. Transition of care: patient was not received from another setting of care. Onset of symptoms was July 14, 2018. Risk Assessment: Do you want to hurt yourself or someone else? Patient reports no desire to harm self or others. Initial Sepsis Screen: Does the patient meet any 2 criteria? No. Patient's initial sepsis screen is negative. Does the patient have a suspected source of infection? No. Patient's initial sepsis screen is negative. Care prior to arrival: None. 09:56 Method Of Arrival: Ambulatory hj 09:56 Acuity: LAURO 4 hj Triage Assessment: 09:59 General: Appears in no apparent distress. uncomfortable, Behavior is calm, cooperative, hj appropriate for age. Pain: Denies pain. Historical: - Allergies: 09:58 No Known Allergies; hj - PMHx: 09:58 Anemia; Atrial Fib; CAD; CHF; Diabetes - NIDDM; DYSPHAGIA; High Cholesterol; hj Hypertension; osteomyelitis; Renal Disease; - PSHx: 09:58 pacer/defib; PEG tube; triple bypass; hj - Immunization history:: Adult Immunizations up to date. - Social history:: Smoking status: Patient/guardian denies using tobacco, Patient/guardian denies using alcohol. - Ebola Screening: : Patient negative for fever greater than or equal to 101.5 degrees Fahrenheit, and additional compatible Ebola Virus Disease symptoms Patient denies exposure to infectious person Patient denies travel to an Ebola-affected area in the 21 days before illness onset. Screenin:59 Abuse screen: Denies threats or abuse. Denies injuries from another. Nutritional hj screening: No deficits noted. Tuberculosis screening: No symptoms or risk factors identified. Fall Risk None identified. Assessment: 10:15 General: Appears in no apparent distress. comfortable, Behavior is calm, cooperative, aj1 appropriate for age. Pain: Denies pain. Neuro: Level of Consciousness is awake, alert, obeys commands. Cardiovascular: Patient's skin is warm and dry. Respiratory: Airway is patent Respiratory effort is even, unlabored, Respiratory pattern is regular, symmetrical. GI: No signs and/or symptoms were reported involving the gastrointestinal system. : Reports She needs her catheter changed and she has not been able to have home health set up so her doctor told her to come to the emergency room. EENT: No signs and/or symptoms were reported regarding the EENT system. Derm: No signs and/or symptoms reported regarding the dermatologic system. Skin is pink, warm \T\ dry. normal. Musculoskeletal: No signs and/or symptoms reported regarding the musculoskeletal system. Circulation, motion, and sensation intact. 11:10 Reassessment: Patient appears in no apparent distress at this time. No changes from aj1 previously documented assessment. Patient and/or family updated on plan of care and expected duration. Pain level reassessed. Patient is alert, oriented x 3, equal unlabored respirations, skin warm/dry/pink. 12:00 Reassessment: Discharge pending patient's daughter returning to pick her up. Called aj1 patient's daughter, who states that she is on her way. 12:31 Reassessment: Patient appears in no apparent distress at this time. No changes from aj1 previously documented assessment. Patient and/or family updated on plan of care and expected duration. Pain level reassessed. Patient is alert, oriented x 3, equal unlabored respirations, skin warm/dry/pink. Vital Signs: 10:00 BP 177 / 75; Pulse 60; Resp 18; Temp 97.2(TE); Pulse Ox 100% on R/A; Weight 77.11 kg; hj Height 5 ft. 7 in. (170.18 cm); Pain 0/10; 10:00 Body Mass Index 26.63 (77.11 kg, 170.18 cm) ED Course: 09:47 Patient arrived in ED. as 09:47 Carlton Owen MD is Private Physician. as 09:58 Triage completed. hj 09:59 Arm band placed on right wrist. hj 09:59 Patient has correct armband on for positive identification. Bed in low position. Call hj light in reach. Side rails up X 1. 10:04 Karen Abebe, RN is Primary Nurse. aj1 10:06 Yudy Slaughter FNP-C is [facility]. kb 10:06 Jose Valverde MD is Attending Physician. kb 10:15 No provider procedures requiring assistance completed. aj1 10:33 Gamble cath removed intact, balloon deflated. aj1 10:33 Gamble cath inserted, using sterile technique, 16 Fr., by wa, balloon inflated, to aj1 gravity drainage, Patient tolerated well. 11:48 Carlton Owen MD is Referral Physician. kb 12:00 Urine collected: Gamble catheter specimen, clear, prem colored, Amount Returned: 80mL. jp3 12:30 Urine Culture Sent. jp3 12:30 Urine Dipstick--Ancillary (enter results) Sent. jp3 12:31 Patient did not have IV access during this emergency room visit. aj1 Administered Medications: No medications were administered Outcome: 11:48 Discharge ordered by MD. kb 12:31 Discharged to home via wheelchair, with family. aj1 12:31 Condition: good 12:31 Discharge instructions given to patient, family, Instructed on discharge instructions, follow up and referral plans. Demonstrated understanding of instructions, follow-up care. 12:32 Patient left the ED. aj1 Signatures: Yudy Slaughter FNP-C FNP-Karen Sabillon RN RN aj1 Lisseth Turner Henry, RN RN Frdey Adams jp3 Corrections: (The following items were deleted from the chart) 10:00 09:56 Presenting complaint: Patient states: i have problem with my urinary cath, i hj guess its supposed to be taken out and place a new one; denies fever and chills; hj 10:03 09:56 Presenting complaint: Patient states: i have problem with my urinary cath, i hj guess its supposed to be taken out and place a new one; denies fever and chills; pt not a very good historian, daughter left before pt called in triage; hj
[2018-07-14 12:43] LABS: Urine Blood NEGATIVE (NEG); Urine Glucose NEGATIVE (NEG); Urine Protein NEGATIVE (NEG); Urine pH 5.5 (5.0-7.0)
== END 2018-07-14 12:32 | disposition home or self-care (01) ==
LOC: ER 09:41
DX: Z46.82 Encounter for fitting and adjustment of non-vascular catheter (principal); I10 Essential (primary) hypertension; Z95.0 Presence of cardiac pacemaker; Z95.1 Presence of aortocoronary bypass graft
CPT/HCPCS: 51702; 81003; 81015; 87086; 87088; 99284

== ENCOUNTER 2018-09-20 09:49 | Emergency (ER) | payer OTHER ==
--- OUTSIDE RECORDS SUMMARY | 2018-09-20 09:53 | XMS REPORT | Clinical Summary ---
:1935 Author Organization [employer] Address [address] [place] [address] Care Team Providers Name Role Phone Ester [...] Overview: Added automatically from request for surgery [id number] Encounters Date Type Specialty Care Team Description 11/12/2017 Anesthesia Event Gastroenterology Marija Can MD 11/12/2017 Surgery Gastroenterology Rosa, EGD WITH PEG Denny Khan MD INSERTION 11/07/2017 Anesthesia Event Intensive Care Junie Hodgson CRNA 11/07/2017 Surgery Gastroenterology Rosa EGD WITH control of Denny Khan MD bleeding 11/03/2017 [facility] Internal Natan, [facility] Upper GI bleed (Primary Dx ); - Encounter Medicine MD Mickey Toxic metabolic encephalopathy 11/13/2017 after 09/19/2017 Social History Tobacco Use Types Packs/Day Years [...] Health Maintenance Due Date Last Done Comments SHINGLES VACCINES (1 of 2) 1987 PNEUMOCOCCAL POLYSACCHARIDE VACCINE AGE 65 AND OVER [...] procedure are in the results section. after 09/19/2017 Results Transfuse RBC (04/09/2018 5:52 PM CDT)Only the most recent of7 resultswithin the time period is included.POC glucose (11/13/2017 11:32 AM CDT)Only the most recent of53 resultswithin the time period is included. POC glucose 164 (H) 65 - 99 mg/dL [facility] DEPARTMENT OF PATHOLOGY AND Comment: GENOMIC MEDICINE RN Notified Meter ID: [id number] Pharmacy Helper: Gennaro Tyler Performing Organization Address City/State/Zipcode Phone Number [facility] DEPARTMENT OF PATHOLOGY [address] [place] [address] AND [email or web address] Estimated GFR (11/13/2017 4:45 AM CDT)Only the most recent of13 resultswithin the time period is included. GFR Non Af Amer 19 (A) mL/min/1.73 m2 [facility] DEPARTMENT OF PATHOLOGY AND GENOMIC MEDICINE GFR Af Amer 24 (A) mL/min/1.73 m2 [facility] DEPARTMENT OF Comment: PATHOLOGY AND GENOMIC [...] Americans. Specimen Plasma specimen Performing Organization Address City/[facility]/Zipcode Phone Number [facility] OF PATHOLOGY [address] [facility] [place] [address] AND [email or web address] CBC with platelet and differential (11/13/2017 4:45 AM CDT)Only the most recent of12 resultswithin the time period is included. WBC 9.3 4.5 - 11.0 k/uL [facility] DEPARTMENT OF PATHOLOGY AND GENOMIC MEDICINE RBC 3.05 (L) 4.20 - 5.50 m/uL [facility] DEPARTMENT OF PATHOLOGY AND GENOMIC MEDICINE HGB 8.8 (L) 12.0 - 16.0 g/dL [facility] DEPARTMENT OF PATHOLOGY AND GENOMIC MEDICINE HCT 25.4 (L) 37.0 - 47.0 % [facility] DEPARTMENT OF PATHOLOGY AND GENOMIC MEDICINE MCV 83.3 82.0 - 100.0 fL [facility] DEPARTMENT OF PATHOLOGY AND GENOMIC MEDICINE MCH 28.9 27.0 - 34.0 pg [facility] DEPARTMENT OF PATHOLOGY AND GENOMIC MEDICINE MCHC 34.6 31.0 - 37.0 g/dL [facility] DEPARTMENT OF PATHOLOGY AND GENOMIC MEDICINE RDW - SD 49.3 37.0 - 55.0 fL [facility] DEPARTMENT OF PATHOLOGY AND GENOMIC MEDICINE MPV 11.4 (H) 6.9 - 11.0 fL [facility] DEPARTMENT OF PATHOLOGY AND GENOMIC MEDICINE Platelet count 62 (L) 150 - 400 K/uL [facility] DEPARTMENT OF PATHOLOGY AND GENOMIC MEDICINE Nucleated RBC 0.50 /100 WBC [facility] DEPARTMENT OF PATHOLOGY AND GENOMIC MEDICINE Neutrophils 76.3 (H) 39.0 - 69.0 % [facility] DEPARTMENT OF PATHOLOGY AND GENOMIC MEDICINE Lymphocytes 13.7 (L) 25.0 - 45.0 % [facility] DEPARTMENT OF PATHOLOGY AND GENOMIC MEDICINE Monocytes 7.3 0.0 - 10.0 % [facility] DEPARTMENT OF PATHOLOGY AND GENOMIC MEDICINE Eosinophils 1.5 0.0 - 5.0 % [facility] DEPARTMENT OF PATHOLOGY AND GENOMIC MEDICINE Basophils 0.1 0.0 - 1.0 % [facility] DEPARTMENT OF PATHOLOGY AND GENOMIC MEDICINE Immature granulocytes 1.1 (H) 0.0 - 1.0 % [facility] DEPARTMENT OF PATHOLOGY AND GENOMIC MEDICINE Specimen Blood Performing Organization Address City/State/Zipcode Phone Number [facility] DEPARTMENT OF PATHOLOGY [address] [place] [address] AND [employer] [facility] Comprehensive metabolic panel (11/13/2017 4:45 AM CDT)Only the most recent of8 resultswithin the time period is included. Sodium 135 135 - 148 mEq/L [facility] DEPARTMENT OF PATHOLOGY AND GENOMIC MEDICINE Potassium 3.9 3.5 - 5.0 mEq/L [facility] DEPARTMENT OF PATHOLOGY AND GENOMIC MEDICINE Chloride 105 98 - 112 mEq/L [facility] DEPARTMENT OF PATHOLOGY AND GENOMIC MEDICINE CO2 17 (L) 24 - 31 mEq/L [facility] DEPARTMENT OF PATHOLOGY AND GENOMIC MEDICINE Anion gap 13 7 - 15 mEq/L [facility] DEPARTMENT OF Comment: PATHOLOGY AND GENOMIC Starting from November , anion gap calculation MEDICINE no longer incorporates potassium. Please note the change. BUN 51 (H) 8 - 23 mg/dL [facility] DEPARTMENT OF PATHOLOGY AND GENOMIC MEDICINE Creatinine 2.4 (H) 0.5 - 0.9 mg/dL [facility] DEPARTMENT OF PATHOLOGY AND GENOMIC MEDICINE Glucose 152 (H) 65 - 99 mg/dL [facility] DEPARTMENT OF PATHOLOGY AND GENOMIC MEDICINE Calcium 8.6 (L) 8.8 - 10.2 mg/dL [facility] DEPARTMENT OF PATHOLOGY AND GENOMIC MEDICINE Protein 5.1 (L) 6.3 - 8.3 g/dL [facility] DEPARTMENT OF PATHOLOGY AND GENOMIC MEDICINE Albumin 2.1 (L) 3.5 - 5.0 g/dL [facility] DEPARTMENT OF PATHOLOGY AND GENOMIC MEDICINE A/G ratio 0.7 0.7 - 3.8 [facility] DEPARTMENT OF PATHOLOGY AND GENOMIC MEDICINE Alkaline phosphatase 83 35 - 104 U/L [facility] DEPARTMENT OF PATHOLOGY AND GENOMIC MEDICINE AST 9 (L) 10 - 35 U/L [facility] DEPARTMENT OF PATHOLOGY AND GENOMIC MEDICINE ALT 6 5 - 50 U/L [facility] DEPARTMENT OF PATHOLOGY AND GENOMIC MEDICINE Total bilirubin 0.3 0.2 - 1.2 mg/dL [facility] DEPARTMENT OF PATHOLOGY AND GENOMIC MEDICINE Specimen Plasma specimen Performing Organization Address City/[facility] Phone Number [facility] DEPARTMENT OF PATHOLOGY [address] [place] [address] AND [facility] Prothrombin time with INR (11/12/2017 6:20 AM CDT)Only the most recent of5 resultswithin the time period is included. Prothrombin time 19.0 (H) 12.0 - 15.0 sec [facility] DEPARTMENT OF PATHOLOGY AND GENOMIC MEDICINE INR 1.6 [facility] DEPARTMENT OF Comment: PATHOLOGY AND GENOMIC The International Normalized Ratio (INR) is a therapeutic MEDICINE monitoring tool for patients who are stable on oral anticoagulant therapy. An INR of 2.0-3.0 is suggested for deep vein thrombosis/pulmonary embolism. Specimen Blood Performing Organization Address [facility] Phone Number [facility] DEPARTMENT OF PATHOLOGY [address] [place] [address] AND [facility] Phosphorus level (11/11/2017 4:10 AM CDT)Only the most recent of3 resultswithin the time period is included. Phosphorus 3.0 2.4 - 4.5 mg/dL [facility] DEPARTMENT OF PATHOLOGY AND GENOMIC MEDICINE Specimen Plasma specimen Performing Organization Address City/[facility] Phone Number [facility] DEPARTMENT OF PATHOLOGY [address] [place] [address] AND [facility] Magnesium level (11/11/2017 4:10 AM CDT)Only the most recent of9 resultswithin the time period is included. Magnesium 1.9 1.6 - 2.4 mg/dL [facility] DEPARTMENT OF PATHOLOGY AND GENOMIC MEDICINE Specimen Plasma specimen Performing Organization Address City/[facility] Phone Number [facility] DEPARTMENT OF PATHOLOGY [address] [place] [address] AND [facility] Basic metabolic panel (11/11/2017 4:10 AM CDT)Only the most recent of5 resultswithin the time period is included. Sodium 140 135 - 148 mEq/L [facility] DEPARTMENT OF PATHOLOGY AND GENOMIC [facility] Potassium 4.4 3.5 - 5.0 mEq/L [facility] DEPARTMENT OF PATHOLOGY AND GENOMIC MEDICINE Chloride 110 98 - 112 mEq/L [facility] DEPARTMENT OF PATHOLOGY AND GENOMIC MEDICINE CO2 16 (L) 24 - 31 mEq/L [facility] DEPARTMENT OF PATHOLOGY AND GENOMIC [facility] Anion gap 14 7 - 15 mEq/L [facility] DEPARTMENT OF Comment: PATHOLOGY AND GENOMIC Starting from November , anion gap calculation MEDICINE no longer incorporates potassium. Please note the change. BUN 53 (H) 8 - 23 mg/dL [facility] DEPARTMENT OF PATHOLOGY AND GENOMIC [facility] Creatinine 2.3 (H) 0.5 - 0.9 mg/dL [facility] DEPARTMENT OF PATHOLOGY AND GENOMIC [facility] Glucose 227 (H) 65 - 99 mg/dL [facility] DEPARTMENT OF PATHOLOGY AND GENOMIC [facility] Calcium 8.4 (L) 8.8 - 10.2 mg/dL [facility] DEPARTMENT OF PATHOLOGY AND GENOMIC [facility] Specimen Plasma specimen Performing Organization Address City/[facility]/Zipcode Phone Number [facility] DEPARTMENT PATHOLOGY [address] [place] [address] AND [facility] Hemoglobin & hematocrit (11/08/2017 10:05 AM CDT)Only the most recent of4 resultswithin the time period is included. HGB 9.8 (L) 12.0 - 16.0 g/dL [facility] DEPARTMENT OF PATHOLOGY AND [facility] HCT 27.8 (L) 37.0 - 47.0 % [facility] DEPARTMENT OF PATHOLOGY [facility] GENOMIC [facility] Specimen Blood Performing Organization Address City/[facility]/[place] [address] AND [facility] Transfuse fresh frozen plasma (11/08/2017 3:32 AM CDT)Only the most recent of5 resultswithin the time period is included.Partial thromboplastin time, activated (11/08/2017 2:45 AM CDT)Only the most recent of3 resultswithin the time period is included. PTT 37.7 (H) 23.0 - 36.0 sec [facility] DEPARTMENT OF Comment: PATHOLOGY AND [facility] PTT therapeutic range for unfractionated heparin is MEDICINE 61.0-112.0 seconds which corresponds to Anti-Xa 0.3-0.7 U/ml. Specimen Blood Performing Organization Address City/[facility] Phone Number [facility] DEPARTMENT OF PATHOLOGY [address] [place] [address]. [place] [address] AND [facility] Fibrinogen (11/08/2017 2:45 AM CDT) Fibrinogen 210 200 - 450 mg/dL [facility] DEPARTMENT OF PATHOLOGY AND [facility] MEDICINE Specimen Blood Performing Organization Address [facility] Phone Number [facility] DEPARTMENT OF PATHOLOGY [address] [place] [address]. [place] [address] AND [facility] Lactic acid level (11/08/2017 2:45 AM CDT)Only the most recent of3 resultswithin the time period is included. Lactic acid 1.6 0.5 - 2.2 mmol/L [facility] DEPARTMENT OF PATHOLOGY AND [facility] Specimen Plasma specimen Performing Organization Address [facility] Phone Number [facility] DEPARTMENT OF PATHOLOGY [address] [place] [address]. [place] [address] AND [facility] Ionized calcium (11/08/2017 2:45 AM CDT) pH 7.42 [facility] DEPARTMENT OF PATHOLOGY AND [facility] MEDICINE Ionized calcium 1.18 1.11 - 1.32 mmol/L [facility] DEPARTMENT OF PATHOLOGY AND [facility] Specimen Plasma specimen Performing Organization Address [facility] Phone Number [facility] DEPARTMENT OF PATHOLOGY [address] [place] [address]. [place] [address] AND [facility] Transfuse platelets (11/07/2017 10:07 PM CDT)Only the most recent of2 resultswithin the time period is included.Hemoglobin A1c (11/07/2017 5:10 PM CDT) Hemoglobin A1C 5.9 4.0 - 6.0 % [facility] DEPARTMENT OF PATHOLOGY Comment: AND [employer] [facility] Less than 6% - Goal of therapy for Type II Diabetes Less than 7%-Goal of therapy for Type I Diabetes Less than 8%-Acceptable control for Type I or Type II Diabetes Greater than 8%-Unacceptable control; action indicated. ([id number]) Specimen Blood Performing Organization Address City/[facility]/Zipcode Phone Number [facility] DEPARTMENT OF PATHOLOGY [address] [place] [address] AND [email or web address] ECG 12 lead (11/07/2017 9:33 AM CDT) Ventricular rate 85 [facility] Atrial rate 85 [facility] WV interval 112 [facility] QRSD interval 72 [facility] QT interval 358 [facility] QTC interval 426 [facility] P axis 1 0 [facility] QRS axis 1 127 [facility]USE T wave axis -39 [facility]USE EKG impression Electronic ventricular pacemaker-No previous [facility] MUSE ECGs available- Performing Organization Address [facility] Phone Number [facility] MUSE [address] [place] [address] Arterial blood gas (11/07/2017 8:22 AM CDT) pH, arterial 7.38 7.35 - 7.45 [facility] DEPARTMENT OF PATHOLOGY AND GENOMIC MEDICINE pCO2, arterial 16 (LL)Comment: 35 - 45 mmHg [facility] DEPARTMENT OF Result called with PATHOLOGY AND GENOMIC read back to Margy Machado RN/5E 08:39 11/07/2017 slel pO2, arterial 132 (H) 80 - 90 mmHg [facility] DEPARTMENT OF PATHOLOGY AND GENOMIC MEDICINE Bicarbonate, arterial 8.9 (L) 21.0 - 28.0 mmol/L [facility] DEPARTMENT OF PATHOLOGY AND GENOMIC MEDICINE Base excess, arterial -16 (L) -2 - 2 mEq/L [facility] DEPARTMENT OF PATHOLOGY AND GENOMIC MEDICINE O2 saturation, arterial 98 95 - 100 % [facility] DEPARTMENT OF PATHOLOGY AND GENOMIC MEDICINE Specimen Blood Performing Organization Address [facility] Phone Number [facility] DEPARTMENT OF PATHOLOGY [address] [place] [address] AND [id number] Prepare RBC, 4 Units (11/07/2017 7:45 AM CDT)Only the most recent of3 resultswithin the time period is included. Product name Red Blood Cells -1, [facility] DEPARTMENT OF Leukored PATHOLOGY AND GENOMIC MEDICINE Unit number [id number] [facility] DEPARTMENT OF PATHOLOGY AND GENOMIC MEDICINE Product code [id number] [facility] DEPARTMENT OF PATHOLOGY AND GENOMIC MEDICINE Dispense status Transfused [facility] DEPARTMENT OF PATHOLOGY AND GENOMIC MEDICINE Blood expiration date [facility] DEPARTMENT OF PATHOLOGY AND GENOMIC MEDICINE Blood type code 8400 [facility] DEPARTMENT OF PATHOLOGY AND GENOMIC MEDICINE Blood type AB POSITIVE [facility] DEPARTMENT OF PATHOLOGY AND GENOMIC MEDICINE Product name Red Blood Cells -1, [facility] DEPARTMENT OF Leukored PATHOLOGY AND GENOMIC MEDICINE Unit number [id number] [facility] DEPARTMENT OF PATHOLOGY AND GENOMIC MEDICINE Product code [id number] [facility] DEPARTMENT OF PATHOLOGY AND GENOMIC MEDICINE Dispense status Transfused [facility] DEPARTMENT OF PATHOLOGY AND GENOMIC MEDICINE Blood expiration date [facility] DEPARTMENT OF PATHOLOGY AND GENOMIC MEDICINE Blood type code 8400 [facility] DEPARTMENT OF PATHOLOGY AND GENOMIC MEDICINE Blood type AB POSITIVE [facility] DEPARTMENT OF PATHOLOGY AND GENOMIC MEDICINE Performing Organization Address City/[facility] Phone Number [facility] DEPARTMENT OF PATHOLOGY [address] [place] [address] AND [employer] MEDICINE Type and screen (11/07/2017 7:45 AM CDT)Only the most recent of2 resultswithin the time period is included. ABO grouping AB [facility] DEPARTMENT OF PATHOLOGY AND GENOMIC MEDICINE Rh type POS [facility] DEPARTMENT OF PATHOLOGY AND GENOMIC MEDICINE Antibody screen (gel) NEG [facility] DEPARTMENT OF PATHOLOGY AND GENOMIC MEDICINE Performing Organization Address [facility] Phone Number [facility] DEPARTMENT OF PATHOLOGY [address] [place] [address] AND [employer] [facility] Occult blood, stool (11/06/2017 4:00 PM CDT) Occult blood, stool Positive for Occult blood (A) [facility] DEPARTMENT OF Comment: PATHOLOGY AND GENOMIC Specimen Information MEDICINE Specimen Source: Stool Specimen Site: Nonpreserved Specimen Stool - Nonpreserved Performing Organization Address City/[facility] Phone Number [facility] DEPARTMENT OF PATHOLOGY [address] [place] [address] AND [employer] [facility] IR PICC Placement (11/06/2017 2:06 PM CDT) [...] fluoroscopy. The needle was removed and a 5.5-Stateless peel-away sheath was then placed. Under ultrasound guidance, documentation of vessel patency, needle access with permanent recording, and reporting are performed followed by placement of a sheath in the right basilic vein. A 38 cm long 5-Stateless dual-lumen Power PICC was then deployed over [...] fluoroscopy. The needle was removed and a 5.5-Stateless peel-away sheath was then placed. Under ultrasound guidance, documentation of vessel patency, needle access with permanent recording, and reporting are performed followed by placement of a sheath in the right basilic vein. A 38 cm long 5-Stateless dual-lumen Power PICC was then deployed over [...] Technically successful PICC insertion. Performing Organization Address [facility]/State/Zipcode Phone Number [facility] [address] [place] [address] [place] Guided Vascular Access (11/06/2017 2:06 PM CDT) Narrative Performed At Procedure: PICC insertion. [facility] Clinical indication: Need for long-term intravenous [...] fluoroscopy. The needle was removed and a 5.5-Stateless peel-away sheath was then placed. Under ultrasound guidance, documentation of vessel patency, needle access with permanent recording, and reporting are performed followed by placement of a sheath in the right basilic vein. A 38 cm long 5-Stateless dual-lumen Power PICC was then deployed over [...] fluoroscopy. The needle was removed and a 5.5-Stateless peel-away sheath was then placed. Under ultrasound guidance, documentation of vessel patency, needle access with permanent recording, and reporting are performed followed by placement of a sheath in the right basilic vein. A 38 cm long 5-Stateless dual-lumen Power PICC was then deployed over [...] Performing Organization Address City/State/Zipcode Phone Number [facility] [address] [place] [address] duplex arterial lower extremity (11/05/2017 10:49 AM [...] INDEX: Posterior tibial: Noncompressible. Dorsalis pedis: Noncompressible. [facility]-[id number] [place]LSON Guidelines: >1.4: Calcified Vessel 0.9-1.4: Normal 0.7-0.89: [...] INDEX: Posterior tibial: Noncompressible. Dorsalis pedis: Noncompressible. [facility]-[id number] [place]EL[place] Guidelines: >1.4: Calcified Vessel 0.9-1.4: Normal 0.7-0.89: Mild PAD 0.51-0.69: Moderate PAD <0.5: Severe PAD Performing Organization Address [facility] Phone Number [facility] [address] [place] [address] XR Chest 1 Vw Portable (11/05/2017 5:40 AM CDT)Only the most recent of2 resultswithin the time period is included. Narrative Performed At EXAMINATION:XR CHEST 1 VW PORTABLE [facility] CLINICAL HISTORY:Pneumonia COMPARISON:Most Recent IMPRESSION: Heart and mediastinum are stable. Left-sided AICD again noted. Perihilar interstitial and patchy opacities without new infiltrates. Bones are osteopenic. [facility]-[id number] Procedure Note Interface, Radiology Results Incoming - 11/05/2017 7:31 AM CDT EXAMINATION: XR CHEST 1 VW PORTABLE CLINICAL HISTORY: Pneumonia COMPARISON: Most Recent IMPRESSION: Heart and mediastinum are stable. Left-sided AICD again noted. Perihilar interstitial and patchy opacities without new infiltrates. Bones are osteopenic. [facility]-[id number] Performing Organization Address [facility] Phone Number [facility] [address] [place] [address] Total iron binding capacity (11/05/2017 4:35 AM CDT) Iron level 106 37 - 145 ug/dL [facility] DEPARTMENT OF PATHOLOGY AND GENOMIC MEDICINE Iron binding capacity 137 (L) 260 - 460 ug/dL [facility] DEPARTMENT OF PATHOLOGY AND GENOMIC MEDICINE % Saturation 77.4 (H) 15.0 - 38.0 % [facility] DEPARTMENT OF PATHOLOGY AND GENOMIC MEDICINE Specimen Plasma specimen Performing Organization Address [facility] Phone Number [facility] DEPARTMENT OF PATHOLOGY [address] [place] [address] AND GENOMIC MEDICINE Folate level (11/05/2017 4:35 AM CDT) Folate 2.9 (L) 4.8 - 24.2 ng/mL [facility] DEPARTMENT OF PATHOLOGY AND GENOMIC MEDICINE Specimen Serum Performing Organization Address City/[facility]/Zipcode Phone Number [facility] DEPARTMENT OF PATHOLOGY AND [address] [place] [address] Ferritin level (11/05/2017 4:35 AM CDT) Ferritin level 439 (H) 13 - 150 ng/mL [facility] DEPARTMENT OF PATHOLOGY AND GENOMIC MEDICINE Specimen Plasma specimen Performing Organization Address City/[facility] Phone Number [facility] DEPARTMENT OF PATHOLOGY AND [address] [place] [address] Prepare platelet pheresis, 1 Units (11/04/2017 9:10 AM CDT) Product name Apheresis PLT, Leukored IRR [facility] DEPARTMENT OF 2 PATHOLOGY AND GENOMIC MEDICINE Unit number [id number] [facility] DEPARTMENT OF PATHOLOGY AND GENOMIC MEDICINE Product code [id number] [facility] DEPARTMENT OF PATHOLOGY AND GENOMIC MEDICINE Dispense status Transfused [facility] DEPARTMENT OF PATHOLOGY AND GENOMIC MEDICINE Blood expiration date [facility] DEPARTMENT OF PATHOLOGY AND GENOMIC MEDICINE Blood type code 6200 [facility] DEPARTMENT OF PATHOLOGY AND GENOMIC MEDICINE Blood type A POSITIVE [facility] DEPARTMENT OF PATHOLOGY AND GENOMIC MEDICINE Performing Organization Address City/[facility] Phone Number [facility] DEPARTMENT OF PATHOLOGY [address] [place] [address] AND [employer] MEDICINE Prepare fresh frozen plasma, 4 Units (11/04/2017 9:10 AM CDT) Product name Thawed Plasma [facility] DEPARTMENT OF PATHOLOGY AND GENOMIC MEDICINE Unit number [id number] [facility] DEPARTMENT OF PATHOLOGY AND GENOMIC MEDICINE Product code [id number] [facility] DEPARTMENT OF PATHOLOGY AND GENOMIC MEDICINE Dispense status Transfused [facility] DEPARTMENT OF PATHOLOGY AND GENOMIC MEDICINE Blood expiration date [id number] [facility] DEPARTMENT OF PATHOLOGY AND GENOMIC MEDICINE Blood type code 8400 [facility] DEPARTMENT OF PATHOLOGY AND GENOMIC MEDICINE Blood type AB POSITIVE [facility] DEPARTMENT OF PATHOLOGY AND GENOMIC MEDICINE Product name Thawed Plasma [facility] DEPARTMENT OF PATHOLOGY AND GENOMIC MEDICINE Unit number [id number] [facility] DEPARTMENT OF PATHOLOGY AND GENOMIC MEDICINE Product code [id number] [facility] DEPARTMENT OF PATHOLOGY AND GENOMIC MEDICINE Dispense status Transfused [facility] DEPARTMENT OF PATHOLOGY AND GENOMIC MEDICINE Blood expiration date [facility] DEPARTMENT OF PATHOLOGY AND GENOMIC MEDICINE Blood type code 8400 [facility] DEPARTMENT OF PATHOLOGY AND GENOMIC MEDICINE Blood type AB POSITIVE [facility] DEPARTMENT OF PATHOLOGY AND GENOMIC MEDICINE Product name Thawed Plasma [facility] DEPARTMENT OF PATHOLOGY AND GENOMIC MEDICINE Unit number [id number] [facility] DEPARTMENT OF PATHOLOGY AND GENOMIC MEDICINE Product code [id number] [facility] DEPARTMENT OF PATHOLOGY AND GENOMIC MEDICINE Dispense status Transfused [facility] DEPARTMENT OF PATHOLOGY AND GENOMIC MEDICINE Blood expiration date [facility] DEPARTMENT OF PATHOLOGY AND GENOMIC MEDICINE Blood type code 8400 [facility] DEPARTMENT OF PATHOLOGY AND GENOMIC MEDICINE Blood type AB POSITIVE [facility] DEPARTMENT OF PATHOLOGY AND GENOMIC MEDICINE Product name Thawed Plasma [facility] DEPARTMENT OF PATHOLOGY AND GENOMIC MEDICINE Unit number [id number] [facility] DEPARTMENT OF PATHOLOGY AND GENOMIC MEDICINE Product code [id number] [facility] DEPARTMENT OF PATHOLOGY AND GENOMIC MEDICINE Dispense status Transfused [facility] DEPARTMENT OF PATHOLOGY AND GENOMIC MEDICINE Blood expiration date [facility] DEPARTMENT OF PATHOLOGY AND GENOMIC MEDICINE Blood type code 8400 [facility] DEPARTMENT OF PATHOLOGY AND GENOMIC MEDICINE Blood type AB POSITIVE [facility] DEPARTMENT OF PATHOLOGY AND GENOMIC MEDICINE Specimen Blood Performing Organization Address [facility] Phone Number [facility] DEPARTMENT OF PATHOLOGY [address] [place] [address] AND [facility] Thyroid stimulating hormone (11/04/2017 4:40 AM CDT) TSH 2.28 0.27 - 4.20 uIU/mL [facility] DEPARTMENT OF PATHOLOGY AND GENOMIC MEDICINE Specimen Plasma specimen Performing Organization Address [facility] Phone Number [facility] DEPARTMENT OF PATHOLOGY [address] [place] [address] AND [facility] Digoxin level (11/04/2017 4:40 AM CDT) Digoxin 3.2 (HH) 0.8 - 2.0 ng/mL [facility] DEPARTMENT OF PATHOLOGY Comment: AND [employer] MEDICINE For valid Digoxin results, at least 6 hours should elapse between time of last dose and collection of blood. Otherwise, result may be false high. Therapeutic Range: 0.8 - 2.0 ng/mL Final results called to and read back by JOAN MATTHEWS 11/04/2017 05:58 [place] Specimen Plasma specimen Performing Organization Address City/[facility] Phone Number [facility] DEPARTMENT OF PATHOLOGY [address] [place] [address] AND [employer] [facility] Urinalysis screen and microscopy, with reflex to culture (11/03/2017 2:45 PM CDT) Specimen site [place] [facility] DEPARTMENT OF PATHOLOGY AND GENOMIC MEDICINE Color, UA Yellow [facility] DEPARTMENT OF PATHOLOGY AND GENOMIC MEDICINE Appearance, UA Turbid [facility] DEPARTMENT OF PATHOLOGY AND GENOMIC MEDICINE Specific gravity, UA 1.009 1.001 - 1.030 [facility] DEPARTMENT OF PATHOLOGY AND GENOMIC MEDICINE pH, UA 5.0 5.0 - 9.0 [facility] DEPARTMENT OF PATHOLOGY AND GENOMIC MEDICINE Protein, UA 1+ (A) Negative [facility] DEPARTMENT OF PATHOLOGY AND GENOMIC MEDICINE Glucose, UA Negative Negative [facility] DEPARTMENT OF PATHOLOGY AND GENOMIC MEDICINE Ketones, UA Trace (A) Negative [facility] DEPARTMENT OF PATHOLOGY AND GENOMIC MEDICINE Bilirubin, UA Negative Negative [facility] DEPARTMENT OF PATHOLOGY AND GENOMIC MEDICINE Blood, UA Moderate (A) Negative [facility] DEPARTMENT OF PATHOLOGY AND GENOMIC MEDICINE Nitrite, UA Negative Negative [facility] DEPARTMENT OF PATHOLOGY AND GENOMIC MEDICINE Urobilinogen, UA <2.0 <2.0 E.U./dL [facility] DEPARTMENT OF PATHOLOGY AND GENOMIC MEDICINE Leukocyte esterase, UA Large (A) Negative [facility] DEPARTMENT OF PATHOLOGY AND GENOMIC MEDICINE Epithelial cells, UA 7 /HPF [facility] DEPARTMENT OF PATHOLOGY AND GENOMIC MEDICINE WBC, UA >200 (H) 0 - 4 /HPF [facility] DEPARTMENT OF PATHOLOGY AND GENOMIC MEDICINE RBC, UA 84 (H) 0 - 2 /HPF [facility] DEPARTMENT OF PATHOLOGY AND GENOMIC MEDICINE Bacteria, UA Few None seen [facility] DEPARTMENT OF PATHOLOGY AND GENOMIC MEDICINE WBC clumps, UA Many (A) [facility] DEPARTMENT OF PATHOLOGY AND GENOMIC MEDICINE Yeast, UA Few (A) [facility] DEPARTMENT OF PATHOLOGY AND GENOMIC MEDICINE Yeast with pseudohyphae, UA None seen [facility] DEPARTMENT OF PATHOLOGY AND GENOMIC MEDICINE Hyaline casts, UA >20 (A) /LPF [facility] DEPARTMENT OF PATHOLOGY AND GENOMIC MEDICINE Specimen Urine Performing Organization Address City/State/Zipcode Phone Number [facility] DEPARTMENT OF PATHOLOGY [address] [place] [address] AND [employer] MEDICINE Gram stain (11/03/2017 2:45 PM CDT) Gram stain result Many WBC's [facility] DEPARTMENT OF PATHOLOGY AND Many Yeast GENOMIC MEDICINE Comment: Specimen Information Specimen Source: Urine Specimen Site: [place] Specimen Urine - [place] Performing Organization Address City/State/[facility] Phone Number [facility] DEPARTMENT OF PATHOLOGY AND [address] [place] [id number] GENOMIC MEDICINE Urine culture (11/03/2017 2:45 PM CDT) Urine culture isolate Rosy glabrata [facility] DEPARTMENT OF >10-5 cfu/ml PATHOLOGY AND GENOMIC The performance characteristics of this assay on this isolate MEDICINE were validated by the Microbiology Laboratory at [facility].This source has not been approved by [...] BP >256 mcg/mL: Resistant Performing Organization Address [facility] Phone Number [facility] DEPARTMENT OF PATHOLOGY AND [address] [place] [phone] [facility] Blood culture, aerobic & anaerobic (11/03/2017 1:12 AM CDT)Only the most recent of2 resultswithin the time period is included. Blood culture isolate No growth after 5 days of incubation. [facility] DEPARTMENT OF Comment: PATHOLOGY AND GENOMIC Specimen Information MEDICINE Specimen Source: Blood Specimen Site: Hand Left Specimen Blood - Antecubital, right Performing Organization Address [facility] Phone Number [facility] DEPARTMENT OF PATHOLOGY AND [address] [place] [id number] [employer] [facility] after 09/19/2017 Insurance Payer Benefit Plan / Group Subscriber ID Type Phone Address MEDICAID MEDICAID xxxxxxxxx Medicaid MEDICARE MEDICARE PART A AND B xxxxxxxxxx Medicare [place], [place] Advance Directives Patient has advance care planning documents on file. For more information, please contact:[address] [place] [address]
--- OUTSIDE RECORDS SUMMARY | 2018-09-20 09:54 | XMS REPORT ---
:1935 [facility] Address [address] [place] [address] [address] [place] [address] Care Team Providers Name Role Phone HARDIK [...] Department ID 2017-09-10 2017-09-10 Outpatient Telma [facility] [id number] 18:56:00 18:56:00 HARDIK 2017-07-01 2017-07-04 Inpatient DAWOOD CARVALHO TELE [id number] 22:15:00 15:46:00 [place] Results Test Description Test Time Test Comments Text Results Atomic Results Result Comments Sed Rate ESR ([place]) 2017-09-10 22:33:00 Test Item Value Reference Range Comments ESR (test code=HESR) 44 mm/Hr 0-20 CBC with [id number] 20:59:00 Test Item Value Reference Range Comments [...] Lymph Abs (test code=ALYMPH) 1.6 K/cumm 0.5-4.6 [place] Abs (test code=AMONO) 0.5 K/cumm 0.0-1.2 Eos Abs (test code=AEOS) 0.10 K/cumm 0.00-0.74 Baso Abs (test code=ABASO) 0.0 K/cumm 0.00-0.21 Hypochromic (test code=HYPO) Slight Lipid [id number] 20:09:00 Test Item Value Reference Range Comments Cholesterol (test 208 mg/dL 0-200 code=CHOL) Triglycerides (test 178 mg/dL 9-200 code=TRIG) HDL (test code=HDL) 45 mg/dL 50-60 Chol/HDL (test 4.6 Ratio 0.0-4.4 code=CHOLPHDL) LDL, Calculated (test 127 mg/dL 0-130 (NOTE)RISK OF HEART code=LDLC) DISEASEPublished by [place] Heart AssociationAnalyte Optimal Boderline Increased RiskCHOL <200 200-239 >240TRIG <150 150-199 >200HDL Male: >60 <40HDL Female: >60 <50LDL <100 130-159 >160LDL NEAR OPTIMAL IS 100-129 VLDL (test code=VLDL) 36 mg/dL 5-40 LDL/HDL (test code=LDLPHDL) 3 [id number] 20:09:00 Test Item Value Reference Range Comments Lipase (test code=LIP) 31 U/L 13-60 [id number] 20:09:00 Test Item Value Reference Range Comments Amylase (test code=SHAKIR) 92 U/L 28-100 [id number] 20:09:00 Test Item Value Reference Range Comments NT ProBnp (test code=PBNP) 90703 pg/mL 0-449 Comprehensive Metabolic [id number] 20:09:00 Test Item Value Reference Range Comments [...] race is not provided, and the patient isAfrican-Gambian, multiply by 1.212. If sex is not provided, and thepatient is female, multiply by 0.742. Results for patients <18 years ofage have not been validated by the MDRD study and should be interpretedwith caution.eGFR Result Interpretation:eGFR > or=60 is in the Normal RangeeGFR < 60 may mean kidney diseaseeGFR < 15 may mean kidney failureRanges recommended by the National Kidney Foundation,http://nkdep.nih .gov BLOOD [id number] 23:30:00 Test Item Value Reference Range Comments Culture Observations (test code=COB1) NO GROWTH AFTER 5 DAYS BLOOD [id number] 23:30:00 Test Item Value Reference Range Comments Culture Observations (test code=COB1) NO GROWTH AFTER 5 DAYS WOUND/SKIN/ABS.&GRAMSTAIN [id number] 08:20:00 Test Item Value Reference Range Comments [...] (test code=lev) ug/mL GLUCOMETER GLUCOSE- LAB USE [id number] 11:39:00 Test Item Value Reference Range Comments GLUCOMETER (test code=GMG) 113 mg/dL 70-100 DAILY MAINTENANCEMeter ID: [id number]: 9086 JAYY NAVARRO URINE [id number] 11:21:00 Test Item Value Reference Range Comments Isolate 1 (test code=ISO1) Pseudomonas aeruginosa piperacillin/tazobactam (test ug/mL code=tzp) ceftazidime (test code=santos) ug/mL cefepime (test code=fep) ug/mL meropenem (test code=mem) ug/mL gentamicin (test code=gm) ug/mL tobramycin (test code=tob) ug/mL levofloxacin (test code=lev) ug/mL WOUND/SKIN/ABS.&GRAMSTAIN [id number] 10:08:00 Test Item Value Reference Range Comments [...] (test code=lev) ug/mL GLUCOMETER GLUCOSE- LAB USE [id number] 05:13:00 Test Item Value Reference Range Comments GLUCOMETER (test code=GMG) 81 mg/dL 70-100 CLEANED METERMeter ID: [id number]: [id number] LETECIA GOLDMAN PRO TIME AND [id number] 04:39:00 Test Item Value Reference Range Comments [...] Heparin. Order Code is ANTI-XA COMPREHENSIVE METABOLIC [id number] 04:32:00 Test Item Value Reference Range Comments [...] (test code=RBCMOR) NORMAL GLUCOMETER GLUCOSE- LAB USE [id number] 21:05:00 Test Item Value Reference Range Comments GLUCOMETER (test code=GMG) 116 mg/dL 70-100 Meter ID: [id number]: 5187 ROBERT GOLDMAN GLUCOMETER GLUCOSE- LAB USE [id number] 16:42:00 Test Item Value Reference Range Comments GLUCOMETER (test code=GMG) 247 mg/dL 70-100 DAILY MAINTENANCEMeter ID: [id number]: 9086 OravelEZ GLUCOMETER GLUCOSE- LAB USE [id number] 13:21:00 Test Item Value Reference Range Comments GLUCOMETER (test code=GMG) 206 mg/dL 70-100 DAILY MAINTENANCEMeter ID: [id number]: 9086 JAYY NAVARRO U/S KIDNEY (RENAL)2017-07-03 12:24:18RENAL ULTRASOUNDLocation Code: [id number] HISTORY: arfCOMPARISON: None.COMMENT: Real-time sonographic images of [...] acute abnormality.U/S ART FLW DOPPLER STELLA LOW [id number] 11:52:11BILATERAL LOWER EXTREMITY ARTERIAL DOPPLER :Location code: [id number] HISTORY: Bilateral leg pain with peripheral vascular [...] RBC MORPH (test code=RBCMOR) NORMAL COMPREHENSIVE METABOLIC [id number] 06:16:00 Test Item Value Reference Range Comments [...] 8 IU/L <=78 GLUCOMETER GLUCOSE- LAB USE [id number] 05:30:00 Test Item Value Reference Range Comments GLUCOMETER (test code=GMG) 118 mg/dL 70-100 CLEANED METERMeter ID: [id number]: [address]SU GLUCOMETER GLUCOSE- LAB USE [id number] 22:27:00 Test Item Value Reference Range Comments GLUCOMETER (test code=GMG) 158 mg/dL 70-100 Meter ID: [id number]: [address] GLUCOMETER GLUCOSE- LAB USE [id number] 21:35:00 Test Item Value Reference Range Comments GLUCOMETER (test code=GMG) 63 mg/dL 70-100 Meter ID: [id number]: [address] EOSINOPHIL SMEAR [id number] 19:44:00 Test Item Value Reference Range Comments EO URINE (test code=EOU) MODERATE /OIF NONE SEEN CREATININE RANDOM [id number] 19:30:00 Test Item Value Reference Range Comments CREErik DOE (test code=CREAR) 47.8 mg/dL NRR (test code=NRR) * NO REFRENCE RANGE AVAILABLE FOR RANDOM SPECIMEN* PROTEIN URINE [id number] 19:18:00 Test Item Value Reference Range Comments PROT NADER (test code=HI) 76 mg/dL NRR (test code=NRR) * NO REFRENCE RANGE AVAILABLE FOR RANDOM SPECIMEN* GLUCOMETER GLUCOSE- LAB USE [id number] 15:24:00 Test Item Value Reference Range Comments GLUCOMETER (test code=GMG) 148 mg/dL 70-100 CLEANED METERMeter ID: [id number]: 4787 ISAAC YU GLUCOMETER GLUCOSE- LAB USE [id number] 12:43:00 Test Item Value Reference Range Comments GLUCOMETER (test code=GMG) 184 mg/dL 70-100 Meter ID: [id number]: 5683 NICOL HERNADEZ CARDIAC [id number] 12:26:00 Test Item Value Reference Range Comments TROPONIN I (test code=A84) 0.098 ng/mL 0.000-0.045 CKMB (test code=A49) 5.0 ng/mL <=3.6 CPK (test code=32A) 58 IU/L 26-192 [id number] 12:23:00 Test Item Value Reference Range Comments Hb A1C % (test code=HBA) 8.8 % 4.2-6.3 URINALYSIS WITH [id number] 12:15:00 Test Item Value Reference Range Comments [...] NO RBC MORPH (test code=RBCMOR) NORMAL CARDIAC [id number] 05:42:00 Test Item Value Reference Range Comments TROPONIN I (test code=A84) 0.105 ng/mL 0.000-0.045 CKMB (test code=A49) 4.2 ng/mL <=3.6 CPK (test code=32A) 47 IU/L 26-192 CBC with [id number] 05:10:00 Test Item Value Reference Range Comments [...] Lymph Abs (test code=ALYMPH) 1.2 K/cumm 0.5-4.6 [place] Abs (test code=AMONO) 0.4 K/cumm 0.0-1.2 Eos Abs (test code=AEOS) 0.07 K/cumm 0.00-0.74 Baso Abs (test code=ABASO) 0.0 K/cumm 0.00-0.21 RBC Morphology (test Slight Hypochromia code=RBCMRPH) Platelet Est (test code=PLTEST) Adequate Platelets on Smear Glycosylated [id number] 03:33:00 Test Item Value Reference Range Comments HBA1c (test code=HBA1C) 9.5 % 4.8-5.9 Comprehensive Metabolic [id number] 00:02:00 Test Item Value Reference Range Comments [...] race is not provided, and the patient isAfrican-Gambian, multiply by 1.212. If sex is not provided, and thepatient is female, multiply by 0.742. Results for patients <18 years ofage have not been validated by the MDRD study and should be interpretedwith caution.eGFR Result Interpretation:eGFR > or=60 is in the Normal RangeeGFR < 60 may mean kidney diseaseeGFR < 15 may mean kidney failureRanges recommended by the National Kidney Foundation,http://nkdep.nih. gov Lipid [id number] 00:02:00 Test Item Value Reference Range Comments Cholesterol (test 251 mg/dL 0-200 code=CHOL) Triglycerides (test 201 mg/dL 9-200 code=TRIG) HDL (test code=HDL) 44 mg/dL 50-60 Chol/HDL (test 5.7 Ratio 0.0-4.4 code=CHOLPHDL) LDL, Calculated (test 167 0-130 (NOTE)RISK OF HEART code=LDLC) DISEASEPublished by [place] Heart AssociationAnalyte Optimal Boderline Increased RiskCHOL <200 200-239 >240TRIG <150 150-199 >200HDL Male: >60 <40HDL Female: >60 <50LDL <100 130-159 >160LDL NEAR OPTIMAL IS 100-129 VLDL (test code=VLDL) 40 mg/dL 5-40 LDL/HDL (test code=LDLPHDL) 4
[2018-09-20 11:01] LABS: Absolute Monocytes 0.8 K/uL (0.1-1.3); Absolute Neutrophil 17.3 K/uL (1.8-8.0); Basophils % 0.1 % (0-1.3); Eosinophils % 0.2 % (0-4.4); Hematocrit 23.7 % (36.0-45.0); Lymphocytes % 5.3 % (15.3-44.8); MPV 7.8 fL (7.6-11.3); Monocytes % 4.4 % (3.3-12.3); RBC Red Blood Cell Count 2.81 M/uL (3.86-4.86)
[2018-09-20] MEDS ORDERED: PIPER/TAZO/NS 3.375gm 3.375 GM/100 ML BAG ONE (11:17)
[2018-09-20 11:23] LABS: AST/SGOT 8 U/L (15-37); Albumin 2.5 g/dL (3.4-5.0); Alkaline Phosphatase 96 U/L (45-117); BUN Blood Urea Nitrogen 104 mg/dL (7-18); Bicarbonate 19 mmol/L (21-32); Bilirubin Total 0.3 mg/dL (0.2-1.0); Glucose Level 78 mg/dL (74-106); Protein, Total 8.1 g/dL (6.4-8.2); Sodium Level 131 mmol/L (136-145)
[2018-09-20 11:24] LABS: Troponin (Emerg Dept Use Only) 0.04 ng/mL (0.0-0.045)
[2018-09-20 11:25] LABS: ALT/SGPT < 6 U/L (12-78); Potassium 5.6 mmol/L (3.5-5.1)
--- NOTE | 2018-09-20 11:31 | RAD REPORT ---
EXAM DESCRIPTION: RAD - Foot Left 3 View - 09/20/2018 10:59 am CLINICAL HISTORY: wound infection COMPARISON: Os Calcis (Calcaneus) Heel dated 05/02/2017; Os Calcis (Calcaneus) Heel dated 01/23/2017 FINDINGS: Advanced osteopenia is seen. Vascular calcification is noted. Flatfoot deformity is presen t with prominent calcaneal spurs. Osteomyelitis is not seen on radiograph, however bone detail is fierro ited due to the high degree of osteopenia.
--- NOTE | 2018-09-20 11:32 | RAD REPORT ---
EXAM DESCRIPTION: RAD - Foot Right 3 View - 09/20/2018 10:59 am CLINICAL HISTORY: wound infection COMPARISON: Foot Right 3 View dated 03/20/2018; Os Calcis (Calcaneus) Heel dated 05/02/2017 FINDINGS: Large soft tissue wound is seen adjacent to the base of the fifth metatarsal. Heavy vascul ar calcifications are seen with flatfoot deformity and large plantar calcaneal spur. Bony destructive changes to indicate osteomyelitis is not seen, however there may be some exposed bone at the site of the wound which would indicate the presence of osteomyelitis.
[2018-09-20 11:52] LABS: Anisocytosis 1+; Blood Morphology Comment NOTED (NOT SEEN); Poikilocytosis 1+
[2018-09-20 12:38] LABS: Platelet Estimate ADEQ
[2018-09-20] MEDS ORDERED: PANTOPRAZOLE 40 MG INJ ONE (12:42)
--- NOTE | 2018-09-20 12:48 | RAD REPORT ---
EXAM DESCRIPTION: RAD - Chest Single View - 09/20/2018 12:31 pm CLINICAL HISTORY: ams Chest pain. COMPARISON: Chest Pa And Lat (2 Views) dated 07/03/2018; Chest Single View dated 03/03/2017; ABDOMEN 1 VIEW KUB dated 01/28/2012; CHEST PA AND LAT 2 VIEW dated 01/11/2012Chest Single View dated 04/11/2018; C hest Single View dated 04/08/2018; Chest Single View dated 02/13/2018; Chest Single View dated 02/12/2018 FINDINGS: Portable technique limits examination quality. Mild interstitial pulmonary edema suspected. The heart is upper limit normal in size multilead pacer/ defibrillator device. No displaced fractures.Aortic atherosclerosis. IMPRESSION: Mild CHF versus volume overload.
[2018-09-20 12:54] LABS: Protime INR 1.05
[2018-09-20] MEDS ORDERED: NA CHLORIDE 0.9% 1,000 ML ONE (13:28)
[2018-09-20 14:33] LABS: Urine Blood TRACE (NEG); Urine Glucose NEGATIVE (NEG); Urine Protein TRACE (NEG); Urine pH 5.5 (5.0-7.0)
--- NOTE | 2018-09-20 14:42 | ER ---
Nurse's Notes [facility] Name: Karissa Frias Age: 83 yrs Sex: Female : 1935 Arrival Date: 09/20/2018 Time: 09:53 Bed 19 Private MD: Carlton Owen E Diagnosis: Anemia;GI BLEED;Hyperkalemia;Acute Kidney Injury;Cellulitis of the right foot;Wound Infection Presentation: 09/20 09:54 Presenting complaint: Patient states: been going to the wound healing clinic once a hj week but the R foot is getting worse and smells bad; denies fever and chills;. Transition of care: patient was not received from another setting of care. Onset of symptoms was September 20, 2018. Risk Assessment: Do you want to hurt yourself or someone else? Patient reports no desire to harm self or others. Initial Sepsis Screen: Does the patient meet any 2 criteria? Yes Does the patient have a suspected source of infection? Yes: Skin breakdown/wound. Care prior to arrival: None. 09:54 Method Of Arrival: Ambulatory 09:54 Acuity: LAURO 3 Triage Assessment: 09:58 General: Appears in no apparent distress. uncomfortable, Behavior is calm, cooperative, hj appropriate for age. Pain: Denies pain. Complains of pain in right foot and left foot Pain currently is 10 out of 10 on a pain scale. 09:58 General: Smells of wound infection;. hj Historical: - Allergies: 09:57 No Known Allergies; hj - Home Meds: 09:57 acetaminophen 325 mg Oral tab 2 tabs every 4 hours for Pain [Active]; aspirin 81 mg hj Oral TbEC 1 tab once daily [Active]; carvedilol 12.5 mg Oral tab 1 tab 2 times per day [Active]; digoxin 125 mcg Oral tab 1 tab once daily [Active]; furosemide 40 mg Oral tab 1 tab 2 times per day [Active]; hydralazine 25 mg Oral tab [Active]; melatonin 3 mg Oral tab nightly [Active]; metformin 500 mg Oral tab 1 tab 2 times per day [Active]; mupirocin 2 % Topical oint twice a day [Active]; Nephro-Josh 0.8 mg Oral tab [Active]; nifedipine 90 mg Oral TbER 1 tab once daily [Active]; Plavix 75 mg Oral tab 1 tab once daily [Active]; - PMHx: 09:57 Anemia; Atrial Fib; CAD; CHF; Diabetes - NIDDM; DYSPHAGIA; High Cholesterol; hj Hypertension; osteomyelitis; Renal Disease; - PSHx: 09:57 pacer/defib; PEG tube; triple bypass; hj - Immunization history:: Adult Immunizations up to date. - Social history:: Smoking status: Patient/guardian denies using tobacco, Patient/guardian denies using alcohol. - Ebola Screening: : Patient negative for fever greater than or equal to 101.5 degrees Fahrenheit, and additional compatible Ebola Virus Disease symptoms Patient denies exposure to infectious person Patient denies travel to an Ebola-affected area in the 21 days before illness onset. Screenin:57 Abuse screen: Denies threats or abuse. Denies injuries from another. Nutritional hj screening: No deficits noted. Tuberculosis screening: No symptoms or risk factors identified. Fall Risk None identified. Assessment: 10:25 General: Appears in no apparent distress. ill, cachectic, Behavior is calm, em cooperative, Denies fever. Pain: Complains of pain in right foot. Neuro: Level of Consciousness is awake, alert, obeys commands, Oriented to person, place, time, situation. Cardiovascular: Denies chest pain. Respiratory: Airway is patent Respiratory effort is even, unlabored, Respiratory pattern is regular, symmetrical. GI: Abdomen is flat. Derm: Skin is pink, warm \T\ dry. Wound noted right foot and left foot. 10:35 Reassessment: Patient appears in no apparent distress at this time. No changes from iw previously documented assessment. I agree with above assessment by Can Plascencia LVN. 12:00 Reassessment: Patient appears in no apparent distress at this time. chaperoned provider em during rectal exam, daughter at bedside. 12:35 Reassessment: Patient appears in no apparent distress at this time. Patient and/or em family updated on plan of care and expected duration. Pain level reassessed. Patient is alert, oriented x 3, equal unlabored respirations, skin warm/dry/pink. 14:00 Reassessment: Patient appears in no apparent distress at this time. Patient and/or em family updated on plan of care and expected duration. Pain level reassessed. Patient is alert, oriented x 3, equal unlabored respirations, skin warm/dry/pink. pending transfer, resting comfortably in bed, family at bedside. 15:02 Reassessment: Patient appears in no apparent distress at this time. No changes from em previously documented assessment. Patient and/or family updated on plan of care and expected duration. Pain level reassessed. Patient is alert, oriented x 3, equal unlabored respirations, skin warm/dry/pink. family at bedside feeding pt lunch, tolerated well. 15:05 Reassessment: report called to Marianne at [facility], pending EMS transport. em 15:44 Reassessment: report given to EMS. em Vital Signs: 09:59 BP 139 / 65; Pulse 72; Resp 18; Temp 97.6(O); Pulse Ox 100% on R/A; Weight 56.7 kg; hj Height 5 ft. 7 in. (170.18 cm); Pain 10/10; 11:00 BP 138 / 63; Pulse 60; Resp 19; Pulse Ox 100% on R/A; em 12:00 BP 119 / 65; Pulse 60; Resp 16; Pulse Ox 100% on R/A; Pain 0/10; em 13:00 BP 116 / 65; Pulse 60; Resp 18; Pulse Ox 99% on R/A; em 14:00 BP 114 / 62; Pulse 60; Resp 14; Pulse Ox 100% on R/A; em 15:00 BP 109 / 67; Pulse 60; Resp 18; Pulse Ox 99% on R/A; em 09:59 Body Mass Index 19.58 (56.70 kg, 170.18 cm) ED Course: 09:53 Patient arrived in ED. mr 09:53 Carlton Owen MD is Private Physician. mr 09:56 Triage completed. hj 09:58 Arm band placed on right wrist. hj 09:58 Patient has correct armband on for positive identification. Placed in gown. Bed in low hj position. Call light in reach. Side rails up X 1. Adult w/ patient. 10:07 Dre Beavers PA is PHCP. [facility] 10:07 Viraj Marie MD is Attending Physician. [facility] 10:15 Can Plascencia LVN is Primary Nurse. em 10:44 Inserted saline lock: 20 gauge in right antecubital area, using aseptic technique. mh5 Blood collected. 10:45 Initial lab(s) drawn, by ny, sent to lab. First set of blood cultures drawn by ny, 5 Second set of blood cultures drawn by ny, Wound culture swab sent to lab. 10:46 Wound Culture Sent. mh5 10:47 Blood Culture Adult (2) Sent. mh5 10:47 Lactate Sent. mh5 10:47 Procalcitonin Sent. mh5 10:47 CMP Sent. mh5 10:47 CBC with Diff Sent. mh5 11:00 Foot Right 3 View XRAY In Process Unspecified. EDMS 11:00 Foot Left 3 View XRAY In Process Unspecified. EDMS 11:00 Troponin (emerg Dept Use Only) Sent. mh5 11:00 CK Sent. mh5 11:01 Wound Culture Sent. mh5 11:01 Blood Culture Adult (2) Sent. 5 11:33 Type And Screen Sent. 5 12:32 Chest Single View XRAY In Process Unspecified. EDMS 13:30 transfer initiated with Nini at the [facility]. eb 13:37 Warm blanket given. Pillow given. residential monitor on. Pulse ox on. NIBP on. 5 13:37 Urine collected: Zarco catheter specimen, cloudy. 5 14:35 administrative approval given by Jessa Negrete Dr. Ramona Mai has accepted the eb patient in transfer to [facility]/ patient is going to 697/ report to be called to [phone]. 15:44 No provider procedures requiring assistance completed. Patient transferred, IV remains em in place. Administered Medications: 11:11 Drug: Zosyn 3.375 grams Route: IVPB; Infused Over: 60 mins; Site: right antecubital; em 12:30 Follow up: Response: No adverse reaction; IV Status: Completed infusion; IV Intake: em 100ml 12:30 Drug: ProTONIX 40 mg Route: IVP; Site: right antecubital; la1 13:09 Follow up: Response: No adverse reaction em 13:22 Drug: NS 0.9% 1000 ml Route: IV; Rate: 125 ml/hr; Site: right antecubital; em 15:54 Follow up: IV Status: Infusion continued upon transfer; IV Intake: 300ml em Intake: 12:30 IV: 100ml; Total: 100ml. em 15:54 IV: 300ml; Total: 400ml. em Outcome: 14:42 ER care complete, transfer ordered by MD. su 15:44 Transferred by ground EMS to [facility], Transfer form completed. X-rays em sent w/ patient. 15:44 Condition: good 15:44 Instructed on the need for transfer, Demonstrated understanding of instructions. 15:55 Patient left the ED. em Signatures: Dispatcher [employer] EDMS Dre Beavers PA PA jmm Marion Marin, Can, [employer] em Annabel Crain, Alvin Snow RN, RN RN José Miguel Adkins RN RN Codi Rodriguez [facility] Lisa Gusman Corrections: (The following items were deleted from the chart) 09:59 09:58 Pain: Denies pain. hj hj 10:01 09:59 Pulse 72bpm; Resp 18bpm; Pulse Ox 100% RA; Temp 97.6F Oral; 56.7 kg; Height 5 ft. hj 7 in.; BMI: 19.5; Pain 05/14; hj
--- NOTE | 2018-09-20 14:43 | EDPHYS ---
Physician Documentation [facility] Name: Karissa Frias Age: 83 yrs Sex: Female : 1935 Arrival Date: 09/20/2018 Time: 09:53 Bed 19 Private MD: Carlton Owen E ED Physician Viraj Marie HPI: 09/20 10:25 This 83 yrs old Black Female presents to ER via Ambulatory with complaints of Wound jmm Infection. 10:25 The patient presents with pain. Onset: The symptoms/episode began/occurred 1 day(s) jmm ago. Associated signs and symptoms: Pertinent positives: fever. This is an 83 year old female with a history of DM, CAD, CHF, that presents to the ED with complaints of lower extremity pain increasing since this past evening with fever and chills. Patient has chronic foot wounds. . Historical: - Allergies: 09:57 No Known Allergies; hj - Home Meds: 09:57 acetaminophen 325 mg Oral tab 2 tabs every 4 hours for Pain [Active]; aspirin 81 mg hj Oral TbEC 1 tab once daily [Active]; carvedilol 12.5 mg Oral tab 1 tab 2 times per day [Active]; digoxin 125 mcg Oral tab 1 tab once daily [Active]; furosemide 40 mg Oral tab 1 tab 2 times per day [Active]; hydralazine 25 mg Oral tab [Active]; melatonin 3 mg Oral tab nightly [Active]; metformin 500 mg Oral tab 1 tab 2 times per day [Active]; mupirocin 2 % Topical oint twice a day [Active]; Nephro-Josh 0.8 mg Oral tab [Active]; nifedipine 90 mg Oral TbER 1 tab once daily [Active]; Plavix 75 mg Oral tab 1 tab once daily [Active]; - PMHx: 09:57 Anemia; Atrial Fib; CAD; CHF; Diabetes - NIDDM; DYSPHAGIA; High Cholesterol; hj Hypertension; osteomyelitis; Renal Disease; - PSHx: 09:57 pacer/defib; PEG tube; triple bypass; hj - Immunization history:: Adult Immunizations up to date. - Social history:: Smoking status: Patient/guardian denies using tobacco, Patient/guardian denies using alcohol. - Ebola Screening: : Patient negative for fever greater than or equal to 101.5 degrees Fahrenheit, and additional compatible Ebola Virus Disease symptoms Patient denies exposure to infectious person Patient denies travel to an Ebola-affected area in the 21 days before illness onset. ROS: 10:25 Cardiovascular: Negative for chest pain, palpitations, and edema, Respiratory: Negative [facility] for shortness of breath, cough, wheezing, and pleuritic chest pain. 10:25 Constitutional: Positive for chills, fever. 10:25 MS/extremity: Positive for 10:25 Skin: Positive for erythema. 10:25 All other systems are negative. Exam: 10:25 Constitutional: The patient appears in no acute distress, alert, awake. [facility] Vital Signs: 09:59 BP 139 / 65; Pulse 72; Resp 18; Temp 97.6(O); Pulse Ox 100% on R/A; Weight 56.7 kg; hj Height 5 ft. 7 in. (170.18 cm); Pain 10/10; 11:00 BP 138 / 63; Pulse 60; Resp 19; Pulse Ox 100% on R/A; em 12:00 BP 119 / 65; Pulse 60; Resp 16; Pulse Ox 100% on R/A; Pain 0/10; em 13:00 BP 116 / 65; Pulse 60; Resp 18; Pulse Ox 99% on R/A; em 14:00 BP 114 / 62; Pulse 60; Resp 14; Pulse Ox 100% on R/A; em 15:00 BP 109 / 67; Pulse 60; Resp 18; Pulse Ox 99% on R/A; em 09:59 Body Mass Index 19.58 (56.70 kg, 170.18 cm) MDM: 10:11 Patient medically screened. [facility] 14:38 Data reviewed: vital signs, nurses notes, lab test result(s). Counseling: I had a [facility] detailed discussion with the patient and/or guardian regarding: the historical points, exam findings, and any diagnostic results supporting the discharge/admit diagnosis, lab results, the need to transfer to another facility. ED course: Guac positive. Will need GI. I discussed the patient with Dr. Torres whom accepts transfer. 09/20 10:17 Order name: CBC with Diff; Complete Time: 12:48 [facility] 09/20 12:30 Interpretation: Within normal limits. [facility] 09/20 10:17 Order name: CMP; Complete Time: 11:42 [facility] 09/20 10:17 Order name: Procalcitonin; Complete Time: 11:42 [facility] 09/20 10:17 Order name: Lactate; Complete Time: 11:42 [facility] 09/20 10:18 Order name: Blood Culture Adult (2) [facility] 09/20 10:18 Order name: Wound Culture [facility] 09/20 10:17 Order name: Foot Right 3 View XRAY; Complete Time: 11:42 [facility] 09/20 10:21 Order name: Foot Left 3 View XRAY; Complete Time: 11:42 [facility] 09/20 10:58 Order name: Troponin (emerg Dept Use Only); Complete Time: 11:42 [facility] 09/20 10:58 Order name: CK; Complete Time: 11:42 [facility] 09/20 11:07 Order name: Type And Screen; Complete Time: 13:19 [facility] 09/20 11:52 Order name: Manual Differential; Complete Time: 12:48 MS 09/20 12:18 Order name: PT-INR; Complete Time: 13:19 [facility] 09/20 13:36 Order name: Urine Dipstick--Ancillary (enter results); Complete Time: 21:55 eb 09/20 10:17 Order name: Saline Lock; Complete Time: 10:47 [facility] 09/20 11:34 Order name: EKG - Nurse/Tech; Complete Time: 11:34 5 09/20 12:23 Order name: Chest Single View XRAY; Complete Time: 12:49 [facility] 09/20 12:23 Order name: Urine Dipstick-Ancillary (obtain specimen); Complete Time: 13:36 [facility] Administered Medications: 11:11 Drug: Zosyn 3.375 grams Route: IVPB; Infused Over: 60 mins; Site: right antecubital; em 12:30 Follow up: Response: No adverse reaction; IV Status: Completed infusion; IV Intake: em 100ml 12:30 Drug: ProTONIX 40 mg Route: IVP; Site: right antecubital; la1 13:09 Follow up: Response: No adverse reaction em 13:22 Drug: NS 0.9% 1000 ml Route: IV; Rate: 125 ml/hr; Site: right antecubital; em 15:54 Follow up: IV Status: Infusion continued upon transfer; IV Intake: 300ml em Disposition: 18:22 Co-signature as Attending Physician, Viraj Marie MD. gs Disposition: 09/20/18 14:42 Transfer ordered to Other Acute Care Facility. Diagnosis are Anemia, GI BLEED, Hyperkalemia, Acute Kidney Injury, Cellulitis of the right foot, Wound Infection. - Reason for transfer: Higher level of care. - Accepting physician is Ana Laura. - Condition is Stable. - Problem is new. - Symptoms are unchanged. Signatures: Dispatcher [employer] EDDre Rodríguez PA PA jmm Munoz, Edgar, SOCIAL PSYCHOLOGIST SOCIAL PSYCHOLOGIST em Alvin Todd, RN RN la1 José Miguel Francis RN RN [place] [id number] Viraj Marie MD MD Corrections: (The following items were deleted from the chart) 15:55 14:42 09/20/2018 14:42 Transfer ordered to Other Acute Care Facility. Diagnosis is em Anemia; GI BLEED; Hyperkalemia; Acute Kidney Injury; Cellulitis of the right foot; Wound Infection. Reason for transfer: Higher level of care. Accepting physician is Ana Laura. Condition is Stable. Problem is new. Symptoms are unchanged. [facility]
--- NOTE | 2018-09-22 07:41 | EKG ---
Test Date: 2018-09-20 Test Time: 10:52:23 Lemon Grower: HALLIE MEASUREMENT RESULTS: Intervals: Rate: 60 NM: QRSD: 154 QT: 382 QTc: 382 [place]: P: NM: QRS: 194 T: 51 INTERPRETIVE STATEMENTS: AV sequential or dual chamber electronic pacemaker Compared to ECG 04/08/2018 09:10:25 Ventricular-paced complex(es) or rhythm no longer present Sinus rhythm no longer present Fusion complex(es) no longer present First degree AV block no longer present Left-axis deviation no longer present Right bundle-branch block no longer present Left ventricular hypertrophy no longer present Early repolarization no longer present Myocardial infarct finding no longer present Electronically Signed On 09-22-18 07:38:00 [employer]OR AND [employer] PACKAGER by Arik Roa
== END 2018-09-20 15:55 ==
LOC: ER 09:49
DX: S91.301A Unspecified open wound, right foot, initial encounter (principal); L03.115 Cellulitis of right lower limb; D64.9 Anemia, unspecified; K92.2 Gastrointestinal hemorrhage, unspecified; E87.5 Hyperkalemia; N17.9 Acute kidney failure, unspecified; M77.32 Calcaneal spur, left foot; M77.31 Calcaneal spur, right foot; I48.91 Unspecified atrial fibrillation; I11.0 Hypertensive heart disease with heart failure; I50.9 Heart failure, unspecified; E11.9 Type 2 diabetes mellitus without complications; E78.00 Pure hypercholesterolemia, unspecified; Z79.84 Long term (current) use of oral hypoglycemic drugs; Z79.82 Long term (current) use of aspirin
CPT/HCPCS: 36415; 71045; 73630 ×2; 80053; 81003; 82550; 83605; 84145; 84484; 85025; 85610; 86850; 86900; 86901; 87040 ×2; 87070; 87205; 93005; 96361; 96365; 96375; 99285; C9113; J2543; J7030; 87077; 87186

== ENCOUNTER 2018-10-23 10:23 | Emergency (ER) | payer OTHER ==
--- OUTSIDE RECORDS SUMMARY | 2018-10-23 10:28 | XMS REPORT | Clinical Summary ---
:1935 Author Organization [facility] Address [address] [place] [address] Care Team Providers Name Role Phone Ester [...] tablet mouth 2 (two) times a day. metFORMIN Take 500 mg by 0 Active (GLUCOPHAGE) 500 mouth 2 (two) mg tablet times a day with meals. NIFEdipine CC Take 90 mg by 0 Active (ADALAT CC) 90 MG mouth daily. 24 hr tablet hydrALAZINE Take 25 mg by 0 Active (APRESOLINE) 25 MG mouth 3 (three) tablet times a day. ferrous sulfate Take 1 tablet 60 tablet 0 10/03/2018 Active 325 (65 FE) MG (325 mg total) by 9 tablet mouth 2 (two) times a day with meals for 30 days. multivitamin Take 1 tablet by 30 tablet 0 10/04/2018 Active (THERAGRAN) tablet mouth daily for 9 30 days. pantoprazole Take 1 tablet (40 30 tablet 0 10/04/2018 Active (PROTONIX) 40 MG mg total) by 9 EC tablet mouth daily for 30 days. thiamine Take 1 tablet 30 tablet 0 10/04/2018 Active mononitrate, vit (100 mg total) by 9 B1, (B-1) 100 mg mouth daily for tablet 30 days. lisinopril Take 5 mg by 0 Discontinued (PRINIVIL,ZESTRIL) mouth daily. 8 5 mg tablet megestrol (MEGACE) Take 800 mg by 0 Discontinued 400 mg/10 mL (10 mouth daily. 9 mL) suspension collagenase Apply 1 0 Discontinued (SANTYL) ointment application 9 topically daily. valsartan (DIOVAN) Take 160 mg by 0 Discontinued 160 MG tablet mouth daily. 9 aspirin (ECOTRIN) Take 81 mg by 0 Discontinued 81 MG enteric mouth daily. 9 coated tablet loperamide Take 2 mg by 0 Discontinued (IMODIUM) 2 mg mouth as needed 9 capsule for diarrhea. cefepime IVPB 1 Infuse 1 g into a 0 11/12/2017 gram Mini-Bag Plus venous catheter 8 every 12 (twelve) hours for 14 days. pantoprazole 4 Infuse 10 mL (40 1 each 0 11/13/2017 Discontinued mg/mL in sodium mg total) into a 9 chloride injection venous catheter daily before breakfast. sodium bicarbonate Take 2 tablets 56 tablet 0 10/03/2018 650 mg tablet (1,300 mg total) 9 by mouth 2 (two) times a day for 14 days. 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 09/20/2018 [facility] Internal [facility], - Encounter Medicine MD Justin 10/03/2018 Ester Gama MD 11/12/2017 Anesthesia Event Gastroenterology Marija Can MD 11/12/2017 Surgery Gastroenterology Rosa, CHANAD WITH STEFANIE Khan MD INSERTION 11/07/2017 Anesthesia Event Intensive Care Junie Hodgson CRNA 11/07/2017 Surgery Gastroenterology Rosa, EGD WITH control of Denny Khan MD bleeding 11/03/2017 [facility] Internal Shawn Gamamaple plain Upper GI bleed (Primary Dx ); - Encounter Medicine MD Mickey Toxic metabolic encephalopathy 11/13/2017 after 10/22/2017 Immunizations Name Dates Previously Given Next Due FLUCELVAX QUAD PF (0.5mL syringe) 10/03/2018 Pneumococcal Conjugate 13-Valent 10/03/2018 Social History Tobacco Use Types Packs/Day Years [...] Vital Sign Reading Time Taken Blood Pressure 145/68 10/03/2018 11:04 AM [facility] Pulse 75 10/03/2018 11:04 AM [facility] Temperature 35.9 C (96.6 F) 10/03/2018 11:04 AM [facility]ANCE [facility]ENT Respiratory Rate 18 10/03/2018 11:04 AM [facility]ANCE [facility]ENT Oxygen Saturation 100% 10/03/2018 11:04 AM [facility] [employer]ENT Inhaled Oxygen Concentration - - Weight 49.1 kg (108 lb 3.2 oz) 10/03/2018 5:00 AM [facility] Height 175.3 cm (5' 9") 09/23/2018 9:00 AM [facility]ANCE [facility] Body Mass Index 15.98 10/03/2018 5:00 AM [facility]ANCE AG[facility] Plan of Treatment Health Maintenance Due Date Last Done Comments SHINGLES VACCINES (#1) 1987 PNEUMOCOCCAL POLYSACCHARIDE VACCINE AGE 65 AND OVER 2002 65+ PNEUMOCOCCAL VACCINE (2 of 2 - PPSV23) 10/04/2019 10/03/2018 INFLUENZA VACCINE Completed 10/03/2018 Procedures Procedure Name Priority Date/Time Associated Comments Diagnosis POC GLUCOSE Routine 10/03/2018 11:17 Results for this AM [facility] [employer] procedure are in the results section. POC GLUCOSE Routine 10/03/2018 8:04 Results for this AM [facility] [employer] procedure are in the results section. ESTIMATED GFR Routine 10/03/2018 5:00 Results for this AM [facility] [employer] procedure are in the results section. BASIC METABOLIC PANEL Routine 10/03/2018 5:00 Results for this AM [facility] [employer] procedure are in the results section. ESTIMATED GFR Routine 10/02/2018 10:06 Results for this PM [employer]ANCE [employer] procedure are in the results section. BASIC METABOLIC PANEL Routine 10/02/2018 10:06 Results for this PM [employer] [employer] procedure are in the results section. HC COMPLETE BLD COUNT Routine 10/02/2018 10:06 Results for this W/AUTO DIFF PM [employer] [employer] procedure are in the results section. POC GLUCOSE Routine 10/02/2018 9:10 Results for this PM [employer] [employer] procedure are in the results section. POC GLUCOSE Routine 10/02/2018 3:50 Results for this PM [employer] [employer] procedure are in the results section. POC GLUCOSE Routine 10/02/2018 11:19 Results for this AM [employer] [employer] procedure are in the results section. ARTERIAL BLOOD GAS Routine 10/02/2018 7:33 Results for this AM [facility] [employer] procedure are in the results section. POC GLUCOSE Routine 10/02/2018 7:19 Results for this AM [employer] [employer] procedure are in the results section. ESTIMATED GFR Routine 10/02/2018 5:20 Results for this AM [employer] [employer] procedure are in the results section. BASIC METABOLIC PANEL Routine 10/02/2018 5:20 Results for this AM [employer] [employer] procedure are in the results section. HC COMPLETE BLD COUNT Routine 10/02/2018 5:20 Results for this W/AUTO DIFF AM [employer] [employer] procedure are in the results section. POC GLUCOSE Routine 10/01/2018 9:01 Results for this PM [employer] [employer] procedure are in the results section. POC GLUCOSE Routine 10/01/2018 4:28 Results for this PM [employer] procedure are in the results section. TRANSFUSE RED BLOOD Routine 10/01/2018 2:48 CELLS PM [employer] [employer]ENT POC GLUCOSE Routine 10/01/2018 11:22 Results for this AM [employer] [employer] procedure are in the results section. PREPARE RBC Routine 10/01/2018 7:41 Results for this AM [employer] [employer] procedure are in the results section. TYPE AND SCREEN Routine 10/01/2018 7:41 Results for this AM [employer] [employer] procedure are in the results section. POC GLUCOSE Routine 10/01/2018 7:21 Results for this AM [employer] [employer] procedure are in the results section. BASIC METABOLIC PANEL Routine 10/01/2018 6:15 Results for this AM [employer] [employer] procedure are in the results section. ESTIMATED GFR Routine 10/01/2018 6:15 Results for this AM [employer] [employer] procedure are in the results section. MAGNESIUM LEVEL Routine 10/01/2018 6:15 Results for this AM [facility] [employer] procedure are in the results section. HC COMPLETE BLD COUNT Routine 10/01/2018 6:15 Results for this W/AUTO DIFF AM [facility] [employer] procedure are in the results section. POC GLUCOSE Routine 09/30/2018 9:35 Results for this PM [employer] [employer] procedure are in the results section. POC GLUCOSE Routine 09/30/2018 4:28 Results for this PM [employer] [employer] procedure are in the results section. POC GLUCOSE Routine 09/30/2018 11:16 Results for this AM [employer] [employer] procedure are in the results section. POC GLUCOSE Routine 09/30/2018 7:43 Results for this AM [employer] [employer] procedure are in the results section. POC GLUCOSE Routine 09/29/2018 9:01 Results for this PM [employer] [employer] procedure are in the results section. POC GLUCOSE Routine 09/29/2018 4:36 Results for this PM [employer] [employer] procedure are in the results section. POC GLUCOSE Routine 09/29/2018 11:24 Results for this AM [employer] [employer] procedure are in the results section. POC GLUCOSE Routine 09/29/2018 7:34 Results for this AM [employer] [employer] procedure are in the results section. ESTIMATED GFR Routine 09/29/2018 6:15 Results for this AM [employer] [employer] procedure are in the results section. BASIC METABOLIC PANEL Routine 09/29/2018 6:15 Results for this AM [employer] [employer] procedure are in the results section. POC GLUCOSE Routine 09/28/2018 9:00 Results for this PM [facility] [employer] procedure are in the results section. POC GLUCOSE Routine 09/28/2018 4:33 Results for this PM [employer] [employer] procedure are in the results section. POC GLUCOSE Routine 09/28/2018 11:33 Results for this AM [employer] [employer] procedure are in the results section. ESTIMATED GFR Routine 09/28/2018 8:20 Results for this AM [employer] [employer] procedure are in the results section. COMPREHENSIVE METABOLIC Routine 09/28/2018 8:20 Results for this PANEL AM [facility] procedure are in the results section. POC GLUCOSE Routine 09/28/2018 7:49 Results for this AM [facility] procedure are in the results section. POC GLUCOSE Routine 09/27/2018 9:21 Results for this PM [facility] procedure are in the results section. POC GLUCOSE Routine 09/27/2018 4:28 Results for this PM [employer] procedure are in the results section. POC GLUCOSE Routine 09/27/2018 11:38 Results for this AM [employer] procedure are in the results section. POC GLUCOSE Routine 09/27/2018 8:20 Results for this AM [facility] procedure are in the results section. POC GLUCOSE Routine 09/27/2018 7:43 Results for this AM [facility] procedure are in the results section. POC GLUCOSE Routine 09/27/2018 7:41 Results for this AM [facility] procedure are in the results section. ESTIMATED GFR Routine 09/27/2018 6:25 Results for this AM [facility] procedure are in the results section. BASIC METABOLIC PANEL Routine 09/27/2018 6:25 Results for this AM [facility] [employer] procedure are in the results section. HC COMPLETE BLD COUNT Routine 09/27/2018 6:25 Results for this W/AUTO DIFF AM [employer] procedure are in the results section. POC GLUCOSE Routine 09/26/2018 8:57 Results for this PM [facility] procedure are in the results section. POC GLUCOSE Routine 09/26/2018 5:38 Results for this PM [facility] procedure are in the results section. POC GLUCOSE Routine 09/26/2018 11:27 Results for this AM [employer] [employer] procedure are in the results section. POC GLUCOSE Routine 09/26/2018 7:56 Results for this AM [employer] [employer] procedure are in the results section. ESTIMATED GFR Routine 09/25/2018 11:10 Results for this PM [employer] [employer] procedure are in the results section. COMPREHENSIVE METABOLIC Routine 09/25/2018 11:10 Results for this PANEL PM [facility] procedure are in the results section. HC COMPLETE BLD COUNT Routine 09/25/2018 11:10 Results for this W/AUTO DIFF PM [employer] [employer] procedure are in the results section. POC GLUCOSE Routine 09/25/2018 8:38 Results for this PM [employer] [employer] procedure are in the results section. POC GLUCOSE Routine 09/25/2018 5:04 Results for this PM [employer] [employer] procedure are in the results section. POC GLUCOSE Routine 09/25/2018 10:55 Results for this AM [employer] [employer] procedure are in the results section. POC GLUCOSE Routine 09/25/2018 8:03 Results for this AM [employer] [employer] procedure are in the results section. ECG 12-LEAD Routine 09/25/2018 6:07 Results for this AM [employer] [employer] procedure are in the results section. POC GLUCOSE Routine 09/24/2018 9:41 Results for this PM [employer] [employer] procedure are in the results section. POC GLUCOSE Routine 09/24/2018 4:20 Results for this PM [employer] [employer] procedure are in the results section. POC GLUCOSE Routine 09/24/2018 12:02 Results for this PM [employer] [employer] procedure are in the results section. POC GLUCOSE Routine 09/24/2018 7:31 Results for this AM [employer] [employer] procedure are in the results section. ESTIMATED GFR Routine 09/24/2018 4:00 Results for this AM [employer] [employer] procedure are in the results section. HC COMPLETE BLD COUNT Routine 09/24/2018 4:00 Results for this W/AUTO DIFF AM [employer] [employer] procedure are in the results section. BASIC METABOLIC PANEL Routine 09/24/2018 4:00 Results for this AM [employer] [employer] procedure are in the results section. PARTIAL THROMBOPLASTIN Routine 09/24/2018 4:00 Results for this TIME (PTT) AM [facility] [employer] procedure are in the results section. PROTHROMBIN TIME WITH Routine 09/24/2018 4:00 Results for this INR AM [employer] [employer] procedure are in the results section. POC GLUCOSE Routine 09/23/2018 4:48 Results for this PM [employer] [employer] procedure are in the results section. POC GLUCOSE Routine 09/23/2018 11:15 Results for this AM [employer] [employer] procedure are in the results section. POC GLUCOSE Routine 09/23/2018 8:59 Results for this AM [employer] [employer] procedure are in the results section. POC GLUCOSE Routine 09/23/2018 6:29 Results for this AM [employer] [employer] procedure are in the results section. POC GLUCOSE Routine 09/23/2018 4:18 Results for this AM [employer] [employer] procedure are in the results section. XR CHEST 1 VW PORTABLE Routine 09/23/2018 3:58 Results for this AM [employer] procedure are in the results section. ESTIMATED GFR Routine 09/23/2018 3:15 Results for this AM [employer] [employer] procedure are in the results section. PARTIAL THROMBOPLASTIN Routine 09/23/2018 3:15 Results for this TIME (PTT) AM [employer] [employer] procedure are in the results section. PROTHROMBIN TIME WITH Routine 09/23/2018 3:15 Results for this INR AM [employer] [employer] procedure are in the results section. PHOSPHORUS LEVEL Routine 09/23/2018 3:15 Results for this AM [employer] [employer] procedure are in the results section. MAGNESIUM LEVEL Routine 09/23/2018 3:15 Results for this AM [employer] [employer] procedure are in the results section. IONIZED CALCIUM Routine 09/23/2018 3:15 Results for this AM [employer] [employer] procedure are in the results section. HC COMPLETE BLD COUNT Routine 09/23/2018 3:15 Results for this W/AUTO DIFF AM [employer] procedure are in the results section. BASIC METABOLIC PANEL Routine 09/23/2018 3:15 Results for this AM [employer] [employer] procedure are in the results section. POC GLUCOSE Routine 09/23/2018 2:06 Results for this AM [employer] [employer] procedure are in the results section. POC GLUCOSE Routine 09/23/2018 12:46 Results for this AM [employer] [employer] procedure are in the results section. POC GLUCOSE Routine 09/22/2018 10:28 Results for this PM [employer] [employer] procedure are in the results section. VANCOMYCIN LEVEL, Timed 09/22/2018 10:20 Results for this TROUGH PM [employer] [employer] procedure are in the results section. POC GLUCOSE Routine 09/22/2018 7:57 Results for this PM [employer] [employer] procedure are in the results section. POC GLUCOSE Routine 09/22/2018 5:04 Results for this PM [employer] [employer] procedure are in the results section. HC COMPLETE BLD COUNT Routine 09/22/2018 3:55 Results for this W/AUTO DIFF PM [employer] [employer] procedure are in the results section. POC GLUCOSE Routine 09/22/2018 2:41 Results for this PM [employer] [employer] procedure are in the results section. SURGICAL PATHOLOGY Routine 09/22/2018 2:34 Results for this REQUEST PM [employer] procedure are in the results section. IA AN ELECTIVE Routine 09/22/2018 1:05 SUPRAGLOTTIC AIRWAY PM [facility] Procedure Note - Dre Gil CRNA - 09/22/2018 1:05 PM SUR[facility]ANCE [facility]ENT Airway Date/Time: 09/22/2018 12:49 PM Performed by: Dre Gil CRNA Authorized by: Jerad Jacques MD Location: [place] Urgency: Elective Difficult Airway: No Anesthesiologist: Wilmer Anaya MD Resident/BUSINESS COORDINATOR/AA: Dre Gil CRNA Performed by: anesthesiologist and resident/BUSINESS COORDINATOR/AA Preoxygenated with 100% O2: Yes C-spine Precautions Maintained Throughout: Yes Mask Ventilation: Easy mask Final Airway Type: Supraglottic airway Final LMA: Classic LMA Size: 3 Number of Attempts at Approach: 1 ECHOCARDIOGRAM 2D Routine 09/22/2018 12:40 Results for this COMPLETE W MMODE PM [employer] [employer] procedure are in SPECTRAL COLOR DOPPLER the results (76393) section. POC GLUCOSE Routine 09/22/2018 12:13 Results for this PM [employer] [employer] procedure are in the results section. POC GLUCOSE Routine 09/22/2018 11:59 Results for this AM [employer] [employer] procedure are in the results section. POC GLUCOSE Routine 09/22/2018 9:56 Results for this AM [employer] [employer] procedure are in the results section. XR CHEST 1 VW PORTABLE Routine 09/22/2018 8:59 Results for this AM [employer] [employer] procedure are in the results section. PROTHROMBIN TIME WITH STAT 09/22/2018 8:25 Results for this INR AM [employer] [employer] procedure are in the results section. POC GLUCOSE Routine 09/22/2018 8:06 Results for this AM [employer] [employer] procedure are in the results section. POC GLUCOSE Routine 09/22/2018 6:02 Results for this AM [employer] [employer] procedure are in the results section. POC GLUCOSE Routine 09/22/2018 4:22 Results for this AM [employer] [employer] procedure are in the results section. ESTIMATED GFR Routine 09/22/2018 3:30 Results for this AM [employer] [employer] procedure are in the results section. MAGNESIUM LEVEL Routine 09/22/2018 3:30 Results for this AM [employer] [employer] procedure are in the results section. IONIZED CALCIUM Routine 09/22/2018 3:30 Results for this AM [employer] [employer] procedure are in the results section. BASIC METABOLIC PANEL Routine 09/22/2018 3:30 Results for this AM [employer] [employer] procedure are in the results section. HC COMPLETE BLD COUNT Routine 09/22/2018 3:30 Results for this W/AUTO DIFF AM [employer] [employer] procedure are in the results section. POC GLUCOSE Routine 09/22/2018 2:51 Results for this AM [employer] [employer] procedure are in the results section. POC GLUCOSE Routine 09/22/2018 1:13 Results for this AM [employer] [employer] procedure are in the results section. POC GLUCOSE Routine 09/21/2018 11:09 Results for this PM [employer] [employer] procedure are in the results section. POC GLUCOSE Routine 09/21/2018 8:47 Results for this PM [employer] [employer] procedure are in the results section. US RENAL Routine 09/21/2018 7:35 Results for this PM [employer] [employer] procedure are in the results section. POC GLUCOSE Routine 09/21/2018 6:50 Results for this PM [employer] [employer] procedure are in the results section. POC GLUCOSE Routine 09/21/2018 5:08 Results for this PM [employer] [employer] procedure are in the results section. LACTIC ACID LEVEL Routine 09/21/2018 5:00 Results for this PM [employer] [employer] procedure are in the results section. OCCULT BLOOD, STOOL Routine 09/21/2018 4:08 Results for this PM [employer] [employer] procedure are in the results section. POC GLUCOSE Routine 09/21/2018 4:03 Results for this PM [employer] [employer] procedure are in the results section. TRANSFUSE RED BLOOD Routine 09/21/2018 3:31 CELLS PM [employer]ENT POC GLUCOSE Routine 09/21/2018 2:55 Results for this PM [employer] [employer] procedure are in the results section. POC GLUCOSE Routine 09/21/2018 1:29 Results for this PM [employer] [employer] procedure are in the results section. CONSULT TO OSTOMY CARE Routine 09/21/2018 1:12 NURSE PM [employer] [employer]ENT POC GLUCOSE Routine 09/21/2018 12:24 Results for this PM [employer] [employer] procedure are in the results section. US DUPLEX ARTERIAL STAT 09/21/2018 11:35 Results for this LOWER EXTREMITY RIGHT AM [employer] [employer] procedure are in the results section. POC GLUCOSE Routine 09/21/2018 11:25 Results for this AM [employer] [employer] procedure are in the results section. POC GLUCOSE Routine 09/21/2018 10:50 Results for this AM [employer] [employer] procedure are in the results section. TROPONIN Routine 09/21/2018 10:50 Results for this AM [employer] [employer] procedure are in the results section. HEPATIC FUNCTION PANEL Routine 09/21/2018 10:50 Results for this AM [employer] [employer] procedure are in the results section. HC COMPLETE BLD COUNT Routine 09/21/2018 10:50 Results for this W/AUTO DIFF AM [employer] [employer] procedure are in the results section. LACTIC ACID LEVEL Routine 09/21/2018 10:50 Results for this AM [facility] [employer] procedure are in the results section. ESTIMATED GFR Routine 09/21/2018 10:28 Results for this AM [employer] [employer] procedure are in the results section. BASIC METABOLIC PANEL Routine 09/21/2018 10:28 Results for this AM [employer] [employer] procedure are in the results section. POC GLUCOSE Routine 09/21/2018 9:51 Results for this AM [employer] [employer] procedure are in the results section. POC GLUCOSE Routine 09/21/2018 9:07 Results for this AM [employer] [employer] procedure are in the results section. TRANSFUSE RED BLOOD Routine 09/21/2018 9:06 CELLS AM [facility]ENT CHLORIDE LEVEL, URINE, Routine 09/21/2018 8:44 Results for this RANDOM AM [employer] [employer] procedure are in the results section. POTASSIUM, URINE, Routine 09/21/2018 8:44 Results for this RANDOM AM [employer] [employer] procedure are in the results section. OSMOLALITY, URINE Routine 09/21/2018 8:44 Results for this AM [employer] [employer] procedure are in the results section. PROTEIN, URINE, RANDOM Routine 09/21/2018 8:44 Results for this AM [employer] [employer] procedure are in the results section. SODIUM LEVEL, URINE, Routine 09/21/2018 8:44 Results for this RANDOM AM [employer] [employer] procedure are in the results section. CREATININE LEVEL, Routine 09/21/2018 8:44 Results for this URINE, RANDOM AM [employer] [employer] procedure are in the results section. POC GLUCOSE Routine 09/21/2018 8:07 Results for this AM [employer] [employer] procedure are in the results section. POC GLUCOSE Routine 09/21/2018 7:41 Results for this AM [employer] [employer] procedure are in the results section. CONSULT TO OSTOMY CARE Routine 09/21/2018 7:18 NURSE AM [facility]ENT LACTIC ACID LEVEL, Timed 09/21/2018 7:00 Results for this SEPSIS - NOW AND AM [facility] procedure are in REPEAT 2X EVERY 3 the results HOURS section. POC GLUCOSE Routine 09/21/2018 6:43 Results for this AM [employer] [employer] procedure are in the results section. POC GLUCOSE Routine 09/21/2018 5:21 Results for this AM [employer] [employer] procedure are in the results section. POC GLUCOSE Routine 09/21/2018 4:32 Results for this AM [employer] [employer] procedure are in the results section. GRAM STAIN Routine 09/21/2018 4:20 Results for this AM [employer] [employer] procedure are in the results section. ANAEROBIC CULTURE Routine 09/21/2018 4:20 Results for this AM [employer] [employer] procedure are in the results section. AEROBIC CULTURE Routine 09/21/2018 4:20 Results for this AM [employer] [employer] procedure are in the results section. ECG 12-LEAD STAT 09/21/2018 4:10 Results for this AM [employer] [employer] procedure are in the results section. POC GLUCOSE Routine 09/21/2018 4:06 Results for this AM [employer] [employer] procedure are in the results section. IONIZED CALCIUM Routine 09/21/2018 4:00 Results for this AM [employer] [employer] procedure are in the results section. PARTIAL THROMBOPLASTIN Routine 09/21/2018 4:00 Results for this TIME (PTT) AM [employer] [employer] procedure are in the results section. LACTIC ACID LEVEL Routine 09/21/2018 4:00 Results for this AM [employer] [employer] procedure are in the results section. MAGNESIUM LEVEL Routine 09/21/2018 4:00 Results for this AM [employer] [employer] procedure are in the results section. PHOSPHORUS LEVEL Routine 09/21/2018 4:00 Results for this AM [employer] [employer] procedure are in the results section. ESTIMATED GFR Routine 09/21/2018 4:00 Results for this AM [employer] procedure are in the results section. BASIC METABOLIC PANEL Routine 09/21/2018 4:00 Results for this AM [employer] procedure are in the results section. PROTHROMBIN TIME WITH Routine 09/21/2018 4:00 Results for this INR AM [employer] procedure are in the results section. HC COMPLETE BLD COUNT Routine 09/21/2018 4:00 Results for this W/AUTO DIFF AM [employer] procedure are in the results section. POC GLUCOSE Routine 09/21/2018 3:48 Results for this AM [facility]ENT procedure are in the results section. PREPARE RBC Routine 09/20/2018 11:35 Results for this PM SURVEILLANCE AGENT procedure are in the results section. PREPARE RBC Routine 09/20/2018 11:35 Results for this PM SURVEILLANCE AGENT procedure are in the results section. TYPE AND SCREEN Routine 09/20/2018 11:35 Results for this PM SURVEILLANCE AGENT procedure are in the results section. POC GLUCOSE Routine 09/20/2018 11:22 Results for this PM SURVEILLANCE AGENT procedure are in the results section. URINALYSIS, AUTOMATED Routine 09/20/2018 11:16 Results for this WITH MICROSCOPY PM SURVEILLANCE AGENT procedure are in the results section. BLOOD CULTURE, AEROBIC Routine 09/20/2018 9:35 Results for this & ANAEROBIC PM SURVEILLANCE AGENT procedure are in the results section. XR FOOT 2 VW RIGHT Routine 09/20/2018 9:28 Results for this PM SURVEILLANCE AGENT procedure are in the results section. LACTIC ACID LEVEL, Timed 09/20/2018 9:15 Results for this SEPSIS - NOW AND PM SURVEILLANCE AGENT procedure are in REPEAT 2X EVERY 3 the results HOURS section. BLOOD CULTURE, AEROBIC Routine 09/20/2018 9:15 Results for this & ANAEROBIC PM SURVEILLANCE AGENT procedure are in the results section. ESTIMATED GFR Routine 09/20/2018 6:50 Results for this PM SURVEILLANCE AGENT procedure are in the results section. PROTHROMBIN TIME WITH Routine 09/20/2018 6:50 Results for this INR PM SURVEILLANCE AGENT procedure are in the results section. HC COMPLETE BLD COUNT Routine 09/20/2018 6:50 Results for this W/AUTO DIFF PM SURVEILLANCE AGENT procedure are in the results section. BASIC METABOLIC PANEL Routine 09/20/2018 6:50 Results for this PM SURVEILLANCE AGENT procedure are in the results section. POC GLUCOSE Routine 09/20/2018 5:23 Results for this PM SURVEILLANCE AGENT procedure are in the results section. TRANSFUSE RED BLOOD Routine 04/09/2018 5:52 CELLS [...] procedure are in the results section. after 10/22/2017 Results POC glucose (10/03/2018 11:17 AM SURVEILLANCE AGENT)Only the most recent of133 resultswithin the time period is included. POC glucose 201 (H) 65 - 99 mg/dL [facility] Comment: HOSPITAL RN Notified Meter ID: [id number] Automatic Engraver: Santos Performing Organization Address City/State/Zipcode Phone Number [facility] DEPARTMENT OF PATHOLOGY [address] [place] [address] AND GENOMIC MEDICINE [facility] [address] [place] [address] HOSPITAL Estimated GFR (10/03/2018 5:00 AM SURVEILLANCE AGENT)Only the most recent of14 resultswithin the time period is included. Estimated GFR 11 (A) mL/min/1.73 m2 [facility] Comment: [facility] CatergoryUnitsInterpretation G1 >=90 Normal or high G2 60-89Mildly decreased S2c25-15Blfidv to moderately decreased P7e64-28Oykvifyqsw to severely decreased G4 15-29Severely decreased G5 <15Kidney failure The eGFR was calculated using the Chronic Kidney Disease Epidemiology Collaboration (CKD-EPI) equation. Interpretation is based on recommendations of the National Kidney Foundation-Kidney Disease Outcomes Quality Initiative (NKF-KDOQI) published in 2014. Specimen Plasma specimen Performing Organization Address City/[facility] Phone Number [facility] DEPARTMENT OF PATHOLOGY [id number] [place] [address] Basic metabolic panel (10/03/2018 5:00 AM SURVEILLANCE AGENT)Only the most recent of17 resultswithin the time period is included. Sodium 136 135 - 148 mEq/L [facility] Potassium 3.8 3.5 - 5.0 mEq/L [facility] Chloride 105 98 - 112 mEq/L [facility] CO2 15 (L) 24 - 31 mEq/L [facility] Anion gap 16@ANIO (H) 7 - 15 mEq/L [facility] BUN 59 (H) 8 - 23 mg/dL [facility] Creatinine 3.66 (H) 0.50 - 0.90 mg/dL [facility] Glucose 123 (H) 65 - 99 mg/dL [facility] Calcium 7.9 (L) 8.8 - 10.2 mg/dL [facility] Specimen Plasma specimen Performing Organization Address [facility] Phone Number [facility] DEPARTMENT OF PATHOLOGY [address] [place] [address] CBC with platelet and differential (10/02/2018 10:06 PM SURVEILLANCE AGENT)Only the most recent of24 resultswithin the time period is included. WBC 9.8 4.5 - 11.0 k/uL [facility] RBC 2.85 (L) 4.20 - 5.50 m/uL [facility] HGB 8.1 (L) 12.0 - 16.0 g/dL [facility] HCT 25.8 (L) 37.0 - 47.0 % [facility] MCV 90.5 82.0 - 100.0 fL [facility] MCH 28.4 27.0 - 34.0 pg [facility] MCHC 31.4 31.0 - 37.0 g/dL [facility] RDW - SD 53.8 37.0 - 55.0 fL [facility] MPV 10.3 6.9 - 11.0 fL [facility] Platelet count 265 150 - 400 K/uL [facility] Nucleated RBC 0.00 /100 WBC [facility] Neutrophils 75.1 (H) 39.0 - 69.0 % [facility] Lymphocytes 14.9 (L) 25.0 - 45.0 % [facility] Monocytes 6.7 0.0 - 10.0 % [facility] Eosinophils 2.3 0.0 - 5.0 % [facility] Basophils 0.6 0.0 - 1.0 % [facility] Immature granulocytes 0.4 0.0 - 1.0 % [facility] Specimen Blood Performing Organization Address City/State/Zipcode Phone Number [facility] DEPARTMENT OF PATHOLOGY [address] [place] [address] AND GENOMIC MEDICINE [facility] [address] [place] [address] HOSPITAL Arterial blood gas (10/02/2018 7:33 AM SURVEILLANCE AGENT)Only the most recent of2 resultswithin the time period is included. pH, arterial 7.39 7.35 - 7.45 [facility] pCO2, arterial 25 (L) 35 - 45 mmHg [facility] pO2, arterial 106 (H) 80 - 90 mmHg [facility] Bicarbonate, arterial 14.5 (L) 21.0 - 28.0 mmol/L [facility] Base excess, arterial -9 (L) -2 - 2 mEq/L [facility] O2 saturation, arterial 97 95 - 100 % [facility] Specimen Blood Performing Organization Address City/[facility] Phone Number [facility] DEPARTMENT OF PATHOLOGY [address] [place] [address] [place] [address] HOSPITAL Transfuse RBC (10/01/2018 2:48 PM SURVEILLANCE AGENT)Only the most recent of13 resultswithin the time period is included.Prepare RBC, 1 Units (10/01/2018 7:41 AM SURVEILLANCE AGENT)Only the most recent of6 resultswithin the time period is included. Product name Red Blood Cells -1, [facility] Unit number [id number] [facility] Product code [id number] [facility] Dispense status Transfused [facility] Blood expiration date [id number] [facility] Blood type code 8400 [facility] Blood type AB POSITIVE [facility] Specimen Blood Performing Organization Address [facility] Phone Number [facility] DEPARTMENT OF PATHOLOGY [address] [place] [address] [place] [address] HOSPITAL Type and screen (10/01/2018 7:41 AM SURVEILLANCE AGENT)Only the most recent of4 resultswithin the time period is included. ABO grouping AB [facility] Rh type POS [facility] Antibody screen (gel) NEG [facility] Specimen Blood Performing Organization Address [facility] Phone Number [facility] DEPARTMENT OF PATHOLOGY [address] [place] [address] [place] [address] HOSPITAL Magnesium level (10/01/2018 6:15 AM SURVEILLANCE AGENT)Only the most recent of13 resultswithin the time period is included. Magnesium 2.0 1.6 - 2.4 mg/dL [facility] Specimen Plasma specimen Performing Organization Address City/[facility]/Zipcode Phone Number [facility] DEPARTMENT OF PATHOLOGY [address] [place] [address] [place] [address] HOSPITAL Comprehensive metabolic panel (09/28/2018 8:20 AM SURVEILLANCE AGENT)Only the most recent of10 resultswithin the time period is included. Sodium 136 135 - 148 mEq/L [facility] Potassium 3.6 3.5 - 5.0 mEq/L [facility] Chloride 106 98 - 112 mEq/L [facility] CO2 16 (L) 24 - 31 mEq/L [facility] Anion gap 14@ANIO 7 - 15 mEq/L [facility] BUN 63 (H) 8 - 23 mg/dL [facility] Creatinine 4.09 (H) 0.50 - 0.90 mg/dL [facility] Glucose 86 65 - 99 mg/dL [facility] Calcium 7.8 (L) 8.8 - 10.2 mg/dL [facility] Protein 5.9 (L) 6.3 - 8.3 g/dL [facility] Albumin 2.2 (L) 3.5 - 5.0 g/dL [facility] A/G ratio 0.6 (L) 0.7 - 3.8 [facility] Alkaline phosphatase 61 35 - 104 U/L [facility] AST 13 10 - 35 U/L [facility] ALT <5 (A) 5 - 50 U/L [facility] Total bilirubin <0.2 0.2 - 1.2 mg/dL [facility] Specimen Plasma specimen Performing Organization Address City/State/Zipcode Phone Number [facility] DEPARTMENT OF PATHOLOGY [address] [place] [address] AND GENOMIC MEDICINE [facility] [address] ECG 12 lead (09/25/2018 6:07 AM SURVEILLANCE AGENT)Only the most recent of3 resultswithin the time period is included. Ventricular rate 71 [facility] Atrial rate 84 [facility] QRSD interval 156 [facility] QT interval 386 [facility] QTC interval 419 [facility] QRS axis 1 124 [facility] T wave axis 42 [facility] EKG impression Electronic ventricular pacemaker-In automated [facility] MUSE comparison with ECG of 25-SEP-2018 06:05,-Electronic ventricular pacemaker has replaced Atrial fibrillation- Narrative Performed At Performing Organization Address City/[facility]/Zipcode Phone Number [facility] MUSE [address] [place] [address] Partial thromboplastin time, activated (09/24/2018 4:00 AM SURVEILLANCE AGENT)Only the most recent of6 resultswithin the time period is included. PTT 51.3 (H) 23.0 - 36.0 sec [facility] Comment: [facility] PTT therapeutic range for unfractionated heparin is 61.0-112.0 seconds which corresponds to Anti-Xa 0.3-0.7 U/ml. Specimen Blood Performing Organization Address [facility] Phone Number [facility] DEPARTMENT OF PATHOLOGY [address] [place] [address] Prothrombin time with INR (09/24/2018 4:00 AM SURVEILLANCE AGENT)Only the most recent of10 resultswithin the time period is included. Prothrombin time 17.4 (H) 11.5 - 14.5 sec [facility] INR 1.5 [facility] Comment: [facility] The International Normalized Ratio (INR) is a therapeutic monitoring tool for patients who are stable on oral anticoagulant therapy. An INR of 2.0-3.0 is suggested for deep vein thrombosis/pulmonary embolism. Specimen Blood Performing Organization Address [facility]m Phone Number [facility] DEPARTMENT OF PATHOLOGY [address] [place] [address] XR Chest 1 Vw Portable (09/23/2018 3:58 AM SURVEILLANCE AGENT)Only the most recent of4 resultswithin the time period is included. Narrative Performed At EXAMINATION:XR CHEST 1 VW PORTABLE [facility] CLINICAL HISTORY: 83 years Femalepost-op COMPARISON:09/22/2018 IMPRESSION: 1.A left subclavian biventricular pacemaker/defibrillator is present. 2.The cardiomediastinal silhouette is slightly enlarged. 3.Mild increased interstitial opacities persist. There is minimal retrocardiac volume loss and tiny bilateral pleural effusions. 4.Regional skeletal structures are diffusely osteopenic. [facility]-[id number] Procedure Note Hm Interface, Radiology Results Incoming - 09/23/2018 5:47 AM SURVEILLANCE AGENT EXAMINATION: XR CHEST 1 VW PORTABLE CLINICAL HISTORY: 83 years Female post-op COMPARISON: 09/22/2018 IMPRESSION: 1. A left subclavian biventricular pacemaker/defibrillator is present. 2. The cardiomediastinal silhouette is slightly enlarged. 3. Mild increased interstitial opacities persist. There is minimal retrocardiac volume loss and tiny bilateral pleural effusions. 4. Regional skeletal structures are diffusely osteopenic. [facility]-[id number] Performing Organization Address [facility]/Zipcode Phone Number [facility] [address] [place] [address] Phosphorus level (09/23/2018 3:15 AM SURVEILLANCE AGENT)Only the most recent of5 resultswithin the time period is included. Phosphorus 4.4 2.4 - 4.5 mg/dL [facility] Specimen Plasma specimen Performing Organization Address [facility] Phone Number [facility] DEPARTMENT OF PATHOLOGY [address] [place] [address] Ionized calcium (09/23/2018 3:15 AM SURVEILLANCE AGENT)Only the most recent of4 resultswithin the time period is included. pH 7.30 [facility] Ionized calcium 1.13 1.11 - 1.32 mmol/L [facility] Specimen Plasma specimen Performing Organization Address [facility] Phone Number [facility] DEPARTMENT OF PATHOLOGY [id number] [place] [address] Vancomycin level, trough (09/22/2018 10:20 PM SURVEILLANCE AGENT) Vancomycin, trough 7.1 (L) 10.0 - 20.0 ug/mL [facility] Therapeutic Ranges: Peak30.0 - 40.0 ug/mL Pomllw11.0 - 20.0 ug/mL Specimen Blood Performing Organization Address [facility]/Zipcode Phone Number [facility] DEPARTMENT OF PATHOLOGY [address] [place] [address] AND GENOMIC MEDICINE [facility] [address] Surgical pathology request (09/22/2018 2:34 PM SURVEILLANCE AGENT) [facility] DEPARTMENT OF PATHOLOGY AND GENOMIC MEDICINE Surgical pathology report See link below for PDF [facility] DEPARTMENT OF Lab Report PATHOLOGY AND GENOMIC MEDICINE Result status This is Final Report [facility] DEPARTMENT OF for [id number] PATHOLOGY AND GENOMIC MEDICINE Performing Organization Address City/[facility]/Zipcode Phone Number [facility] DEPARTMENT OF PATHOLOGY [address] [place] [address] AND GENOMIC MEDICINE Echocardiogram complete w contrast and 3D if needed (09/22/2018 12:40 PM SURVEILLANCE AGENT) Ao Root Diameter 3.05 cm [facility] AoV Area, Vmax 2.08 cm2 [facility] AoV Area, VTI 2.48 cm2 [facility] AoV Mean PG 4.85 mmHg [facility] AoV Peak PG 9.51 mmHg [facility] AoV Vmax 1.64 m/s [facility] AoV VTI 0.28 m [facility] IVS,d 1.23 cm [facility] IVS/LVPW,2D 1.02 [facility] Left Atrium Dimension Anterior 5.21 cm [facility] LA Area d A4C 20.05 cm2 [facility] LV,d 5.41 cm [facility] LV EF,2D 44.34 % [facility] LV,s 4.12 cm [facility] LVOT area 3.66 cm2 [facility] LVOT Diam,S 2.16 cm [facility] LVOT Vmax 0.88 m/s [facility] LVOT VTI 0.17 m [facility] LVPWD,d 1.02 cm [facility] TR Vpeak 2.85 mm/s [facility] MV E A ratio 4.22 [facility] TR pk grad 30.27 mmHg [facility] E wave decelartion time 146.23 msec [facility] MV Peak A Ashish 0.22 m/s [facility] MV valve area p 1/2 method 5.19 cm2 [facility] MV Peak E Ashish 0.95 m/s [facility] MV stenosis pressure 1/2 time 42.41 ms [facility] AV LVOT peak gradient 3.09 mmHg [facility] Ao Root Diameter 3.05 cm [facility] LV SYS VOL 88.11 ml [facility] LV GREEN[place] VOL 138.89 ml [facility] LV SV Teich 2D 50.78 ml [facility] LV Vol s Teich PSAX 88.11 ml [facility] AoV Vmn 1.04 [facility] LV FS Teich 2D 17.74 [facility] MV AE ratio 0.24 [facility] LV FS Cube 2D 17.74 [facility] LVOT Vmn 0.61 [facility] Aov area Vmn 2.40 cm2 [facility] LA Vol d MOD A4C 50.19 ml [facility] LVOT mean grad 1.59 mmHg [facility] MAX Pred HR 138.50 [facility] 85 of MPHR 117.72 [facility] Calc MPHR 138.50 bpm [facility] LV SV Cube 2D 68.26 ml [facility] LV vol d cube 2D 153.96 ml [facility] LV vol s cube 2D 85.70 ml [facility] MV Decel slope 6.49 m/s2 [facility] Pred Exer Dur R1 5.58 [facility] Pred METS R1 4.10 [facility] Velocity Ratio (V1/V2) 0.54 m/s [facility] EF 36.56 % [facility] E/A ratio 4.32 [facility] Narrative Performed At The left ventricular chamber size is normal. Left ventricular systolic [facility] function is moderately impaired. Left Ventricular ejection fraction is 30 - 35%. Normal left ventricular wall thickness. Ixvt-[id number]-gysytcbu aortic regurgitation. Mild mitral valve regurgitation. RVSP is 42-47 mm Hg with estimated RAP of 10-15 mm Hg. Performing Organization Address City/State/[facility] Phone Number [facility] [address] [place] [address] Renal (09/21/2018 7:35 PM SURVEILLANCE AGENT) Narrative Performed At EXAMINATION: RENAL [facility] CLINICAL HISTORY:Renal failurechronic (kidney disease) COMPARISON:None. IMPRESSION: Right kidney measures 9 x 3.8 x 5.2 cm. The cortex measures 0.7 cm. A 1 cm cyst is seen of inferior pole. No further workup necessary. No stones or hydronephrosis. Left kidney measures 8.5 x 4.6 x 5.3 cm. The cortex measures 0.8 cm. A subcentimeter simple cyst is seen of the left kidney; no further workup necessary. No stones or hydronephrosis. Greater than expected echogenicity of the kidneys is seen, compatible with medical renal disease. Small ascites. Bladder is decompressed with Zarco catheter in the lumen. [facility]-[id number] Procedure Note Hm Interface, Radiology Results Incoming - 09/22/2018 12:32 AM SURVEILLANCE AGENT EXAMINATION: US RENAL CLINICAL HISTORY: Renal failure chronic (kidney disease) COMPARISON: None. IMPRESSION: Right kidney measures 9 x 3.8 x 5.2 cm. The cortex measures 0.7 cm. A 1 cm cyst is seen of inferior pole. No further workup necessary. No stones or hydronephrosis. Left kidney measures 8.5 x 4.6 x 5.3 cm. The cortex measures 0.8 cm. A subcentimeter simple cyst is seen of the left kidney; no further workup necessary. No stones or hydronephrosis. Greater than expected echogenicity of the kidneys is seen, compatible with medical renal disease. Small ascites. Bladder is decompressed with Zarco catheter in the lumen. [facility]-[id number] Performing Organization Address City/[facility]/Zipcode Phone Number [facility] [address] [place] [address] Lactic acid level (09/21/2018 5:00 PM SURVEILLANCE AGENT)Only the most recent of6 resultswithin the time period is included. Lactic acid 1.0 0.5 - 2.2 mmol/L [facility] Specimen Plasma specimen Performing Organization Address City/[facility]/Zipcode Phone Number [facility] DEPARTMENT OF PATHOLOGY [address] [place] [address] AND [facility] [address] Occult blood, stool (09/21/2018 4:08 PM SURVEILLANCE AGENT)Only the most recent of2 resultswithin the time period is included. Occult blood, stool Negative for occult blood. [facility] Specimen Information Specimen Source: Stool Specimen Site: Nonpreserved Specimen Stool - Nonpreserved Performing Organization Address [facility]/Zipcode Phone Number [facility] DEPARTMENT OF PATHOLOGY [address] [place] [address] AND [facility] [address] [facility] [place] [address] [facility] Us duplex arterial lower extremity (09/21/2018 11:35 AM SURVEILLANCE AGENT)Only the most recent of2 resultswithin the time period is included. Narrative Performed At EXAM: US DUPLEX ARTERIAL LOWER EXTREMITY RIGHT [facility] HISTORY: Claudicationassess for revascularization TECHNIQUE: Real-time as well as pulsed and color Doppler evaluation of the right common femoral, femoral, popliteal, posterior tibial, anterior tibial, and dorsalis pedis arteries are evaluated. The examination includes a full duplex Doppler scan of the blood vessels (real-time P mode grayscale, Doppler spectral analysis, and Doppler color flow imaging). COMPARISON: None available IMPRESSION: 1.Calcified atherosclerotic plaque is identified throughout the interrogated arteries which are patent. 2.Significantly decreased velocity is noted in the right anterior tibial artery which may be related to focal high-grade stenosis at its origin which could be better evaluated with a CTA. 3.Monophasic waveforms predominate throughout the interrogated arteries which may relate to diffuse atherosclerotic disease or inflow stenosis more proximally. This finding could be better evaluated with a CTA. FINDINGS: RIGHT LEG: PEAK SYSTOLIC VELOCITIES ARE FOLLOWS: COMMON FEMORAL:49 cm/s FEMORAL: Proximal: 90 cm/s Mid: 97 cm/s Distal:9 2 cm/s POPLITEAL: Proximal:126 cm/s Mid: 94 cm/s Distal: 92 cm/s POSTERIOR TIBIAL: Proximal: 25 cm/s Mid: 45 cm/s Distal:4 9 cm/s ANTERIOR TIBIAL: Proximal: 151 cm/s Mid: 118 cm/s Distal:1 26 cm/s DORSALIS PEDIS: 92 cm/s DOPPLER WAVEFORMS: COMMON FEMORAL: Biphasic FEMORAL Proximal: Monophasic Mid: Monophasic Distal: Monophasic POPLITEAL Proximal: Monophasic Mid: Monophasic Distal: Monophasic POSTERIOR TIBIAL Proximal: Monophasic Mid: Monophasic Distal: Monophasic ANTERIOR TIBIAL Proximal: Monophasic Mid: Monophasic Distal: Monophasic DORSALIS PEDIS: Monophasic [id number] Procedure Note Interface, Radiology Results Incoming - 09/21/2018 11:43 AM SURVEILLANCE AGENT EXAM: US DUPLEX ARTERIAL LOWER EXTREMITY RIGHT HISTORY: Claudication assess for revascularization TECHNIQUE: Real-time as well as pulsed and color Doppler evaluation of the right common femoral, femoral, popliteal, posterior tibial, anterior tibial, and dorsalis pedis arteries are evaluated. The examination includes a full duplex Doppler scan of the blood vessels (real-time P mode grayscale, Doppler spectral analysis, and Doppler color flow imaging). COMPARISON: None available IMPRESSION: 1. Calcified atherosclerotic plaque is identified throughout the interrogated arteries which are patent. 2. Significantly decreased velocity is noted in the right anterior tibial artery which may be related to focal high-grade stenosis at its origin which could be better evaluated with a CTA. 3. Monophasic waveforms predominate throughout the interrogated arteries which may relate to diffuse atherosclerotic disease or inflow stenosis more proximally. This finding could be better evaluated with a CTA. FINDINGS: RIGHT LEG: PEAK SYSTOLIC VELOCITIES ARE FOLLOWS: COMMON FEMORAL: 49 cm/s FEMORAL: Proximal: 90 cm/s Mid: 97 cm/s Distal: 92 cm/s POPLITEAL: Proximal: 126 cm/s Mid: 94 cm/s Distal: 92 cm/s POSTERIOR TIBIAL: Proximal: 25 cm/s Mid: 45 cm/s Distal: 49 cm/s ANTERIOR TIBIAL: Proximal: 151 cm/s Mid: 118 cm/s Distal: 126 cm/s DORSALIS PEDIS: 92 cm/s DOPPLER WAVEFORMS: COMMON FEMORAL: Biphasic FEMORAL Proximal: Monophasic Mid: Monophasic Distal: Monophasic POPLITEAL Proximal: Monophasic Mid: Monophasic Distal: Monophasic POSTERIOR TIBIAL Proximal: Monophasic Mid: Monophasic Distal: Monophasic ANTERIOR TIBIAL Proximal: Monophasic Mid: Monophasic Distal: Monophasic DORSALIS PEDIS: Monophasic [id number] Performing Organization Address [facility] Phone Number [facility] [address] [place] [address] Troponin (09/21/2018 10:50 AM SURVEILLANCE AGENT) Troponin <0.30 0.00 - 0.30 ng/mL [facility] Comment: HOSPITAL 0.11 - 1.49 ng/mlMay indicate increased risk of acute coronary syndrome. >=1.5 ng/mlConsistent with acute myocardial infarction. The diagnostic value of a single normal or non-diagnostic result is questionable.Serial samples at 2-6 hour intervals are required to rule out acute myocardial injury. Specimen Plasma specimen Performing Organization Address [facility] Phone Number [facility] DEPARTMENT OF PATHOLOGY [address] [facility] [place] [address] AND [employer] [facility] [address] Hepatic function panel (09/21/2018 10:50 AM SURVEILLANCE AGENT) Albumin 2.5 (L) 3.5 - 5.0 g/dL [facility] Total bilirubin <0.2 0.2 - 1.2 mg/dL [facility] Bilirubin direct <0.2 0.0 - 0.3 mg/dL [facility] Alkaline phosphatase 75 35 - 104 U/L [facility] Protein 7.1 6.3 - 8.3 g/dL [facility] ALT <5 (A) 5 - 50 U/L [facility] AST 12 10 - 35 U/L [facility] Specimen Plasma specimen Performing Organization Address City/[facility] Phone Number [facility] DEPARTMENT OF PATHOLOGY [address] [place] [address] Sodium level, urine, random (09/21/2018 8:44 AM SURVEILLANCE AGENT) Total volume, urine 40 mL [facility] Urine sodium concentration 64 mEq/L [facility] Urine sodium excretion 3Comment: Varies with [facility] Specimen Urine Performing Organization Address City/[facility] Phone Number [facility] DEPARTMENT OF PATHOLOGY [address] [place] [address] Protein, urine, random (09/21/2018 8:44 AM SURVEILLANCE AGENT) Total volume, urine 40 mL [facility] Urine protein concentration 11 mg/dL [facility] Urine protein excretion 4 mg/vol [facility] Specimen Urine Performing Organization Address City/[facility]/Zipcode Phone Number [facility] DEPARTMENT OF PATHOLOGY [address] [place] [address] Potassium, urine, random (09/21/2018 8:44 AM SURVEILLANCE AGENT) Total volume, urine 40 mL [facility] Urine potassium concentration 13.1 mEq/L [facility] Urine potassium excretion 0.5Comment: Varies [facility] with [facility] Specimen Urine Performing Organization Address City/[facility] Phone Number [facility] DEPARTMENT OF PATHOLOGY [address] [place] [address] Osmolality, urine (09/21/2018 8:44 AM SURVEILLANCE AGENT) Osmolality, urine 332 50 - 1,400 mOsm/kg [facility] Specimen Urine Performing Organization Address [facility] Phone Number [facility] DEPARTMENT OF PATHOLOGY [address] [place] [address] Creatinine level, urine, random (09/21/2018 8:44 AM SURVEILLANCE AGENT) Total volume, urine 40 mL [facility] Urine creatinine concentration 35 mg/dL [facility] Urine creatinine excretion 14 mg/vol [facility] Specimen Urine Performing Organization Address [facility] Phone Number [facility] DEPARTMENT OF PATHOLOGY [address] [place] [address] Chloride level, urine, random (09/21/2018 8:44 AM SURVEILLANCE AGENT) Total volume, urine 40 mL [facility] Urine chloride concentration 49 mEq/L [facility] Urine chloride excretion 2Comment: Varies with [facility] diet. [facility] Specimen Urine Performing Organization Address [facility] Phone Number [facility] DEPARTMENT OF PATHOLOGY [address] [place] [address] Lactic acid level, SEPSIS - Now and repeat 2x every 3 hours (09/21/2018 7:00 AM SURVEILLANCE AGENT)Only the most recent of2 resultswithin the time period is included. Lactic acid 1.9 0.5 - 2.2 mmol/L [facility] Specimen Plasma specimen Performing Organization Address [facility] Phone Number [facility] DEPARTMENT OF PATHOLOGY [address] [place] [address] AND [facility] [address] [place] [address] HOSPITAL Aerobic culture (09/21/2018 4:20 AM SURVEILLANCE AGENT) Aerobic culture isolate Diphtheroids [facility] (A) Comment: Specimen Information Specimen Source: Wound Specimen Site: right foot Aerobic culture isolate Enterococcus faecalis [facility] The performance characteristics of this assay on this isolate were validated by the Microbiology Laboratory at [facility].This source has not been approved by the U.S. Food and Drug Administration.The results are not intended to be used as the sole means for clinical diagnosis or patient management.The Microbiology Laboratory is authorized under the clinical Laboratory Improvement Amendments of 1988 (CLIA-88) to perform high complexity testing. The performance characteristics of this assay on this isolate were validated by the Microbiology Laboratory at [facility].This source has not been approved by the U.S. Food and Drug Administration.The results are not intended to be used as the sole means for clinical diagnosis or patient management.The Microbiology Laboratory is authorized under the clinical Laboratory Improvement Amendments of 1988 (CLIA-88) to perform high complexity testing. Enterococcus resistant to high levels of Gentamicin. Susceptibility results do not indicate synergy with Penicillins and Vancomycin. This organism is Vancomycin Sensitive. (A) Specimen Wound Organism Antibiotic Method Susceptibility Enterococcus faecalis Ampicillin PEDRO 2 mcg/mL: Susceptible Enterococcus faecalis Erythromycin PEDRO >4 mcg/mL: Resistant Enterococcus faecalis Gentamicin-Syn PEDRO >500 mcg/mL: Resistant Enterococcus faecalis Linezolid PEDRO 2 mcg/mL: Susceptible Enterococcus faecalis Minocycline PEDRO >8 mcg/mL: Resistant Enterococcus faecalis Vancomycin PEDOR 1 mcg/mL: Susceptible Performing Organization Address [facility] Phone Number [facility] DEPARTMENT OF PATHOLOGY AND [address] [place] [address] [facility] [address] [place] [id number] Gram stain (09/21/2018 4:20 AM SURVEILLANCE AGENT)Only the most recent of2 resultswithin the time period is included. Gram stain isolate Rare WBC's [facility] Occasional Gram positive cocci in pairs Occasional Gram positive rods Comment: Specimen Information Specimen Source: Wound Specimen Site: right foot Specimen Wound Performing Organization Address [facility] Phone Number [facility] DEPARTMENT OF PATHOLOGY AND [address] [place] [address] [address] Anaerobic culture (09/21/2018 4:20 AM SURVEILLANCE AGENT) [facility] The performance characteristics of this assay on this isolate HOSPITAL were validated by the Microbiology Laboratory at [facility].This source has not been approved by the U.S. Food and Drug Administration.The results are not intended to be used as the sole means for clinical diagnosis or patient management.The Microbiology Laboratory is authorized under the clinical Laboratory Improvement Amendments of 1988 (CLIA-88) to perform high complexity testing. (A) Comment: Specimen Information Specimen Source: Wound Specimen Site: left foot Specimen Wound Performing Organization Address City/State/Zipcode Phone Number [facility] DEPARTMENT OF PATHOLOGY AND [address] [place] [address] [place] [address] Urinalysis, automated with microscopy (09/20/2018 11:16 PM SURVEILLANCE AGENT) Color, UA Yellow [facility] Appearance, UA Sl Cloudy [facility] Specific gravity, UA 1.010 1.001 - 1.030 [facility] pH, UA 5.0 5.0 - 9.0 [facility] Protein, UA Negative Negative [facility] Glucose, UA Negative Negative [facility] Ketones, UA Negative Negative [facility] Bilirubin, UA Negative Negative [facility] Blood, UA Negative Negative [facility] Nitrite, UA Negative Negative [facility] Urobilinogen, UA <2.0 <2.0 E.U./dL [facility] Leukocyte esterase, UA Large (A) Negative [facility] Epithelial cells, UA 3 /HPF [facility] Round epithelial cells, UA <1 0 - 5 /HPF [facility] WBC, UA 79 (H) 0 - 4 /HPF [facility] RBC, UA None seen 0 - 5 /HPF [facility] Bacteria, UA Few None seen [facility] Calcium oxalate crystals, UA Few [facility] WBC clumps, UA Few (A) [facility] Yeast, UA None seen [facility] Yeast with pseudohyphae, UA None seen [facility] Specimen Urine Performing Organization Address City/State/Zipcode Phone Number [facility] DEPARTMENT OF PATHOLOGY [address] [place] [address] AND [facility] [address] [place] [address] HOSPITAL Blood culture, aerobic & anaerobic (09/20/2018 9:35 PM SURVEILLANCE AGENT)Only the most recent of4 resultswithin the time period is included. Blood culture isolate No growth after 5 days of incubation. [facility] Comment: HOSPITAL Specimen Information Specimen Source: Blood Specimen Site: Forearm, left Specimen Blood - Forearm, left Performing Organization Address [facility] Phone Number [facility] DEPARTMENT OF PATHOLOGY AND [address] [place] [address] [facility] [address] [place] [address] XR Foot 2 Vw Right (09/20/2018 9:28 PM SURVEILLANCE AGENT) Narrative Performed At EXAMINATION:XR FOOT 2 VW RIGHT RADIANT CLINICAL HISTORY:Osteomyelitis suspectedfoot swellingdiabetic COMPARISON:None available at this time. IMPRESSION: Tapered erosion of the fifth metatarsal head and erosion of the opposing proximal phalangeal base may be due to neuropathic arthropathy or an inflammatory arthropathy such as reactive or psoriatic arthritis. 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 Bones are severely demineralized. Changes of osteoarthritis are seen within the ankle, midfoot, and forefoot. Flexion deformity DIP joint of the great toe. Several hammertoes. Soft tissue swelling of the forefoot. Diffuse and severe arterial calcifications. No radiopaque foreign body or soft tissue gas. [facility]-[id number] Procedure Note Hm Interface, Radiology Results Incoming - 09/20/2018 10:00 PM SURVEILLANCE AGENT EXAMINATION: XR FOOT 2 VW RIGHT CLINICAL HISTORY: Osteomyelitis suspected foot swelling diabetic COMPARISON: None available at this time. IMPRESSION: Tapered erosion of the fifth metatarsal head and erosion of the opposing proximal phalangeal base may be due to neuropathic arthropathy or an inflammatory arthropathy such as reactive or psoriatic arthritis. 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 Bones are severely demineralized. Changes of osteoarthritis are seen within the ankle, midfoot, and forefoot. Flexion deformity DIP joint of the great toe. Several hammertoes. Soft tissue swelling of the forefoot. Diffuse and severe arterial calcifications. No radiopaque foreign body or soft tissue gas. [facility]-[id number] Performing Organization Address City/State/Zipcode Phone Number [facility] [address] [place] [address] Estimated GFR (11/13/2017 4:45 AM CDT)Only the most recent of13 resultswithin the time period is included. GFR Non Af Amer 19 (A) mL/min/1.73 m2 [facility] DEPARTMENT OF PATHOLOGY AND GENOMIC MEDICINE GFR Af Amer 24 (A) mL/min/1.73 m2 [facility] DEPARTMENT OF Comment: PATHOLOGY AND GENOMIC [...] Americans. Specimen Plasma specimen Performing Organization Address City/[facility] Phone Number [facility] DEPARTMENT OF PATHOLOGY [address] [place] [address]. [place] [address] AND [facility] Hemoglobin & hematocrit (11/08/2017 10:05 AM CDT)Only the most recent of4 resultswithin the time period is included. HGB 9.8 (L) 12.0 - 16.0 g/dL [facility] DEPARTMENT OF PATHOLOGY AND GENOMIC MEDICINE HCT 27.8 (L) 37.0 - 47.0 % [facility] DEPARTMENT OF PATHOLOGY AND GENOMIC MEDICINE Specimen Blood Performing Organization Address [facility] Phone Number [facility] DEPARTMENT OF PATHOLOGY [address] [place] [address] AND [employer] [facility] Transfuse fresh frozen plasma (11/08/2017 3:32 AM CDT)Only the most recent of5 resultswithin the time period is included.Fibrinogen (11/08/2017 2:45 AM CDT) Fibrinogen 210 200 - 450 mg/dL [facility] DEPARTMENT OF PATHOLOGY AND [facility] Specimen Blood Performing Organization Address City/State/Zipcode Phone Number [facility] DEPARTMENT OF PATHOLOGY [address] [facility] [place] [address] AND [facility] Transfuse platelets (11/07/2017 10:07 PM CDT)Only the most recent of2 resultswithin the time period is included.Hemoglobin A1c (11/07/2017 5:10 PM CDT) Hemoglobin A1C 5.9 4.0 - 6.0 % [facility] DEPARTMENT OF PATHOLOGY Comment: AND GENOMIC MEDICINE Less than 6% - Goal of therapy for Type II Diabetes Less than 7%-Goal of therapy for Type I Diabetes Less than 8%-Acceptable control for Type I or Type II Diabetes Greater than 8%-Unacceptable control; action indicated. ([id number]) Specimen Blood Performing Organization Address City/State/Zipcode Phone Number [facility] DEPARTMENT OF PATHOLOGY [address] [facility] [place] [address] AND [facility] IR PICC Placement (11/06/2017 2:06 PM CDT) Narrative Performed At Procedure: PICC insertion. [facility] Clinical indication: Need for long-term intravenous [...] fluoroscopy. The needle was removed and a 5.5-Austrian peel-away sheath was then placed. Under ultrasound guidance, documentation of vessel patency, needle access with permanent recording, and reporting are performed followed by placement of a sheath in the right basilic vein. A 38 cm long 5-Austrian dual-lumen Power PICC was then deployed over [...] fluoroscopy. The needle was removed and a 5.5-Austrian peel-away sheath was then placed. Under ultrasound guidance, documentation of vessel patency, needle access with permanent recording, and reporting are performed followed by placement of a sheath in the right basilic vein. A 38 cm long 5-Austrian dual-lumen Power PICC was then deployed over [...] insertion. Performing Organization Address City/State/Zipcode Phone Number [facility] [address] [place] [address] [place] Guided Vascular Access (11/06/2017 2:06 PM CDT) Narrative Performed At Procedure: PICC insertion. ISABELLA [...] fluoroscopy. The needle was removed and a 5.5-Austrian peel-away sheath was then placed. Under ultrasound guidance, documentation of vessel patency, needle access with permanent recording, and reporting are performed followed by placement of a sheath in the right basilic vein. A 38 cm long 5-Austrian dual-lumen Power PICC was then deployed over [...] fluoroscopy. The needle was removed and a 5.5-Austrian peel-away sheath was then placed. Under ultrasound guidance, documentation of vessel patency, needle access with permanent recording, and reporting are performed followed by placement of a sheath in the right basilic vein. A 38 cm long 5-Austrian dual-lumen Power PICC was then deployed over [...] insertion. Performing Organization Address City/State/Zipcode Phone Number [facility] [address] [place] [address] Total iron binding capacity (11/05/2017 4:35 AM CDT) Iron level 106 37 - 145 ug/dL [facility] DEPARTMENT OF PATHOLOGY AND GENOMIC MEDICINE Iron binding capacity 137 (L) 260 - 460 ug/dL [facility] DEPARTMENT OF PATHOLOGY AND GENOMIC MEDICINE % Saturation 77.4 (H) 15.0 - 38.0 % [facility] DEPARTMENT OF PATHOLOGY AND GENOMIC MEDICINE Specimen Plasma specimen Performing Organization Address City/[facility] Phone Number [facility] DEPARTMENT OF PATHOLOGY [address] [place] [address] AND [facility] Folate level (11/05/2017 4:35 AM CDT) Folate 2.9 (L) 4.8 - 24.2 ng/mL [facility] DEPARTMENT OF PATHOLOGY AND GENOMIC MEDICINE Specimen Serum Performing Organization Address City/[facility] Phone Number [facility] DEPARTMENT OF PATHOLOGY AND [address] [place] [address] Ferritin level (11/05/2017 4:35 AM CDT) Ferritin level 439 (H) 13 - 150 ng/mL [facility] DEPARTMENT OF PATHOLOGY AND GENOMIC MEDICINE Specimen Plasma specimen Performing Organization Address City/[facility] Phone Number [facility] DEPARTMENT OF PATHOLOGY AND [address] [place] [address] Prepare platelet pheresis, 1 Units (11/04/2017 9:10 AM CDT) Product name Apheresis PLT, Leukored IRR [facility] DEPARTMENT OF 2 PATHOLOGY AND GENOMIC MEDICINE Unit number [id number] [facility] DEPARTMENT OF PATHOLOGY AND GENOMIC MEDICINE Product code [id number] [facility] DEPARTMENT OF PATHOLOGY AND GENOMIC MEDICINE Dispense status Transfused [facility] DEPARTMENT OF PATHOLOGY AND GENOMIC MEDICINE Blood expiration date [facility] DEPARTMENT OF PATHOLOGY AND GENOMIC MEDICINE Blood type code 6200 [facility] DEPARTMENT OF PATHOLOGY AND GENOMIC MEDICINE Blood type A POSITIVE [facility] DEPARTMENT OF PATHOLOGY AND GENOMIC MEDICINE Performing Organization Address City/[facility] Phone Number [facility] DEPARTMENT OF PATHOLOGY [address] [place] [address] AND [employer] Prepare fresh frozen plasma, 4 Units (11/04/2017 9:10 AM CDT) Product name Thawed Plasma [facility] DEPARTMENT OF PATHOLOGY AND GENOMIC MEDICINE Unit number [id number] [facility] DEPARTMENT OF PATHOLOGY AND GENOMIC MEDICINE Product code [id number] [facility] DEPARTMENT OF PATHOLOGY AND GENOMIC MEDICINE Dispense status Transfused [facility] DEPARTMENT OF PATHOLOGY AND GENOMIC MEDICINE Blood expiration date [facility] DEPARTMENT OF PATHOLOGY AND GENOMIC MEDICINE Blood type code 8400 [facility] DEPARTMENT OF PATHOLOGY AND GENOMIC MEDICINE Blood type AB POSITIVE [facility] DEPARTMENT OF PATHOLOGY AND GENOMIC MEDICINE Product name Thawed Plasma [facility] DEPARTMENT OF PATHOLOGY AND GENOMIC MEDICINE Unit number [id number] [facility] DEPARTMENT OF PATHOLOGY AND GENOMIC MEDICINE Product code [id number] [facility] DEPARTMENT OF PATHOLOGY AND GENOMIC MEDICINE Dispense status Transfused [facility] DEPARTMENT OF PATHOLOGY AND GENOMIC MEDICINE Blood expiration date [facility] DEPARTMENT OF PATHOLOGY AND GENOMIC MEDICINE Blood type code 8400 [facility] DEPARTMENT OF PATHOLOGY AND GENOMIC MEDICINE Blood type AB POSITIVE [facility] DEPARTMENT OF PATHOLOGY AND GENOMIC MEDICINE Product name Thawed Plasma [facility] DEPARTMENT OF PATHOLOGY AND GENOMIC MEDICINE Unit number [id number] [facility] DEPARTMENT OF PATHOLOGY AND GENOMIC MEDICINE Product code [id number] [facility] DEPARTMENT OF PATHOLOGY AND GENOMIC MEDICINE Dispense status Transfused [facility] DEPARTMENT OF PATHOLOGY AND GENOMIC MEDICINE Blood expiration date [facility] DEPARTMENT OF PATHOLOGY AND GENOMIC MEDICINE Blood type code 8400 [facility] DEPARTMENT OF PATHOLOGY AND GENOMIC MEDICINE Blood type AB POSITIVE [facility] DEPARTMENT OF PATHOLOGY AND GENOMIC MEDICINE Product name Thawed Plasma [facility] DEPARTMENT OF PATHOLOGY AND GENOMIC MEDICINE Unit number [id number] [facility] DEPARTMENT OF PATHOLOGY AND GENOMIC MEDICINE Product code [id number] [facility] DEPARTMENT OF PATHOLOGY AND GENOMIC MEDICINE Dispense status Transfused [facility] DEPARTMENT OF PATHOLOGY AND GENOMIC MEDICINE Blood expiration date [facility] DEPARTMENT OF PATHOLOGY AND GENOMIC MEDICINE Blood type code 8400 [facility] DEPARTMENT OF PATHOLOGY AND GENOMIC MEDICINE Blood type AB POSITIVE [facility] DEPARTMENT OF PATHOLOGY AND GENOMIC MEDICINE Specimen Blood Performing Organization Address City/[facility] Phone Number [facility] DEPARTMENT OF PATHOLOGY [address] [place] [address] AND [facility] Thyroid stimulating hormone (11/04/2017 4:40 AM CDT) TSH 2.28 0.27 - 4.20 uIU/mL [facility] DEPARTMENT OF PATHOLOGY AND GENOMIC MEDICINE Specimen Plasma specimen Performing Organization Address [facility]/Zipcode Phone Number [facility] DEPARTMENT OF PATHOLOGY [address] [place] [address] AND [facility] Digoxin level (11/04/2017 4:40 AM CDT) Digoxin 3.2 (HH) 0.8 - 2.0 ng/mL [facility] DEPARTMENT OF PATHOLOGY Comment: AND [facility] For valid Digoxin results, at least 6 hours should elapse between time of last dose and collection of blood. Otherwise, result may be false high. Therapeutic Range: 0.8 - 2.0 ng/mL Final results called to and read back by JOAN MATTHEWS 11/04/2017 05:58 AR Specimen Plasma specimen Performing Organization Address City/State/Zipcode Phone Number [facility] DEPARTMENT OF PATHOLOGY [address] [place] [address] AND [facility] Urinalysis screen and microscopy, with reflex to culture (11/03/2017 2:45 PM CDT) Specimen site [place] [facility] DEPARTMENT OF PATHOLOGY AND GENOMIC MEDICINE Color, UA Yellow [facility] DEPARTMENT OF PATHOLOGY AND GENOMIC MEDICINE Appearance, UA Turbid [facility] DEPARTMENT OF PATHOLOGY AND GENOMIC MEDICINE Specific gravity, UA 1.009 1.001 - 1.030 [facility] DEPARTMENT OF PATHOLOGY AND GENOMIC MEDICINE pH, UA 5.0 5.0 - 9.0 [facility] DEPARTMENT OF PATHOLOGY AND GENOMIC MEDICINE Protein, UA 1+ (A) Negative [facility] DEPARTMENT OF PATHOLOGY AND GENOMIC MEDICINE Glucose, UA Negative Negative [facility] DEPARTMENT OF PATHOLOGY AND GENOMIC MEDICINE Ketones, UA Trace (A) Negative [facility] DEPARTMENT OF PATHOLOGY AND GENOMIC MEDICINE Bilirubin, UA Negative Negative [facility] DEPARTMENT OF PATHOLOGY AND GENOMIC MEDICINE Blood, UA Moderate (A) Negative [facility] DEPARTMENT OF PATHOLOGY AND GENOMIC MEDICINE Nitrite, UA Negative Negative [facility] DEPARTMENT OF PATHOLOGY AND GENOMIC MEDICINE Urobilinogen, UA <2.0 <2.0 E.U./dL [facility] DEPARTMENT OF PATHOLOGY AND GENOMIC MEDICINE Leukocyte esterase, UA Large (A) Negative [facility] DEPARTMENT OF PATHOLOGY AND GENOMIC MEDICINE Epithelial cells, UA 7 /HPF [facility] DEPARTMENT OF PATHOLOGY AND GENOMIC MEDICINE WBC, UA >200 (H) 0 - 4 /HPF [facility] DEPARTMENT OF PATHOLOGY AND GENOMIC MEDICINE RBC, UA 84 (H) 0 - 2 /HPF [facility] DEPARTMENT OF PATHOLOGY AND GENOMIC MEDICINE Bacteria, UA Few None seen [facility] DEPARTMENT OF PATHOLOGY AND GENOMIC MEDICINE WBC clumps, UA Many (A) [facility] DEPARTMENT OF PATHOLOGY AND GENOMIC MEDICINE Yeast, UA Few (A) [facility] DEPARTMENT OF PATHOLOGY AND GENOMIC MEDICINE Yeast with pseudohyphae, UA None seen [facility] DEPARTMENT OF PATHOLOGY AND GENOMIC MEDICINE Hyaline casts, UA >20 (A) /LPF [facility] DEPARTMENT OF PATHOLOGY AND GENOMIC MEDICINE Specimen Urine Performing Organization Address City/State/Zipcode Phone Number [facility] DEPARTMENT OF PATHOLOGY [address] [place] [address] AND GENOMIC MEDICINE Urine culture (11/03/2017 2:45 PM CDT) Urine culture isolate Rosy glabrata [facility] DEPARTMENT OF >10-5 cfu/ml PATHOLOGY AND GENOMIC The performance characteristics of this assay on this isolate MEDICINE were validated by the Microbiology Laboratory at [facility].This source has not been approved by the [...] BP >256 mcg/mL: Resistant Performing Organization Address City/State/Zipcode Phone Number [facility] DEPARTMENT OF PATHOLOGY AND [address] [place] [address] [employer] MEDICINE after 10/22/2017 Insurance Payer Benefit Plan / Group Subscriber ID Type Phone Address MEDICAID MEDICAID xxxxxxxxx Medicaid MEDICARE MEDICARE PART A AND B xxxxxxxxxxx Medicare [place], [place] (Home) [place] [address] Advance Directives Patient has advance care planning documents on file. For more information, please contact:[facility] [place] [address]
--- OUTSIDE RECORDS SUMMARY | 2018-10-23 10:29 | XMS REPORT ---
:1935 [facility] Address [address] [place] [address] Dr. [address] [place] [address] Care Team Providers Name Role Phone HARDIK [...] Department ID 2017-09-10 2017-09-10 Outpatient Telma COOK [facility] [id number] 18:56:00 18:56:00 HARDIK 2017-07-01 2017-07-04 Inpatient DAWOOD CARVALHO TELE [id number] 22:15:00 15:46:00 BYRON Results Test Description Test Time Test Comments Text Results Atomic Results Result Comments Sed Rate ESR ([place]) 2017-09-10 22:33:00 Test Item Value Reference Range Comments ESR (test code=HESR) 44 mm/Hr 0-20 CBC with [id number] 20:59:00 Test Item Value Reference Range Comments [...] Lymph Abs (test code=ALYMPH) 1.6 K/cumm 0.5-4.6 [facility] Abs (test code=AMONO) 0.5 K/cumm 0.0-1.2 Eos Abs (test code=AEOS) 0.10 K/cumm 0.00-0.74 Baso Abs (test code=ABASO) 0.0 K/cumm 0.00-0.21 Hypochromic (test code=HYPO) Slight Lipid [id number] 20:09:00 Test Item Value Reference Range Comments Cholesterol (test 208 mg/dL 0-200 code=CHOL) Triglycerides (test 178 mg/dL 9-200 code=TRIG) HDL (test code=HDL) 45 mg/dL 50-60 Chol/HDL (test 4.6 Ratio 0.0-4.4 code=CHOLPHDL) LDL, Calculated (test 127 mg/dL 0-130 (NOTE)RISK OF HEART code=LDLC) DISEASEPublished by Egyptian Heart AssociationAnalyte Optimal Boderline Increased RiskCHOL <200 200-239 >240TRIG <150 150-199 >200HDL Male: >60 <40HDL Female: >60 <50LDL <100 130-159 >160LDL NEAR OPTIMAL IS 100-129 VLDL (test code=VLDL) 36 mg/dL 5-40 LDL/HDL (test code=LDLPHDL) 3 [id number] 20:09:00 Test Item Value Reference Range Comments Lipase (test code=LIP) 31 U/L 13-60 [id number] 20:09:00 Test Item Value Reference Range Comments Amylase (test code=SHAKIR) 92 U/L 28-100 [id number] 20:09:00 Test Item Value Reference Range Comments NT ProBnp (test code=PBNP) 36833 pg/mL 0-449 Comprehensive Metabolic [id number] 20:09:00 Test Item Value Reference Range Comments [...] race is not provided, and the patient isAfrican-Egyptian, multiply by 1.212. If sex is not provided, and thepatient is female, multiply by 0.742. Results for patients <18 years ofage have not been validated by the MDRD study and should be interpretedwith caution.eGFR Result Interpretation:eGFR > or=60 is in the Normal RangeeGFR < 60 may mean kidney diseaseeGFR < 15 may mean kidney failureRanges recommended by the National Kidney Foundation,http://nkdep.nih .gov BLOOD [id number] 23:30:00 Test Item Value Reference Range Comments Culture Observations (test code=COB1) NO GROWTH AFTER 5 DAYS BLOOD [id number] 23:30:00 Test Item Value Reference Range Comments Culture Observations (test code=COB1) NO GROWTH AFTER 5 DAYS WOUND/SKIN/ABS.&GRAMSTAIN [id number] 08:20:00 Test Item Value Reference Range Comments [...] (test code=lev) ug/mL GLUCOMETER GLUCOSE- LAB USE [id number] 11:39:00 Test Item Value Reference Range Comments GLUCOMETER (test code=GMG) 113 mg/dL 70-100 DAILY MAINTENANCEMeter ID: [id number]: 9086 JAYY NAVARRO URINE [id number] 11:21:00 Test Item Value Reference Range Comments Isolate 1 (test code=ISO1) Pseudomonas aeruginosa piperacillin/tazobactam (test ug/mL code=tzp) ceftazidime (test code=santos) ug/mL cefepime (test code=fep) ug/mL meropenem (test code=mem) ug/mL gentamicin (test code=gm) ug/mL tobramycin (test code=tob) ug/mL levofloxacin (test code=lev) ug/mL WOUND/SKIN/ABS.&GRAMSTAIN [id number] 10:08:00 Test Item Value Reference Range Comments [...] (test code=lev) ug/mL GLUCOMETER GLUCOSE- LAB USE [id number] 05:13:00 Test Item Value Reference Range Comments GLUCOMETER (test code=GMG) 81 mg/dL 70-100 CLEANED METERMeter ID: [id number]: [id number] LETDWAYNE GOLDMAN PRO TIME AND [id number] 04:39:00 Test Item Value Reference Range Comments [...] Heparin. Order Code is ANTI-XA COMPREHENSIVE METABOLIC [id number] 04:32:00 Test Item Value Reference Range Comments [...] (test code=RBCMOR) NORMAL GLUCOMETER GLUCOSE- LAB USE [id number] 21:05:00 Test Item Value Reference Range Comments GLUCOMETER (test code=GMG) 116 mg/dL 70-100 Meter ID: [id number]: [id number] ROBERT GOLDMAN GLUCOMETER GLUCOSE- LAB USE [id number] 16:42:00 Test Item Value Reference Range Comments GLUCOMETER (test code=GMG) 247 mg/dL 70-100 DAILY MAINTENANCEMeter ID: [id number]: 9086 JAYY NAVARRO GLUCOMETER GLUCOSE- LAB USE [id number] 13:21:00 Test Item Value Reference Range Comments GLUCOMETER (test code=GMG) 206 mg/dL 70-100 DAILY MAINTENANCEMeter ID: [id number]: 9086 JAYY NAVARRO U/S KIDNEY (RENAL)2017-07-03 12:24:18RENAL ULTRASOUNDLocation Code: [id number] HISTORY: arfCOMPARISON: None.COMMENT: Real-time sonographic images of [...] acute abnormality.U/S ART FLW DOPPLER STELLA LOW [id number] 11:52:11BILATERAL LOWER EXTREMITY ARTERIAL DOPPLER :Location code: [id number] HISTORY: Bilateral leg pain with peripheral vascular [...] RBC MORPH (test code=RBCMOR) NORMAL COMPREHENSIVE METABOLIC [id number] 06:16:00 Test Item Value Reference Range Comments [...] 8 IU/L <=78 GLUCOMETER GLUCOSE- LAB USE [id number] 05:30:00 Test Item Value Reference Range Comments GLUCOMETER (test code=GMG) 118 mg/dL 70-100 CLEANED METERMeter ID: [id number]: 2907 MARGE WordseyeSU GLUCOMETER GLUCOSE- LAB USE [id number] 22:27:00 Test Item Value Reference Range Comments GLUCOMETER (test code=GMG) 158 mg/dL 70-100 Meter ID: [id number]: 2907 MARGE OWSU GLUCOMETER GLUCOSE- LAB USE [id number] 21:35:00 Test Item Value Reference Range Comments GLUCOMETER (test code=GMG) 63 mg/dL 70-100 Meter ID: [id number]: 2907 MARGE OWSU EOSINOPHIL SMEAR [id number] 19:44:00 Test Item Value Reference Range Comments EO URINE (test code=EOU) MODERATE /OIF NONE SEEN CREATININE RANDOM [id number] 19:30:00 Test Item Value Reference Range Comments CREA RAND (test code=CREAR) 47.8 mg/dL NRR (test code=NRR) * NO REFRENCE RANGE AVAILABLE FOR RANDOM SPECIMEN* PROTEIN URINE [id number] 19:18:00 Test Item Value Reference Range Comments HOWARD DOE (test code=AL) 76 mg/dL NRR (test code=NRR) * NO REFRENCE RANGE AVAILABLE FOR RANDOM SPECIMEN* GLUCOMETER GLUCOSE- LAB USE [id number] 15:24:00 Test Item Value Reference Range Comments GLUCOMETER (test code=GMG) 148 mg/dL 70-100 CLEANED METERMeter ID: [id number]: [id number] ISAAC YU GLUCOMETER GLUCOSE- LAB USE [id number] 12:43:00 Test Item Value Reference Range Comments GLUCOMETER (test code=GMG) 184 mg/dL 70-100 Meter ID: [id number]: [id number] NICOL SATYA CARDIAC [id number] 12:26:00 Test Item Value Reference Range Comments TROPONIN I (test code=A84) 0.098 ng/mL 0.000-0.045 CKMB (test code=A49) 5.0 ng/mL <=3.6 CPK (test code=32A) 58 IU/L 26-192 [id number] 12:23:00 Test Item Value Reference Range Comments Hb A1C % (test code=HBA) 8.8 % 4.2-6.3 URINALYSIS WITH [id number] 12:15:00 Test Item Value Reference Range Comments [...] NO RBC MORPH (test code=RBCMOR) NORMAL CARDIAC [id number] 05:42:00 Test Item Value Reference Range Comments TROPONIN I (test code=A84) 0.105 ng/mL 0.000-0.045 CKMB (test code=A49) 4.2 ng/mL <=3.6 CPK (test code=32A) 47 IU/L 26-192 CBC with [id number] 05:10:00 Test Item Value Reference Range Comments [...] Lymph Abs (test code=ALYMPH) 1.2 K/cumm 0.5-4.6 [facility] Abs (test code=AMONO) 0.4 K/cumm 0.0-1.2 Eos Abs (test code=AEOS) 0.07 K/cumm 0.00-0.74 Baso Abs (test code=ABASO) 0.0 K/cumm 0.00-0.21 RBC Morphology (test Slight Hypochromia code=RBCMRPH) Platelet Est (test code=PLTEST) Adequate Platelets on Smear Glycosylated [id number] 03:33:00 Test Item Value Reference Range Comments HBA1c (test code=HBA1C) 9.5 % 4.8-5.9 Comprehensive Metabolic [id number] 00:02:00 Test Item Value Reference Range Comments [...] race is not provided, and the patient isAfrican-Egyptian, multiply by 1.212. If sex is not provided, and thepatient is female, multiply by 0.742. Results for patients <18 years ofage have not been validated by the MDRD study and should be interpretedwith caution.eGFR Result Interpretation:eGFR > or=60 is in the Normal RangeeGFR < 60 may mean kidney diseaseeGFR < 15 may mean kidney failureRanges recommended by the National Kidney Foundation,http://nkdep.nih. gov Lipid [id number] 00:02:00 Test Item Value Reference Range Comments Cholesterol (test 251 mg/dL 0-200 code=CHOL) Triglycerides (test 201 mg/dL 9-200 code=TRIG) HDL (test code=HDL) 44 mg/dL 50-60 Chol/HDL (test 5.7 Ratio 0.0-4.4 code=CHOLPHDL) LDL, Calculated (test 167 0-130 (NOTE)RISK OF HEART code=LDLC) DISEASEPublished by Egyptian Heart AssociationAnalyte Optimal Boderline Increased RiskCHOL <200 200-239 >240TRIG <150 150-199 >200HDL Male: >60 <40HDL Female: >60 <50LDL <100 130-159 >160LDL NEAR OPTIMAL IS 100-129 VLDL (test code=VLDL) 40 mg/dL 5-40 LDL/HDL (test code=LDLPHDL) 4
--- NOTE | 2018-10-23 11:32 | EDPHYS ---
Physician Documentation [facility] Name: Karissa Frias Age: 83 yrs Sex: Female : 1935 Arrival Date: 10/23/2018 Time: 10:26 Bed 16 Private MD: Carlton Owen E ED Physician Bam Rizzo HPI: 10/23 11:04 This 83 yrs old Black Female presents to ER via Wheelchair with complaints of Suture snw Removal, Problem With Urinary Catheter. 11:04 The patient has pranva on the right knee. Previous treatment: 09/22/18 transferred to snw [facility], FANI performed. Order written from surgeon to have pranav and gamble removed yesterday. . Sutures/pranav progress: The patient has no c/o's. The wound is well-healing with no redness, swelling, discharge, or dehiscence reported. as noted. Historical: - Allergies: 10:40 No Known Allergies; tw2 - Home Meds: 10:40 acetaminophen 325 mg Oral tab 2 tabs every 4 hours for Pain [Active]; aspirin 81 mg tw2 Oral TbEC 1 tab once daily [Active]; carvedilol 12.5 mg Oral tab 1 tab 2 times per day [Active]; digoxin 125 mcg Oral tab 1 tab once daily [Active]; furosemide 40 mg Oral tab 1 tab 2 times per day [Active]; melatonin 3 mg Oral tab nightly [Active]; hydralazine 25 mg Oral tab [Active]; metformin 500 mg Oral tab 1 tab 2 times per day [Active]; mupirocin 2 % Topical oint twice a day [Active]; Nephro-Josh 0.8 mg Oral tab [Active]; nifedipine 90 mg Oral TbER 1 tab once daily [Active]; Plavix 75 mg Oral tab 1 tab once daily [Active]; - PMHx: 10:40 Atrial Fib; DYSPHAGIA; Anemia; CAD; Diabetes - NIDDM; CHF; High Cholesterol; tw2 Hypertension; osteomyelitis; Renal Disease; - PSHx: 10:40 pacer/defib; PEG tube; triple bypass; tw2 - Immunization history:: Adult Immunizations. - Ebola Screening: : No symptoms or risks identified at this time. - Social history:: Smoking status: . ROS: 11:06 Constitutional: Negative for fever, chills, and weight loss, Eyes: Negative for injury, snw pain, redness, and discharge, ENT: Negative for injury, pain, and discharge, Neck: Negative for injury, pain, and swelling, Cardiovascular: Negative for chest pain, palpitations, and edema, Respiratory: Negative for shortness of breath, cough, wheezing, and pleuritic chest pain, Abdomen/GI: Negative for abdominal pain, nausea, vomiting, diarrhea, and constipation, Back: Negative for injury and pain, : Negative for injury, bleeding, discharge, and swelling, gamble in place. Orders for gamble removal in hand Skin: Negative for injury, rash, and discoloration, Neuro: Negative for headache, weakness, numbness, tingling, and seizure, Psych: Negative for depression, anxiety, suicide ideation, homicidal ideation, and hallucinations. Exam: 11:19 Constitutional: This is a well developed, well nourished patient who is awake, alert, snw and in no acute distress. Head/Face: Normocephalic, atraumatic. Eyes: Pupils equal round and reactive to light, extra-ocular motions intact. Lids and lashes normal. Conjunctiva and sclera are non-icteric and not injected. Cornea within normal limits. Periorbital areas with no swelling, redness, or edema. ENT: Nares patent. No nasal discharge, no septal abnormalities noted. Tympanic membranes are normal and external auditory canals are clear. Oropharynx with no redness, swelling, or masses, exudates, or evidence of obstruction, uvula midline. Mucous membranes moist. Neck: Trachea midline, no thyromegaly or masses palpated, and no cervical lymphadenopathy. Supple, full range of motion without nuchal rigidity, or vertebral point tenderness. No Meningismus. Chest/axilla: Normal chest wall appearance and motion. Nontender with no deformity. No lesions are appreciated. Cardiovascular: Regular rate and rhythm with a normal S1 and S2. No gallops, murmurs, or rubs. Normal PMI, no JVD. No pulse deficits. Respiratory: Lungs have equal breath sounds bilaterally, clear to auscultation and percussion. No rales, rhonchi or wheezes noted. No increased work of breathing, no retractions or nasal flaring. Abdomen/GI: Soft, non-tender, with normal bowel sounds. No distension or tympany. No guarding or rebound. No evidence of tenderness throughout. Back: No spinal tenderness. No costovertebral tenderness. Full range of motion. Skin: Warm, dry with normal turgor. Normal color with no rashes, no lesions, and no evidence of cellulitis. Surgical site with well healed appearance, pranav intact, removed on assessment. Stump cleansed with hibiclens and dressing ordered MS/ Extremity: Pulses equal, no cyanosis. Neurovascular intact. Full, normal range of motion. 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 Cranial nerves II-XII grossly intact. Motor strength 5/5 in all extremities. Sensory grossly intact. Cerebellar exam normal. Normal gait. Psych: Awake, alert, with orientation to person, place and time. Behavior, mood, and affect are within normal limits. Vital Signs: 10:57 BP 151 / 81; Pulse 78; Resp 18; Temp 97.9(A); Pulse Ox 100% on R/A; Pain 0/10; tw2 11:30 BP 137 / 79; Pulse 82; Resp 17; Pulse Ox 98% on R/A; tw2 MDM: 10:34 Patient medically screened. snw 11:31 Data reviewed: vital signs, nurses notes. Data interpreted: Pulse oximetry: on room air snw is 98 %. Interpretation: normal. Counseling: I had a detailed discussion with the patient and/or guardian regarding: the historical points, exam findings, and any diagnostic results supporting the discharge/admit diagnosis, the need for outpatient follow up, for definitive care, to return to the emergency department if symptoms worsen or persist or if there are any questions or concerns that arise at home. Special discussion: Based on the history and exam findings, there is no indication for further emergent testing or inpatient evaluation. I discussed with the patient/guardian the need to see the primary care provider for further evaluation of the symptoms. 10/23 10:55 Order name: Wound dressing; Complete Time: 11:21 snw 10/23 10:55 Order name: Misc. Order: please remove gamble; Complete Time: 11:21 snw 10/23 11:04 Order name: Gamble; Complete Time: 11:19 snw Administered Medications: No medications were administered Disposition: 13:26 Co-signature as Attending Physician, Bam Rizzo MD I agree with the assessment and kdr plan of care. Disposition: 10/23/18 11:31 Discharged to Home. Impression: Encounter for change or removal of surgical wound dressing, Encounter for removal of sutures. - Condition is Stable. - Discharge Instructions: How to Change Your Dressing, Gamble Catheter Care, Adult, Hypertension, Suture Removal, Care After, Incision Care, Adult. - Medication Reconciliation Form, Thank You Letter, Antibiotic Education, Prescription Opioid Use form. - Follow up: Carlton Owen MD; When: 2 - 3 days; Reason: Recheck today's complaints, Continuance of care, Re-evaluation by your physician. Follow up: Emergency Department; When: As needed; Reason: Worsening of condition. Signatures: Bam Rizzo MD MD [facility] Lily Mckenzie, S[employer]ER-C S[employer] [facility]-[facility] Elaina Camilo, RN RN aa5 Bonita Machado RN RN tw2 Corrections: (The following items were deleted from the chart) 11:42 11:31 10/23/2018 11:31 Discharged to Home. Impression: Encounter for change or removal tw2 of surgical wound dressing; Encounter for removal of sutures. Condition is Stable. Forms are Medication Reconciliation Form, Thank You Letter, Antibiotic Education, Prescription Opioid Use. Follow up: Carlton Owen; When: 2 - 3 days; Reason: Recheck today's complaints, Continuance of care, Re-evaluation by your physician. Follow up: Emergency Department; When: As needed; Reason: Worsening of condition. snw
--- NOTE | 2018-10-23 11:32 | ER ---
Nurse's Notes [facility] Name: Karissa Frias Age: 83 yrs Sex: Female : 1935 Arrival Date: 10/23/2018 Time: 10:26 Bed 16 Private MD: Carlton Owen E Diagnosis: Encounter for change or removal of surgical wound dressing;Encounter for removal of sutures Presentation: 10/23 10:35 Presenting complaint: Pt's daughter reports pt had R BKA on September 22 and needs aa5 pranav removed and gamble d/c'd per doctor in [facility]. 10:35 Transition of care: patient was not received from another setting of care. Onset of aa5 symptoms was October 2018. Care prior to arrival: None. 10:35 Method Of Arrival: Wheelchair aa5 10:35 Acuity: LAURO 4 aa5 11:30 Risk Assessment: Do you want to hurt yourself or someone else? Patient reports no tw2 desire to harm self or others. Initial Sepsis Screen: Does the patient meet any 2 criteria? No. Patient's initial sepsis screen is negative. Does the patient have a suspected source of infection? No. Patient's initial sepsis screen is negative. Triage Assessment: 10:30 General: Appears in no apparent distress. Behavior is calm, cooperative, appropriate tw2 for age. Historical: - Allergies: 10:40 No Known Allergies; tw2 - Home Meds: 10:40 acetaminophen 325 mg Oral tab 2 tabs every 4 hours for Pain [Active]; aspirin 81 mg tw2 Oral TbEC 1 tab once daily [Active]; carvedilol 12.5 mg Oral tab 1 tab 2 times per day [Active]; digoxin 125 mcg Oral tab 1 tab once daily [Active]; furosemide 40 mg Oral tab 1 tab 2 times per day [Active]; melatonin 3 mg Oral tab nightly [Active]; hydralazine 25 mg Oral tab [Active]; metformin 500 mg Oral tab 1 tab 2 times per day [Active]; mupirocin 2 % Topical oint twice a day [Active]; Nephro-Josh 0.8 mg Oral tab [Active]; nifedipine 90 mg Oral TbER 1 tab once daily [Active]; Plavix 75 mg Oral tab 1 tab once daily [Active]; - PMHx: 10:40 Atrial Fib; DYSPHAGIA; Anemia; CAD; Diabetes - NIDDM; CHF; High Cholesterol; tw2 Hypertension; osteomyelitis; Renal Disease; - PSHx: 10:40 pacer/defib; PEG tube; triple bypass; tw2 - Immunization history:: Adult Immunizations. - Ebola Screening: : No symptoms or risks identified at this time. - Social history:: Smoking status: . Screenin:30 Abuse screen: Denies threats or abuse. Nutritional screening: On. Tuberculosis tw2 screening: No symptoms or risk factors identified. Fall Risk None identified. Assessment: 10:30 General: Appears in no apparent distress. Behavior is calm, cooperative, appropriate tw2 for age. Pain: Denies pain. Neuro: Level of Consciousness is awake, alert, obeys commands, Oriented to person, place, time, situation. Cardiovascular: Capillary refill < 3 seconds Patient's skin is warm and dry. Respiratory: Airway is patent Respiratory effort is even, unlabored, Respiratory pattern is regular, symmetrical. GI: No signs and/or symptoms were reported involving the gastrointestinal system. : Parent/caregiver report the patient having "old gamble needs to be removed and a new one put in". EENT: No signs and/or symptoms were reported regarding the EENT system. Derm: No signs and/or symptoms reported regarding the dermatologic system. Musculoskeletal: Amputation of right BKA. 11:30 Reassessment: Patient appears in no apparent distress at this time. No changes from tw2 previously documented assessment. Patient and/or family updated on plan of care and expected duration. Pain level reassessed. Patient is alert, oriented x 3, equal unlabored respirations, skin warm/dry/pink. Vital Signs: 10:57 BP 151 / 81; Pulse 78; Resp 18; Temp 97.9(A); Pulse Ox 100% on R/A; Pain 0/10; tw2 11:30 BP 137 / 79; Pulse 82; Resp 17; Pulse Ox 98% on R/A; tw2 ED Course: 10:26 Patient arrived in ED. mr 10:27 Carlton Owen MD is Private Physician. mr 10:33 Lily Mckenzie FNP-C [facility]. snw 10:34 Bam Rizzo MD is Attending Physician. snw 10:35 Patient placed in an exam room, on a stretcher. aa5 10:37 Machado, Bonita, RN is Primary Nurse. tw2 10:37 Arm band placed on. tw2 10:37 Bed in low position. Call light in reach. Adult w/ patient. full service supervisor on. Pulse tw2 ox on. NIBP on. Warm blanket given. 10:40 Triage completed. aa5 11:19 Gamble cath inserted, using sterile technique, 18 Fr., by ky, balloon inflated, to tw2 gravity drainage, Patient tolerated well. Gamble cath removed intact, balloon deflated, from previous gamble removed. 11:20 Patient did not have IV access during this emergency room visit. Dressings: Emma x 1 tw2 bka. 11:22 Carlton Owen MD is Referral Physician. snw 11:42 No provider procedures requiring assistance completed. tw2 Administered Medications: No medications were administered Outcome: 11:31 Discharge ordered by . snw 11:42 Patient left the ED. tw2 11:42 Discharged to home via wheelchair, with family. tw2 11:42 Condition: stable 11:42 Discharge instructions given to patient, family, Instructed on discharge instructions, follow up and referral plans. wound care, gamble care Demonstrated understanding of instructions, follow-up care, wound care, gamble care Signatures: Lily Mckenzie, [facility] TonElaina RN RN aa5 Bonita Machado, RN RN tw2
== END 2018-10-23 11:42 | disposition home or self-care (01) ==
LOC: ER 10:23
DX: Z48.02 Encounter for removal of sutures (principal); Z48.01 Encounter for change or removal of surgical wound dressing; Z46.6 Encounter for fitting and adjustment of urinary device; I48.91 Unspecified atrial fibrillation; D64.9 Anemia, unspecified; I25.10 Atherosclerotic heart disease of native coronary artery without angina pectoris; I11.0 Hypertensive heart disease with heart failure; I50.9 Heart failure, unspecified; E11.9 Type 2 diabetes mellitus without complications; E78.00 Pure hypercholesterolemia, unspecified; Z79.84 Long term (current) use of oral hypoglycemic drugs; Z79.82 Long term (current) use of aspirin
CPT/HCPCS: 51702; 99284

== ENCOUNTER 2018-11-25 11:38 | Observation (INO) | payer OTHER ==
--- OUTSIDE RECORDS SUMMARY | 2018-11-25 11:42 | XMS REPORT | Clinical Summary ---
:1935 Author Organization [facility] Address [address] [place] [address] Care Team Providers Name Role Phone Ester [...] mouth 3 (three) tablet times a day. megestrol (MEGACE) Take 800 [...] (two) times a day for 14 days. ferrous sulfate Take 1 tablet 60 tablet 0 10/03/2018 325 (65 FE) MG (325 mg total) by 9 tablet mouth 2 (two) times a day with meals for 30 days. multivitamin Take 1 tablet by 30 tablet 0 10/04/2018 (THERAGRAN) tablet mouth daily for 9 30 days. pantoprazole Take 1 tablet (40 30 tablet 0 10/04/2018 (PROTONIX) 40 MG mg total) by 9 EC tablet mouth daily for 30 days. thiamine Take 1 tablet 30 tablet 0 10/04/2018 mononitrate, vit (100 mg total) by 9 B1, (B-1) 100 mg mouth daily for tablet 30 days. 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 - Hospital Encounter General Internal Pau, 10/03/2018 Medicine MD Natan Anderson, Ester Arevalo MD after 11/24/2017 Immunizations Name Dates Previously Given Next Due [...] Taken Blood Pressure 145/68 10/03/2018 11:04 [facility] Pulse 75 10/03/2018 11:04 [facility] Temperature 35.9 C (96.6 F) 10/03/2018 11:04 AM [facility] Respiratory Rate 18 10/03/2018 11:04 AM [facility] Oxygen Saturation 100% 10/03/2018 11:04 AM [facility] Inhaled Oxygen Concentration - - Weight 49.1 kg (108 lb 3.2 oz) 10/03/2018 5:00 AM [facility] Height 175.3 cm (5' 9") 09/23/2018 9:00 AM [facility] Body Mass Index 15.98 10/03/2018 5:00 AM [facility] Plan of Treatment Health Maintenance Due Date Last Done Comments SHINGLES VACCINES (#1) 1987 PNEUMOCOCCAL POLYSACCHARIDE VACCINE AGE 65 AND OVER 2002 INFLUENZA VACCINE 03/05/2019 10/03/2018 65+ PNEUMOCOCCAL VACCINE (2 of 2 - PPSV23) 10/04/2019 10/03/2018 Procedures Procedure Name Priority Date/Time Associated Comments Diagnosis ECHOCARDIOGRAM 2D Routine 11/18/2018 COMPLETE W MMODE SPECTRAL COLOR DOPPLER (10454) POC GLUCOSE Routine 10/03/2018 11:17 Results for this [facility] procedure are in the results section. POC GLUCOSE Routine 10/03/2018 8:04 Results for this [facility] procedure are in the results section. ESTIMATED GFR Routine 10/03/2018 5:00 Results for this [facility] procedure are in the results section. BASIC METABOLIC PANEL Routine 10/03/2018 5:00 Results for this [facility] procedure are in the results section. ESTIMATED GFR Routine 10/02/2018 10:06 Results for this PM [facility] procedure are in the results section. BASIC METABOLIC PANEL Routine 10/02/2018 10:06 Results for this [facility] procedure are in the results section. HC COMPLETE BLD COUNT Routine 10/02/2018 10:06 Results for this W/AUTO DIFF [facility] procedure are in the results section. POC GLUCOSE Routine 10/02/2018 9:10 Results for this [facility] procedure are in the results section. POC GLUCOSE Routine 10/02/2018 3:50 Results for this [facility] procedure are in the results section. POC GLUCOSE Routine 10/02/2018 11:19 Results for this [facility] procedure are in the results section. ARTERIAL BLOOD GAS Routine 10/02/2018 7:33 Results for this [facility] procedure are in the results section. POC GLUCOSE Routine 10/02/2018 7:19 Results for this [facility] procedure are in the results section. ESTIMATED GFR Routine 10/02/2018 5:20 Results for this [facility] procedure are in the results section. BASIC METABOLIC PANEL Routine 10/02/2018 5:20 Results for this [facility] procedure are in the results section. HC COMPLETE BLD COUNT Routine 10/02/2018 5:20 Results for this W/AUTO DIFF [facility] procedure are in the results section. POC GLUCOSE Routine 10/01/2018 9:01 Results for this [facility] procedure are in the results section. POC GLUCOSE Routine 10/01/2018 4:28 Results for this [facility] procedure are in the results section. TRANSFUSE RED BLOOD Routine 10/01/2018 2:48 CELLS [facility] POC GLUCOSE Routine 10/01/2018 11:22 Results for this [facility] procedure are in the results section. PREPARE RBC Routine 10/01/2018 7:41 Results for this [facility] procedure are in the results section. TYPE AND SCREEN Routine 10/01/2018 7:41 Results for this [facility] procedure are in the results section. POC GLUCOSE Routine 10/01/2018 7:21 Results for this [facility] procedure are in the results section. BASIC METABOLIC PANEL Routine 10/01/2018 6:15 Results for this [facility] procedure are in the results section. ESTIMATED GFR Routine 10/01/2018 6:15 Results for this [facility] procedure are in the results section. MAGNESIUM LEVEL Routine 10/01/2018 6:15 Results for this [facility] procedure are in the results section. HC COMPLETE BLD COUNT Routine 10/01/2018 6:15 Results for this W/AUTO DIFF [facility] procedure are in the results section. POC GLUCOSE Routine 09/30/2018 9:35 Results for this [facility] procedure are in the results section. POC GLUCOSE Routine 09/30/2018 4:28 Results for this [facility] procedure are in the results section. POC GLUCOSE Routine 09/30/2018 11:16 Results for this [facility] procedure are in the results section. POC GLUCOSE Routine 09/30/2018 7:43 Results for this [facility] procedure are in the results section. POC GLUCOSE Routine 09/29/2018 9:01 Results for this [facility] procedure are in the results section. POC GLUCOSE Routine 09/29/2018 4:36 Results for this [facility] procedure are in the results section. POC GLUCOSE Routine 09/29/2018 11:24 Results for this [facility] procedure are in the results section. POC GLUCOSE Routine 09/29/2018 7:34 Results for this [facility] procedure are in the results section. ESTIMATED GFR Routine 09/29/2018 6:15 Results for this [facility] procedure are in the results section. BASIC METABOLIC PANEL Routine 09/29/2018 6:15 Results for this [facility] procedure are in the results section. POC GLUCOSE Routine 09/28/2018 9:00 Results for this [facility] procedure are in the results section. POC GLUCOSE Routine 09/28/2018 4:33 Results for this [facility] procedure are in the results section. POC GLUCOSE Routine 09/28/2018 11:33 Results for this [facility] procedure are in the results section. ESTIMATED GFR Routine 09/28/2018 8:20 Results for this [facility] procedure are in the results section. COMPREHENSIVE METABOLIC Routine 09/28/2018 8:20 Results for this PANEL [facility] procedure are in the results section. POC GLUCOSE Routine 09/28/2018 7:49 Results for this [facility] procedure are in the results section. POC GLUCOSE Routine 09/27/2018 9:21 Results for this [facility] procedure are in the results section. POC GLUCOSE Routine 09/27/2018 4:28 Results for this [facility] procedure are in the results section. POC GLUCOSE Routine 09/27/2018 11:38 Results for this [facility] procedure are in the results section. POC GLUCOSE Routine 09/27/2018 8:20 Results for this [facility] procedure are in the results section. POC GLUCOSE Routine 09/27/2018 7:43 Results for this [facility] procedure are in the results section. POC GLUCOSE Routine 09/27/2018 7:41 Results for this [facility] procedure are in the results section. ESTIMATED GFR Routine 09/27/2018 6:25 Results for this [facility] procedure are in the results section. BASIC METABOLIC PANEL Routine 09/27/2018 6:25 Results for this [facility] procedure are in the results section. HC COMPLETE BLD COUNT Routine 09/27/2018 6:25 Results for this W/AUTO DIFF [facility] procedure are in the results section. POC GLUCOSE Routine 09/26/2018 8:57 Results for this [facility] procedure are in the results section. POC GLUCOSE Routine 09/26/2018 5:38 Results for this [facility] procedure are in the results section. POC GLUCOSE Routine 09/26/2018 11:27 Results for this [facility] procedure are in the results section. POC GLUCOSE Routine 09/26/2018 7:56 Results for this [facility] procedure are in the results section. ESTIMATED GFR Routine 09/25/2018 11:10 Results for this [facility] procedure are in the results section. COMPREHENSIVE METABOLIC Routine 09/25/2018 11:10 Results for this PANEL [facility] procedure are in the results section. HC COMPLETE BLD COUNT Routine 09/25/2018 11:10 Results for this W/AUTO DIFF [facility] procedure are in the results section. POC GLUCOSE Routine 09/25/2018 8:38 Results for this [facility] procedure are in the results section. POC GLUCOSE Routine 09/25/2018 5:04 Results for this [facility] procedure are in the results section. POC GLUCOSE Routine 09/25/2018 10:55 Results for this [facility] procedure are in the results section. POC GLUCOSE Routine 09/25/2018 8:03 Results for this [facility] procedure are in the results section. ECG 12-LEAD Routine 09/25/2018 6:07 Results for this [facility] procedure are in the results section. POC GLUCOSE Routine 09/24/2018 9:41 Results for this [facility] procedure are in the results section. POC GLUCOSE Routine 09/24/2018 4:20 Results for this [facility] procedure are in the results section. POC GLUCOSE Routine 09/24/2018 12:02 Results for this [facility] procedure are in the results section. POC GLUCOSE Routine 09/24/2018 7:31 Results for this [facility] procedure are in the results section. ESTIMATED GFR Routine 09/24/2018 4:00 Results for this [facility] procedure are in the results section. HC COMPLETE BLD COUNT Routine 09/24/2018 4:00 Results for this W/AUTO DIFF [facility] procedure are in the results section. BASIC METABOLIC PANEL Routine 09/24/2018 4:00 Results for this [facility] procedure are in the results section. PARTIAL THROMBOPLASTIN Routine 09/24/2018 4:00 Results for this TIME (PTT) [facility] procedure are in the results section. PROTHROMBIN TIME WITH Routine 09/24/2018 4:00 Results for this INR [facility] procedure are in the results section. POC GLUCOSE Routine 09/23/2018 4:48 Results for this [facility] procedure are in the results section. POC GLUCOSE Routine 09/23/2018 11:15 Results for this [facility] procedure are in the results section. POC GLUCOSE Routine 09/23/2018 8:59 Results for this [facility] procedure are in the results section. POC GLUCOSE Routine 09/23/2018 6:29 Results for this [facility] procedure are in the results section. POC GLUCOSE Routine 09/23/2018 4:18 Results for this [facility] procedure are in the results section. XR CHEST 1 VW PORTABLE Routine 09/23/2018 3:58 Results for this [facility] procedure are in the results section. ESTIMATED GFR Routine 09/23/2018 3:15 Results for this [facility] procedure are in the results section. PARTIAL THROMBOPLASTIN Routine 09/23/2018 3:15 Results for this TIME (PTT) [facility] procedure are in the results section. PROTHROMBIN TIME WITH Routine 09/23/2018 3:15 Results for this INR [facility] procedure are in the results section. PHOSPHORUS LEVEL Routine 09/23/2018 3:15 Results for this [facility] procedure are in the results section. MAGNESIUM LEVEL Routine 09/23/2018 3:15 Results for this [facility] procedure are in the results section. IONIZED CALCIUM Routine 09/23/2018 3:15 Results for this [facility] procedure are in the results section. HC COMPLETE BLD COUNT Routine 09/23/2018 3:15 Results for this W/AUTO DIFF [facility] procedure are in the results section. BASIC METABOLIC PANEL Routine 09/23/2018 3:15 Results for this [facility] procedure are in the results section. POC GLUCOSE Routine 09/23/2018 2:06 Results for this [facility] procedure are in the results section. POC GLUCOSE Routine 09/23/2018 12:46 Results for this [facility] procedure are in the results section. POC GLUCOSE Routine 09/22/2018 10:28 Results for this [facility] procedure are in the results section. VANCOMYCIN LEVEL, Timed 09/22/2018 10:20 Results for this TROUGH [facility] procedure are in the results section. POC GLUCOSE Routine 09/22/2018 7:57 Results for this [facility] procedure are in the results section. POC GLUCOSE Routine 09/22/2018 5:04 Results for this [facility] procedure are in the results section. HC COMPLETE BLD COUNT Routine 09/22/2018 3:55 Results for this W/AUTO DIFF [facility] procedure are in the results section. POC GLUCOSE Routine 09/22/2018 2:41 Results for this [facility] procedure are in the results section. SURGICAL PATHOLOGY Routine 09/22/2018 2:34 Results for this REQUEST [facility] procedure are in the results section. NM AN ELECTIVE Routine 09/22/2018 1:05 SUPRAGLOTTIC AIRWAY [facility] Procedure Note - Dre Gil CRNA - 09/22/2018 1:05 PM [facility] Airway Date/Time: 09/22/2018 12:49 PM Performed by: Dre Gil CRNA Authorized by: Jerad Jacques MD Location: OR Urgency: Elective Difficult Airway: No Anesthesiologist: Wilmer Anaya MD Resident/DISK SHARPENER/AA: Dre Gil CRNA Performed by: anesthesiologist and resident/DISK SHARPENER/AA Preoxygenated with 100% O2: Yes C-spine Precautions Maintained Throughout: Yes Mask Ventilation: Easy mask Final Airway Type: Supraglottic airway Final LMA: Classic LMA Size: 3 Number of Attempts at Approach: 1 ECHOCARDIOGRAM 2D COMPLETE W Routine 09/22/2018 12:40 [facility] Results for this MMODE SPECTRAL COLOR DOPPLER procedure are in the (16772) results section. POC GLUCOSE Routine 09/22/2018 12:13 [facility] POC GLUCOSE Routine 09/22/2018 11:59 [facility] POC GLUCOSE Routine 09/22/2018 9:56 [facility] XR CHEST 1 VW PORTABLE Routine 09/22/2018 8:59 AM [facility] PROTHROMBIN TIME WITH INR STAT 09/22/2018 8:25 [facility] POC GLUCOSE Routine 09/22/2018 8:06 AM [facility] POC GLUCOSE Routine 09/22/2018 6:02 AM [facility] POC GLUCOSE Routine 09/22/2018 4:22 AM [facility] ESTIMATED GFR Routine 09/22/2018 3:30 AM [facility] MAGNESIUM LEVEL Routine 09/22/2018 3:30 AM [facility] IONIZED CALCIUM Routine 09/22/2018 3:30 [facility] BASIC METABOLIC PANEL Routine 09/22/2018 3:30 [facility] HC COMPLETE BLD COUNT W/AUTO Routine 09/22/2018 3:30 [facility] Results for this DIFF procedure are in the results section. POC GLUCOSE Routine 09/22/2018 2:51 [facility] POC GLUCOSE Routine 09/22/2018 1:13 [facility] POC GLUCOSE Routine 09/21/2018 11:09 PM [facility] POC GLUCOSE Routine 09/21/2018 8:47 PM [facility] US RENAL Routine 09/21/2018 7:35 PM [facility] POC GLUCOSE Routine 09/21/2018 6:50 PM [facility] POC GLUCOSE Routine 09/21/2018 5:08 PM [facility] LACTIC ACID LEVEL Routine 09/21/2018 5:00 [facility] OCCULT BLOOD, STOOL Routine 09/21/2018 4:08 [facility] POC GLUCOSE Routine 09/21/2018 4:03 PM [facility] TRANSFUSE RED BLOOD CELLS Routine 09/21/2018 3:31 PM [facility] POC GLUCOSE Routine 09/21/2018 2:55 PM [facility] POC GLUCOSE Routine 09/21/2018 1:29 PM [facility] CONSULT TO OSTOMY CARE NURSE Routine 09/21/2018 1:12 PM [facility] POC GLUCOSE Routine 09/21/2018 12:24 [facility] US DUPLEX ARTERIAL LOWER STAT 09/21/2018 11:35 [facility] Results for this EXTREMITY RIGHT procedure are in the results section. POC GLUCOSE Routine 09/21/2018 11:25 [facility] POC GLUCOSE Routine 09/21/2018 10:50 [facility] TROPONIN Routine 09/21/2018 10:50 [facility] HEPATIC FUNCTION PANEL Routine 09/21/2018 10:50 [facility] HC COMPLETE BLD COUNT W/AUTO Routine 09/21/2018 10:50 [facility] Results for this DIFF procedure are in the results section. LACTIC ACID LEVEL Routine 09/21/2018 10:50 [facility] ESTIMATED GFR Routine 09/21/2018 10:28 [facility] BASIC METABOLIC PANEL Routine 09/21/2018 10:28 AM [facility] POC GLUCOSE Routine 09/21/2018 9:51 AM [facility] POC GLUCOSE Routine 09/21/2018 9:07 [facility] TRANSFUSE RED BLOOD CELLS Routine 09/21/2018 9:06 [facility] CHLORIDE LEVEL, URINE, Routine 09/21/2018 8:44 [facility] Results for this RANDOM procedure are in the results section. POTASSIUM, URINE, RANDOM Routine 09/21/2018 8:44 [facility] OSMOLALITY, URINE Routine 09/21/2018 8:44 [facility] PROTEIN, URINE, RANDOM Routine 09/21/2018 8:44 AM [facility] SODIUM LEVEL, URINE, RANDOM Routine 09/21/2018 8:44 AM [facility] CREATININE LEVEL, URINE, Routine 09/21/2018 8:44 [facility] Results for this RANDOM procedure are in the results section. POC GLUCOSE Routine 09/21/2018 8:07 AM [facility] POC GLUCOSE Routine 09/21/2018 7:41 [facility] CONSULT TO OSTOMY CARE NURSE Routine 09/21/2018 7:18 AM [facility] LACTIC ACID LEVEL, SEPSIS - Timed 09/21/2018 7:00 [facility] Results for this NOW AND REPEAT 2X EVERY 3 procedure are in the HOURS results section. POC GLUCOSE Routine 09/21/2018 6:43 [facility] POC GLUCOSE Routine 09/21/2018 5:21 [facility] POC GLUCOSE Routine 09/21/2018 4:32 [facility] GRAM STAIN Routine 09/21/2018 4:20 AM [facility] ANAEROBIC CULTURE Routine 09/21/2018 4:20 AM [facility] AEROBIC CULTURE Routine 09/21/2018 4:20 AM [facility] ECG 12-LEAD STAT 09/21/2018 4:10 AM [facility] POC GLUCOSE Routine 09/21/2018 4:06 AM [facility] IONIZED CALCIUM Routine 09/21/2018 4:00 AM [facility] PARTIAL THROMBOPLASTIN TIME Routine 09/21/2018 4:00 [facility] Results for this (PTT) procedure are in the results section. LACTIC ACID LEVEL Routine 09/21/2018 4:00 AM [facility] MAGNESIUM LEVEL Routine 09/21/2018 4:00 AM [facility] PHOSPHORUS LEVEL Routine 09/21/2018 4:00 AM [facility] ESTIMATED GFR Routine 09/21/2018 4:00 AM [facility] BASIC METABOLIC PANEL Routine 09/21/2018 4:00 [facility] PROTHROMBIN TIME WITH INR Routine 09/21/2018 4:00 [facility] HC COMPLETE BLD COUNT W/AUTO Routine 09/21/2018 4:00 [facility] Results for this DIFF procedure are in the results section. POC GLUCOSE Routine 09/21/2018 3:48 AM [facility] PREPARE RBC Routine 09/20/2018 11:35 PM [facility] PREPARE RBC Routine 09/20/2018 11:35 [facility] TYPE AND SCREEN Routine 09/20/2018 11:35 PM [facility] POC GLUCOSE Routine 09/20/2018 11:22 PM [facility] URINALYSIS, AUTOMATED WITH Routine 09/20/2018 11:16 [facility] Results for this MICROSCOPY procedure are in the results section. BLOOD CULTURE, AEROBIC & Routine 09/20/2018 9:35 PM [facility] Results for this ANAEROBIC procedure are in the results section. XR FOOT 2 VW RIGHT Routine 09/20/2018 9:28 PM [facility] LACTIC ACID LEVEL, SEPSIS - Timed 09/20/2018 9:15 PM [facility] Results for this NOW AND REPEAT 2X EVERY 3 procedure are in the HOURS results section. BLOOD CULTURE, AEROBIC & Routine 09/20/2018 9:15 PM [facility] Results for this ANAEROBIC procedure are in the results section. ESTIMATED GFR Routine 09/20/2018 6:50 PM [facility] PROTHROMBIN TIME WITH INR Routine 09/20/2018 6:50 PM [facility] HC COMPLETE BLD COUNT W/AUTO Routine 09/20/2018 6:50 PM [facility] Results for this DIFF procedure are in the results section. BASIC METABOLIC PANEL Routine 09/20/2018 6:50 PM [facility] POC GLUCOSE Routine 09/20/2018 5:23 PM [facility] TRANSFUSE RED BLOOD CELLS Routine 04/09/2018 5:52 PM CDT TRANSFUSE RED BLOOD CELLS Routine 04/09/2018 5:52 PM CDT after 11/24/2017 Results Echocardiogram complete w contrast and 3D if needed (11/18/2018) Narrative Performed At POC glucose (10/03/2018 11:17 AM [facility])Only the most recent of80 resultswithin the time period is included. POC glucose 201 (H) 65 - 99 mg/dL [facility] Comment: HOSPITAL RN Notified Meter ID: [id number] Refining Machine Operator: Santos Performing Organization Address City/State/Zipcode Phone Number [facility] DEPARTMENT OF PATHOLOGY [address] [place] [address] AND GENOMIC MEDICINE [facility] [address] [place] [address] HOSPITAL Estimated GFR (10/03/2018 5:00 AM MANAGER [facility]ARM[facility]Y)Only the most recent of14 resultswithin the time period is included. Estimated GFR 11 (A) mL/min/1.73 m2 [facility] Comment: [facility] CatergoryUnitsInterpretation G1 >=90 Normal or high G2 60-89Mildly decreased [id number] to moderately decreased [id number] to severely decreased G4 15-29Severely decreased G5 <15Kidney failure The eGFR was calculated using the Chronic Kidney Disease Epidemiology Collaboration (CKD-EPI) equation. Interpretation is based on recommendations of the National Kidney Foundation-Kidney Disease Outcomes Quality Initiative (NKF-KDOQI) published in 2014. Specimen Plasma specimen Performing Organization Address City/[facility]/Zipcode Phone Number [facility] DEPARTMENT OF PATHOLOGY [address] [place] [address] Basic metabolic panel (10/03/2018 5:00 AM MANA[facility]ARM[facility])Only the most recent of12 resultswithin the time period is included. Sodium 136 135 - 148 mEq/L [facility] Potassium 3.8 3.5 - 5.0 mEq/L [facility] Chloride 105 98 - 112 mEq/L [facility] CO2 15 (L) 24 - 31 mEq/L [facility] Anion gap 16@ANIO (H) 7 - 15 mEq/L [facility] BUN 59 (H) 8 - 23 mg/dL [facility] Creatinine 3.66 (H) 0.50 - 0.90 mg/dL [facility] Glucose 123 (H) 65 - 99 mg/dL [facility] Calcium 7.9 (L) 8.8 - 10.2 mg/dL [facility] Specimen Plasma specimen Performing Organization Address [facility] Cent[facility]ode Phone Number [facility] DEPARTMENT OF PATHOLOGY [address] [place] [address] CBC with platelet and differential (10/02/2018 10:06 PM [facility]NAGER [facility]ARM[facility])Only the most recent of12 resultswithin the time period is included. WBC 9.8 4.5 - 11.0 k/uL [facility] RBC 2.85 (L) 4.20 - 5.50 m/uL [facility] HGB 8.1 (L) 12.0 - 16.0 g/dL [facility] HCT 25.8 (L) 37.0 - 47.0 % [facility] MCV 90.5 82.0 - 100.0 fL [facility] MCH 28.4 27.0 - 34.0 pg [facility] MCHC 31.4 31.0 - 37.0 g/dL [facility] RDW - SD 53.8 37.0 - 55.0 fL [facility] MPV 10.3 6.9 - 11.0 fL [facility] Platelet count 265 150 - 400 K/uL [facility] Nucleated RBC 0.00 /100 WBC [facility] Neutrophils 75.1 (H) 39.0 - 69.0 % [facility] Lymphocytes 14.9 (L) 25.0 - 45.0 % [facility] Monocytes 6.7 0.0 - 10.0 % [facility] Eosinophils 2.3 0.0 - 5.0 % [facility] Basophils 0.6 0.0 - 1.0 % [facility] Immature granulocytes 0.4 0.0 - 1.0 % [facility] [facility]ENTER Specimen Blood Performing Organization Address City/State/[facility] Phone Number [facility] DEPARTMENT OF PATHOLOGY [address] [place] [address] AND GENOMIC MEDICINE [facility] [address] [place] [address] HOSPITAL Arterial blood gas (10/02/2018 7:33 AM MANAGER PHARMACY) pH, arterial 7.39 7.35 - 7.45 [facility] pCO2, arterial 25 (L) 35 - 45 mmHg [facility] pO2, arterial 106 (H) 80 - 90 mmHg [facility] Bicarbonate, arterial 14.5 (L) 21.0 - 28.0 mmol/L [facility] Base excess, arterial -9 (L) -2 - 2 mEq/L [facility] O2 saturation, arterial 97 95 - 100 % [facility] Specimen Blood Performing Organization Address City/State/Zipcode Phone Number [facility] DEPARTMENT OF PATHOLOGY [address] [place] [address] [place] [address] HOSPITAL Transfuse RBC (10/01/2018 2:48 PM MANAGER PHARMACY)Only the most recent of8 resultswithin the time period is included.Prepare RBC, 1 Units (10/01/2018 7:41 AM MANAGER PHARMACY)Only the most recent of3 resultswithin the time period is included. Product name Red Blood Cells -1, [facility] Unit number [id number] [facility] Product code [id number] [facility] Dispense status Transfused [facility] Blood expiration date [id number] [facility] Blood type code 8400 [facility] Blood type AB POSITIVE [facility] Specimen Blood Performing Organization Address [facility] Phone Number [facility] DEPARTMENT OF PATHOLOGY [address] [place] [address] [place] [address] HOSPITAL Type and screen (10/01/2018 7:41 AM MANAGER PHARMACY)Only the most recent of2 resultswithin the time period is included. ABO grouping AB [facility] Rh type POS [facility] Antibody screen (gel) NEG [facility] Specimen Blood Performing Organization Address [facility] Phone Number [facility] DEPARTMENT OF PATHOLOGY [address] [place] [address] [place] [address] HOSPITAL Magnesium level (10/01/2018 6:15 AM MANAGER PHARMACY)Only the most recent of4 resultswithin the time period is included. Magnesium 2.0 1.6 - 2.4 mg/dL [facility] Specimen Plasma specimen Performing Organization Address City/[facility]/Zipcode Phone Number [facility] DEPARTMENT OF PATHOLOGY [address] [place] [address] Comprehensive metabolic panel (09/28/2018 8:20 AM MANAGER PHARMACY)Only the most recent of2 resultswithin the time period is included. Sodium 136 135 - 148 mEq/L [facility] Potassium 3.6 3.5 - 5.0 mEq/L [facility] Chloride 106 98 - 112 mEq/L [facility] CO2 16 (L) 24 - 31 mEq/L [facility] Anion gap 14@ANIO 7 - 15 mEq/L [facility] BUN 63 (H) 8 - 23 mg/dL [facility] Creatinine 4.09 (H) 0.50 - 0.90 mg/dL [facility] Glucose 86 65 - 99 mg/dL [facility] Calcium 7.8 (L) 8.8 - 10.2 mg/dL [facility] Protein 5.9 (L) 6.3 - 8.3 g/dL [facility] Albumin 2.2 (L) 3.5 - 5.0 g/dL [facility] A/G ratio 0.6 (L) 0.7 - 3.8 [facility] Alkaline phosphatase 61 35 - 104 U/L [facility] AST 13 10 - 35 U/L [facility] ALT <5 (A) 5 - 50 U/L [facility] Total bilirubin <0.2 0.2 - 1.2 mg/dL [facility] Specimen Plasma specimen Performing Organization Address City/State/Zipcode Phone Number [facility] DEPARTMENT OF PATHOLOGY [address] [place] [address] AND [facility]IC MEDICINE [facility] [address] ECG 12 lead (09/25/2018 6:07 AM MANAGER PHARMACY)Only the most recent of2 resultswithin the time period is included. Ventricular rate 71 [facility] Atrial rate 84 [facility] QRSD interval 156 [facility] QT interval 386 [facility] QTC interval 419 [facility] QRS axis 1 124 [facility] T wave axis 42 [facility] EKG impression Electronic ventricular pacemaker-In automated [facility] MUSE comparison with ECG of 25-SEP-2018 06:05,-Electronic ventricular pacemaker has replaced Atrial fibrillation- Narrative Performed At Performing Organization Address City/[facility]/Zipcode Phone Number [facility] MUSE [address] [place] [address] Partial thromboplastin time, activated (09/24/2018 4:00 AM MANAGER PHARMACY)Only the most recent of3 resultswithin the time period is included. PTT 51.3 (H) 23.0 - 36.0 sec [facility] Comment: [facility] PTT therapeutic range for unfractionated heparin is 61.0-112.0 seconds which corresponds to Anti-Xa 0.3-0.7 U/ml. Specimen Blood Performing Organization Address [facility] Phone Number [facility] DEPARTMENT OF PATHOLOGY [id number] [place] [address] Prothrombin time with INR (09/24/2018 4:00 AM MANAGER PHARMACY)Only the most recent of5 resultswithin the time period is included. Prothrombin time 17.4 (H) 11.5 - 14.5 sec [facility] INR 1.5 [facility] Comment: [facility] The International Normalized Ratio (INR) is a therapeutic monitoring tool for patients who are stable on oral anticoagulant therapy. An INR of 2.0-3.0 is suggested for deep vein thrombosis/pulmonary embolism. Specimen Blood Performing Organization Address [facility] Phone Number [facility] DEPARTMENT OF PATHOLOGY [id number] [place] [address] XR Chest 1 Vw Portable (09/23/2018 3:58 AM MANAGER PHARMACY)Only the most recent of2 resultswithin the time period is included. Narrative Performed At EXAMINATION:XR CHEST 1 VW PORTABLE [facility] CLINICAL HISTORY: 83 years Femalepost-op COMPARISON:09/22/2018 IMPRESSION: 1.A left subclavian biventricular pacemaker/defibrillator is present. 2.The cardiomediastinal silhouette is slightly enlarged. 3.Mild increased interstitial opacities persist. There is minimal retrocardiac volume loss and tiny bilateral pleural effusions. 4.Regional skeletal structures are diffusely osteopenic. [facility]-[id number] Procedure Note Hm Interface, Radiology Results Incoming - 09/23/2018 5:47 AM MANAGER PHARMACY EXAMINATION: XR CHEST 1 VW PORTABLE CLINICAL HISTORY: 83 years Female post-op COMPARISON: 09/22/2018 IMPRESSION: 1. A left subclavian biventricular pacemaker/defibrillator is present. 2. The cardiomediastinal silhouette is slightly enlarged. 3. Mild increased interstitial opacities persist. There is minimal retrocardiac volume loss and tiny bilateral pleural effusions. 4. Regional skeletal structures are diffusely osteopenic. [facility]-[id number] Performing Organization Address City/[facility]/Zipcode Phone Number [facility] [address] [place] [address] Phosphorus level (09/23/2018 3:15 AM MANAGER PHARMACY)Only the most recent of2 resultswithin the time period is included. Phosphorus 4.4 2.4 - 4.5 mg/dL [facility] Specimen Plasma specimen Performing Organization Address [facility] Phone Number [facility] DEPARTMENT OF PATHOLOGY [address] [place] [address] Ionized calcium (09/23/2018 3:15 AM MANAGER PHARMACY)Only the most recent of3 resultswithin the time period is included. pH 7.30 [facility] Ionized calcium 1.13 1.11 - 1.32 mmol/L [facility] Specimen Plasma specimen Performing Organization Address [facility] Phone Number [facility] DEPARTMENT OF PATHOLOGY [address] [place] [address] Vancomycin level, trough (09/22/2018 10:20 PM MANAGER PHARMACY) Vancomycin, trough 7.1 (L) 10.0 - 20.0 ug/mL [facility]: [facility] Therapeutic Ranges: Peak30.0 - 40.0 ug/mL Tckubi51.0 - 20.0 ug/mL Specimen Blood Performing Organization Address [facility] Phone Number [facility] DEPARTMENT OF PATHOLOGY [address] [address] AND GENOMIC MEDICINE [facility] [address] [facility] jerardo [place] [address] HOSPITAL Surgical pathology request (09/22/2018 2:34 PM MANAGER PHARMACY) [facility] DEPARTMENT OF PATHOLOGY AND GENOMIC MEDICINE Surgical pathology report See link below for PDF [facility] DEPARTMENT OF Lab Report PATHOLOGY AND GENOMIC MEDICINE Result status This is Final Report [facility] DEPARTMENT OF for [id number] PATHOLOGY AND GENOMIC MEDICINE Performing Organization Address City/State/Zipcode Phone Number [facility] DEPARTMENT OF PATHOLOGY [address] [address] [place] [address] AND GENOMIC MEDICINE Echocardiogram complete w contrast and 3D if needed (09/22/2018 12:40 PM MANAGER PHARMACY) Ao Root Diameter 3.05 cm HM [facility] [...] - 35%. Normal left ventricular wall thickness. Aoxh-rb-cgefdtds aortic regurgitation. Mild mitral valve regurgitation. RVSP is 42-47 mm Hg with estimated RAP of 10-15 mm Hg. Performing Organization Address City/State/[facility] Phone Number [facility] [address] [place] [address] Renal (09/21/2018 7:35 PM MANAGER PHARMACY) Narrative Performed At EXAMINATION:US RENAL [facility] CLINICAL HISTORY:Renal failurechronic (kidney disease) [...] decompressed with Zarco catheter in the lumen. [facility]-[id number] Procedure Note Hm Interface, Radiology Results Incoming - 09/22/2018 12:32 AM MANAGER PHARMACY EXAMINATION: US RENAL CLINICAL HISTORY: Renal failure [...] decompressed with Zarco catheter in the lumen. [facility]-[id number] Performing Organization Address City/[facility]/Zipcode Phone Number [facility] [address] [place] [address] Lactic acid level (09/21/2018 5:00 PM MANAGER PHARMACY)Only the most recent of3 resultswithin the time period is included. Lactic acid 1.0 0.5 - 2.2 mmol/L [facility] Specimen Plasma specimen Performing Organization Address City/[facility]/Zipcode Phone Number [facility] DEPARTMENT OF PATHOLOGY [id number] [place] [address] Occult blood, stool (09/21/2018 4:08 PM MANAGER PHARMACY) Occult blood, stool Negative for occult blood. [facility] Comment: [facility] Specimen Information Specimen Source: Stool Specimen Site: Nonpreserved Specimen Stool - Nonpreserved Performing Organization Address [facility] Phone Number [facility] DEPARTMENT OF PATHOLOGY [id number] [place] [address] AND [facility] [id number] [place] [address] Us duplex arterial lower extremity (09/21/2018 11:35 AM MANAGER PHARMACY) Narrative Performed At EXAM: US DUPLEX ARTERIAL [...] Mid: Monophasic Distal: Monophasic DORSALIS PEDIS: Monophasic [id number] Procedure Note Hm Interface, Radiology Results Incoming - 09/21/2018 11:43 AM MANAGER PHARMACY EXAM: US DUPLEX ARTERIAL LOWER EXTREMITY RIGHT [...] Mid: Monophasic Distal: Monophasic DORSALIS PEDIS: Monophasic [id number] Performing Organization Address [facility]/Zipcode Phone Number [facility] [address] [place] [address] Troponin (09/21/2018 10:50 AM MANAGER PHARMACY) Troponin <0.30 0.00 - 0.30 ng/mL [facility] Comment: HOSPITAL 0.11 - 1.49 ng/mlMay indicate increased risk of acute coronary syndrome. >=1.5 ng/mlConsistent with acute myocardial infarction. The diagnostic value of a single normal or non-diagnostic result is questionable.Serial samples at 2-6 hour intervals are required to rule out acute myocardial injury. Specimen Plasma specimen Performing Organization Address City/[facility]/Zipcode Phone Number [facility] DEPARTMENT OF PATHOLOGY [address] [place] [address] AND GENOMIC MEDICINE [facility] [address] Hepatic function panel (09/21/2018 10:50 AM MANAGER PHARMACY) Albumin 2.5 (L) 3.5 - 5.0 g/dL [facility] Total bilirubin <0.2 0.2 - 1.2 mg/dL [facility] Bilirubin direct <0.2 0.0 - 0.3 mg/dL [facility] Alkaline phosphatase 75 35 - 104 U/L [facility] Protein 7.1 6.3 - 8.3 g/dL [facility] ALT <5 (A) 5 - 50 U/L [facility] AST 12 10 - 35 U/L [facility] Specimen Plasma specimen Performing Organization Address City/[facility] Phone Number [facility] DEPARTMENT OF PATHOLOGY [id number] [place] [address] AND [facility] MEDICINE [address] Sodium level, urine, random (09/21/2018 8:44 AM MANAGER PHARMACY) Total volume, urine 40 mL [facility] Urine sodium concentration 64 mEq/L [facility] Urine sodium excretion 3Comment: Varies with [facility] Specimen Urine Performing Organization Address City/[facility] Phone Number [facility] DEPARTMENT OF PATHOLOGY [address] [place] [address] Protein, urine, random (09/21/2018 8:44 AM MANAGER PHARMACY) Total volume, urine 40 mL [facility] Urine protein concentration 11 mg/dL [facility] Urine protein excretion 4 mg/vol [facility] Specimen Urine Performing Organization Address City/[facility] Phone Number [facility] DEPARTMENT OF PATHOLOGY [address] [place] [address] Potassium, urine, random (09/21/2018 8:44 AM MANAGER PHARMACY) Total volume, urine 40 mL [facility] Urine potassium concentration 13.1 mEq/L [facility] Urine potassium excretion 0.5Comment: Varies [facility] with [facility] Specimen Urine Performing Organization Address City/State/[facility] Phone Number [facility] DEPARTMENT OF PATHOLOGY [address] [place] [address] [place] [address] HOSPITAL Osmolality, urine (09/21/2018 8:44 AM MANAGER PHARMACY) Osmolality, urine 332 50 - 1,400 mOsm/kg [facility] Specimen Urine Performing Organization Address City/[facility] Phone Number [facility] DEPARTMENT OF PATHOLOGY [address] [place] [address] Creatinine level, urine, random (09/21/2018 8:44 AM MANAGER PHARMACY) Total volume, urine 40 mL [facility] Urine creatinine concentration 35 mg/dL [facility] Urine creatinine excretion 14 mg/vol [facility] Specimen Urine Performing Organization Address [facility] Phone Number [facility] DEPARTMENT OF PATHOLOGY [address] [place] [address] Chloride level, urine, random (09/21/2018 8:44 AM MANAGER PHARMACY) Total volume, urine 40 mL [facility] Urine chloride concentration 49 mEq/L [facility] Urine chloride excretion 2Comment: Varies with [facility] Specimen Urine Performing Organization Address [facility] Phone Number [facility] DEPARTMENT OF PATHOLOGY [address] [place] [address] Lactic acid level, SEPSIS - Now and repeat 2x every 3 hours (09/21/2018 7:00 AM MANAGER PHARMACY)Only the most recent of2 resultswithin the time period is included. Lactic acid 1.9 0.5 - 2.2 mmol/L [facility] Specimen Plasma specimen Performing Organization Address City/[facility]/Zipcode Phone Number [facility] DEPARTMENT OF PATHOLOGY [address] [place] [address] [place] [address] [facility] Aerobic culture (09/21/2018 4:20 AM MANAGER PHARMACY) Aerobic culture isolate Diphtheroids [facility] (A) Comment: Specimen Information Specimen Source: Wound Specimen Site: right foot Aerobic culture isolate Enterococcus faecalis [facility] The performance characteristics of this assay on this isolate were validated by the Microbiology Laboratory at [facility].This source has not been approved by [...] were validated by the Microbiology Laboratory at [facility].This source has not been approved by [...] PEDRO >8 mcg/mL: Resistant Enterococcus faecalis Vancomycin PEDRO 1 mcg/mL: Susceptible Performing Organization Address City/[facility] Phone Number [facility] DEPARTMENT OF PATHOLOGY AND [address] [place] [address] Gram stain (09/21/2018 4:20 AM MANAGER PHARMACY) Gram stain isolate Rare WBC's [facility] Occasional Gram positive cocci in pairs Occasional Gram positive rods Comment: Specimen Information Specimen Source: Wound Specimen Site: right foot Specimen Wound Performing Organization Address City/[facility] Phone Number [facility] DEPARTMENT OF PATHOLOGY AND [address] [place] [address] [address] Anaerobic culture (09/21/2018 4:20 AM MANAGER PHARMACY) Anaerobic culture Diphtheroids [facility] The performance characteristics of this assay on this isolate HOSPITAL were validated by the Microbiology Laboratory at [facility].This source has not been approved by [...] left foot Specimen Wound Performing Organization Address [facility] Phone Number [facility] DEPARTMENT OF PATHOLOGY AND [address] [place] [address] GENOMIC MEDICINE [facility] [address] [place] [address] Urinalysis, automated with microscopy (09/20/2018 11:16 PM MANAGER PHARMACY) Color, UA Yellow [facility] Appearance, UA Sl Cloudy [facility] Specific gravity, UA 1.010 1.001 - 1.030 [facility] pH, UA 5.0 5.0 - 9.0 [facility] Protein, UA Negative Negative [facility] Glucose, UA Negative Negative [facility] Ketones, UA Negative Negative [facility] Bilirubin, UA Negative Negative [facility] Blood, UA Negative Negative [facility] Nitrite, UA Negative Negative [facility] Urobilinogen, UA <2.0 <2.0 E.U./dL [facility] Leukocyte esterase, UA Large (A) Negative [facility] Epithelial cells, UA 3 /HPF [facility] Round epithelial cells, UA <1 0 - 5 /HPF [facility] WBC, UA 79 (H) 0 - 4 /HPF [facility] RBC, UA None seen 0 - 5 /HPF [facility] Bacteria, UA Few None seen [facility] Calcium oxalate crystals, UA Few [facility] WBC clumps, UA Few (A) [facility] Yeast, UA None seen [facility] Yeast with pseudohyphae, UA None seen [facility] Specimen Urine Performing Organization Address City/[facility]/Zipcode Phone Number [facility] DEPARTMENT OF PATHOLOGY [address] [facility] [place] [address] AND [facility] [address] [facility] [place] [address] HOSPITAL Blood culture, aerobic & anaerobic (09/20/2018 9:35 PM MANAGER PHARMACY)Only the most recent of2 resultswithin the time period is included. Blood culture isolate No growth after 5 days of incubation. [facility] Comment: HOSPITAL Specimen Information Specimen Source: Blood Specimen Site: Forearm, left Specimen Blood - Forearm, left Performing Organization Address City/State/Zipcode Phone Number [facility] DEPARTMENT OF PATHOLOGY AND [address] [place] [address] [facility] [address] [place] [address] XR Foot 2 Vw Right (09/20/2018 9:28 PM MANAGER PHARMACY) Narrative Performed At EXAMINATION:XR FOOT 2 VW [...] radiopaque foreign body or soft tissue gas. [facility]-[id number] Procedure Note Interface, Radiology Results Incoming - 09/20/2018 10:00 PM MANAGER PHARMACY EXAMINATION: XR FOOT 2 VW RIGHT CLINICAL [...] radiopaque foreign body or soft tissue gas. [facility]-[id number] Performing Organization Address City/State/Zipcode Phone Number [facility] [address] [place] [address] after 11/24/2017 Insurance Payer Benefit Plan / Group Subscriber ID Type Phone Address MEDICAID MEDICAID xxxxxxxxx Medicaid MEDICARE MEDICARE PART A AND B xxxxxxxxxxx Medicare [place], [place] Advance Directives Patient has advance care planning documents on file. For more information, please contact:Chris Garrido[address] [place] [address]
--- OUTSIDE RECORDS SUMMARY | 2018-11-25 11:43 | XMS REPORT ---
:1935 [facility] Address [address] [place] [address] [address]. Flores [address] [place] [address] Care Team Providers Name Role Phone HARDIK [...] Department ID 2017-09-10 2017-09-10 Outpatient Telma [facility] [id number] 18:56:00 18:56:00 HARDIK 2017-07-01 2017-07-04 Inpatient DAWOOD CARVALHO TELE [id number] 22:15:00 15:46:00 BYRON Results Test Description Test Time Test Comments Text Results Atomic Results Result Comments Sed Rate ESR ([place]) 2017-09-10 22:33:00 Test Item Value Reference Range Comments ESR (test code=HESR) 44 mm/Hr 0-20 CBC with [id number] 20:59:00 Test Item Value Reference Range Comments [...] Lymph Abs (test code=ALYMPH) 1.6 K/cumm 0.5-4.6 [place] Abs (test code=AMONO) 0.5 K/cumm 0.0-1.2 Eos Abs (test code=AEOS) 0.10 K/cumm 0.00-0.74 Baso Abs (test code=ABASO) 0.0 K/cumm 0.00-0.21 Hypochromic (test code=HYPO) Slight Lipid [id number] 20:09:00 Test Item Value Reference Range Comments Cholesterol (test 208 mg/dL 0-200 code=CHOL) Triglycerides (test 178 mg/dL 9-200 code=TRIG) HDL (test code=HDL) 45 mg/dL 50-60 Chol/HDL (test 4.6 Ratio 0.0-4.4 code=CHOLPHDL) LDL, Calculated (test 127 mg/dL 0-130 (NOTE)RISK OF HEART code=LDLC) DISEASEPublished by Haitian Heart AssociationAnalyte Optimal Boderline Increased RiskCHOL <200 200-239 >240TRIG <150 150-199 >200HDL Male: >60 <40HDL Female: >60 <50LDL <100 130-159 >160LDL NEAR OPTIMAL IS 100-129 VLDL (test code=VLDL) 36 mg/dL 5-40 LDL/HDL (test code=LDLPHDL) 3 [id number] 20:09:00 Test Item Value Reference Range Comments Lipase (test code=LIP) 31 U/L 13-60 [id number] 20:09:00 Test Item Value Reference Range Comments Amylase (test code=SHAKIR) 92 U/L 28-100 [id number] 20:09:00 Test Item Value Reference Range Comments NT ProBnp (test code=PBNP) 66853 pg/mL 0-449 Comprehensive Metabolic [id number] 20:09:00 Test Item Value Reference Range Comments [...] race is not provided, and the patient isAfrican-Haitian, multiply by 1.212. If sex is not provided, and thepatient is female, multiply by 0.742. Results for patients <18 years ofage have not been validated by the MDRD study and should be interpretedwith caution.eGFR Result Interpretation:eGFR > or=60 is in the Normal RangeeGFR < 60 may mean kidney diseaseeGFR < 15 may mean kidney failureRanges recommended by the National Kidney Foundation,http://nkdep.nih .gov BLOOD [id number] 23:30:00 Test Item Value Reference Range Comments Culture Observations (test code=COB1) NO GROWTH AFTER 5 DAYS BLOOD [id number] 23:30:00 Test Item Value Reference Range Comments Culture Observations (test code=COB1) NO GROWTH AFTER 5 DAYS WOUND/SKIN/ABS.&GRAMSTAIN [id number] 08:20:00 Test Item Value Reference Range Comments [...] (test code=lev) ug/mL GLUCOMETER GLUCOSE- LAB USE [id number] 11:39:00 Test Item Value Reference Range Comments GLUCOMETER (test code=GMG) 113 mg/dL 70-100 DAILY MAINTENANCEMeter ID: [id number]: [id number] JAYY NAVARRO URINE [id number] 11:21:00 Test Item Value Reference Range Comments Isolate 1 (test code=ISO1) Pseudomonas aeruginosa piperacillin/tazobactam (test ug/mL code=tzp) ceftazidime (test code=santos) ug/mL cefepime (test code=fep) ug/mL meropenem (test code=mem) ug/mL gentamicin (test code=gm) ug/mL tobramycin (test code=tob) ug/mL levofloxacin (test code=lev) ug/mL WOUND/SKIN/ABS.&GRAMSTAIN [id number] 10:08:00 Test Item Value Reference Range Comments [...] (test code=lev) ug/mL GLUCOMETER GLUCOSE- LAB USE [id number] 05:13:00 Test Item Value Reference Range Comments GLUCOMETER (test code=GMG) 81 mg/dL 70-100 CLEANED METERMeter ID: [id number]: [id number] LETECIA GOLDMAN PRO TIME AND [id number] 04:39:00 Test Item Value Reference Range Comments [...] Heparin. Order Code is ANTI-XA COMPREHENSIVE METABOLIC [id number] 04:32:00 Test Item Value Reference Range Comments [...] (test code=RBCMOR) NORMAL GLUCOMETER GLUCOSE- LAB USE [id number] 21:05:00 Test Item Value Reference Range Comments GLUCOMETER (test code=GMG) 116 mg/dL 70-100 Meter ID: [id number]: [id number] ROBERT GOLDMAN GLUCOMETER GLUCOSE- LAB USE [id number] 16:42:00 Test Item Value Reference Range Comments GLUCOMETER (test code=GMG) 247 mg/dL 70-100 DAILY MAINTENANCEMeter ID: [id number]: 9086 LinkedInEZ GLUCOMETER GLUCOSE- LAB USE [id number] 13:21:00 Test Item Value Reference Range Comments GLUCOMETER (test code=GMG) 206 mg/dL 70-100 DAILY MAINTENANCEMeter ID: [id number]: 9086 JAYY NAVARRO U/S KIDNEY (RENAL)2017-07-03 12:24:18RENAL ULTRASOUNDLocation Code: [id number] HISTORY: arfCOMPARISON: None.COMMENT: Real-time sonographic images of [...] acute abnormality.U/S ART FLW DOPPLER STELLA LOW [id number] 11:52:11BILATERAL LOWER EXTREMITY ARTERIAL DOPPLER :Location code: [id number] HISTORY: Bilateral leg pain with peripheral vascular [...] RBC MORPH (test code=RBCMOR) NORMAL COMPREHENSIVE METABOLIC [id number] 06:16:00 Test Item Value Reference Range Comments [...] 8 IU/L <=78 GLUCOMETER GLUCOSE- LAB USE [id number] 05:30:00 Test Item Value Reference Range Comments GLUCOMETER (test code=GMG) 118 mg/dL 70-100 CLEANED METERMeter ID: [id number]: [id number] MARGE OWSU GLUCOMETER GLUCOSE- LAB USE [id number] 22:27:00 Test Item Value Reference Range Comments GLUCOMETER (test code=GMG) 158 mg/dL 70-100 Meter ID: [id number]: 2907 MARGE [address]SU GLUCOMETER GLUCOSE- LAB USE [id number] 21:35:00 Test Item Value Reference Range Comments GLUCOMETER (test code=GMG) 63 mg/dL 70-100 Meter ID: [id number]: 2907 MARGE [address]SU EOSINOPHIL SMEAR [id number] 19:44:00 Test Item Value Reference Range Comments EO URINE (test code=EOU) MODERATE /OIF NONE SEEN CREATININE RANDOM [id number] 19:30:00 Test Item Value Reference Range Comments CREErik DOE (test code=CREAR) 47.8 mg/dL NRR (test code=NRR) * NO REFRENCE RANGE AVAILABLE FOR RANDOM SPECIMEN* PROTEIN URINE [id number] 19:18:00 Test Item Value Reference Range Comments PROT NADER (test code=KY) 76 mg/dL NRR (test code=NRR) * NO REFRENCE RANGE AVAILABLE FOR RANDOM SPECIMEN* GLUCOMETER GLUCOSE- LAB USE [id number] 15:24:00 Test Item Value Reference Range Comments GLUCOMETER (test code=GMG) 148 mg/dL 70-100 CLEANED METERMeter ID: [id number]: [id number] ISAAC YU GLUCOMETER GLUCOSE- LAB USE [id number] 12:43:00 Test Item Value Reference Range Comments GLUCOMETER (test code=GMG) 184 mg/dL 70-100 Meter ID: [id number]: [id number] NICOL HERNADEZ CARDIAC [id number] 12:26:00 Test Item Value Reference Range Comments TROPONIN I (test code=A84) 0.098 ng/mL 0.000-0.045 CKMB (test code=A49) 5.0 ng/mL <=3.6 CPK (test code=32A) 58 IU/L 26-192 [id number] 12:23:00 Test Item Value Reference Range Comments Hb A1C % (test code=HBA) 8.8 % 4.2-6.3 URINALYSIS WITH [id number] 12:15:00 Test Item Value Reference Range Comments [...] NO RBC MORPH (test code=RBCMOR) NORMAL CARDIAC [id number] 05:42:00 Test Item Value Reference Range Comments TROPONIN I (test code=A84) 0.105 ng/mL 0.000-0.045 CKMB (test code=A49) 4.2 ng/mL <=3.6 CPK (test code=32A) 47 IU/L 26-192 CBC with [id number] 05:10:00 Test Item Value Reference Range Comments [...] Lymph Abs (test code=ALYMPH) 1.2 K/cumm 0.5-4.6 [place] Abs (test code=AMONO) 0.4 K/cumm 0.0-1.2 Eos Abs (test code=AEOS) 0.07 K/cumm 0.00-0.74 Baso Abs (test code=ABASO) 0.0 K/cumm 0.00-0.21 RBC Morphology (test Slight Hypochromia code=RBCMRPH) Platelet Est (test code=PLTEST) Adequate Platelets on Smear Glycosylated [id number] 03:33:00 Test Item Value Reference Range Comments HBA1c (test code=HBA1C) 9.5 % 4.8-5.9 Comprehensive Metabolic [id number] 00:02:00 Test Item Value Reference Range Comments [...] race is not provided, and the patient isAfrican-Haitian, multiply by 1.212. If sex is not provided, and thepatient is female, multiply by 0.742. Results for patients <18 years ofage have not been validated by the MDRD study and should be interpretedwith caution.eGFR Result Interpretation:eGFR > or=60 is in the Normal RangeeGFR < 60 may mean kidney diseaseeGFR < 15 may mean kidney failureRanges recommended by the National Kidney Foundation,http://nkdep.nih. gov Lipid [id number] 00:02:00 Test Item Value Reference Range Comments Cholesterol (test 251 mg/dL 0-200 code=CHOL) Triglycerides (test 201 mg/dL 9-200 code=TRIG) HDL (test code=HDL) 44 mg/dL 50-60 Chol/HDL (test 5.7 Ratio 0.0-4.4 code=CHOLPHDL) LDL, Calculated (test 167 0-130 (NOTE)RISK OF HEART code=LDLC) DISEASEPublished by Haitian Heart AssociationAnalyte Optimal Boderline Increased RiskCHOL <200 200-239 >240TRIG <150 150-199 >200HDL Male: >60 <40HDL Female: >60 <50LDL <100 130-159 >160LDL NEAR OPTIMAL IS 100-129 VLDL (test code=VLDL) 40 mg/dL 5-40 LDL/HDL (test code=LDLPHDL) 4
[2018-11-25] MEDS ORDERED: SILVER SULFADIAZINE 1% 25 GM TOP ONE (12:30)
[2018-11-25] MEDS ORDERED: TETANUS & DIPHTHERIA TOX,ADULT 0.5 ML VIAL ONE (13:02)
--- NOTE | 2018-11-25 13:10 | RAD REPORT ---
EXAM DESCRIPTION: RAD - Foot Left 2 View - 11/25/2018 1:02 pm CLINICAL HISTORY: PAIN COMPARISON: Foot Left 3 View dated 09/20/2018; Os Calcis (Calcaneus) Heel dated 05/02/2017 FINDINGS: Marked osteopenia. Vascular calcifications are seen. Small calcaneal spurs noted. Flatfoot deformity is also present appear IMPRESSION: No radiographic finding to indicate osteomyelitis, although assessment is limited by ost eopenia. MR imaging could be obtained for further assessment if clinically needed.
--- NOTE | 2018-11-25 13:14 | RAD REPORT ---
EXAM DESCRIPTION: RAD - Chest Single View - 11/25/2018 1:02 pm CLINICAL HISTORY: Cough, soft tissue wound COMPARISON: September 20, 2018 TECHNIQUE: AP portable chest image was obtained 1252 hours . FINDINGS: Lungs are underinflated. Patient has chronic interstitial lung disease that is accentuated . Cardiomegaly is present. There is vascular engorgement. Pacemaker/defibrillator is in place. Sterno kian wires are in place. Patchy alveolar opacities are present as well. CHF/volume overload is suspec sean. Focal right midlung field opacification should be monitored for clearance to assure no underlyin g mass. No pneumothorax or large pleural effusion. No acute bony abnormality seen. No acute aortic findings suspected. IMPRESSION: CHF/volume overload pattern is present accentuated by shallow inspiration. Focal right midlung field opacification is probably part of the failure pattern rather than mass. Thi s needs monitoring after medical treatment to assure clearing.
[2018-11-25 14:08] LABS: Urine Blood TRACE (NEG); Urine Glucose NEGATIVE (NEG); Urine Protein 1+ (NEG); Urine Specific Gravity >1.030 (1.005-1.030)
[2018-11-25 14:10] LABS: Absolute Lymphocytes (CBC) 1.3 K/uL (0.7-4.9); Absolute Monocytes 0.7 K/uL (0.1-1.3); Absolute Neutrophil 6.4 K/uL (1.8-8.0); Basophils % 0.6 % (0-1.3); Eosinophils % 1.4 % (0-4.4); Hematocrit 24.5 % (36.0-45.0); MPV 7.6 fL (7.6-11.3); Monocytes % 8.4 % (3.3-12.3); RBC Red Blood Cell Count 2.86 M/uL (3.86-4.86)
[2018-11-25 14:11] LABS: Protime INR 1.27
--- NOTE | 2018-11-25 14:57 | EKG ---
Test Date: 2018-11-25 Test Time: 13:53:33 Ensemble Member: JAN MEASUREMENT RESULTS: Intervals: Rate: 72 DC: QRSD: 140 QT: 356 QTc: 389 [place]: P: DC: QRS: 116 T: -48 INTERPRETIVE STATEMENTS: Electronic ventricular pacemaker Compared to ECG 09/20/2018 10:52:23 AV dual-paced complex(es) or rhythm no longer present Electronically Signed On 11-25-18 14:56:39 CDT by Arik Roa
[2018-11-25 15:01] LABS: ALT/SGPT 7 U/L (12-78); AST/SGOT 8 U/L (15-37); Albumin 1.8 g/dL (3.4-5.0); Alkaline Phosphatase 93 U/L (45-117); BUN Blood Urea Nitrogen 62 mg/dL (7-18); Bicarbonate 21 mmol/L (21-32); Bilirubin Direct < 0.1 mg/dL (0-0.2); Bilirubin Total 0.3 mg/dL (0.2-1.0); Glucose Level 100 mg/dL (74-106); Lipase 64 U/L (73-393); Magnesium 1.7 mg/dL (1.8-2.4); NT PRO-BNP 81016 pg/mL (<450); Protein, Total 6.6 g/dL (6.4-8.2); Sodium Level 142 mmol/L (136-145); Troponin (Emerg Dept Use Only) 0.07 ng/mL (0.0-0.045)
--- NOTE | 2018-11-25 16:04 | EDPHYS ---
Physician Documentation [facility] Name: Karissa Frias Age: 83 yrs Sex: Female : 1935 Arrival Date: 11/25/2018 Time: 11:39 Bed 13 Private MD: Carlton Owen E ED Physician Skinny Luna HPI: 11/25 12:19 This 83 yrs old Black Female presents to ER via Wheelchair with complaints of Toe katerina Problem. 12:19 The patient presents with decreased range of motion, pain, that is acute. The katerina complaints affect the lateral aspect of left foot. Context: The problem was sustained at an unknown site. Onset: The symptoms/episode began/occurred 1 day(s) ago. Modifying factors: The symptoms are alleviated by nothing. the symptoms are aggravated by nothing. Associated signs and symptoms: The patient has no apparent associated signs or symptoms. The complaints affect the left foot, Left first toenail. Historical: - Allergies: 11:51 No Known Allergies; aa5 - Home Meds: 16:15 acetaminophen 325 mg Oral tab 2 tabs every 4 hours for Pain [Active]; aspirin 81 mg ph Oral TbEC 1 tab once daily [Active]; carvedilol 12.5 mg Oral tab 1 tab 2 times per day [Active]; digoxin 125 mcg Oral tab 1 tab once daily [Active]; furosemide 40 mg Oral tab 1 tab 2 times per day [Active]; hydralazine 25 mg Oral tab [Active]; melatonin 3 mg Oral tab nightly [Active]; metformin 500 mg Oral tab 1 tab 2 times per day [Active]; Nephro-Josh 0.8 mg Oral tab [Active]; nifedipine 90 mg Oral TbER 1 tab once daily [Active]; Plavix 75 mg Oral tab 1 tab once daily [Active]; mupirocin 2 % Topical oint twice a day [Active]; - PMHx: 11:51 Anemia; Atrial Fib; CAD; CHF; Diabetes - NIDDM; DYSPHAGIA; High Cholesterol; aa5 Hypertension; osteomyelitis; Renal Disease; - PSHx: 11:51 pacer/defib; PEG tube; triple bypass; right BKA; aa5 - Immunization history:: Adult Immunizations unknown. - Social history:: Smoking status: Patient/guardian denies using tobacco. - Ebola Screening: : No symptoms or risks identified at this time. - Family history:: not pertinent. ROS: 12:19 Constitutional: Negative for fever, chills, and weight loss, Eyes: Negative for injury, katerina pain, redness, and discharge, ENT: Negative for injury, pain, and discharge, Neck: Negative for injury, pain, and swelling, Cardiovascular: Negative for chest pain, palpitations, and edema, Respiratory: Negative for shortness of breath, cough, wheezing, and pleuritic chest pain, Abdomen/GI: Negative for abdominal pain, nausea, vomiting, diarrhea, and constipation, Back: Negative for injury and pain, : Negative for injury, bleeding, discharge, and swelling, Skin: Negative for injury, rash, and discoloration, Neuro: Negative for headache, weakness, numbness, tingling, and seizure, Psych: Negative for depression, anxiety, suicide ideation, homicidal ideation, and hallucinations, Allergy/Immunology: Negative for hives, rash, and allergies, Endocrine: Negative for neck swelling, polydipsia, polyuria, polyphagia, and marked weight changes, Hematologic/Lymphatic: Negative for swollen nodes, abnormal bleeding, and unusual bruising. 12:19 MS/extremity: Positive for injury or acute deformity, pain, swelling, tenderness, of the Left first toenail. Exam: 12:19 Constitutional: This is a well developed, well nourished patient who is awake, alert, katerina and in no acute distress. Head/Face: Normocephalic, atraumatic. Eyes: Pupils equal round and reactive to light, extra-ocular motions intact. Lids and lashes normal. Conjunctiva and sclera are non-icteric and not injected. Cornea within normal limits. Periorbital areas with no swelling, redness, or edema. ENT: Nares patent. No nasal discharge, no septal abnormalities noted. Tympanic membranes are normal and external auditory canals are clear. Oropharynx with no redness, swelling, or masses, exudates, or evidence of obstruction, uvula midline. Mucous membranes moist. Neck: Trachea midline, no thyromegaly or masses palpated, and no cervical lymphadenopathy. Supple, full range of motion without nuchal rigidity, or vertebral point tenderness. No Meningismus. Chest/axilla: Normal chest wall appearance and motion. Nontender with no deformity. No lesions are appreciated. Cardiovascular: Regular rate and rhythm with a normal S1 and S2. No gallops, murmurs, or rubs. Normal PMI, no JVD. No pulse deficits. Respiratory: Lungs have equal breath sounds bilaterally, clear to auscultation and percussion. No rales, rhonchi or wheezes noted. No increased work of breathing, no retractions or nasal flaring. Abdomen/GI: Soft, non-tender, with normal bowel sounds. No distension or tympany. No guarding or rebound. No evidence of tenderness throughout. Back: No spinal tenderness. No costovertebral tenderness. Full range of motion. Female : Normal external genitalia. Neuro: Awake and alert, GCS 15, oriented to person, place, time, and situation. Cranial nerves II-XII grossly intact. Motor strength 5/5 in all extremities. Sensory grossly intact. Cerebellar exam normal. Normal gait. Psych: Awake, alert, with orientation to person, place and time. Behavior, mood, and affect are within normal limits. 12:19 Skin: injury, avulsion(s), a small of the Left first toenail. 12:19 Neuro: Orientation: appropriate for stated age, no acute changes, Mentation: appropriate for stated age, no acute changes, Memory: appropriate for stated age, no acute changes, Cranial nerves: is grossly normal based on the patient's age, no acute changes, CN I not tested, CN II- XII are normal as tested, Cerebellar function: is grossly normal based on the patient's age, no acute changes, Motor: is normal, moves all fours, Sensation: no obvious gross deficits, Gait: not tested. seizure activity, is not displayed by the patient. Vital Signs: 11:51 BP 141 / 60; Pulse 86; Resp 16 S; Temp 99.0(TE); Pulse Ox 100% on R/A; aa5 13:30 BP 157 / 78; Pulse 73; Resp 16; Pulse Ox 100% on R/A; ph 14:30 BP 176 / 84; Pulse 71; Resp 16; Pulse Ox 99% on R/A; ph 15:44 BP 175 / 84; Pulse 71; Resp 18; Pulse Ox 98% on R/A; ph 16:45 BP 164 / 78; Pulse 72; Resp 18; Pulse Ox 99% on R/A; ph 17:49 BP 153 / 71; Pulse 70; Resp 18; Temp 98.2; Pulse Ox 97% on R/A; ph MDM: 11:53 Patient medically screened. [facility] 12:21 Data reviewed: vital signs, nurses notes, lab test result(s), EKG, radiologic studies, katerina plain films. 11/25 12:18 Order name: Basic Metabolic Panel; Complete Time: 15:52 [facility] 11/25 12:18 Order name: CBC with Diff; Complete Time: 15:52 [facility] 11/25 12:18 Order name: LFT's; Complete Time: 15:52 [facility] 11/25 12:18 Order name: Magnesium; Complete Time: 15:52 [facility] 11/25 12:18 Order name: NT PRO-BNP; Complete Time: 15:52 [facility] 11/25 12:18 Order name: PT-INR; Complete Time: 15:52 [facility] 11/25 12:18 Order name: Troponin (emerg Dept Use Only); Complete Time: 15:52 [facility] 11/25 12:18 Order name: XRAY Chest (1 view); Complete Time: 13:42 [facility] 11/25 12:18 Order name: Urine Culture [facility] 11/25 12:18 Order name: Lipase; Complete Time: 15:52 [facility] 11/25 12:19 Order name: Foot Left 2 View XRAY; Complete Time: 13:42 [facility] 11/25 13:53 Order name: Urine Dipstick--Ancillary (enter results); Complete Time: 15:52 11/25 15:58 Order name: Type And Screen [facility] 11/25 16:01 Order name: Digoxin 11/25 12:18 Order name: EKG; Complete Time: 12:20 [facility] 11/25 12:18 Order name: Cardiac monitoring; Complete Time: 14:07 [facility] 11/25 12:18 Order name: EKG - Nurse/Tech; Complete Time: 14:07 [facility] 11/25 12:18 Order name: IV Saline Lock; Complete Time: 14:07 [facility] 11/25 12:18 Order name: Labs collected and sent; Complete Time: 14:07 [facility] 11/25 12:18 Order name: O2 Per Protocol; Complete Time: 14:07 [facility] 11/25 12:18 Order name: O2 Sat Monitoring; Complete Time: 14:07 [facility] 11/25 12:18 Order name: Wound dressing; Complete Time: 14:06 [facility] 11/25 12:18 Order name: Urine Dipstick-Ancillary (obtain specimen); Complete Time: 14:06 [facility] 11/25 15:57 Order name: [place]; Complete Time: 15:58 [facility] Administered Medications: 14:06 Not Given (Other Intervention Used): Tetanus-Diphtheria Toxoid Adult 0.5 ml IM once ph 14:07 Drug: Silvadene Cream 1 % 1 application Route: Topical; Site: wound; ph 17:13 Drug: NS 0.9% 1000 ml Route: IV; Rate: 75 ml/hr; Site: left forearm; ph 18:03 Follow up: Response: No adverse reaction; IV Status: Infusion continued upon admission ph 17:14 Drug: Pepcid 20 mg Route: IVP; Site: left forearm; ph 18:03 Follow up: Response: No adverse reaction ph 17:14 Drug: Magnesium Sulfate 1 grams Route: IVPB; Infused Over: 1 hrs; Site: left forearm; ph 18:02 Follow up: Response: No adverse reaction; IV Status: Completed infusion ph 17:14 Drug: Lasix 20 mg Route: IVP; Site: left forearm; ph 18:02 Follow up: Response: No adverse reaction ph 17:49 Drug: Cefepime 1 grams Route: IVPB; Rate: 200 ml/hr; Infused Over: 30 mins; Site: left ph forearm; 18:02 Follow up: Response: No adverse reaction; IV Status: Infusion continued upon admission ph Disposition: 11/25/18 16:03 Hospitalization ordered by Rebceca Renee for Inpatient Admission. Preliminary diagnosis are Type 2 diabetes mellitus, Unspecified kidney failure, Hypomagnesemia, Anemia, unspecified, Laceration without foreign body, left foot - left great toe, Urinary tract infection, site not specified. - Bed requested for Telemetry/MedSurg (Inpatient). - Status is Inpatient Admission. ph - Condition is Fair. - Problem is new. - Symptoms have improved. UTI on Admission? Yes Signatures: Dispatcher [employer] EDSkinny Garcia MD MD cha Calderon, Audri, RN RN aa5 Britney North RN RN ph Fitzgerald, Diane, RN RN df Corrections: (The following items were deleted from the chart) 16:04 16:03 Hospitalization Ordered by Rebecca Renee MD for Inpatient Admission. Preliminary [facility] diagnosis is Type 2 diabetes mellitus; Unspecified kidney failure; Hypomagnesemia; Anemia, unspecified; Laceration without foreign body, left foot - left great toe. Bed requested for Telemetry/MedSurg (Inpatient). Status is Inpatient Admission. Condition is Fair. Problem is new. Symptoms have improved. UTI on Admission? No. [facility] 17:06 16:04 11/25/2018 16:03 Hospitalization Ordered by Rebecca Renee MD for Inpatient df Admission. Preliminary diagnosis is Type 2 diabetes mellitus; Unspecified kidney failure; Hypomagnesemia; Anemia, unspecified; Laceration without foreign body, left foot - left great toe; Urinary tract infection, site not specified. Bed requested for Telemetry/MedSurg (Inpatient). Status is Inpatient Admission. Condition is Fair. Problem is new. Symptoms have improved. UTI on Admission? Yes. [facility] 18:46 17:06 11/25/2018 16:03 Hospitalization Ordered by Rebecca Renee MD for Inpatient ph Admission. Preliminary diagnosis is Type 2 diabetes mellitus; Unspecified kidney failure; Hypomagnesemia; Anemia, unspecified; Laceration without foreign body, left foot - left great toe; Urinary tract infection, site not specified. Bed requested for Telemetry/MedSurg (Inpatient). Status is Inpatient Admission. Condition is Fair. Problem is new. Symptoms have improved. UTI on Admission? Yes. df
--- NOTE | 2018-11-25 16:04 | ER ---
Nurse's Notes [facility] Name: Karissa Frias Age: 83 yrs Sex: Female : 1935 Arrival Date: 11/25/2018 Time: 11:39 Bed 13 Private MD: Carlton Owen E Diagnosis: Type 2 diabetes mellitus;Unspecified kidney failure;Hypomagnesemia;Anemia, unspecified;Laceration without foreign body, left foot-left great toe;Urinary tract infection, site not specified Presentation: 11/25 11:48 Presenting complaint: Pt's daughter states "one of her toes cracked open yesterday and aa5 she is diabetic". Transition of care: patient was not received from another setting of care. Onset of symptoms was November 2018. Risk Assessment: Do you want to hurt yourself or someone else? Unable to obtain. Care prior to arrival: None. 11:48 Method Of Arrival: Wheelchair aa5 11:48 Acuity: LAURO 3 aa5 11:51 Initial Sepsis Screen: Does the patient meet any 2 criteria? No. Patient's initial aa5 sepsis screen is negative. Does the patient have a suspected source of infection? No. Patient's initial sepsis screen is negative. Historical: - Allergies: 11:51 No Known Allergies; aa5 - Home Meds: 16:15 acetaminophen 325 mg Oral tab 2 tabs every 4 hours for Pain [Active]; aspirin 81 mg ph Oral TbEC 1 tab once daily [Active]; carvedilol 12.5 mg Oral tab 1 tab 2 times per day [Active]; digoxin 125 mcg Oral tab 1 tab once daily [Active]; furosemide 40 mg Oral tab 1 tab 2 times per day [Active]; hydralazine 25 mg Oral tab [Active]; melatonin 3 mg Oral tab nightly [Active]; metformin 500 mg Oral tab 1 tab 2 times per day [Active]; Nephro-Josh 0.8 mg Oral tab [Active]; nifedipine 90 mg Oral TbER 1 tab once daily [Active]; Plavix 75 mg Oral tab 1 tab once daily [Active]; mupirocin 2 % Topical oint twice a day [Active]; - PMHx: 11:51 Anemia; Atrial Fib; CAD; CHF; Diabetes - NIDDM; DYSPHAGIA; High Cholesterol; aa5 Hypertension; osteomyelitis; Renal Disease; - PSHx: 11:51 pacer/defib; PEG tube; triple bypass; right BKA; aa5 - Immunization history:: Adult Immunizations unknown. - Social history:: Smoking status: Patient/guardian denies using tobacco. - Ebola Screening: : No symptoms or risks identified at this time. - Family history:: not pertinent. Screenin:55 Abuse screen: Denies threats or abuse. Denies injuries from another. Nutritional ph screening: No deficits noted. Tuberculosis screening: No symptoms or risk factors identified. Fall Risk None identified. Assessment: 12:30 General: Appears in no apparent distress. uncomfortable, slender, Behavior is calm, ph cooperative, appropriate for age, Denies fever. Pain: Denies pain. Neuro: Level of Consciousness is awake, alert, obeys commands, Oriented to person, place, time, situation. Cardiovascular: Capillary refill is > 3 seconds in bilateral fingers Patient's skin is warm and dry. Respiratory: Airway is patent Respiratory effort is even, unlabored, Respiratory pattern is regular, symmetrical. GI: No signs and/or symptoms were reported involving the gastrointestinal system. : Zarco in place to gravity drainage Urine is cloudy. Derm: Skin is fragile, is thin, Skin is pink, warm \\T\\ dry. Decubitus located on left heel(s) approximately 1.5 cm to 2.5 cm is stage III. Musculoskeletal: Amputation of right leg. Injury Description: Abrasion sustained to tip of left first toe. 13:30 Reassessment: Patient appears in no apparent distress at this time. Patient and/or ph family updated on plan of care and expected duration. Pain level reassessed. Patient is alert, oriented x 3, equal unlabored respirations, skin warm/dry/pink. Pt resting quietly, awaiting radiology results. 14:30 Reassessment: Patient appears in no apparent distress at this time. Patient and/or ph family updated on plan of care and expected duration. Pain level reassessed. Patient is alert, oriented x 3, equal unlabored respirations, skin warm/dry/pink. 16:00 Reassessment: Patient appears in no apparent distress at this time. Patient and/or ph family updated on plan of care and expected duration. Pain level reassessed. Patient is alert, oriented x 3, equal unlabored respirations, skin warm/dry/pink. 17:30 Reassessment: Patient appears in no apparent distress at this time. Patient and/or ph family updated on plan of care and expected duration. Pain level reassessed. Patient is alert, oriented x 3, equal unlabored respirations, skin warm/dry/pink. Pt resting quietly, repositioned onto L side w/ pillow behind back for comfort, VSS, awaiting room assignment. 17:55 Reassessment: Attempted to call report to 2nd, receiving nurse unavailable. ph 18:05 Reassessment: Patient appears in no apparent distress at this time. Attempted to call ph report to 2nd, placed on hold> 7 min, will attempt again. 18:25 Reassessment: Patient appears in no apparent distress at this time. Patient and/or ph family updated on plan of care and expected duration. Pain level reassessed. Patient is alert, oriented x 3, equal unlabored respirations, skin warm/dry/pink. Report called to second floor. Vital Signs: 11:51 BP 141 / 60; Pulse 86; Resp 16 S; Temp 99.0(TE); Pulse Ox 100% on R/A; aa5 13:30 BP 157 / 78; Pulse 73; Resp 16; Pulse Ox 100% on R/A; ph 14:30 BP 176 / 84; Pulse 71; Resp 16; Pulse Ox 99% on R/A; ph 15:44 BP 175 / 84; Pulse 71; Resp 18; Pulse Ox 98% on R/A; ph 16:45 BP 164 / 78; Pulse 72; Resp 18; Pulse Ox 99% on R/A; ph 17:49 BP 153 / 71; Pulse 70; Resp 18; Temp 98.2; Pulse Ox 97% on R/A; ph ED Course: 11:39 Patient arrived in ED. as 11:39 Carlton Owen MD is Private Physician. as 11:48 Arm band placed on. aa5 11:49 Triage completed. aa5 11:53 Skinny Luna MD is Attending Physician. [facility] 11:54 Britney North, RN is Primary Nurse. ph 11:55 Patient has correct armband on for positive identification. Bed in low position. Call ph light in reach. Side rails up X 1. Pulse ox on. NIBP on. 13:02 XRAY Chest (1 view) In Process Unspecified. EDMS 13:02 Foot Left 2 View XRAY In Process Unspecified. EDMS 14:08 EKG done, by refrigeration service technician. reviewed by Skinny Luna MD. at1 14:15 Missed attempt(s): 22 gauge in right antecubital area. 24 gauge in left hand. ph 15:59 Rebecca Renee MD is Hospitalizing Provider. katerina 16:16 No provider procedures requiring assistance completed. ph 16:25 Missed attempt(s): 22 gauge in right antecubital area. Bleeding controlled, band aid iw applied, catheter tip intact. 16:30 T\\T\\S collected, blood band applied to patient. Inserted saline lock: 22 gauge in left iw forearm, using aseptic technique. Blood collected. 16:32 Type And Screen Sent. iw 18:06 Patient admitted, IV remains in place. ph Administered Medications: 14:06 Not Given (Other Intervention Used): Tetanus-Diphtheria Toxoid Adult 0.5 ml IM once ph 14:07 Drug: Silvadene Cream 1 % 1 application Route: Topical; Site: wound; ph 17:13 Drug: NS 0.9% 1000 ml Route: IV; Rate: 75 ml/hr; Site: left forearm; ph 18:03 Follow up: Response: No adverse reaction; IV Status: Infusion continued upon admission ph 17:14 Drug: Pepcid 20 mg Route: IVP; Site: left forearm; ph 18:03 Follow up: Response: No adverse reaction ph 17:14 Drug: Magnesium Sulfate 1 grams Route: IVPB; Infused Over: 1 hrs; Site: left forearm; ph 18:02 Follow up: Response: No adverse reaction; IV Status: Completed infusion ph 17:14 Drug: Lasix 20 mg Route: IVP; Site: left forearm; ph 18:02 Follow up: Response: No adverse reaction ph 17:49 Drug: Cefepime 1 grams Route: IVPB; Rate: 200 ml/hr; Infused Over: 30 mins; Site: left ph forearm; 18:02 Follow up: Response: No adverse reaction; IV Status: Infusion continued upon admission ph Outcome: 16:03 Decision to Hospitalize by Provider. katerina 18:32 Admitted to Tele accompanied by tech, via stretcher, with chart. ph 18:32 Condition: stable 18:46 Patient left the ED. ph Signatures: Dispatcher [employer] Skinny Brice MD MD cha Martinez, Amelia as Annabel Crain RN RN iw Elaina Camilo RN RN aa5 Marika Adams, internal sales engineer EKG Tat1 Britney North RN RN ph Corrections: (The following items were deleted from the chart) 12:29 11:48 Acuity: LAURO 4 aa5 aa5
[2018-11-25] MEDS ORDERED: FAMOTIDINE 20 MG/2 ML VIAL IV ONE (16:37)
[2018-11-25] MEDS ORDERED: FUROSEMIDE 20 MG/ 2ML VIAL ONE (16:37)
[2018-11-25] MEDS ORDERED: MAGNESIUM SULFATE 1 gm IVPB 1 GM/100 ML BAG IV ONE (16:37)
[2018-11-25] MEDS ORDERED: NA CHLORIDE 0.9% 500 ML ONE (16:37)
[2018-11-25] MEDS ORDERED: CEFEPIME 1 GM/100 ML BAG IV ONE (16:37)
--- NOTE | 2018-11-25 18:41 | P.HP ---
Certification for Inpatient Patient admitted to: Observation With expected LOS: <2 Midnights Practitioner: I am a practitioner with admitting privileges, knowledge of patient current condition, hospital course, and medical plan of care. Services: Services provided to patient in accordance with Admission requirements found in Title 42 Section 412.3 of the Code of Federal Regulations Patient History Date of Service: 11/25/18 Reason for admission: Left toe bleeding History of Present Illness: This is this is a 83-year-old female with history of CHF, anemia, CKD brought in by her daughter for complaints of bleeding on the left toe. Per daughter, she thinks that her skin peeled off that caused her to bleeding. He did low- grade therefore she was brought into the ER. In the ER, patient was hemodynamically stable, labs were remarkable for hemoglobin of 8.3 and a creatinine of 4.35. Per daughter, creatinine baseline is 2.5-3. Her urine will also noted to have trace leukocyte esterase. Foot x-ray was done, which is negative for any acute osteomyelitis. Chest x-ray was done with suspicion for overload. Patient does have a longstanding history of CHF. Last echo on file is from December 2017 with ejection fraction of 20%, severe pulmonary hypertension, aortic sclerosis and global hypokinesis. On the time of my exam, patient was sleepy, the responsive. Per daughter, she was at baseline mentation. She was hemodynamically stable and it looked she was in no acute distress. She was admitted for observation for acute on chronic kidney disease along with chronic anemia. Allergies No Known Allergies Allergy (Verified 08/27/17 00:20) Home medications list reviewed: Yes Home Medications: Aspirin Chewable [Aspirin Chewable*] 81 mg PO DAILY 04/08/18 Carvedilol [Coreg] 12.5 mg PO BID 04/08/18 Clopidogrel Bisulfate [Plavix*] 75 mg PO DAILY 04/08/18 Collagenase [Santyl Ointment*] 1 fern TOP TID 04/08/18 Digoxin [Lanoxin*] 125 mcg PO DAILY 04/08/18 Folic Acid/Vitamin B Comp W-C [Nephro-Josh Tablet] 0.8 mg PO DAILY 04/08/18 Furosemide [Lasix] 40 mg PO BID 04/08/18 Hydralazine [Apresoline] 25 mg PO TID 04/08/18 Lisinopril [Prinivil*] 5 mg PO DAILY 04/08/18 Melatonin [Melatonin*] 3 mg PO BEDTIME 04/08/18 Metformin ER [Glucophage ER*] 500 mg PO BID 04/08/18 Mupirocin Cream [Bactroban 2% Cream*] 1 fern TOP BID 04/08/18 Nifedipine Xl [Procardia Xl*] 90 mg PO DAILY 04/08/18 Meropenem [Merrem 1 GM/100 ML NS IVPB] 1 gm IV BID #1 bag 04/12/18 - Past Medical/Surgical History Diabetic: Yes -: Atrial fibrillation, NO chronic anticoagulation -: CAD -: HTN -: DM Type 2 -: Anemia of Chronic disease -: Chronic Renal Disease -: PVD -: DM Foot ulcer -: Diabetic neuropathy -: Malnutrition -: Hx of Pacemaker/Defibrillator -: PEG tube -: AICD placement -: PEG tube placement Psychosocial/ Personal History: half-way placement - Family History Father -: Diabetes Mother -: Diabetes - Social History Alcohol use: No CD- Drugs: No Caffeine use: No Review of Systems 10-point ROS is otherwise unremarkable Physical Examination - Physical Exam General: In no apparent distress, Other (Sleepy the responsive, responds appropriately per daughter) HEENT: Atraumatic, PERRLA, Mucous membr. moist/pink, EOMI, Sclerae nonicteric Neck: Supple, 2+ carotid pulse no bruit, No LAD, Without JVD or thyroid abnormality Respiratory: Clear to auscultation bilaterally, Normal air movement Cardiovascular: Regular rate/rhythm, Normal S1 S2 Gastrointestinal: Normal bowel sounds, No tenderness Musculoskeletal: Other (Right BKA) Integumentary: Skin breakdown (Left big toe, bandaged. bright red blood noted on bandaging) - Studies Laboratory Data (last 24 hrs) 11/25/18 13:49: PT 14.9 H, INR 1.27 11/25/18 13:49: WBC 8.6, Hgb 8.3 L, Hct 24.5 L, Plt Count 250 11/25/18 13:49: Sodium 142, Potassium 4.0, BUN 62 H, Creatinine 4.25 H, Glucose 100, Magnesium 1.7 L, Total Bilirubin 0.3, AST 8 L, ALT 7 L, Alkaline Phosphatase 93, Lipase 64 L Assessment and Plan - Problems (Diagnosis) (1) Toe laceration Current Visit: Yes Status: Acute (2) Acute kidney injury superimposed on CKD Onset Date: 08/27/17 Current Visit: No Status: Acute (3) Heart failure Current Visit: No Status: Acute (4) UTI (urinary tract infection) Onset Date: 04/11/18 Current Visit: No Status: Acute Qualifiers: Urinary tract infection type: acute cystitis Hematuria presence: without hematuria Qualified Code(s): N30.00 - Acute cystitis without hematuria (5) Atrial fibrillation Onset Date: 12/13/17 Current Visit: No Status: Chronic Qualifiers: Atrial fibrillation type: chronic (6) CAD (coronary artery disease) Onset Date: 08/27/17 Current Visit: No Status: Chronic Qualifiers: Coronary Disease-Associated Artery/Lesion type: unspecified vessel or lesion type (7) Dementia Onset Date: 08/27/17 Current Visit: No Status: Chronic Qualifiers: (8) Diabetes mellitus Onset Date: 12/13/17 Current Visit: No Status: Chronic Qualifiers: Diabetes mellitus type: type 2 Diabetes mellitus chcf insulin use: unspecified chcf insulin use status Diabetes mellitus complication status : with other specified complication Qualified Code(s): E11.69 - Type 2 diabetes mellitus with other specified complication (9) History of automatic internal cardiac defibrillator (AICD) Current Visit: No Status: Chronic (10) Hypertension Onset Date: 08/27/17 Current Visit: No Status: Chronic Qualifiers: Hypertension type: essential hypertension (11) Hx of right BKA Current Visit: No Status: Chronic - Plan Admit to floor with tele for observation. Continue wound care as needed for the toe laceration. We Will avoid IV fluids due to history of severe CHF and global hypokinesis. Continue to monitor kidney function via a.m. labs. Per daughter, patient recently had a appointment with her estimator and drafter on 2018. Her pacemaker was interrogated and labs were done Excedrin. Per estimator and drafter, no changes in medication and patient stable at this time from cardiac point of view. We will resume her home medications as she tolerates Rocephin for a suspected UTI. Cultures are pending. Continue to monitor H&H via a.m. labs. hemoglobin stable per patient at this time. Per daughter, patient has a longstanding history of anemia. DVT prophylaxis: SCD GI prophylaxis: Protonix Diet: Soft, patient preferred Disposition: Admit to floor for observation. Continue to monitor overnight. Likely discharge home in the next 24 hr if remains chronically stable Discharge Plan: Home Plan to discharge in: 24 Hours - Advance Directives Does patient have a Living Will: Yes Does patient have a Durable POA for Healthcare: Yes - Code Status/Comfort Care Code Status Assessed: Yes Code Status: Full Code Time Spent Managing Pts Care (In Minutes): 55
[2018-11-25] MEDS ORDERED: ONDANSETRON 4 MG/2 ML VIAL IV PRN (18:57)
[2018-11-25] MEDS ORDERED: CEFTRIAXONE/SWI 1gm 1 GM/10 ML SYR IV ONE (20:57)
[2018-11-25] MEDS: CEFTRIAXONE/SWI 1gm 1 GM/10 ML SYR IV SCH (21:00)
[2018-11-25] MEDS ORDERED: CEFTRIAXONE 1 GM/NS 50 ML 1 GM/50 ML BAG IV SCH (21:00)
[2018-11-26] MEDS ORDERED: MORPHINE 2 MG/ML SYR IV PRN (04:27)
[2018-11-26 04:46] LABS: Urine Appearance TURBID; Urine Bilirubin NEGATIVE (NEG); Urine Blood 1+ (NEG); Urine Color YELLOW; Urine Glucose NEGATIVE (NEG); Urine Protein 1+ (NEG); Urine Urobilinogen 0.2 mg/dL (0.2-1.0)
[2018-11-26 04:52] LABS: Urine Microscopic Reflex ORDER UMIC
[2018-11-26 05:03] LABS: Urine Culture Reflex Order NOT NEEDED
[2018-11-26 05:04] LABS: Urine Bacteria <20 /HPF (<20); Urine RBC <5 /HPF (NONE SEEN); Urine Yeast MANY (NONE SEEN); Urine Yeast with Hyphae PRESENT
[2018-11-26 06:12] LABS: Absolute Lymphocytes (CBC) 1.8 K/uL (0.7-4.9); Absolute Monocytes 0.7 K/uL (0.1-1.3); Absolute Neutrophil 6.8 K/uL (1.8-8.0); Basophils % 0.4 % (0-1.3); Hematocrit 23.3 % (36.0-45.0); Lymphocytes % 19.1 % (15.3-44.8); MPV 7.7 fL (7.6-11.3); Monocytes % 7.4 % (3.3-12.3); RBC Red Blood Cell Count 2.74 M/uL (3.86-4.86)
[2018-11-26 06:32] LABS: AST/SGOT 8 U/L (15-37); Albumin 1.7 g/dL (3.4-5.0); Alkaline Phosphatase 91 U/L (45-117); BUN Blood Urea Nitrogen 60 mg/dL (7-18); Bicarbonate 21 mmol/L (21-32); Bilirubin Total 0.2 mg/dL (0.2-1.0); Glucose Level 68 mg/dL (74-106); Phosphorus 4.8 mg/dL (2.5-4.9); Potassium 3.9 mmol/L (3.5-5.1); Protein, Total 6.2 g/dL (6.4-8.2); Sodium Level 142 mmol/L (136-145)
[2018-11-26 06:33] LABS: ALT/SGPT < 6 U/L (12-78)
--- NOTE | 2018-11-26 08:04 | RAD REPORT ---
EXAM DESCRIPTION: Gama Single View11/26/2018 6:46 am CLINICAL HISTORY: Shortness of breath COMPARISON: November 25 FINDINGS: No significant change in mild to moderate bilateral pulmonary opacities. The heart remains enlarged. Postsurgical changes involve the chest. Pacemaker leads remain in place IMPRESSION: No significant change CHF
[2018-11-26] MEDS: CEFTRIAXONE/SWI 1gm 1 GM/10 ML SYR IV SCH (08:26)
[2018-11-26] MEDS ORDERED: POTASSIUM CL SA 10 MEQ TAB PO ONE (09:00)
--- NOTE | 2018-11-26 10:09 | P.SSS ---
Patient History Date of Service: 11/26/18 Reason for admission: Left toe bleeding History of Present Illness: This is this is a 83-year-old female with history of CHF, anemia, CKD brought in by her daughter for complaints of bleeding on the left toe. Per daughter, she thinks that her skin peeled off that caused her to bleeding. He did low- grade therefore she was brought into the ER. In the ER, patient was hemodynamically stable, labs were remarkable for hemoglobin of 8.3 and a creatinine of 4.35. Per daughter, creatinine baseline is 2.5-3. Her urine will also noted to have trace leukocyte esterase. Foot x-ray was done, which is negative for any acute osteomyelitis. Chest x-ray was done with suspicion for overload. Patient does have a longstanding history of CHF. Last echo on file is from December 2017 with ejection fraction of 20%, severe pulmonary hypertension, aortic sclerosis and global hypokinesis. On the time of my exam, patient was sleepy, the responsive. Per daughter, she was at baseline mentation. She was hemodynamically stable and it looked she was in no acute distress. She was admitted for observation for acute on chronic kidney disease along with chronic anemia. Allergies No Known Allergies Allergy (Verified 11/25/18 23:33) Home medications list reviewed: Yes Home Medications: Carvedilol 12.5 mg PO BID 11/26/18 Clopidogrel Bisulfate [Plavix] 75 mg PO DAILY 11/26/18 Digoxin [Lanoxin] 0.125 mg PO DAILY 11/26/18 Furosemide 40 mg PO BID 11/26/18 Hydralazine [Apresoline] 25 mg PO TID 11/26/18 Metformin HCl 500 mg PO BID 11/26/18 Nifedipine [Nifedipine ER] 90 mg PO DAILY 11/26/18 Pantoprazole [Protonix Tab] 40 mg PO DAILY 11/26/18 - Past Medical/Surgical History Has patient received pneumonia vaccine in the past: No Diabetic: Yes -: Atrial fibrillation, NO chronic anticoagulation -: CAD -: HTN -: DM Type 2 -: Anemia of Chronic disease -: Chronic Renal Disease -: PVD -: DM Foot ulcer -: Diabetic neuropathy -: Malnutrition -: Hx of Pacemaker/Defibrillator -: PEG tube -: AICD placement -: PEG tube placement Psychosocial/ Personal History: [facility] placement - Family History Father -: Diabetes Mother -: Diabetes - Social History Smoking Status: Never smoker Alcohol use: No CD- Drugs: No Caffeine use: No Place of Residence: Home Review of Systems 10-point ROS is otherwise unremarkable Physical Examination - Vital Signs Temperature: 98.5 F Blood Pressure: 170/78 Pulse: 70 Respirations: 16 Pulse Ox (%): 98 - Physical Exam General: Alert, In no apparent distress, Oriented x3 HEENT: Atraumatic, PERRLA, Mucous membr. moist/pink, EOMI, Sclerae nonicteric Neck: Supple, 2+ carotid pulse no bruit, No LAD, Without JVD or thyroid abnormality Respiratory: Clear to auscultation bilaterally, Normal air movement Cardiovascular: Regular rate/rhythm, Normal S1 S2 Gastrointestinal: Normal bowel sounds, No tenderness Musculoskeletal: No tenderness Integumentary: Skin breakdown (Left toe, bandaged, clean and dry.) Neurological: Normal gait, Normal speech, Normal strength at 5/5 x4 extr, Normal tone, Normal affect Lymphatics: No axilla or inguinal lymphadenopathy - Studies Laboratory Data (last 24 hrs) 11/25/18 13:49: PT 14.9 H, INR 1.27 11/25/18 13:49: WBC 8.6, Hgb 8.3 L, Hct 24.5 L, Plt Count 250 11/25/18 13:49: Sodium 142, Potassium 4.0, BUN 62 H, Creatinine 4.25 H, Glucose 100, Magnesium 1.7 L, Total Bilirubin 0.3, AST 8 L, ALT 7 L, Alkaline Phosphatase 93, Lipase 64 L - Diagnosis (Problem(s)) (1) Toe laceration Current Visit: Yes Status: Acute (2) Acute kidney injury superimposed on CKD Onset Date: 08/27/17 Current Visit: No Status: Acute (3) Heart failure Current Visit: No Status: Acute (4) UTI (urinary tract infection) Onset Date: 04/11/18 Current Visit: No Status: Acute Qualifiers: Urinary tract infection type: acute cystitis Hematuria presence: without hematuria Qualified Code(s): N30.00 - Acute cystitis without hematuria (5) Atrial fibrillation Onset Date: 12/13/17 Current Visit: No Status: Chronic Qualifiers: Atrial fibrillation type: chronic Qualified Code(s): I48.2 - Chronic atrial fibrillation (6) CAD (coronary artery disease) Onset Date: 08/27/17 Current Visit: No Status: Chronic Qualifiers: Coronary Disease-Associated Artery/Lesion type: unspecified vessel or lesion type (7) Dementia Onset Date: 08/27/17 Current Visit: No Status: Chronic Qualifiers: (8) Diabetes mellitus Onset Date: 12/13/17 Current Visit: No Status: Chronic Qualifiers: Diabetes mellitus type: type 2 Diabetes mellitus director long term care insulin use: unspecified intermediate insulin use status Diabetes mellitus complication status : with other specified complication Qualified Code(s): E11.69 - Type 2 diabetes mellitus with other specified complication (9) History of automatic internal cardiac defibrillator (AICD) Current Visit: No Status: Chronic (10) Hypertension Onset Date: 08/27/17 Current Visit: No Status: Chronic Qualifiers: Hypertension type: essential hypertension Qualified Code(s): I10 - Essential (primary) hypertension (11) Hx of right BKA Current Visit: No Status: Chronic Treatment Summary: Patient was admitted to the floor with telemetry for observation. Her toe laceration was cleaned and bandaged. Denies any pain this morning. Bandage is clean and dry. Continue to keep laceration dry and clean. X-rays negative for any evidence of osteomyelitis. Patient with a history of severe CHF global hypokinesis- daughter states that she has had this for a very long time and does follow up with her munitions handler. She did remain at baseline from this aspect throughout the stay. Per daughter , patient recently had a appointment with her munitions handler on 11/24/2018. Her pacemaker was interrogated and labs were done Excedrin. Per munitions handler, no changes in medication and patient stable at this time from cardiac point of view. Her kidney function with improved creatinine. Daughter states that she has had kidney disease for a very long time and they are aware of this. She will follow up with her primary care doctor and her kidney doctor for further management. I did recommend for her to follow up with primary care in 2-3 days for repeat labs. Her hemoglobin remained stable. No evidence of active bleeding. Per daughter, patient has a longstanding history of anemia. This is likely secondary to anemia of chronic disease. Patient had continued follow up with her primary care physician. Patient did receive Rocephin for suspected UTI. Upon questioning, patient denied any GI complaints, any dysuria, any urinary urgency or frequency. We may consider this as asymptomatic bacteriuria. No further antibiotic treatment at this time. Discussed with patient that if she does have any symptoms of urinary burning, urgency or frequency along with foul-smelling urine. She will need to follow up with her primary care physician for urinary testing/ antibiotic treatment. Prior to discharge, she was alert oriented, at baseline mentation. Daughter was at bedside. Patient is hemodynamically stable, labs were stable for her, she was in no acute distress. She denied any complaints or concerns. Daughter also denied any complaints or concerns. Daughter stated that her mother is very busy, has may also want appointments etc. She has been doing well with her chronic diseases. Treatment plan/diagnoses were discussed with patient and daughter. All questions were answered. They verbalized understanding and patient was discharged home in a safe and stable manner. She was instructed to follow up with the primary care physician in 2-3 days for repeat blood work. - Disposition Discharge Date: 11/26/18 Disposition: ROUTINE DISCHARGE Patient Discharge Instructions: Please follow up with the primary care physician in 2-3 days for repeat blood work to check your kidney function. Please return to the emergency room for worsening symptoms. Diet: AHA Activity: Ad brayan Time Spent Managing Pts Care (In Minutes): 55
== END 2018-11-26 12:54 | disposition home or self-care (01) ==
LOC: ER 11:38 → 2ND 16:23
PROVIDERS: ADMIT Family Medicine; ATTEND Family Medicine
DX: I13.0 Hypertensive heart and chronic kidney disease with heart failure and stage 1 through stage 4 chronic kidney disease, or unspecified chronic kidney disease (principal); E11.22 Type 2 diabetes mellitus with diabetic chronic kidney disease; N18.9 Chronic kidney disease, unspecified; I50.9 Heart failure, unspecified; N17.9 Acute kidney failure, unspecified; I48.91 Unspecified atrial fibrillation; I25.10 Atherosclerotic heart disease of native coronary artery without angina pectoris; Z95.810 Presence of automatic (implantable) cardiac defibrillator; Z89.511 Acquired absence of right leg below knee; S91.112A Laceration without foreign body of left great toe without damage to nail, initial encounter; X58.XXXA Exposure to other specified factors, initial encounter; Y92.9 Unspecified place or not applicable
CPT/HCPCS: 96365; 93005; 87088; 85025 ×2; 87086; 80048; 36415; 86900; 83735 ×2; 86850; 84100; 85610; 80162; 86901; 82962 ×3; 80076; 87077; 87186; 81003; 84484; 83690; 80053; 83880; 71045 ×2; 73620; 90714; 94760 ×2; 96375; 99285; J1940; J3475; J2270; J0696; J0692; G0378 ×2; 81015

== ENCOUNTER 2019-04-24 07:59 | Inpatient (IN) | payer OTHER ==
--- OUTSIDE RECORDS SUMMARY | 2019-04-24 08:02 | XMS REPORT | Clinical Summary ---
:1935 Author Organization [facility] Address [address] [place] [address] Care Team Providers Name Role Phone Ester [...] mouth as needed 9 capsule for diarrhea. 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/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 - Hospital Encounter General Internal Xaviimilli, 10/03/2018 Medicine MD Natan Anderson, Ester Arevalo MD after 04/23/2018 Immunizations Name Administration Dates Next Due FLUCELVAX QUAD PF 10/03/2018 Pneumococcal Conjugate 13-Valent 10/03/2018 Social History [...] Vital Signs Vital Sign Reading Time Taken Comments Blood Pressure 145/68 10/03/2018 11:04 AM [facility] Pulse 75 10/03/2018 11:04 AM [facility] [facility] [employer] Temperature 35.9 C (96.6 F) 10/03/2018 11:04 AM [facility] [facility] [employer] Respiratory Rate 18 10/03/2018 11:04 AM [facility] [facility] [employer] IN[employer]CTOR Oxygen Saturation 100% 10/03/2018 11:04 AM [facility] [facility] [employer] Inhaled Oxygen Concentration - - Weight 49.1 kg (108 lb 3.2 oz) 10/03/2018 5:00 AM [facility] [facility] [employer] Height 175.3 cm (5' 9") 09/23/2018 9:00 AM [facility] [facility] [employer] Body Mass Index 15.98 09/23/2018 9:00 AM [facility] [facility] [employer] IN[employer] Plan of Treatment Health Maintenance Due Date Last Done Comments SHINGLES VACCINES (#1) 1987 INFLUENZA VACCINE 03/05/2019 10/03/2018 65+ PNEUMOCOCCAL VACCINE (2 of 2 - PPSV23) 10/04/2019 10/03/2018 Procedures Procedure Name Priority Date/Time Associated Comments Diagnosis ECHOCARDIOGRAM 2D Routine 11/18/2018 COMPLETE W MMODE SPECTRAL COLOR DOPPLER (42506) POC GLUCOSE Routine 10/03/2018 11:17 Results for this AM [employer] procedure are in the results section. POC GLUCOSE Routine 10/03/2018 8:04 Results for this AM [facility] [facility] [employer] procedure are in the results section. ESTIMATED GFR Routine 10/03/2018 5:00 Results for this AM [facility] procedure are in the results section. BASIC METABOLIC PANEL Routine 10/03/2018 5:00 Results for this AM [facility] procedure are in the results section. ESTIMATED GFR Routine 10/02/2018 10:06 Results for this PM [facility] procedure are in the results section. BASIC METABOLIC PANEL Routine 10/02/2018 10:06 Results for this PM [facility] procedure are in the results section. HC COMPLETE BLD COUNT Routine 10/02/2018 10:06 Results for this W/AUTO DIFF PM [facility] procedure are in the results section. POC GLUCOSE Routine 10/02/2018 9:10 Results for this PM [facility] procedure are in the results section. POC GLUCOSE Routine 10/02/2018 3:50 Results for this PM [facility] procedure are in the results section. POC GLUCOSE Routine 10/02/2018 11:19 Results for this AM [facility] procedure are in the results section. ARTERIAL BLOOD GAS Routine 10/02/2018 7:33 Results for this AM [facility] procedure are in the results section. POC GLUCOSE Routine 10/02/2018 7:19 Results for this AM [facility] procedure are in the results section. ESTIMATED GFR Routine 10/02/2018 5:20 Results for this AM [facility] procedure are in the results section. BASIC METABOLIC PANEL Routine 10/02/2018 5:20 Results for this AM [facility] procedure are in the results section. HC COMPLETE BLD COUNT Routine 10/02/2018 5:20 Results for this W/AUTO DIFF AM [facility] procedure are in the results section. POC GLUCOSE Routine 10/01/2018 9:01 Results for this PM [facility] procedure are in the results section. POC GLUCOSE Routine 10/01/2018 4:28 Results for this PM [facility] procedure are in the results section. TRANSFUSE RED BLOOD Routine 10/01/2018 2:48 CELLS PM [facility] [employer] [facility] POC GLUCOSE Routine 10/01/2018 11:22 Results for this AM [facility] procedure are in the results section. PREPARE RBC Routine 10/01/2018 7:41 Results for this AM [facility] procedure are in the results section. TYPE AND SCREEN Routine 10/01/2018 7:41 Results for this AM [facility] procedure are in the results section. POC GLUCOSE Routine 10/01/2018 7:21 Results for this AM [facility] procedure are in the results section. BASIC METABOLIC PANEL Routine 10/01/2018 6:15 Results for this AM [facility] procedure are in the results section. ESTIMATED GFR Routine 10/01/2018 6:15 Results for this AM [facility] [employer] procedure are in the results section. MAGNESIUM LEVEL Routine 10/01/2018 6:15 Results for this AM [facility] [employer] procedure are in the results section. HC COMPLETE BLD COUNT Routine 10/01/2018 6:15 Results for this W/AUTO DIFF AM [facility] procedure are in the results section. POC GLUCOSE Routine 09/30/2018 9:35 Results for this PM [facility] [employer] procedure are in the results section. POC GLUCOSE Routine 09/30/2018 4:28 Results for this PM [facility] [employer] [facility] procedure are in the results section. POC GLUCOSE Routine 09/30/2018 11:16 Results for this AM [facility] [employer] [facility] procedure are in the results section. POC GLUCOSE Routine 09/30/2018 7:43 Results for this AM [facility] [employer] [facility] procedure are in the results section. POC GLUCOSE Routine 09/29/2018 9:01 Results for this PM [facility] [employer] [facility] procedure are in the results section. POC GLUCOSE Routine 09/29/2018 4:36 Results for this PM [facility] [employer] [facility] procedure are in the results section. POC GLUCOSE Routine 09/29/2018 11:24 Results for this AM [facility] [employer] procedure are in the results section. POC GLUCOSE Routine 09/29/2018 7:34 Results for this AM [facility] [employer] procedure are in the results section. ESTIMATED GFR Routine 09/29/2018 6:15 Results for this AM [facility] [employer] procedure are in the results section. BASIC METABOLIC PANEL Routine 09/29/2018 6:15 Results for this AM [facility] [facility] [employer] procedure are in the results section. POC GLUCOSE Routine 09/28/2018 9:00 Results for this PM [facility] procedure are in the results section. POC GLUCOSE Routine 09/28/2018 4:33 Results for this PM [facility] [employer] [facility] procedure are in the results section. POC GLUCOSE Routine 09/28/2018 11:33 Results for this AM [facility] [employer] procedure are in the results section. ESTIMATED GFR Routine 09/28/2018 8:20 Results for this AM [facility] [employer] procedure are in the results section. COMPREHENSIVE METABOLIC Routine 09/28/2018 8:20 Results for this PANEL AM [facility] [facility] [employer] procedure are in the results section. POC GLUCOSE Routine 09/28/2018 7:49 Results for this AM [facility] [employer] procedure are in the results section. POC GLUCOSE Routine 09/27/2018 9:21 Results for this PM [facility] [employer] procedure are in the results section. POC GLUCOSE Routine 09/27/2018 4:28 Results for this PM [facility] [employer] procedure are in the results section. POC GLUCOSE Routine 09/27/2018 11:38 Results for this AM [facility] [employer] [facility] procedure are in the results section. POC GLUCOSE Routine 09/27/2018 8:20 Results for this AM [facility] [employer] procedure are in the results section. POC GLUCOSE Routine 09/27/2018 7:43 Results for this AM [facility] [employer] procedure are in the results section. POC GLUCOSE Routine 09/27/2018 7:41 Results for this AM [facility] [employer] procedure are in the results section. ESTIMATED GFR Routine 09/27/2018 6:25 Results for this AM [facility] [employer] procedure are in the results section. BASIC METABOLIC PANEL Routine 09/27/2018 6:25 Results for this AM [facility] [employer] procedure are in the results section. HC COMPLETE BLD COUNT Routine 09/27/2018 6:25 Results for this W/AUTO DIFF AM [facility] procedure are in the results section. POC GLUCOSE Routine 09/26/2018 8:57 Results for this PM [facility] procedure are in the results section. POC GLUCOSE Routine 09/26/2018 5:38 Results for this PM [facility] procedure are in the results section. POC GLUCOSE Routine 09/26/2018 11:27 Results for this AM [facility] [employer] procedure are in the results section. POC GLUCOSE Routine 09/26/2018 7:56 Results for this AM [facility] [employer] procedure are in the results section. ESTIMATED GFR Routine 09/25/2018 11:10 Results for this PM [facility] procedure are in the results section. COMPREHENSIVE METABOLIC Routine 09/25/2018 11:10 Results for this PANEL PM [facility] procedure are in the results section. HC COMPLETE BLD COUNT Routine 09/25/2018 11:10 Results for this W/AUTO DIFF PM [facility] procedure are in the results section. POC GLUCOSE Routine 09/25/2018 8:38 Results for this PM [facility] procedure are in the results section. POC GLUCOSE Routine 09/25/2018 5:04 Results for this PM [facility] procedure are in the results section. POC GLUCOSE Routine 09/25/2018 10:55 Results for this AM [facility] [facility] [employer] procedure are in the results section. POC GLUCOSE Routine 09/25/2018 8:03 Results for this AM [facility] [employer] procedure are in the results section. ECG 12-LEAD Routine 09/25/2018 6:07 Results for this AM [facility] procedure are in the results section. POC GLUCOSE Routine 09/24/2018 9:41 Results for this PM [facility] [facility] [employer] procedure are in the results section. POC GLUCOSE Routine 09/24/2018 4:20 Results for this PM [facility] procedure are in the results section. POC GLUCOSE Routine 09/24/2018 12:02 Results for this PM [facility] procedure are in the results section. POC GLUCOSE Routine 09/24/2018 7:31 Results for this AM [facility] procedure are in the results section. ESTIMATED GFR Routine 09/24/2018 4:00 Results for this AM [facility] procedure are in the results section. HC COMPLETE BLD COUNT Routine 09/24/2018 4:00 Results for this W/AUTO DIFF AM [facility] procedure are in the results section. BASIC METABOLIC PANEL Routine 09/24/2018 4:00 Results for this AM [facility] procedure are in the results section. PARTIAL THROMBOPLASTIN Routine 09/24/2018 4:00 Results for this TIME (PTT) AM [facility] [facility] [employer] procedure are in the results section. PROTHROMBIN TIME WITH Routine 09/24/2018 4:00 Results for this INR AM [facility] procedure are in the results section. POC GLUCOSE Routine 09/23/2018 4:48 Results for this PM [facility] procedure are in the results section. POC GLUCOSE Routine 09/23/2018 11:15 Results for this AM [facility] [facility] [employer] procedure are in the results section. POC GLUCOSE Routine 09/23/2018 8:59 Results for this AM [facility] [employer] procedure are in the results section. POC GLUCOSE Routine 09/23/2018 6:29 Results for this AM [facility] procedure are in the results section. POC GLUCOSE Routine 09/23/2018 4:18 Results for this AM [facility] procedure are in the results section. XR CHEST 1 VW PORTABLE Routine 09/23/2018 3:58 Results for this AM [facility] procedure are in the results section. ESTIMATED GFR Routine 09/23/2018 3:15 Results for this AM [facility] procedure are in the results section. PARTIAL THROMBOPLASTIN Routine 09/23/2018 3:15 Results for this TIME (PTT) AM [facility] procedure are in the results section. PROTHROMBIN TIME WITH Routine 09/23/2018 3:15 Results for this INR AM [facility] [facility] [employer] procedure are in the results section. PHOSPHORUS LEVEL Routine 09/23/2018 3:15 Results for this AM [facility] procedure are in the results section. MAGNESIUM LEVEL Routine 09/23/2018 3:15 Results for this AM [facility] procedure are in the results section. IONIZED CALCIUM Routine 09/23/2018 3:15 Results for this AM [facility] procedure are in the results section. HC COMPLETE BLD COUNT Routine 09/23/2018 3:15 Results for this W/AUTO DIFF AM [facility] procedure are in the results section. BASIC METABOLIC PANEL Routine 09/23/2018 3:15 Results for this AM [facility] procedure are in the results section. POC GLUCOSE Routine 09/23/2018 2:06 Results for this AM [facility] procedure are in the results section. POC GLUCOSE Routine 09/23/2018 12:46 Results for this AM [facility] procedure are in the results section. POC GLUCOSE Routine 09/22/2018 10:28 Results for this PM [facility] procedure are in the results section. VANCOMYCIN LEVEL, Timed 09/22/2018 10:20 Results for this TROUGH PM [facility] procedure are in the results section. POC GLUCOSE Routine 09/22/2018 7:57 Results for this PM [facility] [employer] procedure are in the results section. POC GLUCOSE Routine 09/22/2018 5:04 Results for this PM [facility] [employer] procedure are in the results section. HC COMPLETE BLD COUNT Routine 09/22/2018 3:55 Results for this W/AUTO DIFF PM [facility] procedure are in the results section. POC GLUCOSE Routine 09/22/2018 2:41 Results for this PM [facility] [facility] [employer] procedure are in the results section. SURGICAL PATHOLOGY Routine 09/22/2018 2:34 Results for this REQUEST PM [facility] [employer] [facility] procedure are in the results section. NJ AN ELECTIVE Routine 09/22/2018 1:05 SUPRAGLOTTIC AIRWAY PM [facility] [employer] [facility] Procedure Note - Dre Gil CRNA - 09/22/2018 1:05 PM [facility] [facility] [employer] Airway Date/Time: 09/22/2018 12:49 PM Performed by: Dre Gil CRNA Authorized by: Jerad Jacques MD Location: OR Urgency: Elective Difficult Airway: No Anesthesiologist: Wilmer Anaya MD Resident/KRAFT DIGESTER OPERATOR/AA: Dre Gil CRNA Performed by: anesthesiologist and resident/KRAFT DIGESTER OPERATOR/AA Preoxygenated with 100% O2: Yes C-spine Precautions Maintained Throughout: Yes Mask Ventilation: Easy mask Final Airway Type: Supraglottic airway Final LMA: Classic LMA Size: 3 Number of Attempts at Approach: 1 ECHOCARDIOGRAM 2D COMPLETE W Routine 09/22/2018 12:40 PM [employer] Results for this MMODE SPECTRAL COLOR DOPPLER procedure are in the (90935) results section. POC GLUCOSE Routine 09/22/2018 12:13 PM [facility] [facility] [employer] POC GLUCOSE Routine 09/22/2018 11:59 AM [facility] [facility] [employer] IN[employer] POC GLUCOSE Routine 09/22/2018 9:56 AM [facility] [facility] [employer] IN[employer] XR CHEST 1 VW PORTABLE Routine 09/22/2018 8:59 AM [facility] IN[employer]CTOR PROTHROMBIN TIME WITH INR STAT 09/22/2018 8:25 AM [facility] POC GLUCOSE Routine 09/22/2018 8:06 AM [facility] POC GLUCOSE Routine 09/22/2018 6:02 AM [facility] [employer] INSTRUCTOR POC GLUCOSE Routine 09/22/2018 4:22 AM [facility] AND [employer] INSTRUCTOR ESTIMATED GFR Routine 09/22/2018 3:30 AM [facility] [employer] INSTRUCTOR MAGNESIUM LEVEL Routine 09/22/2018 3:30 AM [facility] [employer]CTOR IONIZED CALCIUM Routine 09/22/2018 3:30 AM [facility] [employer] INSTRUCTOR BASIC METABOLIC PANEL Routine 09/22/2018 3:30 AM [facility] [facility] [employer] IN[employer] HC COMPLETE BLD COUNT W/AUTO Routine 09/22/2018 3:30 AM [facility] Results for this DIFF procedure are in the results section. POC GLUCOSE Routine 09/22/2018 2:51 AM [facility] [facility] [employer] POC GLUCOSE Routine 09/22/2018 1:13 AM [facility] POC GLUCOSE Routine 09/21/2018 11:09 PM [facility] INSTRUCTOR POC GLUCOSE Routine 09/21/2018 8:47 PM [facility] AND [employer] INSTRUCTOR US RENAL Routine 09/21/2018 7:35 PM [facility] INSTRUCTOR POC GLUCOSE Routine 09/21/2018 6:50 PM [facility] INSTRUCTOR POC GLUCOSE Routine 09/21/2018 5:08 PM [facility] AND [employer] INSTRUCTOR LACTIC ACID LEVEL Routine 09/21/2018 5:00 PM [facility] INSTRUCTOR OCCULT BLOOD, STOOL Routine 09/21/2018 4:08 PM [facility] IN[employer]CTOR POC GLUCOSE Routine 09/21/2018 4:03 PM [facility] AND [employer] INSTRUCTOR TRANSFUSE RED BLOOD CELLS Routine 09/21/2018 3:31 PM [facility] INSTRUCTOR POC GLUCOSE Routine 09/21/2018 2:55 PM [facility] INSTRUCTOR POC GLUCOSE Routine 09/21/2018 1:29 PM [facility] [employer] INSTRUCTOR CONSULT TO OSTOMY CARE NURSE Routine 09/21/2018 1:12 PM [facility] POC GLUCOSE Routine 09/21/2018 12:24 PM [facility] AND [employer] INSTRUCTOR US DUPLEX ARTERIAL LOWER STAT 09/21/2018 11:35 AM [facility] [facility] [employer] Results for this EXTREMITY RIGHT procedure are in the results section. POC GLUCOSE Routine 09/21/2018 11:25 AM [facility] [facility] [employer] POC GLUCOSE Routine 09/21/2018 10:50 AM [facility] AND [employer] INSTRUCTOR TROPONIN Routine 09/21/2018 10:50 AM [facility] [employer] INSTRUCTOR HEPATIC FUNCTION PANEL Routine 09/21/2018 10:50 AM [facility] [employer] IN[employer] HC COMPLETE BLD COUNT W/AUTO Routine 09/21/2018 10:50 AM [facility] [employer] Results for this DIFF procedure are in the results section. LACTIC ACID LEVEL Routine 09/21/2018 10:50 AM [facility] [employer] INSTRUCTOR ESTIMATED GFR Routine 09/21/2018 10:28 AM [facility] [employer] INSTRUCTOR BASIC METABOLIC PANEL Routine 09/21/2018 10:28 AM [facility] [employer]STRUCTOR POC GLUCOSE Routine 09/21/2018 9:51 AM [facility] [facility] [employer] INSTRUCTOR POC GLUCOSE Routine 09/21/2018 9:07 AM [facility] INSTRUCTOR TRANSFUSE RED BLOOD CELLS Routine 09/21/2018 9:06 AM [facility] [employer] IN[employer]CTOR CHLORIDE LEVEL, URINE, Routine 09/21/2018 8:44 AM [facility] [employer] Results for this RANDOM procedure are in the results section. POTASSIUM, URINE, RANDOM Routine 09/21/2018 8:44 AM [facility] [employer]CTOR OSMOLALITY, URINE Routine 09/21/2018 8:44 AM [facility] [employer] INSTRUCTOR PROTEIN, URINE, RANDOM Routine 09/21/2018 8:44 AM [facility] AND [employer] INSTRUCTOR SODIUM LEVEL, URINE, RANDOM Routine 09/21/2018 8:44 AM [facility] [employer] INSTRUCTOR CREATININE LEVEL, URINE, Routine 09/21/2018 8:44 AM [facility] [employer] Results for this RANDOM procedure are in the results section. POC GLUCOSE Routine 09/21/2018 8:07 AM [facility] INSTRUCTOR POC GLUCOSE Routine 09/21/2018 7:41 AM [facility] [facility] [employer] INSTRUCTOR CONSULT TO OSTOMY CARE NURSE Routine 09/21/2018 7:18 AM [facility] AND [employer] INSTRUCTOR LACTIC ACID LEVEL, SEPSIS - Timed 09/21/2018 7:00 AM [facility] [facility] [employer] Results for this NOW AND REPEAT 2X EVERY 3 procedure are in the HOURS results section. POC GLUCOSE Routine 09/21/2018 6:43 AM [facility] [facility] [employer]CTOR POC GLUCOSE Routine 09/21/2018 5:21 AM [facility] [facility] [employer] IN[employer]CTOR POC GLUCOSE Routine 09/21/2018 4:32 AM [facility] [employer] INSTRUCTOR GRAM STAIN Routine 09/21/2018 4:20 AM [facility] [employer] INSTRUCTOR ANAEROBIC CULTURE Routine 09/21/2018 4:20 AM [facility] [employer] INSTRUCTOR AEROBIC CULTURE Routine 09/21/2018 4:20 AM [facility] [employer] ECG 12-LEAD STAT 09/21/2018 4:10 AM [facility] [facility] [employer]CTOR POC GLUCOSE Routine 09/21/2018 4:06 AM [facility] [employer] IN[employer]CTOR IONIZED CALCIUM Routine 09/21/2018 4:00 AM [facility] [facility] [employer] INSTRUCTOR PARTIAL THROMBOPLASTIN TIME Routine 09/21/2018 4:00 AM [facility] [employer] Results for this (PTT) procedure are in the results section. LACTIC ACID LEVEL Routine 09/21/2018 4:00 AM [facility] [employer] INSTRUCTOR MAGNESIUM LEVEL Routine 09/21/2018 4:00 AM [facility] [employer] INSTRUCTOR PHOSPHORUS LEVEL Routine 09/21/2018 4:00 AM [facility] AND FITNESS INSTRUCTOR ESTIMATED GFR Routine 09/21/2018 4:00 AM [facility] [employer] INSTRUCTOR BASIC METABOLIC PANEL Routine 09/21/2018 4:00 AM [facility] INSTRUCTOR PROTHROMBIN TIME WITH INR Routine 09/21/2018 4:00 AM [facility] IN[employer] HC COMPLETE BLD COUNT W/AUTO Routine 09/21/2018 4:00 AM [facility] Results for this DIFF procedure are in the results section. POC GLUCOSE Routine 09/21/2018 3:48 AM [facility] [employer]CTOR PREPARE RBC Routine 09/20/2018 11:35 PM [facility] [facility] [employer]CTOR PREPARE RBC Routine 09/20/2018 11:35 PM [facility] [employer] INSTRUCTOR TYPE AND SCREEN Routine 09/20/2018 11:35 PM [facility] [employer]CTOR POC GLUCOSE Routine 09/20/2018 11:22 PM [facility] [employer] IN[employer]CTOR URINALYSIS, AUTOMATED WITH Routine 09/20/2018 11:16 PM [facility] [employer] Results for this MICROSCOPY procedure are in the results section. BLOOD CULTURE, AEROBIC & Routine 09/20/2018 9:35 PM [facility] [employer] Results for this ANAEROBIC procedure are in the results section. XR FOOT 2 VW RIGHT Routine 09/20/2018 9:28 PM [facility] AND FITNESS INSTRUCTOR LACTIC ACID LEVEL, SEPSIS - Timed 09/20/2018 9:15 PM [facility] [employer] Results for this NOW AND REPEAT 2X EVERY 3 procedure are in the HOURS results section. BLOOD CULTURE, AEROBIC & Routine 09/20/2018 9:15 PM [facility] [employer] Results for this ANAEROBIC procedure are in the results section. ESTIMATED GFR Routine 09/20/2018 6:50 PM [facility] AND [employer] INSTRUCTOR PROTHROMBIN TIME WITH INR Routine 09/20/2018 6:50 PM [facility] [employer] INSTRUCTOR HC COMPLETE BLD COUNT W/AUTO Routine 09/20/2018 6:50 PM [facility] [employer] Results for this DIFF procedure are in the results section. BASIC METABOLIC PANEL Routine 09/20/2018 6:50 PM [facility] [employer] INSTRUCTOR POC GLUCOSE Routine 09/20/2018 5:23 PM [facility] AND [employer] INSTRUCTOR after 04/23/2018 Results Echocardiogram complete w contrast and 3D if needed (11/18/2018) Narrative Performed At POC glucose (10/03/2018 11:17 AM [facility] AND [employer]CTOR)Only the most recent of80 resultswithin the time period is included. POC glucose 201 (H) 65 - 99 mg/dL CHANTAL JIN Comment: [facility] RN Notified Meter ID: [id number] Crusher Tender: Santos Specimen Performing Organization Address City/State/Zipcode Phone Number [facility] DEPARTMENT OF PATHOLOGY [address] [place] [address] AND GENOMIC MEDICINE [facility] [id number] Estimated GFR (10/03/2018 5:00 AM HE[employer] AND [employer] INSTRUCTOR)Only the most recent of14 resultswithin the time period is included. Pathologist [facility] Estimated GFR 11 (A) mL/min/1.73 CHANTAL JIN Comment: m2 [facility] G1 >=90 Normal or high G2 60-89Mildly decreased [id number] to moderately decreased L0r66-22Nzfhosmivp to severely decreased G4 15-29Severely decreased G5 <15Kidney failure The eGFR was calculated using the Chronic Kidney Disease Epidemiology Collaboration (CKD-EPI) equation. Interpretation is based on recommendations of the National Kidney Foundation-Kidney Disease Outcomes Quality Initiative (NKF-KDOQI) published in 2014. Specimen Plasma specimen Performing Organization Address City/State/Zipcode Phone Number [facility] DEPARTMENT OF PATHOLOGY [id number] [place] [address] Basic metabolic panel (10/03/2018 5:00 AM [facility] AND [employer]STRUCTOR)Only the most recent of12 resultswithin the time period is included. Sodium 136 135 - 148 mEq/L [facility] [facility] Potassium 3.8 3.5 - 5.0 mEq/L [facility] Chloride 105 98 - 112 mEq/L [facility] CO2 15 (L) 24 - 31 mEq/L [facility] Anion gap 16@ANIO (H) 7 - 15 mEq/L [facility] BUN 59 (H) 8 - 23 mg/dL [facility] Creatinine 3.66 (H) 0.50 - 0.90 mg/dL [facility] Glucose 123 (H) 65 - 99 mg/dL [facility] Calcium 7.9 (L) 8.8 - 10.2 mg/dL [facility] Specimen Plasma specimen Performing Organization Address City/[facility]/Zipcode Phone Number [facility] DEPARTMENT OF PATHOLOGY [address] [place] [address] CBC with platelet and differential (10/02/2018 10:06 PM HEALTH AND FITNESS INSTRUCTOR)Only the most recent of12 resultswithin the time period is included. WBC 9.8 4.5 - 11.0 k/uL [facility] RBC 2.85 (L) 4.20 - 5.50 [facility] m/uL [facility] HGB 8.1 (L) 12.0 - 16.0 [facility] g/dL [facility] HCT 25.8 (L) 37.0 - 47.0 % [facility] MCV 90.5 82.0 - 100.0 fL [facility] MCH 28.4 27.0 - 34.0 pg [facility] MCHC 31.4 31.0 - 37.0 [facility] g/dL [facility] RDW - SD 53.8 37.0 - 55.0 fL [facility] MPV 10.3 6.9 - 11.0 fL [facility] Platelet count 265 150 - 400 K/uL [facility] Nucleated RBC 0.00 /100 WBC [facility] Neutrophils 75.1 (H) 39.0 - 69.0 % [facility] Lymphocytes 14.9 (L) 25.0 - 45.0 % [facility] Monocytes 6.7 0.0 - 10.0 % [facility] Eosinophils 2.3 0.0 - 5.0 % [facility] Basophils 0.6 0.0 - 1.0 % [facility] Immature granulocytes 0.4 0.0 - 1.0 % [facility] Specimen Blood Performing Organization Address City/State/Zipcode Phone Number [facility] DEPARTMENT OF PATHOLOGY [address] [place] [address] [address] Arterial blood gas (10/02/2018 7:33 AM HEALTH AND FITNESS INSTRUCTOR) pH, arterial 7.39 7.35 - 7.45 [facility] pCO2, arterial 25 (L) 35 - 45 mmHg [facility] pO2, arterial 106 (H) 80 - 90 mmHg [facility] Bicarbonate, 14.5 (L) 21.0 - 28.0 [facility] arterial mmol/L [facility] Base excess, -9 (L) -2 - 2 mEq/L [facility] O2 saturation, 97 95 - 100 % [facility] Specimen Blood Performing Organization Address City/State/Zipcode Phone Number [facility] DEPARTMENT OF PATHOLOGY [address] [place] [address] [place] [address] HOSPITAL Transfuse RBC (10/01/2018 2:48 PM HEALTH AND FITNESS INSTRUCTOR)Only the most recent of3 resultswithin the time period is included.Prepare RBC, 1 Units (10/01/2018 7:41 AM HEALTH AND FITNESS INSTRUCTOR)Only the most recent of3 resultswithin the time period is included. Product name Red Blood Cells [facility] -1, Leukored [facility] Unit number [id number] [facility] Product code [id number] [facility] Dispense status Transfused [facility] Blood expiration [id number] [facility] date [facility] Blood type code 8400 [facility] Blood type AB POSITIVE [facility] Specimen Blood Performing Organization Address City/[facility] Phone Number [facility] DEPARTMENT OF PATHOLOGY [address] [place] [address] [place] [address] HOSPITAL Type and screen (10/01/2018 7:41 AM HEALTH AND FITNESS INSTRUCTOR)Only the most recent of2 resultswithin the time period is included. ABO grouping AB [facility] Rh type POS [facility] Antibody screen (gel) NEG [facility] Specimen Blood Performing Organization Address City/[facility] Phone Number [facility] DEPARTMENT OF PATHOLOGY [address] [place] [address] [place] [address] HOSPITAL Magnesium level (10/01/2018 6:15 AM HEALTH AND FITNESS INSTRUCTOR)Only the most recent of4 resultswithin the time period is included. Magnesium 2.0 1.6 - 2.4 mg/dL [facility] Specimen Plasma specimen Performing Organization Address City/[facility]/Zipcode Phone Number [facility] DEPARTMENT OF PATHOLOGY [address] [place] [address] Comprehensive metabolic panel (09/28/2018 8:20 AM HEALTH AND FITNESS INSTRUCTOR)Only the most recent of2 resultswithin the time period is included. Sodium 136 135 - 148 mEq/L [facility] Potassium 3.6 3.5 - 5.0 mEq/L [facility] Chloride 106 98 - 112 mEq/L [facility] CO2 16 (L) 24 - 31 mEq/L [facility] Anion gap 14@ANIO 7 - 15 mEq/L [facility] BUN 63 (H) 8 - 23 mg/dL [facility] Creatinine 4.09 (H) 0.50 - 0.90 [facility] mg/dL [facility] Glucose 86 65 - 99 mg/dL [facility] Calcium 7.8 (L) 8.8 - 10.2 [facility] mg/dL [facility] Protein 5.9 (L) 6.3 - 8.3 g/dL [facility] Albumin 2.2 (L) 3.5 - 5.0 g/dL [facility] A/G ratio 0.6 (L) 0.7 - 3.8 [facility] Alkaline phosphatase 61 35 - 104 U/L [facility] AST 13 10 - 35 U/L [facility] ALT <5 (A) 5 - 50 U/L [facility] Total bilirubin <0.2 0.2 - 1.2 mg/dL [facility] Specimen Plasma specimen Performing Organization Address City/State/Zipcode Phone Number [facility] DEPARTMENT OF PATHOLOGY [address] [place] [address] AND GENOMIC MEDICINE [facility] [address] [place] [address] HOSPITAL ECG 12 lead (09/25/2018 6:07 AM HEALTH AND FITNESS INSTRUCTOR)Only the most recent of2 resultswithin the time period is included. Ventricular rate 71 [facility] Atrial rate 84 [facility] QRSD interval 156 [facility] QT interval 386 [facility] QTC interval 419 [facility] QRS axis 1 124 [facility] T wave axis 42 [facility] EKG impression Electronic ventricular [facility] MUSE pacemaker-In automated comparison with ECG of 25-SEP-2018 06:05,-Electronic ventricular pacemaker has replaced Atrial fibrillation-Electronic ally Signed By Colin Velazquez MD ([id number]) on 09/29/2018 12:09:39 AM Specimen Narrative Performed At Performing Organization Address City/State/Zipcode Phone Number [facility] MUSE [address] [place] [address] Partial thromboplastin time, activated (09/24/2018 4:00 AM HEALTH AND FITNESS INSTRUCTOR)Only the most recent of3 resultswithin the time period is included. PTT 51.3 (H) 23.0 - 36.0 [facility] Comment: [facility] PTT therapeutic range for unfractionated heparin is HOSPITAL 61.0-112.0 seconds which corresponds to Anti-Xa 0.3-0.7 U/ml. Specimen Blood Performing Organization Address City/[facility]/Zipcode Phone Number [facility] DEPARTMENT OF PATHOLOGY [id number] [place] [address] Prothrombin time with INR (09/24/2018 4:00 AM HEALTH AND FITNESS INSTRUCTOR)Only the most recent of5 resultswithin the time period is included. Prothrombin time 17.4 (H) 11.5 - 14.5 [facility] INR 1.5 [facility] Comment: DAVIN WATTS [facility] Normalized Ratio (INR) is a therapeutic [facility] monitoring tool for patients who are stable on oral anticoagulant therapy. An INR of 2.0-3.0 is suggested for deep vein thrombosis/pulmonary embolism. Specimen Blood Performing Organization Address [facility]/Zipcode Phone Number [facility] DEPARTMENT OF PATHOLOGY [id number] [place] [address] XR Chest 1 Vw Portable (09/23/2018 3:58 AM HEALTH AND FITNESS INSTRUCTOR)Only the most recent of2 resultswithin the time period is included. Specimen Narrative Performed At EXAMINATION:XR CHEST 1 VW PORTABLE [facility] CLINICAL HISTORY: 83 years Femalepost-op COMPARISON:09/22/2018 IMPRESSION: 1.A left subclavian biventricular pacemaker/defibrillator is present. 2.The cardiomediastinal silhouette is slightly enlarged. 3.Mild increased interstitial opacities persist. There is minimal retrocardiac volume loss and tiny bilateral pleural effusions. 4.Regional skeletal structures are diffusely osteopenic. [facility]-[id number] Procedure Note Interface, Radiology Results Incoming - 09/23/2018 5:47 AM HEALTH AND FITNESS INSTRUCTOR EXAMINATION: XR CHEST 1 VW PORTABLE CLINICAL HISTORY: 83 years Female post-op COMPARISON: 09/22/2018 IMPRESSION: 1. A left subclavian biventricular pacemaker/defibrillator is present. 2. The cardiomediastinal silhouette is slightly enlarged. 3. Mild increased interstitial opacities persist. There is minimal retrocardiac volume loss and tiny bilateral pleural effusions. 4. Regional skeletal structures are diffusely osteopenic. [facility]-[id number] Performing Organization Address City/[facility]/Zipcode Phone Number [facility] [address] [place] [address] Phosphorus level (09/23/2018 3:15 AM HEALTH AND FITNESS INSTRUCTOR)Only the most recent of2 resultswithin the time period is included. Phosphorus 4.4 2.4 - 4.5 mg/dL [facility] Specimen Plasma specimen Performing Organization Address City/[facility] Phone Number [facility] DEPARTMENT OF PATHOLOGY [address] [place] [address] Ionized calcium (09/23/2018 3:15 AM HEALTH AND FITNESS INSTRUCTOR)Only the most recent of3 resultswithin the time period is included. pH 7.30 [facility] Ionized calcium 1.13 1.11 - 1.32 mmol/L [facility] Specimen Plasma specimen Performing Organization Address [facility] Phone Number [facility] DEPARTMENT OF PATHOLOGY [address] [place] [address] Vancomycin level, trough (09/22/2018 10:20 PM HEALTH AND FITNESS INSTRUCTOR) Vancomycin, 7.1 (L) 10.0 - 20.0 [facility] trough Comment: ug/mL [facility] Therapeutic Ranges: HOSPITAL Peak30.0 - 40.0 ug/mL Mjorwl02.0 - 20.0 ug/mL Specimen Blood Performing Organization Address City/[facility]ode Phone Number [facility] DEPARTMENT OF PATHOLOGY [address] [place] [address] Surgical pathology request (09/22/2018 2:34 PM HEALTH AND FITNESS INSTRUCTOR) [facility] DEPARTMENT OF PATHOLOGY AND GENOMIC MEDICINE Surgical pathology See link below [facility] DEPARTMENT OF report for PDF Lab PATHOLOGY AND Report GENOMIC MEDICINE Result status This is Final [facility] DEPARTMENT OF Report for PATHOLOGY AND [id number] GENOMIC MEDICINE Specimen Performing Organization Address City/State/Zipcode Phone Number [facility] DEPARTMENT OF PATHOLOGY [address] [place] [address] AND GENOMIC MEDICINE Echocardiogram complete w contrast and 3D if needed (09/22/2018 12:40 PM HEALTH AND FITNESS INSTRUCTOR) Ao Root Diameter 3.05 cm [facility] [...] [facility] E/A ratio 4.32 [facility] Specimen Narrative Performed At The left ventricular chamber size is normal. Left ventricular systolic [facility] function is moderately impaired. Left Ventricular ejection fraction is 30 - 35%. Normal left ventricular wall thickness. [id number] aortic regurgitation. Mild mitral valve regurgitation. RVSP is 42-47 mm Hg with estimated RAP of 10-15 mm Hg. Performing Organization Address City/State/[facility]ode Phone Number [facility] [address] [place] [address] US Renal (09/21/2018 7:35 PM HEALTH AND FITNESS INSTRUCTOR) Specimen Narrative Performed At EXAMINATION:US RENAL [facility] CLINICAL [...] decompressed with Zarco catheter in the lumen. [id number] Procedure Note Hm Interface, Radiology Results Incoming - 09/22/2018 12:32 AM HEALTH AND FITNESS INSTRUCTOR EXAMINATION: US RENAL CLINICAL HISTORY: Renal failure [...] decompressed with Zarco catheter in the lumen. [facility]-[id number] Performing Organization Address City/[facility]/Zipcode Phone Number [facility] [address] [place] [address] Lactic acid level (09/21/2018 5:00 PM HEALTH AND FITNESS INSTRUCTOR)Only the most recent of3 resultswithin the time period is included. Lactic acid 1.0 0.5 - 2.2 mmol/L [facility] Specimen Plasma specimen Performing Organization Address [facility]ode Phone Number [facility] DEPARTMENT OF PATHOLOGY [id number] [place] [address] Occult blood, stool (09/21/2018 4:08 PM HEALTH AND FITNESS INSTRUCTOR) Occult blood, Negative for occult blood. [facility] stool Comment: [facility] Specimen Information [facility] Specimen Source: Stool Specimen Site: Nonpreserved Specimen Stool - Nonpreserved Performing Organization Address [facility]ode Phone Number [facility] DEPARTMENT OF PATHOLOGY [id number] [place] [address] Us duplex arterial lower extremity (09/21/2018 11:35 AM HEALTH AND FITNESS INSTRUCTOR) Specimen Narrative Performed At EXAM: US DUPLEX ARTERIAL [...] Mid: Monophasic Distal: Monophasic DORSALIS PEDIS: Monophasic [id number] Procedure Note Hm Interface, Radiology Results Incoming - 09/21/2018 11:43 AM HEALTH AND FITNESS INSTRUCTOR EXAM: US DUPLEX ARTERIAL LOWER EXTREMITY RIGHT [...] Mid: Monophasic Distal: Monophasic DORSALIS PEDIS: Monophasic [id number] Performing Organization Address [facility]d Phone Number [facility] [address] [place] [address] Troponin (09/21/2018 10:50 AM HEALTH AND FITNESS INSTRUCTOR) Pathologist [facility] Troponin <0.30 0.00 - 0.30 [facility] Comment: ng/mL [facility] 0.11 - 1.49 ng/mlMay indicate increased risk of acute coronary syndrome. >=1.5 ng/mlConsistent with acute myocardial infarction. The diagnostic value of a single normal or non-diagnostic result is questionable.Serial samples at 2-6 hour intervals are required to rule out acute myocardial injury. Specimen Plasma specimen Performing Organization Address City/[facility]/Zipcode Phone Number [facility] DEPARTMENT OF PATHOLOGY [address] [place] [address] AND GENOMIC MEDICINE [facility] [address] Hepatic function panel (09/21/2018 10:50 AM HEALTH AND FITNESS INSTRUCTOR) [facility] Albumin 2.5 (L) 3.5 - 5.0 g/dL [facility] Total bilirubin <0.2 0.2 - 1.2 mg/dL [facility] Bilirubin direct <0.2 0.0 - 0.3 mg/dL [facility] Alkaline phosphatase 75 35 - 104 U/L [facility] Protein 7.1 6.3 - 8.3 g/dL [facility] ALT <5 (A) 5 - 50 U/L [facility] AST 12 10 - 35 U/L [facility] Specimen Plasma specimen Performing Organization Address City/[facility] Phone Number [facility] DEPARTMENT OF PATHOLOGY [address] [place] [address] [place] [address] HOSPITAL Sodium level, urine, random (09/21/2018 8:44 AM HEALTH AND FITNESS INSTRUCTOR) Total volume, urine 40 mL [facility] Urine sodium 64 mEq/L [facility] Urine sodium excretion 3Comment: [facility] YARSANISM Varies with [facility] diet. HOSPITAL Specimen Urine Performing Organization Address [facility]ode Phone Number [facility] DEPARTMENT OF PATHOLOGY [address] [place] [address] [address] Protein, urine, random (09/21/2018 8:44 AM HEALTH AND FITNESS INSTRUCTOR) Total volume, urine 40 mL [facility] Urine protein 11 mg/dL [facility] Urine protein excretion 4 mg/vol [facility] Specimen Urine Performing Organization Address City/[facility] Phone Number [facility] DEPARTMENT OF PATHOLOGY [address] [place] [address] AND GENOMIC MEDICINE [address] Potassium, urine, random (09/21/2018 8:44 AM HEALTH AND FITNESS INSTRUCTOR) Total volume, urine 40 mL [facility] Urine potassium 13.1 mEq/L [facility] Urine potassium 0.5Comment: [facility] YARSANISM excretion Varies with [facility] diet. HOSPITAL Specimen Urine Performing Organization Address City/[facility]/Zipcode Phone Number [facility] DEPARTMENT OF PATHOLOGY [address] [place] [address] AND GENOMIC MEDICINE [place] YARSANISM[address] Osmolality, urine (09/21/2018 8:44 AM HEALTH AND FITNESS INSTRUCTOR) Osmolality, urine 332 50 - 1,400 mOsm/kg [facility] Specimen Urine Performing Organization Address City/[facility]/Zipcode Phone Number [facility] DEPARTMENT OF PATHOLOGY [address] [place] [address] AND GENOMIC MEDICINE [address] Creatinine level, urine, random (09/21/2018 8:44 AM HEALTH AND FITNESS INSTRUCTOR) Total volume, urine 40 mL [facility] Urine creatinine 35 mg/dL [facility] Urine creatinine excretion 14 mg/vol [facility] Specimen Urine Performing Organization Address [facility]ode Phone Number [facility] DEPARTMENT OF PATHOLOGY [address] [place] [address] Chloride level, urine, random (09/21/2018 8:44 AM HEALTH AND FITNESS INSTRUCTOR) Total volume, urine 40 mL [facility] Urine chloride 49 mEq/L [facility] Urine chloride 2Comment: [facility] YARSANISM excretion Varies with [facility] diet. HOSPITAL Specimen Urine Performing Organization Address City/[facility]ode Phone Number [facility] DEPARTMENT OF PATHOLOGY [address] [place] [address] [address] Lactic acid level, SEPSIS - Now and repeat 2x every 3 hours (09/21/2018 7:00 AM HEALTH AND FITNESS INSTRUCTOR)Only the most recent of2 resultswithin the time period is included. Lactic acid 1.9 0.5 - 2.2 mmol/L [facility] Specimen Plasma specimen Performing Organization Address City/[facility]/Zipcode Phone Number [facility] DEPARTMENT OF PATHOLOGY [address] [place] [address] [place] [address] HOSPITAL Aerobic culture (09/21/2018 4:20 AM HEALTH AND FITNESS INSTRUCTOR) Aerobic culture Diphtheroids [facility] (A) Comment: Specimen Information Specimen Source: Wound Specimen Site: right foot Aerobic culture Enterococcus faecalis [facility] isolate [facility] The performance characteristics of this assay on this isolate were validated by the Microbiology Laboratory at [facility].This source has not been approved by the .. Food and Drug Administration.The results are not intended to be used as the sole means for clinical diagnosis or patient management.The Microbiology Laboratory is authorized under the clinical Laboratory Improvement Amendments of 1988 (CLIA-88) to perform high complexity testing. The performance characteristics of this assay on this isolate were validated by the Microbiology Laboratory at [facility].This source has not been approved [...] PEDRO 1 mcg/mL: Susceptible Performing Organization Address City/[facility] Phone Number [facility] DEPARTMENT OF PATHOLOGY AND [address] [place] [phone] Gram stain (09/21/2018 4:20 AM HEALTH AND FITNESS INSTRUCTOR) Gram stain isolate Rare WBC's [facility] Occasional Gram positive [facility]PITAL Occasional Gram positive rods Comment: Specimen Information Specimen Source: Wound Specimen Site: right foot Specimen Wound Performing Organization Address City/[facility] Phone Number [facility] DEPARTMENT OF PATHOLOGY AND [address] [place] [address] Anaerobic culture (09/21/2018 4:20 AM HEALTH AND FITNESS INSTRUCTOR) Anaerobic culture Diphtheroids [facility] isolate The performance characteristics of this assay on this isolate HOSPITAL were validated by the Microbiology Laboratory at [facility].This source has not been approved [...] left foot Specimen Wound Performing Organization Address City/[facility]/Zipcode Phone Number [facility] DEPARTMENT OF PATHOLOGY AND [address] [place] [phone] [place] [address] [place] [id number] Urinalysis, automated with microscopy (09/20/2018 11:16 PM HEALTH AND FITNESS INSTRUCTOR) Color, UA Yellow [facility] Appearance, UA Sl Cloudy [facility] Specific gravity, UA 1.010 1.001 - 1.030 [facility] pH, UA 5.0 5.0 - 9.0 [facility] Protein, UA Negative Negative [facility] Glucose, UA Negative Negative [facility] Ketones, UA Negative Negative [facility] Bilirubin, UA Negative Negative [facility] Blood, UA Negative Negative [facility] Nitrite, UA Negative Negative [facility] Urobilinogen, UA <2.0 <2.0 E.U./dL [facility] Leukocyte esterase, Large (A) Negative [facility] Epithelial cells, UA 3 /HPF [facility] Round epithelial <1 0 - 5 /HPF [facility] cells, [facility] WBC, UA 79 (H) 0 - 4 /HPF [facility] RBC, UA None seen 0 - 5 /HPF [facility] Bacteria, UA Few None seen [facility] Calcium oxalate Few [facility] crystals, [facility] WBC clumps, UA Few (A) [facility] Yeast, UA None seen [facility] Yeast with None seen [facility] pseudohyphae, [facility] Specimen Urine Performing Organization Address City/State/Zipcode Phone Number [facility] DEPARTMENT OF PATHOLOGY [address] [place] [address] AND [facility] [address] [facility] [place] [address] HOSPITAL Blood culture, aerobic & anaerobic (09/20/2018 9:35 PM HEALTH AND FITNESS INSTRUCTOR)Only the most recent of2 resultswithin the time period is included. Blood culture No growth after 5 days of incubation. [facility] isolate Comment: HOSPITAL Specimen Information Specimen Source: Blood Specimen Site: Forearm, left Specimen Blood - Forearm, left Performing Organization Address City/State/Zipcode Phone Number [facility] DEPARTMENT OF PATHOLOGY AND [address] [place] [id number] [facility] [address] [place] [id number] XR Foot 2 Vw Right (09/20/2018 9:28 PM HEALTH AND FITNESS INSTRUCTOR) Specimen Narrative Performed At EXAMINATION:XR FOOT 2 VW [...] radiopaque foreign body or soft tissue gas. [facility]-[id number] Procedure Note Interface, Radiology Results Incoming - 09/20/2018 10:00 PM HEALTH AND FITNESS INSTRUCTOR EXAMINATION: XR FOOT 2 VW RIGHT CLINICAL [...] radiopaque foreign body or soft tissue gas. [facility]-[id number] Performing Organization Address City/State/Zipcode Phone Number [facility] [address] [place] [address] after 04/23/2018 Insurance Payer Benefit Plan / Subscriber ID Effective Dates Phone Address Type Group MEDICAID MEDICAID xxxxxxxxx 2016-Present Medicaid MEDICARE MEDICARE PART A xxxxxxxxxxx 1994-Present [place], [place] Medicare AND B Advance Directives For more information, please contact: [phone] Type Date Recorded Patient Software Educator Explanation Advance Directives, Living Will and Medical Power of Client Server Developer Advance Directives, 11/14/2017 2:19 PM Living Will and Medical Power of Client Server Developer
--- OUTSIDE RECORDS SUMMARY | 2019-04-24 08:03 | XMS REPORT ---
:1935 [facility] [address] [place] [address] [address]. [address] [place] [address] Care Team Providers Name Role Phone HARDIK [...] 2017-09-10 Outpatient Telma [facility] [id number] 18:56:00 18:56:00 HARDIK 2017-07-01 2017-07-04 Inpatient DAWOOD CARVALHO TELE [id number] 22:15:00 15:46:00 BYRON Results Test Description Test Time Test Comments Text Results Atomic Results Result Comments Sed Rate ESR ([place]) 2017-09-10 22:33:00 Test Item Value Reference Range Comments ESR (test code=HESR) 44 mm/Hr 0-20 CBC with [id number] 20:59:00 Test Item Value Reference Range Comments [...] Lymph Abs (test code=ALYMPH) 1.6 K/cumm 0.5-4.6 [place] Abs (test code=AMONO) 0.5 K/cumm 0.0-1.2 Eos Abs (test code=AEOS) 0.10 K/cumm 0.00-0.74 Baso Abs (test code=ABASO) 0.0 K/cumm 0.00-0.21 Hypochromic (test code=HYPO) Slight Lipid [id number] 20:09:00 Test Item Value Reference Range Comments Cholesterol (test 208 mg/dL 0-200 code=CHOL) Triglycerides (test 178 mg/dL 9-200 code=TRIG) HDL (test code=HDL) 45 mg/dL 50-60 Chol/HDL (test 4.6 Ratio 0.0-4.4 code=CHOLPHDL) LDL, Calculated (test 127 mg/dL 0-130 (NOTE)RISK OF HEART code=LDLC) DISEASEPublished by German Heart AssociationAnalyte Optimal Boderline Increased RiskCHOL <200 200-239 >240TRIG <150 150-199 >200HDL Male: >60 <40HDL Female: >60 <50LDL <100 130-159 >160LDL NEAR OPTIMAL IS 100-129 VLDL (test code=VLDL) 36 mg/dL 5-40 LDL/HDL (test code=LDLPHDL) 3 [id number] 20:09:00 Test Item Value Reference Range Comments Lipase (test code=LIP) 31 U/L 13-60 [id number] 20:09:00 Test Item Value Reference Range Comments Amylase (test code=SHAKIR) 92 U/L 28-100 [id number]-[id number] 20:09:00 Test Item Value Reference Range Comments NT ProBnp (test code=PBNP) 42025 pg/mL 0-449 Comprehensive Metabolic [id number] 20:09:00 Test Item Value Reference Range Comments [...] race is not provided, and the patient isAfrican-German, multiply by 1.212. If sex is not provided, and thepatient is female, multiply by 0.742. Results for patients <18 years ofage have not been validated by the MDRD study and should be interpretedwith caution.eGFR Result Interpretation:eGFR > or=60 is in the Normal RangeeGFR < 60 may mean kidney diseaseeGFR < 15 may mean kidney failureRanges recommended by the National Kidney Foundation,http://nkdep.nih .gov BLOOD [id number] 23:30:00 Test Item Value Reference Range Comments Culture Observations (test code=COB1) NO GROWTH AFTER 5 DAYS BLOOD [id number] 23:30:00 Test Item Value Reference Range Comments Culture Observations (test code=COB1) NO GROWTH AFTER 5 DAYS WOUND/SKIN/ABS.&GRAMSTAIN [id number] 08:20:00 Test Item Value Reference Range Comments [...] (test code=lev) ug/mL GLUCOMETER GLUCOSE- LAB USE [id number] 11:39:00 Test Item Value Reference Range Comments GLUCOMETER (test code=GMG) 113 mg/dL 70-100 DAILY MAINTENANCEMeter ID: [id number]: 9086 JAYY NAVARRO URINE [id number] 11:21:00 Test Item Value Reference Range Comments Isolate 1 (test code=ISO1) Pseudomonas aeruginosa piperacillin/tazobactam (test ug/mL code=tzp) ceftazidime (test code=santos) ug/mL cefepime (test code=fep) ug/mL meropenem (test code=mem) ug/mL gentamicin (test code=gm) ug/mL tobramycin (test code=tob) ug/mL levofloxacin (test code=lev) ug/mL WOUND/SKIN/ABS.&GRAMSTAIN [id number] 10:08:00 Test Item Value Reference Range Comments [...] (test code=lev) ug/mL GLUCOMETER GLUCOSE- LAB USE [id number] 05:13:00 Test Item Value Reference Range Comments GLUCOMETER (test code=GMG) 81 mg/dL 70-100 CLEANED METERMeter ID: [id number]: [id number] LETDWAYNE GOLDMAN PRO TIME AND [id number] 04:39:00 Test Item Value Reference Range Comments [...] Heparin. Order Code is ANTI-XA COMPREHENSIVE METABOLIC [id number] 04:32:00 Test Item Value Reference Range Comments [...] (test code=RBCMOR) NORMAL GLUCOMETER GLUCOSE- LAB USE [id number] 21:05:00 Test Item Value Reference Range Comments GLUCOMETER (test code=GMG) 116 mg/dL 70-100 Meter ID: [id number]: 5187 ROBERT GOLDMAN GLUCOMETER GLUCOSE- LAB USE [id number] 16:42:00 Test Item Value Reference Range Comments GLUCOMETER (test code=GMG) 247 mg/dL 70-100 DAILY MAINTENANCEMeter ID: [id number]: 9086 JAYY NAVARRO GLUCOMETER GLUCOSE- LAB USE [id number] 13:21:00 Test Item Value Reference Range Comments GLUCOMETER (test code=GMG) 206 mg/dL 70-100 DAILY MAINTENANCEMeter ID: [id number]: 9086 JAYY NAVARRO U/S KIDNEY (RENAL)2017-07-03 12:24:18RENAL ULTRASOUNDLocation Code: [id number] HISTORY: arfCOMPARISON: None.COMMENT: Real-time sonographic images of [...] acute abnormality.U/S ART FLW DOPPLER STELLA LOW [id number] 11:52:11BILATERAL LOWER EXTREMITY ARTERIAL DOPPLER :Location code: [id number] HISTORY: Bilateral leg pain with peripheral vascular [...] RBC MORPH (test code=RBCMOR) NORMAL COMPREHENSIVE METABOLIC [id number] 06:16:00 Test Item Value Reference Range Comments [...] 8 IU/L <=78 GLUCOMETER GLUCOSE- LAB USE [id number] 05:30:00 Test Item Value Reference Range Comments GLUCOMETER (test code=GMG) 118 mg/dL 70-100 CLEANED METERMeter ID: [id number]: 2907 MARGE MagooshSU GLUCOMETER GLUCOSE- LAB USE [id number] 22:27:00 Test Item Value Reference Range Comments GLUCOMETER (test code=GMG) 158 mg/dL 70-100 Meter ID: [id number]: 2907 MARGE OWSU GLUCOMETER GLUCOSE- LAB USE [id number] 21:35:00 Test Item Value Reference Range Comments GLUCOMETER (test code=GMG) 63 mg/dL 70-100 Meter ID: [id number]: 2907 MARGE OWSU EOSINOPHIL SMEAR [id number] 19:44:00 Test Item Value Reference Range Comments EO URINE (test code=EOU) MODERATE /OIF NONE SEEN CREATININE RANDOM [id number] 19:30:00 Test Item Value Reference Range Comments CREA RAND (test code=CREAR) 47.8 mg/dL NRR (test code=NRR) * NO REFRENCE RANGE AVAILABLE FOR RANDOM SPECIMEN* PROTEIN URINE [id number] 19:18:00 Test Item Value Reference Range Comments HOWARD DOE (test code=MA) 76 mg/dL NRR (test code=NRR) * NO REFRENCE RANGE AVAILABLE FOR RANDOM SPECIMEN* GLUCOMETER GLUCOSE- LAB USE [id number] 15:24:00 Test Item Value Reference Range Comments GLUCOMETER (test code=GMG) 148 mg/dL 70-100 CLEANED METERMeter ID: [id number]: 4787 ISAAC YU GLUCOMETER GLUCOSE- LAB USE [id number] 12:43:00 Test Item Value Reference Range Comments GLUCOMETER (test code=GMG) 184 mg/dL 70-100 Meter ID: [id number]: 5683 NICOL SATYA CARDIAC [id number] 12:26:00 Test Item Value Reference Range Comments TROPONIN I (test code=A84) 0.098 ng/mL 0.000-0.045 CKMB (test code=A49) 5.0 ng/mL <=3.6 CPK (test code=32A) 58 IU/L 26-192 [id number] 12:23:00 Test Item Value Reference Range Comments Hb A1C % (test code=HBA) 8.8 % 4.2-6.3 URINALYSIS WITH [id number] 12:15:00 Test Item Value Reference Range Comments [...] NO RBC MORPH (test code=RBCMOR) NORMAL CARDIAC [id number] 05:42:00 Test Item Value Reference Range Comments TROPONIN I (test code=A84) 0.105 ng/mL 0.000-0.045 CKMB (test code=A49) 4.2 ng/mL <=3.6 CPK (test code=32A) 47 IU/L 26-192 CBC with [id number] 05:10:00 Test Item Value Reference Range Comments [...] Lymph Abs (test code=ALYMPH) 1.2 K/cumm 0.5-4.6 [place] Abs (test code=AMONO) 0.4 K/cumm 0.0-1.2 Eos Abs (test code=AEOS) 0.07 K/cumm 0.00-0.74 Baso Abs (test code=ABASO) 0.0 K/cumm 0.00-0.21 RBC Morphology (test Slight Hypochromia code=RBCMRPH) Platelet Est (test code=PLTEST) Adequate Platelets on Smear Glycosylated [id number] 03:33:00 Test Item Value Reference Range Comments HBA1c (test code=HBA1C) 9.5 % 4.8-5.9 Comprehensive Metabolic [id number] 00:02:00 Test Item Value Reference Range Comments [...] race is not provided, and the patient isAfrican-German, multiply by 1.212. If sex is not provided, and thepatient is female, multiply by 0.742. Results for patients <18 years ofage have not been validated by the MDRD study and should be interpretedwith caution.eGFR Result Interpretation:eGFR > or=60 is in the Normal RangeeGFR < 60 may mean kidney diseaseeGFR < 15 may mean kidney failureRanges recommended by the National Kidney Foundation,http://nkdep.nih. gov Lipid [id number] 00:02:00 Test Item Value Reference Range Comments Cholesterol (test 251 mg/dL 0-200 code=CHOL) Triglycerides (test 201 mg/dL 9-200 code=TRIG) HDL (test code=HDL) 44 mg/dL 50-60 Chol/HDL (test 5.7 Ratio 0.0-4.4 code=CHOLPHDL) LDL, Calculated (test 167 0-130 (NOTE)RISK OF HEART code=LDLC) DISEASEPublished by German Heart AssociationAnalyte Optimal Boderline Increased RiskCHOL <200 200-239 >240TRIG <150 150-199 >200HDL Male: >60 <40HDL Female: >60 <50LDL <100 130-159 >160LDL NEAR OPTIMAL IS 100-129 VLDL (test code=VLDL) 40 mg/dL 5-40 LDL/HDL (test code=LDLPHDL) 4
[2019-04-24 09:14] LABS: Protime INR 1.04
[2019-04-24 09:20] LABS: Uric Acid 7.1 mg/dL (2.6-6.0)
[2019-04-24 09:24] LABS: Absolute Lymphocytes (CBC) 1.9 K/uL (0.7-4.9); Basophils % 0.2 % (0-1.3); Hematocrit 31.5 % (36.0-45.0); Lymphocytes % 16.6 % (15.3-44.8); MPV 8.2 fL (7.6-11.3); RBC Red Blood Cell Count 3.92 M/uL (3.86-4.86)
[2019-04-24 09:59] LABS: AST/SGOT 12 U/L (15-37); Albumin 2.5 g/dL (3.4-5.0); Alkaline Phosphatase 69 U/L (45-117); BUN Blood Urea Nitrogen 113 mg/dL (7-18); Bilirubin Direct 0.1 mg/dL (0-0.2); Bilirubin Total 0.3 mg/dL (0.2-1.0); Glucose Level 69 mg/dL (74-106); Magnesium 1.9 mg/dL (1.8-2.4); NT PRO-BNP > 35000 pg/mL (<450); Protein, Total 7.2 g/dL (6.4-8.2); Sodium Level 143 mmol/L (136-145)
[2019-04-24 10:00] LABS: ALT/SGPT < 6 U/L (12-78)
[2019-04-24 10:01] LABS: Potassium 2.7 mmol/L (3.5-5.1)
[2019-04-24 10:02] LABS: Bicarbonate 13 mmol/L (21-32); Troponin (Emerg Dept Use Only) 0.54 ng/mL (0.0-0.045)
[2019-04-24] MEDS ORDERED: NA CHLORIDE 0.9% 500 ML ONE (10:10)
[2019-04-24] MEDS ORDERED: KCL 20 MEQ/100 mL IVPB 20 MEQ/100 ML BAG IV ONE (10:10)
--- NOTE | 2019-04-24 10:16 | RAD REPORT ---
EXAM DESCRIPTION: RAD - Chest Single View - 04/24/2019 9:10 am CLINICAL HISTORY: Cough, hemoptysis COMPARISON: November 26 TECHNIQUE: AP portable chest image was obtained 0905 hours . FINDINGS: Interstitial and alveolar opacities have developed in the right upper lobe new from November. Patient has a baseline chronic interstitial lung pattern. No additional areas of infiltrate seen. Hi lar regions are stable. Defibrillator is in place from left subclavian approach. Heart and vasculatur e are normal. No measurable pleural effusion and no pneumothorax. No acute bony abnormality seen. No acute aortic findings suspected. IMPRESSION: Right upper lobe pneumonia findings are present superimposed on diffuse chronic intersti tial lung disease.
[2019-04-24 10:19] LABS: Anisocytosis 2+; Blood Morphology Comment NOTED (NOT SEEN); Platelet Estimate DECR; Target Cells 1+
[2019-04-24 10:20] LABS: Burr Cells 2+; Teardrop Cell 1+
[2019-04-24] MEDS ORDERED: D5W 1,000 ML with POTASSIUM CL 20 MEQ IV SCH ×2 (10:30)
[2019-04-24] MEDS ORDERED: PIPER/TAZO/NS 3.375gm 3.375 GM/100 ML BAG ONE (10:48)
--- NOTE | 2019-04-24 11:08 | ER ---
Nurse's Notes [facility] Name: Karissa Frias Age: 84 yrs Sex: Female : 1935 Arrival Date: 04/24/2019 Time: 08:01 Bed 14 Private MD: Diagnosis: Acute on Chronic renal failure;Pneumonia, unspecified organism;Dehydration;Urinary tract infection, site not specified Presentation: 04/24 08:13 Presenting complaint: Dark blood in vomit x 1 today. Transition of care: patient was hb not received from another setting of care. Onset of symptoms was April 24, 2019. Risk Assessment: Do you want to hurt yourself or someone else? Patient reports no desire to harm self or others. Initial Sepsis Screen: Does the patient meet any 2 criteria? No. Patient's initial sepsis screen is negative. Does the patient have a suspected source of infection? No. Patient's initial sepsis screen is negative. Care prior to arrival: None. 08:13 Method Of Arrival: Wheelchair hb 08:13 Acuity: LAURO 3 hb Triage Assessment: 08:15 General: Appears in no apparent distress. comfortable, ill, slender, Behavior is calm, bp listless. Pain: Denies pain. EENT: No deficits noted. Neuro: Level of Consciousness is listless. Cardiovascular: No deficits noted. Respiratory: No deficits noted. GI: Reports nausea. : No signs and/or symptoms were reported regarding the genitourinary system. Derm: No deficits noted. Musculoskeletal: No deficits noted. Historical: - Allergies: 08:14 No Known Allergies; - Home Meds: 13:52 nifedipine 90 mg Oral TbER 1 tab once daily [Active]; furosemide 40 mg Oral tab 1 tab 2 bp times per day [Active]; hydralazine 25 mg Oral tab 1 tab three times a day [Active]; carvedilol 12.5 mg Oral tab 1 tab 2 times per day [Active]; digoxin 125 mcg Oral tab 1 tab once daily [Active]; Plavix 75 mg Oral tab 1 tab once daily [Active]; pantoprazole 40 mg oral TbEC 1 tab once daily [Active]; - PMHx: 13:52 Anemia; Atrial Fib; CAD; CHF; Diabetes - NIDDM; DYSPHAGIA; High Cholesterol; bp Hypertension; osteomyelitis; Renal Disease; - Immunization history:: Adult Immunizations up to date. - Social history:: Smoking status: Patient/guardian denies using tobacco. - Ebola Screening: : No symptoms or risks identified at this time. Screenin:55 Abuse screen: Denies threats or abuse. Denies injuries from another. Nutritional bp screening: No deficits noted. Tuberculosis screening: No symptoms or risk factors identified. Fall Risk None identified. Assessment: 08:15 General: SEE TRIAGE NOTE. Pain: Denies pain. GI: Abdomen is non-distended. bp 09:30 Reassessment: FAMILY REFUSING CT AND HAMMONDS AT THIS TIME. bp 10:00 Reassessment: FAMILY EDUCATED ON NEED FOR HAMMONDS, NOW IN AGREEMENT WITH HEALTH CARE PLAN.bp 10:38 Reassessment: DAUGHTER: ALISTAIR TAVERAS [phone]. bp 12:00 Reassessment: Patient and/or family updated on plan of care and expected duration. Pain bp level reassessed. Patient is alert, oriented x 3, equal unlabored respirations, skin warm/dry/pink. NO ACUTE S/S OF DISTRESS, VS STABLE ON MONITOR. 13:35 Reassessment: ADMIT MD AT B/S. bp 15:00 Reassessment: PER ADMIT MD, ADMIT ON HOLD PENDING FULL LAB AND RAD RESULTS. bp Vital Signs: 08:14 BP 144 / 52; Pulse 101; Resp 16; Temp 97.2; Pulse Ox 100% on R/A; Weight 61.23 kg; hb Height 5 ft. 7 in. (170.18 cm); Pain 0/10; 09:00 BP 142 / 69; Pulse 59; Resp 17; Pulse Ox 99% ; bp 10:00 BP 138 / 37; Pulse 59; Resp 16; Pulse Ox 99% ; bp 12:00 BP 142 / 52; Pulse 60; Resp 14; Pulse Ox 99% ; bp 13:30 BP 153 / 47; Pulse 60; Resp 14; Pulse Ox 100% ; bp 15:00 BP 141 / 45; Pulse 59; Resp 17; Pulse Ox 99% ; bp 08:14 Body Mass Index 21.14 (61.23 kg, 170.18 cm) hb ED Course: 08:01 Patient arrived in ED. as 08:05 Luis Alberto Morales, RN is Primary Nurse. bp 08:13 Triage completed. hb 08:14 [facility] Mckenzie [facility]NP-C [facility] snw 08:14 Bam Rizzo MD is Attending Physician. snw 08:14 Arm band placed on. hb 08:27 EKG done, by support technician. reviewed by Lily SMITH. at1 08:45 Inserted saline lock: 24 gauge in right forearm, using aseptic technique. Blood bp collected. 08:55 Patient has correct armband on for positive identification. Bed in low position. Call bp light in reach. Side rails up X2. Adult w/ patient. 09:11 XRAY Chest (1 view) In Process Unspecified. EDMS 10:20 Hammonds cath inserted, using sterile technique, 16 Fr., by ny, balloon inflated, returned aa5 cloudy urine with mucus and streaks of blood . Patient tolerated well. 10:57 Cathy Foy MD is Hospitalizing Provider. snw 14:39 CT Head Brain wo Cont In Process Unspecified. EDMS 16:07 No provider procedures requiring assistance completed. Patient admitted, IV remains in bp place. Administered Medications: 10:06 Not Given (Other Intervention Used): NS 0.9% 1000 ml IV at 75 ml/hr continuous bp 10:15 Drug: NS 0.9% 500 ml Route: IV; Rate: bolus; Site: right forearm; bp 16:10 Follow up: IV Status: Completed infusion; IV Intake: 500ml bp 10:15 Drug: D5W with KCL 20 mEq/L 1000 ml Route: IV; Rate: 80 ml/hr; Site: right forearm; bp 16:10 Follow up: IV Status: Infusion continued upon admission bp 10:15 Drug: Potassium Chloride 20 mEq Route: IV; Rate: calculated rate; Site: right forearm; bp 16:09 Follow up: IV Status: Completed infusion; IV Intake: 100ml bp 11:00 Drug: Zosyn 3.375 grams Route: IVPB; Infused Over: 60 mins; Site: right forearm; bp 16:08 Follow up: IV Status: Completed infusion; IV Intake: 100ml bp Intake: 16:08 IV: 100ml; Total: 100ml. bp 16:09 IV: 100ml; Total: 200ml. bp 16:10 IV: 500ml; Total: 700ml. bp Outcome: 10:59 Decision to Hospitalize by Provider. snw 16:07 Admitted to Tele accompanied by tech, family with patient, via stretcher, room 208, bp with chart, Report called to KIKO FRANCO 16:08 Condition: stable bp 16:08 Instructed on the need for admit. 16:35 Patient left the ED. hb Signatures: Dispatcher [employer] EDMS Lily Mckenzie, ROLLING MILL OPERATOR-C ROLLING MILL OPERATOR-Csnw Lisseth Turner Audri, RN RN aa5 Marika Adams, programmer analyst consultant EKG Tat1 Naina Hendrix RN RN Luis Alberto Morales RN RN bp Corrections: (The following items were deleted from the chart) 13:37 13:35 Reassessment: PT SLEEPING, ADMIT IN PROCESS bp bp
--- NOTE | 2019-04-24 11:09 | EDPHYS ---
Physician Documentation [facility] Name: Karissa Frias Age: 84 yrs Sex: Female : 1935 Arrival Date: 04/24/2019 Time: 08:01 Bed 14 Private MD: ED Physician Bam Rizzo HPI: 04/24 08:50 This 84 yrs old Black Female presents to ER via Wheelchair with complaints of Vomiting, snw Blood Pressure Problem. 08:50 The patient presents to the emergency department with nausea, vomiting, 2 times since snw the onset of symptoms. Onset: The symptoms/episode began/occurred suddenly, 3 day(s) ago, and became persistent. Possible causes: unknown. The symptoms are aggravated by nothing. Associated signs and symptoms: Pertinent positives: anorexia, vomiting, weakness, listlessness. Severity of symptoms: At their worst the symptoms were moderate severe. It is unknown whether or not the patient has had similar symptoms in the past. The patient has not recently seen a physician. Daughter returned from a trip to find pt with decreased LOC, low BP, low FSBS. Historical: - Allergies: 08:14 No Known Allergies; hb - Home Meds: 13:52 nifedipine 90 mg Oral TbER 1 tab once daily [Active]; furosemide 40 mg Oral tab 1 tab 2 bp times per day [Active]; hydralazine 25 mg Oral tab 1 tab three times a day [Active]; carvedilol 12.5 mg Oral tab 1 tab 2 times per day [Active]; digoxin 125 mcg Oral tab 1 tab once daily [Active]; Plavix 75 mg Oral tab 1 tab once daily [Active]; pantoprazole 40 mg oral TbEC 1 tab once daily [Active]; - PMHx: 13:52 Anemia; Atrial Fib; CAD; CHF; Diabetes - NIDDM; DYSPHAGIA; High Cholesterol; bp Hypertension; osteomyelitis; Renal Disease; - Immunization history:: Adult Immunizations up to date. - Social history:: Smoking status: Patient/guardian denies using tobacco. - Ebola Screening: : No symptoms or risks identified at this time. ROS: 08:50 Eyes: Negative for injury, pain, redness, and discharge, ENT: Negative for injury, snw pain, and discharge, Neck: Negative for injury, pain, and swelling, Cardiovascular: Negative for chest pain, palpitations, and edema, Respiratory: Negative for shortness of breath, cough, wheezing, and pleuritic chest pain. 08:50 Back: Negative for injury and pain, : Negative for injury, bleeding, discharge, and swelling, MS/Extremity: Negative for injury and deformity, Skin: Negative for injury, rash, and discoloration. 08:50 Constitutional: Positive for malaise, poor PO intake, weight loss. 08:50 Abdomen/GI: Positive for vomiting, x 2 episodes. 08:50 Neuro: Positive for decreased responsiveness and decreased FSBS and Blood pressure x 2 days. Exam: 08:40 Eyes: Pupils equal round and reactive to light, extra-ocular motions intact. Lids and snw lashes normal. Conjunctiva and sclera are non-icteric and not injected. Cornea within normal limits. Periorbital areas with no swelling, redness, or edema. 08:40 Neck: Trachea midline, no thyromegaly or masses palpated, and no cervical lymphadenopathy. Supple, full range of motion without nuchal rigidity, or vertebral point tenderness. No Meningismus. Chest/axilla: Normal chest wall appearance and motion. Nontender with no deformity. No lesions are appreciated. Cardiovascular: Regular rate and rhythm with a normal S1 and S2. No gallops, murmurs, or rubs. Normal PMI, no JVD. No pulse deficits. Respiratory: Lungs have equal breath sounds bilaterally, clear to auscultation and percussion. No rales, rhonchi or wheezes noted. No increased work of breathing, no retractions or nasal flaring. Abdomen/GI: Soft, non-tender, with normal bowel sounds. No distension or tympany. No guarding or rebound. No evidence of tenderness throughout. Back: No spinal tenderness. No costovertebral tenderness. Full range of motion. 08:40 Constitutional: The patient appears lethargic, listless. 08:40 Head/face: Noted is sunken, cachectic. 08:40 ENT: Mouth: Oral mucosa: dry. 08:40 Skin: Appearance: Temperature: cool, lesion(s), bka to right, great toe on left with diabetic ulcer, mildly bleeding with mild palpation of distal portion. Vital Signs: 08:14 BP 144 / 52; Pulse 101; Resp 16; Temp 97.2; Pulse Ox 100% on R/A; Weight 61.23 kg; hb Height 5 ft. 7 in. (170.18 cm); Pain 0/10; 09:00 BP 142 / 69; Pulse 59; Resp 17; Pulse Ox 99% ; bp 10:00 BP 138 / 37; Pulse 59; Resp 16; Pulse Ox 99% ; bp 12:00 BP 142 / 52; Pulse 60; Resp 14; Pulse Ox 99% ; bp 13:30 BP 153 / 47; Pulse 60; Resp 14; Pulse Ox 100% ; bp 15:00 BP 141 / 45; Pulse 59; Resp 17; Pulse Ox 99% ; bp 08:14 Body Mass Index 21.14 (61.23 kg, 170.18 cm) hb MDM: 08:14 Patient medically screened. snw 10:56 Data reviewed: vital signs, nurses notes. Data interpreted: Pulse oximetry: on room air snw is 99 %. Interpretation: normal. Counseling: I had a detailed discussion with the patient and/or guardian regarding: the historical points, exam findings, and any diagnostic results supporting the discharge/admit diagnosis, lab results, radiology results, the need for further work-up and treatment in the hospital. Physician consultation: Cathy Foy MD was called at 10:57, was contacted at 10:57, regarding admission, to the telemetry unit. 04/24 08:15 Order name: Basic Metabolic Panel; Complete Time: 10:04 snw 04/24 08:15 Order name: CBC with Diff; Complete Time: 10:25 snw 04/24 08:15 Order name: LFT's; Complete Time: 10:04 snw 04/24 08:15 Order name: Magnesium; Complete Time: 10:04 snw 04/24 08:15 Order name: NT PRO-BNP; Complete Time: 10:04 snw 04/24 08:15 Order name: PT-INR; Complete Time: 09:23 snw 04/24 08:15 Order name: Troponin (emerg Dept Use Only); Complete Time: 10:04 snw 04/24 08:15 Order name: TS; Complete Time: 11:52 snw 04/24 08:35 Order name: Phosphorus; Complete Time: 09:28 snw 04/24 08:35 Order name: Uric Acid; Complete Time: 09:28 snw 04/24 08:35 Order name: Lactate; Complete Time: 09:23 snw 04/24 08:35 Order name: Procalcitonin; Complete Time: 10:13 [facility] 04/24 08:35 Order name: Urine Culture [facility] 04/24 08:15 Order name: XRAY Chest (1 view); Complete Time: 10:25 [facility] 04/24 08:15 Order name: EKG; Complete Time: 08:16 [facility] 04/24 10:19 Order name: Manual Differential; Complete Time: 10:25 [facility] 04/24 10:30 Order name: UA; Complete Time: 12:19 04/24 12:18 Order name: Urine Microscopic Only; Complete Time: 12:19 [facility] 04/24 13:46 Order name: CT Head Brain wo Cont; Complete Time: 15:01 04/24 15:34 Order name: Blood Culture [facility] 04/24 15:34 Order name: NPO [facility] 04/24 15:35 Order name: Wound Culture [facility] 04/24 15:35 Order name: [facility] Cons [facility] 04/24 08:15 Order name: Cardiac monitoring; Complete Time: 08:57 [facility] 04/24 08:15 Order name: EKG - Nurse/Tech; Complete Time: 08:57 [facility] 04/24 08:15 Order name: IV Saline Lock; Complete Time: 08:57 [facility] 04/24 08:15 Order name: Labs collected and sent; Complete Time: 08:57 [facility] 04/24 08:15 Order name: O2 Per Protocol; Complete Time: 08:57 [facility] 04/24 08:15 Order name: O2 Sat Monitoring; Complete Time: 08:57 [facility] 04/24 08:35 Order name: [place]; Complete Time: 10:32 [facility] 04/24 09:52 Order name: Labs - recollect needed; Complete Time: 09:55 04/24 13:06 Order name: consult Order-Dr Gael; Complete Time: 13:09 [facility] 04/24 15:35 Order name: Speech Therapy Consult [facility] Administered Medications: 10:06 Not Given (Other Intervention Used): NS 0.9% 1000 ml IV at 75 ml/hr continuous bp 10:15 Drug: NS 0.9% 500 ml Route: IV; Rate: bolus; Site: right forearm; bp 16:10 Follow up: IV Status: Completed infusion; IV Intake: 500ml bp 10:15 Drug: D5W with KCL 20 mEq/L 1000 ml Route: IV; Rate: 80 ml/hr; Site: right forearm; bp 16:10 Follow up: IV Status: Infusion continued upon admission bp 10:15 Drug: Potassium Chloride 20 mEq Route: IV; Rate: calculated rate; Site: right forearm; bp 16:09 Follow up: IV Status: Completed infusion; IV Intake: 100ml bp 11:00 Drug: Zosyn 3.375 grams Route: IVPB; Infused Over: 60 mins; Site: right forearm; bp 16:08 Follow up: IV Status: Completed infusion; IV Intake: 100ml bp Disposition: 04/24/19 10:59 Hospitalization ordered by Cathy Foy for Inpatient Admission. Preliminary diagnosis are Acute on Chronic renal failure, Pneumonia, unspecified organism, Dehydration, Urinary tract infection, site not specified. - Bed requested for Telemetry/MedSurg (Inpatient). - Status is Inpatient Admission. hb - Condition is Fair. - Problem is an acute exacerbation. - Symptoms have worsened. UTI on Admission? Yes Addendum: 04/27/2019 08:59 Co-signature as Attending Physician, Bam Rizzo MD I agree with the assessment and k dr plan of care. Signatures: Dispatcher [employer] [facility] Bam Rizzo MD MD [facility] Lily Mckenzie, CODING EDUCATOR-C CODING EDUCATOR-Csnw Naina Hendrix, RN RN Luis Alberto Morales, RN RN Lisa Campos Corrections: (The following items were deleted from the chart) 04/24 10:16 09:31 Head Brain Wo Cont+CT.RAD.BRZ ordered. [facility] EDTX 11:57 10:59 Hospitalization Ordered by Cathy Foy MD for Inpatient Admission. Preliminary eb diagnosis is Acute on Chronic renal failure; Pneumonia, unspecified organism; Dehydration. Bed requested for Telemetry/MedSurg (Inpatient). Status is Inpatient Admission. Condition is Fair. Problem is an acute exacerbation. Symptoms have worsened. UTI on Admission? No. snw 12:19 11:57 04/24/2019 10:59 Hospitalization Ordered by Cathy Foy MD for Inpatient snw Admission. Preliminary diagnosis is Acute on Chronic renal failure; Pneumonia, unspecified organism; Dehydration. Bed requested for Telemetry/MedSurg (Inpatient). Status is Inpatient Admission. Condition is Fair. Problem is an acute exacerbation. Symptoms have worsened. UTI on Admission? No. eb 12:24 08:37 UA MICROSCOPIC+U.LAB.BRZ ordered. EDTX EDMS 15:40 12:19 04/24/2019 10:59 Hospitalization Ordered by Cathy Foy MD for Inpatient eb Admission. Preliminary diagnosis is Acute on Chronic renal failure; Pneumonia, unspecified organism; Dehydration; Urinary tract infection, site not specified. Bed requested for Telemetry/MedSurg (Inpatient). Status is Inpatient Admission. Condition is Fair. Problem is an acute exacerbation. Symptoms have worsened. UTI on Admission? Yes. snw 16:35 15:40 04/24/2019 10:59 Hospitalization Ordered by Cathy Foy MD for Inpatient hb Admission. Preliminary diagnosis is Acute on Chronic renal failure; Pneumonia, unspecified organism; Dehydration; Urinary tract infection, site not specified. Bed requested for Telemetry/MedSurg (Inpatient). Status is Inpatient Admission. Condition is Fair. Problem is an acute exacerbation. Symptoms have worsened. UTI on Admission? Yes. eb
[2019-04-24 12:14] LABS: Urine Appearance TURBID; Urine Color ORANGE
[2019-04-24 12:15] LABS: Urine Bilirubin NEGATIVE (NEG); Urine Blood 3+ (NEG); Urine Glucose NEGATIVE (NEG); Urine Microscopic Reflex ORDER UMIC; Urine Protein 3+ (NEG); Urine Urobilinogen 0.2 mg/dL (0.2-1.0); Urine pH >9.0 (5.0-7.0)
[2019-04-24 12:16] LABS: Urine Bacteria LOADED /HPF (<20); Urine Culture Reflex Order NOT NEEDED; Urine Mucus HEAVY /HPF (NONE SEEN); Urine RBC >50 /HPF (NONE SEEN)
--- NOTE | 2019-04-24 14:32 | RAD REPORT ---
EXAM DESCRIPTION: CT - Head Brain Wo Cont - 04/24/2019 2:09 pm CLINICAL HISTORY: Transient alteration of awareness, hypoglycemia COMPARISON: None. TECHNIQUE: Axial 5 mm thick images of the head were obtained without IV contrast. All CT scans are performed using dose optimization technique as appropriate and may include automated exposure control or mA/KV adjustment according to patient size. FINDINGS: No intracranial hemorrhage, mass, edema or shift of mid-line structures. No acute cortical based infarction. No cortical edema or sulcal effacement. Patient has prominent atrophy and chronic ischemic change. No abnormal extra-axial fluid collections. Ventricles are in proportion to volume lo ss. Mastoid air cells and visualized portions of the paranasal sinuses are clear. Patient has hyperostosis frontalis interna. No acute bone finding. IMPRESSION: Prominent atrophy and chronic ischemic change. Ventricles are in proportion. No acute intracranial finding.
--- NOTE | 2019-04-24 15:58 | P.HP ---
Certification for Inpatient Patient admitted to: Inpatient With expected LOS: >2 Midnights Patient will require the following post-hospital care: None Practitioner: I am a practitioner with admitting privileges, knowledge of patient current condition, hospital course, and medical plan of care. Services: Services provided to patient in accordance with Admission requirements found in Title 42 Section 412.3 of the Code of Federal Regulations Patient History Date of Service: 04/24/19 Primary Care Provider: Shala Sanchez Reason for admission: AMS History of Present Illness: 84 y/o F with significant Pmhx who was brought to the ER by Daughter. Daughter states patient has been having poor appepitite for past couple of days since the daughter went on vacation. She was having AMS today and thus she checked her vitals. Her BP was low and BS was low as well. She gave the patient NA and Sugar which seemed to help bring up both at the time. She then called 911 for the patient to be brought to the hospital. Pt has also been having Diarrhea since past 3 days. has been in and out the hospital for past 3 to 4 months. Was recently admitted to [facility] for CARMEN and given Fluids and then DC home. She was on Hospice before, however hospice was revoked. Pt at baseline is demented with AAOx1 and does not get out of bed. She leaves at home with her daughter. Denies CP, SOB, N.V or any other symptoms. Pt was seen in the ER and was found to have CARMEN, Diarrhea, PNA and AMS was thus admitted for further care, Allergies No Known Allergies Allergy (Verified 11/25/18 23:33) Home Medications: Carvedilol 12.5 mg PO BID 11/26/18 Clopidogrel Bisulfate [Plavix*] 75 mg PO DAILY 11/26/18 Digoxin [Lanoxin*] 0.125 mg PO DAILY 11/26/18 Furosemide 40 mg PO BID 11/26/18 Hydralazine [Apresoline*] 25 mg PO TID 11/26/18 Metformin HCl 500 mg PO BID 11/26/18 Nifedipine [Nifedipine ER] 90 mg PO DAILY 11/26/18 Pantoprazole [Protonix Tab*] 40 mg PO DAILY 11/26/18 - Past Medical/Surgical History Diabetic: Yes -: Atrial fibrillation, NO chronic anticoagulation -: CAD -: HTN -: DM Type 2 -: Anemia of Chronic disease -: Chronic Renal Disease -: PVD -: DM Foot ulcer -: Diabetic neuropathy -: Malnutrition -: Hx of Pacemaker/Defibrillator -: PEG tube -: AICD placement -: PEG tube placement Psychosocial/ Personal History: skilled nursing placement - Family History Father -: Diabetes Mother -: Diabetes - Social History Alcohol use: No CD- Drugs: No Caffeine use: No Review of Systems 10-point ROS is otherwise unremarkable Physical Examination - Physical Exam General: Cachectic, Demented, Mild distress, Confused Neck: 2+ carotid pulse no bruit, JVD distended Respiratory: Normal air movement, Crackles/rales, Expiratory wheezes, Inspiratory wheezes Cardiovascular: Regular rate/rhythm, Normal S1 S2 Gastrointestinal: Normal bowel sounds, No tenderness Musculoskeletal: No tenderness, Other (right BKA ) Integumentary: No rashes Neurological: Abnormal speech, Abnormal strength, Abnormal tone Lymphatics: No axilla or inguinal lymphadenopathy - Studies Laboratory Data (last 24 hrs) 04/24/19 08:45: Uric Acid 7.1 H D, Phosphorus 6.0 H 04/24/19 08:45: PT 12.2, INR 1.04 04/24/19 08:45: WBC 11.5 H, Hgb 10.4 L, Hct 31.5 L, Plt Count 36 L* 04/24/19 08:45: Sodium 143, Potassium 2.7 L*, BUN 113 H, Creatinine 5.87 H*, Glucose 69 L, Magnesium 1.9, Total Bilirubin 0.3, AST 12 L, ALT < 6 L, Alkaline Phosphatase 69 Assessment and Plan - Problems (Diagnosis) (1) Altered mental status Current Visit: Yes Status: Acute Plan: AMS 2.2 to Low BP and BS -At baseline patient with Dementia aaox 2. -Today lethargic and non responsiding to daughter at all -Head Ct with No new changes -Will monitor closely -R.O Infection and other organic causes (2) Diarrhea Onset Date: 02/13/18 Current Visit: No Status: Acute Plan: Diarrhea for past 2 days most likely 2.2 to CKD -Will get stool studies done -if + start on Flagyl Qualifiers: Diarrhea type: unspecified type Qualified Code(s): R19.7 - Diarrhea, unspecified (3) Acute kidney injury superimposed on CKD Onset Date: 08/27/17 Current Visit: No Status: Acute Plan: CARMEN most likely 2.2 to Dehydration -Pt with Decrease PO intake for past 2 days -BUN.CR midly elevated from her baseline of 5.0 -Will give IV fluids at 50ml/hr -Will recheck BUN.CR -Nephrology consulted. Appreciated Reccs (4) Atrial fibrillation Onset Date: 12/13/17 Current Visit: No Status: Chronic Plan: Chronic Atrial Fib -Will restart home meds except Anticoagulation due to Low Plt Qualifiers: Atrial fibrillation type: chronic (5) CAD (coronary artery disease) Onset Date: 08/27/17 Current Visit: No Status: Chronic Qualifiers: Coronary Disease-Associated Artery/Lesion type: [place] artery [place] vs. transplanted heart: [place] heart Associated angina: without angina Qualified Code(s): I25.10 - Atherosclerotic heart disease of [place] coronary artery without angina pectoris (6) CHF (congestive heart failure) Onset Date: 12/13/17 Current Visit: No Status: Chronic Plan: CHF with EF of 20% on last echo. -S/p Pacemaker and defib placement -Will restart on home medication -Monitor for fluid overload with current Fluids Qualifiers: Heart failure type: systolic Heart failure chronicity: chronic Qualified Code(s): I50.22 - Chronic systolic (congestive) heart failure (7) Dementia Onset Date: 08/27/17 Current Visit: No Status: Chronic Plan: Sever Dementia -Head CT with Severe Brain atropy and Chronic Ischemia Qualifiers: Dementia type: unspecified type Dementia behavioral disturbance: without behavioral disturbance Qualified Code(s): F03.90 - Unspecified dementia without behavioral disturbance (8) Diabetes mellitus Onset Date: 12/13/17 Current Visit: No Status: Chronic Plan: Will hold on Insulin due to Hypoglycemia at this time Qualifiers: Diabetes mellitus type: type 2 Diabetes mellitus terminal press operator insulin use: without terminal press operator use Diabetes mellitus complication status: with circulatory complication Diabetes mellitus complication detail: with peripheral angiopathy without gangrene Qualified Code(s): E11.51 - Type 2 diabetes mellitus with diabetic peripheral angiopathy without gangrene (9) History of automatic internal cardiac defibrillator (AICD) Current Visit: No Status: Chronic (10) Hx of right BKA Current Visit: No Status: Chronic (11) Hypertension Onset Date: 08/27/17 Current Visit: No Status: Chronic Qualifiers: Hypertension type: essential hypertension (12) Malnutrition Onset Date: 12/13/17 Current Visit: No Status: Chronic Qualifiers: Malnutrition type: protein-calorie malnutrition Protein-calorie malnutrition severity: severe Qualified Code(s): E43 - Unspecified severe protein-calorie malnutrition (13) Pressure ulcer of coccygeal region, stage 3 Onset Date: 04/09/18 Current Visit: No Status: Chronic Discharge Plan: Other Plan to discharge in: Greater than 2 days - Advance Directives Does patient have a Living Will: Yes Does patient have a Durable POA for Healthcare: Yes - Code Status/Comfort Care Code Status Assessed: Yes Critical Care: No
[2019-04-24] MEDS ORDERED: SODIUM CHLORIDE 0.9% 10ML INJ IV PRN (17:05)
[2019-04-24] MEDS ORDERED: ONDANSETRON 4 MG/2 ML VIAL IV PRN (17:05)
[2019-04-24 18:09] VITALS: BMI 21.1
[2019-04-24] MEDS ORDERED: CEFEPIME 1 GM/VIAL IV SCH (21:00)
[2019-04-24] MEDS: CEFEPIME/SWI 1gm 10 ML IVP SCH (21:56)
[2019-04-24] MEDS: PANTOPRAZOLE 40 MG INJ IVP SCH (21:56)
--- NOTE | 2019-04-25 00:39 | P.CNS ---
Date of Consult: 04/24/19 Reason for Consult: CARMEN, hypokalemia Primary Care Provider: Shala Sanchez Chief Complaint: AMS History of Present Illness: Pt is unabkle to provide HX, HX obtained from daughter at bedside and chart An 84 Y/O woman with PMHx of DM, HTN, advanced dementia , HTN , Afib , CKD IV-V with baseline Cr ~4-5.0, and PVD S>P rt BKA pt presented for weakness and AMS daughter also stated that mother also have diarrhea No vomitingm chest pain or palpitation Allergies No Known Allergies Allergy (Verified 11/25/18 23:33) Home Medications: Carvedilol 12.5 mg PO BID 11/26/18 Clopidogrel Bisulfate [Plavix*] 75 mg PO DAILY 11/26/18 Digoxin [Lanoxin*] 0.125 mg PO DAILY 11/26/18 Furosemide 40 mg PO BID 11/26/18 Hydralazine [Apresoline*] 25 mg PO TID 11/26/18 Nifedipine [Nifedipine ER] 90 mg PO DAILY 11/26/18 Pantoprazole [Protonix Tab*] 40 mg PO DAILY 11/26/18 - Past Medical/Surgical History Diabetic: Yes -: Atrial fibrillation, NO chronic anticoagulation -: CAD -: HTN -: DM Type 2 -: Anemia of Chronic disease -: Chronic Renal Disease -: PVD -: DM Foot ulcer -: Diabetic neuropathy -: Malnutrition -: Hx of Pacemaker/Defibrillator -: PEG tube -: AICD placement -: PEG tube placement Psychosocial/ Personal History: [facility] placement - Family History Father Medical History: Diabetes Mother Medical History: Diabetes - Social History Smoking Status: Unknown if ever smoked Alcohol use: No CD- Drugs: No Caffeine use: No Place of Residence: Home Review of Systems is unable to be obtained Physical Examination Temp Pulse Resp BP Pulse Ox 97.9 F 60 17 140/60 95 04/25/19 00:00 04/25/19 00:00 04/25/19 00:00 04/25/19 00:00 04/25/19 00:00 General: Cachectic, Comatose HEENT: Atraumatic Neck: Supple, Without JVD or thyroid abnormality Respiratory: Clear to auscultation bilaterally, Normal air movement Cardiovascular: No edema, Normal S1 S2, No gallops, No rubs, No murmurs Musculoskeletal: Other (Rt BKA , Lt foot dressing ) Laboratory Data (last 24 hrs) 04/24/19 08:45: Uric Acid 7.1 H D, Phosphorus 6.0 H 04/24/19 08:45: PT 12.2, INR 1.04 04/24/19 08:45: WBC 11.5 H, Hgb 10.4 L, Hct 31.5 L, Plt Count 36 L* 04/24/19 08:45: Sodium 143, Potassium 2.7 L*, BUN 113 H, Creatinine 5.87 H*, Glucose 69 L, Magnesium 1.9, Total Bilirubin 0.3, AST 12 L, ALT < 6 L, Alkaline Phosphatase 69 - Problems (1) Altered mental status Current Visit: Yes Status: Acute (2) Acute kidney injury superimposed on CKD Onset Date: 08/27/17 Current Visit: No Status: Acute (3) Diarrhea Onset Date: 02/13/18 Current Visit: No Status: Acute Qualifiers: Diarrhea type: unspecified type Qualified Code(s): R19.7 - Diarrhea, unspecified Conclusions/Impression: CARMEN on CKD IV/V CR baseline ~4.0-5.0 CARMEN possibly due to dehydration will order renal US daughter denied NSAID and contrast exposure denied NSAID intake no need for renal replacment theraopy and daughter is refusing HD if needed Hypokalemia due to poor oral intake and diarrhea will replace DM as per primary HTN resume home meds Thrombocytopenia possibly due to sepsis? AFib rate controlled Advanced dementia Cont supportive care Poor prognosis
[2019-04-25 03:00] LABS: Urine Protein/Creatinine Ratio 2.36 ratio (<0.15)
[2019-04-25 06:39] LABS: Absolute Lymphocytes (CBC) 2.6 K/uL (0.7-4.9); Basophils % 0.2 % (0-1.3); Lymphocytes % 20.9 % (15.3-44.8); MPV 7.7 fL (7.6-11.3); RBC Red Blood Cell Count 3.25 M/uL (3.86-4.86)
[2019-04-25 07:03] LABS: AST/SGOT 11 U/L (15-37); Albumin 2.1 g/dL (3.4-5.0); Alkaline Phosphatase 56 U/L (45-117); BUN Blood Urea Nitrogen 111 mg/dL (7-18); Bicarbonate 15 mmol/L (21-32); Bilirubin Total 0.3 mg/dL (0.2-1.0); Glucose Level 114 mg/dL (74-106); Protein, Total 6.2 g/dL (6.4-8.2); Sodium Level 142 mmol/L (136-145)
[2019-04-25 07:05] LABS: ALT/SGPT < 6 U/L (12-78)
[2019-04-25 07:06] LABS: Potassium 2.7 mmol/L (3.5-5.1)
[2019-04-25 07:39] LABS: Anisocytosis 1+; Blood Morphology Comment NOTED (NOT SEEN); Platelet Estimate DECR; Poikilocytosis 1+; Target Cells 1+
[2019-04-25] MEDS ORDERED: KCL 20 MEQ/100 mL IVPB 20 MEQ/100 ML BAG IV SCH ×2 (08:00→13:00)
[2019-04-25] MEDS: CEFEPIME/SWI 1gm 10 ML IVP SCH ×2 (08:27→21:09)
[2019-04-25] MEDS: PANTOPRAZOLE 40 MG INJ IVP SCH ×2 (08:28→21:09)
[2019-04-25] MEDS ORDERED: NA CHLORIDE 0.9% 1,000 ML IV SCH (09:00)
[2019-04-25] MEDS ORDERED: POTASSIUM CL 60 MEQ in NA CHLORIDE 0.9% 500 ML IV SCH (09:00)
--- NOTE | 2019-04-25 11:44 | P.PN ---
Subjective Date of Service: 04/25/19 Primary Care Provider: Shala Sanchez Chief Complaint: AMS Patient seen and examined at bedside with RN. Chart reviewed. Case discussed with family member at bedside. Daughter was a medical power employee benefits attorney is at bedside. Advised to keep patient NPO however states that she would not like to keep her mom hungry. Educated regarding aspiration related pneumonia. Stated that she would agree to thicken food however will not keep her mom hungry. Refuse to get speech therapy consultation here in the hospital. Currently also refusing hemodialysis. Was offered hospice care given the advanced dementia along with brain atrophy along with end-stage renal disease. Daughter also declined that at this time. States that she just wants her mom to be hydrated and then discharged home to be taken care by her at the house. Review of Systems 10-point ROS is otherwise unremarkable Physical Examination - Vital Signs Temperature: 98.3 F Blood Pressure: 152/65 Pulse: 61 Respirations: 14 Pulse Ox (%): 98 - Physical Exam General: Alert, In no apparent distress, Oriented x1, Cachectic, Demented Respiratory: Normal air movement, Expiratory wheezes Cardiovascular: Regular rate/rhythm, Normal S1 S2 Gastrointestinal: Normal bowel sounds, No tenderness Musculoskeletal: No tenderness Integumentary: No rashes Neurological: Normal tone, Normal affect, Abnormal speech, Abnormal strength Lymphatics: No axilla or inguinal lymphadenopathy - Studies Medications List Reviewed: Yes Assessment And Plan - Current Problems (Diagnosis) (1) Acute kidney injury superimposed on CKD Onset Date: 08/27/17 Current Visit: No Status: Acute Plan: CARMEN most likely 2.2 to Dehydration -Pt with Decrease PO intake for past 2 days -BUN.CR improving today. Now patient is at her baseline -will continue with the IV fluids until patient can take p.o. intake -Will recheck BUN.CR tomorrow a.m. -Nephrology consulted. Appreciated Reccs -family is refusing hemodialysis at this time also refusing hospice care at this time (2) Altered mental status Current Visit: Yes Status: Acute Plan: AMS 2.2 to Low BP and BS versus UTI versus advanced dementia -At baseline patient with Dementia aaox 1. -Currently at baseline now -Head Ct with No new changes Qualifiers: Altered mental status type: unspecified Qualified Code(s): R41.82 - Altered mental status, unspecified (3) Diarrhea Onset Date: 02/13/18 Current Visit: No Status: Resolved Plan: Diarrhea for past 2 days most likely 2.2 to CKD -resolving now. -stool cultures pending at this time -will continue to follow up with stool culture here in the hospital Qualifiers: Diarrhea type: unspecified type Qualified Code(s): R19.7 - Diarrhea, unspecified (4) Atrial fibrillation Onset Date: 12/13/17 Current Visit: No Status: Chronic Plan: Chronic Atrial Fib -currently on digoxin and Lasix. Plavix and aspirin on hold at this time Qualifiers: Atrial fibrillation type: chronic (5) CHF (congestive heart failure) Onset Date: 12/13/17 Current Visit: No Status: Chronic Plan: CHF with EF of 20% on last echo. -S/p Pacemaker and defib placement -Will restart on home medication -Monitor for fluid overload with current Fluids Qualifiers: Heart failure type: systolic Heart failure chronicity: chronic Qualified Code(s): I50.22 - Chronic systolic (congestive) heart failure (6) Dementia Onset Date: 08/27/17 Current Visit: No Status: Chronic Plan: Sever Dementia now are at baseline -Head CT with Severe Brain atropy and Chronic Ischemia Qualifiers: Dementia type: unspecified type Dementia behavioral disturbance: without behavioral disturbance Qualified Code(s): F03.90 - Unspecified dementia without behavioral disturbance (7) Diabetes mellitus Onset Date: 12/13/17 Current Visit: No Status: Chronic Plan: Will continue to monitor blood sugar q.1 hr blood sugar stabilizes since patient is still having poor PO intake. Not able to tolerate p.o. due to aspiration however family wanting to feed patient. Will try with thickened liquid today. If aspirating most keep patient NPO and continue to do q.1 hr blood sugar. Qualifiers: Diabetes mellitus type: type 2 Diabetes mellitus senior care insulin use: without senior care use Diabetes mellitus complication status: with circulatory complication Diabetes mellitus complication detail: with peripheral angiopathy without gangrene Qualified Code(s): E11.51 - Type 2 diabetes mellitus with diabetic peripheral angiopathy without gangrene (8) History of automatic internal cardiac defibrillator (AICD) Current Visit: No Status: Chronic (9) Hx of right BKA Current Visit: No Status: Chronic (10) Hypertension Onset Date: 08/27/17 Current Visit: No Status: Chronic Qualifiers: Hypertension type: essential hypertension (11) Malnutrition Onset Date: 12/13/17 Current Visit: No Status: Chronic Qualifiers: Malnutrition type: protein-calorie malnutrition Protein-calorie malnutrition severity: severe Qualified Code(s): E43 - Unspecified severe protein-calorie malnutrition (12) Pressure ulcer of coccygeal region, stage 3 Onset Date: 04/09/18 Current Visit: No Status: Chronic (13) CAD (coronary artery disease) Onset Date: 08/27/17 Current Visit: No Status: Chronic Qualifiers: Coronary Disease-Associated Artery/Lesion type: [place] artery [place] vs. transplanted heart: [place] heart Associated angina: without angina Qualified Code(s): I25.10 - Atherosclerotic heart disease of [place] coronary artery without angina pectoris
[2019-04-25 12:43] LABS: Potassium 2.8 mmol/L (3.5-5.1)
--- NOTE | 2019-04-25 14:19 | EKG ---
Test Date: 2019-04-24 Test Time: 08:22:49 Groundskeeping Maintenance Worker: KAYE MEASUREMENT RESULTS: Intervals: Rate: 60 UT: QRSD: 184 QT: 394 QTc: 394 [place]: P: UT: QRS: 198 T: 29 INTERPRETIVE STATEMENTS: AV sequential or dual chamber electronic pacemaker Compared to ECG 11/25/2018 13:53:33 Ventricular-paced complex(es) or rhythm no longer present Electronically Signed On 04-25-19 14:13:54 CDT by Arik Roa
[2019-04-25] MEDS: SODIUM BICARB 325 MG TAB PO SCH ×2 (21:00→21:09)
[2019-04-25] MEDS ORDERED: NACHLORIDE 0.45% 1,000 ML IV ONE (21:06)
[2019-04-25] MEDS ORDERED: KCL 20 MEQ/100 mL IVPB 20 MEQ/100 ML BAG IV ONE (21:07)
[2019-04-25] MEDS: NACHLORIDE 0.45% 1,000 ML with POTASSIUM CL 20 MEQ IV SCH ×2 (21:08)
[2019-04-25 22:06] LABS: Potassium 3.4 mmol/L (3.5-5.1)
--- NOTE | 2019-04-26 01:25 | PN ---
Date of Progress Note: 04/25/2019 Chief Complaint: Acute kidney injury. History Of Present Illness: Acute kidney injury, severe, secondary to renal hypoperfusion and hypovolemia, complicated by hypokalemia, nonoliguric. The patient was found to have elevated creatinine up to 4.5. Baseline creatinine was ranging from 2.5 to 3.6. The patient has multiple medical problems including history of diabetes mellitus, hypertension, advanced dementia, atrial fibrillation. The patient is admitted to the hospital because of generalized weakness. She was found to have acute on chronic kidney injury. The patient was started on IV fluids and urine output has not improved significantly. The patient is reluctant to start dialysis. She is tolerating IV fluids. On previous occasion back in 2017, creatinine was 2.1 up to 3.9. In November 2018, creatinine level was 4.02. On arrival to the hospital, the patient was found to have severe hyperazotemia. Creatinine level was 5.87, GFR is less than 10. Patient was found to have hypokalemia and received potassium replacement. Potassium level today was 2.8. The patient has metabolic acidosis. Bicarbonate is 16. ROS: The patient denies nausea, vomiting. Physical Examination: Lungs: Clear to auscultation bilaterally. Heart: S1, S2. Abdomen: Soft, benign. Extremities: Slight edema. Laboratory Work: Uric acid 7.1, phosphorus 6.0, wbc 11.5, hemoglobin 10.4, creatinine 5.87, BUN 113, potassium 2.7. Sodium 143, glucose 69, magnesium 1.9. Impression And Plan: 1. Acute kidney injury superimposed on chronic kidney disease stage 4. Altered mental status. Patient has diarrhea. She has history of dementia. Urine output is not improving significantly, although patient is tolerating IV fluids. Patient is on potassium replacement and potassium level will be re- evaluated. The patient may need treatment with bicarbonate to control metabolic acidosis, which is non-anion gap, likely secondary to diarrhea and potentiated by the fact that the patient has advanced chronic kidney disease. 2. Hypertension, blood pressure controlled. Hold GUREDEP inhibitor. 3. Renal osteodystrophy. Monitor phosphorus level. The patient will start binders. Continue IV fluids. Avoid nonsteroidal anti-inflammatory medication. I spent total 36 min including 26 min to coordinate care plan. SAL Voice ID: [id number] Report ID: [id number] MTDD
--- NOTE | 2019-04-26 07:53 | RAD REPORT ---
EXAM DESCRIPTION: US - Renal Ultrasound-Complete - 04/25/2019 9:49 pm CLINICAL HISTORY: Acute kidney injury COMPARISON: None. FINDINGS: The right kidney measures 9.5 x 4.1 x 6.1 cm. The left kidney measures 7.8 x 4.0 x 4.3 cm . Cortical thickness is normal. There is a pronounced increase in cortical echogenicity consistent wi th significant medical renal disease. No hydronephrosis or suspicious renal mass. A 15 mm cyst presen t in the right kidney. Bladder is contracted around a [place] catheter. IMPRESSION: Prominent medical renal disease pattern. No hydronephrosis or suspicious mass. No other significant findings.
[2019-04-26] MEDS: SODIUM BICARB 325 MG TAB PO SCH ×2 (08:58→20:56)
[2019-04-26] MEDS: CEFEPIME/SWI 1gm 10 ML IVP SCH (09:00)
[2019-04-26] MEDS: PANTOPRAZOLE 40 MG INJ IVP SCH ×2 (09:01→20:56)
[2019-04-26] MEDS: Meropenem 1,000 MG in NA CHLORIDE 0.9% 100 ML IV SCH ×2 (11:38→16:16)
--- NOTE | 2019-04-26 11:52 | P.PN ---
Subjective Date of Service: 04/26/19 Primary Care Provider: Shala Sanchez Chief Complaint: AMS Patient seen and examined at bedside with RN. Chart reviewed. Case discussed with family member at bedside. Daughter iss a medical power real estate attorney is at bedside. Advised to keep patient NPO however states that she would not like to keep her mom hungry. Educated regarding aspiration related pneumonia. Stated that she would agree to thicken food however will not keep her mom hungry. Refuse to get speech therapy consultation here in the hospital. Currently also refusing hemodialysis. Was offered hospice care given the advanced dementia along with brain atrophy along with end-stage renal disease. Daughter also declined that at this time. States that she just wants her mom to be hydrated and then discharged home to be taken care by her at the house. Review of Systems 10-point ROS is otherwise unremarkable Physical Examination - Vital Signs Temperature: 98.4 F Blood Pressure: 160/86 Pulse: 64 Respirations: 20 Pulse Ox (%): 98 - Physical Exam General: Alert, In no apparent distress, Cachectic, Demented HEENT: Atraumatic, PERRLA, EOMI Neck: Supple, JVD not distended Respiratory: Clear to auscultation bilaterally, Normal air movement Cardiovascular: Regular rate/rhythm, Normal S1 S2 Gastrointestinal: Normal bowel sounds, No tenderness Musculoskeletal: No tenderness Integumentary: No rashes Neurological: Normal speech, Normal tone, Normal affect Lymphatics: No axilla or inguinal lymphadenopathy - Studies Microbiology Data (last 24 hrs): 04/24/19 06:57 Blood - Blood Anaerobic Blood Culture - Final 04/24/19 10:20 Catheterized Urine [place] Count - Final >100,000 CFU/ML. 04/24/19 10:20 Catheterized Urine - Final Enterobacter Aerogenes 04/24/19 06:20 Blood - Blood Anaerobic Blood Culture - Final Medications List Reviewed: Yes Assessment And Plan - Current Problems (Diagnosis) (1) Acute kidney injury superimposed on CKD Onset Date: 08/27/17 Current Visit: No Status: Acute Plan: CARMEN most likely 2.2 to Dehydration -Pt with Decrease PO intake for past 2 days before admission -BUN.CR improving today. Now patient is at her baseline -will continue with the IV fluids until patient can take p.o. intake -Will recheck BUN.CR tomorrow a.m. -Nephrology consulted. Appreciated Reccs -family is refusing hemodialysis at this time also refusing hospice care at this time (2) UTI (urinary tract infection) Onset Date: 04/11/18 Current Visit: No Status: Acute Plan: Urinary tract infection -urine culture positive for enterococcus -only sensitive to IV meropenem started that here in the hospital Qualifiers: Urinary tract infection type: acute cystitis Hematuria presence: without hematuria Qualified Code(s): N30.00 - Acute cystitis without hematuria (3) Altered mental status Current Visit: Yes Status: Acute Plan: AMS 2.2 to Low BP and BS versus UTI versus advanced dementia versus toxic encephalopathy -At baseline patient with Dementia aaox 1. -Currently at baseline now -Head Ct with No new changes Qualifiers: Altered mental status type: unspecified Qualified Code(s): R41.82 - Altered mental status, unspecified (4) Diarrhea Onset Date: 02/13/18 Current Visit: No Status: Resolved Plan: Diarrhea for past 2 days most likely 2.2 to CKD -resolving now. -stool cultures pending at this time -will continue to follow up with stool culture here in the hospital Qualifiers: Diarrhea type: unspecified type Qualified Code(s): R19.7 - Diarrhea, unspecified (5) Atrial fibrillation Onset Date: 12/13/17 Current Visit: No Status: Chronic Plan: Chronic Atrial Fib -currently on digoxin and Lasix. Plavix and aspirin on hold at this time Qualifiers: Atrial fibrillation type: chronic (6) CHF (congestive heart failure) Onset Date: 12/13/17 Current Visit: No Status: Chronic Plan: CHF with EF of 20% on last echo. -S/p Pacemaker and defib placement -Will restart on home medication -Monitor for fluid overload with current Fluids Qualifiers: Heart failure type: systolic Heart failure chronicity: chronic Qualified Code(s): I50.22 - Chronic systolic (congestive) heart failure (7) Dementia Onset Date: 08/27/17 Current Visit: No Status: Chronic Plan: Sever Dementia now are at baseline -Head CT with Severe Brain atropy and Chronic Ischemia Qualifiers: Dementia type: unspecified type Dementia behavioral disturbance: without behavioral disturbance Qualified Code(s): F03.90 - Unspecified dementia without behavioral disturbance (8) Diabetes mellitus Onset Date: 12/13/17 Current Visit: No Status: Chronic Plan: Will continue to monitor blood sugar q.1 hr blood sugar stabilizes since patient is still having poor PO intake. Not able to tolerate p.o. due to aspiration however family wanting to feed patient. Will try with thickened liquid today. If aspirating most keep patient NPO and continue to do q.1 hr blood sugar. Qualifiers: Diabetes mellitus type: type 2 Diabetes mellitus ferry terminal supervisor insulin use: without detention use Diabetes mellitus complication status: with circulatory complication Diabetes mellitus complication detail: with peripheral angiopathy without gangrene Qualified Code(s): E11.51 - Type 2 diabetes mellitus with diabetic peripheral angiopathy without gangrene (9) History of automatic internal cardiac defibrillator (AICD) Current Visit: No Status: Chronic (10) Hx of right BKA Current Visit: No Status: Chronic (11) Hypertension Onset Date: 08/27/17 Current Visit: No Status: Chronic Qualifiers: Hypertension type: essential hypertension (12) Malnutrition Onset Date: 12/13/17 Current Visit: No Status: Chronic Qualifiers: Malnutrition type: protein-calorie malnutrition Protein-calorie malnutrition severity: severe Qualified Code(s): E43 - Unspecified severe protein-calorie malnutrition (13) Pressure ulcer of coccygeal region, stage 3 Onset Date: 04/09/18 Current Visit: No Status: Chronic (14) CAD (coronary artery disease) Onset Date: 08/27/17 Current Visit: No Status: Chronic Qualifiers: Coronary Disease-Associated Artery/Lesion type: [place] artery [place] vs. transplanted heart: [place] heart Associated angina: without angina Qualified Code(s): I25.10 - Atherosclerotic heart disease of [place] coronary artery without angina pectoris
[2019-04-26 13:48] LABS: AST/SGOT 11 U/L (15-37); Albumin 1.9 g/dL (3.4-5.0); Alkaline Phosphatase 49 U/L (45-117); BUN Blood Urea Nitrogen 103 mg/dL (7-18); Bicarbonate 16 mmol/L (21-32); Bilirubin Total 0.2 mg/dL (0.2-1.0); Glucose Level 85 mg/dL (74-106); Potassium 3.6 mmol/L (3.5-5.1); Protein, Total 5.6 g/dL (6.4-8.2); Sodium Level 143 mmol/L (136-145)
[2019-04-26 14:02] LABS: ALT/SGPT < 6 U/L (12-78)
[2019-04-26 16:09] LABS: Absolute Lymphocytes (CBC) 2.1 K/uL (0.7-4.9); Basophils % 0.1 % (0-1.3); Lymphocytes % 23.1 % (15.3-44.8); MPV 6.7 fL (7.6-11.3); RBC Red Blood Cell Count 3.09 M/uL (3.86-4.86)
[2019-04-26] MEDS: METRONIDAZOLE 500mg IVPB 500 MG/100 ML BAG IV SCH (16:15)
[2019-04-26] MEDS ORDERED: Meropenem 1000 MG/VIAL IV SCH (17:00)
[2019-04-26] MEDS: NACHLORIDE 0.45% 1,000 ML with POTASSIUM CL 20 MEQ IV SCH ×4 (17:12→19:37)
[2019-04-26] MEDS ORDERED: KCL 20 MEQ/100 mL IVPB 20 MEQ/100 ML BAG IV SCH (18:00)
[2019-04-26] MEDS ORDERED: CALCIUM CARBONATE CHEW 500MG TAB PO PRN (22:09)
[2019-04-27] MEDS: METRONIDAZOLE 500mg IVPB 500 MG/100 ML BAG IV SCH ×3 (01:07→17:26)
[2019-04-27] MEDS: Meropenem 1,000 MG in NA CHLORIDE 0.9% 100 ML IV SCH ×2 (01:08→09:38)
--- NOTE | 2019-04-27 03:35 | PN ---
Date of Progress Note: 04/26/2019 Chief Complaint: Acute kidney injury. History Of Present Illness: Acute kidney injury secondary to renal hypoperfusion and hypovolemia complicated by hypokalemia and patient has nonoliguric urine output. Patient was found to have elevated creatinine up to 4.5. Baseline creatinine was ranging from 2.5 to 3.6. Patient has multiple medical problems including history of diabetes mellitus, hypertension, advanced dementia, atrial fibrillation. She was admitted to the hospital because of generalized weakness. Patient is started on IV fluids, and urine output has not improved significantly. Patient received IV sodium bicarbonate for treatment of metabolic acidosis. Patient required potassium replacement. Review of Systems: Patient denies new complaints. Physical Examination: Lungs: Clear to auscultation bilaterally. Heart: S1 and S2. Abdomen: Soft, benign. Extremities: Slight edema. Laboratory Work: Hemoglobin 8.1, WBC 8.9, platelet count is 15,000. Sodium 143 , potassium 3.6, chloride 115, bicarbonate 16, creatinine 5.3, BUN 103, calcium 6.8, total protein 5.6, albumin 1.9. Impression And Plan: 1. Acute kidney injury on chronic kidney disease. Patient has metabolic acidosis, nonanion gap. Patient will have IV sodium bicarbonate and sodium bicarbonate tablets to correct metabolic acidosis. Patient is reluctant to start dialysis. 2. Hypertension. Blood pressure controlled. Continue medications. Avoid angiotensin receptor mic and avoid GURDEEP inhibitor. 3. Hypocalcemia. Plan is to check ionized calcium and hyperphosphatemia. Start calcium carbonate tablets with meals to control hyperphosphatemia. LEENA/JOSHUA Voice ID: [id number] Report ID: [id number] MORAIMA
[2019-04-27 06:07] LABS: Absolute Lymphocytes (CBC) 1.6 K/uL (0.7-4.9); Basophils % 0.2 % (0-1.3); Hematocrit 24.4 % (36.0-45.0); Lymphocytes % 18.6 % (15.3-44.8); MPV 9.5 fL (7.6-11.3); RBC Red Blood Cell Count 3.05 M/uL (3.86-4.86)
[2019-04-27 06:19] LABS: AST/SGOT 9 U/L (15-37); Albumin 1.9 g/dL (3.4-5.0); Alkaline Phosphatase 50 U/L (45-117); BUN Blood Urea Nitrogen 95 mg/dL (7-18); Bicarbonate 16 mmol/L (21-32); Bilirubin Total 0.3 mg/dL (0.2-1.0); Glucose Level 71 mg/dL (74-106); Potassium 3.1 mmol/L (3.5-5.1); Protein, Total 5.7 g/dL (6.4-8.2); Sodium Level 145 mmol/L (136-145)
[2019-04-27 06:21] LABS: ALT/SGPT < 6 U/L (12-78)
[2019-04-27 07:07] LABS: Anisocytosis 1+; Blood Morphology Comment NOTED (NOT SEEN); Burr Cells 1+; Platelet Estimate DECR; Poikilocytosis 1+; Target Cells 1+; Urine White Blood Cell Casts OK
[2019-04-27 07:08] LABS: Rouleau NOTED; Teardrop Cell 1+
[2019-04-27] MEDS: KCL 20 MEQ/100 mL IVPB 20 MEQ/100 ML BAG IV SCH ×2 (09:38→13:05)
[2019-04-27] MEDS: SODIUM BICARB 325 MG TAB PO SCH ×2 (09:39→21:19)
[2019-04-27] MEDS: PANTOPRAZOLE 40 MG INJ IVP SCH ×2 (09:39→21:19)
--- NOTE | 2019-04-27 12:43 | P.PN ---
Subjective Date of Service: 04/27/19 Primary Care Provider: Shala Sanchez Chief Complaint: AMS Patient seen and examined at bedside with RN. Chart reviewed. Case discussed with daughter over the phone. Currently doing well overall. Will give PICC line done today for IV antibiotics Review of Systems 10-point ROS is otherwise unremarkable Physical Examination - Vital Signs Temperature: 99.0 F Blood Pressure: 173/74 Pulse: 60 Respirations: 15 Pulse Ox (%): 98 - Physical Exam General: Alert, Oriented x1, Cachectic Respiratory: Normal air movement Cardiovascular: Regular rate/rhythm, Normal S1 S2 Gastrointestinal: Normal bowel sounds, No tenderness Musculoskeletal: No tenderness Integumentary: No rashes Neurological: Normal speech, Normal tone, Normal affect Lymphatics: No axilla or inguinal lymphadenopathy - Studies Microbiology Data (last 24 hrs): 04/24/19 06:57 Blood - Blood Anaerobic Blood Culture - Final Medications List Reviewed: Yes Assessment And Plan - Current Problems (Diagnosis) (1) Acute kidney injury superimposed on CKD Onset Date: 08/27/17 Current Visit: No Status: Acute Plan: CARMEN most likely 2.2 to Dehydration -Pt with Decrease PO intake for past 2 days before admission -BUN.CR improving today. -encourage p.o. intake at this time. Will stop IV fluids today -Nephrology consulted. Appreciated Reccs -family is refusing hemodialysis at this time also refusing hospice care at this time (2) UTI (urinary tract infection) Onset Date: 04/11/18 Current Visit: No Status: Acute Plan: Urinary tract infection -urine culture positive for enterococcus -on IV meropenem -will get a PICC line and patient will need total of 14 days of therapy Qualifiers: Urinary tract infection type: acute cystitis Hematuria presence: without hematuria Qualified Code(s): N30.00 - Acute cystitis without hematuria (3) Altered mental status Current Visit: Yes Status: Acute Plan: AMS 2.2 to advanced dementia versus toxic encephalopathy -Currently at baseline now -Head Ct with No new changes Qualifiers: Altered mental status type: unspecified Qualified Code(s): R41.82 - Altered mental status, unspecified (4) Diarrhea Onset Date: 02/13/18 Current Visit: No Status: Acute Plan: Diarrhea for past 2 days most likely infectious process -diarrhea is resolved now -stool cultures positive for C. diff -started on Flagyl here in the hospital Qualifiers: Diarrhea type: unspecified type Qualified Code(s): R19.7 - Diarrhea, unspecified (5) Atrial fibrillation Onset Date: 12/13/17 Current Visit: No Status: Chronic Plan: Chronic Atrial Fib -currently on digoxin and Lasix. Plavix and aspirin on hold at this time Qualifiers: Atrial fibrillation type: chronic (6) CHF (congestive heart failure) Onset Date: 12/13/17 Current Visit: No Status: Chronic Plan: CHF with EF of 20% on last echo. -S/p Pacemaker and defib placement -Will restart on home medication -Monitor for fluid overload with current Fluids Qualifiers: Heart failure type: systolic Heart failure chronicity: chronic Qualified Code(s): I50.22 - Chronic systolic (congestive) heart failure (7) Dementia Onset Date: 08/27/17 Current Visit: No Status: Chronic Plan: Sever Dementia now are at baseline -Head CT with Severe Brain atropy and Chronic Ischemia Qualifiers: Dementia type: unspecified type Dementia behavioral disturbance: without behavioral disturbance Qualified Code(s): F03.90 - Unspecified dementia without behavioral disturbance (8) Diabetes mellitus Onset Date: 12/13/17 Current Visit: No Status: Chronic Plan: Will continue to monitor blood sugar q.1 hr blood sugar stabilizes since patient is still having poor PO intake. Not able to tolerate p.o. due to aspiration however family wanting to feed patient. Will try with thickened liquid today. If aspirating most keep patient NPO and continue to do q.1 hr blood sugar. Qualifiers: Diabetes mellitus type: type 2 Diabetes mellitus [place] insulin use: without long term care pharmacist use Diabetes mellitus complication status: with circulatory complication Diabetes mellitus complication detail: with peripheral angiopathy without gangrene Qualified Code(s): E11.51 - Type 2 diabetes mellitus with diabetic peripheral angiopathy without gangrene (9) History of automatic internal cardiac defibrillator (AICD) Current Visit: No Status: Chronic (10) Hx of right BKA Current Visit: No Status: Chronic (11) Hypertension Onset Date: 08/27/17 Current Visit: No Status: Chronic Qualifiers: Hypertension type: essential hypertension (12) Malnutrition Onset Date: 12/13/17 Current Visit: No Status: Chronic Qualifiers: Malnutrition type: protein-calorie malnutrition Protein-calorie malnutrition severity: severe Qualified Code(s): E43 - Unspecified severe protein-calorie malnutrition (13) Pressure ulcer of coccygeal region, stage 3 Onset Date: 04/09/18 Current Visit: No Status: Chronic (14) CAD (coronary artery disease) Onset Date: 08/27/17 Current Visit: No Status: Chronic Qualifiers: Coronary Disease-Associated Artery/Lesion type: [place] artery [place] vs. transplanted heart: [place] heart Associated angina: without angina Qualified Code(s): I25.10 - Atherosclerotic heart disease of [place] coronary artery without angina pectoris - Plan Will continue with IV antibiotics here in the hospital will get a PICC line or. Case management consulted for placement for IV antibiotics. Daughter iss a medical power manager music is at bedside. -Advised to keep patient NPO however states that she would not like to keep her mom hungry. Educated regarding aspiration related pneumonia. Stated that she would agree to thicken food however will not keep her mom hungry. Refuse to get speech therapy consultation here in the hospital. -Currently also refusing hemodialysis. States that she just wants her mom to be hydrated and then discharged home to be taken care by her at the house. -Was offered hospice care given the advanced dementia along with brain atrophy along with end-stage renal disease. Daughter declined that at this time. Discharge Plan: Other Plan to discharge in: Greater than 2 days - Code Status/Comfort Care Code Status Assessed: Yes Critical Care: No
[2019-04-27] MEDS: NACHLORIDE 0.45% 1,000 ML with POTASSIUM CL 20 MEQ IV SCH ×2 (13:24)
[2019-04-27] MEDS: CALCIUM CARB 500MG/VIT D 200 IU TAB PO SCH ×2 (21:00→21:19)
[2019-04-28] MEDS: METRONIDAZOLE 500mg IVPB 500 MG/100 ML BAG IV SCH ×3 (00:45→17:00)
--- NOTE | 2019-04-28 02:24 | PN ---
Date of Progress Note: 04/27/2019 Chief Complaint: Acute kidney injury on advanced chronic kidney disease. History Of Present Illness: Patient has history of chronic kidney disease, stage 4. She presented to the hospital because of generalized weakness. Recently, she developed diarrhea. She was found to have hypovolemia and severe acute kidney injury, nonoliguric secondary to renal hypoperfusion. Patient denies nonsteroidal anti-inflammatory medication. Patient has nonoliguric urine output. She was started on IV fluids. Creatinine level has not improved significantly. Patient was found to have electrolyte abnormalities including hypokalemia and metabolic acidosis. She received potassium replacement and IV. Sodium bicarbonate infusion was started along with sodium bicarbonate tablet. The patient has history of multiple medical problems including history of diabetes, hypertension, diabetic kidney, dementia, atrial fibrillation. She is refusing dialysis. Review of Systems: Denies chest pain, palpitation. Denies shortness of breath, nausea, vomiting. Physical Examination: Lungs: Clear to auscultation bilaterally. Heart: S1, S2. Abdomen: Soft, benign. Extremities: Slight edema in both ankle. Laboratory Data: Sodium 145, potassium 3.1, chloride 116, CO2 of 16, BUN 95, creatinine 5.10, calcium 6.7, total protein 5.7, albumin 1.9. Impression And Plan: 1. Acute kidney injury on chronic kidney disease. Plan is to continue IV fluids. Patient refused hemodialysis. She started on Flagyl for diarrhea and possible Clostridium difficile. 2. Hypertension. Monitor blood pressure and avoid angiotensin receptor mic and avoid GURDEEP inhibitor because of acute kidney injury. 3. Hypocalcemia. Plan is to check ionized calcium and monitor phosphorus level. Advanced treatment for hyperphosphatemia. Currently hypocalcemia is asymptomatic. 4. Chronic kidney disease, advanced. Patient may need to start dialysis if renal function does not improve. 5. Metabolic acidosis. Continue bicarbonate replacement and monitor potassium , magnesium level closely. Continue IV fluids with IV potassium replacement. I spent total 36 min including 25 min to coordinate care plan. LEENA/JOSHUA Voice ID: [id number] Report ID: [id number] MORAIMA
[2019-04-28] MEDS: SODIUM BICARB 325 MG TAB PO SCH ×4 (09:00→22:34)
[2019-04-28] MEDS: COLLAGENASE 30 GM OINTMENT TOP SCH (09:00)
[2019-04-28] MEDS: NACHLORIDE 0.45% 1,000 ML with POTASSIUM CL 20 MEQ IV SCH ×2 (09:36)
[2019-04-28] MEDS: Meropenem 500 MG in NA CHLORIDE 0.9% 100 ML IV SCH (10:02)
[2019-04-28] MEDS: CALCIUM CARB 500MG/VIT D 200 IU TAB PO SCH ×2 (10:04→22:33)
[2019-04-28] MEDS: PANTOPRAZOLE 40 MG INJ IVP SCH ×2 (10:06→22:31)
[2019-04-28 10:54] LABS: Potassium 3.2 mmol/L (3.5-5.1)
--- NOTE | 2019-04-28 12:06 | P.PN ---
Subjective Date of Service: 04/28/19 Primary Care Provider: Shala Sanchez Chief Complaint: AMS Patient seen and examined at bedside with RN. Chart reviewed. Case discussed with daughter over the phone. Currently doing well overall. Will give PICC line done today for IV antibiotics. Picc was not done yesterday Review of Systems 10-point ROS is otherwise unremarkable Physical Examination - Vital Signs Temperature: 98.1 F Blood Pressure: 152/61 Pulse: 60 Respirations: 18 Pulse Ox (%): 99 - Physical Exam General: Alert, In no apparent distress, Cachectic Neck: Supple, JVD not distended Respiratory: Clear to auscultation bilaterally, Normal air movement Cardiovascular: Regular rate/rhythm, Normal S1 S2 Gastrointestinal: Normal bowel sounds, No tenderness Musculoskeletal: No tenderness Integumentary: No rashes, Tenderness/swelling Neurological: Normal speech, Normal tone, Normal affect Lymphatics: No axilla or inguinal lymphadenopathy - Studies Medications List Reviewed: Yes Assessment And Plan - Current Problems (Diagnosis) (1) Acute kidney injury superimposed on CKD Onset Date: 08/27/17 Current Visit: No Status: Acute Plan: CARMEN most likely 2.2 to Dehydration -Pt with Decrease PO intake for past 2 days before admission -BUN.CR improving today. -encourage p.o. intake at this time. -Nephrology consulted. Appreciated Reccs -family is refusing hemodialysis at this time also refusing hospice care at this time (2) UTI (urinary tract infection) Onset Date: 04/11/18 Current Visit: No Status: Acute Plan: Urinary tract infection -urine culture positive for enterococcus -on IV meropenem. Will need for 14 days -will get a PICC line and patient will need total of 14 days of therapy Qualifiers: Urinary tract infection type: acute cystitis Hematuria presence: without hematuria Qualified Code(s): N30.00 - Acute cystitis without hematuria (3) Altered mental status Current Visit: Yes Status: Resolved Plan: AMS 2.2 to advanced dementia versus toxic encephalopathy -Currently at baseline now -Head Ct with No new changes Qualifiers: Altered mental status type: unspecified Qualified Code(s): R41.82 - Altered mental status, unspecified (4) Diarrhea Onset Date: 02/13/18 Current Visit: No Status: Acute Plan: Diarrhea for past 2 days most likely infectious process -diarrhea is resolved now -stool cultures positive for C. diff -started on Flagyl here in the hospital Qualifiers: Diarrhea type: unspecified type Qualified Code(s): R19.7 - Diarrhea, unspecified (5) Atrial fibrillation Onset Date: 12/13/17 Current Visit: No Status: Chronic Plan: Chronic Atrial Fib -currently on digoxin and Lasix. Plavix and aspirin on hold at this time Qualifiers: Atrial fibrillation type: chronic (6) CHF (congestive heart failure) Onset Date: 12/13/17 Current Visit: No Status: Chronic Plan: CHF with EF of 20% on last echo. -S/p Pacemaker and defib placement -Will restart on home medication -Monitor for fluid overload with current Fluids Qualifiers: Heart failure type: systolic Heart failure chronicity: chronic Qualified Code(s): I50.22 - Chronic systolic (congestive) heart failure (7) Dementia Onset Date: 08/27/17 Current Visit: No Status: Chronic Plan: Sever Dementia now are at baseline -Head CT with Severe Brain atropy and Chronic Ischemia Qualifiers: Dementia type: unspecified type Dementia behavioral disturbance: without behavioral disturbance Qualified Code(s): F03.90 - Unspecified dementia without behavioral disturbance (8) Diabetes mellitus Onset Date: 12/13/17 Current Visit: No Status: Chronic Qualifiers: Diabetes mellitus type: type 2 Diabetes mellitus terminal superintendent insulin use: without group home use Diabetes mellitus complication status: with circulatory complication Diabetes mellitus complication detail: with peripheral angiopathy without gangrene Qualified Code(s): E11.51 - Type 2 diabetes mellitus with diabetic peripheral angiopathy without gangrene (9) History of automatic internal cardiac defibrillator (AICD) Current Visit: No Status: Chronic (10) Hx of right BKA Current Visit: No Status: Chronic (11) Hypertension Onset Date: 08/27/17 Current Visit: No Status: Chronic Qualifiers: Hypertension type: essential hypertension (12) Malnutrition Onset Date: 12/13/17 Current Visit: No Status: Chronic Qualifiers: Malnutrition type: protein-calorie malnutrition Protein-calorie malnutrition severity: severe Qualified Code(s): E43 - Unspecified severe protein-calorie malnutrition (13) Pressure ulcer of coccygeal region, stage 3 Onset Date: 04/09/18 Current Visit: No Status: Chronic (14) CAD (coronary artery disease) Onset Date: 08/27/17 Current Visit: No Status: Chronic Qualifiers: Coronary Disease-Associated Artery/Lesion type: [place] artery [place] vs. transplanted heart: [place] heart Associated angina: without angina Qualified Code(s): I25.10 - Atherosclerotic heart disease of [place] coronary artery without angina pectoris - Plan Will continue with IV antibiotics here in the hospital will get a PICC line or. Case management consulted for placement for IV antibiotics. Daughter iss a medical power commercial litigation attorney is at bedside. -Advised to keep patient NPO however states that she would not like to keep her mom hungry. Educated regarding aspiration related pneumonia. Stated that she would agree to thicken food however will not keep her mom hungry. Refuse to get speech therapy consultation here in the hospital. -Currently also refusing hemodialysis. States that she just wants her mom to be hydrated and then discharged home to be taken care by her at the house. -Was offered hospice care given the advanced dementia along with brain atrophy along with end-stage renal disease. Daughter declined that at this time. Discharge Plan: Home Plan to discharge in: 48 Hours - Code Status/Comfort Care Code Status Assessed: Yes Critical Care: No
[2019-04-28] MEDS ORDERED: POTASSIUM CL SA 10 MEQ TAB PO ONE (13:00)
[2019-04-28] MEDS ORDERED: EPOETIN ALFA 4,000 UNIT/ML VIAL SQ SCH (22:00)
[2019-04-28] MEDS ORDERED: EPOETIN ALFA 4,000 UNIT/ML VIAL ONE (22:51)
--- NOTE | 2019-04-29 00:23 | PN ---
Date of Progress Note: 04/28/2019 Subjective: Patient was admitted with acute kidney injury. Patient still refused by family for any dialysis or renal replacement therapy. Patient is fatigued and confused. Physical Examination: Vital Signs: Blood pressure 108/56, pulse of 60, afebrile. Chest: Decreased entry bilateral base. Heart: S1, S2 systolic murmur. Abdomen: Soft, nontender. Extremities: Right below-knee amputation. Laboratory Data: WBC 8.7, H and H 8/24.4, platelets of 17. Sodium 146, potassium 3.2, bicarb 16, BU N 96, creatinine 4.9, GFR of 10, calcium 6.8. Current Medications: The patient on, its include meropenem, metronidazole, pantoprazole, Zofran, sod ium bicarb 650 b.i.d., KCl. Assessment And Plan: 1.Chronic kidney disease stage 5, progression to end-stage need with uremia, acidosis. Patient is s till refusing dialysis. Understand risks, benefits, alternatives including, which started trending d own. I am going to go ahead and increase sodium bicarb. We will continue hydration. 2.Hypokalemia. We will replace cautiously. 3.Uremic encephalopathy as above. Unfortunately, patient refused dialysis or any renal replacement therapy. 4.Hypocalcemia. We will follow up PTH and vitamin D. 5.Anemia of chronic kidney disease. I will go ahead and send for anemia workup. We will start the patient on Epogen. 6.Urinary tract infection. Continue current antibiotic. We will follow up. 7.Acidosis. 8.Increase bicarb. KLARISSA/JOSHUA Voice ID: [id number] Report ID: [id number]
[2019-04-29] MEDS: METRONIDAZOLE 500mg IVPB 500 MG/100 ML BAG IV SCH ×2 (00:45→09:19)
[2019-04-29] MEDS: NACHLORIDE 0.45% 1,000 ML with POTASSIUM CL 20 MEQ IV SCH ×4 (05:48→07:37)
[2019-04-29 06:30] LABS: Albumin 1.9 g/dL (3.4-5.0); Ferritin 878.7 ng/mL (8-388); Folic Acid, (Folate) 3.1 ng/mL (3.1-17.5); Phosphorus 3.2 mg/dL (2.5-4.9); Potassium 3.2 mmol/L (3.5-5.1); Thyroid Stimulating Hormone 3.74 uIU/mL (0.360-3.740)
[2019-04-29] MEDS: COLLAGENASE 30 GM OINTMENT TOP SCH (09:00)
[2019-04-29] MEDS ORDERED: POTASSIUM CL SA 10 MEQ TAB PO ONE (09:00)
[2019-04-29] MEDS: Meropenem 500 MG in NA CHLORIDE 0.9% 100 ML IV SCH (09:19)
[2019-04-29] MEDS: CALCIUM CARB 500MG/VIT D 200 IU TAB PO SCH (09:20)
[2019-04-29] MEDS: SODIUM BICARB 325 MG TAB PO SCH (09:20)
[2019-04-29] MEDS: PANTOPRAZOLE 40 MG INJ IVP SCH (09:24)
[2019-04-29] MEDS ORDERED: CALCITROL 0.25 MCG CAP PO SCH (10:00)
[2019-04-29 11:02] VITALS: O2SAT 100
--- NOTE | 2019-04-29 12:13 | P.PN ---
Subjective Date of Service: 04/29/19 Primary Care Provider: Shala Sanchez Chief Complaint: AMS Patient seen and examined at bedside with RN. Chart reviewed. Case discussed with nephrology in general surgery at this time. Patient had PICC line attempted x2 however failed. Nephrology was able to have a conversation with the family who agreed with hemodialysis and central line placement. Given the extensive nature of her vasculature it was recommended by general surgery to transfer patient to a higher level of care for vascular surgeon to do the procedure. Review of Systems 10-point ROS is otherwise unremarkable Physical Examination - Vital Signs Temperature: 99.1 F Blood Pressure: 147/67 Pulse: 60 Respirations: 20 Pulse Ox (%): 100 - Physical Exam General: Alert, In no apparent distress, Cachectic Respiratory: Clear to auscultation bilaterally, Normal air movement Cardiovascular: Regular rate/rhythm, Normal S1 S2 Gastrointestinal: Normal bowel sounds, No tenderness Musculoskeletal: No tenderness Integumentary: No rashes Neurological: Normal speech, Normal tone, Normal affect Lymphatics: No axilla or inguinal lymphadenopathy - Studies Medications List Reviewed: Yes Assessment And Plan - Current Problems (Diagnosis) (1) Acute kidney injury superimposed on CKD Onset Date: 08/27/17 Current Visit: No Status: Acute Plan: CARMEN most likely 2.2 to Dehydration -Pt with Decrease PO intake for past 2 days before admission -BUN.CR improving today. -encourage p.o. intake at this time. -Nephrology consulted. Appreciated Reccs -family now agreeable to hemodialysis. -Awaiting transfer to higher level of care for HD catheter placement and central line placement (2) UTI (urinary tract infection) Onset Date: 04/11/18 Current Visit: No Status: Acute Plan: Urinary tract infection -urine culture positive for enterococcus -on IV meropenem will need for total 14 days Qualifiers: Urinary tract infection type: acute cystitis Hematuria presence: without hematuria Qualified Code(s): N30.00 - Acute cystitis without hematuria (3) Altered mental status Current Visit: Yes Status: Resolved Plan: AMS 2.2 to advanced dementia versus toxic encephalopathy -Currently at baseline now -Head Ct with No new changes Qualifiers: Altered mental status type: unspecified Qualified Code(s): R41.82 - Altered mental status, unspecified (4) Diarrhea Onset Date: 02/13/18 Current Visit: No Status: Acute Plan: Diarrhea for past 2 days most likely infectious process -diarrhea is resolved now -stool cultures positive for C. diff -started on Flagyl here in the hospital Qualifiers: Diarrhea type: unspecified type Qualified Code(s): R19.7 - Diarrhea, unspecified (5) Atrial fibrillation Onset Date: 12/13/17 Current Visit: No Status: Chronic Plan: Chronic Atrial Fib -currently on digoxin and Lasix. Plavix and aspirin on hold at this time Qualifiers: Atrial fibrillation type: chronic (6) CHF (congestive heart failure) Onset Date: 12/13/17 Current Visit: No Status: Chronic Plan: CHF with EF of 20% on last echo. -S/p Pacemaker and defib placement -Will restart on home medication -Monitor for fluid overload with current Fluids Qualifiers: Heart failure type: systolic Heart failure chronicity: chronic Qualified Code(s): I50.22 - Chronic systolic (congestive) heart failure (7) Dementia Onset Date: 08/27/17 Current Visit: No Status: Chronic Plan: Sever Dementia now are at baseline -Head CT with Severe Brain atropy and Chronic Ischemia Qualifiers: Dementia type: unspecified type Dementia behavioral disturbance: without behavioral disturbance Qualified Code(s): F03.90 - Unspecified dementia without behavioral disturbance (8) Diabetes mellitus Onset Date: 12/13/17 Current Visit: No Status: Chronic Plan: Will continue to monitor blood sugar q.1 hr blood sugar stabilizes since patient is still having poor PO intake. Not able to tolerate p.o. due to aspiration however family wanting to feed patient. Will try with thickened liquid today. If aspirating most keep patient NPO and continue to do q.1 hr blood sugar. Qualifiers: Diabetes mellitus type: type 2 Diabetes mellitus terminal gauger supervisor insulin use: without terminal gauger supervisor use Diabetes mellitus complication status: with circulatory complication Diabetes mellitus complication detail: with peripheral angiopathy without gangrene Qualified Code(s): E11.51 - Type 2 diabetes mellitus with diabetic peripheral angiopathy without gangrene (9) History of automatic internal cardiac defibrillator (AICD) Current Visit: No Status: Chronic (10) Hx of right BKA Current Visit: No Status: Chronic (11) Hypertension Onset Date: 08/27/17 Current Visit: No Status: Chronic Qualifiers: Hypertension type: essential hypertension (12) Malnutrition Onset Date: 12/13/17 Current Visit: No Status: Chronic Qualifiers: Malnutrition type: protein-calorie malnutrition Protein-calorie malnutrition severity: severe Qualified Code(s): E43 - Unspecified severe protein-calorie malnutrition (13) Pressure ulcer of coccygeal region, stage 3 Onset Date: 04/09/18 Current Visit: No Status: Chronic (14) CAD (coronary artery disease) Onset Date: 08/27/17 Current Visit: No Status: Chronic Qualifiers: Coronary Disease-Associated Artery/Lesion type: [place] artery [place] vs. transplanted heart: [place] heart Associated angina: without angina Qualified Code(s): I25.10 - Atherosclerotic heart disease of [place] coronary artery without angina pectoris - Plan Will continue with IV antibiotics here in the hospital transfer patient to the high level of care for vascular surgeon for HD catheter placement and central line placement Daughter iss a medical power residential real estate appraiser is at bedside. -Advised to keep patient NPO however states that she would not like to keep her mom hungry. Educated regarding aspiration related pneumonia. Stated that she would agree to thicken food however will not keep her mom hungry. Refuse to get speech therapy consultation here in the hospital. -Was offered hospice care given the advanced dementia along with brain atrophy along with end-stage renal disease. Daughter declined that at this time. Discharge Plan: Home Plan to discharge in: Greater than 2 days - Code Status/Comfort Care Code Status Assessed: Yes Critical Care: No
[2019-04-29] MEDS ORDERED: SODIUM BICARB 325 MG TAB PO SCH (14:00)
--- NOTE | 2019-04-29 18:10 | P.DS ---
Admission Date: 04/24/19 Discharge Date: 04/29/19 Primary Care Provider: Shala Sanchez Disposition: AMA-LEFT AGAINST MEDICAL ADVIC Discharge Condition: FAIR Reason for Admission: AMS - Problems (1) Acute kidney injury superimposed on CKD Onset Date: 08/27/17 Status: Acute (2) UTI (urinary tract infection) Onset Date: 04/11/18 Status: Acute Qualifiers: Urinary tract infection type: acute cystitis Hematuria presence: without hematuria Qualified Code(s): N30.00 - Acute cystitis without hematuria (3) Altered mental status Status: Resolved Qualifiers: Altered mental status type: unspecified Qualified Code(s): R41.82 - Altered mental status, unspecified (4) Diarrhea Onset Date: 02/13/18 Status: Acute Qualifiers: Diarrhea type: unspecified type Qualified Code(s): R19.7 - Diarrhea, unspecified (5) Atrial fibrillation Onset Date: 12/13/17 Status: Chronic Qualifiers: Atrial fibrillation type: chronic (6) CHF (congestive heart failure) Onset Date: 12/13/17 Status: Chronic Qualifiers: Heart failure type: systolic Heart failure chronicity: chronic Qualified Code(s): I50.22 - Chronic systolic (congestive) heart failure (7) Dementia Onset Date: 08/27/17 Status: Chronic Qualifiers: Dementia type: unspecified type Dementia behavioral disturbance: without behavioral disturbance Qualified Code(s): F03.90 - Unspecified dementia without behavioral disturbance (8) Diabetes mellitus Onset Date: 12/13/17 Status: Chronic Qualifiers: Diabetes mellitus type: type 2 Diabetes mellitus penitentiary insulin use: without penitentiary use Diabetes mellitus complication status: with circulatory complication Diabetes mellitus complication detail: with peripheral angiopathy without gangrene Qualified Code(s): E11.51 - Type 2 diabetes mellitus with diabetic peripheral angiopathy without gangrene (9) History of automatic internal cardiac defibrillator (AICD) Status: Chronic (10) Hx of right BKA Status: Chronic (11) Hypertension Onset Date: 08/27/17 Status: Chronic Qualifiers: Hypertension type: essential hypertension (12) Malnutrition Onset Date: 12/13/17 Status: Chronic Qualifiers: Malnutrition type: protein-calorie malnutrition Protein-calorie malnutrition severity: severe Qualified Code(s): E43 - Unspecified severe protein-calorie malnutrition (13) Pressure ulcer of coccygeal region, stage 3 Onset Date: 04/09/18 Status: Chronic (14) CAD (coronary artery disease) Onset Date: 08/27/17 Status: Chronic Qualifiers: Coronary Disease-Associated Artery/Lesion type: [place] artery [place] vs. transplanted heart: [place] heart Associated angina: without angina Qualified Code(s): I25.10 - Atherosclerotic heart disease of [place] coronary artery without angina pectoris Brief History of Present Illness: 84 y/o F with significant Pmhx who was brought to the ER by Daughter. Daughter states patient has been having poor appepitite for past couple of days since the daughter went on vacation. She was having AMS today and thus she checked her vitals. Her BP was low and BS was low as well. She gave the patient NA and Sugar which seemed to help bring up both at the time. She then called 911 for the patient to be brought to the hospital. Pt has also been having Diarrhea since past 3 days. has been in and out the hospital for past 3 to 4 months. Was recently admitted to [facility] for CARMEN and given Fluids and then DC home. She was on Hospice before, however hospice was revoked. Pt at baseline is demented with AAOx1 and does not get out of bed. She leaves at home with her daughter. Denies CP, SOB, N.V or any other symptoms. Pt was seen in the ER and was found to have CARMEN, Diarrhea, PNA and AMS was thus admitted for further care, Hospital Course: Pt was admitted to the hospital for ESRD. Pt was in the process of getting transferred to the [facility] for HD catheter and Central Line. While waiting for a bed, pt's daughter said they are leaving the Hospital AMA as they are tired of waiting. Pt and Daughter were both educated and explained about the process and they still want to leave AMA. Vital Signs/Physical Exam: Temp Pulse Resp BP Pulse Ox 99.1 F 60 20 147/67 H 100 04/29/19 12:13 04/29/19 12:13 04/29/19 12:13 04/29/19 12:13 04/29/19 12:13 General: Alert, In no apparent distress, Oriented x2, Cachectic, Demented Neck: Supple, JVD not distended Respiratory: Clear to auscultation bilaterally, Normal air movement Cardiovascular: Regular rate/rhythm, Normal S1 S2 Gastrointestinal: Normal bowel sounds, No tenderness Musculoskeletal: No tenderness Integumentary: No rashes Neurological: Normal speech, Normal tone, Normal affect Lymphatics: No axilla or inguinal lymphadenopathy Laboratory Data at Discharge: WBC 8.7 K/uL (4.3-10.9) 04/27/19 05:18 Hgb 8.0 g/dL (12.0-15.0) L 04/27/19 05:18 Hct 24.4 % (36.0-45.0) L 04/27/19 05:18 Plt Count 17 K/uL (152-406) L* 04/27/19 05:18 PT 12.2 SECONDS (9.5-12.5) 04/24/19 08:45 INR 1.04 04/24/19 08:45 Sodium 144 mmol/L (136-145) 04/29/19 05:28 Potassium 3.2 mmol/L (3.5-5.1) L 04/29/19 05:28 BUN 93 mg/dL (7-18) H 04/29/19 05:28 Creatinine 4.75 mg/dL (0.55-1.3) H 04/29/19 05:28 Glucose 114 mg/dL (74-106) H 04/29/19 05:28 Uric Acid 7.1 mg/dL (2.6-6.0) H D 04/24/19 08:45 Phosphorus 3.2 mg/dL (2.5-4.9) 04/29/19 05:28 Magnesium 1.9 mg/dL (1.8-2.4) 04/24/19 08:45 Total Bilirubin 0.3 mg/dL (0.2-1.0) 04/27/19 05:18 AST 9 U/L (15-37) L 04/27/19 05:18 ALT < 6 U/L (12-78) L 04/27/19 05:18 Alkaline Phosphatase 50 U/L (45-117) 04/27/19 05:18 Home Medications: Carvedilol 12.5 mg PO BID 11/26/18 Clopidogrel Bisulfate [Plavix*] 75 mg PO DAILY 11/26/18 Digoxin [Lanoxin*] 0.125 mg PO DAILY 11/26/18 Furosemide 40 mg PO BID 11/26/18 Hydralazine [Apresoline*] 25 mg PO TID 11/26/18 Nifedipine [Nifedipine ER] 90 mg PO DAILY 11/26/18 Pantoprazole [Protonix Tab*] 40 mg PO DAILY 11/26/18
[2019-04-29 18:36] VITALS: BP 144/59; TEMP 98.1
--- NOTE | 2019-04-30 00:01 | PN ---
Date of Progress Note: 04/29/2019 Subjective: Patient was admitted with worsening kidney function, hypertension. Patient's family refusing dialysis. Physical Examination: Vital Signs: Blood pressure 144/59, pulse of 60, afebrile. Patient had minimal urine output. Chest: Crackles on the base. Heart: S1, S2. Systolic murmur. Abdomen: Soft. Mild tenderness. Extremities: Right below-knee amputation. Laboratory Data: WBC 8.7, H and H 8/24.4, platelets 17. Sodium 144, potassium 3.2, bicarb 15, chloride 117, BUN 93, creatinine 4.7, calcium 7, phos 3.2, TSAT of 101, ferritin 878, albumin 1.9. Current Medications: The patient on include calcium, Epogen, meropenem, pantoprazole. Assessment And Plan: 1. Chronic kidney disease, progression to end-stage renal disease. I had long discussion with the patient's daughter by bedside regarding the prognosis of the patient given the worsening acidosis and altered mental status with uremic symptoms. I explained risks, benefits, and alternatives. Daughter agreed to initiate dialysis. We will consult surgeon for placement of PermCath. 2. Acidosis secondary to renal failure. Increase sodium bicarb, going to be corrected with dialysis. 3. Hypertension, controlled, optimal. 4. Anemia of chronic kidney disease. Start Epogen. 5. Urinary tract infection secondary to Enterobacter aeruginosa . Continue meropenem. 6. Deconditioning. 7. Uremic encephalopathy. We will follow up after dialysis. Continue supportive care. Patient with overall poor prognosis. SOURAV Voice ID: [id number] Report ID: [id number] [facility]
[2019-05-03 19:47] LABS: Vitamin D 1,25-Dihydroxy Total <8 pg/mL (18-72); Vitamin D,1,25-OH2, D2 <8 pg/mL
== END 2019-04-29 17:04 | disposition left against medical advice (07) | DRG 682 ==
LOC: ER 07:59 → ERHOLD 15:15 → 2ND 16:08
PROVIDERS: ADMIT Family Medicine; ATTEND Family Medicine
DX: N17.9 Acute kidney failure, unspecified (principal); L89.153 Pressure ulcer of sacral region, stage 3; E43 Unspecified severe protein-calorie malnutrition; J18.9 Pneumonia, unspecified organism; I13.2 Hypertensive heart and chronic kidney disease with heart failure and with stage 5 chronic kidney disease, or end stage renal disease; I50.22 Chronic systolic (congestive) heart failure; E87.2 Acidosis; N39.0 Urinary tract infection, site not specified; G93.49 Other encephalopathy; Z68.1 Body mass index [BMI] 19.9 or less, adult; R64 Cachexia; A04.72 Enterocolitis due to Clostridium difficile, not specified as recurrent; N18.6 End stage renal disease; E11.22 Type 2 diabetes mellitus with diabetic chronic kidney disease; B96.89 Other specified bacterial agents as the cause of diseases classified elsewhere; F03.90 Unspecified dementia, unspecified severity, without behavioral disturbance, psychotic disturbance, mood disturbance, and anxiety; Z89.511 Acquired absence of right leg below knee; Z95.810 Presence of automatic (implantable) cardiac defibrillator; I25.10 Atherosclerotic heart disease of native coronary artery without angina pectoris; E87.6 Hypokalemia; E83.51 Hypocalcemia
CPT/HCPCS: 36415; 51702; 70450; 71045; 76770; 80048; 80053; 80069; 80076; 81003; 81015; 82274; 82570; 82607; 82652; 82728; 82746; 82962; 83540; 83605; 83735; 83880; 83970; 84100; 84145; 84156; 84443; 84466; 84484; 84550; 85025; 85610; 86850; 86900; 86901; 87040; 87045; 87046; 87070; 87077; 87086; 87088; 87177; 87186; 87205; 87209; 87493; 93005; 96365; 96366; 96368; 99251; 99285; C9113; J0692; J0885; J2543; J3590; J7030

== ENCOUNTER 2019-05-12 07:34 | Inpatient (IN) | payer OTHER ==
[2019-05-12 08:08] LABS: Protime INR 1.25
[2019-05-12 08:10] LABS: Basophils % 0.9 % (0-1.3); Hematocrit 32.6 % (36.0-45.0); Lymphocytes % 16.6 % (15.3-44.8); MPV 8.4 fL (7.6-11.3); RBC Red Blood Cell Count 3.86 M/uL (3.86-4.86)
--- NOTE | 2019-05-12 08:20 | RAD REPORT ---
EXAM DESCRIPTION: RAD - Chest Single View - 05/12/2019 8:09 am CLINICAL HISTORY: COUGH Chest pain. COMPARISON: Chest Single View dated 04/24/2019; Chest Single View dated 11/26/2018; Chest Single View dated 11/25/2018; Chest Single View dated 09/20/2018 FINDINGS: Portable technique limits examination quality. Moderate airspace opacity is present in the right mid and lower lung with right pleural effusion, lik daniel representing pneumonia. The heart is moderately enlarged with multilead pacer/defibrillator devic e. Sternotomy wires present.
[2019-05-12 08:41] LABS: ALT/SGPT < 6 U/L (12-78); AST/SGOT 16 U/L (15-37); Albumin 1.6 g/dL (3.4-5.0); Alkaline Phosphatase 67 U/L (45-117); BUN Blood Urea Nitrogen 60 mg/dL (7-18); Bicarbonate 25 mmol/L (21-32); Bilirubin Direct 0.2 mg/dL (0-0.2); Bilirubin Total 0.5 mg/dL (0.2-1.0); Glucose Level 131 mg/dL (74-106); Magnesium 1.5 mg/dL (1.8-2.4); NT PRO-BNP > 35000 pg/mL (<450); Protein, Total 5.2 g/dL (6.4-8.2); Sodium Level 139 mmol/L (136-145); Troponin (Emerg Dept Use Only) 0.21 ng/mL (0.0-0.045)
[2019-05-12 09:24] LABS: Urine Blood 2+ (NEG); Urine Glucose NEGATIVE (NEG); Urine Protein 2+ (NEG); Urine pH 5.5 (5.0-7.0)
[2019-05-12] MEDS ORDERED: CEFTRIAXONE/SWI 1gm 1 GM/10 ML SYR ONE (09:35)
--- NOTE | 2019-05-12 09:55 | ER ---
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 BP 160/85 HR-70 paced Temp-98.7. Transition of care: patient was not received from another setting of care. Onset of symptoms was May 12, 2019. Risk Assessment: Do you want to hurt yourself or someone else? Patient reports no desire to harm self or others. Initial Sepsis Screen: Does the patient meet any 2 criteria? No. Patient's initial sepsis screen is negative. Does the patient have a suspected source of infection? No. Patient's initial sepsis screen is negative. Care prior to arrival: IV initiated. 20 GA, in the right forearm. 07:31 Method Of Arrival: EMS: [facility] 07:31 Acuity: LAURO 2 sv Triage Assessment: 07:35 General: Appears in no apparent distress. comfortable, Behavior is calm, cooperative. sv Pain: Denies pain. Neuro: Level of Consciousness is awake, alert, obeys commands, Oriented to person, place, situation. Respiratory: Airway is patent Respiratory effort is even, unlabored, Respiratory pattern is regular, symmetrical. Derm: Skin is normal, multiple skin breakdown noted to buttocks and upper thighs. Historical: - Allergies: 07:46 No Known Allergies; sv - PMHx: 07:46 Anemia; Atrial Fib; CAD; CHF; Diabetes - NIDDM; DYSPHAGIA; High Cholesterol; sv Hypertension; osteomyelitis; Renal Disease; 12:48 Pacemaker; sv - Immunization history:: Adult Immunizations up to date. - Social history:: Smoking status: Patient/guardian denies using tobacco. - Family history:: not pertinent. - Ebola Screening: : No symptoms or risks identified at this time. Screenin:47 Abuse screen: Denies threats or abuse. Denies injuries from another. Nutritional sv screening: No deficits noted. Tuberculosis screening: No symptoms or risk factors identified. Fall Risk No fall in past 12 months (0 pts). No secondary diagnosis (0 pts). IV access (20 points). Ambulatory Aid- None/Bed Rest/Nurse Assist (0 pts). Gait- Normal/Bed Rest/Wheelchair (0 pts) Mental Status- Oriented to own ability (0 pts). Total Turner Fall Scale indicates No Risk (0-24 pts). Assessment: 07:46 Reassessment: Daughter states her BS was 16 this morning and she put sugar in her gum sv line until EMS could get there. 08:31 Reassessment: Patient appears in no apparent distress at this time. No changes from sv previously documented assessment. Patient and/or family updated on plan of care and expected duration. Pain level reassessed. Patient is alert, oriented x 3, equal unlabored respirations, skin warm/dry/pink. 09:40 Reassessment: Patient appears in no apparent distress at this time. No changes from sv previously documented assessment. Patient and/or family updated on plan of care and expected duration. Pain level reassessed. Patient is alert, oriented x 3, equal unlabored respirations, skin warm/dry/pink. 10:30 Reassessment: Patient appears in no apparent distress at this time. No changes from sv previously documented assessment. Patient and/or family updated on plan of care and expected duration. Pain level reassessed. Patient is alert, oriented x 3, equal unlabored respirations, skin warm/dry/pink. Daughter remains at the bedside. 11:30 Reassessment: Patient appears in no apparent distress at this time. No changes from sv previously documented assessment. Patient and/or family updated on plan of care and expected duration. Pain level reassessed. Patient is alert, oriented x 3, equal unlabored respirations, skin warm/dry/pink. Derm: Wound noted left first toe Wound is gangrene noted. 12:51 Reassessment: Patient appears in no apparent distress at this time. No changes from sv previously documented assessment. Patient and/or family updated on plan of care and expected duration. Pain level reassessed. Patient is alert, oriented x 3, equal unlabored respirations, skin warm/dry/pink. Vital Signs: 07:43 BP 140 / 78; Pulse 73; Resp 21; Temp 97.8; Pulse Ox 98% on R/A; Weight 47.63 kg; ss 08:28 BP 135 / 70; Pulse 70; Resp 14; Pulse Ox 98% ; sv 09:08 BP 142 / 73; Pulse 70; Resp 14; Pulse Ox 99% ; sv 09:41 BP 132 / 67; Pulse 70; Resp 12; Pulse Ox 99% ; sv 10:31 BP 151 / 71; Pulse 70; Resp 12; Pulse Ox 96% on Nebulizer Mask; sv 11:02 BP 151 / 68; Pulse 70; Resp 17; Pulse Ox 96% on R/A; sv 12:42 BP 115 / 57; Pulse 70; Resp 11; Pulse Ox 100% ; sv ED Course: 07:31 Maintain EMS IV. Dressing intact. Site clean \T\ dry. Gauge \T\ site: 20G R FA. sv 07:35 Patient has correct armband on for positive identification. Placed in gown. Bed in low sv position. Call light in reach. Side rails up X2. front desk monitor on. Pulse ox on. NIBP on. Door closed. Head of bed elevated. 07:39 Patient arrived in ED. sv 07:41 Skinny Luna MD is Attending Physician. katerina 07:45 Triage completed. sv 07:46 Arm band placed on. sv 08:03 Shala Johnston, RN is Primary Nurse. ss 08:06 EKG done, by senior technical support analyst. reviewed by Skinny Luna MD. tc 08:08 XRAY Chest (1 view) In Process Unspecified. EDMS 08:15 Straight cath inserted, using sterile technique, 16 Fr. Specimen obtained. Returned sv clear yellow urine. Patient tolerated well. 09:00 Awaiting lab results, Awaiting re-evaluation by ER provider. sv 09:52 Andrew Malcolm is Hospitalizing Provider. katerina 10:10 Zarco cath inserted, using sterile technique, 16 Fr., by de, balloon inflated, to sv gravity drainage, returned cloudy urine. Patient tolerated well. 10:31 Awaiting bed assignment. sv 11:12 IV is patent, is intact, with fluids infusing freely. sv 12:15 Awaiting bed assignment. sv 12:48 No provider procedures requiring assistance completed. Patient admitted, IV remains in sv place. intact. Administered Medications: 10:24 Drug: NS 0.9% 1000 ml Route: IV; Rate: 75 ml/hr; Site: right forearm; sv 12:49 Follow up: Response: No adverse reaction; IV Status: Infusion continued upon admission sv 10:24 Drug: Lasix 20 mg Route: IVP; Site: right forearm; sv 10:33 Follow up: Response: No adverse reaction sv 10:26 Drug: Pepcid 20 mg Route: IVP; Site: right forearm; sv 10:33 Follow up: Response: No adverse reaction sv 10:28 Drug: Rocephin 1 grams Route: IV; Rate: calculated rate; Site: right forearm; sv 10:30 Follow up: Response: No adverse reaction; IV Status: Completed infusion; IV Intake: 10mlsv 10:29 Drug: AtroVENT Aerosol 0.5 mg Route: Inhalation; sv 10:30 Drug: Zosyn 3.375 grams Route: IVPB; Infused Over: 60 mins; Site: right forearm; sv 11:30 Follow up: Response: No adverse reaction; IV Status: Completed infusion; IV Intake: sv 100ml 10:30 Drug: Xopenex 2.5 mg Route: Inhalation; sv 12:14 Drug: Magnesium Sulfate 1 grams Route: IVPB; Infused Over: 1 hrs; Site: right forearm; sv 12:48 Follow up: Response: No adverse reaction; IV Status: Infusion continued upon admission sv Intake: 10:30 IV: 10ml; Total: 10ml. sv 11:30 IV: 100ml; Total: 110ml. sv Outcome: 09:54 Decision to Hospitalize by Provider. katerina 12:48 Admitted to Tele accompanied by tech, via stretcher, room 419, with chart, Report sv called to Joan FRANCO 12:48 Condition: stable 12:48 Instructed on the need for admit. 12:59 Patient left the ED. sv Signatures: Dispatcher [employer] Shala Velazquez RN RN sv Anderson, Corey, MD MD cha Smirch, Shelby, RN RN Jaclyn English, fruit or nut farmworker EKG Ttc
--- NOTE | 2019-05-12 09:55 | EDPHYS ---
Physician Documentation [facility] Name: Karissa Frias Age: 84 yrs Sex: Female : 1935 Arrival Date: 05/12/2019 Time: 07:39 Bed 6 Private MD: ED Physician Skinny Luna HPI: 05/12 07:50 This 84 yrs old Black Female presents to ER via EMS with complaints of Unresponsive, katerina Low Blood Sugar. 07:50 The patient or guardian reports hypoglycemia. Onset: The symptoms/episode katerina began/occurred just prior to arrival, this morning. Associated signs and symptoms: Pertinent positives: None. Current symptoms: In the emergency department the patient's symptoms have improved, moderately, is more alert. The patient has experienced similar episodes in the past, several times. Historical: - Allergies: 07:46 No Known Allergies; sv - PMHx: 07:46 Anemia; Atrial Fib; CAD; CHF; Diabetes - NIDDM; DYSPHAGIA; High Cholesterol; sv Hypertension; osteomyelitis; Renal Disease; 12:48 Pacemaker; sv - Immunization history:: Adult Immunizations up to date. - Social history:: Smoking status: Patient/guardian denies using tobacco. - Family history:: not pertinent. - Ebola Screening: : No symptoms or risks identified at this time. ROS: 07:50 Constitutional: Negative for fever, chills, and weight loss, Eyes: Negative for injury, katerina pain, redness, and discharge, ENT: Negative for injury, pain, and discharge, Neck: Negative for injury, pain, and swelling, Cardiovascular: Negative for chest pain, palpitations, and edema, Respiratory: Negative for shortness of breath, cough, wheezing, and pleuritic chest pain, Abdomen/GI: Negative for abdominal pain, nausea, vomiting, diarrhea, and constipation, Back: Negative for injury and pain, : Negative for injury, bleeding, discharge, and swelling, MS/Extremity: Negative for injury and deformity, Skin: Negative for injury, rash, and discoloration, Psych: Negative for depression, anxiety, suicide ideation, homicidal ideation, and hallucinations, Allergy/Immunology: Negative for hives, rash, and allergies, Endocrine: Negative for neck swelling, polydipsia, polyuria, polyphagia, and marked weight changes, Hematologic/Lymphatic: Negative for swollen nodes, abnormal bleeding, and unusual bruising. 07:50 Neuro: Positive for altered mental status, weakness. Exam: 07:50 Constitutional: This is a well developed, well nourished patient who is awake, alert, katerina and in no acute distress. Head/Face: Normocephalic, atraumatic. Eyes: Pupils equal round and reactive to light, extra-ocular motions intact. Lids and lashes normal. Conjunctiva and sclera are non-icteric and not injected. Cornea within normal limits. Periorbital areas with no swelling, redness, or edema. ENT: Nares patent. No nasal discharge, no septal abnormalities noted. Tympanic membranes are normal and external auditory canals are clear. Oropharynx with no redness, swelling, or masses, exudates, or evidence of obstruction, uvula midline. Mucous membranes moist. Neck: Trachea midline, no thyromegaly or masses palpated, and no cervical lymphadenopathy. Supple, full range of motion without nuchal rigidity, or vertebral point tenderness. No Meningismus. Chest/axilla: Normal chest wall appearance and motion. Nontender with no deformity. No lesions are appreciated. Cardiovascular: Regular rate and rhythm with a normal S1 and S2. No gallops, murmurs, or rubs. Normal PMI, no JVD. No pulse deficits. Respiratory: Lungs have equal breath sounds bilaterally, clear to auscultation and percussion. No rales, rhonchi or wheezes noted. No increased work of breathing, no retractions or nasal flaring. Abdomen/GI: Soft, non-tender, with normal bowel sounds. No distension or tympany. No guarding or rebound. No evidence of tenderness throughout. Back: No spinal tenderness. No costovertebral tenderness. Full range of motion. Female : Normal external genitalia. Skin: Warm, dry with normal turgor. Normal color with no rashes, no lesions, and no evidence of cellulitis. MS/ Extremity: Pulses equal, no cyanosis. Neurovascular intact. Full, normal range of motion. Neuro: Awake and alert, GCS 15, oriented to person, place, time, and situation. Cranial nerves II-XII grossly intact. Motor strength 5/5 in all extremities. Sensory grossly intact. Cerebellar exam normal. Normal gait. Psych: Awake, alert, with orientation to person, place and time. Behavior, mood, and affect are within normal limits. Vital Signs: 07:43 BP 140 / 78; Pulse 73; Resp 21; Temp 97.8; Pulse Ox 98% on R/A; Weight 47.63 kg; ss 08:28 BP 135 / 70; Pulse 70; Resp 14; Pulse Ox 98% ; sv 09:08 BP 142 / 73; Pulse 70; Resp 14; Pulse Ox 99% ; sv 09:41 BP 132 / 67; Pulse 70; Resp 12; Pulse Ox 99% ; sv 10:31 BP 151 / 71; Pulse 70; Resp 12; Pulse Ox 96% on Nebulizer Mask; sv 11:02 BP 151 / 68; Pulse 70; Resp 17; Pulse Ox 96% on R/A; sv 12:42 BP 115 / 57; Pulse 70; Resp 11; Pulse Ox 100% ; sv MDM: 07:41 Patient medically screened. [facility] 07:50 Data reviewed: vital signs, nurses notes, lab test result(s), EKG, radiologic studies, katerina plain films. 05/12 07:42 Order name: FSBG Kely; Complete Time: 09:44 sv 05/12 07:48 Order name: Basic Metabolic Panel; Complete Time: 09:44 [facility] 05/12 07:48 Order name: CBC with Diff; Complete Time: 09:44 katerina 05/12 07:48 Order name: LFT's; Complete Time: 09:44 katerina 05/12 07:48 Order name: Magnesium; Complete Time: 09:44 katerina 05/12 07:48 Order name: NT PRO-BNP; Complete Time: 09:44 katerina 05/12 07:48 Order name: PT-INR; Complete Time: 09:44 katerina 05/12 07:48 Order name: Troponin (emerg Dept Use Only); Complete Time: 09:44 katerina 05/12 07:48 Order name: Urine Culture [facility] 05/12 07:55 Order name: Digoxin; Complete Time: 09:44 katerina 05/12 08:25 Order name: Urine Dipstick--Ancillary (enter results); Complete Time: 09:44 05/12 09:49 Order name: Procalcitonin; Complete Time: 11:24 katerina 05/12 09:49 Order name: Lactate; Complete Time: 10:37 katerina 05/12 11:33 Order name: Glucometer Result Kely [email or web address] 05/12 07:48 Order name: XRAY Chest (1 view); Complete Time: 09:44 [facility] 05/12 07:48 Order name: EKG; Complete Time: 07:49 [facility] 05/12 07:48 Order name: Cardiac monitoring; Complete Time: 07:49 [facility] 05/12 07:48 Order name: EKG - Nurse/Tech; Complete Time: 08:03 [facility] 05/12 07:48 Order name: IV Saline Lock; Complete Time: 07:49 [facility] 05/12 07:48 Order name: Diet Regular; Complete Time: 07:49 [facility] 05/12 11:35 Order name: Glucometer Result Nova jb1 05/12 11:39 Order name: CONS Physician Consult EDMS 05/12 07:48 Order name: Labs collected and sent; Complete Time: 07:58 [facility] 05/12 07:48 Order name: O2 Per Protocol; Complete Time: 07:49 [facility] 05/12 07:48 Order name: O2 Sat Monitoring; Complete Time: 07:49 [facility] 05/12 07:48 Order name: Urine Dipstick-Ancillary (obtain specimen); Complete Time: 08:25 [facility] 05/12 09:56 Order name: Zarco; Complete Time: 10:29 [facility] 05/12 11:25 Order name: PO challenge: oj please; Complete Time: 11:25 [facility] Administered Medications: 10:24 Drug: NS 0.9% 1000 ml Route: IV; Rate: 75 ml/hr; Site: right forearm; sv 12:49 Follow up: Response: No adverse reaction; IV Status: Infusion continued upon admission sv 10:24 Drug: Lasix 20 mg Route: IVP; Site: right forearm; sv 10:33 Follow up: Response: No adverse reaction sv 10:26 Drug: Pepcid 20 mg Route: IVP; Site: right forearm; sv 10:33 Follow up: Response: No adverse reaction sv 10:28 Drug: Rocephin 1 grams Route: IV; Rate: calculated rate; Site: right forearm; sv 10:30 Follow up: Response: No adverse reaction; IV Status: Completed infusion; IV Intake: 10mlsv 10:29 Drug: AtroVENT Aerosol 0.5 mg Route: Inhalation; sv 10:30 Drug: Zosyn 3.375 grams Route: IVPB; Infused Over: 60 mins; Site: right forearm; sv 11:30 Follow up: Response: No adverse reaction; IV Status: Completed infusion; IV Intake: sv 100ml 10:30 Drug: Xopenex 2.5 mg Route: Inhalation; sv 12:14 Drug: Magnesium Sulfate 1 grams Route: IVPB; Infused Over: 1 hrs; Site: right forearm; sv 12:48 Follow up: Response: No adverse reaction; IV Status: Infusion continued upon admission sv Disposition: 05/12/19 09:54 Hospitalization ordered by Andrew Malcolm for Inpatient Admission. Preliminary diagnosis are Pneumonia due to other specified bacteria, Hypoglycemia, unspecified, Unspecified kidney failure, Hypokalemia, Urinary tract infection, site not specified, Cardiomegaly, Unspecified combined systolic (congestive) and diastolic (congestive) heart failure, Hypomagnesemia, Gangrene, not elsewhere classified - left foot, great toe. - Bed requested for Telemetry/MedSurg (Inpatient). - Status is Inpatient Admission. sv - Condition is Fair. - Problem is new. - Symptoms have improved. UTI on Admission? Yes Signatures: Dispatcher [employer] EDShala Edward RN RN Skinny Felix MD MD cha Smirch, Shelby, RN RN ss Corrections: (The following items were deleted from the chart) 11: 09:54 Hospitalization Ordered by Andrew Malcolm for Inpatient Admission. Preliminary [facility] diagnosis is Pneumonia due to other specified bacteria; Hypoglycemia, unspecified; Unspecified kidney failure; Hypokalemia; Urinary tract infection, site not specified; Cardiomegaly; Unspecified combined systolic (congestive) and diastolic (congestive) heart failure. Bed requested for Telemetry/MedSurg (Inpatient). Status is Inpatient Admission. Condition is Fair. Problem is new. Symptoms have improved. UTI on Admission? Yes. [facility] 12:19 11:27 05/12/2019 09:54 Hospitalization Ordered by Andrew Malcolm for Inpatient katerina Admission. Preliminary diagnosis is Pneumonia due to other specified bacteria; Hypoglycemia, unspecified; Unspecified kidney failure; Hypokalemia; Urinary tract infection, site not specified; Cardiomegaly; Unspecified combined systolic (congestive) and diastolic (congestive) heart failure; Hypomagnesemia. Bed requested for Telemetry/MedSurg (Inpatient). Status is Inpatient Admission. Condition is Fair. Problem is new. Symptoms have improved. UTI on Admission? Yes. [facility] 12:37 12:19 05/12/2019 09:54 Hospitalization Ordered by Andrew Malcolm for Inpatient ss Admission. Preliminary diagnosis is Pneumonia due to other specified bacteria; Hypoglycemia, unspecified; Unspecified kidney failure; Hypokalemia; Urinary tract infection, site not specified; Cardiomegaly; Unspecified combined systolic (congestive) and diastolic (congestive) heart failure; Hypomagnesemia; Gangrene, not elsewhere classified - left foot, great toe. Bed requested for Telemetry/MedSurg (Inpatient). Status is Inpatient Admission. Condition is Fair. Problem is new. Symptoms have improved. UTI on Admission? Yes. katerina 12:59 12:37 05/12/2019 09:54 Hospitalization Ordered by Andrew Malcolm for Inpatient sv Admission. Preliminary diagnosis is Pneumonia due to other specified bacteria; Hypoglycemia, unspecified; Unspecified kidney failure; Hypokalemia; Urinary tract infection, site not specified; Cardiomegaly; Unspecified combined systolic (congestive) and diastolic (congestive) heart failure; Hypomagnesemia; Gangrene, not elsewhere classified - left foot, great toe. Bed requested for Telemetry/MedSurg (Inpatient). Status is Inpatient Admission. Condition is Fair. Problem is new. Symptoms have improved. UTI on Admission? Yes. ss
[2019-05-12] MEDS ORDERED: IPRATROPIUM BROM 0.5MG/2.5ML ONE (09:57)
[2019-05-12] MEDS ORDERED: PIPER/TAZO/NS 3.375gm 3.375 GM/100 ML BAG ONE (09:58)
[2019-05-12] MEDS ORDERED: FAMOTIDINE 20 MG/2 ML VIAL IV ONE (09:58)
[2019-05-12] MEDS ORDERED: LEVALBUTEROL 1.25 MG/3 ML NEB ONE (09:58)
[2019-05-12] MEDS ORDERED: FUROSEMIDE 20 MG/ 2ML VIAL ONE (10:01)
[2019-05-12] MEDS ORDERED: NA CHLORIDE 0.9% 1,000 ML ONE (10:01)
[2019-05-12] MEDS ORDERED: MAGNESIUM SULFATE 1 gm IVPB 1 GM/100 ML BAG IV ONE (11:34)
--- NOTE | 2019-05-12 12:28 | EKG ---
Test Date: 2019-05-12 Test Time: 07:59:03 Wire Twisting Machine Operator: ODALYS MEASUREMENT RESULTS: Intervals: Rate: 125 TN: QRSD: 146 QT: 580 QTc: 837 [place]: P: TN: QRS: -83 T: 88 INTERPRETIVE STATEMENTS: Ventricular-paced rhythm with frequent atrial-paced complexes and with frequent and consecutive premature ventricular complexes Biventricular pacemaker detected Abnormal ECG Compared to ECG 04/24/2019 08:22:49 Ventricular premature complex(es) now present AV dual-paced complex(es) or rhythm no longer present Electronically Signed On 05-12-19 12:26:46 CDT by Ramon James
--- NOTE | 2019-05-12 13:09 | P.HP ---
Certification for Inpatient With expected LOS: >2 Midnights Practitioner: I am a practitioner with admitting privileges, knowledge of patient current condition, hospital course, and medical plan of care. Services: Services provided to patient in accordance with Admission requirements found in Title 42 Section 412.3 of the Code of Federal Regulations Patient History Date of Service: 05/15/19 Reason for admission: Altered mental state History of Present Illness: 84-year-old woman with a history of chronic atrial fibrillation , diabetes mellitus type 2, diabetic foot ulcer, status post right BKA, history of chronic kidney disease was brought to the emergency department because patient became unresponsive. She was found with a blood sugar of 40. She was given dextrose and brought to the emergency. Her blood sugar on arrival was 131. Patient is a poor historian. She is awake but not able to provide any history. BMP report hypokalemia and hypocalcemia. CBC shows anemia. Patient was afebrile in the ED. Noted necrotic wound at the tip of the left toe and the lateral edge of the left foot. Chest x-ray demonstrated multiple opacities in the right lung. Her UA suggest the presence of UTI. Patient is admitted for further management. Allergies No Known Allergies Allergy (Verified 11/25/18 23:33) Home medications list reviewed: Yes Home Medications: Clopidogrel Bisulfate [Plavix*] 75 mg PO DAILY 11/26/18 Furosemide 40 mg PO BID 11/26/18 Hydralazine [Apresoline*] 25 mg PO TID 11/26/18 Calcitriol 1 cap PO DAILY 05/12/19 Calcium Carbonate/Vitamin D3 [Calcium 500-Vit D3 200 Tablet] 1 tab PO TID Carvedilol 1 tab PO BID 05/12/19 Cyanocobalamin [Vitamin B-12*] 1 tab PO DAILY 05/12/19 Digoxin [Lanoxin] 1 tab PO SEECOM 05/12/19 Nifedipine Xl [Procardia XL*] 1 tab PO DAILY 05/12/19 Cefpodoxime Proxetil 100 mg PO BID 5 Days #10 tablet 05/13/19 Magnesium Oxide [Mag 0X*] 400 mg PO DAILY 3 Days #3 tab 05/13/19 - Past Medical/Surgical History Diabetic: Yes -: Atrial fibrillation, NO chronic anticoagulation -: CAD -: HTN -: DM Type 2 -: Anemia of Chronic disease -: Chronic Renal Disease -: PVD -: DM Foot ulcer -: Diabetic neuropathy -: Malnutrition -: Hx of Pacemaker/Defibrillator -: PEG tube -: AICD placement -: PEG tube placement Psychosocial/ Personal History: correction placement - Family History Father -: Diabetes Mother -: Diabetes - Social History Smoking Status: Never smoker Alcohol use: No CD- Drugs: No Caffeine use: No Review of Systems Unremarkable (Due to advanced dementia) Physical Examination - Physical Exam General: In no apparent distress, Oriented x1, Cooperative, Cachectic HEENT: Atraumatic, Normocephalic, PERRLA, Mucous membr. moist/pink Neck: Supple, JVD not distended, No Thyromegaly Respiratory: Diminished (Bilaterally), Crackles/rales (Right lung base) Cardiovascular: No edema (Left dorsalis pedis pulse is not palpated.), Regular rate/rhythm Gastrointestinal: Normal bowel sounds, Soft and benign, No ascites, No tenderness Musculoskeletal: Other (Gangrenous wound on the tip of the left big toe and lateral edge of the left foot.) Integumentary: Other (Multiple gangrenous wound on the left foot.) Neurological: Other (Moves all extremities spontaneously), Dementia Lymphatics: No axilla or inguinal lymphadenopathy - Studies Laboratory Data (last 24 hrs) 05/12/19 07:50: PT 14.6 H, INR 1.25 05/12/19 07:50: WBC 6.3, Hgb 10.6 L, Hct 32.6 L, Plt Count 112 L 05/12/19 07:50: Sodium 139, Potassium 3.0 L, BUN 60 H D, Creatinine 3.50 H D, Glucose 131 H, Magnesium 1.5 L, Total Bilirubin 0.5, AST 16, ALT < 6 L, Alkaline Phosphatase 67 Imagings Data: Chest x-ray: Moderate airspace opacity is present in the right mid and lower lung with right pleural effusion, likely representing pneumonia. The heart is moderately enlarged with multilead pacer/defibrillator device. Sternotomy wires present. Assessment and Plan - Problems (Diagnosis) (1) Hypoglycemia Onset Date: 04/09/18 Status: Resolved (2) Hypomagnesemia Onset Date: 12/13/17 Status: Acute (3) Hypokalemia Onset Date: 12/13/17 Status: Acute (4) Chronic kidney disease, stage 5 Status: Acute (5) Pleural effusion Onset Date: 12/13/17 Status: Acute (6) UTI (urinary tract infection) Onset Date: 04/11/18 Status: Acute Qualifiers: Urinary tract infection type: acute cystitis Hematuria presence: without hematuria Qualified Code(s): N30.00 - Acute cystitis without hematuria (7) Atrial fibrillation Onset Date: 12/13/17 Status: Chronic Qualifiers: Atrial fibrillation type: chronic (8) DM foot ulcer Onset Date: 12/13/17 Status: Chronic Qualifiers: Diabetic foot ulcer location: other Diabetes mellitus type: type 2 Laterality: left (9) Dementia Onset Date: 08/27/17 Status: Chronic Qualifiers: Dementia type: unspecified type Dementia behavioral disturbance: without behavioral disturbance Qualified Code(s): F03.90 - Unspecified dementia without behavioral disturbance (10) Diabetes mellitus Onset Date: 12/13/17 Status: Chronic Qualifiers: Diabetes mellitus type: type 2 Diabetes mellitus skilled nursing insulin use: without skilled nursing use Diabetes mellitus complication status: with circulatory complication (11) Malnutrition Onset Date: 12/13/17 Status: Chronic Qualifiers: Malnutrition type: protein-calorie malnutrition Protein-calorie malnutrition severity: severe Qualified Code(s): E43 - Unspecified severe protein-calorie malnutrition - Plan Admits to [facility] IV antibiotics-vancomycin and zosyn Follow urine culture and blood cultures. IV dextrose infusion Glucose management with insulin sliding scale. Wound care consult Nutritional Consult General surgery consult for necrotic foot wounds. Cannot do MRI of the foot to assess for osteomyelitis due to presence of pacemaker. Replete potassium and magnesium IV. - Advance Directives Does patient have a Living Will: Yes Does patient have a Durable POA for Healthcare: Yes
[2019-05-12 13:20] VITALS: BMI 16.4
[2019-05-12] MEDS ORDERED: D50W 25 GM/50 ML SYRINGE IV PRN (13:26)
[2019-05-12] MEDS ORDERED: GLUCAGON 1 MG/VIAL IM PRN (13:26)
[2019-05-12] MEDS ORDERED: ONDANSETRON 4 MG/2 ML VIAL IV PRN (13:26)
[2019-05-12] MEDS ORDERED: ACETAMINOPHEN 325 MG TABLET PO PRN (13:26)
[2019-05-12] MEDS ORDERED: IPRATROPIUM BROM 0.5MG/2.5ML NEB PRN (13:26)
[2019-05-12] MEDS ORDERED: ALBUTEROL 2.5 MG/3 ML NEB SOL NEB PRN (13:26)
[2019-05-12] MEDS ORDERED: MORPHINE 2 MG/ML SYR IV PRN (13:26)
[2019-05-12] MEDS: HYDRALAZINE HCL 10 MG TABLET PO SCH ×3 (14:00→22:30)
[2019-05-12] MEDS: CALCIUM CARB 500MG/VIT D 200 IU TAB PO SCH ×3 (14:30→22:30)
[2019-05-12] MEDS: D5 0.45 NS 1,000 ML IV SCH (14:53)
[2019-05-12] MEDS ORDERED: FAMOTIDINE 20 MG/2 ML VIAL IV SCH ×2 (15:00→21:00)
[2019-05-12] MEDS: INSULIN -REGULAR HUMAN 50 UNIT/0.5 ML ML SQ SCH ×2 (16:30→21:00)
[2019-05-12] MEDS: PIPER/TAZO/NS 2.25gm 2.25 GM/50 ML BAG IVPB SCH (17:15)
[2019-05-12] MEDS: FUROSEMIDE 20 MG/ 2ML VIAL IV SCH (17:17)
[2019-05-12] MEDS: CARVEDILOL 12.5 MG TAB PO SCH (17:17)
--- NOTE | 2019-05-12 19:09 | CON ---
Date of Consultation: 05/12/2019 Reason For Consultation: Elevated BUN and creatinine. History Of Present Illness: This is a pleasant 84-year-old female. All the information has been obt ained from the daughter by bedside as patient's altered mental status. Has a history of diabetes com plicated with neuropathy, advanced dementia, hypertension, AFib, chronic kidney disease stage 5, base line creatinine 4-5, peripheral vascular disease status post right below-knee amputation, UTI, patien t recently admitted to the hospital with uremic encephalopathy. Family was not decided, finally refu sed dialysis. Patient was a transferred to [facility] in the presumption of starting dialysis. We di d not start as patient changed their mind, family. Patient was treated for UTI Pseudomonas with srinivas penem 7 days as by ID. Patient apparently at home had passed out, found to have hypoglycemia with ca rdiac arrhythmia. For that, brought to the hospital. In the hospital, found to have hypoglycemia, c ardiac arrhythmia, elevated BUN and creatinine. For that reason, we have been consulted. Allergies: NO KNOWN DRUGS ALLERGY. Past Medical History: 1.Atrial fibrillation. 2.Coronary artery disease. 3.Peripheral vascular disease, status post below-knee amputation. 4.Diabetes, complicated with neuropathy and nephropathy. 5.Chronic kidney disease, stage 5. 6.Diabetic foot. 7.UTI. 8.Cardiac arrhythmia, ICD placement. Family History: Positive for hypertension, end-stage renal disease. Social History: Lives with family. Denies smoking. Denies drinking. Denies drugs abuse. Review of Systems: Not obtainable. Physical Examination: General: When I saw the patient, patient lying in bed. Vital Signs: Blood pressure 149/79, pulse of 70. Afebrile. Chest: Clear to auscultation. Heart: S1, S2. Systolic murmur. Abdomen: Soft, nontender. Extremities: Right below-knee amputation. Left dressing on the foot with gangrenous big toe and esc romy on the lateral side. Neurologic: Sleepy, moving 4 extremities without focality. Laboratory Data: WBC 6.3, H and H of 10.6/32.6, platelets 112. Sodium 139, potassium 3, bicarb 25, BUN 60, creatinine 3.5, calcium 6.2, phosphorus 1.5. BNP above 35,000. Chest x-ray showing right pleural effusion, questionable of pneumonia. Assessment And Plan: 1.Chronic kidney disease on baseline, slightly on the wet side. I am going to go ahead and start th e patient on Lasix. 2.Hypertension, controlled, optimal. Continue current treatment. 3.Secondary hyperparathyroidism. Start the patient on calcitriol with vitamin D and calcium carbona te. 4.Foot infection, as by Primary. SOURAV Voice ID: [id number] Report ID: [id number]
[2019-05-13] MEDS: PIPER/TAZO/NS 2.25gm 2.25 GM/50 ML BAG IVPB SCH ×3 (00:28→12:00)
[2019-05-13] MEDS: CARVEDILOL 12.5 MG TAB PO SCH (05:59)
--- NOTE | 2019-05-13 06:44 | RAD REPORT ---
EXAM DESCRIPTION: RAD - Chest Single View - 05/13/2019 6:18 am CLINICAL HISTORY: Chest Pain Chest pain. COMPARISON: Chest Single View dated 05/12/2019; Chest Single View dated 04/24/2019; Chest Single View dated 11/26/2018; Chest Single View dated 11/25/2018 FINDINGS: Portable technique limits examination quality. Mild progression in the right-sided pulmonary opacities are noted since the comparative study. The he art is moderately enlarged with multilead pacer/defibrillator device. Sternotomy wires are present. IMPRESSION: Slight worsening in right lung aeration suspected.
[2019-05-13] MEDS: INSULIN -REGULAR HUMAN 50 UNIT/0.5 ML ML SQ SCH ×2 (07:30→11:30)
[2019-05-13] MEDS ORDERED: CALCITROL 0.25 MCG CAP PO SCH (09:00)
[2019-05-13] MEDS ORDERED: CALCITRIOL PO SCH (09:00)
[2019-05-13] MEDS: FUROSEMIDE 20 MG/ 2ML VIAL IV SCH (09:00)
[2019-05-13] MEDS ORDERED: MAGNESIUM OXIDE 400 MG TAB PO SCH (09:00)
[2019-05-13] MEDS ORDERED: CLOPIDOGREL 75 MG TABLET PO SCH ×2 (09:00)
[2019-05-13] MEDS: D5 0.45 NS 1,000 ML IV SCH (09:26)
[2019-05-13] MEDS: HYDRALAZINE HCL 10 MG TABLET PO SCH ×2 (09:36→15:12)
[2019-05-13] MEDS: CALCIUM CARB 500MG/VIT D 200 IU TAB PO SCH ×2 (09:36→15:12)
--- NOTE | 2019-05-13 12:11 | EKG ---
Test Date: 2019-05-13 Test Time: 07:58:42 Rounding Machine Operator: KAYE MEASUREMENT RESULTS: Intervals: Rate: 70 [place]: QRSD: 174 QT: 410 QTc: 442 [place]: P: NV: QRS: 183 T: -28 INTERPRETIVE STATEMENTS: Electronic ventricular pacemaker Compared to ECG 05/12/2019 07:59:03 Ventricular premature complex(es) no longer present Atrial-paced complex(es) or rhythm no longer present Electronically Signed On 05-13-19 12:10:38 CDT by Ramon James
[2019-05-13 13:21] VITALS: BP 159/103; TEMP 97.9
[2019-05-13 14:00] VITALS: O2SAT 97
--- NOTE | 2019-05-13 14:20 | P.DS ---
Admission Date: 05/12/19 Discharge Date: 05/13/19 Disposition: DC HOME/HOME HEALTH CARE Discharge Condition: FAIR Reason for Admission: Altered mental state Consultations: Nephrology - Problems (1) Hypoglycemia Onset Date: 04/09/18 Current Visit: No Status: Resolved (2) Hypomagnesemia Onset Date: 12/13/17 Current Visit: No Status: Acute (3) Hypokalemia Onset Date: 12/13/17 Current Visit: No Status: Acute (4) Chronic kidney disease, stage 5 Current Visit: Yes Status: Acute (5) Pleural effusion Onset Date: 12/13/17 Current Visit: No Status: Acute (6) UTI (urinary tract infection) Onset Date: 04/11/18 Current Visit: No Status: Acute Qualifiers: Urinary tract infection type: acute cystitis Hematuria presence: without hematuria Qualified Code(s): N30.00 - Acute cystitis without hematuria (7) Atrial fibrillation Onset Date: 12/13/17 Current Visit: No Status: Chronic Qualifiers: Atrial fibrillation type: chronic (8) DM foot ulcer Onset Date: 12/13/17 Current Visit: No Status: Chronic Qualifiers: Diabetic foot ulcer location: other Diabetes mellitus type: type 2 Laterality: left (9) Dementia Onset Date: 08/27/17 Current Visit: No Status: Chronic Qualifiers: Dementia type: unspecified type Dementia behavioral disturbance: without behavioral disturbance Qualified Code(s): F03.90 - Unspecified dementia without behavioral disturbance (10) Diabetes mellitus Onset Date: 12/13/17 Current Visit: No Status: Chronic Qualifiers: Diabetes mellitus type: type 2 Diabetes mellitus salvage determiner insulin use: without salvage determiner use Diabetes mellitus complication status: with circulatory complication (11) Malnutrition Onset Date: 12/13/17 Current Visit: No Status: Chronic Qualifiers: Malnutrition type: protein-calorie malnutrition Protein-calorie malnutrition severity: severe Qualified Code(s): E43 - Unspecified severe protein-calorie malnutrition Brief History of Present Illness: 84-year-old woman with a history of chronic atrial fibrillation , diabetes mellitus type 2, diabetic foot ulcer, status post right BKA, history of chronic kidney disease was brought to the emergency department course patient became unresponsive. She was found with a blood sugar of 40. She was given dextrose and brought to the emergency. Her blood sugar on arrival was 131. Patient is a poor historian. She is awake but not able to provide any history. BMP resulted hypokalemia and hypocalcemia. CBC showed anemia. Patient was afebrile in the ED. Noted gangrene at the tip of the left toe and the lateral edge of the left foot. Chest x-ray demonstrated multiple opacities in the right lung had slightly progressed from previous. Her UA suggest the presence of UTI. Patient was admitted for further management. Hospital Course: Patient admitted to the medical floor and treated with IV antibiotics- Vancomycin and zosyn. Her urine culture yielded mixed jc suggestive of contamination. Her blood sugar improved and stabilized. Patient was clinically a baseline. She was not requiring more oxygen, she was afebrile. She ate well today. She was evaluated by nephrology will give no further recommendation. Noted patient has a necrotic appearing wound at the tip of the left great toe and also at the lateral edge of the left foot. This suggests arterial insufficiency. Family mentioned patient has an appointment to follow with the vascular surgeon regarding that. She was continued on Lasix for CHF. Patient is clinically stable. She is discharged to home with a prescription for Cefpodoxime for possible UTI. Hypoglycemia is likely secondary to poor oral intake and decreased glycogen store from manutrition. Vital Signs/Physical Exam: Temp Pulse Resp BP Pulse Ox 97.9 F 70 16 159/103 H 100 05/13/19 12:00 05/13/19 12:00 05/13/19 12:00 05/13/19 12:00 05/13/19 12:00 General: In no apparent distress, Oriented x3 HEENT: Mucous membr. moist/pink Neck: Supple, JVD not distended, No Thyromegaly Respiratory: Clear to auscultation bilaterally, Normal air movement Cardiovascular: No edema, Regular rate/rhythm, Normal S1 S2, No murmurs Gastrointestinal: Normal bowel sounds, Soft and benign, Non-distended Musculoskeletal: No clubbing Integumentary: Other (Necrotic wound at the tip of the left great toe and lateral edge of the left foot.) Neurological: Other (Moves all extremities spontaneously.) Laboratory Data at Discharge: WBC 6.3 K/uL (4.3-10.9) 05/12/19 07:50 Hgb 10.6 g/dL (12.0-15.0) L 05/12/19 07:50 Hct 32.6 % (36.0-45.0) L 05/12/19 07:50 Plt Count 112 K/uL (152-406) L 05/12/19 07:50 PT 14.6 SECONDS (9.5-12.5) H 05/12/19 07:50 INR 1.25 05/12/19 07:50 Sodium 139 mmol/L (136-145) 05/12/19 07:50 Potassium 3.0 mmol/L (3.5-5.1) L 05/12/19 07:50 BUN 60 mg/dL (7-18) H D 05/12/19 07:50 Creatinine 3.50 mg/dL (0.55-1.3) H D 05/12/19 07:50 Glucose 131 mg/dL (74-106) H 05/12/19 07:50 Magnesium 1.5 mg/dL (1.8-2.4) L 05/12/19 07:50 Total Bilirubin 0.5 mg/dL (0.2-1.0) 05/12/19 07:50 AST 16 U/L (15-37) 05/12/19 07:50 ALT < 6 U/L (12-78) L 05/12/19 07:50 Alkaline Phosphatase 67 U/L (45-117) 05/12/19 07:50 Troponin I 0.18 ng/mL (0.0-0.045) H 05/12/19 15:45 Home Medications: Clopidogrel Bisulfate [Plavix*] 75 mg PO DAILY 11/26/18 Furosemide 40 mg PO BID 11/26/18 Hydralazine [Apresoline*] 25 mg PO TID 11/26/18 Calcitriol 1 cap PO DAILY 05/12/19 Calcium Carbonate/Vitamin D3 [Calcium 500-Vit D3 200 Tablet] 1 tab PO TID Carvedilol 1 tab PO BID 05/12/19 Cyanocobalamin [Vitamin B-12*] 1 tab PO DAILY 05/12/19 Digoxin [Lanoxin] 1 tab PO SEECOM 05/12/19 Nifedipine Xl [Procardia XL*] 1 tab PO DAILY 05/12/19 Cefpodoxime Proxetil 100 mg PO BID 5 Days #10 tablet 05/13/19 Magnesium Oxide [Mag 0X*] 400 mg PO DAILY 3 Days #3 tab 05/13/19 New Medications: Cefpodoxime Proxetil 100 mg PO BID 5 Days #10 tablet Magnesium Oxide [Mag 0X*] 400 mg PO DAILY 3 Days #3 tab
[2019-05-13] MEDS ORDERED: CARVEDILOL 25 MG TAB PO SCH (18:00)
--- NOTE | 2019-05-13 18:56 | PN ---
Date of Progress Note: 05/13/2019 Subjective: The patient was admitted with acute kidney injury on advanced chronic kidney disease wit h hypoglycemia. The patient more awake today. Blood sugar being stable. Physical Examination: Vital Signs: Blood pressure 159/58, pulse of 70, afebrile. General: More awake. Chest: Clear to auscultation. Heart: S1, S2. Regular. Abdomen: Soft, nontender. Extremities: Right below-knee amputation, left dressing. Laboratory Data: H and H 10.6/32.6. No new lab for today. Blood sugar is 96. Assessment And Plan: 1.Chronic kidney disease, stage 5. No uremic symptoms. Family still refusing dialysis. No hyperka lemia or acidosis. We will continue to monitor. 2.Hypertension, controlled, not optimal. I am going to go ahead and increase carvedilol to 25 b.i.d . 3.Secondary hyperparathyroidism. Continue calcitriol and calcium carbonate. 4.Foot infection as by primary and Ortho. 5.Anemia of chronic kidney disease, stable. I am going to give the patient a dose of Retacrit. 6.Acidosis, stable. 7.Hypoglycemia as by primary. The patient cleared from the renal standpoint for discharge planning to follow up in the office in 2-3 weeks. SOURAV Voice ID: [id number] Report ID: [id number]
[2019-05-13] MEDS ORDERED: JUVEN PACKET PO SCH (21:00)
[2019-05-15] MEDS ORDERED: FAMOTIDINE 20 MG/2 ML VIAL IV SCH (09:00)
== END 2019-05-13 16:42 | disposition home health service (06) | DRG 637 ==
LOC: ER 07:34 → ERHOLD 11:35 → 4TH 12:51
PROVIDERS: ADMIT Internal Medicine; ATTEND Internal Medicine
DX: E11.649 Type 2 diabetes mellitus with hypoglycemia without coma (principal); E43 Unspecified severe protein-calorie malnutrition; N39.0 Urinary tract infection, site not specified; I13.2 Hypertensive heart and chronic kidney disease with heart failure and with stage 5 chronic kidney disease, or end stage renal disease; I50.42 Chronic combined systolic (congestive) and diastolic (congestive) heart failure; E87.2 Acidosis; I48.20 Chronic atrial fibrillation, unspecified; Z68.1 Body mass index [BMI] 19.9 or less, adult; E11.52 Type 2 diabetes mellitus with diabetic peripheral angiopathy with gangrene; I96 Gangrene, not elsewhere classified; N18.5 Chronic kidney disease, stage 5; N17.9 Acute kidney failure, unspecified; E11.22 Type 2 diabetes mellitus with diabetic chronic kidney disease; E83.42 Hypomagnesemia; E87.6 Hypokalemia; F03.90 Unspecified dementia, unspecified severity, without behavioral disturbance, psychotic disturbance, mood disturbance, and anxiety; N25.81 Secondary hyperparathyroidism of renal origin; E11.621 Type 2 diabetes mellitus with foot ulcer; Z89.511 Acquired absence of right leg below knee; Z95.810 Presence of automatic (implantable) cardiac defibrillator
CPT/HCPCS: 36415; 51702; 71045; 80048; 80076; 80162; 81003; 82962; 83605; 83735; 83880; 84145; 84484; 85025; 85610; 87070; 87077; 87086; 87088; 87186; 87205; 93005; 94760; 96361; 96365; 96367; 96375; 99285; J0696; J1940; J2543; J3475; J7030; J7799

== ENCOUNTER 2019-05-16 08:17 | Emergency (ER) | payer OTHER ==
[2019-05-16 09:35] LABS: Absolute Lymphocytes (CBC) 0.7 K/uL (0.7-4.9); Basophils % 0.9 % (0-1.3); Hematocrit 33.5 % (36.0-45.0); MPV 8.3 fL (7.6-11.3); RBC Red Blood Cell Count 3.94 M/uL (3.86-4.86)
[2019-05-16 09:42] LABS: Protime INR 1.17
[2019-05-16 09:58] LABS: AST/SGOT 17 U/L (15-37); Albumin 1.6 g/dL (3.4-5.0); Alkaline Phosphatase 64 U/L (45-117); BUN Blood Urea Nitrogen 60 mg/dL (7-18); Bicarbonate 22 mmol/L (21-32); Bilirubin Direct 0.2 mg/dL (0-0.2); Bilirubin Total 0.4 mg/dL (0.2-1.0); Creatine Phosphokinase 39 U/L (26-192); Glucose Level 104 mg/dL (74-106); Protein, Total 5.7 g/dL (6.4-8.2); Sodium Level 140 mmol/L (136-145)
[2019-05-16 09:59] LABS: ALT/SGPT < 6 U/L (12-78); CKMB Creatine Kinase MB 2.3 ng/mL (0.3-3.6); Lipase 51 U/L (73-393); Troponin (Emerg Dept Use Only) 0.12 ng/mL (0.0-0.045)
[2019-05-16 10:00] LABS: Potassium 2.5 mmol/L (3.5-5.1)
--- NOTE | 2019-05-16 10:23 | EDPHYS ---
Physician Documentation [facility] Name: Karissa Frias Age: 84 yrs Sex: Female : 1935 Arrival Date: 05/16/2019 Time: 08:22 Bed 4 Private MD: ED Physician Bam Rizzo HPI: 05/16 08:27 This 84 yrs old Black Female presents to ER via Unassigned with complaints of Low Blood kdr Sugar. 08:27 The daughter noted that the patient was poorly responsive this morning. She felt that kdr this was similar to the last time she was brought here a few days ago when her BG was down to 16. EMS noted that the BG qwas 44 and had given her glucagon and D10 MUSHROOM GROWER. BG was up to 116 per EMS. Onset: The symptoms/episode began/occurred just prior to arrival. Severity of symptoms: At their worst the symptoms were mild in the emergency department the symptoms are unchanged. The patient has experienced similar episodes in the past. The patient has been recently seen at the [facility] Emergency Department. Historical: - Allergies: 08:36 No Known Allergies; jl7 - Home Meds: 11:30 carvedilol 12.5 mg Oral tab 1 tab 2 times per day [Active]; digoxin 125 mcg Oral tab 1 jl7 tab once daily [Active]; furosemide 40 mg Oral tab 1 tab 2 times per day [Active]; hydralazine 25 mg Oral tab 1 tab three times a day [Active]; nifedipine 90 mg Oral TbER 1 tab once daily [Active]; pantoprazole 40 mg Oral TbEC 1 tab once daily [Active]; Plavix 75 mg Oral tab 1 tab once daily [Active]; - PMHx: 08:36 Anemia; Atrial Fib; CAD; CHF; Diabetes - NIDDM; DYSPHAGIA; High Cholesterol; jl7 Hypertension; osteomyelitis; Pacemaker; Renal Disease; - Immunization history:: Adult Immunizations unknown. - Social history:: Smoking status: Patient/guardian denies using tobacco. - Ebola Screening: : No symptoms or risks identified at this time. ROS: 08:27 Constitutional: Negative for fever, chills, and weight loss, Obtained from daughter kdr Eyes: Negative for injury, pain, redness, and discharge, Neck: Negative for injury, pain, and swelling. 08:27 Cardiovascular: Positive for The daughter states that her pulse has been faint. 08:27 Respiratory: Positive for Daughter states that the patient has a history of CHF but has not had any recent changes in her respiratory status. 08:27 MS/extremity: Positive for The patient had a recent right BKA and current has a small stage one ulcer on the left heal. The daughter is managing this and this her report. The wound dressing was not removed. 08:27 Unable to obtain ROS due to altered mental status, baseline dementia. Exam: 08:27 Constitutional: This is a well developed, cachetic patient who is awake, but poorly kdr alert, and in no acute distress. Head/Face: Normocephalic, atraumatic. Eyes: Pupils equal round and reactive to light, extra-ocular motions intact. Lids and lashes normal. Conjunctiva and sclera are non-icteric and not injected. Cornea within normal limits. Periorbital areas with no swelling, redness, or edema. Neck: Trachea midline, no thyromegaly or masses palpated, and no cervical lymphadenopathy. Supple, full range of motion without nuchal rigidity, or vertebral point tenderness. No Meningismus. Chest/axilla: Normal chest wall appearance and motion. Nontender with no deformity. No lesions are appreciated. Cardiovascular: Regular rate and rhythm with a normal S1 and S2. No gallops, murmurs, or rubs. Normal PMI, no JVD. No pulse deficits. Respiratory: Lungs have equal breath sounds bilaterally, clear to auscultation and percussion. No rales, rhonchi or wheezes noted. No increased work of breathing, no retractions or nasal flaring. Abdomen/GI: Soft, non-tender, with normal bowel sounds. No distension or tympany. No guarding or rebound. No evidence of tenderness throughout. Last BM was this morning and was normal for the patinet - slightly worse Back: No spinal tenderness. No costovertebral tenderness. Full range of motion. Skin: Warm, dry with poor turgor. Normal color with no rashes, no lesions, and no evidence of cellulitis. 08:27 Neuro: Orientation: to person, Mentation: slow to respond, confused, Motor: moves all fours. Vital Signs: 08:36 BP 161 / 80; Pulse 81; Resp 19 S; Temp 97.5(O); Pulse Ox 100% on R/A; jl7 09:00 BP 151 / 67; Pulse 70; Resp 16 S; Pulse Ox 100% on R/A; jl7 10:00 BP 133 / 73; Pulse 70; Resp 16 S; Pulse Ox 100% on R/A; jl7 11:01 BP 139 / 68; Pulse 70; Resp 16 S; Pulse Ox 100% on R/A; jl7 12:00 BP 127 / 75; Pulse 71; Resp 16 S; Pulse Ox 100% on R/A; jl7 MDM: 10:23 Patient medically screened. kdr 10:25 Data reviewed: vital signs, nurses notes, lab test result(s), radiologic studies. kdr Counseling: I had a detailed discussion with the patient and/or guardian regarding: the historical points, exam findings, and any diagnostic results supporting the discharge/admit diagnosis, lab results, radiology results, the need for outpatient follow up. 05/16 08:27 Order name: Basic Metabolic Panel; Complete Time: 10:02 kdr 05/16 08:27 Order name: Blood Culture Adult (2) kdr 05/16 08:27 Order name: CBC with Diff; Complete Time: 09:51 kdr 05/16 08:27 Order name: Ckmb; Complete Time: 10:02 kdr 05/16 08:27 Order name: CPK; Complete Time: 10:02 kdr 05/16 08:27 Order name: Lactate; Complete Time: 09:51 kdr 05/16 08:27 Order name: LFT's; Complete Time: 10:02 kdr 05/16 08:27 Order name: Lipase; Complete Time: 10:02 kdr 05/16 08:27 Order name: Procalcitonin; Complete Time: 11:55 kdr 05/16 08:27 Order name: Protime (+inr); Complete Time: 09:51 kdr 05/16 08:27 Order name: Ptt, Activated; Complete Time: 09:51 kdr 05/16 08:27 Order name: Troponin (emerg Dept Use Only); Complete Time: 10:02 kdr 05/16 08:39 Order name: NOVA jl7 05/16 08:27 Order name: Chest Single View XRAY; Complete Time: 11:55 kdr 05/16 08:27 Order name: Accucheck; Complete Time: 08:44 kdr 05/16 08:27 Order name: Cardiac monitoring; Complete Time: 08:44 kdr 05/16 08:27 Order name: EKG - Nurse/Tech; Complete Time: 08:44 kdr 05/16 08:27 Order name: IV Saline Lock - Large Bore; Complete Time: 09:19 kdr 05/16 08:27 Order name: Labs collected and sent; Complete Time: 09:19 kdr 05/16 08:27 Order name: O2 Per Protocol; Complete Time: 08:43 kdr 05/16 08:39 Order name: Glucose, Ancillary (Novameter); Complete Time: 09:51 EDMS 05/16 10:55 Order name: Glucometer Result Nova; Complete Time: 11:55 ms 05/16 08:27 Order name: O2 Sat Monitoring; Complete Time: 08:43 kdr Administered Medications: 10:40 Drug: Potassium Chloride 20 mEq Route: IV; Rate: calculated rate; Site: right wrist; jl7 12:40 Follow up: Response: No adverse reaction; IV Status: Completed infusion jl7 10:47 Not Given (Other Intervention Used): Potassium Chloride 40 mEq PO once jl7 10:55 Drug: Calcium Gluconate 1 grams Route: IVPB; Infused Over: 60 mins; Site: right wrist; jl7 11:55 Follow up: IV Status: Completed infusion la1 12:16 Drug: Rocephin 1 grams {Note: line flushed prior to administration with 5 ml NS.} la1 Route: IV; Rate: calculated rate; Site: right wrist; 12:19 Follow up: IV Status: Completed infusion; Line flushed post administration with 5 mL NS la1 12:22 Drug: vancoMYCIN 1 grams Route: IVPB; Infused Over: 2 hrs; Site: right wrist; la1 12:39 Follow up: IV Status: Infusion continued upon transfer jl7 12:23 Not Given (Other Intervention Used): Rocephin - (cefTRIAXone) 1 grams IVPB once over 30 la1 mins; (mix in 50 mL NS) 12:31 Not Given (Patient Refused): Potassium Effervescent Tablet 50 mEq PO once; dissolve in la1 4 ounces of water or juice Point of Care Testing: Blood Glucose: 08:36 Blood Glucose: 104 mg/dL; jl7 Ranges: Critical Glucose Levels:Adult <50 mg/dl or >400 mg/dl <40 mg/dl or >180 mg/dl Disposition: 05/16/19 10:23 Transfer ordered to Other Acute Care Facility. Diagnosis are Weakness, Altered mental status, unspecified, Hypoglycemia, unspecified, Hypokalemia, Hypocalcemia, Chronic Renal Failure,, Dehydration, Ulcerated wound left heal - unchanged. - Reason for transfer: Higher level of care. - Accepting physician is [facility] . - Condition is Fair. - Problem is an ongoing problem. - Symptoms have improved. Signatures: Dispatcher [employer] EDBam Meza MD MD kdr Alvin Todd RN RN la1 Arie Han RN RN jl7 Corrections: (The following items were deleted from the chart) 12:53 10:23 05/16/2019 10:23 Transfer ordered to Other Acute Care Facility. Diagnosis is jl7 Weakness; Altered mental status, unspecified; Hypoglycemia, unspecified; Hypokalemia; Hypocalcemia; Chronic Renal Failure,; Dehydration; Ulcerated wound left heal - unchanged. Reason for transfer: Higher level of care. Accepting physician is [facility] . Condition is Fair. Problem is an ongoing problem. Symptoms have improved. kdr
--- NOTE | 2019-05-16 10:23 | ER ---
Nurse's Notes [facility] Name: Karissa Frias Age: 84 yrs Sex: Female : 1935 Arrival Date: 05/16/2019 Time: 08:22 Bed 4 Private MD: Diagnosis: Weakness;Altered mental status, unspecified;Hypoglycemia, unspecified;Hypokalemia;Hypocalcemia;Chronic Renal Failure,;Dehydration;Ulcerated wound left heal - unchanged Presentation: 05/16 08:32 Presenting complaint: EMS states: Pt's daughter called due to pt being unresponsive, jl7 BGL 44 on arrival, 53 after glucagon, 166 after 250 mL D10 IV. Transition of care: patient was not received from another setting of care. Onset of symptoms was May 16, 2019. Risk Assessment: Do you want to hurt yourself or someone else? Patient reports no desire to harm self or others. Initial Sepsis Screen: Does the patient meet any 2 criteria? No. Patient's initial sepsis screen is negative. Does the patient have a suspected source of infection? No. Patient's initial sepsis screen is negative. Care prior to arrival: IV initiated. 20 GA, in the left forearm, Glucose check: 44. Care prior to arrival: Glucose check: 53. Care prior to arrival: Glucose check: 166. 08:32 Method Of Arrival: EMS: [facility] 08:32 Acuity: LAURO 2 jl7 Historical: - Allergies: 08:36 No Known Allergies; jl7 - Home Meds: 11:30 carvedilol 12.5 mg Oral tab 1 tab 2 times per day [Active]; digoxin 125 mcg Oral tab 1 jl7 tab once daily [Active]; furosemide 40 mg Oral tab 1 tab 2 times per day [Active]; hydralazine 25 mg Oral tab 1 tab three times a day [Active]; nifedipine 90 mg Oral TbER 1 tab once daily [Active]; pantoprazole 40 mg Oral TbEC 1 tab once daily [Active]; Plavix 75 mg Oral tab 1 tab once daily [Active]; - PMHx: 08:36 Anemia; Atrial Fib; CAD; CHF; Diabetes - NIDDM; DYSPHAGIA; High Cholesterol; jl7 Hypertension; osteomyelitis; Pacemaker; Renal Disease; - Immunization history:: Adult Immunizations unknown. - Social history:: Smoking status: Patient/guardian denies using tobacco. - Ebola Screening: : No symptoms or risks identified at this time. Screenin:19 Abuse screen: Denies threats or abuse. Denies injuries from another. Tuberculosis jl7 screening: No symptoms or risk factors identified. Fall Risk No fall in past 12 months (0 pts). Secondary diagnosis (15 points) impaired mobility, IV access (20 points). Ambulatory Aid- None/Bed Rest/Nurse Assist (0 pts). Gait- Normal/Bed Rest/Wheelchair (0 pts) Mental Status- Overestimates/Forgets Limitations (15 pts.). Total Turner Fall Scale indicates High Risk Score (45 or more points). Fall prevention measures have been instituted. Side Rails Up X 2 Placed Close to Nursing Station Frequent Obs/Assessments Occuring Family Present and informed to notify staff if the need to leave the bedside As available patient and family educated on Fall Prevention Program and Strategies. 10:00 Nutritional screening: Intervention for positive screen: ED Physician notified, Pt's jl7 daughter reports "She wont eat or drink. She just says no and turns her head. I want a PEG tub put in.". Assessment: 08:30 General: Appears in no apparent distress. uncomfortable, malnourished, Behavior is jl7 anxious, fussy. Pain: Complains of pain in back. Neuro: Level of Consciousness is awake, Oriented to person. Cardiovascular: Patient's skin is warm and dry. Rhythm is atrial pacer. Respiratory: Airway is patent Respiratory effort is even, unlabored, Respiratory pattern is regular, symmetrical. GI: Abdomen is flat, non-distended. Derm: Skin is dry, Skin is normal, Skin temperature is warm. 09:19 Reassessment: Pt and family refuse straight cath, ERD notified. jl7 09:30 Reassessment: Patient appears in no apparent distress at this time. No changes from jl7 previously documented assessment. Patient and/or family updated on plan of care and expected duration. Pain level reassessed. 11:01 Reassessment: Patient appears in no apparent distress at this time. No changes from jl7 previously documented assessment. Patient and/or family updated on plan of care and expected duration. Pain level reassessed. 12:00 Reassessment: Patient appears in no apparent distress at this time. No changes from jl7 previously documented assessment. Patient and/or family updated on plan of care and expected duration. Pain level reassessed. 12:40 Reassessment: [facility] at bedside to transfer pt. jl7 Vital Signs: 08:36 BP 161 / 80; Pulse 81; Resp 19 S; Temp 97.5(O); Pulse Ox 100% on R/A; jl7 09:00 BP 151 / 67; Pulse 70; Resp 16 S; Pulse Ox 100% on R/A; jl7 10:00 BP 133 / 73; Pulse 70; Resp 16 S; Pulse Ox 100% on R/A; jl7 11:01 BP 139 / 68; Pulse 70; Resp 16 S; Pulse Ox 100% on R/A; jl7 12:00 BP 127 / 75; Pulse 71; Resp 16 S; Pulse Ox 100% on R/A; jl7 ED Course: 08:22 Patient arrived in ED. iw 08:26 Bam Rizzo MD is Attending Physician. kdr 08:32 Arie Han RN is Primary Nurse. jl7 08:35 Triage completed. jl7 08:36 Arm band placed on right wrist. jl7 09:10 Inserted saline lock: 24 gauge in right forearm, using aseptic technique. Blood jl7 collected. 09:10 Initial lab(s) drawn, by sd, sent to lab. First set of blood cultures drawn by sd. jl7 09:19 Patient has correct armband on for positive identification. Bed in low position. Call jl7 light in reach. Side rails up X2. Adult w/ patient. rubber goods assembler on. Pulse ox on. NIBP on. Warm blanket given. 09:25 Chest Single View XRAY In Process Unspecified. EDMS 10:26 initiated a transfer with Mrs. Esquivel from the [facility] at [phone]. 10:40 connected the hospitalist automation driver for [facility] Dr. Lemons with Dr. jamia Damico for patient transfer consultation. 10:43 NOVA Sent. jl7 10:45 administrative approval given by Alvin Royal/ Patient has been accepted to [facility] bed 513/ Dr. Torres has accepted the patient in transfer. report to be called to [phone]. 12:41 No provider procedures requiring assistance completed. Patient transferred, IV remains jl7 in place. intact, No redness/swelling at site. Administered Medications: 10:40 Drug: Potassium Chloride 20 mEq Route: IV; Rate: calculated rate; Site: right wrist; jl7 12:40 Follow up: Response: No adverse reaction; IV Status: Completed infusion jl7 10:47 Not Given (Other Intervention Used): Potassium Chloride 40 mEq PO once jl7 10:55 Drug: Calcium Gluconate 1 grams Route: IVPB; Infused Over: 60 mins; Site: right wrist; jl7 11:55 Follow up: IV Status: Completed infusion la1 12:16 Drug: Rocephin 1 grams {Note: line flushed prior to administration with 5 ml NS.} la1 Route: IV; Rate: calculated rate; Site: right wrist; 12:19 Follow up: IV Status: Completed infusion; Line flushed post administration with 5 mL NS la1 12:22 Drug: vancoMYCIN 1 grams Route: IVPB; Infused Over: 2 hrs; Site: right wrist; la1 12:39 Follow up: IV Status: Infusion continued upon transfer jl7 12:23 Not Given (Other Intervention Used): Rocephin - (cefTRIAXone) 1 grams IVPB once over 30 la1 mins; (mix in 50 mL NS) 12:31 Not Given (Patient Refused): Potassium Effervescent Tablet 50 mEq PO once; dissolve in la1 4 ounces of water or juice Point of Care Testing: Blood Glucose: 08:36 Blood Glucose: 104 mg/dL; jl7 Ranges: Intake: Outcome: 10:23 ER care complete, transfer ordered by . kdr 12:41 Transferred by ground EMS to [facility], Transfer form completed. jl7 12:41 Condition: stable 12:41 Discharge instructions given to patient, Instructed on the need for transfer, Demonstrated understanding of instructions. 12:53 Patient left the ED. jl7 Signatures: Dispatcher [employer] EDMS Bam Rizzo MD MD kdr Williams, Irene, RN RN iw Attema, Lee, RN RN la1 Leal, Jahala, RN RN jl7 Lisa Gusman Corrections: (The following items were deleted from the chart) 12:30 12:15 IV Pause: 05/16/2019 12:15; IV Pause Reason: Limited IV access/Medication la1 interaction la1 12:31 12:21 IV Status: Infusion continued la1 la1
[2019-05-16] MEDS ORDERED: POTASSIUM CL SA 10 MEQ TAB PO ONE (10:31)
[2019-05-16] MEDS ORDERED: KCL 20 MEQ/100 mL IVPB 20 MEQ/100 ML BAG IV ONE (10:32)
[2019-05-16] MEDS ORDERED: POTASSIUM 25 MEQ EFFERV TAB ONE (10:48)
--- NOTE | 2019-05-16 10:52 | RAD REPORT ---
EXAM DESCRIPTION: RAD - Chest Single View - 05/16/2019 9:24 am CLINICAL HISTORY: AMS, hypoglycemia Chest pain. COMPARISON: Chest Single View dated 05/13/2019; Chest Single View dated 05/12/2019; Chest Single View dated 04/24/2019; Chest Single View dated 11/26/2018 FINDINGS: Portable technique limits examination quality. Moderate bilateral pulmonary opacities are noted, progressive in the right lung compared to prior charis dy. Most likely, this represents pulmonary edema or pneumonia. The heart is upper limit normal size w ith multilead pacer/defibrillator device present. Sternotomy wires present.
[2019-05-16] MEDS ORDERED: CALCIUM GLUCONATE 1gm/100 ML NS (4.65 mEq/100mL) IV ONE ×2 (11:00)
[2019-05-16] MEDS ORDERED: CEFTRIAXONE/SWI 1gm 1 GM/10 ML SYR ONE (12:13)
[2019-05-16] MEDS ORDERED: VANCOMYCIN/NS 1 gm 1 GM/250 ML BAG IVPB ONE (13:00)
[2019-05-16 13:13] VITALS: TEMP 97.5; O2SAT 100
[2019-05-16 13:18] VITALS: BP 127/75
--- NOTE | 2019-05-17 13:05 | EKG ---
Test Date: 2019-05-16 Test Time: 08:20:45 Guillotine Operator: DAISY MEASUREMENT RESULTS: Intervals: Rate: 77 HI: QRSD: 172 QT: 360 QTc: 407 [place]: P: HI: QRS: 215 T: -64 INTERPRETIVE STATEMENTS: Ventricular-paced rhythm with occasional premature ventricular complexes Biventricular pacemaker detected Abnormal ECG Compared to ECG 05/13/2019 07:58:42 Ventricular premature complex(es) now present Electronically Signed On 05-17-19 13:03:41 CDT by Arik Roa
== END 2019-05-16 12:53 ==
LOC: ER 08:17
DX: E11.649 Type 2 diabetes mellitus with hypoglycemia without coma (principal); E87.6 Hypokalemia; E83.51 Hypocalcemia; E86.0 Dehydration; R41.82 Altered mental status, unspecified; L97.429 Non-pressure chronic ulcer of left heel and midfoot with unspecified severity; I12.9 Hypertensive chronic kidney disease with stage 1 through stage 4 chronic kidney disease, or unspecified chronic kidney disease; E11.22 Type 2 diabetes mellitus with diabetic chronic kidney disease; N18.9 Chronic kidney disease, unspecified; I48.91 Unspecified atrial fibrillation; I50.9 Heart failure, unspecified; E78.00 Pure hypercholesterolemia, unspecified; Z79.01 Long term (current) use of anticoagulants; Z95.0 Presence of cardiac pacemaker; Z89.511 Acquired absence of right leg below knee
CPT/HCPCS: 96365; 96367; 96368; 93005; 87040; 85025; 80048; 36415; 82550; 85610; 82962 ×2; 80076; 83605; 85730; 84484; 82553; 83690; 84145; 71045; 96375; 99285; 96366; J0610; J3370; J0696